=== PATIENT | male | born 1955 | race Caucasian/White ===

== ENCOUNTER 2017-07-18 22:10 | Inpatient (IN) | payer MEDICAID ==
[~2017-07-18] VITALS: Ht 175.3 cm; Wt 95.8 kg
[~2017-07-18 22:10] MED LIST: ASPI325T4 PO; ATOR20TA17 PO; CARV3.1260 PO; CLOP75TA19 PO; METF500T4 PO; NITR0.4T32 SL; PANT40TA3 PO; VALS320T11 PO; [UNRECOGNIZED DRUG - CODE] TD
[2017-07-18 22:13] VITALS: Ht 175.3 cm; Wt 95.8 kg
[2017-07-18] MEDS ORDERED: ASPIRIN 81 MG TAB PO STA (22:17)
[2017-07-18] MEDS ORDERED: NITROGLYCERIN 2% 1 GM OINT PKT TD ONE (23:00)
[2017-07-18 23:32] LABS: BASOPHIL # 0.1 10^3/ul (0.0-0.1); BASOPHILS % 0.4 % (0.0-2.0); EOSINOPHILS # 0.1 10^3/ul (0.0-0.5); EOSINOPHILS % 0.8 % (0.0-7.0); HEMOGLOBIN 14.9 g/dl (14.0-18.0); LYMPHOCYTES # 2.7 10^3/ul (0.8-2.9); LYMPHOCYTES % 17.8 % (15.0-51.0); MEAN CORPUSCULAR HEMOGLOBIN 30.5 pg (29.0-33.0); MEAN CORPUSCULAR HGB CONC 33.1 g/dl (32.0-37.0); MEAN PLATELET VOLUME 12.6 fl (7.4-10.4); MONOCYTES % 6.4 % (0.0-11.0); NEUTROPHIL # 11.3 10^3/ul (1.6-7.5); NEUTROPHILS % 74.1 % (39.0-77.0); PLATELET COUNT 205 10^3/UL (140-415); RED BLOOD COUNT 4.89 10^6/ul (4.70-6.10); WHITE BLOOD COUNT 15.2 10^3/ul (4.8-10.8)
[2017-07-18 23:48] LABS: INR 1.01; PROTIME 13.3 Sec (12.2-14.2)
[2017-07-18 23:49] LABS: PARTIAL THROMBOPLASTIN TIME 28.4 Sec (25.0-35.0)
[2017-07-18 23:51] LABS: ANION GAP 13 (8-16); BLOOD UREA NITROGEN 13 mg/dl (7-20); CARBON DIOXIDE 25 mmol/L (21-31); CHLORIDE 104 mmol/L (97-110); CREATININE 0.78 mg/dl (0.61-1.24); GLUCOSE 270 mg/dl (70-220); POTASSIUM 4.2 mmol/L (3.5-5.1); SODIUM 138 mmol/L (135-144)
--- NOTE | 2017-07-18 23:51 | ERA ---
ER Documentation Chief Complaint Date/Time DATE: 07/18/17 TIME: 23:43 Chief Complaint CP AND SOB HPI This 62-year-old male comes emergency room for acute onset of chest pain and shortness of breath proximately 1 hour prior to arrival. The pain is left- sided and substernal described as a pressure-like squeezing sensation. He has no nausea. In the ambulance he received 3 sprays of nitroglycerin as well as 162 mg of aspirin. He was saturating 82% when the paramedics arrived at his home on room air. This decreases chest pain substantially and it is almost completely subsided currently. He still feels very short of breath . ROS All systems reviewed and are negative except as per history of present illness. Medications Home Meds Reported Medications Valsartan* (Diovan*) 320 Mg Tablet, 320 MG PO BID 04/27/13 Nitroglycerin* (Nitroglycerin* SL) 0.4 Mg Tab.subl, 0.4 MG SL [id number] 08/18/12 Nitroglycerin* (Nitro-Dur* Patch) 1 Patch Patch, 1 PATCH TD q24h 08/18/12 Metformin* (Glucophage*) 500 Mg Tab, 500 MG PO BID 08/18/12 Clopidogrel Bisulfate (Plavix) 75 Mg Tablet, 75 MG PO DAILY 08/18/12 Atorvastatin (Lipitor) 20 Mg Tablet, 20 MG PO DAILY 08/18/12 Pantoprazole* (Protonix*) 40 Mg Tablet.dr, 40 MG PO DAILY 08/18/12 Aspirin* (Aspirin*) 325 Mg Tablet, 325 MG PO DAILY 08/18/12 Carvedilol* (Carvedilol*) 3.125 Mg Tablet, 3.125 MG PO BID 08/18/12 Allergies Allergies: Coded Allergies: No Known Allergy (Verified , 04/27/13) PMhx/Soc History of Surgery: No Anesthesia Reaction: No Hx Neurological Disorder: No Hx Respiratory Disorders: No Hx Cardiac Disorders: Yes ([place] 2008 w/PTCA/Stent RCA VPH) Hx Psychiatric Problems: No Hx Alcohol Use: No (social) Hx Substance Use: No Hx Tobacco Use: Yes (1 pk/day) Smoking Status: Former smoker Physical Exam Vitals Vital Signs Date Time Temp Pulse Resp B/P Pulse Ox O2 Delivery O2 Flow Rate FiO2 07/19/17 00:20 102 20 94 100 07/19/17 00:10 80 100 07/18/17 23:16 96 15.0 100 07/18/17 22:35 Rebreather 10.0 07/18/17 22:30 Rebreather 15 07/18/17 22:13 98.7 97 33 161/90 97 Physical Exam Const: [] Moderate to severe respiratory distress, appears extremely uncomfortable. Eyes: Normal Conjunctiva ENT: Normal External Ears, Nose and Mouth. Neck: Full range of motion..Moderate JVD. Resp: Bilateral bibasilar rales with decreased bibasilar breath sounds, accessory muscle use of the abdominal muscles as well as tachypnea with respiratory rate approximately 36-40.. Cardio: Regular rate and rhythm, no murmurs Abd: Soft, non tender, non distended. Normal bowel sounds Skin: No petechiae or rashes Back: No midline or flank tenderness Ext: No cyanosis, or edema Neur: Awake and alertAnd oriented 3, no focal deficits. Psych: Anxiety Result Diagram: 07/18/17223107/18/172231 Results 24 hrs Laboratory Tests Test 07/18/17 22:32 White Blood Count 15.210^3/ul Red Blood Count 4.8910^6/ul Hemoglobin 14.9g/dl Hematocrit 45.0% Mean Corpuscular Volume 92.0fl Mean Corpuscular Hemoglobin 30.5pg Mean Corpuscular Hemoglobin Concent 33.1g/dl Red Cell Distribution Width 13.0% Platelet Count 02151^3/UL Mean Platelet Volume 12.6fl Neutrophils % 74.1% Lymphocytes % 17.8% Monocytes % 6.4% Eosinophils % 0.8% Basophils % 0.4% Nucleated Red Blood Cells % 0.0/100WBC Neutrophils # 11.310^3/ul Lymphocytes # 2.710^3/ul Monocytes # 1.010^3/ul Eosinophils # 0.110^3/ul Basophils # 0.110^3/ul Nucleated Red Blood Cells # 0.010^3/ul Prothrombin Time 13.3Sec Prothrombin Time Ratio 1.0 INR International Normalized Ratio 1.01 Activated Partial Thromboplast Time 28.4Sec Sodium Level 138mmol/L Potassium Level 4.2mmol/L Chloride Level 104mmol/L Carbon Dioxide Level 25mmol/L Anion Gap 13 Blood Urea Nitrogen 13mg/dl Creatinine 0.78mg/dl Glucose Level 270mg/dl Calcium Level 9.0mg/dl Troponin I < 0.012ng/ml B-Type Natriuretic Peptide 2290PG/ML Current Medications Medications (Trade) Dose Ordered Sig/Masha Route PRN Reason Start Time Stop Time Status Last Admin Dose Admin Aspirin (Aspirin) 162 mg ONCE STAT PO 07/18/17 22:17 07/18/17 22:19 DC 07/18/17 22:30 Nitroglycerin (Nitroglycerin 2% Oint) 1 inch ONCE ONCE TD 07/18/17 23:00 07/18/17 23:01 DC 07/18/17 22:50 Lorazepam (Ativan) 1 mg ONCE ONCE IV 07/19/17 00:00 07/19/17 00:01 DC 07/19/17 00:29 Lorazepam (Ativan) 1 mg ONCE ONCE IV 07/19/17 00:00 07/19/17 00:01 DC 07/19/17 00:29 Furosemide 40 mg 40 mg ONCE ONCE IV 07/19/17 00:30 07/19/17 00:31 DC 07/19/17 00:25 Nitroglycerin/ Dextrose (Nitroglycerin 50 Mg/D5W (Pmx)) 250 ml @ 0 mls/hr TITRATE IV 07/19/17 00:30 07/19/17 00:20 Ondansetron HCl 4 mg 4 mg ONCE STAT IV 07/19/17 00:10 07/19/17 00:15 DC 07/19/17 00:25 Propofol 100 ml @ 0 mls/hr TITRATE ONCE IV 07/19/17 00:30 07/19/17 00:31 DC 07/19/17 00:26 Nitroglycerin/ Dextrose (Nitroglycerin 50 Mg/D5W (Pmx)) 250 ml @ ud STK-MED ONCE .ROUTE 07/19/17 00:18 07/19/17 00:19 DC Procedures/MDM Acute decompensated congestive heart failure with chest pain. Patient is in significant respiratory distress on arrival. He adamantly refuses BiPAP multiple attempts by myself and the charge nurse to tell him that he would likely end up intubated if he does not allow it. Was started on a nitro drip as his heart rate went up after the nitro spray and pasted worn off. Decompensation continued and the patient began to desat he finally allowed for BiPAP after he was given 2 mg of Ativan began to lose mental status with desaturation on BiPAP. He was intubated with return of a large amount of frothy pimk sputum. Was a delay in his chest x-ray which did reveal diffuse pulmonary edema. Was placed on propofol drip.Was also given Lasix 40 mg and 162 mg of aspirin and nitro placed had been applied. Is going to be admitted to ICU under Dr. Foster EKG interpretation: Normal sinus rhythm rate of 98, T-wave inversions in the inferior leads concerning for ischemia, possible hyperacute T waves, no ST elevations or depressions concerning for acute ischemia, normal intervals. vehicle monitor technician interpretation: Alternated high normal sinus rhythm and sinus tachycardia without other arrhythmia Chest x-ray interpretation: Diffuse pulmonary edema without pneumothorax, no fractures, no widened mediastinum. Critical care time 46 minutes: This includes management of acute decompensated congestive heart failure with unstable blood pressure, respiratory rate and hypoxia, ventilator management, use of nitro drip, chart review, discussion with patient's family, patient and admitting doctor, multiple visits patient's bedside to reassess status. This does not include any billable procedures ET intubation note: Patient was preoxygenated with bag mask ventilation and oxygen saturation maximum of 96 able to obtain, RSI was used with 20 mg of etomidate and 100 mg of rocuronium, size 7.5 ET tube was easily introduced through visualized vocal cords using a MAC 4 blade. Patient taught the procedure with no complications. Oxygen saturation is 100% after the procedure. Departure Diagnosis: Primary Impression: Acute CHF Additional Impressions: Acute respiratory failure with hypoxia Chest pain Hyperglycemia due to type 2 diabetes mellitus Condition: Critical BOB WHITING DO Jul 18, 2017 23:51
[2017-07-19] VITALS (52 sets, daily range): BP systolic 89–135; BP diastolic 47–75; PULSE 71–82; RESP 18–28; TEMP 98.6
[2017-07-19] MEDS ORDERED: LORAZEPAM 2 MG INJ IV ONE ×2
[2017-07-19 00:07] LABS: B-TYPE NATRIURETIC PEPTIDE 2290 PG/ML (0-125)
[2017-07-19] MEDS ORDERED: ONDANSETRON 4 MG INJ IV STA (00:10)
[2017-07-19 00:11] LABS: TROPONIN-I < 0.012 ng/ml (0.00-0.12)
[2017-07-19] MEDS ORDERED: NITROGLYCERIN 50 MG/D5W (PMX) 250 ML ONE (00:18)
[2017-07-19] MEDS ORDERED: PROPOFOL 100 ML IV ONE (00:30)
[2017-07-19] MEDS ORDERED: NITROGLYCERIN 50 MG/D5W (PMX) 250 ML IV SCH (00:30)
[2017-07-19] MEDS ORDERED: FUROSEMIDE 40 MG INJ IV ONE (00:30)
--- NOTE | 2017-07-19 00:35 | RADRPT ---
PROCEDURE: XR Chest. CLINICAL INDICATION: Chest pain TECHNIQUE: Single frontal view of the chest was obtained COMPARISON: 04/27/2013 FINDINGS: There is appearance of minimal enlargement of the cardiac silhouette, pulmonary vascular congestion and bilateral lung densities consistent with interstitial and alveolar pulmonary edema and very smal l pleural effusions appearing since the previous study. ECG lead projected over the chest. IMPRESSION: Consistent with congestive heart failure and pulmonary edema and very small pleural effusions appear ing since previous study. Please see above. RPTAT: HJES .Darius Briones MD, MD Date Time Electronically viewed and signed by .Darius Briones MD, MD on 07/19/2017 00:34 .S/
[2017-07-19] MEDS ORDERED: ONDANSETRON 4 MG INJ IV PRN (01:30)
[2017-07-19] MEDS ORDERED: ALBUTEROL/IPRATROPIUM (NEB) 3 ML AMP NEB PRN (01:30)
[2017-07-19 01:38] LABS: AADO2 Arterial 586.3 mmHg (7.0-24.0); Allen Test ACCEPTAB; Arterial Base Excess -3.9 mmol/L (-3.0-3); Arterial COHb 0.4 % (0.0-3.0); Arterial Fraction of Oxyhgb 90.3 % (93.0-99.0); Arterial MetHb 0.3 % (0.0-1.5); Arterial Total Hemglobin 19.2 g/dl (12.0-18.0); MODE VENT - AC
[2017-07-19] MEDS ORDERED: DEXTROSE 50% 50 ML SYRINGE IV PRN ×2 (02:00)
[2017-07-19] MEDS ORDERED: GLUCOSE GEL 15 GRAM TUBE BUCCAL PRN (02:00)
[2017-07-19] MEDS ORDERED: GLUCOSE GEL 15 GRAM TUBE PO PRN ×2 (02:00)
[2017-07-19] MEDS ORDERED: GLUCAGON 1 MG INJ IM PRN (02:00)
[2017-07-19] MEDS: ACCU-CHEK XX SCH (02:36)
--- NOTE | 2017-07-19 02:41 | RADRPT ---
PROCEDURE: XR Chest. CLINICAL INDICATION: The patient is status post intubation. TECHNIQUE: Single frontal view of the chest. COMPARISON: 04/27/2013. FINDINGS: Endotracheal intubation is seen, with tip about 4 cm above the lefty. Cardiomegaly with atheroscler otic calcifications in the thoracic aorta. Dense bilateral air space disease is new over interval, with air bronchograms. There is a mild left pleural effusion. The right costophrenic angle is not included on the film, and cannot be evaluated. No signs of pneumothorax are seen. The osseous structures and soft tissues are unremarkable. IMPRESSION: 1. New dense bilateral air space disease, with air bronchograms. 2. Differential considerations include severe failure versus bilateral pneumonias. 3. New endotracheal intubation is seen, with tip about 4 cm above the lefty. RPTAT: [facility] Physician Vincent Date Time Electronically viewed and signed by Physician Vincent on 07/19/2017 02:40 RS/
[2017-07-19] MEDS ORDERED: INSULIN LISPRO 100 UNIT/ML VIAL SC STA ×2 (03:05→05:42)
[2017-07-19] MEDS: PROPOFOL 100 ML IV SCH ×5 (04:14→23:33)
[2017-07-19] MEDS ORDERED: DEXTROSE 5%-0.45% NACL 1,000 ML IV SCH (04:30)
[2017-07-19] MEDS ORDERED: INSULIN ASPART [NOVOLOG] 3 ML PEN SC SCH ×2 (05:00→07:35)
[2017-07-19] MEDS ORDERED: INSULIN ASPART [NOVOLOG] 3 ML PEN SC ONE ×2 (05:30→06:00)
[2017-07-19 05:35] LABS: AADO2 Arterial 585.1 mmHg (7.0-24.0); Allen Test ACCEPTAB; Arterial Base Excess -1.1 mmol/L (-3.0-3); Arterial COHb 1.4 % (0.0-3.0); Arterial Fraction of Oxyhgb 95.5 % (93.0-99.0); Arterial HCO3 23.5 mmol/L (22.0-26.0); Arterial MetHb 0.2 % (0.0-1.5); Arterial Total Hemglobin 16.6 g/dl (12.0-18.0); MODE VENT - AC
[2017-07-19 05:37] LABS: BASOPHIL # 0.1 10^3/ul (0.0-0.1); BASOPHILS % 0.3 % (0.0-2.0); EOSINOPHILS % 0.1 % (0.0-7.0); HEMATOCRIT 47.9 % (42.0-52.0); HEMOGLOBIN 15.9 g/dl (14.0-18.0); LYMPHOCYTES # 1.9 10^3/ul (0.8-2.9); LYMPHOCYTES % 11.9 % (15.0-51.0); MEAN CORPUSCULAR HEMOGLOBIN 30.8 pg (29.0-33.0); MEAN CORPUSCULAR HGB CONC 33.2 g/dl (32.0-37.0); MEAN CORPUSCULAR VOLUME 92.8 fl (82.0-101.0); MEAN PLATELET VOLUME 12.3 fl (7.4-10.4); MONOCYTE # 1.4 10^3/ul (0.3-0.9); MONOCYTES % 8.8 % (0.0-11.0); NEUTROPHIL # 12.8 10^3/ul (1.6-7.5); NEUTROPHILS % 78.5 % (39.0-77.0); PLATELET COUNT 184 10^3/UL (140-415); RED BLOOD COUNT 5.16 10^6/ul (4.70-6.10); RED CELL DISTRIBUTION WIDTH 12.7 % (11.5-14.5); WHITE BLOOD COUNT 16.3 10^3/ul (4.8-10.8)
--- NOTE | 2017-07-19 05:51 | HP ---
Date/Time of Note Date/Time of Note DATE: 07/19/17 TIME: 05:36 Assessment/Plan VTE Prophylaxis VTE Prophylaxis Intervention: heparin Lines/Catheters IV Catheter Type (from Nrsg): Saline Lock Urinary Cath still in place: Yes Reason Cath still needed: terminal illness/intractable pain Assessment/Plan Assessment/Plan 1. Hypoxic and hypercarbic respiratory failure, s/p intubation. This is most likely from CHF exacerbation -Continue vent support -Breathing treatments -IV Lasix -Monitor urine output -2D echo -Pulmonary consult -will send additional troponin, initially given history of CAD -Repeat ABG in am. 2. Acute on chronic CHF, systolic -See #1 -Cardiology consult 3. Diabetes with hyperglycemia -Adjust insulin as needed for better glycemic control -Check A1c in a.m. 4. SIRS, no obvious source of infection -Chest x-ray without infiltrate. Will obtain UA, urine culture and blood culture 5. History of CAD, s/p PCI with stent in 2012 -Continue cardiac meds -Trend troponin -2D echo and cardiology consult HPI/ROS Admit Date/Time Admit Date/Time Jul 19, 2017 at 00:28 Hx of Present Illness This is a 62-year-old male with a history of diabetes hypertension CAD status post PCI with stent in 2012 and a CHF with systolic dysfunction with EF of 30% in 2012, noncompliance who presented to the emergency department complaining of shortness of breath. Patient was hypoxic with O2 sat of 82% and was using his accessory muscles when he presented to ER. He was initially placed on BiPAP and now he is intubated and admitted to ICU. ABG on FiO2 of 100% shows pH 7.24 , PCO2 59, PO2 67 and a bicarb 25. Labs shows a WBC of 15,000, glucose 300 and a BNP 2300. Chest x-ray consistent with congestive heart failure and pulmonary edema and very small pleural effusions appearing since previous study from 2012. . PMH/Family/Social Social History Smoking Status: Former smoker Exam/Review of Systems Vital Signs Vitals Vital Signs Date Time Temp Pulse Resp B/P Pulse Ox O2 Delivery O2 Flow Rate FiO2 07/19/17 05:02 100 07/19/17 04:48 78 25 99 07/19/17 04:45 101/68 07/19/17 04:30 Mechanical Ventilator 07/19/17 04:00 100.0 07/19/17 02:30 15.0 Intake and Output 07/18/17 07/18/17 07/19/17 15:00 23:00 07:00 Intake Total 15 ml Output Total 850 ml Balance -835 ml Exam Constitutional: other (Intubated, looks comfortable on a vent) Head: atraumatic, normocephalic Eyes: PERRL Respiratory: diminished breath sounds Cardiovascular: regular rate and rhythm Gastrointestinal: non-tender, soft Extremities: normal pulses Labs Result Diagram: 07/18/17223107/18/172231 Medications Medications Current Medications Nitroglycerin/ Dextrose (Nitroglycerin 50 Mg/D5W (Pmx)) 250 ml @ 0 mls/hr TITRATE IV Last administered on 07/19/17 00:20; Admin Dose 5 MLS/HR; Start at 00:30 Ondansetron HCl (Zofran Inj) 4 mg Q6H PRN IV NAUSEA AND/OR VOMITING; Start at 01:30 Acetaminophen (Tylenol Liquid) 650 mg Q6H PRN PO PAIN LEVEL 1-3 OR FEVER; Start 07/19/17 at 01:30 Morphine Sulfate (morphine) 2 mg Q4H PRN IV PAIN LEVEL 7-10; Start 07/19/17 at 01:30 Lorazepam (Ativan) 1 mg Q2H PRN IV ANXIETY; Start 07/19/17 at 01:30 Famotidine (Pepcid Iv) 20 mg Q12 IV ; Start 07/19/17 at 09:00 Heparin Sodium (Porcine) (Heparin (5000 Units/0.5 ml)) 5,000 unit Q12 SC ; Start 07/19/17 at 09:00 Diagnostic Test (Pha) (Accu-Chek) 1 ea 02 XX Last administered on 07/19/17 02: 36; Admin Dose 1 EA; Start 07/19/17 at 02:00 Insulin Glargine (Lantus) 15 unit DAILY@08 SC ; Start 07/19/17 at 08:00 Furosemide (Lasix) 40 mg DAILY IV ; Start 07/19/17 at 09:00 Aspirin (Aspirin) 325 mg DAILY PO ; Start 07/19/17 at 09:00 Atorvastatin Calcium (Lipitor) 20 mg DAILY PO ; Start 07/19/17 at 09:00 Carvedilol (Coreg) 3.125 mg BID PO ; Start 07/19/17 at 09:00 Clopidogrel Bisulfate (plaVIX) 75 mg DAILY PO ; Start 07/19/17 at 09:00 Valsartan (Diovan) 320 mg DAILY PO ; Start 07/19/17 at 09:00; Status Future Hold Miscellaneous Information 1 ea NOTE XX ; Start 07/19/17 at 02:00 Glucose (Glutose) 15 gm Q15M PRN PO DECREASED GLUCOSE; Start 07/19/17 at 02:00 Glucose (Glutose) 22.5 gm Q15M PRN PO DECREASED GLUCOSE; Start 07/19/17 at 02: 00 Dextrose (D50w Syringe) 25 ml Q15M PRN IV DECREASED GLUCOSE; Start 07/19/17 at 02:00 Dextrose (D50w Syringe) 50 ml Q15M PRN IV DECREASED GLUCOSE; Start 07/19/17 at 02:00 Glucagon (Glucagen) 1 mg Q15M PRN IM DECREASED GLUCOSE; Start 07/19/17 at 02:00 Glucose (Glutose) 15 gm Q15M PRN BUCCAL DECREASED GLUCOSE; Start 07/19/17 at 02 :00 Insulin Aspart (Adult SC Insulin - Mild Algorithm)... Q4 SC ; Start 07/19/17 at 05:00 Dextrose/Sodium Chloride (D5-1/2ns) 1,000 ml @ 50 mls/hr Q20H IV Last administered on 07/19/17t 05:29; Admin Dose 50 MLS/HR; Start 07/19/17 at 04:30 SHIRLEY JEAN MD Jul 19, 2017 05:46
[2017-07-19] MEDS ORDERED: LEVOFLOXACIN 500MG/D5W (PMX) 100 ML IVPB SCH (06:00)
[2017-07-19 06:17] LABS: CK-MB 6.16 ng/ml (0.0-2.4); TROPONIN-I 0.22 ng/ml (0.00-0.12)
[2017-07-19] MEDS: Insulin NOVOLOG SS MILD Algorithm (NPO/TPN/ENTERAL FEEDS) SC SCH ×5 (06:20→20:32)
[2017-07-19 06:46] LABS: ALBUMIN 3.4 g/dl (3.3-4.9); ALBUMIN/GLOBULIN RATIO 1.21; BILIRUBIN,INDIRECT 0.7 mg/dl (0-1.1); BILIRUBIN,TOTAL 0.7 mg/dl (0.2-1.3); CREATININE 1.09 mg/dl (0.61-1.24); POTASSIUM 5.4 mmol/L (3.5-5.1); TOTAL PROTEIN 6.2 g/dl (6.1-8.1)
[2017-07-19] MEDS ORDERED: ROCURONIUM 50 MG INJ ONE (07:00)
[2017-07-19] MEDS ORDERED: ETOMIDATE 20 MG INJ ONE (07:00)
[2017-07-19] MEDS ORDERED: HEPARIN 5,000 UNIT/0.5 ML VIAL ONE (07:53)
[2017-07-19] MEDS ORDERED: ASPIRIN 325 MG TAB ONE (07:55)
[2017-07-19] MEDS ORDERED: ATORVASTATIN 20 MG TAB ONE (07:55)
[2017-07-19] MEDS ORDERED: CLOPIDOGREL 75 MG TAB ONE (07:55)
[2017-07-19] MEDS ORDERED: FAMOTIDINE 20 MG INJ ONE (07:56)
[2017-07-19] MEDS: FAMOTIDINE 20 MG INJ IV SCH ×2 (08:04→20:21)
[2017-07-19] MEDS: ATORVASTATIN 20 MG TAB PO SCH (08:04)
[2017-07-19] MEDS: CLOPIDOGREL 75 MG TAB PO SCH (08:04)
[2017-07-19] MEDS: HEPARIN 5,000 UNIT/0.5 ML VIAL SC SCH ×2 (08:09→20:26)
[2017-07-19 08:54] LABS: ADD UMIC YES; UR ASCORBIC ACID NEGATIVE (NEGATIVE); UR BACTERIA FEW /HPF (NONE SEEN); UR BILIRUBIN (Dip) NEGATIVE (NEGATIVE); UR BLOOD (Dip) 2+ mg/dL (NEGATIVE); UR CLARITY SLIGHTLY CLOUDY (CLEAR); UR COLOR YELLOW (YELLOW); UR GLUCOSE (Dip) 3+ mg/dL (NEGATIVE); UR KETONES (Dip) NEGATIVE (NEGATIVE); UR LEUKOCYTE ESTERASE (Dip) NEGATIVE Leu/ul (NEGATIVE); UR MUCUS FEW /HPF (NONE SEEN); UR NITRITE (Dip) NEGATIVE (NEGATIVE); UR RBC 12 /HPF (0-5); UR SPECIFIC GRAVITY (Dip) 1.013 (1.003-1.030); UR TOTAL PROTEIN (Dip) 2+ mg/dl (NEGATIVE); UR UROBILINOGEN (Dip) NEGATIVE (NEGATIVE)
[2017-07-19] MEDS ORDERED: ASPIRIN 325 MG TAB PO SCH (09:00)
[2017-07-19] MEDS ORDERED: FUROSEMIDE 40 MG INJ IV SCH (09:00)
[2017-07-19] MEDS ORDERED: VALSARTAN 160 MG TAB PO SCH (09:00)
[2017-07-19] MEDS: INSULIN GLARGINE [LANtus] 3 ML PEN SC SCH (09:01)
--- NOTE | 2017-07-19 09:26 | PN ---
Date/Time of Note Date/Time of Note DATE: 07/19/17 TIME: 09:21 Assessment/Plan VTE Prophylaxis VTE Prophylaxis Intervention: LMWH Lines/Catheters IV [facility] Type (from [facility] Peripheral IV Urinary Cath still in place: Yes Reason Cath still needed: urinary retention Assessment/Plan Chief Complaint/Hosp Course Assessment/Plan: 62-year-old male with a history of diabetes hypertension CAD status post PCI with stent in 2012 and a CHF with systolic dysfunction with EF of 30% in 2013, noncompliance who presented to the emergency department complaining of shortness of breath, now intubated 1. Hypoxic and hypercarbic respiratory failure- s/p intubation. This is most likely from CHF exacerbation, as well as possible pneumonia given elevated white blood cell count and fevers. -Continue vent support, follow-up pulmonary consult recommendations -Breathing treatments, broad-spectrum antibiotics -IV Lasix -Monitor urine output -Follow-up 2D echo -will send additional troponin, initially given history of CAD 2. Acute on chronic CHF, systolic. BNP on admission was 2300 -See #1, Lasix and low-dose beta-jerardo -Cardiology consult 3. Diabetes with hyperglycemia -Adjust insulin as needed for better glycemic control -Follow-up A1c in a.m. 4. SIRS-likely secondary to upper respiratory infection -Continue broad-spectrum antibiotics, follow final culture results, consider ID consult 5. History of CAD, s/p PCI with stent in 2012. Again, second troponin is elevated as well, possible sign of non-ST elevation [place]. -Continue cardiac meds, will add Lovenox 1 mg/kg twice daily -Trend troponin, obtain cardiology consult, follow-up echocardiogram results Critical care time spent on patient care today equals 45 minutes. Problems: Exam/Review of Systems Vital Signs Vitals Vital Signs Date Time Temp Pulse Resp B/P Pulse Ox O2 Delivery O2 Flow Rate FiO2 07/19/17 09:00 75 20 108/67 99 Mechanical Ventilator 07/19/17 08:30 100.3 07/19/17 08:00 100 07/19/17 02:30 15.0 Intake and Output 07/18/17 07/18/17 07/19/17 14:59 22:59 06:59 Intake Total 81.8 ml Output Total 1100 ml Balance -1018.2 ml Exam Constitutional: Lying in bed, intubated Head: atraumatic, normocephalic Eyes: PERRL Respiratory: diminished breath sounds Cardiovascular: regular rate and rhythm Gastrointestinal: non-tender, soft Extremities: normal pulses Results Result Diagram: 07/19/17 0451 07/19/17 0451 Results 24 hrs Laboratory Tests Test 07/18/17 22:32 07/19/17 00:37 07/19/17 02:17 07/19/17 04:10 White Blood Count 15.2 H Red Blood Count 4.89 Hemoglobin 14.9 Hematocrit 45.0 Mean Corpuscular Volume 92.0 Mean Corpuscular Hemoglobin 30.5 Mean Corpuscular Hemoglobin Concent 33.1 Red Cell Distribution Width 13.0 Platelet Count 205 Mean Platelet Volume 12.6 H Neutrophils % 74.1 Lymphocytes % 17.8 Monocytes % 6.4 Eosinophils % 0.8 Basophils % 0.4 Nucleated Red Blood Cells % 0.0 Neutrophils # 11.3 H Lymphocytes # 2.7 Monocytes # 1.0 H Eosinophils # 0.1 Basophils # 0.1 Nucleated Red Blood Cells # 0.0 Prothrombin Time 13.3 Prothrombin Time Ratio 1.0 INR International Normalized Ratio 1.01 Activated Partial Thromboplast Time 28.4 Sodium Level 138 Potassium Level 4.2 Chloride Level 104 Carbon Dioxide Level 25 Anion Gap 13 Blood Urea Nitrogen 13 Creatinine 0.78 Glucose Level 270 H Calcium Level 9.0 Troponin I < 0.012 B-Type Natriuretic Peptide 2290 H Blood Gas Specimen Source Blood arterial Arterial Blood Date Drawn 07/19/2017 1:28:11 AM Arterial Blood pH (Temp corrected) 7.243 *L Arterial Blood pCO2 (Temp correct) 59.3 H Arterial Blood pO2 (Temp corrected) 67.4 L Arterial Blood HCO3 25.0 Arterial Blood Base Excess -3.9 L Arterial Blood Oxygen Saturation 90.9 L Jean Test ACCEPTAB Arterial Blood Gas Puncture Site Right Radial Arterial Blood Carboxyhemoglobin 0.4 Arterial Blood Methemoglobin 0.3 Blood Gas A-a O2 Differential 586.3 H Oxyhemoglobin Percent 90.3 L Total Hemoglobin 19.2 H Blood Gas Temperature 37.0 Blood Gas Respiration Rate 20.0 Blood Gas Actual Respiration Rate 20 Blood Gas Modality VENT - AC FiO2 100.0 Blood Gas Tidal Volume 550.0 Blood Gas Low PEEP Setting 5.0 Blood Gas Inspiratory Pressure 38.0 Blood Gas Critical Value Read Back Chong WHITING DO Blood Gas Notified Whom KM Blood Gas Notified Time 07/19/2017 1:38:16 AM Bedside Glucose 320 H 293 H Test 07/19/17 04:51 07/19/17 05:00 07/19/17 06:16 07/19/17 06:30 White Blood Count 16.3 H Red Blood Count 5.16 Hemoglobin 15.9 Hematocrit 47.9 Mean Corpuscular Volume 92.8 Mean Corpuscular Hemoglobin 30.8 Mean Corpuscular Hemoglobin Concent 33.2 Red Cell Distribution Width 12.7 Platelet Count 184 Mean Platelet Volume 12.3 H Neutrophils % 78.5 H Lymphocytes % 11.9 L Monocytes % 8.8 Eosinophils % 0.1 Basophils % 0.3 Nucleated Red Blood Cells % 0.0 Neutrophils # 12.8 H Lymphocytes # 1.9 Monocytes # 1.4 H Eosinophils # 0.0 Basophils # 0.1 Nucleated Red Blood Cells # 0.0 Sodium Level 137 Potassium Level 5.4 H Chloride Level 103 Carbon Dioxide Level 27 Anion Gap 12 Blood Urea Nitrogen 18 Creatinine 1.09 Glucose Level 290 H Calcium Level 9.0 Total Bilirubin 0.7 Direct Bilirubin 0.00 Indirect Bilirubin 0.7 Aspartate Amino Transf (AST/SGOT) 25 Alanine Aminotransferase (ALT/SGPT) 26 Alkaline Phosphatase 68 Creatine Kinase 305 H Creatine Kinase Index 2.0 Creatinine Kinase MB (Mass) 6.16 H Troponin I 0.220 *H Total Protein 6.2 Albumin 3.4 Globulin 2.80 Albumin/Globulin Ratio 1.21 Blood Gas Specimen Source Blood arterial Arterial Blood Date Drawn 07/19/2017 5:11:50 AM Arterial Blood pH (Temp corrected) 7.395 Arterial Blood pCO2 (Temp correct) 39.2 Arterial Blood pO2 (Temp corrected) 88.7 Arterial Blood HCO3 23.5 Arterial Blood Base Excess -1.1 Arterial Blood Oxygen Saturation 97.1 Jean Test ACCEPTAB Arterial Blood Gas Puncture Site Right Radial Arterial Blood Carboxyhemoglobin 1.4 Arterial Blood Methemoglobin 0.2 Blood Gas A-a O2 Differential 585.1 H Oxyhemoglobin Percent 95.5 Total Hemoglobin 16.6 Blood Gas Temperature 37.0 Blood Gas Respiration Rate 20.0 Blood Gas Actual Respiration Rate 24 Blood Gas Modality VENT - AC FiO2 100.0 Blood Gas Tidal Volume 550.0 Blood Gas Low PEEP Setting 5.0 Blood Gas Inspiratory Pressure 25.0 Blood Gas Notified Whom RTR Blood Gas Notified Time 07/19/2017 5:34:58 AM Bedside Glucose 273 H Urine Color YELLOW Urine Clarity SLIGHTLY CLOUDY A Urine pH 5.0 Urine Specific Zephyr 1.013 Urine Ketones NEGATIVE Urine Nitrite NEGATIVE Urine Bilirubin NEGATIVE Urine Urobilinogen NEGATIVE Urine Leukocyte Esterase NEGATIVE Urine Microscopic RBC 12 H Urine Microscopic WBC 13 H Urine Bacteria FEW A Urine Hyaline Casts FEW A Urine Mucus FEW A Urine Hemoglobin 2+ H Urine Glucose 3+ H Urine Total Protein 2+ H Test 07/19/17 08:03 07/19/17 08:50 Bedside Glucose 228 H 213 Medications Medications Current Medications Nitroglycerin/ Dextrose (Nitroglycerin 50 Mg/D5W (Pmx)) 250 ml @ 0 mls/hr TITRATE IV Last administered on 07/19/17 00:20; Admin Dose 5 MLS/HR; Start at 00:30 Ondansetron HCl (Zofran Inj) 4 mg Q6H PRN IV NAUSEA AND/OR VOMITING; Start at 01:30 Acetaminophen (Tylenol Liquid) 650 mg Q6H PRN PO PAIN LEVEL 1-3 OR FEVER; Start 07/19/17 at 01:30 Morphine Sulfate (morphine) 2 mg Q4H PRN IV PAIN LEVEL 7-10; Start 07/19/17 at 01:30 Lorazepam (Ativan) 1 mg Q2H PRN IV ANXIETY; Start 07/19/17 at 01:30 Famotidine (Pepcid Iv) 20 mg Q12 IV Last administered on 07/19/17 08:04; Admin Dose 20 MG; Start 07/19/17 at 09:00 Heparin Sodium (Porcine) (Heparin (5000 Units/0.5 ml)) 5,000 unit Q12 SC Last administered on 07/19/17 08:09; Admin Dose 5,000 UNIT; Start 07/19/17 at 09:00 Diagnostic Test (Pha) (Accu-Chek) 1 ea 02 XX Last administered on 07/19/17 02: 36; Admin Dose 1 EA; Start 07/19/17 at 02:00 Insulin Glargine (Lantus) 15 unit DAILY@08 SC Last administered on 07/19/17 09 :01; Admin Dose 15 UNIT; Start 07/19/17 at 08:00 Furosemide (Lasix) 40 mg DAILY IV Last administered on 07/19/17 08:04; Admin Dose 40 MG; Start 07/19/17 at 09:00 Aspirin (Aspirin) 325 mg DAILY PO Last administered on 07/19/17 08:04; Admin Dose 325 MG; Start 07/19/17 at 09:00 Atorvastatin Calcium (Lipitor) 20 mg DAILY PO Last administered on 07/19/17 08 :04; Admin Dose 20 MG; Start 07/19/17 at 09:00 Carvedilol (Coreg) 3.125 mg BID PO Last administered on 07/19/17 08:05; Admin Dose 3.125 MG; Start 07/19/17 at 09:00 Clopidogrel Bisulfate (plaVIX) 75 mg DAILY PO Last administered on 07/19/17 08 :04; Admin Dose 75 MG; Start 07/19/17 at 09:00 Valsartan (Diovan) 320 mg DAILY PO ; Start 07/19/17 at 09:00; Status Future Hold Miscellaneous Information 1 ea NOTE XX ; Start 07/19/17 at 02:00 Glucose (Glutose) 15 gm Q15M PRN PO DECREASED GLUCOSE; Start 07/19/17 at 02:00 Glucose (Glutose) 22.5 gm Q15M PRN PO DECREASED GLUCOSE; Start 07/19/17 at 02: 00 Dextrose (D50w Syringe) 25 ml Q15M PRN IV DECREASED GLUCOSE; Start 07/19/17 at 02:00 Dextrose (D50w Syringe) 50 ml Q15M PRN IV DECREASED GLUCOSE; Start 07/19/17 at 02:00 Glucagon (Glucagen) 1 mg Q15M PRN IM DECREASED GLUCOSE; Start 07/19/17 at 02:00 Glucose (Glutose) 15 gm Q15M PRN BUCCAL DECREASED GLUCOSE; Start 07/19/17 at 02 :00 Insulin Aspart (Adult SC Insulin - Mild Algorithm)... Q4 SC Last administered on 07/19/17 08:11; Admin Dose 4 UNIT; Start 07/19/17 at 05:00 Cefepime HCl (Maxipime 2gm/50 ml (Pmx)) 50 ml @ 100 mls/hr Q12 IVPB ; Start at 10:00 Enoxaparin Sodium (Lovenox) 95 mg Q12 SC ; Start 07/19/17 at 09:30; Status UNV RARENATO,RAFFAELE S. Jul 19, 2017 09:26
[2017-07-19] MEDS ORDERED: VANCOMYCIN IV PER PHARMACY XX SCH (09:30)
[2017-07-19] MEDS: ENOXAPARIN 100 MG/ML SYG SC SCH ×2 (10:07→20:27)
[2017-07-19] MEDS: VANCOMYCIN 1 GM in NS 250 ML IVPB SCH ×2 (11:06→13:11)
[2017-07-19] MEDS: CEFEPIME 2GM/50 ML (PMX) 50 ML IVPB SCH ×2 (12:04→20:22)
[2017-07-19] MEDS: LORAZEPAM 2 MG INJ IV PRN ×2 (12:17→18:42)
[2017-07-19 12:24] LABS: CK-MB 3.84 ng/ml (0.0-2.4); TROPONIN-I 0.406 ng/ml (0.00-0.12)
[2017-07-19] MEDS: ACETAMINOPHEN 650MG/20.3ML CUP PO PRN ×2 (12:47→18:53)
--- NOTE | 2017-07-19 14:40 | CONS ---
Date/Time of Note Date/Time of Note DATE: 07/19/17 TIME: 14:35 Assessment/Plan Assessment/Plan Additional Assessment/Plan IMP: 1. Acute Decompensated HF in a patient with ischemic CMY. 2. Demand Ischemia--due to #1 3. Hypercapnic/Hypoxemic Resp Failure--2/2 #1 4. CAD--s/p PCI 5. HTN RECS: 1. Continue diuresis 2. Follow UO and Renal Fxn 3. Obtain ECHO; consider afterload reduction 4. Vent--reduced FiO2 to 60% 5. DVT/GI prophylaxis Consultation Date/Type/Reason Admit Date/Time Jul 19, 2017 at 00:28 Type of Consultation: Pulm Hx of Present Illness This is a 62-year-old male with a history of diabetes, hypertensio,n CAD status post PCI with stent in 2012, and HFrEF of 30% in 2012, noncompliance who presented to the emergency department complaining of shortness of breath. Patient was hypoxemic with O2 sat of 82% and was using his accessory muscles when he presented to ER. He was initially placed on BiPAP and now he is intubated and admitted to ICU. ABG on FiO2 of 100% shows pH 7.24, PCO2 59, PO2 67 and a bicarb 25. Labs shows a WBC of 15,000, glucose 300 and a BNP 2300. Chest x-ray consistent with congestive heart failure and pulmonary edema and very small pleural effusions appearing since previous study from 2012. Subjective hx not possible: pt non-verbal Past Medical History Medical History: angina, congestive heart failure, coronary artery disease Past Surgical History Past Surgical Hx: no surgical history, angioplasty Family History Significant Family History: no pertinent family hx Social History Alcohol Use: none Smoking Status: Former smoker Drug Use: none Exam/Review of Systems Vital Signs Vitals Vital Signs Date Time Temp Pulse Resp B/P Pulse Ox O2 Delivery O2 Flow Rate FiO2 07/19/17 14:00 72 20 89/47 100 Mechanical Ventilator 07/19/17 12:00 101.6 07/19/17 08:00 100 07/19/17 02:30 15.0 Intake and Output 07/18/17 07/18/17 07/19/17 15:00 23:00 07:00 Intake Total 149.8 ml Output Total 1200 ml Balance -1050.2 ml Exam Constitutional: non-verbal Head: atraumatic, normocephalic Eyes: EOMI, nl conjunctiva, nl sclera ENMT: intubated, nl external ears & nose, nl lips & teeth Neck: jvd, non-tender, supple Respiratory: crackles/rales, diminished breath sounds Cardiovascular: irregular rhythm, regular rate and rhythm, systolic murmur Gastrointestinal: nl liver, spleen, soft Extremities: normal pulses Results Result Diagram: 07/19/17 0451 07/19/17 0451 Results 24 hrs Laboratory Tests Test 07/18/17 22:32 07/19/17 00:37 07/19/17 02:17 07/19/17 04:10 White Blood Count 15.2 H Red Blood Count 4.89 Hemoglobin 14.9 Hematocrit 45.0 Mean Corpuscular Volume 92.0 Mean Corpuscular Hemoglobin 30.5 Mean Corpuscular Hemoglobin Concent 33.1 Red Cell Distribution Width 13.0 Platelet Count 205 Mean Platelet Volume 12.6 H Neutrophils % 74.1 Lymphocytes % 17.8 Monocytes % 6.4 Eosinophils % 0.8 Basophils % 0.4 Nucleated Red Blood Cells % 0.0 Neutrophils # 11.3 H Lymphocytes # 2.7 Monocytes # 1.0 H Eosinophils # 0.1 Basophils # 0.1 Nucleated Red Blood Cells # 0.0 Prothrombin Time 13.3 Prothrombin Time Ratio 1.0 INR International Normalized Ratio 1.01 Activated Partial Thromboplast Time 28.4 Sodium Level 138 Potassium Level 4.2 Chloride Level 104 Carbon Dioxide Level 25 Anion Gap 13 Blood Urea Nitrogen 13 Creatinine 0.78 Glucose Level 270 H Calcium Level 9.0 Troponin I < 0.012 B-Type Natriuretic Peptide 2290 H Blood Gas Specimen Source Blood arterial Arterial Blood Date Drawn 07/19/2017 1:28:11 AM Arterial Blood pH (Temp corrected) 7.243 *L Arterial Blood pCO2 (Temp correct) 59.3 H Arterial Blood pO2 (Temp corrected) 67.4 L Arterial Blood HCO3 25.0 Arterial Blood Base Excess -3.9 L Arterial Blood Oxygen Saturation 90.9 L Jean Test ACCEPTAB Arterial Blood Gas Puncture Site Right Radial Arterial Blood Carboxyhemoglobin 0.4 Arterial Blood Methemoglobin 0.3 Blood Gas A-a O2 Differential 586.3 H Oxyhemoglobin Percent 90.3 L Total Hemoglobin 19.2 H Blood Gas Temperature 37.0 Blood Gas Respiration Rate 20.0 Blood Gas Actual Respiration Rate 20 Blood Gas Modality VENT - AC FiO2 100.0 Blood Gas Tidal Volume 550.0 Blood Gas Low PEEP Setting 5.0 Blood Gas Inspiratory Pressure 38.0 Blood Gas Critical Value Read Back Chong WHITING DO Blood Gas Notified Whom KM Blood Gas Notified Time 07/19/2017 1:38:16 AM Bedside Glucose 320 H 293 H Test 07/19/17 04:51 07/19/17 05:00 07/19/17 06:16 07/19/17 06:30 White Blood Count 16.3 H Red Blood Count 5.16 Hemoglobin 15.9 Hematocrit 47.9 Mean Corpuscular Volume 92.8 Mean Corpuscular Hemoglobin 30.8 Mean Corpuscular Hemoglobin Concent 33.2 Red Cell Distribution Width 12.7 Platelet Count 184 Mean Platelet Volume 12.3 H Neutrophils % 78.5 H Lymphocytes % 11.9 L Monocytes % 8.8 Eosinophils % 0.1 Basophils % 0.3 Nucleated Red Blood Cells % 0.0 Neutrophils # 12.8 H Lymphocytes # 1.9 Monocytes # 1.4 H Eosinophils # 0.0 Basophils # 0.1 Nucleated Red Blood Cells # 0.0 Sodium Level 137 Potassium Level 5.4 H Chloride Level 103 Carbon Dioxide Level 27 Anion Gap 12 Blood Urea Nitrogen 18 Creatinine 1.09 Glucose Level 290 H Hemoglobin A1c 10.9 H Calcium Level 9.0 Total Bilirubin 0.7 Direct Bilirubin 0.00 Indirect Bilirubin 0.7 Aspartate Amino Transf (AST/SGOT) 25 Alanine Aminotransferase (ALT/SGPT) 26 Alkaline Phosphatase 68 Creatine Kinase 305 H Creatine Kinase Index 2.0 Creatinine Kinase MB (Mass) 6.16 H Troponin I 0.220 *H Total Protein 6.2 Albumin 3.4 Globulin 2.80 Albumin/Globulin Ratio 1.21 Blood Gas Specimen Source Blood arterial Arterial Blood Date Drawn 07/19/2017 5:11:50 AM Arterial Blood pH (Temp corrected) 7.395 Arterial Blood pCO2 (Temp correct) 39.2 Arterial Blood pO2 (Temp corrected) 88.7 Arterial Blood HCO3 23.5 Arterial Blood Base Excess -1.1 Arterial Blood Oxygen Saturation 97.1 Jean Test ACCEPTAB Arterial Blood Gas Puncture Site Right Radial Arterial Blood Carboxyhemoglobin 1.4 Arterial Blood Methemoglobin 0.2 Blood Gas A-a O2 Differential 585.1 H Oxyhemoglobin Percent 95.5 Total Hemoglobin 16.6 Blood Gas Temperature 37.0 Blood Gas Respiration Rate 20.0 Blood Gas Actual Respiration Rate 24 Blood Gas Modality VENT - AC FiO2 100.0 Blood Gas Tidal Volume 550.0 Blood Gas Low PEEP Setting 5.0 Blood Gas Inspiratory Pressure 25.0 Blood Gas Notified Whom RTR Blood Gas Notified Time 07/19/2017 5:34:58 AM Bedside Glucose 273 H Urine Color YELLOW Urine Clarity SLIGHTLY CLOUDY A Urine pH 5.0 Urine Specific [place] 1.013 Urine Ketones NEGATIVE Urine Nitrite NEGATIVE Urine Bilirubin NEGATIVE Urine Urobilinogen NEGATIVE Urine Leukocyte Esterase NEGATIVE Urine Microscopic RBC 12 H Urine Microscopic WBC 13 H Urine Bacteria FEW A Urine Hyaline Casts FEW A Urine Mucus FEW A Urine Hemoglobin 2+ H Urine Glucose 3+ H Urine Total Protein 2+ H Test 07/19/17 08:03 07/19/17 08:50 07/19/17 11:36 07/19/17 12:05 Bedside Glucose 228 H 213 168 Creatine Kinase 239 H Creatine Kinase Index 1.6 Creatinine Kinase MB (Mass) 3.84 H Troponin I 0.406 *H Medications Medications Current Medications Nitroglycerin/ Dextrose (Nitroglycerin 50 Mg/D5W (Pmx)) 250 ml @ 0 mls/hr TITRATE IV Last administered on 07/19/17 00:20; Admin Dose 5 MLS/HR; Start at 00:30 Ondansetron HCl (Zofran Inj) 4 mg Q6H PRN IV NAUSEA AND/OR VOMITING; Start at 01:30 Acetaminophen (Tylenol Liquid) 650 mg Q6H PRN PO PAIN LEVEL 1-3 OR FEVER Last administered on 07/19/17 12:47; Admin Dose 650 MG; Start 07/19/17 at 01:30 Morphine Sulfate (morphine) 2 mg Q4H PRN IV PAIN LEVEL 7-10; Start 07/19/17 at 01:30 Lorazepam (Ativan) 1 mg Q2H PRN IV ANXIETY Last administered on 07/19/17 12:17 ; Admin Dose 1 MG; Start 07/19/17 at 01:30 Famotidine (Pepcid Iv) 20 mg Q12 IV Last administered on 07/19/17 08:04; Admin Dose 20 MG; Start 07/19/17 at 09:00 Heparin Sodium (Porcine) (Heparin (5000 Units/0.5 ml)) 5,000 unit Q12 SC Last administered on 07/19/17 08:09; Admin Dose 5,000 UNIT; Start 07/19/17 at 09:00 Diagnostic Test (Pha) (Accu-Chek) 1 ea 02 XX Last administered on 07/19/17 02: 36; Admin Dose 1 EA; Start 07/19/17 at 02:00 Insulin Glargine (Lantus) 15 unit DAILY@08 SC Last administered on 07/19/17 09 :01; Admin Dose 15 UNIT; Start 07/19/17 at 08:00 Furosemide (Lasix) 40 mg DAILY IV Last administered on 07/19/17 08:04; Admin Dose 40 MG; Start 07/19/17 at 09:00 Aspirin (Aspirin) 325 mg DAILY PO Last administered on 07/19/17 08:04; Admin Dose 325 MG; Start 07/19/17 at 09:00 Atorvastatin Calcium (Lipitor) 20 mg DAILY PO Last administered on 07/19/17 08 :04; Admin Dose 20 MG; Start 07/19/17 at 09:00 Carvedilol (Coreg) 3.125 mg BID PO Last administered on 07/19/17 08:05; Admin Dose 3.125 MG; Start 07/19/17 at 09:00 Clopidogrel Bisulfate (plaVIX) 75 mg DAILY PO Last administered on 07/19/17 08 :04; Admin Dose 75 MG; Start 07/19/17 at 09:00 Valsartan (Diovan) 320 mg DAILY PO ; Start 07/19/17 at 09:00; Status Future Hold Miscellaneous Information 1 ea NOTE XX ; Start 07/19/17 at 02:00 Glucose (Glutose) 15 gm Q15M PRN PO DECREASED GLUCOSE; Start 07/19/17 at 02:00 Glucose (Glutose) 22.5 gm Q15M PRN PO DECREASED GLUCOSE; Start 07/19/17 at 02: 00 Dextrose (D50w Syringe) 25 ml Q15M PRN IV DECREASED GLUCOSE; Start 07/19/17 at 02:00 Dextrose (D50w Syringe) 50 ml Q15M PRN IV DECREASED GLUCOSE; Start 07/19/17 at 02:00 Glucagon (Glucagen) 1 mg Q15M PRN IM DECREASED GLUCOSE; Start 07/19/17 at 02:00 Glucose (Glutose) 15 gm Q15M PRN BUCCAL DECREASED GLUCOSE; Start 07/19/17 at 02 :00 Insulin Aspart (Adult SC Insulin - Mild Algorithm)... Q4 SC Last administered on 07/19/17 12:08; Admin Dose 1 UNIT; Start 07/19/17 at 05:00 Cefepime HCl (Maxipime 2gm/50 ml (Pmx)) 50 ml @ 100 mls/hr Q12 IVPB Last administered on 07/19/17 12:04; Admin Dose 100 MLS/HR; Start 07/19/17 at 10:00 Enoxaparin Sodium 95 mg 95 mg Q12 SC Last administered on 07/19/17 10:07; Admin Dose 95 MG; Start 07/19/17 at 09:30 Vancomycin HCl 250 ml @ 125 mls/hr Q2H IVPB Last administered on 07/19/17 13: 11; Admin Dose 125 MLS/HR; Start 07/19/17 at 11:00; Stop 07/19/17 at 14:59 Vancomycin HCl (Vancocin) 250 ml @ 125 mls/hr Q12H IVPB ; Start 07/20/17 at 00: 00 DAVID LANIER MD Jul 19, 2017 14:40
--- NOTE | 2017-07-19 16:07 | RADRPT ---
PROCEDURE: XR Chest. CLINICAL INDICATION: Check line placement. TECHNIQUE: Single frontal view. COMPARISON: 07/19/2017. 1347 hours. FINDINGS: The endotracheal tube remains in satisfactory position. There is a new nasogastric tube with the tip in the stomach. There is extensive bilateral pulmonary air space disease, unchanged. The heart size is normal. There is no pleural effusion. There is no pneumothorax. IMPRESSION: 1. Nasogastric tube in satisfactory position. 2. No other change from the prior study done earlier the same day. RPTAT: QQ .Billy Maciel MD, MD Date Time Electronically viewed and signed by .Billy Maciel MD, MD on 07/19/2017 16:07 .R/
--- NOTE | 2017-07-19 17:05 | CONS ---
Date/Time of Note Date/Time of Note DATE: 07/19/17 TIME: 16:55 Assessment/Plan Assessment/Plan Chief Complaint/Hosp Course Assessment: Acute on chronic systolic heart failure Ischemic cardiomyopathy, previously reported LVEF 30% NSTEMI - likely type 2 Coronary artery disease - multiple coronary stents, most recently in 2012 Acute hypoxic and hypercarbic respiratory failure - intubated, per pulmonology Possible chronic obstructive pulmonary disease - former smoker Diabetes mellitus - per primary team Reported medication noncompliance Recommendations: -obtain transthoracic echocardiogram -Lasix 40mg IV BID -hold carvedilol and valsartan due to borderline blood pressures and to allow for diuresis, resume with closer to euvolemia -continue aspirin at 81mg daily and clopidogrel 75mg daily -continue atorvastatin 20mg daily Problems: Consultation Date/Type/Reason Admit Date/Time Jul 19, 2017 at 00:28 Type of Consultation: Cardiology Reason for Consultation congestive heart failure, elevated troponin Hx of Present Illness The patient is a 62 year-old male with ischemic cardiomyopathy and reported medication noncompliance who presented with shortness of breath. His chest x- ray showed pulmonary edema and BNP was elevated at 2290, consistent with decompensated heart failure. Troponin was mildly elevated up to 0.406. He was noted to be in hypoxic and hypercarbic respiratory failure, and has been intubated and placed on mechanical ventilation. Unable to obtain review of systems, patient is intubated. Past Medical History Chronic systolic heart failure Ischemic cardiomyopathy, previously reported LVEF 30% Coronary artery disease - multiple coronary stents, most recently in 2012 Diabetes mellitus Family History Significant Family History: no pertinent family hx Social History Smoking Status: Former smoker Exam/Review of Systems Vital Signs Vitals Vital Signs Date Time Temp Pulse Resp B/P Pulse Ox O2 Delivery O2 Flow Rate FiO2 07/19/17 16:30 72 20 101/53 97 Mechanical Ventilator 07/19/17 16:00 60 07/19/17 14:30 100.3 07/19/17 02:30 15.0 Intake and Output 07/18/17 07/18/17 07/19/17 15:00 23:00 07:00 Intake Total 149.8 ml Output Total 1200 ml Balance -1050.2 ml Exam Constitutional: other (intubated), No alert Psych: No nl mood/affect Head: atraumatic, normocephalic Eyes: nl conjunctiva, nl lids ENMT: intubated Respiratory: crackles/rales, diminished breath sounds Cardiovascular: regular rate and rhythm Gastrointestinal: non-tender, soft Musculoskeletal: nl extremities to inspection Extremities: No clubbing, No cyanosis, No edema Neurological: No nl mental status, No nl speech Results Result Diagram: 07/19/17 0451 07/19/17 0451 Results 24 hrs Laboratory Tests Test 07/18/17 22:32 07/19/17 00:37 07/19/17 02:17 07/19/17 04:10 White Blood Count 15.2 H Red Blood Count 4.89 Hemoglobin 14.9 Hematocrit 45.0 Mean Corpuscular Volume 92.0 Mean Corpuscular Hemoglobin 30.5 Mean Corpuscular Hemoglobin Concent 33.1 Red Cell Distribution Width 13.0 Platelet Count 205 Mean Platelet Volume 12.6 H Neutrophils % 74.1 Lymphocytes % 17.8 Monocytes % 6.4 Eosinophils % 0.8 Basophils % 0.4 Nucleated Red Blood Cells % 0.0 Neutrophils # 11.3 H Lymphocytes # 2.7 Monocytes # 1.0 H Eosinophils # 0.1 Basophils # 0.1 Nucleated Red Blood Cells # 0.0 Prothrombin Time 13.3 Prothrombin Time Ratio 1.0 INR International Normalized Ratio 1.01 Activated Partial Thromboplast Time 28.4 Sodium Level 138 Potassium Level 4.2 Chloride Level 104 Carbon Dioxide Level 25 Anion Gap 13 Blood Urea Nitrogen 13 Creatinine 0.78 Glucose Level 270 H Calcium Level 9.0 Troponin I < 0.012 B-Type Natriuretic Peptide 2290 H Blood Gas Specimen Source Blood arterial Arterial Blood Date Drawn 07/19/2017 1:28:11 AM Arterial Blood pH (Temp corrected) 7.243 *L Arterial Blood pCO2 (Temp correct) 59.3 H Arterial Blood pO2 (Temp corrected) 67.4 L Arterial Blood HCO3 25.0 Arterial Blood Base Excess -3.9 L Arterial Blood Oxygen Saturation 90.9 L Jean Test ACCEPTAB Arterial Blood Gas Puncture Site Right Radial Arterial Blood Carboxyhemoglobin 0.4 Arterial Blood Methemoglobin 0.3 Blood Gas A-a O2 Differential 586.3 H Oxyhemoglobin Percent 90.3 L Total Hemoglobin 19.2 H Blood Gas Temperature 37.0 Blood Gas Respiration Rate 20.0 Blood Gas Actual Respiration Rate 20 Blood Gas Modality VENT - AC FiO2 100.0 Blood Gas Tidal Volume 550.0 Blood Gas Low PEEP Setting 5.0 Blood Gas Inspiratory Pressure 38.0 Blood Gas Critical Value Read Back Chong WHITING DO Blood Gas Notified Whom KM Blood Gas Notified Time 07/19/2017 1:38:16 AM Bedside Glucose 320 H 293 H Test 07/19/17 04:51 07/19/17 05:00 07/19/17 06:16 07/19/17 06:30 White Blood Count 16.3 H Red Blood Count 5.16 Hemoglobin 15.9 Hematocrit 47.9 Mean Corpuscular Volume 92.8 Mean Corpuscular Hemoglobin 30.8 Mean Corpuscular Hemoglobin Concent 33.2 Red Cell Distribution Width 12.7 Platelet Count 184 Mean Platelet Volume 12.3 H Neutrophils % 78.5 H Lymphocytes % 11.9 L Monocytes % 8.8 Eosinophils % 0.1 Basophils % 0.3 Nucleated Red Blood Cells % 0.0 Neutrophils # 12.8 H Lymphocytes # 1.9 Monocytes # 1.4 H Eosinophils # 0.0 Basophils # 0.1 Nucleated Red Blood Cells # 0.0 Sodium Level 137 Potassium Level 5.4 H Chloride Level 103 Carbon Dioxide Level 27 Anion Gap 12 Blood Urea Nitrogen 18 Creatinine 1.09 Glucose Level 290 H Hemoglobin A1c 10.9 H Calcium Level 9.0 Total Bilirubin 0.7 Direct Bilirubin 0.00 Indirect Bilirubin 0.7 Aspartate Amino Transf (AST/SGOT) 25 Alanine Aminotransferase (ALT/SGPT) 26 Alkaline Phosphatase 68 Creatine Kinase 305 H Creatine Kinase Index 2.0 Creatinine Kinase MB (Mass) 6.16 H Troponin I 0.220 *H Total Protein 6.2 Albumin 3.4 Globulin 2.80 Albumin/Globulin Ratio 1.21 Blood Gas Specimen Source Blood arterial Arterial Blood Date Drawn 07/19/2017 5:11:50 AM Arterial Blood pH (Temp corrected) 7.395 Arterial Blood pCO2 (Temp correct) 39.2 Arterial Blood pO2 (Temp corrected) 88.7 Arterial Blood HCO3 23.5 Arterial Blood Base Excess -1.1 Arterial Blood Oxygen Saturation 97.1 Jean Test ACCEPTAB Arterial Blood Gas Puncture Site Right Radial Arterial Blood Carboxyhemoglobin 1.4 Arterial Blood Methemoglobin 0.2 Blood Gas A-a O2 Differential 585.1 H Oxyhemoglobin Percent 95.5 Total Hemoglobin 16.6 Blood Gas Temperature 37.0 Blood Gas Respiration Rate 20.0 Blood Gas Actual Respiration Rate 24 Blood Gas Modality VENT - AC FiO2 100.0 Blood Gas Tidal Volume 550.0 Blood Gas Low PEEP Setting 5.0 Blood Gas Inspiratory Pressure 25.0 Blood Gas Notified Whom RTR Blood Gas Notified Time 07/19/2017 5:34:58 AM Bedside Glucose 273 H Urine Color YELLOW Urine Clarity SLIGHTLY CLOUDY A Urine pH 5.0 Urine Specific [place] 1.013 Urine Ketones NEGATIVE Urine Nitrite NEGATIVE Urine Bilirubin NEGATIVE Urine Urobilinogen NEGATIVE Urine Leukocyte Esterase NEGATIVE Urine Microscopic RBC 12 H Urine Microscopic WBC 13 H Urine Bacteria FEW A Urine Hyaline Casts FEW A Urine Mucus FEW A Urine Hemoglobin 2+ H Urine Glucose 3+ H Urine Total Protein 2+ H Test 07/19/17 08:03 07/19/17 08:50 07/19/17 11:36 07/19/17 12:05 Bedside Glucose 228 H 213 168 Creatine Kinase 239 H Creatine Kinase Index 1.6 Creatinine Kinase MB (Mass) 3.84 H Troponin I 0.406 *H Test 07/19/17 16:20 Bedside Glucose 151 Medications Medications Current Medications Nitroglycerin/ Dextrose (Nitroglycerin 50 Mg/D5W (Pmx)) 250 ml @ 0 mls/hr TITRATE IV Last administered on 07/19/17 00:20; Admin Dose 5 MLS/HR; Start at 00:30 Ondansetron HCl (Zofran Inj) 4 mg Q6H PRN IV NAUSEA AND/OR VOMITING; Start at 01:30 Acetaminophen (Tylenol Liquid) 650 mg Q6H PRN PO PAIN LEVEL 1-3 OR FEVER Last administered on 07/19/17 12:47; Admin Dose 650 MG; Start 07/19/17 at 01:30 Morphine Sulfate (morphine) 2 mg Q4H PRN IV PAIN LEVEL 7-10; Start 07/19/17 at 01:30 Lorazepam (Ativan) 1 mg Q2H PRN IV ANXIETY Last administered on 07/19/17 12:17 ; Admin Dose 1 MG; Start 07/19/17 at 01:30 Famotidine (Pepcid Iv) 20 mg Q12 IV Last administered on 07/19/17 08:04; Admin Dose 20 MG; Start 07/19/17 at 09:00 Heparin Sodium (Porcine) (Heparin (5000 Units/0.5 ml)) 5,000 unit Q12 SC Last administered on 07/19/17 08:09; Admin Dose 5,000 UNIT; Start 07/19/17 at 09:00 Diagnostic Test (Pha) (Accu-Chek) 1 ea 02 XX Last administered on 07/19/17 02: 36; Admin Dose 1 EA; Start 07/19/17 at 02:00 Insulin Glargine (Lantus) 15 unit DAILY@08 SC Last administered on 07/19/17 09 :01; Admin Dose 15 UNIT; Start 07/19/17 at 08:00 Furosemide (Lasix) 40 mg DAILY IV Last administered on 07/19/17 08:04; Admin Dose 40 MG; Start 07/19/17 at 09:00 Aspirin (Aspirin) 325 mg DAILY PO Last administered on 07/19/17 08:04; Admin Dose 325 MG; Start 07/19/17 at 09:00 Atorvastatin Calcium (Lipitor) 20 mg DAILY PO Last administered on 07/19/17 08 :04; Admin Dose 20 MG; Start 07/19/17 at 09:00 Carvedilol (Coreg) 3.125 mg BID PO Last administered on 07/19/17 08:05; Admin Dose 3.125 MG; Start 07/19/17 at 09:00 Clopidogrel Bisulfate (plaVIX) 75 mg DAILY PO Last administered on 07/19/17 08 :04; Admin Dose 75 MG; Start 07/19/17 at 09:00 Valsartan (Diovan) 320 mg DAILY PO ; Start 07/19/17 at 09:00; Status Future Hold Miscellaneous Information 1 ea NOTE XX ; Start 07/19/17 at 02:00 Glucose (Glutose) 15 gm Q15M PRN PO DECREASED GLUCOSE; Start 07/19/17 at 02:00 Glucose (Glutose) 22.5 gm Q15M PRN PO DECREASED GLUCOSE; Start 07/19/17 at 02: 00 Dextrose (D50w Syringe) 25 ml Q15M PRN IV DECREASED GLUCOSE; Start 07/19/17 at 02:00 Dextrose (D50w Syringe) 50 ml Q15M PRN IV DECREASED GLUCOSE; Start 07/19/17 at 02:00 Glucagon (Glucagen) 1 mg Q15M PRN IM DECREASED GLUCOSE; Start 07/19/17 at 02:00 Glucose (Glutose) 15 gm Q15M PRN BUCCAL DECREASED GLUCOSE; Start 07/19/17 at 02 :00 Insulin Aspart (Adult SC Insulin - Mild Algorithm)... Q4 SC Last administered on 07/19/17 16:21; Admin Dose 1 UNIT; Start 07/19/17 at 05:00 Cefepime HCl (Maxipime 2gm/50 ml (Pmx)) 50 ml @ 100 mls/hr Q12 IVPB Last administered on 07/19/17 12:04; Admin Dose 100 MLS/HR; Start 07/19/17 at 10:00 Enoxaparin Sodium 95 mg 95 mg Q12 SC Last administered on 07/19/17 10:07; Admin Dose 95 MG; Start 07/19/17 at 09:30 Vancomycin HCl (Vancocin) 250 ml @ 125 mls/hr Q12H IVPB ; Start 07/20/17 at 00: 00 LEONOR VELASQUEZ MD Jul 19, 2017 17:05
[2017-07-19] MEDS: FUROSEMIDE 40 MG INJ IV SCH (17:57)
[2017-07-20] VITALS (33 sets, daily range): BP systolic 103–151; BP diastolic 58–106; PULSE 76–85; RESP 14–25
[2017-07-20] MEDS ORDERED: VANCOMYCIN 1 GM in NS 250 ML IVPB SCH
[2017-07-20] MEDS: LORAZEPAM 2 MG INJ IV PRN ×4 (00:48→21:24)
[2017-07-20] MEDS: Insulin NOVOLOG SS MILD Algorithm (NPO/TPN/ENTERAL FEEDS) SC SCH ×6 (01:02→20:37)
[2017-07-20] MEDS: ACCU-CHEK XX SCH (02:00)
[2017-07-20] MEDS: PROPOFOL 100 ML IV SCH ×4 (04:52→21:58)
[2017-07-20 05:09] LABS: BASOPHILS % 0.4 % (0.0-2.0); EOSINOPHILS # 0.1 10^3/ul (0.0-0.5); EOSINOPHILS % 0.4 % (0.0-7.0); HEMATOCRIT 42.4 % (42.0-52.0); HEMOGLOBIN 14.2 g/dl (14.0-18.0); LYMPHOCYTES # 2.5 10^3/ul (0.8-2.9); LYMPHOCYTES % 21.7 % (15.0-51.0); MEAN CORPUSCULAR HEMOGLOBIN 31.1 pg (29.0-33.0); MEAN CORPUSCULAR HGB CONC 33.5 g/dl (32.0-37.0); MEAN CORPUSCULAR VOLUME 92.8 fl (82.0-101.0); MEAN PLATELET VOLUME 12.4 fl (7.4-10.4); MONOCYTE # 1.1 10^3/ul (0.3-0.9); MONOCYTES % 9.3 % (0.0-11.0); NEUTROPHIL # 7.7 10^3/ul (1.6-7.5); NEUTROPHILS % 67.8 % (39.0-77.0); PLATELET COUNT 158 10^3/UL (140-415); RED BLOOD COUNT 4.57 10^6/ul (4.70-6.10); RED CELL DISTRIBUTION WIDTH 13.1 % (11.5-14.5); WHITE BLOOD COUNT 11.4 10^3/ul (4.8-10.8)
[2017-07-20] MEDS: FUROSEMIDE 40 MG INJ IV SCH ×2 (05:16→17:34)
[2017-07-20 05:18] LABS: AADO2 Arterial 251.1 mmHg (7.0-24.0); Allen Test ACCEPTAB; Arterial Base Excess 3.3 mmol/L (-3.0-3); Arterial COHb 0.5 % (0.0-3.0); Arterial HCO3 26.7 mmol/L (22.0-26.0); Arterial MetHb 0.2 % (0.0-1.5); Arterial Total Hemglobin 15.2 g/dl (12.0-18.0); MODE VENT - AC
[2017-07-20 05:33] LABS: MAGNESIUM 1.9 mg/dl (1.7-2.5); PHOSPHORUS 3.2 mg/dl (2.5-4.9)
[2017-07-20 05:35] LABS: CALCIUM 8.4 mg/dl (8.4-10.2); CREATININE 0.86 mg/dl (0.61-1.24); POTASSIUM 3.3 mmol/L (3.5-5.1)
--- NOTE | 2017-07-20 07:33 | RADRPT ---
PROCEDURE: XR Chest. CLINICAL INDICATION: Shortness of breath. TECHNIQUE: Single frontal view. COMPARISON: 07/19/2017. FINDINGS: The endotracheal tube and nasogastric tube remain in satisfactory position. Consent bilateral pulmon [place] air space disease is slightly improved. The heart size is normal. There is no pleural effusion. There is no pneumothorax. IMPRESSION: 1. Slightly improved appearance of the lungs. RPTAT: QQ .Billy Maciel MD, MD Date Time Electronically viewed and signed by .Billy Maciel MD, MD on 07/20/2017 07:32 .R/
[2017-07-20] MEDS: HEPARIN 5,000 UNIT/0.5 ML VIAL SC SCH (09:00)
--- NOTE | 2017-07-20 09:17 | CONS ---
Date/Time of Note Date/Time of Note DATE: 07/20/17 TIME: 09:14 Assessment/Plan Assessment/Plan Additional Assessment/Plan Chest x-ray was reviewed from today which is showing significant improvement in bilateral pulmonary edema. Endotracheal tube is at an adequate level. Patient currently on propofol drip at 30 mics per kilogram per minute. Patient is off nitroglycerin drip. Ventilator setting; AC of 20, tidal volume 550, PEEP of 5, 60% FiO2. Assessment and recommendations; 1. Patient admitted with decompensated CHF with significant radiological improvement. 2. Prior history of CAD. 3. History of diabetes and hypertension. 4. Possibly superimposed pneumonia. 5. Mild thrombocytopenia. Continue current supportive care. Continue invasive mechanical ventilation for another 24 hours. Decrease FiO2 to keep O2 saturation around 94%. Follow-up chest x-ray in 24 hours. 35 minutes of critical care time was spent evaluating the patient. Consultation Date/Type/Reason Admit Date/Time Jul 19, 2017 at 00:28 Initial Consult Date Type of Consultation: Pulmonary/critical care 24 HR Interval Summary Free Text/Dictation Patient's condition remains critical. Still requiring full ventilator support. Patient however has remained hemodynamically stable. General exam; elderly male, orally intubated, sedated, currently in no distress. Exam/Review of Systems Vital Signs Vitals Vital Signs Date Time Temp Pulse Resp B/P Pulse Ox O2 Delivery O2 Flow Rate FiO2 07/20/17 08:00 78 07/20/17 07:29 20 100 60 07/19/17 23:30 117/64 Mechanical Ventilator 07/19/17 20:00 100.5 07/19/17 02:30 15.0 Intake and Output 07/19/17 07/19/17 07/20/17 15:00 23:00 07:00 Intake Total 932 ml 194 ml 394 ml Output Total 1105 ml 1515 ml 295 ml Balance -173 ml -1321 ml 99 ml Exam HEENT exam; supple neck, positive JVD. No lymphadenopathy. Midline trachea. No thyromegaly. Pupils are midsize and reactive to light. Patient is edentulous. Chest exam; diminished breath sounds bilaterally. No added sound. S1-S2 audible, no murmurs. Regular rhythm. Abdomen exam; soft, nondistended. No organomegaly. Bowel sounds audible. Extremity exam; no peripheral edema. Pulses 1+ bilaterally. 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 Results Result Diagram: 07/20/17 0400 07/20/17 0400 Results 24 hrs Laboratory Tests Test 07/19/17 11:36 07/19/17 12:05 07/19/17 16:20 07/19/17 20:30 Creatine Kinase 239 H Creatine Kinase Index 1.6 Creatinine Kinase MB (Mass) 3.84 H Troponin I 0.406 *H Bedside Glucose 168 151 184 Test 07/20/17 00:58 07/20/17 04:00 07/20/17 04:54 07/20/17 05:00 Bedside Glucose 173 196 White Blood Count 11.4 #H Red Blood Count 4.57 L Hemoglobin 14.2 Hematocrit 42.4 Mean Corpuscular Volume 92.8 Mean Corpuscular Hemoglobin 31.1 Mean Corpuscular Hemoglobin Concent 33.5 Red Cell Distribution Width 13.1 Platelet Count 158 Mean Platelet Volume 12.4 H Neutrophils % 67.8 Lymphocytes % 21.7 Monocytes % 9.3 Eosinophils % 0.4 Basophils % 0.4 Nucleated Red Blood Cells % 0.0 Neutrophils # 7.7 H Lymphocytes # 2.5 Monocytes # 1.1 H Eosinophils # 0.1 Basophils # 0.0 Nucleated Red Blood Cells # 0.0 Sodium Level 138 Potassium Level 3.3 #L Chloride Level 105 Carbon Dioxide Level 29 Anion Gap 7 L Blood Urea Nitrogen 23 H Creatinine 0.86 Glucose Level 193 Calcium Level 8.4 Phosphorus Level 3.2 Magnesium Level 1.9 Blood Gas Specimen Source Blood arterial Arterial Blood Date Drawn 07/20/2017 4:54:05 AM Arterial Blood pH (Temp corrected) 7.479 H Arterial Blood pCO2 (Temp correct) 36.8 Arterial Blood pO2 (Temp corrected) 64.0 L Arterial Blood HCO3 26.7 H Arterial Blood Base Excess 3.3 H Arterial Blood Oxygen Saturation 93.7 L Jean Test ACCEPTAB Arterial Blood Gas Puncture Site Right Radial Arterial Blood Carboxyhemoglobin 0.5 Arterial Blood Methemoglobin 0.2 Blood Gas A-a O2 Differential 251.1 H Oxyhemoglobin Percent 93.0 Total Hemoglobin 15.2 Blood Gas Temperature 37.0 Blood Gas Respiration Rate 20.0 Blood Gas Actual Respiration Rate 24 Blood Gas Modality VENT - AC FiO2 50.0 Blood Gas Tidal Volume 550.0 Blood Gas Low PEEP Setting 5.0 Blood Gas Inspiratory Pressure 24.0 Blood Gas Notified Whom RTR Blood Gas Notified Time 07/20/2017 5:18:15 AM Medications Medications Current Medications Nitroglycerin/ Dextrose (Nitroglycerin 50 Mg/D5W (Pmx)) 250 ml @ 0 mls/hr TITRATE IV Last administered on 07/19/17 00:20; Admin Dose 5 MLS/HR; Start at 00:30 Ondansetron HCl (Zofran Inj) 4 mg Q6H PRN IV NAUSEA AND/OR VOMITING; Start at 01:30 Acetaminophen (Tylenol Liquid) 650 mg Q6H PRN PO PAIN LEVEL 1-3 OR FEVER Last administered on 07/19/17 18:53; Admin Dose 650 MG; Start 07/19/17 at 01:30 Morphine Sulfate (morphine) 2 mg Q4H PRN IV PAIN LEVEL 7-10; Start 07/19/17 at 01:30 Lorazepam (Ativan) 1 mg Q2H PRN IV ANXIETY Last administered on 07/20/17 05:15 ; Admin Dose 1 MG; Start 07/19/17 at 01:30 Famotidine (Pepcid Iv) 20 mg Q12 IV Last administered on 07/19/17 20:21; Admin Dose 20 MG; Start 07/19/17 at 09:00 Heparin Sodium (Porcine) (Heparin (5000 Units/0.5 ml)) 5,000 unit Q12 SC Last administered on 07/19/17 20:26; Admin Dose 5,000 UNIT; Start 07/19/17 at 09:00 Diagnostic Test (Pha) (Accu-Chek) 1 ea 02 XX Last administered on 07/19/17 02: 36; Admin Dose 1 EA; Start 07/19/17 at 02:00 Insulin Glargine (Lantus) 15 unit DAILY@08 SC Last administered on 07/19/17 09 :01; Admin Dose 15 UNIT; Start 07/19/17 at 08:00 Atorvastatin Calcium (Lipitor) 20 mg DAILY PO Last administered on 07/19/17 08 :04; Admin Dose 20 MG; Start 07/19/17 at 09:00 Clopidogrel Bisulfate (plaVIX) 75 mg DAILY PO Last administered on 07/19/17 08 :04; Admin Dose 75 MG; Start 07/19/17 at 09:00 Valsartan (Diovan) 320 mg DAILY PO ; Start 07/19/17 at 09:00; Status Future Hold Miscellaneous Information 1 ea NOTE XX ; Start 07/19/17 at 02:00 Glucose (Glutose) 15 gm Q15M PRN PO DECREASED GLUCOSE; Start 07/19/17 at 02:00 Glucose (Glutose) 22.5 gm Q15M PRN PO DECREASED GLUCOSE; Start 07/19/17 at 02: 00 Dextrose (D50w Syringe) 25 ml Q15M PRN IV DECREASED GLUCOSE; Start 07/19/17 at 02:00 Dextrose (D50w Syringe) 50 ml Q15M PRN IV DECREASED GLUCOSE; Start 07/19/17 at 02:00 Glucagon (Glucagen) 1 mg Q15M PRN IM DECREASED GLUCOSE; Start 07/19/17 at 02:00 Glucose (Glutose) 15 gm Q15M PRN BUCCAL DECREASED GLUCOSE; Start 07/19/17 at 02 :00 Insulin Aspart (Adult SC Insulin - Mild Algorithm)... Q4 SC Last administered on 07/20/17 04:56; Admin Dose 2 UNIT; Start 07/19/17 at 05:00 Cefepime HCl (Maxipime 2gm/50 ml (Pmx)) 50 ml @ 100 mls/hr Q12 IVPB Last administered on 07/19/17 20:22; Admin Dose 100 MLS/HR; Start 07/19/17 at 10:00 Enoxaparin Sodium (Lovenox) 95 mg Q12 SC Last administered on 07/19/17 20:27; Admin Dose 95 MG; Start 07/19/17 at 09:30 Aspirin (Aspirin) 81 mg DAILY PO ; Start 07/20/17 at 09:00 EDE DODD Jul 20, 2017 09:17
[2017-07-20] MEDS: CEFEPIME 2GM/50 ML (PMX) 50 ML IVPB SCH ×2 (09:35→20:23)
[2017-07-20] MEDS: FAMOTIDINE 20 MG INJ IV SCH ×2 (09:36→20:23)
[2017-07-20] MEDS: ASPIRIN 81 MG TAB PO SCH (09:36)
[2017-07-20] MEDS: ATORVASTATIN 20 MG TAB PO SCH (09:36)
[2017-07-20] MEDS: INSULIN GLARGINE [LANtus] 3 ML PEN SC SCH (09:50)
[2017-07-20] MEDS: ENOXAPARIN 100 MG/ML SYG SC SCH ×2 (11:54→20:28)
[2017-07-20] MEDS: CLOPIDOGREL 75 MG TAB PO SCH (11:55)
[2017-07-20] MEDS ORDERED: POTASSIUM CHLORIDE (SR) 20 MEQ TAB PO STA (15:17)
--- NOTE | 2017-07-20 15:40 | PN ---
Date/Time of Note Date/Time of Note DATE: 07/20/17 TIME: 15:33 Assessment/Plan VTE Prophylaxis VTE Prophylaxis Intervention: SCD's Lines/Catheters IV Catheter Type (from Nrsg): Peripheral IV Urinary Cath still in place: Yes Reason Cath still needed: other (indicate) (critically ill) Assessment/Plan Assessment/Plan 62-year-old male with chronic systolic HF (EF 30%), CAD sp PCI, HTN, DM presented with SOB most likely acute on chronic systolic HF with concern for possible underlying respiratory infection with resultant NSTEMI 2/2 demand. #acute on chronic CHF -TTE done yesterday, results pending -cont diuresis -extubation for volume overload as per pulm -bb/arb on hold given low BPs and need for diuresis #possible underlying pna -de escalate abx once pt is extubated -procalcitonin ordered though suspect this is a send out lab #NSTEMI likely 2/2 demand -cardiology on consult #DM2: insulin + SSI GI prophx while intubated Pt remains in the ICU as per pulm not yet ready to be extubated critical care time: 30 minutes Subjective 24 Hr Interval Summary Free Text/Dictation not yet ready for extubation per pulm Exam/Review of Systems Vital Signs Vitals Vital Signs Date Time Temp Pulse Resp B/P Pulse Ox O2 Delivery O2 Flow Rate FiO2 07/20/17 13:16 79 20 100 55 07/20/17 12:00 98.5 150/76 Mechanical Ventilator 07/19/17 02:30 15.0 Intake and Output 07/19/17 07/19/17 07/20/17 15:00 23:00 07:00 Intake Total 932 ml 194 ml 394 ml Output Total 1105 ml 1515 ml 295 ml Balance -173 ml -1321 ml 99 ml Exam nad, moving arms decreased breath sounds in dependent cheek no mrg abd soft no rashes Results Result Diagram: 07/20/17 0400 07/20/17 0400 Results 24 hrs Laboratory Tests Test 07/19/17 16:20 07/19/17 20:30 07/20/17 00:58 07/20/17 04:00 Bedside Glucose 151 184 173 White Blood Count 11.4 #H Red Blood Count 4.57 L Hemoglobin 14.2 Hematocrit 42.4 Mean Corpuscular Volume 92.8 Mean Corpuscular Hemoglobin 31.1 Mean Corpuscular Hemoglobin Concent 33.5 Red Cell Distribution Width 13.1 Platelet Count 158 Mean Platelet Volume 12.4 H Neutrophils % 67.8 Lymphocytes % 21.7 Monocytes % 9.3 Eosinophils % 0.4 Basophils % 0.4 Nucleated Red Blood Cells % 0.0 Neutrophils # 7.7 H Lymphocytes # 2.5 Monocytes # 1.1 H Eosinophils # 0.1 Basophils # 0.0 Nucleated Red Blood Cells # 0.0 Sodium Level 138 Potassium Level 3.3 #L Chloride Level 105 Carbon Dioxide Level 29 Anion Gap 7 L Blood Urea Nitrogen 23 H Creatinine 0.86 Glucose Level 193 Calcium Level 8.4 Phosphorus Level 3.2 Magnesium Level 1.9 Test 07/20/17 04:54 07/20/17 05:00 07/20/17 09:48 07/20/17 12:53 Bedside Glucose 196 179 190 Blood Gas Specimen Source Blood arterial Arterial Blood Date Drawn 07/20/2017 4:54:05 AM Arterial Blood pH (Temp corrected) 7.479 H Arterial Blood pCO2 (Temp correct) 36.8 Arterial Blood pO2 (Temp corrected) 64.0 L Arterial Blood HCO3 26.7 H Arterial Blood Base Excess 3.3 H Arterial Blood Oxygen Saturation 93.7 L Jean Test ACCEPTAB Arterial Blood Gas Puncture Site Right Radial Arterial Blood Carboxyhemoglobin 0.5 Arterial Blood Methemoglobin 0.2 Blood Gas A-a O2 Differential 251.1 H Oxyhemoglobin Percent 93.0 Total Hemoglobin 15.2 Blood Gas Temperature 37.0 Blood Gas Respiration Rate 20.0 Blood Gas Actual Respiration Rate 24 Blood Gas Modality VENT - AC FiO2 50.0 Blood Gas Tidal Volume 550.0 Blood Gas Low PEEP Setting 5.0 Blood Gas Inspiratory Pressure 24.0 Blood Gas Notified Whom RTR Blood Gas Notified Time 07/20/2017 5:18:15 AM Medications Medications Current Medications Ondansetron HCl (Zofran Inj) 4 mg Q6H PRN IV NAUSEA AND/OR VOMITING; Start at 01:30 Acetaminophen (Tylenol Liquid) 650 mg Q6H PRN PO PAIN LEVEL 1-3 OR FEVER Last administered on 07/19/17t 18:53; Admin Dose 650 MG; Start 07/19/17 at 01:30 Morphine Sulfate (morphine) 2 mg Q4H PRN IV PAIN LEVEL 7-10; Start 07/19/17 at 01:30 Lorazepam (Ativan) 1 mg Q2H PRN IV ANXIETY Last administered on 07/20/17 11:50 ; Admin Dose 1 MG; Start 07/19/17 at 01:30 Famotidine (Pepcid Iv) 20 mg Q12 IV Last administered on 07/20/17 09:36; Admin Dose 20 MG; Start 07/19/17 at 09:00 Heparin Sodium (Porcine) (Heparin (5000 Units/0.5 ml)) 5,000 unit Q12 SC Last administered on 07/19/17 20:26; Admin Dose 5,000 UNIT; Start 07/19/17 at 09:00 ; Status Future Hold Diagnostic Test (Pha) (Accu-Chek) 1 ea 02 XX Last administered on 07/19/17 02: 36; Admin Dose 1 EA; Start 07/19/17 at 02:00 Insulin Glargine (Lantus) 15 unit DAILY@08 SC Last administered on 07/20/17 09 :50; Admin Dose 15 UNIT; Start 07/19/17 at 08:00 Atorvastatin Calcium (Lipitor) 20 mg DAILY PO Last administered on 07/20/17 09 :36; Admin Dose 20 MG; Start 07/19/17 at 09:00 Clopidogrel Bisulfate (plaVIX) 75 mg DAILY PO Last administered on 07/20/17 11 :55; Admin Dose 75 MG; Start 07/19/17 at 09:00 Valsartan (Diovan) 320 mg DAILY PO ; Start 07/19/17 at 09:00; Status Future Hold Miscellaneous Information 1 ea NOTE XX ; Start 07/19/17 at 02:00 Glucose (Glutose) 15 gm Q15M PRN PO DECREASED GLUCOSE; Start 07/19/17 at 02:00 Glucose (Glutose) 22.5 gm Q15M PRN PO DECREASED GLUCOSE; Start 07/19/17 at 02: 00 Dextrose (D50w Syringe) 25 ml Q15M PRN IV DECREASED GLUCOSE; Start 07/19/17 at 02:00 Dextrose (D50w Syringe) 50 ml Q15M PRN IV DECREASED GLUCOSE; Start 07/19/17 at 02:00 Glucagon (Glucagen) 1 mg Q15M PRN IM DECREASED GLUCOSE; Start 07/19/17 at 02:00 Glucose (Glutose) 15 gm Q15M PRN BUCCAL DECREASED GLUCOSE; Start 07/19/17 at 02 :00 Insulin Aspart (Adult SC Insulin - Mild Algorithm)... Q4 SC Last administered on 07/20/17 12:59; Admin Dose 2 UNIT; Start 07/19/17 at 05:00 Cefepime HCl (Maxipime 2gm/50 ml (Pmx)) 50 ml @ 100 mls/hr Q12 IVPB Last administered on 07/20/17 09:35; Admin Dose 100 MLS/HR; Start 07/19/17 at 10:00 Enoxaparin Sodium (Lovenox) 95 mg Q12 SC Last administered on 07/20/17 11:54; Admin Dose 95 MG; Start 07/19/17 at 09:30 Aspirin (Aspirin) 81 mg DAILY PO Last administered on 07/20/17 09:36; Admin Dose 81 MG; Start 07/20/17 at 09:00 KAYCEE SWARTZ MD Jul 20, 2017 15:40 KAYCEE SWARTZ MD Jul 20, 2017 15:40
[2017-07-20] MEDS ORDERED: POTASSIUM CHLORIDE 20 MEQ POWDER FOR ORAL SOLN GTB ONE (16:30)
[2017-07-21] VITALS (54 sets, daily range): BP systolic 92–212; BP diastolic 40–116; PULSE 72–103; RESP 5–29
[2017-07-21] MEDS: Insulin NOVOLOG SS MILD Algorithm (NPO/TPN/ENTERAL FEEDS) SC SCH ×6 (01:19→21:43)
[2017-07-21] MEDS: ACCU-CHEK XX SCH (01:20)
[2017-07-21] MEDS: PROPOFOL 100 ML IV SCH ×6 (01:25→20:16)
[2017-07-21] MEDS: LORAZEPAM 2 MG INJ IV PRN ×3 (04:32→13:47)
[2017-07-21] MEDS: FUROSEMIDE 40 MG INJ IV SCH ×2 (05:22→18:18)
[2017-07-21 05:29] LABS: BASOPHILS % 0.4 % (0.0-2.0); EOSINOPHILS % 0.4 % (0.0-7.0); HEMATOCRIT 44.2 % (42.0-52.0); HEMOGLOBIN 14.6 g/dl (14.0-18.0); LYMPHOCYTES # 2.4 10^3/ul (0.8-2.9); LYMPHOCYTES % 23.8 % (15.0-51.0); MEAN CORPUSCULAR HEMOGLOBIN 31.6 pg (29.0-33.0); MEAN CORPUSCULAR VOLUME 95.7 fl (82.0-101.0); MEAN PLATELET VOLUME 12.1 fl (7.4-10.4); MONOCYTE # 0.9 10^3/ul (0.3-0.9); MONOCYTES % 9.2 % (0.0-11.0); NEUTROPHIL # 6.5 10^3/ul (1.6-7.5); PLATELET COUNT 155 10^3/UL (140-415); RED BLOOD COUNT 4.62 10^6/ul (4.70-6.10); WHITE BLOOD COUNT 9.9 10^3/ul (4.8-10.8)
[2017-07-21 06:24] LABS: CALCIUM 8.9 mg/dl (8.4-10.2); CREATININE 0.82 mg/dl (0.61-1.24); POTASSIUM 3.3 mmol/L (3.5-5.1)
[2017-07-21] MEDS ORDERED: POTASSIUM CHLORIDE 250 ML ONE (07:48)
[2017-07-21] MEDS: POTASSIUM CHLORIDE 250 ML IVPB SCH ×2 (08:09→12:24)
[2017-07-21] MEDS: CEFEPIME 2GM/50 ML (PMX) 50 ML IVPB SCH (08:14)
[2017-07-21] MEDS: ATORVASTATIN 20 MG TAB PO SCH (08:15)
[2017-07-21] MEDS: CLOPIDOGREL 75 MG TAB PO SCH (08:15)
[2017-07-21] MEDS: ASPIRIN 81 MG TAB PO SCH (08:15)
[2017-07-21] MEDS: ENOXAPARIN 100 MG/ML SYG SC SCH ×2 (08:27→21:35)
[2017-07-21] MEDS: INSULIN GLARGINE [LANtus] 3 ML PEN SC SCH (08:30)
[2017-07-21] MEDS ORDERED: POTASSIUM CHLORIDE (SR) 20 MEQ TAB PO STA (08:30)
--- NOTE | 2017-07-21 09:09 | RADRPT ---
PROCEDURE: XR Chest 1 View. CLINICAL INDICATION: Shortness of breath TECHNIQUE: AP view of the chest was obtained. COMPARISON: Yesterday FINDINGS: The cardiomediastinal silhouette is within normal limits. Endotracheal and nasogastric tubes are sta ble and appear in grossly appropriate location. Mild central pulmonary vascular congestion and inter stitial prominence is seen in both lungs. Bilateral lower lobe infiltrates have decreased. Mild resi dual and potential small left pleural effusion remain. The osseous structures are unchanged. IMPRESSION: Stable central pulmonary vascular congestion and mild interstitial prominence in both lungs. Interval decrease in bilateral lower lobe infiltrates. Mild residual and potential small left pleura l effusion remain. RPTAT: AA .Joe Cruz MD, Date Time Electronically viewed and signed by .Joe Cruz MD, on 07/21/2017 08:51 .P/
[2017-07-21] MEDS: FAMOTIDINE 20 MG INJ IV SCH ×2 (09:23→21:32)
--- NOTE | 2017-07-21 10:30 | CONS ---
Date/Time of Note Date/Time of Note DATE: 07/21/17 TIME: 10:27 Assessment/Plan Assessment/Plan Additional Assessment/Plan Chest x-ray was reviewed from today which is now essentially clear with marked interval resolution of pulmonary edema. Endotracheal tube is at an adequate level. Ventilator setting; AC of 20, tidal volume 550, PEEP of 5, 40% FiO2. Patient is currently on propofol drip at 30 mics per kilogram per minute. Assessment and recommendations: 1. Patient admitted with respiratory failure due to CHF exacerbation with marked radiological improvement. 2. History of diabetes and hypertension. 3. Improving leukocytosis with possibility of superimposed pneumonia. 4. Mild thrombocytopenia. Stop sedation. Once the patient is off sedation he will be evaluated for possible extubation. I had a detailed discussion patient's brother at bedside and answered all his questions. 35 minutes of critical care time was spent evaluating the patient. Consultation Date/Type/Reason Admit Date/Time Jul 19, 2017 at 00:28 Type of Consultation: Pulmonary/critical care 24 HR Interval Summary Free Text/Dictation Patient's condition remains critical but has remained hemodynamically stable. No untoward events reported. Despite being on sedation patient is arousable. General exam; elderly male, orally intubated, currently no distress. Arousable . Exam/Review of Systems Vital Signs Vitals Vital Signs Date Time Temp Pulse Resp B/P Pulse Ox O2 Delivery O2 Flow Rate FiO2 07/21/17 08:00 75 07/21/17 06:00 16 140/81 99 Mechanical Ventilator 07/21/17 05:25 40 07/21/17 04:00 99.8 07/19/17 02:30 15.0 Intake and Output 07/20/17 07/20/17 07/21/17 15:00 23:00 07:00 Intake Total 212 ml 245 ml 240 ml Output Total 1485 ml 1245 ml 355 ml Balance -1273 ml -1000 ml -115 ml Exam HEENT exam; supple neck, positive JVD. No lymphadenopathy. Midline trachea. No thyromegaly. Orally intubated. Patient is edentulous. Chest exam; diminished but clear breath sounds. S1-S2 audible, no murmurs. Regular rhythm. Abdomen exam; soft, no organomegaly. Nontender. Bowel sounds audible. Extremity exam; no peripheral edema. Pulses diminished in lower extremities. 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 Results Result Diagram: 07/21/17 0400 07/21/17 0400 Results 24 hrs Laboratory Tests Test 07/20/17 12:53 07/20/17 16:46 07/20/17 20:35 07/21/17 01:16 Bedside Glucose 190 155 158 183 Test 07/21/17 04:00 07/21/17 05:21 07/21/17 08:28 White Blood Count 9.9 Red Blood Count 4.62 L Hemoglobin 14.6 Hematocrit 44.2 Mean Corpuscular Volume 95.7 Mean Corpuscular Hemoglobin 31.6 Mean Corpuscular Hemoglobin Concent 33.0 Red Cell Distribution Width 13.0 Platelet Count 155 Mean Platelet Volume 12.1 H Neutrophils % 66.0 Lymphocytes % 23.8 Monocytes % 9.2 Eosinophils % 0.4 Basophils % 0.4 Nucleated Red Blood Cells % 0.0 Neutrophils # 6.5 Lymphocytes # 2.4 Monocytes # 0.9 Eosinophils # 0.0 Basophils # 0.0 Nucleated Red Blood Cells # 0.0 Sodium Level 139 Potassium Level 3.3 L Chloride Level 105 Carbon Dioxide Level 28 Anion Gap 9 Blood Urea Nitrogen 26 H Creatinine 0.82 Glucose Level 183 Calcium Level 8.9 Bedside Glucose 183 179 Medications Medications Current Medications Ondansetron HCl (Zofran Inj) 4 mg Q6H PRN IV NAUSEA AND/OR VOMITING; Start at 01:30 Acetaminophen (Tylenol Liquid) 650 mg Q6H PRN PO PAIN LEVEL 1-3 OR FEVER Last administered on 07/19/17 18:53; Admin Dose 650 MG; Start 07/19/17 at 01:30 Morphine Sulfate (morphine) 2 mg Q4H PRN IV PAIN LEVEL 7-10; Start 07/19/17 at 01:30 Lorazepam (Ativan) 1 mg Q2H PRN IV ANXIETY Last administered on 07/21/17 04:32 ; Admin Dose 1 MG; Start 07/19/17 at 01:30 Famotidine (Pepcid Iv) 20 mg Q12 IV Last administered on 07/21/17 09:23; Admin Dose 20 MG; Start 07/19/17 at 09:00 Heparin Sodium (Porcine) (Heparin (5000 Units/0.5 ml)) 5,000 unit Q12 SC Last administered on 07/19/17 20:26; Admin Dose 5,000 UNIT; Start 07/19/17 at 09:00 ; Status Future Hold Diagnostic Test (Pha) (Accu-Chek) 1 ea 02 XX Last administered on 07/21/17 01: 20; Admin Dose 1 EA; Start 07/19/17 at 02:00 Insulin Glargine (Lantus) 15 unit DAILY@08 SC Last administered on 07/21/17 08 :30; Admin Dose 15 UNIT; Start 07/19/17 at 08:00 Atorvastatin Calcium (Lipitor) 20 mg DAILY PO Last administered on 07/21/17 08 :15; Admin Dose 20 MG; Start 07/19/17 at 09:00 Clopidogrel Bisulfate (plaVIX) 75 mg DAILY PO Last administered on 07/21/17 08 :15; Admin Dose 75 MG; Start 07/19/17 at 09:00 Valsartan (Diovan) 320 mg DAILY PO ; Start 07/19/17 at 09:00; Status Future Hold Miscellaneous Information 1 ea NOTE XX ; Start 07/19/17 at 02:00 Glucose (Glutose) 15 gm Q15M PRN PO DECREASED GLUCOSE; Start 07/19/17 at 02:00 Glucose (Glutose) 22.5 gm Q15M PRN PO DECREASED GLUCOSE; Start 07/19/17 at 02: 00 Dextrose (D50w Syringe) 25 ml Q15M PRN IV DECREASED GLUCOSE; Start 07/19/17 at 02:00 Dextrose (D50w Syringe) 50 ml Q15M PRN IV DECREASED GLUCOSE; Start 07/19/17 at 02:00 Glucagon (Glucagen) 1 mg Q15M PRN IM DECREASED GLUCOSE; Start 07/19/17 at 02:00 Glucose (Glutose) 15 gm Q15M PRN BUCCAL DECREASED GLUCOSE; Start 07/19/17 at 02 :00 Insulin Aspart (Adult SC Insulin - Mild Algorithm)... Q4 SC Last administered on 07/21/17 08:32; Admin Dose 1 UNIT; Start 07/19/17 at 05:00 Cefepime HCl (Maxipime 2gm/50 ml (Pmx)) 50 ml @ 100 mls/hr Q12 IVPB Last administered on 07/21/17 08:14; Admin Dose 100 MLS/HR; Start 9/17/17 at 10:00 Enoxaparin Sodium (Lovenox) 95 mg Q12 SC Last administered on 07/21/17 08:27; Admin Dose 95 MG; Start 07/19/17 at 09:30 Aspirin 81 mg 81 mg DAILY PO Last administered on 07/21/17 08:15; Admin Dose 81 MG; Start 07/20/17 at 09:00 Potassium Chloride (KCl 40 MEQ/250 ML NS) 250 ml @ 62.5 mls/hr Q4H IVPB Last administered on 07/21/17 08:09; Admin Dose 62.5 MLS/HR; Start 07/21/17 at 08:00 ; Stop 07/21/17 at 15:59 EED DODD Jul 21, 2017 10:30
--- NOTE | 2017-07-21 12:44 | RADRPT ---
Echocardiogram Report Patient Name: MICHELLE LAW Gender: Male Date: 1955 Study Date: 20-Jul-2017 Tip Banding Machine Operator: Bradley [facility] Location: 103 Ref. Physician: LEONOR VELASQUEZ Quality: Adequate Procedures: Transthoracic echocardiogram with complete 2D, M-Mode, and doppler examination. Indications: CHF, elevated troponin. 2D/M Mode Doppler Measurement Value Normal Ranges Measurement Value Normal Ranges LVIDd 2D 5.8 3.5 - 5.6 cm AV Peak Evan 1.4 m/sec LVIDs 2D 4.4 2.1 - 4.1 cm AV Peak PG 7.8 mmHg LVPWd 2D 1.4 0.6 - 1.1 cm LVOT Peak Evan 0.9 m/sec IVSd 2D 1.3 0.6 - 1.1 cm LVOT Peak PG 3.3 mmHg AoR Diam 2D 3.0 2.0 - 3.7 cm MV E Peak Evan 0.7 m/sec EDV 2D 165.1 cm3 MV A Peak Evan 0.6 m/sec ESV 2D 82.9 cm3 MV E/A 1.1 LA Dimen 2D 3.3 2.3 - 4.0 cm MV Decel Time 183 msec MV Decel Moca 4 MV E/A 1.1 TR Peak Evan 2.3 m/sec TR Peak PG 21.4 mmHg RVSP 29.0 mmHg Findings Left Ventricle: Normal left ventricular cavity size. Mild concentric left ventricular hypertrophy. Mild global left ventricular systolic dysfunction. Ejection fraction is visually estimated at 40 %. Abnormal Diastolic Function. Right Ventricle: Normal right ventricular size. Normal right ventricular systolic function. Left Atrium: The left atrium is normal in size. Right Atrium: The right atrium is normal in size. Mitral Valve: Mild mitral annular calcification. Trace mitral regurgitation. Aortic Valve: Aortic sclerosis without stenosis. Trace aortic valve regurgitation. Tricuspid Valve: Normal appearance of the tricuspid valve. Estimated peak PA systolic pressure 29 mmHg. There is mild tricuspid regurgitation. Pulmonic Valve: Pulmonic valve not well visualized. There is trace pulmonic regurgitation. Pericardium: Normal pericardium with no significant pericardial effusion. Aorta: Normal aortic root. IVC: Inferior vena cava without respiratory collapse, however, patient on ventilator. Conclusions 1.The left ventricle is normal in size with moderately reduced systolic function. There is global hypokinesis. 2.Estimated left ventricular ejection fraction or 40%. Electronically Signed By: Leonor Velasquez 21-Jul-2017 12:43:53 -0700 Patient Name: MICHELLE LAW Study Date: 20-Jul-2017 [id number]
--- NOTE | 2017-07-21 13:07 | CONS ---
Date/Time of Note Date/Time of Note DATE: 07/21/17 TIME: 13:02 Assessment/Plan Assessment/Plan Chief Complaint/Hosp Course Assessment: Acute on chronic systolic heart failure - improving with diuresis Ischemic cardiomyopathy - LVEF 40% on current echocardiogram NSTEMI - likely type 2, conservative management Coronary artery disease - multiple coronary stents, most recently in 2012 Hypertension - blood pressure elevated Acute hypoxic and hypercarbic respiratory failure - intubated, per pulmonology Possible pneumonia - on antibiotics Possible chronic obstructive pulmonary disease - former smoker Diabetes mellitus - per primary team Reported medication noncompliance Recommendations: -echocardiogram showed LVEF 40% with global hypokinesis -continue Lasix 40mg IV BID -resume on carvedilol 6.25mg BID and valsartan 80mg BID, up titrate as needed/ tolerated -continue aspirin at 81mg daily and clopidogrel 75mg daily -continue atorvastatin 20mg daily Problems: Consultation Date/Type/Reason Admit Date/Time Jul 19, 2017 at 00:28 Initial Consult Date Type of Consultation: Cardiology 24 HR Interval Summary Free Text/Dictation Diuresing well. Congestive heart failure improved on chest x-ray. Blood pressures elevated. Remains intubated. Detailed Summary Additional Comments Unable to obtain review of systems, patient is intubated. Exam/Review of Systems Vital Signs Vitals Vital Signs Date Time Temp Pulse Resp B/P Pulse Ox O2 Delivery O2 Flow Rate FiO2 07/21/17 12:00 97 07/21/17 12:00 24 200/99 100 Mechanical Ventilator 07/21/17 11:10 40 07/21/17 08:00 99.5 07/19/17 02:30 15.0 Intake and Output 07/20/17 07/20/17 07/21/17 15:00 23:00 07:00 Intake Total 212 ml 245 ml 264 ml Output Total 1485 ml 1245 ml 355 ml Balance -1273 ml -1000 ml -91 ml Exam Constitutional: other (intubated), No alert Psych: No nl mood/affect Head: atraumatic, normocephalic Eyes: nl conjunctiva, nl lids ENMT: intubated Respiratory: crackles/rales, diminished breath sounds Cardiovascular: regular rate and rhythm Gastrointestinal: non-tender, soft Musculoskeletal: nl extremities to inspection Extremities: No clubbing, No cyanosis, No edema Neurological: No nl mental status, No nl speech Results Result Diagram: 07/21/17 0400 07/21/17 0400 Results 24 hrs Laboratory Tests Test 07/20/17 16:46 07/20/17 20:35 07/21/17 01:16 07/21/17 04:00 Bedside Glucose 155 158 183 White Blood Count 9.9 Red Blood Count 4.62 L Hemoglobin 14.6 Hematocrit 44.2 Mean Corpuscular Volume 95.7 Mean Corpuscular Hemoglobin 31.6 Mean Corpuscular Hemoglobin Concent 33.0 Red Cell Distribution Width 13.0 Platelet Count 155 Mean Platelet Volume 12.1 H Neutrophils % 66.0 Lymphocytes % 23.8 Monocytes % 9.2 Eosinophils % 0.4 Basophils % 0.4 Nucleated Red Blood Cells % 0.0 Neutrophils # 6.5 Lymphocytes # 2.4 Monocytes # 0.9 Eosinophils # 0.0 Basophils # 0.0 Nucleated Red Blood Cells # 0.0 Sodium Level 139 Potassium Level 3.3 L Chloride Level 105 Carbon Dioxide Level 28 Anion Gap 9 Blood Urea Nitrogen 26 H Creatinine 0.82 Glucose Level 183 Calcium Level 8.9 Test 07/21/17 05:21 07/21/17 08:28 07/21/17 12:17 Bedside Glucose 183 179 213 Medications Medications Current Medications Ondansetron HCl (Zofran Inj) 4 mg Q6H PRN IV NAUSEA AND/OR VOMITING; Start at 01:30 Acetaminophen (Tylenol Liquid) 650 mg Q6H PRN PO PAIN LEVEL 1-3 OR FEVER Last administered on 07/19/17 18:53; Admin Dose 650 MG; Start 07/19/17 at 01:30 Morphine Sulfate (morphine) 2 mg Q4H PRN IV PAIN LEVEL 7-10; Start 07/19/17 at 01:30 Lorazepam (Ativan) 1 mg Q2H PRN IV ANXIETY Last administered on 07/21/17 11:15 ; Admin Dose 1 MG; Start 07/19/17 at 01:30 Famotidine (Pepcid Iv) 20 mg Q12 IV Last administered on 07/21/17 09:23; Admin Dose 20 MG; Start 07/19/17 at 09:00 Diagnostic Test (Pha) (Accu-Chek) 1 ea 02 XX Last administered on 07/21/17 01: 20; Admin Dose 1 EA; Start 07/19/17 at 02:00 Insulin Glargine (Lantus) 15 unit DAILY@08 SC Last administered on 07/21/17 08 :30; Admin Dose 15 UNIT; Start 07/19/17 at 08:00 Atorvastatin Calcium (Lipitor) 20 mg DAILY PO Last administered on 07/21/17 08 :15; Admin Dose 20 MG; Start 07/19/17 at 09:00 Clopidogrel Bisulfate (plaVIX) 75 mg DAILY PO Last administered on 07/21/17 08 :15; Admin Dose 75 MG; Start 07/19/17 at 09:00 Valsartan (Diovan) 320 mg DAILY PO ; Start 07/19/17 at 09:00; Status Future Hold Miscellaneous Information 1 ea NOTE XX ; Start 07/19/17 at 02:00 Glucose (Glutose) 15 gm Q15M PRN PO DECREASED GLUCOSE; Start 07/19/17 at 02:00 Glucose (Glutose) 22.5 gm Q15M PRN PO DECREASED GLUCOSE; Start 07/19/17 at 02: 00 Dextrose (D50w Syringe) 25 ml Q15M PRN IV DECREASED GLUCOSE; Start 07/19/17 at 02:00 Dextrose (D50w Syringe) 50 ml Q15M PRN IV DECREASED GLUCOSE; Start 07/19/17 at 02:00 Glucagon (Glucagen) 1 mg Q15M PRN IM DECREASED GLUCOSE; Start 07/19/17 at 02:00 Glucose (Glutose) 15 gm Q15M PRN BUCCAL DECREASED GLUCOSE; Start 07/19/17 at 02 :00 Insulin Aspart (Adult SC Insulin - Mild Algorithm)... Q4 SC Last administered on 07/21/17 12:22; Admin Dose 2 UNIT; Start 07/19/17 at 05:00 Cefepime HCl (Maxipime 2gm/50 ml (Pmx)) 50 ml @ 100 mls/hr Q12 IVPB Last administered on 07/21/17 08:14; Admin Dose 100 MLS/HR; Start 07/19/17 at 10:00 Enoxaparin Sodium (Lovenox) 95 mg Q12 SC Last administered on 07/21/17 08:27; Admin Dose 95 MG; Start 07/19/17 at 09:30 Aspirin 81 mg 81 mg DAILY PO Last administered on 07/21/17 08:15; Admin Dose 81 MG; Start 07/20/17 at 09:00 Potassium Chloride (KCl 40 MEQ/250 ML NS) 250 ml @ 62.5 mls/hr Q4H IVPB Last administered on 07/21/17 12:24; Admin Dose 62.5 MLS/HR; Start 07/21/17 at 08:00 ; Stop 07/21/17 at 15:59 LEONOR VELASQUEZ MD Jul 21, 2017 13:07
[2017-07-21] MEDS ORDERED: hydrALAzine 20 MG INJ IV PRN (13:30)
[2017-07-21] MEDS: VALSARTAN 80 MG TAB PO SCH ×2 (13:46→21:39)
--- NOTE | 2017-07-21 14:49 | PN ---
Date/Time of Note Date/Time of Note DATE: 07/21/17 TIME: 14:48 Assessment/Plan VTE Prophylaxis VTE Prophylaxis Intervention: SCD's Lines/Catheters IV Catheter Type (from Nrsg): Peripheral IV Urinary Cath still in place: Yes Reason Cath still needed: other (indicate) (critically ill) Assessment/Plan Assessment/Plan 62-year-old male with chronic systolic HF (EF 30%), CAD sp PCI, HTN, DM presented with SOB most likely acute on chronic systolic HF with concern for possible underlying respiratory infection with resultant NSTEMI 2/2 demand. #acute on chronic CHF -TTE with EF 40% -cont diuresis -extubation for volume overload as per pulm -ARB restarted at lower dose by cards; bb also resumed #possible underlying pna -procalcitonin ordered though suspect this is a send out lab -sputum culture with NRF-->narrow Abx to CAP treatment with levoflox. 7 days total antimicrobials #NSTEMI likely 2/2 demand -cardiology on consult #DM2: insulin + SSI a1c 10s, CDE consult GI prophx while intubated Pt remains in the ICU as per pulm not yet ready to be extubated critical care time: 30 minutes Subjective 24 Hr Interval Summary Free Text/Dictation Still intubated Exam/Review of Systems Vital Signs Vitals Vital Signs Date Time Temp Pulse Resp B/P Pulse Ox O2 Delivery O2 Flow Rate FiO2 07/21/17 14:15 85 20 98 07/21/17 14:00 156/73 Mechanical Ventilator 07/21/17 12:15 99.3 07/21/17 11:10 40 07/19/17 02:30 15.0 Intake and Output 07/20/17 07/20/17 07/21/17 15:00 23:00 07:00 Intake Total 212 ml 245 ml 264 ml Output Total 1485 ml 1245 ml 355 ml Balance -1273 ml -1000 ml -91 ml Exam intubated coarse breath sounds no mrg abd soft no rashes Results Result Diagram: 07/21/17 0400 07/21/17 0400 Results 24 hrs Laboratory Tests Test 07/20/17 16:46 07/20/17 20:35 07/21/17 01:16 07/21/17 04:00 Bedside Glucose 155 158 183 White Blood Count 9.9 Red Blood Count 4.62 L Hemoglobin 14.6 Hematocrit 44.2 Mean Corpuscular Volume 95.7 Mean Corpuscular Hemoglobin 31.6 Mean Corpuscular Hemoglobin Concent 33.0 Red Cell Distribution Width 13.0 Platelet Count 155 Mean Platelet Volume 12.1 H Neutrophils % 66.0 Lymphocytes % 23.8 Monocytes % 9.2 Eosinophils % 0.4 Basophils % 0.4 Nucleated Red Blood Cells % 0.0 Neutrophils # 6.5 Lymphocytes # 2.4 Monocytes # 0.9 Eosinophils # 0.0 Basophils # 0.0 Nucleated Red Blood Cells # 0.0 Sodium Level 139 Potassium Level 3.3 L Chloride Level 105 Carbon Dioxide Level 28 Anion Gap 9 Blood Urea Nitrogen 26 H Creatinine 0.82 Glucose Level 183 Calcium Level 8.9 Test 07/21/17 05:21 07/21/17 08:28 07/21/17 12:17 Bedside Glucose 183 179 213 Medications Medications Current Medications Ondansetron HCl (Zofran Inj) 4 mg Q6H PRN IV NAUSEA AND/OR VOMITING; Start at 01:30 Acetaminophen (Tylenol Liquid) 650 mg Q6H PRN PO PAIN LEVEL 1-3 OR FEVER Last administered on 07/19/17 18:53; Admin Dose 650 MG; Start 07/19/17 at 01:30 Morphine Sulfate (morphine) 2 mg Q4H PRN IV PAIN LEVEL 7-10; Start 07/19/17 at 01:30 Lorazepam (Ativan) 1 mg Q2H PRN IV ANXIETY Last administered on 07/21/17 13:47 ; Admin Dose 1 MG; Start 07/19/17 at 01:30 Famotidine (Pepcid Iv) 20 mg Q12 IV Last administered on 07/21/17 09:23; Admin Dose 20 MG; Start 07/19/17 at 09:00 Diagnostic Test (Pha) (Accu-Chek) 1 ea 02 XX Last administered on 07/21/17 01: 20; Admin Dose 1 EA; Start 07/19/17 at 02:00 Insulin Glargine (Lantus) 15 unit DAILY@08 SC Last administered on 07/21/17 08 :30; Admin Dose 15 UNIT; Start 07/19/17 at 08:00 Atorvastatin Calcium (Lipitor) 20 mg DAILY PO Last administered on 07/21/17 08 :15; Admin Dose 20 MG; Start 07/19/17 at 09:00 Clopidogrel Bisulfate (plaVIX) 75 mg DAILY PO Last administered on 07/21/17 08 :15; Admin Dose 75 MG; Start 07/19/17 at 09:00 Miscellaneous Information 1 ea NOTE XX ; Start 07/19/17 at 02:00 Glucose (Glutose) 15 gm Q15M PRN PO DECREASED GLUCOSE; Start 07/19/17 at 02:00 Glucose (Glutose) 22.5 gm Q15M PRN PO DECREASED GLUCOSE; Start 07/19/17 at 02: 00 Dextrose (D50w Syringe) 25 ml Q15M PRN IV DECREASED GLUCOSE; Start 07/19/17 at 02:00 Dextrose (D50w Syringe) 50 ml Q15M PRN IV DECREASED GLUCOSE; Start 07/19/17 at 02:00 Glucagon (Glucagen) 1 mg Q15M PRN IM DECREASED GLUCOSE; Start 07/19/17 at 02:00 Glucose (Glutose) 15 gm Q15M PRN BUCCAL DECREASED GLUCOSE; Start 07/19/17 at 02 :00 Insulin Aspart (Adult SC Insulin - Mild Algorithm)... Q4 SC Last administered on 07/21/17 12:22; Admin Dose 2 UNIT; Start 07/19/17 at 05:00 Cefepime HCl (Maxipime 2gm/50 ml (Pmx)) 50 ml @ 100 mls/hr Q12 IVPB Last administered on 07/21/17 08:14; Admin Dose 100 MLS/HR; Start 07/19/17 at 10:00 Enoxaparin Sodium (Lovenox) 95 mg Q12 SC Last administered on 07/21/17 08:27; Admin Dose 95 MG; Start 07/19/17 at 09:30 Aspirin 81 mg 81 mg DAILY PO Last administered on 07/21/17 08:15; Admin Dose 81 MG; Start 07/20/17 at 09:00 Potassium Chloride (KCl 40 MEQ/250 ML NS) 250 ml @ 62.5 mls/hr Q4H IVPB Last administered on 07/21/17 12:24; Admin Dose 62.5 MLS/HR; Start 07/21/17 at 08:00 ; Stop 07/21/17 at 15:59 Carvedilol (Coreg) 6.25 mg BID PO Last administered on 07/21/17 13:47; Admin Dose 6.25 MG; Start 07/21/17 at 13:30 Valsartan (Diovan) 80 mg BID PO Last administered on 07/21/17 13:46; Admin Dose 80 MG; Start 07/21/17 at 13:30 KAYCEE SWARTZ MD Jul 21, 2017 14:49
[2017-07-21 18:06] LABS: CALCIUM 8.9 mg/dl (8.4-10.2); CREATININE 0.84 mg/dl (0.61-1.24); POTASSIUM 3.9 mmol/L (3.5-5.1)
[2017-07-21] MEDS: LEVOFLOXACIN 750 MG TABLET PO SCH (18:08)
[2017-07-22] VITALS (52 sets, daily range): BP systolic 98–202; BP diastolic 55–128; PULSE 68–98; RESP 8–30
[2017-07-22] MEDS: PROPOFOL 100 ML IV SCH ×6 (00:28→22:45)
[2017-07-22] MEDS: LORAZEPAM 2 MG INJ IV PRN ×4 (00:47→22:15)
[2017-07-22] MEDS: Insulin NOVOLOG SS MILD Algorithm (NPO/TPN/ENTERAL FEEDS) SC SCH ×6 (01:06→22:44)
[2017-07-22] MEDS: ACCU-CHEK XX SCH (01:09)
[2017-07-22] MEDS: LEVOFLOXACIN 750 MG TABLET PO SCH (05:07)
[2017-07-22] MEDS: FUROSEMIDE 40 MG INJ IV SCH ×2 (05:10→18:05)
[2017-07-22 05:42] LABS: BASOPHIL # 0.1 10^3/ul (0.0-0.1); BASOPHILS % 0.6 % (0.0-2.0); EOSINOPHILS # 0.2 10^3/ul (0.0-0.5); EOSINOPHILS % 1.7 % (0.0-7.0); HEMATOCRIT 42.3 % (42.0-52.0); HEMOGLOBIN 14.1 g/dl (14.0-18.0); LYMPHOCYTES # 2.3 10^3/ul (0.8-2.9); LYMPHOCYTES % 26.5 % (15.0-51.0); MEAN CORPUSCULAR HEMOGLOBIN 30.9 pg (29.0-33.0); MEAN CORPUSCULAR HGB CONC 33.3 g/dl (32.0-37.0); MEAN CORPUSCULAR VOLUME 92.8 fl (82.0-101.0); MONOCYTE # 0.8 10^3/ul (0.3-0.9); MONOCYTES % 8.8 % (0.0-11.0); NEUTROPHIL # 5.4 10^3/ul (1.6-7.5); NEUTROPHILS % 62.1 % (39.0-77.0); PLATELET COUNT 164 10^3/UL (140-415); RED BLOOD COUNT 4.56 10^6/ul (4.70-6.10); WHITE BLOOD COUNT 8.7 10^3/ul (4.8-10.8)
[2017-07-22 06:26] LABS: CALCIUM 8.7 mg/dl (8.4-10.2); CREATININE 0.78 mg/dl (0.61-1.24); POTASSIUM 3.7 mmol/L (3.5-5.1)
[2017-07-22] MEDS: FAMOTIDINE 20 MG INJ IV SCH ×2 (09:06→22:00)
[2017-07-22] MEDS: ASPIRIN 81 MG TAB PO SCH (09:07)
[2017-07-22] MEDS: VALSARTAN 80 MG TAB PO SCH ×2 (09:07→22:00)
[2017-07-22] MEDS: CLOPIDOGREL 75 MG TAB PO SCH (09:07)
[2017-07-22] MEDS: ATORVASTATIN 20 MG TAB PO SCH (09:07)
[2017-07-22] MEDS: INSULIN GLARGINE [LANtus] 3 ML PEN SC SCH (09:09)
[2017-07-22] MEDS: ENOXAPARIN 100 MG/ML SYG SC SCH ×2 (09:10→22:02)
[2017-07-22] MEDS: morphine 2 MG INJ IV PRN (09:28)
[2017-07-22 10:30] LABS: AADO2 Arterial 78.7 mmHg (7.0-24.0); Allen Test ACCEPTAB; Arterial Base Excess 2.7 mmol/L (-3.0-3); Arterial COHb 0.4 % (0.0-3.0); Arterial Fraction of Oxyhgb 96.1 % (93.0-99.0); Arterial MetHb 0.2 % (0.0-1.5); Arterial Total Hemglobin 15.8 g/dl (12.0-18.0); Blood Gas PS 10; MODE VENT - CPAP
--- NOTE | 2017-07-22 11:24 | CONS ---
Date/Time of Note Date/Time of Note DATE: 07/22/17 TIME: 11:21 Assessment/Plan Assessment/Plan Additional Assessment/Plan Ventilator setting; has been switched over to SIMV with a rate of 14, tidal volume 500, pressure support 12, PEEP of 5, 30% FiO2. Assessment and recommendations; 1. Patient admitted with decompensated congestive heart failure leading to respiratory failure. 2. There has been significant radiological improvement however patient unable to handle CPAP mode with tachypnea. 3. History of hypertension or diabetes. 4. Difficult to rule out superimposed pneumonia. Patient did have leukocytosis on admission. 5. Mild thrombocytopenia. Continue current supportive care. Patient is currently not in a position to be weaned off from mechanical ventilation. Will obtain follow-up chest x-ray. Continue diuresis and current Lasix dosing. I did have a detailed discussion patient's at bedside and answered all her questions. Consultation Date/Type/Reason Admit Date/Time Jul 19, 2017 at 00:28 Type of Consultation: Pulmonary/critical care 24 HR Interval Summary Free Text/Dictation Patient condition remains critical. Has been taken off sedation about an hour ago and the patient appearing quite tachypneic and restless. Patient also was switched over to CPAP mode and does not have good weaning parameters as of yet. General exam; elderly male, orally intubated, awake in mild distress. Exam/Review of Systems Vital Signs Vitals Vital Signs Date Time Temp Pulse Resp B/P Pulse Ox O2 Delivery O2 Flow Rate FiO2 07/22/17 08:00 73 07/22/17 06:30 20 108/68 98 Mechanical Ventilator 07/22/17 05:00 30 07/22/17 04:00 98.8 07/19/17 02:30 15.0 Intake and Output 07/21/17 07/21/17 07/22/17 15:00 23:00 07:00 Intake Total 441.0 ml 222 ml 264 ml Output Total 1475 ml 500 ml 260 ml Balance -1034.0 ml -278 ml 4 ml Exam HEENT exam; supple neck, positive JVD. No lymphadenopathy. Midline trachea. No thyromegaly. Patient is edentulous. Pupils are equal and reactive to light. No thyromegaly. Chest exam; diminished but clear breath sounds. S1-S2 audible, no murmurs. Regular rhythm. Abdomen exam; soft, protuberant. Nontender. Bowel sounds audible. No organomegaly. Extremity exam; no peripheral edema. Pulses 1+ bilaterally. 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 Results Result Diagram: 07/22/17 0515 07/22/17 0515 Results 24 hrs Laboratory Tests Test 07/21/17 12:17 07/21/17 17:36 07/21/17 18:10 07/21/17 21:38 Bedside Glucose 213 211 198 Sodium Level 140 Potassium Level 3.9 Chloride Level 108 Carbon Dioxide Level 27 Anion Gap 9 Blood Urea Nitrogen 25 H Creatinine 0.84 Glucose Level 193 Calcium Level 8.9 Magnesium Level 2.0 Test 07/22/17 01:01 07/22/17 04:51 07/22/17 05:15 07/22/17 09:05 Bedside Glucose 198 178 183 White Blood Count 8.7 Red Blood Count 4.56 L Hemoglobin 14.1 Hematocrit 42.3 Mean Corpuscular Volume 92.8 Mean Corpuscular Hemoglobin 30.9 Mean Corpuscular Hemoglobin Concent 33.3 Red Cell Distribution Width 13.0 Platelet Count 164 Mean Platelet Volume 12.0 H Neutrophils % 62.1 Lymphocytes % 26.5 Monocytes % 8.8 Eosinophils % 1.7 Basophils % 0.6 Nucleated Red Blood Cells % 0.0 Neutrophils # 5.4 Lymphocytes # 2.3 Monocytes # 0.8 Eosinophils # 0.2 Basophils # 0.1 Nucleated Red Blood Cells # 0.0 Sodium Level 142 Potassium Level 3.7 Chloride Level 109 Carbon Dioxide Level 26 Anion Gap 11 Blood Urea Nitrogen 28 H Creatinine 0.78 Glucose Level 194 Calcium Level 8.7 Test 07/22/17 09:57 Blood Gas Specimen Source Blood arterial Arterial Blood Date Drawn 07/22/2017 10:16:49 AM Arterial Blood pH (Temp corrected) 7.440 Arterial Blood pCO2 (Temp correct) 40.7 Arterial Blood pO2 (Temp corrected) 87.4 Arterial Blood HCO3 27.0 H Arterial Blood Base Excess 2.7 Arterial Blood Oxygen Saturation 96.7 Jean Test ACCEPTAB Arterial Blood Gas Puncture Site Right Radial Arterial Blood Carboxyhemoglobin 0.4 Arterial Blood Methemoglobin 0.2 Blood Gas A-a O2 Differential 78.7 H Oxyhemoglobin Percent 96.1 Total Hemoglobin 15.8 Blood Gas Temperature 37.0 Blood Gas Actual Respiration Rate 35 Blood Gas Modality VENT - CPAP FiO2 30.0 Blood Gas Low PEEP Setting 5.0 Blood Gas Pressure Support 10 Blood Gas Notified Whom TM Blood Gas Notified Time 07/22/2017 10:30:39 AM Medications Medications Current Medications Ondansetron HCl (Zofran Inj) 4 mg Q6H PRN IV NAUSEA AND/OR VOMITING; Start at 01:30 Acetaminophen (Tylenol Liquid) 650 mg Q6H PRN PO PAIN LEVEL 1-3 OR FEVER Last administered on 07/19/17 18:53; Admin Dose 650 MG; Start 07/19/17 at 01:30 Morphine Sulfate (morphine) 2 mg Q4H PRN IV PAIN LEVEL 7-10 Last administered on 07/22/17 09:28; Admin Dose 2 MG; Start 07/19/17 at 01:30 Lorazepam (Ativan) 1 mg Q2H PRN IV ANXIETY Last administered on 07/22/17 10:26 ; Admin Dose 1 MG; Start 07/19/17 at 01:30 Famotidine (Pepcid Iv) 20 mg Q12 IV Last administered on 07/22/17 09:06; Admin Dose 20 MG; Start 07/19/17 at 09:00 Diagnostic Test (Pha) (Accu-Chek) 1 ea 02 XX Last administered on 07/22/17 01: 09; Admin Dose 1 EA; Start 07/19/17 at 02:00 Insulin Glargine (Lantus) 15 unit DAILY@08 SC Last administered on 07/22/17 09 :09; Admin Dose 15 UNIT; Start 07/19/17 at 08:00 Atorvastatin Calcium (Lipitor) 20 mg DAILY PO Last administered on 07/22/17 09 :07; Admin Dose 20 MG; Start 07/19/17 at 09:00 Clopidogrel Bisulfate (plaVIX) 75 mg DAILY PO Last administered on 07/22/17 09 :07; Admin Dose 75 MG; Start 07/19/17 at 09:00 Miscellaneous Information 1 ea NOTE XX ; Start 07/19/17 at 02:00 Glucose (Glutose) 15 gm Q15M PRN PO DECREASED GLUCOSE; Start 07/19/17 at 02:00 Glucose (Glutose) 22.5 gm Q15M PRN PO DECREASED GLUCOSE; Start 07/19/17 at 02: 00 Dextrose (D50w Syringe) 25 ml Q15M PRN IV DECREASED GLUCOSE; Start 07/19/17 at 02:00 Dextrose (D50w Syringe) 50 ml Q15M PRN IV DECREASED GLUCOSE; Start 07/19/17 at 02:00 Glucagon (Glucagen) 1 mg Q15M PRN IM DECREASED GLUCOSE; Start 07/19/17 at 02:00 Glucose (Glutose) 15 gm Q15M PRN BUCCAL DECREASED GLUCOSE; Start 07/19/17 at 02 :00 Insulin Aspart (Novolog Insulin Pen) (Adult SC Insulin - Mild Algorithm)... Q4 SC Last administered on 07/22/17 09:11; Admin Dose 2 UNIT; Start 07/19/17 at 05:00 Enoxaparin Sodium (Lovenox) 95 mg Q12 SC Last administered on 07/22/17 09:10; Admin Dose 95 MG; Start 07/19/17 at 09:30 Aspirin (Aspirin) 81 mg DAILY PO Last administered on 07/22/17 09:07; Admin Dose 81 MG; Start 07/20/17 at 09:00 Carvedilol (Coreg) 6.25 mg BID PO Last administered on 07/22/17 09:07; Admin Dose 6.25 MG; Start 07/21/17 at 13:30 Valsartan (Diovan) 80 mg BID PO Last administered on 07/22/17 09:07; Admin Dose 80 MG; Start 07/21/17 at 13:30 Levofloxacin (Levaquin) 750 mg DAILY@06 PO Last administered on 07/22/17 05:07 ; Admin Dose 750 MG; Start 07/21/17 at 16:00; Stop 07/24/17 at 06:01 EDE DODD Jul 22, 2017 11:24
--- NOTE | 2017-07-22 13:20 | PN ---
Date/Time of Note Date/Time of Note DATE: 07/22/17 TIME: 13:17 Assessment/Plan VTE Prophylaxis VTE Prophylaxis Intervention: SCD's Lines/Catheters IV Catheter Type (from Nrs): Peripheral IV Urinary Cath still in place: Yes Reason Cath still needed: other (indicate) (critically ill) Assessment/Plan Assessment/Plan 62-year-old male with chronic systolic HF (EF 30%), CAD sp PCI, HTN, DM presented with SOB most likely acute on chronic systolic HF with concern for possible underlying respiratory infection with resultant NSTEMI 2/2 demand. #acute on chronic CHF -TTE with EF 40% -cont diuresis (Pt currently net -6.7L) -extubation for volume overload as per pulm -ARB restarted at lower dose by cards; bb also resumed #possible underlying pna -procalcitonin ordered though suspect this is a send out lab -sputum culture with NRF-->narrow Abx to CAP treatment with levoflox. 7 days total antimicrobials #NSTEMI likely 2/2 demand -cardiology on consult #DM2: insulin + SSI a1c 10s, CDE consult GI prophx while intubated Pt remains in the ICU as per pulm not yet ready to be extubated critical care time: 30 minutes Subjective 24 Hr Interval Summary Free Text/Dictation too agitated during PST to be extubated Exam/Review of Systems Vital Signs Vitals Vital Signs Date Time Temp Pulse Resp B/P Pulse Ox O2 Delivery O2 Flow Rate FiO2 07/22/17 12:30 71 8 103/67 99 07/22/17 12:00 99.2 Mechanical Ventilator 07/22/17 11:10 30 07/19/17 02:30 15.0 Intake and Output 07/21/17 07/21/17 07/22/17 15:00 23:00 07:00 Intake Total 441.0 ml 222 ml 264 ml Output Total 1475 ml 500 ml 260 ml Balance -1034.0 ml -278 ml 4 ml Exam nad, intubated no mrg breath sounds improving no rashes abd soft Results Result Diagram: 07/22/17 0515 07/22/17 0515 Results 24 hrs Laboratory Tests Test 07/21/17 17:36 07/21/17 18:10 07/21/17 21:38 07/22/17 01:01 Sodium Level 140 Potassium Level 3.9 Chloride Level 108 Carbon Dioxide Level 27 Anion Gap 9 Blood Urea Nitrogen 25 H Creatinine 0.84 Glucose Level 193 Calcium Level 8.9 Magnesium Level 2.0 Bedside Glucose 211 198 198 Test 07/22/17 04:51 07/22/17 05:15 07/22/17 09:05 07/22/17 09:57 Bedside Glucose 178 183 White Blood Count 8.7 Red Blood Count 4.56 L Hemoglobin 14.1 Hematocrit 42.3 Mean Corpuscular Volume 92.8 Mean Corpuscular Hemoglobin 30.9 Mean Corpuscular Hemoglobin Concent 33.3 Red Cell Distribution Width 13.0 Platelet Count 164 Mean Platelet Volume 12.0 H Neutrophils % 62.1 Lymphocytes % 26.5 Monocytes % 8.8 Eosinophils % 1.7 Basophils % 0.6 Nucleated Red Blood Cells % 0.0 Neutrophils # 5.4 Lymphocytes # 2.3 Monocytes # 0.8 Eosinophils # 0.2 Basophils # 0.1 Nucleated Red Blood Cells # 0.0 Sodium Level 142 Potassium Level 3.7 Chloride Level 109 Carbon Dioxide Level 26 Anion Gap 11 Blood Urea Nitrogen 28 H Creatinine 0.78 Glucose Level 194 Calcium Level 8.7 Blood Gas Specimen Source Blood arterial Arterial Blood Date Drawn 07/22/2017 10:16:49 AM Arterial Blood pH (Temp corrected) 7.440 Arterial Blood pCO2 (Temp correct) 40.7 Arterial Blood pO2 (Temp corrected) 87.4 Arterial Blood HCO3 27.0 H Arterial Blood Base Excess 2.7 Arterial Blood Oxygen Saturation 96.7 Jean Test ACCEPTAB Arterial Blood Gas Puncture Site Right Radial Arterial Blood Carboxyhemoglobin 0.4 Arterial Blood Methemoglobin 0.2 Blood Gas A-a O2 Differential 78.7 H Oxyhemoglobin Percent 96.1 Total Hemoglobin 15.8 Blood Gas Temperature 37.0 Blood Gas Actual Respiration Rate 35 Blood Gas Modality VENT - CPAP FiO2 30.0 Blood Gas Low PEEP Setting 5.0 Blood Gas Pressure Support 10 Blood Gas Notified Whom TM Blood Gas Notified Time 07/22/2017 10:30:39 AM Test 07/22/17 12:41 Bedside Glucose 183 Medications Medications Current Medications Ondansetron HCl (Zofran Inj) 4 mg Q6H PRN IV NAUSEA AND/OR VOMITING; Start at 01:30 Acetaminophen (Tylenol Liquid) 650 mg Q6H PRN PO PAIN LEVEL 1-3 OR FEVER Last administered on 07/19/17 18:53; Admin Dose 650 MG; Start 07/19/17 at 01:30 Morphine Sulfate (morphine) 2 mg Q4H PRN IV PAIN LEVEL 7-10 Last administered on 07/22/17 09:28; Admin Dose 2 MG; Start 07/19/17 at 01:30 Lorazepam (Ativan) 1 mg Q2H PRN IV ANXIETY Last administered on 07/22/17 10:26 ; Admin Dose 1 MG; Start 07/19/17 at 01:30 Famotidine (Pepcid Iv) 20 mg Q12 IV Last administered on 07/22/17 09:06; Admin Dose 20 MG; Start 07/19/17 at 09:00 Diagnostic Test (Pha) (Accu-Chek) 1 ea 02 XX Last administered on 07/22/17 01: 09; Admin Dose 1 EA; Start 07/19/17 at 02:00 Insulin Glargine (Lantus) 15 unit DAILY@08 SC Last administered on 07/22/17 09 :09; Admin Dose 15 UNIT; Start 07/19/17 at 08:00 Atorvastatin Calcium (Lipitor) 20 mg DAILY PO Last administered on 07/22/17 09 :07; Admin Dose 20 MG; Start 07/19/17 at 09:00 Clopidogrel Bisulfate (plaVIX) 75 mg DAILY PO Last administered on 07/22/17 09 :07; Admin Dose 75 MG; Start 07/19/17 at 09:00 Miscellaneous Information 1 ea NOTE XX ; Start 07/19/17 at 02:00 Glucose (Glutose) 15 gm Q15M PRN PO DECREASED GLUCOSE; Start 07/19/17 at 02:00 Glucose (Glutose) 22.5 gm Q15M PRN PO DECREASED GLUCOSE; Start 07/19/17 at 02: 00 Dextrose (D50w Syringe) 25 ml Q15M PRN IV DECREASED GLUCOSE; Start 07/19/17 at 02:00 Dextrose (D50w Syringe) 50 ml Q15M PRN IV DECREASED GLUCOSE; Start 07/19/17 at 02:00 Glucagon (Glucagen) 1 mg Q15M PRN IM DECREASED GLUCOSE; Start 07/19/17 at 02:00 Glucose (Glutose) 15 gm Q15M PRN BUCCAL DECREASED GLUCOSE; Start 07/19/17 at 02 :00 Insulin Aspart (Novolog Insulin Pen) (Adult SC Insulin - Mild Algorithm)... Q4 SC Last administered on 07/22/17 13:06; Admin Dose 2 UNIT; Start 07/19/17 at 05:00 Enoxaparin Sodium (Lovenox) 95 mg Q12 SC Last administered on 07/22/17 09:10; Admin Dose 95 MG; Start 07/19/17 at 09:30 Aspirin (Aspirin) 81 mg DAILY PO Last administered on 07/22/17 09:07; Admin Dose 81 MG; Start 07/20/17 at 09:00 Carvedilol (Coreg) 6.25 mg BID PO Last administered on 07/22/17 09:07; Admin Dose 6.25 MG; Start 07/21/17 at 13:30 Valsartan (Diovan) 80 mg BID PO Last administered on 07/22/17 09:07; Admin Dose 80 MG; Start 07/21/17 at 13:30 Levofloxacin (Levaquin) 750 mg DAILY@06 PO Last administered on 07/22/17 05:07 ; Admin Dose 750 MG; Start 07/21/17 at 16:00; Stop 07/24/17 at 06:01 KAYCEE SWARTZ MD Jul 22, 2017 13:20
--- NOTE | 2017-07-22 13:50 | CONS ---
Date/Time of Note Date/Time of Note DATE: 07/22/17 TIME: 13:49 Assessment/Plan Assessment/Plan Chief Complaint/Hosp Course Assessment: Acute on chronic systolic heart failure - improving with diuresis Ischemic cardiomyopathy - LVEF 40% on current echocardiogram NSTEMI - likely type 2, conservative management Coronary artery disease - multiple coronary stents, most recently in 2012 Hypertension - blood pressure elevated Acute hypoxic and hypercarbic respiratory failure - intubated, per pulmonology Possible pneumonia - on antibiotics Possible chronic obstructive pulmonary disease - former smoker Diabetes mellitus - per primary team Reported medication noncompliance Recommendations: -echocardiogram showed LVEF 40% with global hypokinesis -continue Lasix 40mg IV BID -continue carvedilol 6.25mg BID and valsartan 80mg BID, up titrate as needed/ tolerated -continue aspirin at 81mg daily and clopidogrel 75mg daily -continue atorvastatin 20mg daily Problems: Consultation Date/Type/Reason Admit Date/Time Jul 19, 2017 at 00:28 Type of Consultation: Cardiology 24 HR Interval Summary Free Text/Dictation Blood pressures better controlled. Diuresing well. Remains intubated, now on SIMV. Did not tolerate CPAP. Detailed Summary Additional Comments Unable to obtain review of systems, patient intubated. Exam/Review of Systems Vital Signs Vitals Vital Signs Date Time Temp Pulse Resp B/P Pulse Ox O2 Delivery O2 Flow Rate FiO2 07/22/17 12:30 71 8 103/67 99 07/22/17 12:00 99.2 Mechanical Ventilator 07/22/17 11:10 30 07/19/17 02:30 15.0 Intake and Output 07/21/17 07/21/17 07/22/17 15:00 23:00 07:00 Intake Total 441.0 ml 222 ml 264 ml Output Total 1475 ml 500 ml 260 ml Balance -1034.0 ml -278 ml 4 ml Exam Constitutional: other (intubated), No alert Psych: No nl mood/affect Head: atraumatic, normocephalic Eyes: nl conjunctiva, nl lids ENMT: intubated Respiratory: crackles/rales, diminished breath sounds Cardiovascular: regular rate and rhythm Gastrointestinal: non-tender, soft Musculoskeletal: nl extremities to inspection Extremities: No clubbing, No cyanosis, No edema Neurological: No nl mental status, No nl speech Results Result Diagram: 07/22/17 0515 07/22/17 0515 Results 24 hrs Laboratory Tests Test 07/21/17 17:36 07/21/17 18:10 07/21/17 21:38 07/22/17 01:01 Sodium Level 140 Potassium Level 3.9 Chloride Level 108 Carbon Dioxide Level 27 Anion Gap 9 Blood Urea Nitrogen 25 H Creatinine 0.84 Glucose Level 193 Calcium Level 8.9 Magnesium Level 2.0 Bedside Glucose 211 198 198 Test 07/22/17 04:51 07/22/17 05:15 07/22/17 09:05 07/22/17 09:57 Bedside Glucose 178 183 White Blood Count 8.7 Red Blood Count 4.56 L Hemoglobin 14.1 Hematocrit 42.3 Mean Corpuscular Volume 92.8 Mean Corpuscular Hemoglobin 30.9 Mean Corpuscular Hemoglobin Concent 33.3 Red Cell Distribution Width 13.0 Platelet Count 164 Mean Platelet Volume 12.0 H Neutrophils % 62.1 Lymphocytes % 26.5 Monocytes % 8.8 Eosinophils % 1.7 Basophils % 0.6 Nucleated Red Blood Cells % 0.0 Neutrophils # 5.4 Lymphocytes # 2.3 Monocytes # 0.8 Eosinophils # 0.2 Basophils # 0.1 Nucleated Red Blood Cells # 0.0 Sodium Level 142 Potassium Level 3.7 Chloride Level 109 Carbon Dioxide Level 26 Anion Gap 11 Blood Urea Nitrogen 28 H Creatinine 0.78 Glucose Level 194 Calcium Level 8.7 Blood Gas Specimen Source Blood arterial Arterial Blood Date Drawn 07/22/2017 10:16:49 AM Arterial Blood pH (Temp corrected) 7.440 Arterial Blood pCO2 (Temp correct) 40.7 Arterial Blood pO2 (Temp corrected) 87.4 Arterial Blood HCO3 27.0 H Arterial Blood Base Excess 2.7 Arterial Blood Oxygen Saturation 96.7 Jean Test ACCEPTAB Arterial Blood Gas Puncture Site Right Radial Arterial Blood Carboxyhemoglobin 0.4 Arterial Blood Methemoglobin 0.2 Blood Gas A-a O2 Differential 78.7 H Oxyhemoglobin Percent 96.1 Total Hemoglobin 15.8 Blood Gas Temperature 37.0 Blood Gas Actual Respiration Rate 35 Blood Gas Modality VENT - CPAP FiO2 30.0 Blood Gas Low PEEP Setting 5.0 Blood Gas Pressure Support 10 Blood Gas Notified Whom TM Blood Gas Notified Time 07/22/2017 10:30:39 AM Test 07/22/17 12:41 Bedside Glucose 183 Medications Medications Current Medications Ondansetron HCl (Zofran Inj) 4 mg Q6H PRN IV NAUSEA AND/OR VOMITING; Start at 01:30 Acetaminophen (Tylenol Liquid) 650 mg Q6H PRN PO PAIN LEVEL 1-3 OR FEVER Last administered on 07/19/17 18:53; Admin Dose 650 MG; Start 07/19/17 at 01:30 Morphine Sulfate (morphine) 2 mg Q4H PRN IV PAIN LEVEL 7-10 Last administered on 07/22/17 09:28; Admin Dose 2 MG; Start 07/19/17 at 01:30 Lorazepam (Ativan) 1 mg Q2H PRN IV ANXIETY Last administered on 07/22/17 10:26 ; Admin Dose 1 MG; Start 07/19/17 at 01:30 Famotidine (Pepcid Iv) 20 mg Q12 IV Last administered on 07/22/17 09:06; Admin Dose 20 MG; Start 07/19/17 at 09:00 Diagnostic Test (Pha) (Accu-Chek) 1 ea 02 XX Last administered on 07/22/17 01: 09; Admin Dose 1 EA; Start 07/19/17 at 02:00 Insulin Glargine (Lantus) 15 unit DAILY@08 SC Last administered on 07/22/17 09 :09; Admin Dose 15 UNIT; Start 07/19/17 at 08:00 Atorvastatin Calcium (Lipitor) 20 mg DAILY PO Last administered on 07/22/17 09 :07; Admin Dose 20 MG; Start 07/19/17 at 09:00 Clopidogrel Bisulfate (plaVIX) 75 mg DAILY PO Last administered on 07/22/17 09 :07; Admin Dose 75 MG; Start 07/19/17 at 09:00 Miscellaneous Information 1 ea NOTE XX ; Start 07/19/17 at 02:00 Glucose (Glutose) 15 gm Q15M PRN PO DECREASED GLUCOSE; Start 07/19/17 at 02:00 Glucose (Glutose) 22.5 gm Q15M PRN PO DECREASED GLUCOSE; Start 07/19/17 at 02: 00 Dextrose (D50w Syringe) 25 ml Q15M PRN IV DECREASED GLUCOSE; Start 07/19/17 at 02:00 Dextrose (D50w Syringe) 50 ml Q15M PRN IV DECREASED GLUCOSE; Start 07/19/17 at 02:00 Glucagon (Glucagen) 1 mg Q15M PRN IM DECREASED GLUCOSE; Start 07/19/17 at 02:00 Glucose (Glutose) 15 gm Q15M PRN BUCCAL DECREASED GLUCOSE; Start 07/19/17 at 02 :00 Insulin Aspart (Novolog Insulin Pen) (Adult SC Insulin - Mild Algorithm)... Q4 SC Last administered on 07/22/17 13:06; Admin Dose 2 UNIT; Start 07/19/17 at 05:00 Enoxaparin Sodium (Lovenox) 95 mg Q12 SC Last administered on 07/22/17 09:10; Admin Dose 95 MG; Start 07/19/17 at 09:30 Aspirin (Aspirin) 81 mg DAILY PO Last administered on 07/22/17 09:07; Admin Dose 81 MG; Start 07/20/17 at 09:00 Carvedilol (Coreg) 6.25 mg BID PO Last administered on 07/22/17 09:07; Admin Dose 6.25 MG; Start 07/21/17 at 13:30 Valsartan (Diovan) 80 mg BID PO Last administered on 07/22/17 09:07; Admin Dose 80 MG; Start 07/21/17 at 13:30 Levofloxacin (Levaquin) 750 mg DAILY@06 PO Last administered on 07/22/17 05:07 ; Admin Dose 750 MG; Start 07/21/17 at 16:00; Stop 07/24/17 at 06:01 LEONOR VELASQUEZ MD Jul 22, 2017 13:50
[2017-07-22] MEDS: DOCUSATE SODIUM 10 MG/ML (10ML CUP) NGT SCH (22:00)
[2017-07-23] VITALS (36 sets, daily range): BP systolic 86–175; BP diastolic 58–122; PULSE 68–133; RESP 6–37
[2017-07-23] MEDS: LORAZEPAM 2 MG INJ IV PRN ×2 (00:20→13:27)
[2017-07-23] MEDS: PROPOFOL 100 ML IV SCH ×2 (01:33→05:00)
[2017-07-23] MEDS: Insulin NOVOLOG SS MILD Algorithm (NPO/TPN/ENTERAL FEEDS) SC SCH ×6 (01:37→21:31)
[2017-07-23] MEDS: ACCU-CHEK XX SCH (02:00)
[2017-07-23] MEDS ORDERED: hydrALAzine 20 MG INJ IV PRN (04:30)
[2017-07-23] MEDS: LEVOFLOXACIN 750 MG TABLET PO SCH (05:23)
[2017-07-23 05:32] LABS: BASOPHILS % 0.5 % (0.0-2.0); EOSINOPHILS # 0.2 10^3/ul (0.0-0.5); EOSINOPHILS % 1.9 % (0.0-7.0); HEMATOCRIT 41.9 % (42.0-52.0); HEMOGLOBIN 14.2 g/dl (14.0-18.0); LYMPHOCYTES # 2.3 10^3/ul (0.8-2.9); LYMPHOCYTES % 28.9 % (15.0-51.0); MEAN CORPUSCULAR HEMOGLOBIN 31.6 pg (29.0-33.0); MEAN CORPUSCULAR HGB CONC 33.9 g/dl (32.0-37.0); MEAN CORPUSCULAR VOLUME 93.1 fl (82.0-101.0); MEAN PLATELET VOLUME 11.8 fl (7.4-10.4); MONOCYTE # 0.7 10^3/ul (0.3-0.9); MONOCYTES % 8.8 % (0.0-11.0); NEUTROPHIL # 4.7 10^3/ul (1.6-7.5); NEUTROPHILS % 59.6 % (39.0-77.0); PLATELET COUNT 177 10^3/UL (140-415); RED CELL DISTRIBUTION WIDTH 12.7 % (11.5-14.5); WHITE BLOOD COUNT 7.9 10^3/ul (4.8-10.8)
[2017-07-23 05:56] LABS: CALCIUM 9.1 mg/dl (8.4-10.2); CREATININE 0.9 mg/dl (0.61-1.24); POTASSIUM 3.4 mmol/L (3.5-5.1)
[2017-07-23] MEDS: FUROSEMIDE 40 MG INJ IV SCH (06:34)
--- NOTE | 2017-07-23 07:36 | RADRPT ---
PROCEDURE: Chest 1 views. CLINICAL INDICATION: Shortness of breath. TECHNIQUE: AP views of the chest was obtained. COMPARISON: DR WONG 07/21/2017 FINDINGS: The heart is large. Endotracheal and nasogastric tubes are stable and appear in grossly appropriate location. Central pulmonary vascular congestion appears to have decreased. Scattered atelectasis is identified in the bilateral lower lobes and lingula. No consolidations are identified. No pneumotho rax is seen. Osseous structures are intact. IMPRESSION: Cardiomegaly . Interval decrease in central pulmonary vascular congestion. Scattered atelectasis in the bilateral lower lobes and lingula. RPTAT: AA .Joe Cruz MD, MD Date Time Electronically viewed and signed by .Joe Cruz MD, on 07/23/2017 07:36 .P/
[2017-07-23] MEDS: CLOPIDOGREL 75 MG TAB PO SCH (08:27)
[2017-07-23] MEDS: DOCUSATE SODIUM 10 MG/ML (10ML CUP) NGT SCH ×2 (08:27→21:00)
[2017-07-23] MEDS: ASPIRIN 81 MG TAB PO SCH (08:27)
[2017-07-23] MEDS: ATORVASTATIN 20 MG TAB PO SCH (08:27)
[2017-07-23] MEDS: VALSARTAN 80 MG TAB PO SCH ×2 (08:28→21:00)
[2017-07-23] MEDS: INSULIN GLARGINE [LANtus] 3 ML PEN SC SCH (08:31)
[2017-07-23] MEDS: ENOXAPARIN 100 MG/ML SYG SC SCH ×2 (08:32→21:31)
[2017-07-23] MEDS: FAMOTIDINE 20 MG INJ IV SCH (08:42)
[2017-07-23 10:23] LABS: Allen Test ACCEPTAB; Arterial Base Excess 3.1 mmol/L (-3.0-3); Arterial COHb 0.3 % (0.0-3.0); Arterial Fraction of Oxyhgb 95.6 % (93.0-99.0); Arterial HCO3 27.5 mmol/L (22.0-26.0); Arterial MetHb 0.2 % (0.0-1.5); Arterial Total Hemglobin 15.5 g/dl (12.0-18.0); Blood Gas PS 10; MODE VENT - CPAP
--- NOTE | 2017-07-23 10:55 | CONS ---
Date/Time of Note Date/Time of Note DATE: 07/23/17 TIME: 10:50 Consult Date/Type/Reason Admit Date/Time Jul 19, 2017 at 00:28 Initial Consult Date Type of Consultation: Pulmonary Subjective Patient awake alert this morning follows simple commands. Placed on CPAP. Tolerating CPAP trial will likely be extubated. Objective Vital Signs Date Time Temp Pulse Resp B/P Pulse Ox O2 Delivery O2 Flow Rate FiO2 07/23/17 08:30 68 15 111/58 100 Mechanical Ventilator 07/23/17 07:30 98.3 07/23/17 06:08 30 Intake and Output 07/22/17 07/22/17 07/23/17 15:00 23:00 07:00 Intake Total 162 ml 366 ml 587 ml Output Total 700 ml 725 ml 600 ml Balance -538 ml -359 ml -13 ml Exam HEENT: Dry mucous membrane is pupils equal reactive to light orally intubated Cardiac exam S1-S2 1/6 ejection systolic murmur Respiratory diminished air entry both lung bases but no rales. Abdomen obese soft nontender no guarding rebound Extremities no cyanosis clubbing or edema Neurology generalized weakness but no focal deficits Results/Medications Result Diagram: 07/23/17 0515 07/23/17 0515 Results 24 hrs Laboratory Tests Test 07/22/17 12:41 07/22/17 18:17 07/22/17 22:42 07/23/17 01:34 Bedside Glucose 183 129 198 199 Test 07/23/17 05:15 07/23/17 05:28 07/23/17 08:29 07/23/17 10:13 White Blood Count 7.9 Red Blood Count 4.50 L Hemoglobin 14.2 Hematocrit 41.9 L Mean Corpuscular Volume 93.1 Mean Corpuscular Hemoglobin 31.6 Mean Corpuscular Hemoglobin Concent 33.9 Red Cell Distribution Width 12.7 Platelet Count 177 Mean Platelet Volume 11.8 H Neutrophils % 59.6 Lymphocytes % 28.9 Monocytes % 8.8 Eosinophils % 1.9 Basophils % 0.5 Nucleated Red Blood Cells % 0.0 Neutrophils # 4.7 Lymphocytes # 2.3 Monocytes # 0.7 Eosinophils # 0.2 Basophils # 0.0 Nucleated Red Blood Cells # 0.0 Sodium Level 143 Potassium Level 3.4 L Chloride Level 106 Carbon Dioxide Level 27 Anion Gap 13 Blood Urea Nitrogen 30 H Creatinine 0.90 Glucose Level 255 H Calcium Level 9.1 Bedside Glucose 220 200 Blood Gas Specimen Source Blood arterial Arterial Blood Date Drawn 07/23/2017 10:15:15 AM Arterial Blood pH (Temp corrected) 7.442 Arterial Blood pCO2 (Temp correct) 41.2 Arterial Blood pO2 (Temp corrected) 80.5 Arterial Blood HCO3 27.5 H Arterial Blood Base Excess 3.1 H Arterial Blood Oxygen Saturation 96.1 Jean Test ACCEPTAB Arterial Blood Gas Puncture Site Right Radial Arterial Blood Carboxyhemoglobin 0.3 Arterial Blood Methemoglobin 0.2 Blood Gas A-a O2 Differential 85.0 H Oxyhemoglobin Percent 95.6 Total Hemoglobin 15.5 Blood Gas Temperature 37.0 Blood Gas Actual Respiration Rate 34 Blood Gas Modality VENT - CPAP FiO2 30.0 Blood Gas Low PEEP Setting 5.0 Blood Gas Pressure Support 10 Blood Gas Notified Whom TM Blood Gas Notified Time 07/23/2017 10:22:59 AM Medications Current Medications Ondansetron HCl (Zofran Inj) 4 mg Q6H PRN IV NAUSEA AND/OR VOMITING; Start at 01:30 Acetaminophen (Tylenol Liquid) 650 mg Q6H PRN PO PAIN LEVEL 1-3 OR FEVER Last administered on 07/19/17 18:53; Admin Dose 650 MG; Start 07/19/17 at 01:30 Morphine Sulfate (morphine) 2 mg Q4H PRN IV PAIN LEVEL 7-10 Last administered on 07/22/17 09:28; Admin Dose 2 MG; Start 07/19/17 at 01:30 Lorazepam (Ativan) 1 mg Q2H PRN IV ANXIETY Last administered on 07/23/17 00:20 ; Admin Dose 1 MG; Start 07/19/17 at 01:30 Famotidine (Pepcid Iv) 20 mg Q12 IV Last administered on 07/23/17 08:42; Admin Dose 20 MG; Start 07/19/17 at 09:00 Diagnostic Test (Pha) (Accu-Chek) 1 ea 02 XX Last administered on 07/22/17 01: 09; Admin Dose 1 EA; Start 07/19/17 at 02:00 Insulin Glargine (Lantus) 15 unit DAILY@08 SC Last administered on 07/23/17 08 :31; Admin Dose 15 UNIT; Start 07/19/17 at 08:00 Atorvastatin Calcium (Lipitor) 20 mg DAILY PO Last administered on 07/23/17 08 :27; Admin Dose 20 MG; Start 07/19/17 at 09:00 Clopidogrel Bisulfate (plaVIX) 75 mg DAILY PO Last administered on 07/23/17 08 :27; Admin Dose 75 MG; Start 07/19/17 at 09:00 Miscellaneous Information 1 ea NOTE XX ; Start 07/19/17 at 02:00 Glucose (Glutose) 15 gm Q15M PRN PO DECREASED GLUCOSE; Start 07/19/17 at 02:00 Glucose (Glutose) 22.5 gm Q15M PRN PO DECREASED GLUCOSE; Start 07/19/17 at 02: 00 Dextrose (D50w Syringe) 25 ml Q15M PRN IV DECREASED GLUCOSE; Start 07/19/17 at 02:00 Dextrose (D50w Syringe) 50 ml Q15M PRN IV DECREASED GLUCOSE; Start 07/19/17 at 02:00 Glucagon (Glucagen) 1 mg Q15M PRN IM DECREASED GLUCOSE; Start 07/19/17 at 02:00 Glucose (Glutose) 15 gm Q15M PRN BUCCAL DECREASED GLUCOSE; Start 07/19/17 at 02 :00 Insulin Aspart (Novolog Insulin Pen) (Adult SC Insulin - Mild Algorithm)... Q4 SC Last administered on 07/23/17 08:32; Admin Dose 2 UNIT; Start 07/19/17 at 05:00 Enoxaparin Sodium (Lovenox) 95 mg Q12 SC Last administered on 07/23/17 08:32; Admin Dose 95 MG; Start 07/19/17 at 09:30 Aspirin (Aspirin) 81 mg DAILY PO Last administered on 07/23/17 08:27; Admin Dose 81 MG; Start 07/20/17 at 09:00 Carvedilol (Coreg) 6.25 mg BID PO Last administered on 07/22/17 22:00; Admin Dose 6.25 MG; Start 07/21/17 at 13:30 Valsartan (Diovan) 80 mg BID PO Last administered on 07/22/17 22:00; Admin Dose 80 MG; Start 07/21/17 at 13:30 Levofloxacin (Levaquin) 750 mg DAILY@06 PO Last administered on 07/23/17 05:23 ; Admin Dose 750 MG; Start 07/21/17 at 16:00; Stop 07/24/17 at 06:01 Docusate Sodium (Colace Liquid Cup) 100 mg BID NGT Last administered on 08:27; Admin Dose 100 MG; Start 07/22/17 at 21:00 Hydralazine HCl (Apresoline) 10 mg Q6H PRN IV For SBP > 160; Start 07/23/17 at 04:30 Assessment/Plan Chief Complaint/Hosp Course Assessment 1. Hypoxemic respiratory failure 2. Resolving encephalopathy 3. Acute on chronic systolic heart failure Plan 1. CPAP trial with extubation 2. Aspiration precautions and speech therapy eval in a.m. 3. Continue cardiac recommendations gentle diuresis if tolerated 4. PT eval and encourage out of bed once extubated Case discussed with family at bedside. Problems: LIANA RUBIO MD, [facility] Jul 23, 2017 10:55
[2017-07-23] MEDS: morphine 2 MG INJ IV PRN (11:55)
[2017-07-23] MEDS ORDERED: ALPRAZOLAM 0.25 MG TAB PO PRN (12:00)
--- NOTE | 2017-07-23 13:50 | CONS ---
Date/Time of Note Date/Time of Note DATE: 07/23/17 TIME: 13:47 Assessment/Plan Assessment/Plan Chief Complaint/Hosp Course Assessment: Acute on chronic systolic heart failure - improving with diuresis Ischemic cardiomyopathy - LVEF 40% on current echocardiogram NSTEMI - likely type 2, conservative management Coronary artery disease - multiple coronary stents, most recently in 2012 Hypertension - blood pressure elevated Acute hypoxic and hypercarbic respiratory failure - improved and extubated 2016 Possible pneumonia - on antibiotics Possible chronic obstructive pulmonary disease - former smoker Diabetes mellitus - per primary team Reported medication noncompliance Recommendations: -decrease Lasix 40mg IV daily -continue carvedilol 6.25mg BID and valsartan 80mg BID, up titrate as needed/ tolerated -continue aspirin at 81mg daily and clopidogrel 75mg daily -continue atorvastatin 20mg daily -echocardiogram showed LVEF 40% with global hypokinesis Problems: Consultation Date/Type/Reason Admit Date/Time Jul 19, 2017 at 00:28 Type of Consultation: Cardiology 24 HR Interval Summary Free Text/Dictation Extubated today. Tolerating respiratory chacon, but agitated and confused. Detailed Summary Additional Comments Unable to obtain review of systems, patient with altered mental status. Exam/Review of Systems Vital Signs Vitals Vital Signs Date Time Temp Pulse Resp B/P Pulse Ox O2 Delivery O2 Flow Rate FiO2 07/23/17 12:11 Nasal Cannula 3.0 07/23/17 12:00 89 07/23/17 11:00 15 174/82 98 07/23/17 09:20 30 07/23/17 07:30 98.3 Intake and Output 07/22/17 07/22/17 07/23/17 15:00 23:00 07:00 Intake Total 162 ml 366 ml 607 ml Output Total 700 ml 725 ml 600 ml Balance -538 ml -359 ml 7 ml Exam Constitutional: alert, confused Psych: No nl mood/affect Head: atraumatic, normocephalic Eyes: nl conjunctiva, nl lids ENMT: intubated Respiratory: diminished breath sounds Cardiovascular: regular rate and rhythm Gastrointestinal: non-tender, soft Musculoskeletal: nl extremities to inspection Extremities: No clubbing, No cyanosis, No edema Neurological: No nl mental status, No nl speech Results Result Diagram: 07/23/17 0515 07/23/17 0515 Results 24 hrs Laboratory Tests Test 07/22/17 18:17 07/22/17 22:42 07/23/17 01:34 07/23/17 05:15 Bedside Glucose 129 198 199 White Blood Count 7.9 Red Blood Count 4.50 L Hemoglobin 14.2 Hematocrit 41.9 L Mean Corpuscular Volume 93.1 Mean Corpuscular Hemoglobin 31.6 Mean Corpuscular Hemoglobin Concent 33.9 Red Cell Distribution Width 12.7 Platelet Count 177 Mean Platelet Volume 11.8 H Neutrophils % 59.6 Lymphocytes % 28.9 Monocytes % 8.8 Eosinophils % 1.9 Basophils % 0.5 Nucleated Red Blood Cells % 0.0 Neutrophils # 4.7 Lymphocytes # 2.3 Monocytes # 0.7 Eosinophils # 0.2 Basophils # 0.0 Nucleated Red Blood Cells # 0.0 Sodium Level 143 Potassium Level 3.4 L Chloride Level 106 Carbon Dioxide Level 27 Anion Gap 13 Blood Urea Nitrogen 30 H Creatinine 0.90 Glucose Level 255 H Calcium Level 9.1 Test 07/23/17 05:28 07/23/17 08:29 07/23/17 10:13 07/23/17 13:38 Bedside Glucose 220 200 179 Blood Gas Specimen Source Blood arterial Arterial Blood Date Drawn 07/23/2017 10:15:15 AM Arterial Blood pH (Temp corrected) 7.442 Arterial Blood pCO2 (Temp correct) 41.2 Arterial Blood pO2 (Temp corrected) 80.5 Arterial Blood HCO3 27.5 H Arterial Blood Base Excess 3.1 H Arterial Blood Oxygen Saturation 96.1 Jean Test ACCEPTAB Arterial Blood Gas Puncture Site Right Radial Arterial Blood Carboxyhemoglobin 0.3 Arterial Blood Methemoglobin 0.2 Blood Gas A-a O2 Differential 85.0 H Oxyhemoglobin Percent 95.6 Total Hemoglobin 15.5 Blood Gas Temperature 37.0 Blood Gas Actual Respiration Rate 34 Blood Gas Modality VENT - CPAP FiO2 30.0 Blood Gas Low PEEP Setting 5.0 Blood Gas Pressure Support 10 Blood Gas Notified Whom TM Blood Gas Notified Time 07/23/2017 10:22:59 AM Medications Medications Current Medications Ondansetron HCl (Zofran Inj) 4 mg Q6H PRN IV NAUSEA AND/OR VOMITING; Start at 01:30 Acetaminophen (Tylenol Liquid) 650 mg Q6H PRN PO PAIN LEVEL 1-3 OR FEVER Last administered on 07/19/17t 18:53; Admin Dose 650 MG; Start 07/19/17 at 01:30 Morphine Sulfate (morphine) 2 mg Q4H PRN IV PAIN LEVEL 7-10 Last administered on 07/23/17 11:55; Admin Dose 2 MG; Start 07/19/17 at 01:30 Lorazepam (Ativan) 1 mg Q2H PRN IV ANXIETY Last administered on 07/23/17 13:27 ; Admin Dose 1 MG; Start 07/19/17 at 01:30 Famotidine (Pepcid Iv) 20 mg Q12 IV Last administered on 07/23/17 08:42; Admin Dose 20 MG; Start 07/19/17 at 09:00 Diagnostic Test (Pha) (Accu-Chek) 1 ea 02 XX Last administered on 07/22/17 01: 09; Admin Dose 1 EA; Start 07/19/17 at 02:00 Insulin Glargine (Lantus) 15 unit DAILY@08 SC Last administered on 07/23/17 08 :31; Admin Dose 15 UNIT; Start 07/19/17 at 08:00 Atorvastatin Calcium (Lipitor) 20 mg DAILY PO Last administered on 07/23/17 08 :27; Admin Dose 20 MG; Start 07/19/17 at 09:00 Clopidogrel Bisulfate (plaVIX) 75 mg DAILY PO Last administered on 07/23/17 08 :27; Admin Dose 75 MG; Start 07/19/17 at 09:00 Miscellaneous Information 1 ea NOTE XX ; Start 07/19/17 at 02:00 Glucose (Glutose) 15 gm Q15M PRN PO DECREASED GLUCOSE; Start 07/19/17 at 02:00 Glucose (Glutose) 22.5 gm Q15M PRN PO DECREASED GLUCOSE; Start 07/19/17 at 02: 00 Dextrose (D50w Syringe) 25 ml Q15M PRN IV DECREASED GLUCOSE; Start 07/19/17 at 02:00 Dextrose (D50w Syringe) 50 ml Q15M PRN IV DECREASED GLUCOSE; Start 07/19/17 at 02:00 Glucagon (Glucagen) 1 mg Q15M PRN IM DECREASED GLUCOSE; Start 07/19/17 at 02:00 Glucose (Glutose) 15 gm Q15M PRN BUCCAL DECREASED GLUCOSE; Start 07/19/17 at 02 :00 Insulin Aspart (Novolog Insulin Pen) (Adult SC Insulin - Mild Algorithm)... Q4 SC Last administered on 07/23/17 13:40; Admin Dose 1 UNIT; Start 07/19/17 at 05:00 Enoxaparin Sodium (Lovenox) 95 mg Q12 SC Last administered on 07/23/17 08:32; Admin Dose 95 MG; Start 07/19/17 at 09:30 Aspirin (Aspirin) 81 mg DAILY PO Last administered on 07/23/17 08:27; Admin Dose 81 MG; Start 07/20/17 at 09:00 Carvedilol (Coreg) 6.25 mg BID PO Last administered on 07/22/17 22:00; Admin Dose 6.25 MG; Start 07/21/17 at 13:30 Valsartan (Diovan) 80 mg BID PO Last administered on 07/22/17 22:00; Admin Dose 80 MG; Start 07/21/17 at 13:30 Levofloxacin (Levaquin) 750 mg DAILY@06 PO Last administered on 07/23/17 05:23 ; Admin Dose 750 MG; Start 07/21/17 at 16:00; Stop 07/24/17 at 06:01 Docusate Sodium (Colace Liquid Cup) 100 mg BID NGT Last administered on 08:27; Admin Dose 100 MG; Start 07/22/17 at 21:00 Hydralazine HCl (Apresoline) 10 mg Q6H PRN IV For SBP > 160 Last administered on 07/23/17 10:59; Admin Dose 10 MG; Start 07/23/17 at 04:30 Alprazolam (Xanax) 0.5 mg Q6H PRN PO ANXIETY Last administered on 07/23/17 12: 55; Admin Dose 0.5 MG; Start 07/23/17 at 12:00 LEONOR VELASQUEZ MD Jul 23, 2017 13:50
[2017-07-23] MEDS ORDERED: POTASSIUM CHLORIDE (SR) 20 MEQ TAB PO STA (14:04)
[2017-07-23] MEDS ORDERED: HALOPERIDOL 5 MG INJ ONE (14:12)
[2017-07-23] MEDS ORDERED: HALOPERIDOL 5 MG INJ IV ONE (14:30)
--- NOTE | 2017-07-23 16:43 | PN ---
Date/Time of Note Date/Time of Note DATE: 07/23/17 TIME: 16:42 Assessment/Plan VTE Prophylaxis VTE Prophylaxis Intervention: SCD's Lines/Catheters IV Catheter Type (from Nrsg): Peripheral IV Urinary Cath still in place: Yes Reason Cath still needed: other (indicate) (dc requested) Assessment/Plan Assessment/Plan Assessment/Plan 62-year-old male with chronic systolic HF (EF 30%), CAD sp PCI, HTN, DM presented with SOB most likely acute on chronic systolic HF with concern for possible underlying respiratory infection with resultant NSTEMI 2/2 demand. #acute on chronic CHF -TTE with EF 40% -cont diuresis (Pt currently net -7.6L) -extubated today -ARB restarted at lower dose by cards; bb also resumed #possible underlying pna -procalcitonin ordered though suspect this is a send out lab -sputum culture with NRF-->narrow Abx to CAP treatment with levoflox. 7 days total antimicrobials (07.19-->) #NSTEMI likely 2/2 demand -cardiology on consult #DM2: insulin + SSI a1c 10s, CDE consult transfer to tele in AM if does ok overnight critical care time: 30 minutes Subjective 24 Hr Interval Summary Free Text/Dictation Pt seen this AM while on PST Exam/Review of Systems Vital Signs Vitals Vital Signs Date Time Temp Pulse Resp B/P Pulse Ox O2 Delivery O2 Flow Rate FiO2 07/23/17 16:10 Nasal Cannula 3.0 07/23/17 16:00 105 07/23/17 15:30 16 161/96 98 07/23/17 12:00 98.8 07/23/17 09:20 30 Intake and Output 07/22/17 07/22/17 07/23/17 15:00 23:00 07:00 Intake Total 162 ml 366 ml 607 ml Output Total 700 ml 725 ml 600 ml Balance -538 ml -359 ml 7 ml Exam nad coarse breath sounds no mrg abd soft no rashes Results Result Diagram: 07/23/17 0515 07/23/17 0515 Results 24 hrs Laboratory Tests Test 07/22/17 18:17 07/22/17 22:42 07/23/17 01:34 07/23/17 05:15 Bedside Glucose 129 198 199 White Blood Count 7.9 Red Blood Count 4.50 L Hemoglobin 14.2 Hematocrit 41.9 L Mean Corpuscular Volume 93.1 Mean Corpuscular Hemoglobin 31.6 Mean Corpuscular Hemoglobin Concent 33.9 Red Cell Distribution Width 12.7 Platelet Count 177 Mean Platelet Volume 11.8 H Neutrophils % 59.6 Lymphocytes % 28.9 Monocytes % 8.8 Eosinophils % 1.9 Basophils % 0.5 Nucleated Red Blood Cells % 0.0 Neutrophils # 4.7 Lymphocytes # 2.3 Monocytes # 0.7 Eosinophils # 0.2 Basophils # 0.0 Nucleated Red Blood Cells # 0.0 Sodium Level 143 Potassium Level 3.4 L Chloride Level 106 Carbon Dioxide Level 27 Anion Gap 13 Blood Urea Nitrogen 30 H Creatinine 0.90 Glucose Level 255 H Calcium Level 9.1 Test 07/23/17 05:28 07/23/17 08:29 07/23/17 10:13 07/23/17 13:38 Bedside Glucose 220 200 179 Blood Gas Specimen Source Blood arterial Arterial Blood Date Drawn 07/23/2017 10:15:15 AM Arterial Blood pH (Temp corrected) 7.442 Arterial Blood pCO2 (Temp correct) 41.2 Arterial Blood pO2 (Temp corrected) 80.5 Arterial Blood HCO3 27.5 H Arterial Blood Base Excess 3.1 H Arterial Blood Oxygen Saturation 96.1 Jean Test ACCEPTAB Arterial Blood Gas Puncture Site Right Radial Arterial Blood Carboxyhemoglobin 0.3 Arterial Blood Methemoglobin 0.2 Blood Gas A-a O2 Differential 85.0 H Oxyhemoglobin Percent 95.6 Total Hemoglobin 15.5 Blood Gas Temperature 37.0 Blood Gas Actual Respiration Rate 34 Blood Gas Modality VENT - CPAP FiO2 30.0 Blood Gas Low PEEP Setting 5.0 Blood Gas Pressure Support 10 Blood Gas Notified Whom TM Blood Gas Notified Time 07/23/2017 10:22:59 AM Medications Medications Current Medications Ondansetron HCl (Zofran Inj) 4 mg Q6H PRN IV NAUSEA AND/OR VOMITING; Start at 01:30 Acetaminophen (Tylenol Liquid) 650 mg Q6H PRN PO PAIN LEVEL 1-3 OR FEVER Last administered on 07/19/17 18:53; Admin Dose 650 MG; Start 07/19/17 at 01:30 Diagnostic Test (Pha) (Accu-Chek) 1 ea 02 XX Last administered on 07/22/17 01: 09; Admin Dose 1 EA; Start 07/19/17 at 02:00 Insulin Glargine (Lantus) 15 unit DAILY@08 SC Last administered on 07/23/17 08 :31; Admin Dose 15 UNIT; Start 07/19/17 at 08:00 Atorvastatin Calcium (Lipitor) 20 mg DAILY PO Last administered on 07/23/17 08 :27; Admin Dose 20 MG; Start 07/19/17 at 09:00 Clopidogrel Bisulfate (plaVIX) 75 mg DAILY PO Last administered on 07/23/17 08 :27; Admin Dose 75 MG; Start 07/19/17 at 09:00 Miscellaneous Information 1 ea NOTE XX ; Start 07/19/17 at 02:00 Glucose (Glutose) 15 gm Q15M PRN PO DECREASED GLUCOSE; Start 07/19/17 at 02:00 Glucose (Glutose) 22.5 gm Q15M PRN PO DECREASED GLUCOSE; Start 07/19/17 at 02: 00 Dextrose (D50w Syringe) 25 ml Q15M PRN IV DECREASED GLUCOSE; Start 07/19/17 at 02:00 Dextrose (D50w Syringe) 50 ml Q15M PRN IV DECREASED GLUCOSE; Start 07/19/17 at 02:00 Glucagon (Glucagen) 1 mg Q15M PRN IM DECREASED GLUCOSE; Start 07/19/17 at 02:00 Glucose (Glutose) 15 gm Q15M PRN BUCCAL DECREASED GLUCOSE; Start 07/19/17 at 02 :00 Insulin Aspart (Novolog Insulin Pen) (Adult SC Insulin - Mild Algorithm)... Q4 SC Last administered on 07/23/17 13:40; Admin Dose 1 UNIT; Start 07/19/17 at 05:00 Enoxaparin Sodium (Lovenox) 95 mg Q12 SC Last administered on 07/23/17 08:32; Admin Dose 95 MG; Start 07/19/17 at 09:30 Aspirin (Aspirin) 81 mg DAILY PO Last administered on 07/23/17 08:27; Admin Dose 81 MG; Start 07/20/17 at 09:00 Carvedilol (Coreg) 6.25 mg BID PO Last administered on 07/22/17 22:00; Admin Dose 6.25 MG; Start 07/21/17 at 13:30 Valsartan (Diovan) 80 mg BID PO Last administered on 07/22/17 22:00; Admin Dose 80 MG; Start 07/21/17 at 13:30 Levofloxacin (Levaquin) 750 mg DAILY@06 PO Last administered on 07/23/17 05:23 ; Admin Dose 750 MG; Start 07/21/17 at 16:00; Stop 07/24/17 at 06:01 Docusate Sodium (Colace Liquid Cup) 100 mg BID NGT Last administered on 08:27; Admin Dose 100 MG; Start 07/22/17 at 21:00 Furosemide (Lasix) 40 mg DAILY IV ; Start 07/24/17 at 09:00 KAYCEE SWARTZ MD Jul 23, 2017 16:43 KAYCEE SWARTZ MD Jul 23, 2017 16:43
[2017-07-23] MEDS ORDERED: LORAZEPAM 2 MG INJ ONE (20:20)
[2017-07-23] MEDS ORDERED: HALOPERIDOL 5 MG INJ IM ONE ×2 (20:30→21:32)
[2017-07-23] MEDS ORDERED: DIPHENHYDRAMINE 50 MG INJ ONE (20:44)
[2017-07-23] MEDS ORDERED: DIPHENHYDRAMINE 50 MG INJ IV ONE (21:33)
[2017-07-23] MEDS ORDERED: LORAZEPAM 2 MG INJ IV ONE ×2 (21:33→22:00)
[2017-07-23] MEDS ORDERED: DIPHENHYDRAMINE 50 MG INJ IV PRN (22:00)
[2017-07-23] MEDS ORDERED: LABETALOL HCL 20MG INJ IV ONE (22:00)
[2017-07-23] MEDS ORDERED: LABETALOL HCL 20MG INJ ONE (22:01)
[2017-07-24] VITALS (24 sets, daily range): BP systolic 92–190; BP diastolic 52–130; PULSE 84–119; RESP 0–39
[2017-07-24 00:32] LABS: AADO2 Arterial 331.1 mmHg (7.0-24.0); Arterial Base Excess -1.6 mmol/L (-3.0-3); Arterial COHb 0.1 % (0.0-3.0); Arterial Fraction of Oxyhgb 93.2 % (93.0-99.0); Arterial HCO3 21.6 mmol/L (22.0-26.0); Arterial MetHb 0.1 % (0.0-1.5); Arterial Total Hemglobin 16.9 g/dl (12.0-18.0); MODE MASK - SIMPLE
[2017-07-24] MEDS: Insulin NOVOLOG SS MILD Algorithm (NPO/TPN/ENTERAL FEEDS) SC SCH ×5 (01:36→17:30)
[2017-07-24] MEDS ORDERED: morphine 4 MG/ML VIAL IV ONE (01:58)
[2017-07-24] MEDS ORDERED: LORAZEPAM 2 MG INJ IV ONE (02:00)
[2017-07-24] MEDS ORDERED: HALOPERIDOL 5 MG INJ IM ONE (02:00)
[2017-07-24] MEDS: ACCU-CHEK XX SCH (02:56)
[2017-07-24] MEDS: LEVOFLOXACIN 750 MG TABLET PO SCH (06:00)
[2017-07-24 06:37] LABS: BASOPHIL # 0.1 10^3/ul (0.0-0.1); BASOPHILS % 0.5 % (0.0-2.0); EOSINOPHILS % 0.2 % (0.0-7.0); HEMOGLOBIN 16.2 g/dl (14.0-18.0); LYMPHOCYTES # 2.2 10^3/ul (0.8-2.9); MEAN CORPUSCULAR HEMOGLOBIN 31.2 pg (29.0-33.0); MEAN CORPUSCULAR HGB CONC 33.8 g/dl (32.0-37.0); MEAN CORPUSCULAR VOLUME 92.3 fl (82.0-101.0); MEAN PLATELET VOLUME 12.2 fl (7.4-10.4); MONOCYTE # 1.1 10^3/ul (0.3-0.9); MONOCYTES % 11.1 % (0.0-11.0); NEUTROPHIL # 6.7 10^3/ul (1.6-7.5); NEUTROPHILS % 65.9 % (39.0-77.0); PLATELET COUNT 186 10^3/UL (140-415); RED CELL DISTRIBUTION WIDTH 12.4 % (11.5-14.5); WHITE BLOOD COUNT 10.2 10^3/ul (4.8-10.8)
[2017-07-24 07:16] LABS: CALCIUM 9.8 mg/dl (8.4-10.2); CREATININE 0.83 mg/dl (0.61-1.24); POTASSIUM 3.6 mmol/L (3.5-5.1)
[2017-07-24] MEDS: CLOPIDOGREL 75 MG TAB PO SCH (07:41)
[2017-07-24] MEDS: VALSARTAN 80 MG TAB PO SCH ×2 (07:41→23:00)
[2017-07-24] MEDS: ENOXAPARIN 100 MG/ML SYG SC SCH ×2 (07:58→21:51)
[2017-07-24] MEDS: FUROSEMIDE 40 MG INJ IV SCH (08:13)
[2017-07-24 08:14] LABS: AADO2 Arterial 579.1 mmHg (7.0-24.0); Allen Test ACCEPTAB; Arterial Base Excess -0.9 mmol/L (-3.0-3); Arterial COHb 0.2 % (0.0-3.0); Arterial Fraction of Oxyhgb 96.9 % (93.0-99.0); Arterial HCO3 23.1 mmol/L (22.0-26.0); Arterial MetHb 0.1 % (0.0-1.5); Arterial Total Hemglobin 16.8 g/dl (12.0-18.0); MODE MASK - NRB
--- NOTE | 2017-07-24 09:06 | RADRPT ---
PROCEDURE: XR Chest. CLINICAL INDICATION: Shortness of breath. TECHNIQUE: Single frontal view. COMPARISON: 07/23/2017. FINDINGS: The endotracheal tube and nasogastric tube have been removed. There is mild atelectasis at the lung bases. The lungs are otherwise clear. The heart is enlarged. There is no pleural effusion. There is no pneumothorax. IMPRESSION: 1. Endotracheal tube and nasogastric tube removed. 2. Mild atelectasis at the lung bases. 3. Cardiomegaly. RPTAT: QQ .Billy Maciel MD, MD Date Time Electronically viewed and signed by .Billy Maciel MD, MD on 07/24/2017 09:06 .R/
[2017-07-24] MEDS: INSULIN GLARGINE [LANtus] 3 ML PEN SC SCH (11:03)
[2017-07-24] MEDS: ATORVASTATIN 20 MG TAB PO SCH (11:13)
[2017-07-24] MEDS: DOCUSATE SODIUM 10 MG/ML (10ML CUP) NGT SCH ×2 (11:13→21:49)
[2017-07-24] MEDS: ASPIRIN 81 MG TAB PO SCH (11:13)
--- NOTE | 2017-07-24 14:47 | PN ---
Date/Time of Note Date/Time of Note DATE: 07/24/17 TIME: 14:36 Assessment/Plan VTE Prophylaxis VTE Prophylaxis Intervention: LMWH Lines/Catheters IV Catheter Type (from Nrs): Peripheral IV Urinary Cath still in place: No Assessment/Plan Assessment/Plan 1. Acute respiratory failure, due to pulmonary edema, improving, extubated on 2. Congestive heart failure, acute on chronic, systolic, on coreg, diovan, and iv lasix 3. Ischemic cardiomyopathy 4. NSTEMI likely 2/2 demand, follow up with cardiology 5. DM2: insulin + ISS 6. Hypertension, controlled 7. Metabolic encephalopathy, acute, needs a sitter 8. DVT prophylaxis: lovenox 9. Chart reviewed, discussed with staff and sitter, ok to transfer to [facility] with a sitter 10. Critical care time: 40 minutes Exam/Review of Systems Vital Signs Vitals Vital Signs Date Time Temp Pulse Resp B/P Pulse Ox O2 Delivery O2 Flow Rate FiO2 07/24/17 12:00 94 32 128/74 95 07/24/17 11:00 Nasal Cannula 07/24/17 09:48 5.0 07/24/17 08:00 98.4 07/24/17 03:33 100 Intake and Output 07/23/17 07/23/17 07/24/17 15:00 23:00 07:00 Intake Total 20 ml 0 ml Output Total 650 ml 160 ml 350 ml Balance -630 ml -160 ml -350 ml Exam Constitutional: alert, obese, well developed Head: atraumatic, normocephalic Eyes: EOMI, PERRL, nl conjunctiva ENMT: mucosa pink and moist, nl external ears & nose, nl lips & teeth, nl nasal mucosa & septum Neck: non-tender, supple Respiratory: clear to auscultation, diminished breath sounds Cardiovascular: nl pulses, regular rate and rhythm, No S3, No S4, No bruits, No diastolic murmur, No edema, No gallop, No irregular rhythm, No jugular venous distention (JVD), No murmurs/extra sounds, No other, No rub, No systolic murmur Gastrointestinal: nl liver, spleen, non-tender, soft, No ascites, No bowel sounds, No distended, No firm, No hepatomegaly, No mass , No other, No rebound or guarding, No splenomegaly, No surgical scars, No tender Musculoskeletal: nl extremities to inspection Extremities: normal pulses, No calf tenderness, No clubbing, No cyanosis, No edema, No other, No palpable cord, No pitting pedal edema, No tenderness Neurological: ELECTRIC SWITCH TESTER II-XII intact, confused, nl strength Skin: nl turgor Lymph: nl lymph nodes Results Result Diagram: 07/24/17 0604 07/24/17 0604 Results 24 hrs Laboratory Tests Test 07/23/17 17:15 07/23/17 21:24 07/24/17 01:32 07/24/17 06:04 Bedside Glucose 178 179 188 White Blood Count 10.2 # Red Blood Count 5.20 Hemoglobin 16.2 Hematocrit 48.0 Mean Corpuscular Volume 92.3 Mean Corpuscular Hemoglobin 31.2 Mean Corpuscular Hemoglobin Concent 33.8 Red Cell Distribution Width 12.4 Platelet Count 186 Mean Platelet Volume 12.2 H Neutrophils % 65.9 Lymphocytes % 22.0 Monocytes % 11.1 H Eosinophils % 0.2 Basophils % 0.5 Nucleated Red Blood Cells % 0.0 Neutrophils # 6.7 Lymphocytes # 2.2 Monocytes # 1.1 H Eosinophils # 0.0 Basophils # 0.1 Nucleated Red Blood Cells # 0.0 Sodium Level 148 H Potassium Level 3.6 Chloride Level 112 H Carbon Dioxide Level 25 Anion Gap 15 Blood Urea Nitrogen 30 H Creatinine 0.83 Glucose Level 201 Calcium Level 9.8 Test 07/24/17 07:00 07/24/17 10:58 07/24/17 12:30 07/24/17 12:35 Blood Gas Specimen Source Blood arterial Blood arterial Arterial Blood Date Drawn 07/24/2017 7:15:33 AM 07/24/2017 12:25:00 AM Arterial Blood pH (Temp corrected) 7.415 7.436 Arterial Blood pCO2 (Temp correct) 36.9 32.8 L Arterial Blood pO2 (Temp corrected) 97.0 67.8 L Arterial Blood HCO3 23.1 21.6 L Arterial Blood Base Excess -0.9 -1.6 Arterial Blood Oxygen Saturation 97.2 93.4 L Jean Test ACCEPTAB N/A Arterial Blood Gas Puncture Site Left Radial Right Brachial Arterial Blood Carboxyhemoglobin 0.2 0.1 Arterial Blood Methemoglobin 0.1 0.1 Blood Gas A-a O2 Differential 579.1 H 331.1 H Oxyhemoglobin Percent 96.9 93.2 Total Hemoglobin 16.8 16.9 Blood Gas Temperature 37.0 37.0 Blood Gas Modality MASK - NRB MASK - SIMPLE FiO2 100.0 61.0 Blood Gas Notified Whom CW WF Blood Gas Notified Time 07/24/2017 8:14:25 AM 07/24/2017 12:32:00 AM Bedside Glucose 314 H 266 H Medications Medications Current Medications Ondansetron HCl (Zofran Inj) 4 mg Q6H PRN IV NAUSEA AND/OR VOMITING; Start at 01:30 Acetaminophen (Tylenol Liquid) 650 mg Q6H PRN PO PAIN LEVEL 1-3 OR FEVER Last administered on 07/19/17 18:53; Admin Dose 650 MG; Start 07/19/17 at 01:30 Diagnostic Test (Pha) (Accu-Chek) 1 ea 02 XX Last administered on 07/24/17 02: 56; Admin Dose 1 EA; Start 07/19/17 at 02:00 Insulin Glargine (Lantus) 15 unit DAILY@08 SC Last administered on 07/24/17 11 :03; Admin Dose 15 UNIT; Start 07/19/17 at 08:00 Atorvastatin Calcium (Lipitor) 20 mg DAILY PO Last administered on 07/24/17 11 :13; Admin Dose 20 MG; Start 07/19/17 at 09:00 Clopidogrel Bisulfate (plaVIX) 75 mg DAILY PO Last administered on 07/24/17 07 :41; Admin Dose 75 MG; Start 07/19/17 at 09:00 Miscellaneous Information 1 ea NOTE XX ; Start 07/19/17 at 02:00 Glucose (Glutose) 15 gm Q15M PRN PO DECREASED GLUCOSE; Start 07/19/17 at 02:00 Glucose (Glutose) 22.5 gm Q15M PRN PO DECREASED GLUCOSE; Start 07/19/17 at 02: 00 Dextrose (D50w Syringe) 25 ml Q15M PRN IV DECREASED GLUCOSE; Start 07/19/17 at 02:00 Dextrose (D50w Syringe) 50 ml Q15M PRN IV DECREASED GLUCOSE; Start 07/19/17 at 02:00 Glucagon (Glucagen) 1 mg Q15M PRN IM DECREASED GLUCOSE; Start 07/19/17 at 02:00 Glucose (Glutose) 15 gm Q15M PRN BUCCAL DECREASED GLUCOSE; Start 07/19/17 at 02 :00 Insulin Aspart (Novolog Insulin Pen) (Adult SC Insulin - Mild Algorithm)... Q4 SC Last administered on 07/24/17 12:38; Admin Dose 4 UNIT; Start 07/19/17 at 05:00 Enoxaparin Sodium (Lovenox) 95 mg Q12 SC Last administered on 07/24/17 07:58; Admin Dose 95 MG; Start 07/19/17 at 09:30 Aspirin (Aspirin) 81 mg DAILY PO Last administered on 07/24/17 11:13; Admin Dose 81 MG; Start 07/20/17 at 09:00 Carvedilol (Coreg) 6.25 mg BID PO Last administered on 07/24/17 07:42; Admin Dose 6.25 MG; Start 07/21/17 at 13:30 Valsartan (Diovan) 80 mg BID PO Last administered on 07/24/17 07:41; Admin Dose 80 MG; Start 07/21/17 at 13:30 Docusate Sodium (Colace Liquid Cup) 100 mg BID NGT Last administered on 11:13; Admin Dose 100 MG; Start 07/22/17 at 21:00 Furosemide (Lasix) 40 mg DAILY IV Last administered on 07/24/17 08:13; Admin Dose 40 MG; Start 07/24/17 at 09:00 Diphenhydramine HCl (Benadryl) 25 mg Q6H PRN IV AGITATION Last administered on 07/23/17 23:57; Admin Dose 25 MG; Start 07/23/17 at 22:00 SPEEDY BASS MD Jul 24, 2017 14:46
--- NOTE | 2017-07-24 15:32 | CONS ---
Date/Time of Note Date/Time of Note DATE: 07/24/17 TIME: 15:30 Consult Date/Type/Reason Admit Date/Time Jul 19, 2017 at 00:28 Type of Consultation: Pulm ICU Subjective Comfortable postextubation. Remains confused. Currently hemodynamically stable. Objective Vital Signs Date Time Temp Pulse Resp B/P Pulse Ox O2 Delivery O2 Flow Rate FiO2 07/24/17 12:00 94 32 128/74 95 07/24/17 11:00 Nasal Cannula 07/24/17 09:48 5.0 07/24/17 08:00 98.4 07/24/17 03:33 100 Intake and Output 07/23/17 07/23/17 07/24/17 15:00 23:00 07:00 Intake Total 20 ml 0 ml Output Total 650 ml 160 ml 350 ml Balance -630 ml -160 ml -350 ml Exam HEENT: Dry mucous membrane is pupils equal reactive to light nc o2 Cardiac exam S1-S2 1/6 ejection systolic murmur Respiratory diminished air entry both lung bases but no rales. Abdomen obese soft nontender no guarding rebound Extremities no cyanosis clubbing or edema Neurology generalized weakness but no focal deficits Results/Medications Result Diagram: 07/24/17 0604 07/24/17 0604 Results 24 hrs Laboratory Tests Test 07/23/17 17:15 07/23/17 21:24 07/24/17 01:32 07/24/17 06:04 Bedside Glucose 178 179 188 White Blood Count 10.2 # Red Blood Count 5.20 Hemoglobin 16.2 Hematocrit 48.0 Mean Corpuscular Volume 92.3 Mean Corpuscular Hemoglobin 31.2 Mean Corpuscular Hemoglobin Concent 33.8 Red Cell Distribution Width 12.4 Platelet Count 186 Mean Platelet Volume 12.2 H Neutrophils % 65.9 Lymphocytes % 22.0 Monocytes % 11.1 H Eosinophils % 0.2 Basophils % 0.5 Nucleated Red Blood Cells % 0.0 Neutrophils # 6.7 Lymphocytes # 2.2 Monocytes # 1.1 H Eosinophils # 0.0 Basophils # 0.1 Nucleated Red Blood Cells # 0.0 Sodium Level 148 H Potassium Level 3.6 Chloride Level 112 H Carbon Dioxide Level 25 Anion Gap 15 Blood Urea Nitrogen 30 H Creatinine 0.83 Glucose Level 201 Calcium Level 9.8 Test 07/24/17 07:00 07/24/17 10:58 07/24/17 12:30 07/24/17 12:35 Blood Gas Specimen Source Blood arterial Blood arterial Arterial Blood Date Drawn 07/24/2017 7:15:33 AM 07/24/2017 12:25:00 AM Arterial Blood pH (Temp corrected) 7.415 7.436 Arterial Blood pCO2 (Temp correct) 36.9 32.8 L Arterial Blood pO2 (Temp corrected) 97.0 67.8 L Arterial Blood HCO3 23.1 21.6 L Arterial Blood Base Excess -0.9 -1.6 Arterial Blood Oxygen Saturation 97.2 93.4 L Jean Test ACCEPTAB N/A Arterial Blood Gas Puncture Site Left Radial Right Brachial Arterial Blood Carboxyhemoglobin 0.2 0.1 Arterial Blood Methemoglobin 0.1 0.1 Blood Gas A-a O2 Differential 579.1 H 331.1 H Oxyhemoglobin Percent 96.9 93.2 Total Hemoglobin 16.8 16.9 Blood Gas Temperature 37.0 37.0 Blood Gas Modality MASK - NRB MASK - SIMPLE FiO2 100.0 61.0 Blood Gas Notified Whom CW WF Blood Gas Notified Time 07/24/2017 8:14:25 AM 07/24/2017 12:32:00 AM Bedside Glucose 314 H 266 H Medications Current Medications Ondansetron HCl (Zofran Inj) 4 mg Q6H PRN IV NAUSEA AND/OR VOMITING; Start at 01:30 Acetaminophen (Tylenol Liquid) 650 mg Q6H PRN PO PAIN LEVEL 1-3 OR FEVER Last administered on 07/19/17 18:53; Admin Dose 650 MG; Start 07/19/17 at 01:30 Diagnostic Test (Pha) (Accu-Chek) 1 ea 02 XX Last administered on 07/24/17 02: 56; Admin Dose 1 EA; Start 07/19/17 at 02:00 Insulin Glargine (Lantus) 15 unit DAILY@08 SC Last administered on 07/24/17 11 :03; Admin Dose 15 UNIT; Start 07/19/17 at 08:00 Atorvastatin Calcium (Lipitor) 20 mg DAILY PO Last administered on 07/24/17 11 :13; Admin Dose 20 MG; Start 07/19/17 at 09:00 Clopidogrel Bisulfate (plaVIX) 75 mg DAILY PO Last administered on 07/24/17 07 :41; Admin Dose 75 MG; Start 07/19/17 at 09:00 Miscellaneous Information 1 ea NOTE XX ; Start 07/19/17 at 02:00 Glucose (Glutose) 15 gm Q15M PRN PO DECREASED GLUCOSE; Start 07/19/17 at 02:00 Glucose (Glutose) 22.5 gm Q15M PRN PO DECREASED GLUCOSE; Start 07/19/17 at 02: 00 Dextrose (D50w Syringe) 25 ml Q15M PRN IV DECREASED GLUCOSE; Start 07/19/17 at 02:00 Dextrose (D50w Syringe) 50 ml Q15M PRN IV DECREASED GLUCOSE; Start 07/19/17 at 02:00 Glucagon (Glucagen) 1 mg Q15M PRN IM DECREASED GLUCOSE; Start 07/19/17 at 02:00 Glucose (Glutose) 15 gm Q15M PRN BUCCAL DECREASED GLUCOSE; Start 07/19/17 at 02 :00 Insulin Aspart (Novolog Insulin Pen) (Adult SC Insulin - Mild Algorithm)... Q4 SC Last administered on 07/24/17 12:38; Admin Dose 4 UNIT; Start 07/19/17 at 05:00 Enoxaparin Sodium (Lovenox) 95 mg Q12 SC Last administered on 07/24/17 07:58; Admin Dose 95 MG; Start 07/19/17 at 09:30 Aspirin (Aspirin) 81 mg DAILY PO Last administered on 07/24/17 11:13; Admin Dose 81 MG; Start 07/20/17 at 09:00 Carvedilol (Coreg) 6.25 mg BID PO Last administered on 07/24/17 07:42; Admin Dose 6.25 MG; Start 07/21/17 at 13:30 Valsartan (Diovan) 80 mg BID PO Last administered on 07/24/17 07:41; Admin Dose 80 MG; Start 07/21/17 at 13:30 Docusate Sodium (Colace Liquid Cup) 100 mg BID NGT Last administered on 11:13; Admin Dose 100 MG; Start 07/22/17 at 21:00 Furosemide (Lasix) 40 mg DAILY IV Last administered on 07/24/17 08:13; Admin Dose 40 MG; Start 07/24/17 at 09:00 Diphenhydramine HCl (Benadryl) 25 mg Q6H PRN IV AGITATION Last administered on 07/23/17t 23:57; Admin Dose 25 MG; Start 07/23/17 at 22:00 Assessment/Plan Chief Complaint/Hosp Course Assessment 1. Hypoxemic respiratory failure, Now extubated remains stable post extubation from pulmonary standpoint 2. Persistent delirium. 3. Acute on chronic systolic heart failure Plan 1. Continue nasal cannula oxygen 2. Aspiration precautions and speech therapy recommendations. 3. Continue cardiac recommendations gentle diuresis if tolerated 4. PT eval and encourage out of bed once extubated Case discussed with family at bedside. Transfer to telemetry. Problems: LIANA RUBIO MD, [facility] Jul 24, 2017 15:32
[2017-07-24] MEDS: INSULIN ASPART [NOVOLOG] 3 ML PEN SC SCH ×2 (18:05→22:11)
[2017-07-24] MEDS ORDERED: INSULIN ASPART [NOVOLOG] 3 ML PEN SC SCH (18:05)
[2017-07-25] VITALS (11 sets, daily range): BP systolic 101–130; BP diastolic 55–78; PULSE 76–85; RESP 18–19
[2017-07-25] MEDS ORDERED: ACCU-CHEK XX SCH ×3 (02:00)
[2017-07-25] MEDS: ACCU-CHEK XX SCH (02:03)
[2017-07-25] MEDS: FUROSEMIDE 40 MG INJ IV SCH (08:06)
[2017-07-25] MEDS: ATORVASTATIN 20 MG TAB PO SCH (08:06)
[2017-07-25] MEDS: DOCUSATE SODIUM 10 MG/ML (10ML CUP) NGT SCH ×2 (08:06→21:08)
[2017-07-25] MEDS: CLOPIDOGREL 75 MG TAB PO SCH (08:06)
[2017-07-25] MEDS: VALSARTAN 80 MG TAB PO SCH ×2 (08:07→21:09)
[2017-07-25] MEDS: ASPIRIN 81 MG TAB PO SCH (08:07)
[2017-07-25] MEDS: INSULIN GLARGINE [LANtus] 3 ML PEN SC SCH (08:10)
[2017-07-25] MEDS: INSULIN ASPART [NOVOLOG] 3 ML PEN SC SCH ×6 (08:10→21:08)
[2017-07-25] MEDS: ENOXAPARIN 100 MG/ML SYG SC SCH (08:11)
[2017-07-25 11:05] LABS: BASOPHIL # 0.1 10^3/ul (0.0-0.1); BASOPHILS % 0.6 % (0.0-2.0); EOSINOPHILS # 0.1 10^3/ul (0.0-0.5); EOSINOPHILS % 1.2 % (0.0-7.0); HEMATOCRIT 45.1 % (42.0-52.0); HEMOGLOBIN 14.7 g/dl (14.0-18.0); LYMPHOCYTES % 17.1 % (15.0-51.0); MEAN CORPUSCULAR HEMOGLOBIN 29.9 pg (29.0-33.0); MEAN CORPUSCULAR HGB CONC 32.6 g/dl (32.0-37.0); MEAN CORPUSCULAR VOLUME 91.7 fl (82.0-101.0); MEAN PLATELET VOLUME 12.6 fl (7.4-10.4); MONOCYTE # 0.9 10^3/ul (0.3-0.9); MONOCYTES % 7.4 % (0.0-11.0); NEUTROPHIL # 8.5 10^3/ul (1.6-7.5); NEUTROPHILS % 73.4 % (39.0-77.0); PLATELET COUNT 188 10^3/UL (140-415); RED BLOOD COUNT 4.92 10^6/ul (4.70-6.10); RED CELL DISTRIBUTION WIDTH 12.5 % (11.5-14.5); WHITE BLOOD COUNT 11.6 10^3/ul (4.8-10.8)
[2017-07-25 11:20] LABS: CALCIUM 8.8 mg/dl (8.4-10.2); CREATININE 0.87 mg/dl (0.61-1.24); POTASSIUM 3.4 mmol/L (3.5-5.1)
--- NOTE | 2017-07-25 12:33 | CONS ---
Date/Time of Note Date/Time of Note DATE: 07/25/17 TIME: 12:21 Assessment/Plan Assessment/Plan Additional Assessment/Plan Assessment and recommendations; 1. Patient admitted with congestive heart failure exacerbation required invasive mechanical ventilation now successfully extubated a few days ago with marked overall clinical improvement. 2. Mild hypoxemia. 3. Hypertension, diabetes and CHF Continue current treatment. Consider discharge. Consultation Date/Type/Reason Admit Date/Time Jul 19, 2017 at 00:28 Type of Consultation: Pulmonary 24 HR Interval Summary Free Text/Dictation Patient's condition is markedly improved. He wants to go home. Denies any chest pain, shortness of breath. General exam; elderly male, awake and alert. Currently in no distress. Exam/Review of Systems Vital Signs Vitals Vital Signs Date Time Temp Pulse Resp B/P Pulse Ox O2 Delivery O2 Flow Rate FiO2 07/25/17 12:02 98.2 76 19 113/78 96 07/25/17 08:00 Nasal Cannula 4.0 07/24/17 03:33 100 Intake and Output 07/24/17 07/24/17 07/25/17 15:00 23:00 07:00 Intake Total 300 ml 400 ml 440 ml Output Total 1000 ml 200 ml 300 ml Balance -700 ml 200 ml 140 ml Exam HEENT exam; supple neck, no JVD. No lymphadenopathy. Midline trachea. No thyromegaly. Pharynx is clear. Patient is edentulous. Pupils are equal and reactive to light bilaterally. Chest exam; clear to auscultation. S1-S2 audible, no murmurs. Regular rhythm. Abdomen exam; soft, no organomegaly. Bowel sounds audible. Nontender. Extremity exam; no peripheral edema. DELIVERY AIDE exam; no focal deficit. Results Result Diagram: 07/25/17 0955 07/25/17 0955 Results 24 hrs Laboratory Tests Test 07/24/17 12:30 07/24/17 12:35 07/24/17 17:28 07/24/17 22:06 Blood Gas Specimen Source Blood arterial Arterial Blood Date Drawn 07/24/2017 12:25:00 AM Arterial Blood pH (Temp corrected) 7.436 Arterial Blood pCO2 (Temp correct) 32.8 L Arterial Blood pO2 (Temp corrected) 67.8 L Arterial Blood HCO3 21.6 L Arterial Blood Base Excess -1.6 Arterial Blood Oxygen Saturation 93.4 L Jean Test N/A Arterial Blood Gas Puncture Site Right Brachial Arterial Blood Carboxyhemoglobin 0.1 Arterial Blood Methemoglobin 0.1 Blood Gas A-a O2 Differential 331.1 H Oxyhemoglobin Percent 93.2 Total Hemoglobin 16.9 Blood Gas Temperature 37.0 Blood Gas Modality MASK - SIMPLE FiO2 61.0 Blood Gas Notified Whom WF Blood Gas Notified Time 07/24/2017 12:32:00 AM Bedside Glucose 266 H 241 H 225 H Test 07/25/17 02:02 07/25/17 07:54 07/25/17 09:55 07/25/17 11:48 Bedside Glucose 227 H 280 H 345 H White Blood Count 11.6 H Red Blood Count 4.92 Hemoglobin 14.7 Hematocrit 45.1 Mean Corpuscular Volume 91.7 Mean Corpuscular Hemoglobin 29.9 Mean Corpuscular Hemoglobin Concent 32.6 Red Cell Distribution Width 12.5 Platelet Count 188 Mean Platelet Volume 12.6 H Neutrophils % 73.4 Lymphocytes % 17.1 Monocytes % 7.4 Eosinophils % 1.2 Basophils % 0.6 Nucleated Red Blood Cells % 0.0 Neutrophils # 8.5 H Lymphocytes # 2.0 Monocytes # 0.9 Eosinophils # 0.1 Basophils # 0.1 Nucleated Red Blood Cells # 0.0 Sodium Level 135 Potassium Level 3.4 L Chloride Level 98 # Carbon Dioxide Level 29 Anion Gap 11 Blood Urea Nitrogen 34 H Creatinine 0.87 Glucose Level 366 #H Calcium Level 8.8 Medications Medications Current Medications Ondansetron HCl (Zofran Inj) 4 mg Q6H PRN IV NAUSEA AND/OR VOMITING; Start at 01:30 Acetaminophen (Tylenol Liquid) 650 mg Q6H PRN PO PAIN LEVEL 1-3 OR FEVER Last administered on 07/19/17 18:53; Admin Dose 650 MG; Start 07/19/17 at 01:30 Diagnostic Test (Pha) (Accu-Chek) 1 ea 02 XX Last administered on 07/25/17 02: 03; Admin Dose 1 EA; Start 07/19/17 at 02:00 Insulin Glargine (Lantus) 15 unit DAILY@08 SC Last administered on 07/25/17 08 :10; Admin Dose 15 UNIT; Start 07/19/17 at 08:00 Atorvastatin Calcium (Lipitor) 20 mg DAILY PO Last administered on 07/25/17 08 :06; Admin Dose 20 MG; Start 07/19/17 at 09:00 Clopidogrel Bisulfate (plaVIX) 75 mg DAILY PO Last administered on 07/25/17 08 :06; Admin Dose 75 MG; Start 07/19/17 at 09:00 Miscellaneous Information 1 ea NOTE XX ; Start 07/19/17 at 02:00 Glucose (Glutose) 15 gm Q15M PRN PO DECREASED GLUCOSE; Start 07/19/17 at 02:00 Glucose (Glutose) 22.5 gm Q15M PRN PO DECREASED GLUCOSE; Start 07/19/17 at 02: 00 Dextrose (D50w Syringe) 25 ml Q15M PRN IV DECREASED GLUCOSE; Start 07/19/17 at 02:00 Dextrose (D50w Syringe) 50 ml Q15M PRN IV DECREASED GLUCOSE; Start 07/19/17 at 02:00 Glucagon (Glucagen) 1 mg Q15M PRN IM DECREASED GLUCOSE; Start 07/19/17 at 02:00 Glucose (Glutose) 15 gm Q15M PRN BUCCAL DECREASED GLUCOSE; Start 07/19/17 at 02 :00 Enoxaparin Sodium (Lovenox) 95 mg Q12 SC Last administered on 07/25/17 08:11; Admin Dose 95 MG; Start 07/19/17 at 09:30 Aspirin (Aspirin) 81 mg DAILY PO Last administered on 07/25/17 08:07; Admin Dose 81 MG; Start 07/20/17 at 09:00 Carvedilol (Coreg) 6.25 mg BID PO Last administered on 07/25/17 08:07; Admin Dose 6.25 MG; Start 07/21/17 at 13:30 Valsartan (Diovan) 80 mg BID PO Last administered on 07/25/17 08:07; Admin Dose 80 MG; Start 07/21/17 at 13:30 Docusate Sodium (Colace Liquid Cup) 100 mg BID NGT Last administered on 08:06; Admin Dose 100 MG; Start 07/22/17 at 21:00 Furosemide (Lasix) 40 mg DAILY IV Last administered on 07/25/17 08:06; Admin Dose 40 MG; Start 07/24/17 at 09:00 Diphenhydramine HCl (Benadryl) 25 mg Q6H PRN IV AGITATION Last administered on 07/23/17t 23:57; Admin Dose 25 MG; Start 07/23/17 at 22:00 EDE DODD Jul 25, 2017 12:33
--- NOTE | 2017-07-25 15:53 | PN ---
Date/Time of Note Date/Time of Note DATE: 07/25/17 TIME: 15:49 Assessment/Plan VTE Prophylaxis VTE Prophylaxis Intervention: SCD's Lines/Catheters IV Catheter Type (from Nrs): Saline Lock Urinary Cath still in place: No Assessment/Plan Assessment/Plan ssessment/Plan 62-year-old male with chronic systolic HF (EF 30%), CAD sp PCI, HTN, DM presented with SOB most likely acute on chronic systolic HF with concern for possible underlying respiratory infection with resultant NSTEMI 2/2 demand. #acute on chronic CHF -TTE with EF 40% -cont diuresis (Pt currently net -8.5L). change to PO -extubated 9.21 -ARB restarted at lower dose by cards; bb also resumed #possible underlying pna: sp 7 days abx #NSTEMI likely 2/2 demand: cont CV meds #DM2: insulin + SSI a1c 10s likely dc home in AM if tolerating PO meds Subjective 24 Hr Interval Summary Free Text/Dictation High BGs noted. Pt and family having pizza democrat this afternoon. Per daughter mentation has improved back to baseline. Pt ambulated in [place] with PT Exam/Review of Systems Vital Signs Vitals Vital Signs Date Time Temp Pulse Resp B/P Pulse Ox O2 Delivery O2 Flow Rate FiO2 07/25/17 12:03 76 07/25/17 12:02 98.2 19 113/78 96 07/25/17 08:00 Nasal Cannula 4.0 07/24/17 03:33 100 Intake and Output 07/24/17 07/24/17 07/25/17 15:00 23:00 07:00 Intake Total 300 ml 400 ml 440 ml Output Total 1000 ml 200 ml 300 ml Balance -700 ml 200 ml 140 ml Exam nad no mrg lungs clear abd soft no rashes fluid status -8.5L since admission Results Result Diagram: 07/25/17 0955 07/25/17 0955 Results 24 hrs Laboratory Tests Test 07/24/17 17:28 07/24/17 22:06 07/25/17 02:02 07/25/17 07:54 Bedside Glucose 241 H 225 H 227 H 280 H Test 07/25/17 09:55 07/25/17 11:48 White Blood Count 11.6 H Red Blood Count 4.92 Hemoglobin 14.7 Hematocrit 45.1 Mean Corpuscular Volume 91.7 Mean Corpuscular Hemoglobin 29.9 Mean Corpuscular Hemoglobin Concent 32.6 Red Cell Distribution Width 12.5 Platelet Count 188 Mean Platelet Volume 12.6 H Neutrophils % 73.4 Lymphocytes % 17.1 Monocytes % 7.4 Eosinophils % 1.2 Basophils % 0.6 Nucleated Red Blood Cells % 0.0 Neutrophils # 8.5 H Lymphocytes # 2.0 Monocytes # 0.9 Eosinophils # 0.1 Basophils # 0.1 Nucleated Red Blood Cells # 0.0 Sodium Level 135 Potassium Level 3.4 L Chloride Level 98 # Carbon Dioxide Level 29 Anion Gap 11 Blood Urea Nitrogen 34 H Creatinine 0.87 Glucose Level 366 #H Calcium Level 8.8 Bedside Glucose 345 H Medications Medications Current Medications Ondansetron HCl (Zofran Inj) 4 mg Q6H PRN IV NAUSEA AND/OR VOMITING; Start at 01:30 Acetaminophen (Tylenol Liquid) 650 mg Q6H PRN PO PAIN LEVEL 1-3 OR FEVER Last administered on 07/19/17 18:53; Admin Dose 650 MG; Start 07/19/17 at 01:30 Diagnostic Test (Pha) (Accu-Chek) 1 ea 02 XX Last administered on 07/25/17 02: 03; Admin Dose 1 EA; Start 07/19/17 at 02:00 Insulin Glargine (Lantus) 15 unit DAILY@08 SC Last administered on 07/25/17 08 :10; Admin Dose 15 UNIT; Start 07/19/17 at 08:00 Atorvastatin Calcium (Lipitor) 20 mg DAILY PO Last administered on 07/25/17 08 :06; Admin Dose 20 MG; Start 07/19/17 at 09:00 Clopidogrel Bisulfate (plaVIX) 75 mg DAILY PO Last administered on 07/25/17 08 :06; Admin Dose 75 MG; Start 07/19/17 at 09:00 Miscellaneous Information 1 ea NOTE XX ; Start 07/19/17 at 02:00 Glucose (Glutose) 15 gm Q15M PRN PO DECREASED GLUCOSE; Start 07/19/17 at 02:00 Glucose (Glutose) 22.5 gm Q15M PRN PO DECREASED GLUCOSE; Start 07/19/17 at 02: 00 Dextrose (D50w Syringe) 25 ml Q15M PRN IV DECREASED GLUCOSE; Start 07/19/17 at 02:00 Dextrose (D50w Syringe) 50 ml Q15M PRN IV DECREASED GLUCOSE; Start 07/19/17 at 02:00 Glucagon (Glucagen) 1 mg Q15M PRN IM DECREASED GLUCOSE; Start 07/19/17 at 02:00 Glucose (Glutose) 15 gm Q15M PRN BUCCAL DECREASED GLUCOSE; Start 07/19/17 at 02 :00 Enoxaparin Sodium (Lovenox) 95 mg Q12 SC Last administered on 07/25/17 08:11; Admin Dose 95 MG; Start 07/19/17 at 09:30 Aspirin (Aspirin) 81 mg DAILY PO Last administered on 07/25/17 08:07; Admin Dose 81 MG; Start 07/20/17 at 09:00 Carvedilol (Coreg) 6.25 mg BID PO Last administered on 07/25/17 08:07; Admin Dose 6.25 MG; Start 07/21/17 at 13:30 Valsartan (Diovan) 80 mg BID PO Last administered on 07/25/17 08:07; Admin Dose 80 MG; Start 07/21/17 at 13:30 Docusate Sodium (Colace Liquid Cup) 100 mg BID NGT Last administered on 08:06; Admin Dose 100 MG; Start 07/22/17 at 21:00 Furosemide (Lasix) 40 mg DAILY IV Last administered on 07/25/17 08:06; Admin Dose 40 MG; Start 07/24/17 at 09:00 Diphenhydramine HCl (Benadryl) 25 mg Q6H PRN IV AGITATION Last administered on 07/23/17 23:57; Admin Dose 25 MG; Start 07/23/17 at 22:00 KAYCEE SWARTZ MD Jul 25, 2017 15:53
[2017-07-25] MEDS: FUROSEMIDE 40 MG TAB PO SCH (17:45)
[2017-07-25] MEDS ORDERED: INSULIN ASPART [NOVOLOG] 3 ML PEN SC SCH (18:05)
[2017-07-25] MEDS: HEPARIN 5,000 UNIT/0.5 ML VIAL SC SCH (21:24)
[2017-07-26] VITALS (7 sets, daily range): BP systolic 122–144; BP diastolic 67–77; PULSE 66–85; RESP 16–20
[2017-07-26] MEDS: ACCU-CHEK XX SCH (04:10)
[2017-07-26] MEDS ORDERED: INSULIN ASPART [NOVOLOG] 3 ML PEN SC ONE (04:30)
[2017-07-26] MEDS: FUROSEMIDE 40 MG TAB PO SCH (05:24)
[2017-07-26] MEDS: HEPARIN 5,000 UNIT/0.5 ML VIAL SC SCH (05:27)
[2017-07-26] MEDS ORDERED: INSULIN GLARGINE [LANtus] 3 ML PEN SC SCH (08:00)
[2017-07-26] MEDS: ATORVASTATIN 20 MG TAB PO SCH (08:11)
[2017-07-26] MEDS: VALSARTAN 80 MG TAB PO SCH (08:11)
[2017-07-26] MEDS: ASPIRIN 81 MG TAB PO SCH (08:11)
[2017-07-26] MEDS: CLOPIDOGREL 75 MG TAB PO SCH (08:11)
[2017-07-26] MEDS: DOCUSATE SODIUM 10 MG/ML (10ML CUP) NGT SCH (08:13)
[2017-07-26] MEDS: INSULIN ASPART [NOVOLOG] 3 ML PEN SC SCH ×2 (08:14→08:15)
[2017-07-26] MEDS ORDERED: LANT3I SC (10:59)
[2017-07-26] MEDS ORDERED: CARV6.2579 PO (10:59)
[2017-07-26] MEDS ORDERED: FURO40TA4 PO (10:59)
[2017-07-26] MEDS ORDERED: VALS80TA2 PO (10:59)
[2017-07-26] MEDS ORDERED: ASPI81TA3 PO (10:59)
--- NOTE | 2017-07-26 11:36 | PDOCDIS ---
Discharge Instructions CONDITION Patient Condition: Stable HOME CARE INSTRUCTIONS: Special Diet: pureed nectar thick liquid FOLLOW UP/APPOINTMENTS Follow-up Plan CHANGES FROM ADMIT MEDS Pt started on basal insulin as a1c>10, pt started on BID PO lasix, home ARB was decreased, home bb was increased. Asa decreased form 325 to 81 PCP within 7 days KAYCEE SWARTZ MD Jul 26, 2017 11:36
--- NOTE | 2017-07-26 11:38 | DS ---
Date/Time of Note Date/Time of Note DATE: 07/26/17 TIME: 11:36 Discharge Summary Admission/Discharge Info Admit Date/Time Jul 19, 2017 at 00:28 Discharge Date/Time Discharge Diagnosis acute on chronic systolic heart failure, poorly controlled diabetes, hypertension Consults cardiology, pulmonology Procedures . TTE Conclusions 1. The left ventricle is normal in size with moderately reduced systolic function. There is global hypokinesis. 2. Estimated left ventricular ejection fraction or 40%. Pt intubated 9., extubated 9. HbA1c>10 Hx of Present Illness This is a 62-year-old male with a history of diabetes hypertension CAD status post PCI with stent in 2012 and a CHF with systolic dysfunction with EF of 30% in 2013, noncompliance who presented to the emergency department complaining of shortness of breath. Patient was hypoxic with O2 sat of 82% and was using his accessory muscles when he presented to ER. He was initially placed on BiPAP and now he is intubated and admitted to ICU. ABG on FiO2 of 100% shows pH 7.24 , PCO2 59, PO2 67 and a bicarb 25. Labs shows a WBC of 15,000, glucose 300 and a BNP 2300. Chest x-ray consistent with congestive heart failure and pulmonary edema and very small pleural effusions appearing since previous study from 2012. . Hospital Course 62-year-old male with chronic systolic HF (EF 30%), CAD sp PCI, HTN, DM presented with SOB from acute on chronic systolic HF with concern for possible underlying respiratory infection (for which he completed 7 days of abx) with resultant NSTEMI 2/2 demand. Pt with such bad respiratory failure on admission he was intubated, extubated 9. Pt aggressively diuresed. Net I/O >-8L during his stay. CHANGES FROM ADMIT MEDS Pt started on basal insulin as a1c>10, pt started on BID PO lasix, home ARB was decreased, home bb was increased. Asa decreased form 325 to 81 Home Meds Active Scripts Insulin Glargine* (Lantus*) 100 Unit/Ml Soln, 20 UNIT SC DAILY@08 for 30 Days, # 1 VIAL Prov:KAYCEE SWARTZ MD 07/26/17 Furosemide* (Furosemide*) 40 Mg Tablet, 40 MG PO BID DIURETICS for 30 Days, #60 TAB Prov:KAYCEE SWARTZ MD 07/26/17 Aspirin (Aspirin) 81 Mg Chew, 81 MG PO DAILY for 30 Days, #30 TAB Prov:KAYCEE SWARTZ MD 07/26/17 Valsartan* (Diovan*) 80 Mg Tablet, 80 MG PO BID for 30 Days, #60 TAB Prov:KAYCEE SWARTZ MD 07/26/17 Carvedilol* (Carvedilol*) 6.25 Mg Tablet, 6.25 MG PO BID for 30 Days, #60 TAB Prov:KAYCEE SWARTZ MD 07/26/17 Reported Medications Nitroglycerin* (Nitroglycerin* SL) 0.4 Mg Tab.subl, 0.4 MG SL Q2LQOVCT 08/18/12 Metformin* (Glucophage*) 500 Mg Tab, 500 MG PO BID 08/18/12 Clopidogrel Bisulfate (Plavix) 75 Mg Tablet, 75 MG PO DAILY 08/18/12 Atorvastatin (Lipitor) 20 Mg Tablet, 20 MG PO DAILY 08/18/12 Pantoprazole* (Protonix*) 40 Mg Tablet.dr, 40 MG PO DAILY 08/18/12 Discontinued Reported Medications Valsartan* (Diovan*) 320 Mg Tablet, 320 MG PO BID 04/27/13 Nitroglycerin* (Nitro-Dur* Patch) 1 Patch Patch, 1 PATCH TD q24h 08/18/12 Aspirin* (Aspirin*) 325 Mg Tablet, 325 MG PO DAILY 08/18/12 Carvedilol* (Carvedilol*) 3.125 Mg Tablet, 3.125 MG PO BID 08/18/12 Follow-up Plan PCP within 5 days for further med rec, BP check, BG low review Primary Care Provider Dr. Wenceslao Pelayo, [place] [address] p Time spent on discharge: > 30 minutes Pending Labs Laboratory Tests Test 07/25/17 11:48 07/25/17 17:30 07/25/17 17:46 07/25/17 21:07 Bedside Glucose 345mg/dL (70-220) 287mg/dL (70-220) 65mg/dL (70-220) 294mg/dL (70-220) Test 07/26/17 04:03 07/26/17 07:34 Bedside Glucose 225mg/dL (70-220) 258mg/dL (70-220) KAYCEE SWARTZ MD Jul 26, 2017 11:38
--- NOTE | 2017-07-26 12:04 | CONS ---
Date/Time of Note Date/Time of Note DATE: 07/26/17 TIME: 12:02 Assessment/Plan Assessment/Plan Additional Assessment/Plan Assessment and recommendations; 1. Patient admitted with CHF exacerbation with respiratory failure now successfully extubated 2 days ago with excellent overall clinical status. 2. History of hypertension or diabetes. No current treatment. Consider discharge. Consultation Date/Type/Reason Admit Date/Time Jul 19, 2017 at 00:28 Type of Consultation: Pulmonary 24 HR Interval Summary Free Text/Dictation Patient's condition is stable. Remains awake and alert. Denies any shortness of breath. General exam; elderly male, awake and alert. Currently in no distress. Exam/Review of Systems Vital Signs Vitals Vital Signs Date Time Temp Pulse Resp B/P Pulse Ox O2 Delivery O2 Flow Rate FiO2 07/26/17 11:42 98.2 78 16 144/70 96 07/26/17 04:06 Nasal Cannula 3.0 07/24/17 03:33 100 Intake and Output 07/25/17 07/25/17 07/26/17 15:00 23:00 07:00 Intake Total 950 ml 1600 ml Output Total 1150 ml 950 ml Balance -200 ml 650 ml Exam HEENT exam; supple neck, positive JVD. No lymphadenopathy. Midline trachea. No thyromegaly. Pharynx is clear. Patient is edentulous. Pupils are small bilaterally. Chest exam; diminished but clear breath sounds. S1-S2 audible, no murmurs. Regular rhythm. Abdomen exam; soft, nontender. No organomegaly. Bowel sounds audible. Extremity exam; no edema. MUTUEL CLERK exam; no focal deficit. Results Result Diagram: 07/25/17 0955 07/25/17 0955 Results 24 hrs Laboratory Tests Test 07/25/17 17:30 07/25/17 17:46 07/25/17 21:07 07/26/17 04:03 Bedside Glucose 287 H 65 L 294 H 225 H Test 07/26/17 07:34 Bedside Glucose 258 H Medications Medications Current Medications Ondansetron HCl (Zofran Inj) 4 mg Q6H PRN IV NAUSEA AND/OR VOMITING; Start at 01:30 Acetaminophen (Tylenol Liquid) 650 mg Q6H PRN PO PAIN LEVEL 1-3 OR FEVER Last administered on 07/19/17t 18:53; Admin Dose 650 MG; Start 07/19/17 at 01:30 Diagnostic Test (Pha) (Accu-Chek) 1 ea 02 XX Last administered on 07/26/17 04: 10; Admin Dose 1 EA; Start 07/19/17 at 02:00 Atorvastatin Calcium (Lipitor) 20 mg DAILY PO Last administered on 07/26/17 08 :11; Admin Dose 20 MG; Start 07/19/17 at 09:00 Clopidogrel Bisulfate (plaVIX) 75 mg DAILY PO Last administered on 07/26/17 08 :11; Admin Dose 75 MG; Start 07/19/17 at 09:00 Miscellaneous Information 1 ea NOTE XX ; Start 07/19/17 at 02:00 Glucose (Glutose) 15 gm Q15M PRN PO DECREASED GLUCOSE; Start 07/19/17 at 02:00 Glucose (Glutose) 22.5 gm Q15M PRN PO DECREASED GLUCOSE; Start 07/19/17 at 02: 00 Dextrose (D50w Syringe) 25 ml Q15M PRN IV DECREASED GLUCOSE; Start 07/19/17 at 02:00 Dextrose (D50w Syringe) 50 ml Q15M PRN IV DECREASED GLUCOSE; Start 07/19/17 at 02:00 Glucagon (Glucagen) 1 mg Q15M PRN IM DECREASED GLUCOSE; Start 07/19/17 at 02:00 Glucose (Glutose) 15 gm Q15M PRN BUCCAL DECREASED GLUCOSE; Start 07/19/17 at 02 :00 Aspirin (Aspirin) 81 mg DAILY PO Last administered on 07/26/17 08:11; Admin Dose 81 MG; Start 07/20/17 at 09:00 Carvedilol (Coreg) 6.25 mg BID PO Last administered on 07/26/17 08:12; Admin Dose 6.25 MG; Start 07/21/17 at 13:30 Valsartan (Diovan) 80 mg BID PO Last administered on 07/26/17 08:11; Admin Dose 80 MG; Start 07/21/17 at 13:30 Docusate Sodium (Colace Liquid Cup) 100 mg BID NGT Last administered on 08:13; Admin Dose 100 MG; Start 07/22/17 at 21:00 Heparin Sodium (Porcine) (Heparin (5000 Units/0.5 ml)) 5,000 unit Q8 SC Last administered on 07/26/17 05:27; Admin Dose 5,000 UNIT; Start 07/25/17 at 22:00 Insulin Glargine (Lantus) 20 unit DAILY@08 SC Last administered on 07/26/17 08 :16; Admin Dose 20 UNIT; Start 07/26/17 at 08:00 EDE DODD Jul 26, 2017 12:04
== END 2017-07-26 12:00 | disposition home or self-care (01) | DRG 207 ==
LOC: E/R 22:10 → ICU 07-19 00:28 → MS4 07-24 16:31
PROVIDERS: ADMIT Internal Medicine; ATTEND Internal Medicine
PROC: 5A1955Z Respiratory Ventilation, Greater than 96 Consecutive Hours (ICD-10-PCS; principal; 2017-07-19)
PROC: 0BH17EZ Insertion of Endotracheal Airway into Trachea, Via Natural or Artificial Opening (ICD-10-PCS; 2017-07-19)
DX: J96.01 Acute respiratory failure with hypoxia (principal); I21.4 Non-ST elevation (NSTEMI) myocardial infarction; I50.23 Acute on chronic systolic (congestive) heart failure; G93.41 Metabolic encephalopathy; J18.9 Pneumonia, unspecified organism; I11.0 Hypertensive heart disease with heart failure; J96.02 Acute respiratory failure with hypercapnia; I25.10 Atherosclerotic heart disease of native coronary artery without angina pectoris; Z95.5 Presence of coronary angioplasty implant and graft; Z91.19 Patient's noncompliance with other medical treatment and regimen; I25.5 Ischemic cardiomyopathy; Z79.4 Long term (current) use of insulin
CPT/HCPCS: 31500; 36415; 36600; 71010; 80048; 80053; 81001; 82550; 82553; 82803; 82962; 83036; 83735; 83880; 84100; 84145; 84484; 85025; 85610; 85730; 87040; 87070; 87081; 87086; 89220; 92610; 93005; 93306; 94002; 94003; 94664; 94770; 96374; 96375; 97161; J0360; J0692; J1200; J1630; J1644; J1650; J1815; J1940; J1956; J2060; J2270; J2405; J3370; J3480; J7042

== ENCOUNTER 2017-08-28 21:17 | Inpatient (IN) | payer MEDICAID ==
[~2017-08-28] VITALS: Ht 177.8 cm; Wt 94.2 kg
[~2017-08-28 21:17] MED LIST changes: -ASPI325T4 PO; +ASPI81TA3 PO; -CARV3.1260 PO; +CARV6.2579 PO; +FURO40TA4 PO; +LANT3I SC; -VALS320T11 PO; +VALS80TA2 PO; -[UNRECOGNIZED DRUG - CODE] TD
[2017-08-28] MEDS ORDERED: NITROGLYCERIN (SL) 0.4 MG TAB SL ONE (23:00)
[2017-08-28] MEDS ORDERED: ASPIRIN 81 MG TAB PO ONE (23:00)
[2017-08-28 23:08] LABS: BASOPHILS % 0.5 % (0.0-2.0); EOSINOPHILS # 0.1 10^3/ul (0.0-0.5); EOSINOPHILS % 1.6 % (0.0-7.0); LYMPHOCYTES # 3.6 10^3/ul (0.8-2.9); LYMPHOCYTES % 45.6 % (15.0-51.0); MEAN CORPUSCULAR HEMOGLOBIN 30.7 pg (29.0-33.0); MEAN CORPUSCULAR HGB CONC 33.3 g/dl (32.0-37.0); MEAN CORPUSCULAR VOLUME 92.2 fl (82.0-101.0); MEAN PLATELET VOLUME 11.5 fl (7.4-10.4); MONOCYTE # 0.6 10^3/ul (0.3-0.9); NEUTROPHIL # 3.6 10^3/ul (1.6-7.5); PLATELET COUNT 169 10^3/UL (140-415); RED BLOOD COUNT 4.23 10^6/ul (4.70-6.10); RED CELL DISTRIBUTION WIDTH 12.8 % (11.5-14.5)
[2017-08-28 23:16] LABS: ALANINE AMINOTRANSFERASE 33 IU/L (13-69); ALBUMIN 4.5 g/dl (3.3-4.9); ALBUMIN/GLOBULIN RATIO 1.73; ALKALINE PHOSPHATASE 77 IU/L (42-121); ANION GAP 14 (8-16); ASPARTATE AMINO TRANSFERASE 28 IU/L (15-46); BILIRUBIN,INDIRECT 0.3 mg/dl (0-1.1); BILIRUBIN,TOTAL 0.3 mg/dl (0.2-1.3); BLOOD UREA NITROGEN 20 mg/dl (7-20); CARBON DIOXIDE 26 mmol/L (21-31); CHLORIDE 105 mmol/L (97-110); CREATININE 0.74 mg/dl (0.61-1.24); GLUCOSE 287 mg/dl (70-220); POTASSIUM 4.1 mmol/L (3.5-5.1); SODIUM 141 mmol/L (135-144); TOTAL PROTEIN 7.1 g/dl (6.1-8.1)
--- NOTE | 2017-08-28 23:21 | RADRPT ---
PROCEDURE: XR Chest. CLINICAL INDICATION: Abdominal pain. TECHNIQUE: Single frontal view of the chest. COMPARISON: The 04/27/2013. FINDINGS: Mild cardiomegaly. Mild pulmonary vascular congestion. Mild atelectasis versus airspace disease at l [place]. The lungs are otherwise clear. No signs of pleural fluid or pneumothorax are seen. The os seous structures and soft tissues are unremarkable. IMPRESSION: Mild failure. RPTAT: [facility] Physician Vincent Date Time Electronically viewed and signed by Physician Vincent on 08/28/2017 23:20 RS/
[2017-08-28 23:28] LABS: B-TYPE NATRIURETIC PEPTIDE 884 PG/ML (0-125)
[2017-08-28 23:45] LABS: TROPONIN-I < 0.012 ng/ml (0.00-0.12)
--- NOTE | 2017-08-28 23:56 | ERD ---
ER Documentation Chief Complaint Chief Complaint chest pain today HPI 62-year-old man with a history of CAD, LA, PCI and stent placement presents with pressure-like substernal chest pain once this morning lasting for just over an hour and resolving after 2-3 nitroglycerin sublingual tablets and then another episode of substernal chest pain lasting for about 45 minutes this evening. He required another 2 sublingual nitroglycerin tablets to relieve the pain at that time as well. He states he has similar chest pain about 2-3 times per week which usually only requires one sublingual nitroglycerin. He states at this time is chest pain as 5/10. He denies cough, no fevers or chills, no vomiting or diarrhea. Patient denies blurry vision, no weakness in his arms or legs. ROS All systems reviewed and are negative except as per history of present illness. Medications Home Meds Active Scripts Insulin Glargine* (Lantus*) 100 Unit/Ml Soln, 20 UNIT SC DAILY@08 for 30 Days, # 1 VIAL Prov:KAYCEE SWARTZ MD 07/26/17 Furosemide* (Furosemide*) 40 Mg Tablet, 40 MG PO BID DIURETICS for 30 Days, #60 TAB Prov:KAYCEE SWARTZ MD 07/26/17 Aspirin (Aspirin) 81 Mg Chew, 81 MG PO DAILY for 30 Days, #30 TAB Prov:KAYCEE SWARTZ MD 07/26/17 Valsartan* (Diovan*) 80 Mg Tablet, 80 MG PO BID for 30 Days, #60 TAB Prov:KAYCEE SWARTZ MD 07/26/17 Carvedilol* (Carvedilol*) 6.25 Mg Tablet, 6.25 MG PO BID for 30 Days, #60 TAB Prov:KAYCEE SWARTZ MD 07/26/17 Reported Medications Nitroglycerin* (Nitroglycerin* SL) 0.4 Mg Tab.subl, 0.4 MG SL [id number] 08/18/12 Metformin* (Glucophage*) 500 Mg Tab, 500 MG PO BID 08/18/12 Clopidogrel Bisulfate (Plavix) 75 Mg Tablet, 75 MG PO DAILY 08/18/12 Atorvastatin (Lipitor) 20 Mg Tablet, 20 MG PO DAILY 08/18/12 Pantoprazole* (Protonix*) 40 Mg Tablet.dr, 40 MG PO DAILY 08/18/12 Allergies Allergies: Coded Allergies: No Known Allergy (Verified , 04/27/13) PMhx/Soc CHF, CAD status post multivessel coronary artery disease, PCI with stent placement, previous LA, hypertension, diabetes mellitus History of Surgery: Yes (ANGIOPLASTY) Anesthesia Reaction: Yes Hx Neurological Disorder: No Hx Respiratory Disorders: No Hx Cardiac Disorders: Yes (LA X1) Hx Psychiatric Problems: No Hx Miscellaneous Medical Probl: Yes (DM, HTN AND CHOLESTEROL) Hx Alcohol Use: Yes (SOCIALLY) Hx Substance Use: No Hx Tobacco Use: Yes (QUIT 4 YEARS AGO) Smoking Status: Former smoker FmHx Family History: No diabetes Physical Exam Vitals Vital Signs Date Time Temp Pulse Resp B/P Pulse Ox O2 Delivery O2 Flow Rate FiO2 08/28/17 23:07 77 20 150/76 99 Nasal Cannula 2.0 08/28/17 21:28 98.3 69 20 164/77 97 Physical Exam GENERAL: Well-developed, well-nourished, well-hydrated, in no apparent distress , looks nontoxic in appearance HEENT: Moist mucous membranes, pink conjunctiva, no cervical spine tenderness or step-off deformities, no goiter, no jaundice or icterus, extraocular movements intact without pain. No submandibular induration, and no pharyngeal erythema NEURO: Alert and oriented 3, cranial nerves II through XII intact bilaterally, pupils equal round reactive to light, no focal deficits or facial asymmetry, sensation intact distally Strength 5/5 in upper and lower extremities bilaterally CARDIAC: Regular rate and rhythm, no murmurs rubs or gallops LUNGS: Clear bilaterally no wheezing crackles or stridor ABDOMEN: Soft nontender, no guarding, no rigidity, no rebound, no psoas sign no obturator sign. Normoactive bowel sounds SKIN: Warm and dry to touch, no abrasions, contusions, or hematomas, no lacerations, no ecchymosis, no target lesions, and without ulcers EXTREMITIES: No clubbing cyanosis or edema, calves are bilaterally symmetrical, no Homans sign, no popliteal cord sign. Distal pulses equal and bilateral PSYCH: Normal affect without agitation or irritability Result Diagram: 08/28/17221908/28/172219 Results 24 hrs Laboratory Tests Test 08/28/17 22:20 White Blood Count 8.010^3/ul Red Blood Count 4.2310^6/ul Hemoglobin 13.0g/dl Hematocrit 39.0% Mean Corpuscular Volume 92.2fl Mean Corpuscular Hemoglobin 30.7pg Mean Corpuscular Hemoglobin Concent 33.3g/dl Red Cell Distribution Width 12.8% Platelet Count 54225^3/UL Mean Platelet Volume 11.5fl Neutrophils % 45.0% Lymphocytes % 45.6% Monocytes % 7.0% Eosinophils % 1.6% Basophils % 0.5% Nucleated Red Blood Cells % 0.0/100WBC Neutrophils # 3.610^3/ul Lymphocytes # 3.610^3/ul Monocytes # 0.610^3/ul Eosinophils # 0.110^3/ul Basophils # 0.010^3/ul Nucleated Red Blood Cells # 0.010^3/ul Sodium Level 141mmol/L Potassium Level 4.1mmol/L Chloride Level 105mmol/L Carbon Dioxide Level 26mmol/L Anion Gap 14 Blood Urea Nitrogen 20mg/dl Creatinine 0.74mg/dl Glucose Level 287mg/dl Calcium Level 9.0mg/dl Total Bilirubin 0.3mg/dl Direct Bilirubin 0.00mg/dl Indirect Bilirubin 0.3mg/dl Aspartate Amino Transf (AST/SGOT) 28IU/L Alanine Aminotransferase (ALT/SGPT) 33IU/L Alkaline Phosphatase 77IU/L Troponin I < 0.012ng/ml B-Type Natriuretic Peptide 884PG/ML Total Protein 7.1g/dl Albumin 4.5g/dl Globulin 2.60g/dl Albumin/Globulin Ratio 1.73 Lipase 75U/L Current Medications Medications (Trade) Dose Ordered Sig/Masha Route PRN Reason Start Time Stop Time Status Last Admin Dose Admin Nitroglycerin (Nitroglycerin (Sl Tab) 0.4 Mg) 1 tab ONCE ONCE SL 08/28/17 23:00 08/28/17 23:01 DC 08/28/17 22:55 Aspirin (Aspirin) 162 mg ONCE ONCE PO 08/28/17 23:00 08/28/17 23:01 DC 08/28/17 22:55 Procedures/[facility] IV line was established patient was placed on radiographer cardiac catheterization rhythm strip revealed a sinus rhythm at about 80 bpm with upright P and T waves. Patient was afebrile One view chest x-ray performed, read by me revealed cardiomegaly and bilateral pulmonary vascular congestion, no acute infiltrates, no pneumothorax. EKG performed, read by me revealed a normal sinus rhythm at 78 bpm, normal axis , right ventricular conduction delay with a QRS duration of 114 ms, LVH, no concerning ST elevations or depressions noted. I administered aspirin 162 mg p.o. for cardioprotective measures, nitroglycerin 0.4 mg sublingual, and furosemide 40 mg IV for CHF. CBC was unremarkable, electrolytes normal, liver function tests normal, troponin negative. Patient's chest pain resolved and appears comfortable at this time although given his past medical history and today's concerning symptoms he will be admitted to telemetry setting for continued medical management and cardiology consultation. Departure Diagnosis: Primary Impression: Chest pain Chest pain type: chest pain due to myocardial ischemia Ischemic chest pain type: unstable angina pectoris Qualified Code: I20.0 - Unstable angina pectoris Additional Impressions: CHF (congestive heart failure) Congestive heart failure type: systolic Congestive heart failure chronicity: acute Qualified Code: I50.21 - Acute systolic congestive heart failure Hypertension Hypertension type: essential hypertension Qualified Code: I10 - Essential hypertension Unstable angina Condition: KANCHAN Coppola MD Aug 28, 2017 23:56
[2017-08-29] VITALS (12 sets, daily range): BP systolic 131–160; BP diastolic 71–82; PULSE 52–71; RESP 17–20; Ht 177.8 cm; Wt 94.2 kg
[2017-08-29] MEDS ORDERED: FUROSEMIDE 40 MG INJ IV ONE
[2017-08-29] MEDS ORDERED: LORAZEPAM 0.5 MG TAB PO PRN (02:00)
[2017-08-29] MEDS ORDERED: ACETAMINOPHEN 325 MG TAB PO PRN (02:00)
[2017-08-29] MEDS ORDERED: NACL 0.9% 3 ML SYG IV SCH (02:00)
[2017-08-29] MEDS ORDERED: ONDANSETRON 4 MG INJ IV PRN (02:00)
[2017-08-29] MEDS ORDERED: ALBUTEROL/IPRATROPIUM (NEB) 3 ML AMP HHN PRN (02:00)
[2017-08-29] MEDS ORDERED: morphine 2 MG INJ IV PRN (02:00)
[2017-08-29] MEDS ORDERED: FUROSEMIDE 40 MG TAB PO SCH (06:00)
[2017-08-29] MEDS: PANTOPRAZOLE (EC) 40 MG TAB PO SCH (06:30)
[2017-08-29 07:02] LABS: BASOPHILS % 0.4 % (0.0-2.0); EOSINOPHILS # 0.1 10^3/ul (0.0-0.5); EOSINOPHILS % 1.6 % (0.0-7.0); HEMATOCRIT 39.4 % (42.0-52.0); HEMOGLOBIN 12.7 g/dl (14.0-18.0); LYMPHOCYTES # 3.2 10^3/ul (0.8-2.9); LYMPHOCYTES % 41.5 % (15.0-51.0); MEAN CORPUSCULAR HEMOGLOBIN 29.7 pg (29.0-33.0); MEAN CORPUSCULAR HGB CONC 32.2 g/dl (32.0-37.0); MEAN CORPUSCULAR VOLUME 92.3 fl (82.0-101.0); MEAN PLATELET VOLUME 11.8 fl (7.4-10.4); MONOCYTE # 0.6 10^3/ul (0.3-0.9); MONOCYTES % 8.1 % (0.0-11.0); NEUTROPHIL # 3.7 10^3/ul (1.6-7.5); NEUTROPHILS % 48.1 % (39.0-77.0); PLATELET COUNT 182 10^3/UL (140-415); RED BLOOD COUNT 4.27 10^6/ul (4.70-6.10); WHITE BLOOD COUNT 7.7 10^3/ul (4.8-10.8)
--- NOTE | 2017-08-29 07:05 | HP ---
Date/Time of Note Date/Time of Note DATE: 08/29/17 TIME: 06:58 Assessment/Plan VTE Prophylaxis VTE Prophylaxis Intervention: heparin Lines/Catheters IV Catheter Type (from Nrsg): Peripheral IV Assessment/Plan Assessment/Plan 1. Chest pain, rule out ACS -Continue telemetry monitoring -Supplemental oxygen -Continue home medication, which include Plavix, beta-jerardo, statin, ARB -Trend troponin -2D echo last months with EF of 40% -Cardiology consult 2. Acute on chronic CHF, systolic -Continue Lasix and his cardiac medications -Monitor urine output 3. History of CAD, s/p PCI with stent in 2012 -Continue cardiac meds -See #1 4. Insulin-dependent diabetes with hyperglycemia -Adjust insulin as needed for better glycemic control HPI/ROS Admit Date/Time Admit Date/Time Aug 28, 2017 at 23:44 Hx of Present Illness This is a 62-year-old male with a history of diabetes hypertension CAD status post PCI with stent in 2012 and a CHF with systolic dysfunction with EF of 40%, noncompliance who presented to the emergency department complaining of chest pain. Chest pain is substernal with no radiation was associated shortness of breath. He said he gets chest pain frequently for which he takes nitroglycerin with improvement in the relief of chest pain. He was last admitted here a month ago for CHF exacerbation. He was diuresed with removal of 8 L of fluid and was discharged home in stable condition. When he presented to the ER today, vitals were stable. Chest x-ray shows mild failure. Labs shows a glucose of almost 300 otherwise CBC and CMP are within acceptable range. First troponin is negative. EKG was no ST-T wave abnormalities. PMH/Family/Social Social History Smoking Status: Former smoker Exam/Review of Systems Vital Signs Vitals Vital Signs Date Time Temp Pulse Resp B/P Pulse Ox O2 Delivery O2 Flow Rate FiO2 08/29/17 04:00 97.7 58 20 141/75 100 08/29/17 01:15 Nasal Cannula 3.0 Intake and Output 08/28/17 08/28/17 08/29/17 15:00 23:00 07:00 Intake Total 150 ml Balance 150 ml Exam Constitutional: alert, oriented, well developed Head: atraumatic, normocephalic Eyes: EOMI, PERRL Respiratory: other (Mildly decreased breath sounds at the bases bilaterally) Cardiovascular: other (Bradycardic with regular rhythm) Gastrointestinal: non-tender, soft Extremities: normal pulses Labs Result Diagram: 08/28/17221908/28/172219 Medications Medications Current Medications Lorazepam (Ativan) 0.5 mg Q8H PRN PO ANXIETY; Start 08/29/17 at 02:00 Ondansetron HCl (Zofran Inj) 4 mg Q6H PRN IV NAUSEA AND/OR VOMITING; Start at 02:00 Furosemide (Lasix) 40 mg DAILY IV ; Start 08/29/17 at 09:00 Nitroglycerin (Nitroglycerin (Sl Tab) 0.4 Mg) 1 tab Q5M PRN SL CHEST PAIN; Start 08/29/17 at 02:00 Acetaminophen (Tylenol Tab) 650 mg Q6H PRN PO PAIN LEVEL 1-3 OR FEVER; Start 08/29/17 at 02:00 Morphine Sulfate (morphine) 2 mg Q4H PRN IV PAIN LEVEL 7-10; Start 08/29/17 at 02:00 Enoxaparin Sodium (Lovenox) 40 mg DAILY SC ; Start 08/29/17 at 09:00 Aspirin (Aspirin) 81 mg DAILY PO ; Start 08/29/17 at 09:00 Atorvastatin Calcium (Lipitor) 20 mg DAILY PO ; Start 08/29/17 at 09:00 Carvedilol (Coreg) 6.25 mg BID PO ; Start 08/29/17 at 09:00 Clopidogrel Bisulfate (plaVIX) 75 mg DAILY PO ; Start 08/29/17 at 09:00 Insulin Glargine (Lantus) 20 unit DAILY@08 SC ; Start 08/29/17 at 08:00 Pantoprazole (Protonix Tab) 40 mg DAILY@06 PO Last administered on 08/29/17t 06:30; Admin Dose 40 MG; Start 08/29/17 at 06:00 Valsartan (Diovan) 80 mg BID PO ; Start 08/29/17 at 09:00 SHIRLEY JEAN MD Aug 29, 2017 07:05
[2017-08-29 07:23] LABS: ALBUMIN 3.7 g/dl (3.3-4.9); ALBUMIN/GLOBULIN RATIO 1.12; BILIRUBIN,INDIRECT 0.5 mg/dl (0-1.1); BILIRUBIN,TOTAL 0.5 mg/dl (0.2-1.3); CREATININE 0.79 mg/dl (0.61-1.24); MAGNESIUM 1.9 mg/dl (1.7-2.5); POTASSIUM 3.6 mmol/L (3.5-5.1)
[2017-08-29] MEDS: INSULIN GLARGINE [LANtus] 3 ML PEN SC SCH (08:33)
[2017-08-29] MEDS: ENOXAPARIN 40 MG/0.4 ML SYG SC SCH (08:34)
[2017-08-29] MEDS: VALSARTAN 80 MG TAB PO SCH ×2 (08:37→21:00)
[2017-08-29] MEDS: FUROSEMIDE 40 MG INJ IV SCH (08:37)
[2017-08-29] MEDS: ATORVASTATIN 20 MG TAB PO SCH (08:37)
[2017-08-29] MEDS: CLOPIDOGREL 75 MG TAB PO SCH (08:38)
[2017-08-29] MEDS ORDERED: ASPIRIN 81 MG TAB PO SCH (09:00)
--- NOTE | 2017-08-29 10:20 | PN ---
Date/Time of Note Date/Time of Note DATE: 08/29/17 TIME: : Assessment/Plan VTE Prophylaxis VTE Prophylaxis Intervention: LMWH Lines/Catheters IV Catheter Type (from [facility]): Peripheral IV Assessment/Plan Chief Complaint/Hosp Course Assessment/Plan: 62-year-old male with a history of diabetes hypertension CAD status post PCI with stent in 2012 and a CHF with systolic dysfunction with EF of 40%, noncompliance who presented to the emergency department complaining of chest pain. 1. Chest pain, rule out ACS - 2D echo last month with EF of 40% -Continue telemetry monitoring -Supplemental oxygen -Continue home medication, which include Plavix, beta-jerardo (will lower this dose today given mild bradycardia), statin, ARB -Trend troponin -Cardiology consult pending 2. Acute on chronic CHF, systolic -BNP equals 880. -Continue Lasix and his cardiac medications -Monitor urine output 3. History of CAD, s/p PCI with stent in 2012 -Continue cardiac meds -See #1 4. Insulin-dependent diabetes with hyperglycemia -Adjust insulin as needed for better glycemic control -add ISS Problems: Subjective 24 Hr Interval Summary Free Text/Dictation Patient denies chest pain presently. Exam/Review of Systems Vital Signs Vitals Vital Signs Date Time Temp Pulse Resp B/P Pulse Ox O2 Delivery O2 Flow Rate FiO2 08/29/17 08:03 52 08/29/17 07:37 97.8 18 131/74 99 08/29/17 01:15 Nasal Cannula 3.0 Intake and Output 08/28/17 08/28/17 08/29/17 15:00 23:00 07:00 Intake Total 150 ml Balance 150 ml Exam Constitutional: alert, oriented, well developed Head: atraumatic, normocephalic Eyes: EOMI, PERRL Respiratory: other (Mildly decreased breath sounds at the bases bilaterally) Cardiovascular: other (Bradycardic with regular rhythm) Gastrointestinal: non-tender, soft Extremities: normal pulses Results Result Diagram: 08/29/17 0553 08/29/17 0553 Results 24 hrs Laboratory Tests Test 08/28/17 22:20 08/29/17 05:53 08/29/17 08:05 White Blood Count 8.0 # 7.7 Red Blood Count 4.23 L 4.27 L Hemoglobin 13.0 L 12.7 L Hematocrit 39.0 L 39.4 L Mean Corpuscular Volume 92.2 92.3 Mean Corpuscular Hemoglobin 30.7 29.7 Mean Corpuscular Hemoglobin Concent 33.3 32.2 Red Cell Distribution Width 12.8 13.0 Platelet Count 169 182 Mean Platelet Volume 11.5 H 11.8 H Neutrophils % 45.0 48.1 Lymphocytes % 45.6 41.5 Monocytes % 7.0 8.1 Eosinophils % 1.6 1.6 Basophils % 0.5 0.4 Nucleated Red Blood Cells % 0.0 0.0 Neutrophils # 3.6 3.7 Lymphocytes # 3.6 H 3.2 H Monocytes # 0.6 0.6 Eosinophils # 0.1 0.1 Basophils # 0.0 0.0 Nucleated Red Blood Cells # 0.0 0.0 Sodium Level 141 146 H Potassium Level 4.1 3.6 Chloride Level 105 106 Carbon Dioxide Level 26 32 H Anion Gap 14 12 Blood Urea Nitrogen 20 18 Creatinine 0.74 0.79 Glucose Level 287 H 109 # Calcium Level 9.0 9.0 Total Bilirubin 0.3 0.5 Direct Bilirubin 0.00 0.00 Indirect Bilirubin 0.3 0.5 Aspartate Amino Transf (AST/SGOT) 28 24 Alanine Aminotransferase (ALT/SGPT) 33 37 Alkaline Phosphatase 77 59 Troponin I < 0.012 B-Type Natriuretic Peptide 884 H Total Protein 7.1 7.0 Albumin 4.5 3.7 Globulin 2.60 3.30 H Albumin/Globulin Ratio 1.73 1.12 Lipase 75 Magnesium Level 1.9 Bedside Glucose 123 Medications Medications Current Medications Lorazepam (Ativan) 0.5 mg Q8H PRN PO ANXIETY; Start 08/29/17 at 02:00 Ondansetron HCl (Zofran Inj) 4 mg Q6H PRN IV NAUSEA AND/OR VOMITING; Start at 02:00 Furosemide (Lasix) 40 mg DAILY IV Last administered on 08/29/17t 08:37; Admin Dose 40 MG; Start 08/29/17 at 09:00 Nitroglycerin (Nitroglycerin (Sl Tab) 0.4 Mg) 1 tab Q5M PRN SL CHEST PAIN; Start 08/29/17 at 02:00 Acetaminophen (Tylenol Tab) 650 mg Q6H PRN PO PAIN LEVEL 1-3 OR FEVER; Start 08/29/17 at 02:00 Morphine Sulfate (morphine) 2 mg Q4H PRN IV PAIN LEVEL 7-10; Start 08/29/17 at 02:00 Enoxaparin Sodium (Lovenox) 40 mg DAILY SC Last administered on 08/29/17 08: 34; Admin Dose 40 MG; Start 08/29/17 at 09:00 Aspirin (Aspirin) 81 mg DAILY PO Last administered on 08/29/17 08:37; Admin Dose 81 MG; Start 08/29/17 at 09:00 Atorvastatin Calcium (Lipitor) 20 mg DAILY PO Last administered on 08/29/17 08:37; Admin Dose 20 MG; Start 08/29/17 at 09:00 Clopidogrel Bisulfate (plaVIX) 75 mg DAILY PO Last administered on 08/29/17 08:38; Admin Dose 75 MG; Start 08/29/17 at 09:00 Insulin Glargine (Lantus) 20 unit DAILY@08 SC Last administered on 08/29/17 08:33; Admin Dose 20 UNIT; Start 08/29/17 at 08:00 Pantoprazole (Protonix Tab) 40 mg DAILY@06 PO Last administered on 08/29/17 06:30; Admin Dose 40 MG; Start 08/29/17 at 06:00 Valsartan (Diovan) 80 mg BID PO Last administered on 08/29/17 08:37; Admin Dose 80 MG; Start 08/29/17 at 09:00 Miscellaneous Information (* Miscellaneous Pharmacy Order) Discontinue current oral sulfonylur... ONCE ONCE XX ; Start 08/29/17 at 10:30; Stop 08/29/17 at 10:31; Status UNV Diagnostic Test (Pha) (Accu-Chek) 1 XX ; Start 08/30/17 at 02:00; Status UNV Miscellaneous Information (* Miscellaneous Pharmacy Order) HYPOGLYCEMIA PROTOCOL w... ONCE ONCE XX ; Start 08/29/17 at 10:30; Stop 08/29/17 at 10:31 ; Status UNV Miscellaneous Information (* Miscellaneous Pharmacy Order) Discontinue all previ... ONCE ONCE XX ; Start 08/29/17 at 10:30; Stop 08/29/17 at 10:31; Status UNV Diagnostic Test (Pha) (Accu-Chek) 1 ea 02 XX ; Start 08/30/17 at 02:00; Status UNV Carvedilol (Coreg) 3.125 mg BID PO ; Start 08/29/17 at 21:00; Status UNV RAFFAELE TOLENTINO Aug 29, 2017 10:20
[2017-08-29] MEDS ORDERED: GLUCOSE GEL 15 GRAM TUBE PO PRN ×2 (10:30)
[2017-08-29] MEDS ORDERED: DEXTROSE 50% 50 ML SYRINGE IV PRN ×2 (10:30)
[2017-08-29] MEDS ORDERED: GLUCOSE GEL 15 GRAM TUBE BUCCAL PRN (10:30)
[2017-08-29] MEDS ORDERED: GLUCAGON 1 MG INJ IM PRN (10:30)
[2017-08-29] MEDS: INSULIN ASPART [NOVOLOG] 3 ML PEN SC SCH ×3 (11:56→21:03)
[2017-08-29] MEDS: NITROGLYCERIN (SL) 0.4 MG TAB SL PRN ×2 (18:43→18:49)
--- NOTE | 2017-08-29 18:46 | CONS ---
Date/Time of Note Date/Time of Note DATE: 08/29/17 TIME: 18:35 Assessment/Plan Assessment/Plan Chief Complaint/Hosp Course Assessment: Unstable angina Acute on chronic systolic heart failure Ischemic cardiomyopathy - LVEF 40% on echocardiogram 07/19/2017 Coronary artery disease - multiple coronary stents, most recently in 2012 Diabetes mellitus History of medication noncompliance - patient now reports compliance including with aspirin and clopidogrel Recommendations: -diuresis on Lasix 40mg IV daily -continue aspirin at 325mg daily and clopidogrel 75mg daily -continue carvedilol 3.125mg BID and valsartan 80mg BID -continue atorvastatin 20mg daily -will not repeat echocardiogram at this time -arrange for coronary angiography Problems: Consultation Date/Type/Reason Admit Date/Time Aug 28, 2017 at 23:44 Type of Consultation: Cardiology Reason for Consultation chest pain Hx of Present Illness The patient is a 62 year-old male with ischemic cardiomyopathy who presented with chest pain. He describes two to three days of recurrent chest pressure with increased frequency and that is no longer relieved by his usual nitroglycerin. EKG showed sinus rhythm, left ventricular hypertrophy with repolarization abnormalities, and inferior Q waves. Troponins have been negative x 2. He has coronary artery disease with last coronary stenting in 2012. He was recently hospitalized in July 2017 with decompensated heart failure and mild troponin elevation to 0.4. Coronary angiography was deferred at that time given likely type 2 NSTEMI and concern with reported history of medication noncompliance. The patient now states he has been compliant with all of his medications including aspirin and clopidogrel. 14 point review of systems negative other than per HPI. Past Medical History Chronic systolic heart failure Ischemic cardiomyopathy, LVEF 40% Coronary artery disease - multiple coronary stents, most recently in 2012 Diabetes mellitus Family History Significant Family History: no pertinent family hx Social History Smoking Status: Former smoker Exam/Review of Systems Vital Signs Vitals Vital Signs Date Time Temp Pulse Resp B/P Pulse Ox O2 Delivery O2 Flow Rate FiO2 08/29/17 16:12 Nasal Cannula 2.0 08/29/17 16:07 58 08/29/17 15:12 98.4 17 132/71 98 Intake and Output 08/28/17 08/28/17 08/29/17 15:00 23:00 07:00 Intake Total 150 ml Balance 150 ml Exam Constitutional: alert, well developed Psych: nl mood/affect, no complaints Head: atraumatic, normocephalic Eyes: nl conjunctiva, nl lids ENMT: nl external ears & nose, nl nasal mucosa & septum Neck: non-tender, supple Respiratory: diminished breath sounds, No wheezing Cardiovascular: regular rate and rhythm, No murmurs/extra sounds Gastrointestinal: non-tender, soft Musculoskeletal: nl extremities to inspection, No joint tenderness Extremities: No clubbing, No cyanosis, No edema Neurological: nl mental status, nl speech Skin: nl turgor Results Result Diagram: 08/29/17 0553 08/29/17 0553 Results 24 hrs Laboratory Tests Test 08/28/17 22:20 08/29/17 05:53 08/29/17 08:05 08/29/17 11:52 White Blood Count 8.0 # 7.7 Red Blood Count 4.23 L 4.27 L Hemoglobin 13.0 L 12.7 L Hematocrit 39.0 L 39.4 L Mean Corpuscular Volume 92.2 92.3 Mean Corpuscular Hemoglobin 30.7 29.7 Mean Corpuscular Hemoglobin Concent 33.3 32.2 Red Cell Distribution Width 12.8 13.0 Platelet Count 169 182 Mean Platelet Volume 11.5 H 11.8 H Neutrophils % 45.0 48.1 Lymphocytes % 45.6 41.5 Monocytes % 7.0 8.1 Eosinophils % 1.6 1.6 Basophils % 0.5 0.4 Nucleated Red Blood Cells % 0.0 0.0 Neutrophils # 3.6 3.7 Lymphocytes # 3.6 H 3.2 H Monocytes # 0.6 0.6 Eosinophils # 0.1 0.1 Basophils # 0.0 0.0 Nucleated Red Blood Cells # 0.0 0.0 Sodium Level 141 146 H Potassium Level 4.1 3.6 Chloride Level 105 106 Carbon Dioxide Level 26 32 H Anion Gap 14 12 Blood Urea Nitrogen 20 18 Creatinine 0.74 0.79 Glucose Level 287 H 109 # Calcium Level 9.0 9.0 Total Bilirubin 0.3 0.5 Direct Bilirubin 0.00 0.00 Indirect Bilirubin 0.3 0.5 Aspartate Amino Transf (AST/SGOT) 28 24 Alanine Aminotransferase (ALT/SGPT) 33 37 Alkaline Phosphatase 77 59 Troponin I < 0.012 B-Type Natriuretic Peptide 884 H Total Protein 7.1 7.0 Albumin 4.5 3.7 Globulin 2.60 3.30 H Albumin/Globulin Ratio 1.73 1.12 Lipase 75 Magnesium Level 1.9 Bedside Glucose 123 166 Test 08/29/17 15:52 08/29/17 18:22 Troponin I < 0.012 Bedside Glucose 211 Medications Medications Current Medications Lorazepam (Ativan) 0.5 mg Q8H PRN PO ANXIETY; Start 08/29/17 at 02:00 Ondansetron HCl (Zofran Inj) 4 mg Q6H PRN IV NAUSEA AND/OR VOMITING; Start at 02:00 Furosemide (Lasix) 40 mg DAILY IV Last administered on 08/29/17 08:37; Admin Dose 40 MG; Start 08/29/17 at 09:00 Nitroglycerin (Nitroglycerin (Sl Tab) 0.4 Mg) 1 tab Q5M PRN SL CHEST PAIN; Start 08/29/17 at 02:00 Acetaminophen (Tylenol Tab) 650 mg Q6H PRN PO PAIN LEVEL 1-3 OR FEVER; Start 08/29/17 at 02:00 Morphine Sulfate (morphine) 2 mg Q4H PRN IV PAIN LEVEL 7-10; Start 08/29/17 at 02:00 Enoxaparin Sodium (Lovenox) 40 mg DAILY SC Last administered on 08/29/17 08: 34; Admin Dose 40 MG; Start 08/29/17 at 09:00 Aspirin (Aspirin) 81 mg DAILY PO Last administered on 08/29/17 08:37; Admin Dose 81 MG; Start 08/29/17 at 09:00 Atorvastatin Calcium (Lipitor) 20 mg DAILY PO Last administered on 08/29/17 08:37; Admin Dose 20 MG; Start 08/29/17 at 09:00 Clopidogrel Bisulfate (plaVIX) 75 mg DAILY PO Last administered on 08/29/17 08:38; Admin Dose 75 MG; Start 08/29/17 at 09:00 Insulin Glargine (Lantus) 20 unit DAILY@08 SC Last administered on 08/29/17 08:33; Admin Dose 20 UNIT; Start 08/29/17 at 08:00 Pantoprazole (Protonix Tab) 40 mg DAILY@06 PO Last administered on 08/29/17 06:30; Admin Dose 40 MG; Start 08/29/17 at 06:00 Valsartan (Diovan) 80 mg BID PO Last administered on 08/29/17t 08:37; Admin Dose 80 MG; Start 08/29/17 at 09:00 Diagnostic Test (Pha) (Accu-Chek) 1 ea 02 XX ; Start 08/30/17 at 02:00 Diagnostic Test (Pha) (Accu-Chek) 1 ea 02 XX ; Start 08/30/17 at 02:00 Carvedilol (Coreg) 3.125 mg BID PO ; Start 08/29/17 at 21:00 Miscellaneous Information 1 ea NOTE XX ; Start 08/29/17 at 10:30 Glucose (Glutose) 15 gm Q15M PRN PO DECREASED GLUCOSE; Start 08/29/17 at 10:30 Glucose (Glutose) 22.5 gm Q15M PRN PO DECREASED GLUCOSE; Start 08/29/17 at 10: 30 Dextrose (D50w Syringe) 25 ml Q15M PRN IV DECREASED GLUCOSE; Start 08/29/17 at 10:30 Dextrose (D50w Syringe) 50 ml Q15M PRN IV DECREASED GLUCOSE; Start 08/29/17 at 10:30 Glucagon (Glucagen) 1 mg Q15M PRN IM DECREASED GLUCOSE; Start 08/29/17 at 10: 30 Glucose (Glutose) 15 gm Q15M PRN BUCCAL DECREASED GLUCOSE; Start 08/29/17 at 10:30 LEONOR VELASQUEZ MD Aug 29, 2017 18:45
[2017-08-30] VITALS (13 sets, daily range): BP systolic 140–170; BP diastolic 72–94; PULSE 57–76; RESP 17–18
[2017-08-30] MEDS: ACCU-CHEK XX SCH ×2 (02:00)
[2017-08-30 06:21] LABS: BASOPHILS % 0.4 % (0.0-2.0); EOSINOPHILS # 0.1 10^3/ul (0.0-0.5); EOSINOPHILS % 1.4 % (0.0-7.0); HEMATOCRIT 41.7 % (42.0-52.0); HEMOGLOBIN 13.8 g/dl (14.0-18.0); LYMPHOCYTES # 3.3 10^3/ul (0.8-2.9); LYMPHOCYTES % 38.7 % (15.0-51.0); MEAN CORPUSCULAR HEMOGLOBIN 30.2 pg (29.0-33.0); MEAN CORPUSCULAR HGB CONC 33.1 g/dl (32.0-37.0); MEAN CORPUSCULAR VOLUME 91.2 fl (82.0-101.0); MEAN PLATELET VOLUME 11.8 fl (7.4-10.4); MONOCYTE # 0.7 10^3/ul (0.3-0.9); MONOCYTES % 7.8 % (0.0-11.0); NEUTROPHIL # 4.3 10^3/ul (1.6-7.5); NEUTROPHILS % 51.3 % (39.0-77.0); PLATELET COUNT 186 10^3/UL (140-415); RED BLOOD COUNT 4.57 10^6/ul (4.70-6.10); RED CELL DISTRIBUTION WIDTH 12.9 % (11.5-14.5); WHITE BLOOD COUNT 8.5 10^3/ul (4.8-10.8)
[2017-08-30] MEDS: PANTOPRAZOLE (EC) 40 MG TAB PO SCH (06:43)
[2017-08-30 06:54] LABS: CALCIUM 9.5 mg/dl (8.4-10.2); CREATININE 0.83 mg/dl (0.61-1.24); MAGNESIUM 1.9 mg/dl (1.7-2.5); PHOSPHORUS 4.2 mg/dl (2.5-4.9); POTASSIUM 3.8 mmol/L (3.5-5.1)
[2017-08-30] MEDS: INSULIN ASPART [NOVOLOG] 3 ML PEN SC SCH ×4 (07:58→20:56)
[2017-08-30] MEDS: INSULIN GLARGINE [LANtus] 3 ML PEN SC SCH (08:00)
[2017-08-30] MEDS: ENOXAPARIN 40 MG/0.4 ML SYG SC SCH (08:27)
[2017-08-30] MEDS: ASPIRIN 325 MG TAB PO SCH (08:28)
[2017-08-30] MEDS: FUROSEMIDE 40 MG INJ IV SCH (08:28)
[2017-08-30] MEDS: ATORVASTATIN 20 MG TAB PO SCH (08:29)
[2017-08-30] MEDS: VALSARTAN 80 MG TAB PO SCH (08:29)
[2017-08-30] MEDS: CLOPIDOGREL 75 MG TAB PO SCH (08:29)
--- NOTE | 2017-08-30 11:12 | PN ---
Date/Time of Note Date/Time of Note DATE: 08/30/17 TIME: 11:05 Assessment/Plan VTE Prophylaxis VTE Prophylaxis Intervention: LMWH Lines/Catheters IV Catheter Type (from [facility]): [place] Assessment/Plan Chief Complaint/Hosp Course Assessment/Plan: 62-year-old male with a history of diabetes hypertension CAD status post PCI with stent in 2012 and a CHF with systolic dysfunction with EF of 40%, noncompliance who presented to the emergency department complaining of chest pain. 1. Chest pain -has ruled out for ACS - 2D echo last month with EF of 40% -Continue telemetry monitoring -Supplemental oxygen -Continue home medication, which include Plavix, beta-jerardo, statin, ARB -Cardiology consult -they are recommending possible angiogram for patient, follow-up 2. Acute on chronic CHF, systolic -BNP equals 880 on admission. -Continue Lasix and his cardiac medications -Monitor urine output 3. History of CAD, s/p PCI with stent in 2012 -Continue cardiac meds -See #1 4. Insulin-dependent diabetes with hyperglycemia -Adjust insulin as needed for better glycemic control -ISS Problems: Subjective 24 Hr Interval Summary Free Text/Dictation Patient seen by cardiology team yesterday, presently denies any chest pain. No acute events overnight. Exam/Review of Systems Vital Signs Vitals Vital Signs Date Time Temp Pulse Resp B/P Pulse Ox O2 Delivery O2 Flow Rate FiO2 08/30/17 08:02 73 08/30/17 07:24 97.8 18 166/82 96 08/30/17 00:46 2.0 08/29/17 21:00 Nasal Cannula Intake and Output 08/29/17 08/29/17 08/30/17 15:00 23:00 07:00 Intake Total 1000 ml 100 ml Balance 1000 ml 100 ml Exam Constitutional: alert, oriented, well developed Head: atraumatic, normocephalic Eyes: EOMI, PERRL Respiratory: other (Mildly decreased breath sounds at the bases bilaterally) Cardiovascular: other (Bradycardic with regular rhythm) Gastrointestinal: non-tender, soft Extremities: normal pulses Results Result Diagram: 08/30/1721 08/30/17520 Results 24 hrs Laboratory Tests Test 08/29/17 11:52 08/29/17 15:52 08/29/17 18:22 08/29/17 20:54 Bedside Glucose 166 211 156 Troponin I < 0.012 Test 08/29/17 22:10 08/30/17 02:03 08/30/17 05:21 08/30/17 07:51 Troponin I < 0.012 < 0.012 Bedside Glucose 107 159 White Blood Count 8.5 Red Blood Count 4.57 L Hemoglobin 13.8 L Hematocrit 41.7 L Mean Corpuscular Volume 91.2 Mean Corpuscular Hemoglobin 30.2 Mean Corpuscular Hemoglobin Concent 33.1 Red Cell Distribution Width 12.9 Platelet Count 186 Mean Platelet Volume 11.8 H Neutrophils % 51.3 Lymphocytes % 38.7 Monocytes % 7.8 Eosinophils % 1.4 Basophils % 0.4 Nucleated Red Blood Cells % 0.0 Neutrophils # 4.3 Lymphocytes # 3.3 H Monocytes # 0.7 Eosinophils # 0.1 Basophils # 0.0 Nucleated Red Blood Cells # 0.0 Sodium Level 143 Potassium Level 3.8 Chloride Level 104 Carbon Dioxide Level 33 H Anion Gap 10 Blood Urea Nitrogen 17 Creatinine 0.83 Glucose Level 115 Calcium Level 9.5 Phosphorus Level 4.2 Magnesium Level 1.9 Medications Medications Current Medications Lorazepam (Ativan) 0.5 mg Q8H PRN PO ANXIETY; Start 08/29/17 at 02:00 Ondansetron HCl (Zofran Inj) 4 mg Q6H PRN IV NAUSEA AND/OR VOMITING; Start at 02:00 Furosemide (Lasix) 40 mg DAILY IV Last administered on 08/30/17 08:28; Admin Dose 40 MG; Start 08/29/17 at 09:00 Nitroglycerin (Nitroglycerin (Sl Tab) 0.4 Mg) 1 tab Q5M PRN SL CHEST PAIN Last administered on 08/29/17 18:49; Admin Dose 1 TAB; Start 08/29/17 at 02:00 Acetaminophen (Tylenol Tab) 650 mg Q6H PRN PO PAIN LEVEL 1-3 OR FEVER; Start 08/29/17 at 02:00 Morphine Sulfate (morphine) 2 mg Q4H PRN IV PAIN LEVEL 7-10; Start 08/29/17 at 02:00 Enoxaparin Sodium (Lovenox) 40 mg DAILY SC Last administered on 08/30/17 08: 27; Admin Dose 40 MG; Start 08/29/17 at 09:00 Atorvastatin Calcium (Lipitor) 20 mg DAILY PO Last administered on 08/30/17 08:29; Admin Dose 20 MG; Start 08/29/17 at 09:00 Clopidogrel Bisulfate (plaVIX) 75 mg DAILY PO Last administered on 08/30/17 08:29; Admin Dose 75 MG; Start 08/29/17 at 09:00 Insulin Glargine (Lantus) 20 unit DAILY@08 SC Last administered on 08/30/17 08:00; Admin Dose 20 UNIT; Start 08/29/17 at 08:00 Pantoprazole (Protonix Tab) 40 mg DAILY@06 PO Last administered on 08/30/17 06:43; Admin Dose 40 MG; Start 08/29/17 at 06:00 Valsartan (Diovan) 80 mg BID PO Last administered on 08/30/17 08:29; Admin Dose 80 MG; Start 08/29/17 at 09:00 Diagnostic Test (Pha) (Accu-Chek) 1 ea 02 XX ; Start 08/30/17 at 02:00 Diagnostic Test (Pha) (Accu-Chek) 1 ea 02 XX ; Start 08/30/17 at 02:00 Carvedilol (Coreg) 3.125 mg BID PO Last administered on 08/30/17 08:29; Admin Dose 3.125 MG; Start 08/29/17 at 21:00 Miscellaneous Information 1 ea NOTE XX ; Start 08/29/17 at 10:30 Glucose (Glutose) 15 gm Q15M PRN PO DECREASED GLUCOSE; Start 08/29/17 at 10:30 Glucose (Glutose) 22.5 gm Q15M PRN PO DECREASED GLUCOSE; Start 08/29/17 at 10: 30 Dextrose (D50w Syringe) 25 ml Q15M PRN IV DECREASED GLUCOSE; Start 08/29/17 at 10:30 Dextrose (D50w Syringe) 50 ml Q15M PRN IV DECREASED GLUCOSE; Start 08/29/17 at 10:30 Glucagon (Glucagen) 1 mg Q15M PRN IM DECREASED GLUCOSE; Start 08/29/17 at 10: 30 Glucose (Glutose) 15 gm Q15M PRN BUCCAL DECREASED GLUCOSE; Start 08/29/17 at 10:30 Aspirin (Aspirin) 325 mg DAILY PO Last administered on 08/30/17 08:28; Admin Dose 325 MG; Start 08/30/17 at 09:00 RAFFAELE TOLENTINO Aug 30, 2017 11:12
--- NOTE | 2017-08-30 19:03 | CONS ---
Date/Time of Note Date/Time of Note DATE: 08/30/17 TIME: 18:59 Assessment/Plan Assessment/Plan Chief Complaint/Hosp Course Assessment: Unstable angina Acute on chronic systolic heart failure Ischemic cardiomyopathy - LVEF 40% on echocardiogram 07/19/2017 Coronary artery disease - multiple coronary stents, most recently in 2012 Diabetes mellitus History of medication noncompliance - patient now reports compliance including with aspirin and clopidogrel Recommendations: -change Lasix to 40mg PO daily -continue aspirin at 325mg daily and clopidogrel 75mg daily -increase valsartan to 160mg BID -continue carvedilol 3.125mg BID -continue atorvastatin 20mg daily -coronary angiography tomorrow Problems: Consultation Date/Type/Reason Admit Date/Time Aug 28, 2017 at 23:44 Initial Consult Date Type of Consultation: Cardiology 24 HR Interval Summary Free Text/Dictation Still some intermittent chest pain. Detailed Summary Additional Comments 14 point review of systems without changes. Exam/Review of Systems Vital Signs Vitals Vital Signs Date Time Temp Pulse Resp B/P Pulse Ox O2 Delivery O2 Flow Rate FiO2 08/30/17 16:08 66 08/30/17 15:26 98.3 18 149/76 95 08/30/17 00:46 2.0 08/29/17 21:00 Nasal Cannula Intake and Output 08/29/17 08/29/17 08/30/17 15:00 23:00 07:00 Intake Total 1000 ml 100 ml Balance 1000 ml 100 ml Exam Constitutional: alert, well developed Psych: nl mood/affect, no complaints Head: atraumatic, normocephalic Eyes: nl conjunctiva, nl lids ENMT: nl external ears & nose, nl nasal mucosa & septum Neck: non-tender, supple Respiratory: diminished breath sounds, No wheezing Cardiovascular: regular rate and rhythm, No murmurs/extra sounds Gastrointestinal: non-tender, soft Musculoskeletal: nl extremities to inspection, No joint tenderness Extremities: No clubbing, No cyanosis, No edema Neurological: nl mental status, nl speech Skin: nl turgor Results Result Diagram: 08/30/1752008/30/17 05 Results 24 hrs Laboratory Tests Test 08/29/17 20:54 08/29/17 22:10 08/30/17 02:03 08/30/17 05:21 Bedside Glucose 156 107 Troponin I < 0.012 < 0.012 White Blood Count 8.5 Red Blood Count 4.57 L Hemoglobin 13.8 L Hematocrit 41.7 L Mean Corpuscular Volume 91.2 Mean Corpuscular Hemoglobin 30.2 Mean Corpuscular Hemoglobin Concent 33.1 Red Cell Distribution Width 12.9 Platelet Count 186 Mean Platelet Volume 11.8 H Neutrophils % 51.3 Lymphocytes % 38.7 Monocytes % 7.8 Eosinophils % 1.4 Basophils % 0.4 Nucleated Red Blood Cells % 0.0 Neutrophils # 4.3 Lymphocytes # 3.3 H Monocytes # 0.7 Eosinophils # 0.1 Basophils # 0.0 Nucleated Red Blood Cells # 0.0 Sodium Level 143 Potassium Level 3.8 Chloride Level 104 Carbon Dioxide Level 33 H Anion Gap 10 Blood Urea Nitrogen 17 Creatinine 0.83 Glucose Level 115 Calcium Level 9.5 Phosphorus Level 4.2 Magnesium Level 1.9 Test 08/30/17 07:51 08/30/17 11:36 Bedside Glucose 159 208 Medications Medications Current Medications Lorazepam (Ativan) 0.5 mg Q8H PRN PO ANXIETY; Start 08/29/17 at 02:00 Ondansetron HCl (Zofran Inj) 4 mg Q6H PRN IV NAUSEA AND/OR VOMITING; Start at 02:00 Furosemide (Lasix) 40 mg DAILY IV Last administered on 08/30/17 08:28; Admin Dose 40 MG; Start 08/29/17 at 09:00 Nitroglycerin (Nitroglycerin (Sl Tab) 0.4 Mg) 1 tab Q5M PRN SL CHEST PAIN Last administered on 08/29/17 18:49; Admin Dose 1 TAB; Start 08/29/17 at 02:00 Acetaminophen (Tylenol Tab) 650 mg Q6H PRN PO PAIN LEVEL 1-3 OR FEVER; Start 08/29/17 at 02:00 Morphine Sulfate (morphine) 2 mg Q4H PRN IV PAIN LEVEL 7-10; Start 08/29/17 at 02:00 Enoxaparin Sodium (Lovenox) 40 mg DAILY SC Last administered on 08/30/17 08: 27; Admin Dose 40 MG; Start 08/29/17 at 09:00 Atorvastatin Calcium (Lipitor) 20 mg DAILY PO Last administered on 08/30/17 08:29; Admin Dose 20 MG; Start 08/29/17 at 09:00 Clopidogrel Bisulfate (plaVIX) 75 mg DAILY PO Last administered on 08/30/17 08:29; Admin Dose 75 MG; Start 08/29/17 at 09:00 Insulin Glargine (Lantus) 20 unit DAILY@08 SC Last administered on 08/30/17 08:00; Admin Dose 20 UNIT; Start 08/29/17 at 08:00 Pantoprazole (Protonix Tab) 40 mg DAILY@06 PO Last administered on 08/30/17 06:43; Admin Dose 40 MG; Start 08/29/17 at 06:00 Valsartan (Diovan) 80 mg BID PO Last administered on 08/30/17 08:29; Admin Dose 80 MG; Start 08/29/17 at 09:00 Diagnostic Test (Pha) (Accu-Chek) 1 ea 02 XX ; Start 08/30/17 at 02:00 Diagnostic Test (Pha) (Accu-Chek) 1 ea 02 XX ; Start 08/30/17 at 02:00 Carvedilol (Coreg) 3.125 mg BID PO Last administered on 08/30/17 08:29; Admin Dose 3.125 MG; Start 08/29/17 at 21:00 Miscellaneous Information 1 ea NOTE XX ; Start 08/29/17 at 10:30 Glucose (Glutose) 15 gm Q15M PRN PO DECREASED GLUCOSE; Start 08/29/17 at 10:30 Glucose (Glutose) 22.5 gm Q15M PRN PO DECREASED GLUCOSE; Start 08/29/17 at 10: 30 Dextrose (D50w Syringe) 25 ml Q15M PRN IV DECREASED GLUCOSE; Start 08/29/17 at 10:30 Dextrose (D50w Syringe) 50 ml Q15M PRN IV DECREASED GLUCOSE; Start 08/29/17 at 10:30 Glucagon (Glucagen) 1 mg Q15M PRN IM DECREASED GLUCOSE; Start 08/29/17 at 10: 30 Glucose (Glutose) 15 gm Q15M PRN BUCCAL DECREASED GLUCOSE; Start 08/29/17 at 10:30 Aspirin (Aspirin) 325 mg DAILY PO Last administered on 08/30/17 08:28; Admin Dose 325 MG; Start 08/30/17 at 09:00 LEONOR VELASQUEZ MD Aug 30, 2017 19:03
[2017-08-30] MEDS: VALSARTAN 160 MG TAB PO SCH (20:47)
[2017-08-31] VITALS (18 sets, daily range): BP systolic 131–182; BP diastolic 67–100; PULSE 62–83; RESP 14–19
[2017-08-31] MEDS: ACCU-CHEK XX SCH ×2 (02:00)
[2017-08-31] MEDS: PANTOPRAZOLE (EC) 40 MG TAB PO SCH (05:54)
[2017-08-31] MEDS: hydrALAzine 20 MG INJ IV PRN ×2 (07:28→12:44)
[2017-08-31] MEDS: ENOXAPARIN 40 MG/0.4 ML SYG SC SCH (07:28)
[2017-08-31] MEDS: INSULIN ASPART [NOVOLOG] 3 ML PEN SC SCH ×4 (07:49→21:06)
[2017-08-31] MEDS: INSULIN GLARGINE [LANtus] 3 ML PEN SC SCH (08:04)
[2017-08-31] MEDS: ASPIRIN 325 MG TAB PO SCH (08:04)
[2017-08-31] MEDS: ATORVASTATIN 20 MG TAB PO SCH (08:05)
[2017-08-31] MEDS: VALSARTAN 160 MG TAB PO SCH ×2 (08:05→20:52)
[2017-08-31] MEDS: CLOPIDOGREL 75 MG TAB PO SCH (08:05)
[2017-08-31] MEDS: FUROSEMIDE 40 MG TAB PO SCH (08:05)
[2017-08-31] MEDS ORDERED: MIDAZOLAM 1 MG/ML 2 ML INJ ONE (08:22)
[2017-08-31] MEDS ORDERED: LIDOCAINE 1% (MDV) 20 ML INJ ONE (08:22)
[2017-08-31] MEDS ORDERED: IODIXANOL LOCM 100 ML BTL ONE ×2 (08:22→09:11)
[2017-08-31] MEDS ORDERED: FENTAnyl 50 MCG/ML VIAL ONE (08:22)
[2017-08-31] MEDS ORDERED: VERAPAMIL 5 MG INJ ONE (08:22)
[2017-08-31] MEDS ORDERED: HEPARIN 1000 UNITS/ML 10 ML INJ ONE (08:22)
[2017-08-31] MEDS ORDERED: NITROGLYCERIN (IC) 100 MCG/ML INJ ONE (08:23)
[2017-08-31] MEDS ORDERED: BIVALIRUDIN 250MG /NS 50 ML 0 ML IVPB ONE (09:04)
--- NOTE | 2017-08-31 09:47 | OPR ---
Date/Time of Note Date/Time of Note DATE: 08/31/17 TIME: 09:37 Operative Report Preoperative Diagnosis unstable angina Postoperative Diagnosis same Surgeon see signature line Textile Finisher none Anesthesia Type: moderate sedation Estimated Blood Loss: minimal Transfusion none Specimen none Grafts/Implants none Complications none Procedure Description Procedure Date: 08/31/17 Fast Food Shift Lead/surgeon:Chin Vega MD. Procedures Performed: 1)Left heart catheterization with selective left and right coronary angiography. 2)Left ventricle angiography Pre-operative Diagnosis:unstable angina Post-operative Diagnosis:same Indications:62 yo M iwith a h/o CAD s/p MS 2007 with PCI to RCA, PCI to LAD and Ramus 2012, ICM (40%), DM, who presented with chest pain and was found to have unstable angina. Description of Procedure: After informed consent, the patient was brought to the cardiac catheterization lab. The procedure site was prepped and draped in usual manner. The patient was premedicated with versed 2 mg and fentanyl 25 mcg. 2 mL lidocaine was injected into the right wrist. Next using the posterior wall technique, the 6/ 5 korean sheath was inserted into the right radial artery. Next using the JL3.0 and JR4, selective angiography of the left and right coronary arteries were obtained. The pigtail was then advanced into the ventricle and hemodynamics obtained. Left ventricle angiography was obtained. Next all equipment was removed and hemostasis was obtained by TR band. Findings: Anatomy/Hemodynamics: Left main:normal LAD: long stent with prox 80% ISR Diagonal:luminal irregularities Circumflex: small vessel with 100% mid LOSS PREVENTION GUARD and left-left collaterals (new since 2012) Ramus: Large vessel with patent prox-mid stent RCA:mid 100% LOSS PREVENTION GUARD at prior stent, left-right collaterals (new since 2012) LV angiography:EF 40%, inferior severe hypokinesis LV-Ao:no gradient LVEDP: 9 mmHg Contrast used:110 mL Fluoroscopy time:6.5 min Estimated blood loss<10 mL. Specimen: none Grafts/implants: none Complications: none Assessment: Unstable angina CAD with prox LAD ISR and complex mid RCA LOSS PREVENTION GUARD within stent. Would recommend CABG for complete revascularization in this diabetic male with reduced EF (40%). ICM (EF 40%) DM CHF Plan: -CABG eval -family would like a second opinion and apparently Dr. Gregg is familiar with the pt so will obtain a second opinion -continue ASA -hold plavix for now until decision for surgery CHIN VEGA Aug 31, 2017 09:47
--- NOTE | 2017-08-31 14:40 | CONS ---
Date/Time of Note Date/Time of Note DATE: 08/31/17 TIME: 14:36 Assessment/Plan Assessment/Plan Chief Complaint/Hosp Course 1. ACS 2. Multivessel CAD 3. ISCHEMIC CARDIOMYOPATHY 4. DM 5. HTN 6. CHF Rec cont ASA ntg inc coreg as tolerated. statin DM CONTROL ARB/ MARTY given his multivessel disease and DM, and stent resternosis and cardiomyopathy, (although multivessel PCI can be done) , CABG is the treatment of choice. will contact CT surgery for evaluation. pt needs to be off of plavix for 5-7 days as long as remains stable it has been emphasized to pt and his sister that he would need to be followed up regularly. pt to decide if he wants to cont to follow up with me or follow up with dr Webb. THANK YOU. RACHEL CALLAHAN MD [facility] Problems: Consultation Date/Type/Reason Admit Date/Time Aug 28, 2017 at 23:44 Date of Consultation: Aug 31, 2017 Type of Consultation: 2nd opinion Card consult Reason for Consultation CAD Hx of Present Illness CC: Chest pain HPI: This is a pleasant 62 year old Hebrew man with history of CAD, who was admitted with ACS and underwent mayur angio by Dr Wynn today. he has been recommended to undergo CABG and since pt was previously treated by me he has asked for 2nd opinion. he has had increasing anterior chest pain lately. his BP has been elevated as well. dw/ daughter and Dr Jacobs. allergy NKDA PMH: CAD: inf STEMI S/P PCI RCA Taxus LINDSEY 10/09 PCI RI, LAD HTN DM Dyslipidemia ischemic cardiomyopathy CHF social history: quit smoking 2012 FAMILY HX: mother DM Father pancreatic ca PSH PCI RCA 10/29 after inferior STEMI 04/28/13: [facility] mayur PCI LAD 3X12 promus, PCI RI 2.5X24 promus: LM: normal LAD 95% , RI 95%. LCX small RCA 40-50% [place] 50-60% EF < 30%. ROS as above Psychological: nl mood/affect, no complaints Social History Smoking Status: Former smoker Exam/Review of Systems Vital Signs Vitals Vital Signs Date Time Temp Pulse Resp B/P Pulse Ox O2 Delivery O2 Flow Rate FiO2 08/31/17 12:28 70 08/31/17 12:00 98.4 15 160/84 98 Room Air 08/30/17 00:46 2.0 Intake and Output 08/30/17 08/30/17 08/31/17 15:00 23:00 07:00 Intake Total 1000 ml 250 ml Balance 1000 ml 250 ml Exam General: no acute distress HEENT: NC/AT. pupils are equal. round. NECK: NO JVD. no stridor. CV: RRR. systolic murmur; no gallop or rubs. PULM: no wheezing or rhonchi. GI: SOFT, NT, ND, no rebound or guarding Extremity: trace B/L LE edema. no clubbing. neuro: awake and alert, OX3. 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 prior stent, left-right collaterals (new since 2012) Results Result Diagram: 08/30/1752008/30/17520 Results 24 hrs Laboratory Tests Test 08/30/17 17:02 08/30/17 20:51 08/31/17 02:14 08/31/17 07:47 Bedside Glucose 293 H 314 H 156 237 H Test 08/31/17 12:08 08/31/17 13:12 Bedside Glucose 143 182 Medications Medications Current Medications Lorazepam (Ativan) 0.5 mg Q8H PRN PO ANXIETY; Start 08/29/17 at 02:00 Ondansetron HCl (Zofran Inj) 4 mg Q6H PRN IV NAUSEA AND/OR VOMITING; Start at 02:00 Nitroglycerin (Nitroglycerin (Sl Tab) 0.4 Mg) 1 tab Q5M PRN SL CHEST PAIN Last administered on 08/29/17 18:49; Admin Dose 1 TAB; Start 08/29/17 at 02:00 Acetaminophen (Tylenol Tab) 650 mg Q6H PRN PO PAIN LEVEL 1-3 OR FEVER; Start 08/29/17 at 02:00 Enoxaparin Sodium (Lovenox) 40 mg DAILY SC Last administered on 08/30/17 08: 27; Admin Dose 40 MG; Start 08/29/17 at 09:00 Atorvastatin Calcium (Lipitor) 20 mg DAILY PO Last administered on 08/30/17 08:29; Admin Dose 20 MG; Start 08/29/17 at 09:00 Insulin Glargine (Lantus) 20 unit DAILY@08 SC Last administered on 08/31/17 08:04; Admin Dose 20 UNIT; Start 08/29/17 at 08:00 Pantoprazole (Protonix Tab) 40 mg DAILY@06 PO Last administered on 08/30/17 06:43; Admin Dose 40 MG; Start 08/29/17 at 06:00 Diagnostic Test (Pha) (Accu-Chek) 1 ea 02 XX ; Start 08/30/17 at 02:00 Diagnostic Test (Pha) (Accu-Chek) 1 ea 02 XX ; Start 08/30/17 at 02:00 Carvedilol (Coreg) 3.125 mg BID PO Last administered on 08/31/17 08:04; Admin Dose 3.125 MG; Start 08/29/17 at 21:00 Miscellaneous Information 1 ea NOTE XX ; Start 08/29/17 at 10:30 Glucose (Glutose) 15 gm Q15M PRN PO DECREASED GLUCOSE; Start 08/29/17 at 10:30 Glucose (Glutose) 22.5 gm Q15M PRN PO DECREASED GLUCOSE; Start 08/29/17 at 10: 30 Dextrose (D50w Syringe) 25 ml Q15M PRN IV DECREASED GLUCOSE; Start 08/29/17 at 10:30 Dextrose (D50w Syringe) 50 ml Q15M PRN IV DECREASED GLUCOSE; Start 08/29/17 at 10:30 Glucagon (Glucagen) 1 mg Q15M PRN IM DECREASED GLUCOSE; Start 08/29/17 at 10: 30 Glucose (Glutose) 15 gm Q15M PRN BUCCAL DECREASED GLUCOSE; Start 08/29/17 at 10:30 Aspirin (Aspirin) 325 mg DAILY PO Last administered on 08/31/17 08:04; Admin Dose 325 MG; Start 08/30/17 at 09:00 Valsartan (Diovan) 160 mg BID PO Last administered on 08/31/17 08:05; Admin Dose 160 MG; Start 08/30/17 at 21:00 Furosemide (Lasix) 40 mg DAILY PO ; Start 08/31/17 at 09:00 Hydralazine HCl (Apresoline) 10 mg Q4H PRN IV For SBP >160 Last administered on 08/31/17t 12:44; Admin Dose 10 MG; Start 08/31/17 at 07:00 Morphine Sulfate (morphine) 2 mg Q2H PRN IV FOR NON CARDIAC PAIN (4-10); Start 08/31/17 at 10:00 RACHEL CALLAHAN MD Aug 31, 2017 14:40
[2017-08-31] MEDS: ISOSORBIDE MONONITRATE(SR)30 MG TAB PO SCH (15:42)
--- NOTE | 2017-08-31 16:00 | RADRPT ---
PROCEDURE: US carotid arteries. CLINICAL INDICATION: Preoperative for CABG. TECHNIQUE: Multiple sonographic images of the carotid arteries and vertebral arteries were obtaine d utilizing rowe scale, duplex, and color-flow imaging. The images were reviewed on a PACS workstati on. COMPARISON: No prior studies are available for comparison. FINDINGS: Evaluation of the right carotid bifurcation region reveals mild atherosclerotic disease. Evaluation of the left carotid bifurcation region reveals mild atherosclerotic disease. There is antegrade flow within the vertebral arteries bilaterally. RIGHT CAROTID MEASUREMENTS: Common Carotid Offxji09 (cm/sec) Internal Carotid Artery 63 (cm/sec) External Carotid Artery 128 (cm/sec) Vertebral Artery 45 (cm/sec) Internal Carotid/Common Carotid1.1 LEFT CAROTID MEASUREMENTS: Common Carotid Ltoonm39 (cm/sec) Internal Carotid Artery 58 (cm/sec) External Carotid Artery 123 (cm/sec) Vertebral Artery 38 (cm/sec) Internal Carotid/Common Carotid0.9 Validated velocity measurements with angiographic measurements. Velocity criteria are extrapolated f rom diameter data as defined by the Society of Radiologists in Ultrasound Consensus Conference. Radi ology 2003; 229;340-346. This study does indirectly reference the measurement of the distal ICA jamie meter as the denominator for stenosis measurement. IMPRESSION: 1. Less than 50% stenosis bilaterally in the internal carotid arteries. 2. Normal antegrade flow in the vertebral arteries bilaterally. RPTAT: QQ SRU Consensus Conference Criteria for the Diagnosis of Carotid Artery Stenosis* Degree of Stenosis, % ICA PSV, cm/sec Plaque Estimate, % ICA/CCA PSV Ratio Normal <125 None <2.0 <50 <125 <50 <2.0 50 69 125-230 >50 2.0-4.0 >70 but less than near occlusion >230 >50 <4.0 Near occlusion High, low, or undetectable Visible Variable Total occlusion Undetectable Visible, no detectable lumen Not applicable *Cartoid artery stenosis: rowe-scale and Doppler US diagnosis. Society of Radiologists in Ultrasound Consensus Conference. Radiology 2003; 229: 340-346 .Billy Maciel MD, Date Time Electronically viewed and signed by .Billy Maciel MD, on 08/31/2017 16:00 .R/
--- NOTE | 2017-08-31 16:19 | PN ---
Date/Time of Note Date/Time of Note DATE: 08/31/17 TIME: 16:17 Assessment/Plan VTE Prophylaxis VTE Prophylaxis Intervention: SCD's Lines/Catheters IV Catheter Type (from Nrsg): Peripheral IV Assessment/Plan Assessment/Plan 62 yo M with known CAD, chronic systolic HF admitted for chest pain. Cardiac cath done today notable for multivessel CAD for which cardiology service is advising CABG PLAN CT surgery eval cont asa, BP control, DM control, lipid control. plavix as per cards Subjective 24 Hr Interval Summary Free Text/Dictation pt at cardiac cath at time of my attempted eval Exam/Review of Systems Vital Signs Vitals Vital Signs Date Time Temp Pulse Resp B/P Pulse Ox O2 Delivery O2 Flow Rate FiO2 08/31/17 15:28 97.3 84 18 131/74 98 08/31/17 12:00 Room Air 08/30/17 00:46 2.0 Intake and Output 08/30/17 08/30/17 08/31/17 15:00 23:00 07:00 Intake Total 1000 ml 250 ml Balance 1000 ml 250 ml Exam pt at cardiac cath at time of my attempted eval Results Result Diagram: 08/30/17 0521 08/30/17 0521 Results 24 hrs Laboratory Tests Test 08/30/17 17:02 08/30/17 20:51 08/31/17 02:14 08/31/17 07:47 Bedside Glucose 293 H 314 H 156 237 H Test 08/31/17 12:08 08/31/17 13:12 Bedside Glucose 143 182 Medications Medications Current Medications Lorazepam (Ativan) 0.5 mg Q8H PRN PO ANXIETY; Start 08/29/17 at 02:00 Ondansetron HCl (Zofran Inj) 4 mg Q6H PRN IV NAUSEA AND/OR VOMITING; Start at 02:00 Nitroglycerin (Nitroglycerin (Sl Tab) 0.4 Mg) 1 tab Q5M PRN SL CHEST PAIN Last administered on 08/29/17 18:49; Admin Dose 1 TAB; Start 08/29/17 at 02:00 Acetaminophen (Tylenol Tab) 650 mg Q6H PRN PO PAIN LEVEL 1-3 OR FEVER; Start 08/29/17 at 02:00 Enoxaparin Sodium (Lovenox) 40 mg DAILY SC Last administered on 08/30/17 08: 27; Admin Dose 40 MG; Start 08/29/17 at 09:00 Atorvastatin Calcium (Lipitor) 20 mg DAILY PO Last administered on 08/30/17 08:29; Admin Dose 20 MG; Start 08/29/17 at 09:00 Insulin Glargine (Lantus) 20 unit DAILY@08 SC Last administered on 08/31/17 08:04; Admin Dose 20 UNIT; Start 08/29/17 at 08:00 Pantoprazole (Protonix Tab) 40 mg DAILY@06 PO Last administered on 08/30/17 06:43; Admin Dose 40 MG; Start 08/29/17 at 06:00 Diagnostic Test (Pha) (Accu-Chek) 1 ea 02 XX ; Start 08/30/17 at 02:00 Diagnostic Test (Pha) (Accu-Chek) 1 ea 02 XX ; Start 08/30/17 at 02:00 Miscellaneous Information 1 ea NOTE XX ; Start 08/29/17 at 10:30 Glucose (Glutose) 15 gm Q15M PRN PO DECREASED GLUCOSE; Start 08/29/17 at 10:30 Glucose (Glutose) 22.5 gm Q15M PRN PO DECREASED GLUCOSE; Start 08/29/17 at 10: 30 Dextrose (D50w Syringe) 25 ml Q15M PRN IV DECREASED GLUCOSE; Start 08/29/17 at 10:30 Dextrose (D50w Syringe) 50 ml Q15M PRN IV DECREASED GLUCOSE; Start 08/29/17 at 10:30 Glucagon (Glucagen) 1 mg Q15M PRN IM DECREASED GLUCOSE; Start 08/29/17 at 10: 30 Glucose (Glutose) 15 gm Q15M PRN BUCCAL DECREASED GLUCOSE; Start 08/29/17 at 10:30 Aspirin (Aspirin) 325 mg DAILY PO Last administered on 08/31/17 08:04; Admin Dose 325 MG; Start 08/30/17 at 09:00 Valsartan (Diovan) 160 mg BID PO Last administered on 08/31/17 08:05; Admin Dose 160 MG; Start 08/30/17 at 21:00 Furosemide (Lasix) 40 mg DAILY PO ; Start 08/31/17 at 09:00 Hydralazine HCl (Apresoline) 10 mg Q4H PRN IV For SBP >160 Last administered on 08/31/17 12:44; Admin Dose 10 MG; Start 08/31/17 at 07:00 Morphine Sulfate (morphine) 2 mg Q2H PRN IV FOR NON CARDIAC PAIN (4-10); Start 08/31/17 at 10:00 Carvedilol (Coreg) 6.25 mg BID PO ; Start 08/31/17 at 21:00 Isosorbide Mononitrate (Imdur) 30 mg DAILY PO Last administered on 08/31/17 15:42; Admin Dose 30 MG; Start 08/31/17 at 15:30 KAYCEE SWARTZ MD Aug 31, 2017 16:19
[2017-09-01] VITALS (12 sets, daily range): BP systolic 111–163; BP diastolic 58–83; PULSE 70–78; RESP 17–18
[2017-09-01] MEDS: ACCU-CHEK XX SCH ×2 (02:00)
[2017-09-01 07:33] LABS: BASOPHILS % 0.3 % (0.0-2.0); EOSINOPHILS # 0.1 10^3/ul (0.0-0.5); EOSINOPHILS % 0.9 % (0.0-7.0); HEMATOCRIT 41.4 % (42.0-52.0); HEMOGLOBIN 13.6 g/dl (14.0-18.0); LYMPHOCYTES # 2.4 10^3/ul (0.8-2.9); LYMPHOCYTES % 25.3 % (15.0-51.0); MEAN CORPUSCULAR HEMOGLOBIN 29.9 pg (29.0-33.0); MEAN CORPUSCULAR HGB CONC 32.9 g/dl (32.0-37.0); MEAN PLATELET VOLUME 11.7 fl (7.4-10.4); MONOCYTE # 0.8 10^3/ul (0.3-0.9); MONOCYTES % 8.3 % (0.0-11.0); NEUTROPHIL # 6.2 10^3/ul (1.6-7.5); NEUTROPHILS % 64.9 % (39.0-77.0); PLATELET COUNT 197 10^3/UL (140-415); RED BLOOD COUNT 4.55 10^6/ul (4.70-6.10); WHITE BLOOD COUNT 9.5 10^3/ul (4.8-10.8)
[2017-09-01 07:49] LABS: INR 0.99; PROTIME 13.1 Sec (12.2-14.2)
[2017-09-01] MEDS: ASPIRIN 325 MG TAB PO SCH (07:59)
[2017-09-01] MEDS: ISOSORBIDE MONONITRATE(SR)30 MG TAB PO SCH (08:00)
[2017-09-01] MEDS: ATORVASTATIN 20 MG TAB PO SCH (08:00)
[2017-09-01] MEDS: FUROSEMIDE 40 MG TAB PO SCH (08:00)
[2017-09-01] MEDS: VALSARTAN 160 MG TAB PO SCH ×2 (08:00→22:37)
[2017-09-01 08:03] LABS: ALBUMIN 4.4 g/dl (3.3-4.9); ALBUMIN/GLOBULIN RATIO 1.62; BILIRUBIN,INDIRECT 0.8 mg/dl (0-1.1); BILIRUBIN,TOTAL 0.8 mg/dl (0.2-1.3); CALCIUM 9.1 mg/dl (8.4-10.2); CHOL/HDL RATIO 5.5 RATIO; CREATININE 0.85 mg/dl (0.61-1.24); MAGNESIUM 2.1 mg/dl (1.7-2.5); POTASSIUM 4.4 mmol/L (3.5-5.1); TOTAL PROTEIN 7.1 g/dl (6.1-8.1)
[2017-09-01] MEDS: INSULIN ASPART [NOVOLOG] 3 ML PEN SC SCH ×4 (08:09→21:00)
[2017-09-01] MEDS: ENOXAPARIN 40 MG/0.4 ML SYG SC SCH (08:09)
[2017-09-01] MEDS: INSULIN GLARGINE [LANtus] 3 ML PEN SC SCH (08:10)
[2017-09-01 08:15] LABS: TROPONIN-I 0.019 ng/ml (0.00-0.12)
[2017-09-01 08:16] LABS: CK-MB 3.32 ng/ml (0.0-2.4)
--- NOTE | 2017-09-01 15:19 | PN ---
Date/Time of Note Date/Time of Note DATE: 09/01/17 TIME: 15:18 Assessment/Plan VTE Prophylaxis VTE Prophylaxis Intervention: SCD's Lines/Catheters IV Catheter Type (from Nrsg): Peripheral IV Urinary Cath still in place: No Assessment/Plan Assessment/Plan 62 yo M with known CAD, chronic systolic HF admitted for chest pain. Cardiac cath . notable for multivessel CAD for which cardiology service is advising CABG PLAN CT surgery eval cont asa, BP control, DM control, lipid control. plavix as per cards Subjective 24 Hr Interval Summary Free Text/Dictation Pt denies chest pain Exam/Review of Systems Vital Signs Vitals Vital Signs Date Time Temp Pulse Resp B/P Pulse Ox O2 Delivery O2 Flow Rate FiO2 09/01/17 12:00 77 09/01/17 11:04 97.7 18 141/78 98 08/31/17 12:00 Room Air 08/30/17 00:46 2.0 Intake and Output 08/31/17 08/31/17 09/01/17 15:00 23:00 07:00 Intake Total 720 ml 500 ml Balance 720 ml 500 ml Exam nad no mrg lungs clear abd soft no rashes Results Result Diagram: 09/01/17 0652 09/01/17 0652 Results 24 hrs Laboratory Tests Test 08/31/17 17:10 08/31/17 20:46 09/01/17 01:51 09/01/17 06:52 Bedside Glucose 188 243 H 225 H White Blood Count 9.5 Red Blood Count 4.55 L Hemoglobin 13.6 L Hematocrit 41.4 L Mean Corpuscular Volume 91.0 Mean Corpuscular Hemoglobin 29.9 Mean Corpuscular Hemoglobin Concent 32.9 Red Cell Distribution Width 13.0 Platelet Count 197 Mean Platelet Volume 11.7 H Neutrophils % 64.9 Lymphocytes % 25.3 Monocytes % 8.3 Eosinophils % 0.9 Basophils % 0.3 Nucleated Red Blood Cells % 0.0 Neutrophils # 6.2 Lymphocytes # 2.4 Monocytes # 0.8 Eosinophils # 0.1 Basophils # 0.0 Nucleated Red Blood Cells # 0.0 Prothrombin Time 13.1 Prothrombin Time Ratio 1.0 INR International Normalized Ratio 0.99 Sodium Level 141 Potassium Level 4.4 Chloride Level 104 Carbon Dioxide Level 26 Anion Gap 15 Blood Urea Nitrogen 18 Creatinine 0.85 Glucose Level 196 Calcium Level 9.1 Magnesium Level 2.1 Total Bilirubin 0.8 Direct Bilirubin 0.00 Indirect Bilirubin 0.8 Aspartate Amino Transf (AST/SGOT) 20 Alanine Aminotransferase (ALT/SGPT) 32 Alkaline Phosphatase 61 Creatine Kinase 118 Creatine Kinase Index 2.8 Creatinine Kinase MB (Mass) 3.32 H Troponin I 0.019 B-Type Natriuretic Peptide 801 H Total Protein 7.1 Albumin 4.4 Globulin 2.70 Albumin/Globulin Ratio 1.62 Triglycerides Level 186 H Cholesterol Level 198 LDL Cholesterol, Calculated 125 HDL Cholesterol 36 Cholesterol/HDL Ratio 5.5 Thyroid Stimulating Hormone (TSH) 3.340 Free Thyroxine 1.11 Digoxin Level < 0.4 L Test 09/01/17 07:37 09/01/17 11:31 Bedside Glucose 198 237 H Medications Medications Current Medications Lorazepam (Ativan) 0.5 mg Q8H PRN PO ANXIETY; Start 08/29/17 at 02:00 Ondansetron HCl (Zofran Inj) 4 mg Q6H PRN IV NAUSEA AND/OR VOMITING; Start at 02:00 Nitroglycerin (Nitroglycerin (Sl Tab) 0.4 Mg) 1 tab Q5M PRN SL CHEST PAIN Last administered on 08/29/17 18:49; Admin Dose 1 TAB; Start 08/29/17 at 02:00 Acetaminophen (Tylenol Tab) 650 mg Q6H PRN PO PAIN LEVEL 1-3 OR FEVER; Start 08/29/17 at 02:00 Enoxaparin Sodium (Lovenox) 40 mg DAILY SC Last administered on 09/01/17 08: 09; Admin Dose 40 MG; Start 08/29/17 at 09:00 Atorvastatin Calcium (Lipitor) 20 mg DAILY PO Last administered on 09/01/17 08:00; Admin Dose 20 MG; Start 08/29/17 at 09:00 Insulin Glargine (Lantus) 20 unit DAILY@08 SC Last administered on 09/01/17 08:10; Admin Dose 20 UNIT; Start 08/29/17 at 08:00 Diagnostic Test (Pha) (Accu-Chek) 1 ea 02 XX ; Start 08/30/17 at 02:00 Diagnostic Test (Pha) (Accu-Chek) 1 ea 02 XX ; Start 08/30/17 at 02:00 Miscellaneous Information 1 ea NOTE XX ; Start 08/29/17 at 10:30 Glucose (Glutose) 15 gm Q15M PRN PO DECREASED GLUCOSE; Start 08/29/17 at 10:30 Glucose (Glutose) 22.5 gm Q15M PRN PO DECREASED GLUCOSE; Start 08/29/17 at 10: 30 Dextrose (D50w Syringe) 25 ml Q15M PRN IV DECREASED GLUCOSE; Start 08/29/17 at 10:30 Dextrose (D50w Syringe) 50 ml Q15M PRN IV DECREASED GLUCOSE; Start 08/29/17 at 10:30 Glucagon (Glucagen) 1 mg Q15M PRN IM DECREASED GLUCOSE; Start 08/29/17 at 10: 30 Glucose (Glutose) 15 gm Q15M PRN BUCCAL DECREASED GLUCOSE; Start 08/29/17 at 10:30 Aspirin (Aspirin) 325 mg DAILY PO Last administered on 09/01/17 07:59; Admin Dose 325 MG; Start 08/30/17 at 09:00 Valsartan (Diovan) 160 mg BID PO Last administered on 09/01/17 08:00; Admin Dose 160 MG; Start 08/30/17 at 21:00 Furosemide (Lasix) 40 mg DAILY PO Last administered on 09/01/17 08:00; Admin Dose 40 MG; Start 08/31/17 at 09:00 Morphine Sulfate (morphine) 2 mg Q2H PRN IV FOR NON CARDIAC PAIN (4-10); Start 08/31/17 at 10:00 Carvedilol (Coreg) 6.25 mg BID PO Last administered on 09/01/17 07:59; Admin Dose 6.25 MG; Start 08/31/17 at 21:00 Isosorbide Mononitrate (Imdur) 30 mg DAILY PO Last administered on 09/01/17 08:00; Admin Dose 30 MG; Start 08/31/17 at 15:30 KAYCEE SWARTZ MD Sep 01, 2017 15:19
--- NOTE | 2017-09-01 17:50 | CONS ---
Date/Time of Note Date/Time of Note DATE: 09/01/17 TIME: 17:47 Consult Date/Type/Reason Admit Date/Time Aug 28, 2017 at 23:44 Initial Consult Date 08/31/17 Type of Consultation: Card consult Subjective cardiology follow up note: S: no chest pain or pressure or palpitations. he is awaiting surgery no bleeding O: General: no acute distress HEENT: NC/AT. pupils are equal. round. NECK: NO JVD. no stridor. CV: RRR. systolic murmur; no gallop or rubs. PULM: no wheezing or rhonchi. GI: SOFT, NT, ND, no rebound or guarding Extremity: trace B/L LE edema. no clubbing. neuro: awake and alert, OX3. Psych: calm and pleasant rectal: deferred ECHO EF 40% MARCOS ANGIO 08/31/17: Left main:normal LAD: long stent with prox 80% ISR Diagonal:luminal irregularities Circumflex: small vessel with 100% mid ASSEMBLER SEAT and left-left collaterals (new since 2012) Ramus: Large vessel with patent prox-mid stent RCA:mid 100% ASSEMBLER SEAT at prior stent, left-right collaterals (new since 2012) Objective Vital Signs Date Time Temp Pulse Resp B/P Pulse Ox O2 Delivery O2 Flow Rate FiO2 09/01/17 16:00 70 09/01/17 15:20 98.8 18 130/66 94 08/31/17 12:00 Room Air 08/30/17 00:46 2.0 Intake and Output 08/31/17 08/31/17 09/01/17 15:00 23:00 07:00 Intake Total 720 ml 500 ml Balance 720 ml 500 ml Results/Medications Result Diagram: 09/01/17 0652 09/01/17 0652 Results 24 hrs Laboratory Tests Test 08/31/17 20:46 09/01/17 01:51 09/01/17 06:52 09/01/17 07:37 Bedside Glucose 243 H 225 H 198 White Blood Count 9.5 Red Blood Count 4.55 L Hemoglobin 13.6 L Hematocrit 41.4 L Mean Corpuscular Volume 91.0 Mean Corpuscular Hemoglobin 29.9 Mean Corpuscular Hemoglobin Concent 32.9 Red Cell Distribution Width 13.0 Platelet Count 197 Mean Platelet Volume 11.7 H Neutrophils % 64.9 Lymphocytes % 25.3 Monocytes % 8.3 Eosinophils % 0.9 Basophils % 0.3 Nucleated Red Blood Cells % 0.0 Neutrophils # 6.2 Lymphocytes # 2.4 Monocytes # 0.8 Eosinophils # 0.1 Basophils # 0.0 Nucleated Red Blood Cells # 0.0 Prothrombin Time 13.1 Prothrombin Time Ratio 1.0 INR International Normalized Ratio 0.99 Sodium Level 141 Potassium Level 4.4 Chloride Level 104 Carbon Dioxide Level 26 Anion Gap 15 Blood Urea Nitrogen 18 Creatinine 0.85 Glucose Level 196 Calcium Level 9.1 Magnesium Level 2.1 Total Bilirubin 0.8 Direct Bilirubin 0.00 Indirect Bilirubin 0.8 Aspartate Amino Transf (AST/SGOT) 20 Alanine Aminotransferase (ALT/SGPT) 32 Alkaline Phosphatase 61 Creatine Kinase 118 Creatine Kinase Index 2.8 Creatinine Kinase MB (Mass) 3.32 H Troponin I 0.019 B-Type Natriuretic Peptide 801 H Total Protein 7.1 Albumin 4.4 Globulin 2.70 Albumin/Globulin Ratio 1.62 Triglycerides Level 186 H Cholesterol Level 198 LDL Cholesterol, Calculated 125 HDL Cholesterol 36 Cholesterol/HDL Ratio 5.5 Thyroid Stimulating Hormone (TSH) 3.340 Free Thyroxine 1.11 Digoxin Level < 0.4 L Test 09/01/17 11:31 09/01/17 17:19 Bedside Glucose 237 H 211 Medications Current Medications Lorazepam (Ativan) 0.5 mg Q8H PRN PO ANXIETY; Start 08/29/17 at 02:00 Ondansetron HCl (Zofran Inj) 4 mg Q6H PRN IV NAUSEA AND/OR VOMITING; Start at 02:00 Nitroglycerin (Nitroglycerin (Sl Tab) 0.4 Mg) 1 tab Q5M PRN SL CHEST PAIN Last administered on 08/29/17 18:49; Admin Dose 1 TAB; Start 08/29/17 at 02:00 Acetaminophen (Tylenol Tab) 650 mg Q6H PRN PO PAIN LEVEL 1-3 OR FEVER; Start 08/29/17 at 02:00 Insulin Glargine (Lantus) 20 unit DAILY@08 SC Last administered on 09/01/17 08:10; Admin Dose 20 UNIT; Start 08/29/17 at 08:00 Diagnostic Test (Pha) (Accu-Chek) 1 ea 02 XX ; Start 08/30/17 at 02:00 Diagnostic Test (Pha) (Accu-Chek) 1 ea 02 XX ; Start 08/30/17 at 02:00 Miscellaneous Information 1 ea NOTE XX ; Start 08/29/17 at 10:30 Glucose (Glutose) 15 gm Q15M PRN PO DECREASED GLUCOSE; Start 08/29/17 at 10:30 Glucose (Glutose) 22.5 gm Q15M PRN PO DECREASED GLUCOSE; Start 08/29/17 at 10: 30 Dextrose (D50w Syringe) 25 ml Q15M PRN IV DECREASED GLUCOSE; Start 08/29/17 at 10:30 Dextrose (D50w Syringe) 50 ml Q15M PRN IV DECREASED GLUCOSE; Start 08/29/17 at 10:30 Glucagon (Glucagen) 1 mg Q15M PRN IM DECREASED GLUCOSE; Start 08/29/17 at 10: 30 Glucose (Glutose) 15 gm Q15M PRN BUCCAL DECREASED GLUCOSE; Start 08/29/17 at 10:30 Valsartan (Diovan) 160 mg BID PO Last administered on 09/01/17 08:00; Admin Dose 160 MG; Start 08/30/17 at 21:00 Furosemide (Lasix) 40 mg DAILY PO Last administered on 09/01/17 08:00; Admin Dose 40 MG; Start 08/31/17 at 09:00 Morphine Sulfate (morphine) 2 mg Q2H PRN IV FOR NON CARDIAC PAIN (4-10); Start 08/31/17 at 10:00 Carvedilol (Coreg) 6.25 mg BID PO Last administered on 09/01/17 07:59; Admin Dose 6.25 MG; Start 08/31/17 at 21:00 Isosorbide Mononitrate (Imdur) 30 mg DAILY PO Last administered on 09/01/17 08:00; Admin Dose 30 MG; Start 08/31/17 at 15:30 Aspirin (Aspirin) 81 mg DAILY PO ; Start 09/02/17 at 09:00 Atorvastatin Calcium (Lipitor) 80 mg DAILY@21 PO ; Start 09/01/17 at 21:00 Enoxaparin Sodium (Lovenox) 60 mg BID SC ; Start 09/01/17 at 21:00 Assessment/Plan Chief Complaint/Hosp Course 1. ACS 2. Multivessel CAD 3. ISCHEMIC CARDIOMYOPATHY 4. DM 5. HTN 6. CHF Rec cont ASA ntg inc coreg as tolerated. statin DM CONTROL ARB/ MARTY given his multivessel disease and DM, and stent resternosis and cardiomyopathy, (although multivessel PCI can be done) , CABG is the treatment of choice. will contact CT surgery for evaluation. pt needs to be off of plavix for 5-7 days as long as remains stable WILL INC LOVENOX AND DEC ASA THANK YOU. RACHEL CALLAHAN MD [facility] Problems: RACHEL CALLAHAN MD Sep 01, 2017 17:50
[2017-09-01] MEDS: ENOXAPARIN 60 MG/0.6 ML SYG SC SCH (21:00)
[2017-09-01] MEDS: ATORVASTATIN 80 MG TAB PO SCH (22:37)
[2017-09-02] VITALS (12 sets, daily range): BP systolic 130–165; BP diastolic 62–86; PULSE 65–82; RESP 17–18
[2017-09-02] MEDS: ACCU-CHEK XX SCH ×2 (02:00)
--- NOTE | 2017-09-02 02:53 | CONS ---
DATE OF ADMISSION: 08/28/2017 DATE OF CONSULTATION: REASON FOR CONSULTATION: Evaluation for coronary artery bypass grafting. HISTORY OF PRESENT ILLNESS: A 62-year-old male with history of coronary artery disease, PCI in 2012 admitted because of CHF, systolic dysfunction, ejection fraction 40%, complaining of chest pa in, underwent a coronary angiogram which was positive for 3-vessel coronary artery disease involving LAD 80%, circumflex 100% and RCA 100%. The patient was on Plavix. Last dose of Plavix was 3 days ago. PAST MEDICAL HISTORY: Hypertension, hyperlipidemia, coronary artery disease. PAST SURGICAL HISTORY: As above. ALLERGIES: NONE. SOCIAL HISTORY: No smoking, drinking or drug use. MEDICATIONS: List reviewed. PHYSICAL EXAMINATION: VITAL SIGNS: Blood pressure is 110/60, pulse is 80, respirations 18. CARDIOVASCULAR: Normal S1, S2. No murmurs, gallops or rubs. LUNGS: Clear. ABDOMEN: Soft. EXTREMITIES: Warm. LABORATORY VALUES: White count 9.5, hemoglobin 11.6, platelet count 197. Normal coagulation factor s and a creatinine level of 0.85. IMPRESSION: 1. Three-vessel coronary artery disease. 2. Cardiomyopathy with ejection fraction of 40%. RECOMMENDATIONS: The patient is a candidate to undergo coronary artery bypass grafting. Last dose of Plavix was 3 days ago. We will proceed with coronary artery bypass grafting after the Plavix has been washed off and CHF has improved. We will discuss with Dr. Borges and . Dictated By: MARIE OQUENDO MD [facility] Conf#: [id number] DID#: [id number] CC: SHIRLEY JEAN MD;*End*
[2017-09-02] MEDS: INSULIN ASPART [NOVOLOG] 3 ML PEN SC SCH ×4 (08:31→21:32)
[2017-09-02] MEDS: INSULIN GLARGINE [LANtus] 3 ML PEN SC SCH (08:32)
[2017-09-02] MEDS: ENOXAPARIN 60 MG/0.6 ML SYG SC SCH ×2 (08:33→21:24)
[2017-09-02] MEDS: VALSARTAN 160 MG TAB PO SCH ×2 (08:39→21:19)
[2017-09-02] MEDS: FUROSEMIDE 40 MG TAB PO SCH (08:39)
[2017-09-02] MEDS: ASPIRIN 81 MG TAB PO SCH (08:39)
[2017-09-02] MEDS: ISOSORBIDE MONONITRATE(SR)30 MG TAB PO SCH (08:40)
[2017-09-02] MEDS ORDERED: ASPIRIN 325 MG TAB PO SCH (09:00)
--- NOTE | 2017-09-02 09:33 | CONS ---
Date/Time of Note Date/Time of Note DATE: 09/02/17 TIME: 09:32 Consult Date/Type/Reason Admit Date/Time Aug 28, 2017 at 23:44 Initial Consult Date 08/31/17 Type of Consultation: Card consult Subjective cardiology follow up note: S: no chest pain or pressure or palpitations. he is awaiting surgery no bleeding no PND orthopna. O: General: no acute distress HEENT: NC/AT. pupils are equal. round. NECK: NO JVD. no stridor. CV: RRR. systolic murmur; no gallop or rubs. PULM: no wheezing or rhonchi. GI: SOFT, NT, ND, no rebound or guarding Extremity: trace B/L LE edema. no clubbing. neuro: awake and alert, OX3. Psych: calm and pleasant rectal: deferred ECHO EF 40% MARCOS ANGIO 08/31/17: Left main:normal LAD: long stent with prox 80% ISR Diagonal:luminal irregularities Circumflex: small vessel with 100% mid ADMINISTRATIVE REPRESENTATIVE and left-left collaterals (new since 2012) Ramus: Large vessel with patent prox-mid stent RCA:mid 100% ADMINISTRATIVE REPRESENTATIVE at prior stent, left-right collaterals (new since 2012) Objective Vital Signs Date Time Temp Pulse Resp B/P Pulse Ox O2 Delivery O2 Flow Rate FiO2 09/02/17 08:00 65 09/02/17 07:51 98.6 18 165/79 97 08/31/17 12:00 Room Air 08/30/17 00:46 2.0 Intake and Output 09/01/17 09/01/17 09/02/17 15:00 23:00 07:00 Intake Total 800 ml 400 ml Balance 800 ml 400 ml Results/Medications Result Diagram: 09/01/17 0652 09/01/17 0652 Results 24 hrs Laboratory Tests Test 09/01/17 11:31 09/01/17 17:19 09/01/17 20:55 09/02/17 01:53 Bedside Glucose 237 H 211 285 H 199 Test 09/02/17 08:27 Bedside Glucose 260 H Medications Current Medications Lorazepam (Ativan) 0.5 mg Q8H PRN PO ANXIETY; Start 08/29/17 at 02:00 Ondansetron HCl (Zofran Inj) 4 mg Q6H PRN IV NAUSEA AND/OR VOMITING; Start at 02:00 Nitroglycerin (Nitroglycerin (Sl Tab) 0.4 Mg) 1 tab Q5M PRN SL CHEST PAIN Last administered on 08/29/17 18:49; Admin Dose 1 TAB; Start 08/29/17 at 02:00 Acetaminophen (Tylenol Tab) 650 mg Q6H PRN PO PAIN LEVEL 1-3 OR FEVER; Start 08/29/17 at 02:00 Insulin Glargine (Lantus) 20 unit DAILY@08 SC Last administered on 09/02/17 08 :32; Admin Dose 20 UNIT; Start 08/29/17 at 08:00 Diagnostic Test (Pha) (Accu-Chek) 1 ea 02 XX Last administered on 09/02/17 02: 00; Admin Dose 1 EA; Start 08/30/17 at 02:00 Diagnostic Test (Pha) (Accu-Chek) 1 ea 02 XX ; Start 08/30/17 at 02:00 Miscellaneous Information 1 ea NOTE XX ; Start 08/29/17 at 10:30 Glucose (Glutose) 15 gm Q15M PRN PO DECREASED GLUCOSE; Start 08/29/17 at 10:30 Glucose (Glutose) 22.5 gm Q15M PRN PO DECREASED GLUCOSE; Start 08/29/17 at 10: 30 Dextrose (D50w Syringe) 25 ml Q15M PRN IV DECREASED GLUCOSE; Start 08/29/17 at 10:30 Dextrose (D50w Syringe) 50 ml Q15M PRN IV DECREASED GLUCOSE; Start 08/29/17 at 10:30 Glucagon (Glucagen) 1 mg Q15M PRN IM DECREASED GLUCOSE; Start 08/29/17 at 10: 30 Glucose (Glutose) 15 gm Q15M PRN BUCCAL DECREASED GLUCOSE; Start 08/29/17 at 10:30 Valsartan (Diovan) 160 mg BID PO Last administered on 09/02/17 08:39; Admin Dose 160 MG; Start 08/30/17 at 21:00 Furosemide (Lasix) 40 mg DAILY PO Last administered on 09/02/17 08:39; Admin Dose 40 MG; Start 08/31/17 at 09:00 Morphine Sulfate (morphine) 2 mg Q2H PRN IV FOR NON CARDIAC PAIN (4-10); Start 08/31/17 at 10:00 Carvedilol (Coreg) 6.25 mg BID PO Last administered on 09/02/17 08:40; Admin Dose 6.25 MG; Start 08/31/17 at 21:00 Isosorbide Mononitrate (Imdur) 30 mg DAILY PO Last administered on 09/02/17 08 :40; Admin Dose 30 MG; Start 08/31/17 at 15:30 Atorvastatin Calcium (Lipitor) 80 mg DAILY@21 PO Last administered on 22:37; Admin Dose 80 MG; Start 09/01/17 at 21:00 Enoxaparin Sodium (Lovenox) 60 mg BID SC Last administered on 09/02/17 08:33; Admin Dose 60 MG; Start 09/01/17 at 21:00 Aspirin (Aspirin) 81 mg DAILY PO Last administered on 09/02/17 08:39; Admin Dose 81 MG; Start 09/02/17 at 09:00 Assessment/Plan Chief Complaint/Hosp Course 1. ACS 2. Multivessel CAD 3. ISCHEMIC CARDIOMYOPATHY 4. DM 5. HTN 6. CHF: due to systolic heart failure and chronic and stable now Rec cont ASA ntg inc coreg as tolerated. statin DM CONTROL ARB/ MARTY given his multivessel disease and DM, and stent resternosis and cardiomyopathy, (although multivessel PCI can be done) , CABG is the treatment of choice. awaiting CABG pt needs to be off of plavix for 5-7 days as long as remains stable WILL cont lovenox until CABG THANK YOU. RACHEL CALLAHAN MD [facility] Problems: RACHEL CALLAHAN MD Sep 02, 2017 09:33
--- NOTE | 2017-09-02 13:17 | PN ---
Date/Time of Note Date/Time of Note DATE: 09/02/17 TIME: 13:16 Assessment/Plan VTE Prophylaxis VTE Prophylaxis Intervention: SCD's Lines/Catheters IV Catheter Type (from Nrsg): Peripheral IV Urinary Cath still in place: No Assessment/Plan Assessment/Plan 62 yo M with known CAD, chronic systolic HF admitted for chest pain. Cardiac cath 10. notable for multivessel CAD for which cardiology service is advising CABG PLAN CT surgery eval-->CABG pending cont asa, BP control, DM control, lipid control. plavix as per cards Subjective 24 Hr Interval Summary Free Text/Dictation no complaints Exam/Review of Systems Vital Signs Vitals Vital Signs Date Time Temp Pulse Resp B/P Pulse Ox O2 Delivery O2 Flow Rate FiO2 09/02/17 12:00 77 09/02/17 11:43 98.2 18 165/80 95 08/31/17 12:00 Room Air 08/30/17 00:46 2.0 Intake and Output 09/01/17 09/01/17 09/02/17 15:00 23:00 07:00 Intake Total 800 ml 400 ml Balance 800 ml 400 ml Exam nad no mrg lungs clear abd soft no rashes Results Result Diagram: 09/01/17 0652 09/01/17 0652 Results 24 hrs Laboratory Tests Test 09/01/17 17:19 09/01/17 20:55 09/02/17 01:53 09/02/17 08:27 Bedside Glucose 211 285 H 199 260 H Test 09/02/17 12:40 Bedside Glucose 360 H Medications Medications Current Medications Lorazepam (Ativan) 0.5 mg Q8H PRN PO ANXIETY; Start 08/29/17 at 02:00 Ondansetron HCl (Zofran Inj) 4 mg Q6H PRN IV NAUSEA AND/OR VOMITING; Start at 02:00 Nitroglycerin (Nitroglycerin (Sl Tab) 0.4 Mg) 1 tab Q5M PRN SL CHEST PAIN Last administered on 08/29/17t 18:49; Admin Dose 1 TAB; Start 08/29/17 at 02:00 Acetaminophen (Tylenol Tab) 650 mg Q6H PRN PO PAIN LEVEL 1-3 OR FEVER; Start 08/29/17 at 02:00 Insulin Glargine (Lantus) 20 unit DAILY@08 SC Last administered on 09/02/17 08 :32; Admin Dose 20 UNIT; Start 08/29/17 at 08:00 Diagnostic Test (Pha) (Accu-Chek) 1 ea 02 XX Last administered on 09/02/17 02: 00; Admin Dose 1 EA; Start 08/30/17 at 02:00 Diagnostic Test (Pha) (Accu-Chek) 1 ea 02 XX ; Start 08/30/17 at 02:00 Miscellaneous Information 1 ea NOTE XX ; Start 08/29/17 at 10:30 Glucose (Glutose) 15 gm Q15M PRN PO DECREASED GLUCOSE; Start 08/29/17 at 10:30 Glucose (Glutose) 22.5 gm Q15M PRN PO DECREASED GLUCOSE; Start 08/29/17 at 10: 30 Dextrose (D50w Syringe) 25 ml Q15M PRN IV DECREASED GLUCOSE; Start 08/29/17 at 10:30 Dextrose (D50w Syringe) 50 ml Q15M PRN IV DECREASED GLUCOSE; Start 08/29/17 at 10:30 Glucagon (Glucagen) 1 mg Q15M PRN IM DECREASED GLUCOSE; Start 08/29/17 at 10: 30 Glucose (Glutose) 15 gm Q15M PRN BUCCAL DECREASED GLUCOSE; Start 08/29/17 at 10:30 Valsartan (Diovan) 160 mg BID PO Last administered on 09/02/17 08:39; Admin Dose 160 MG; Start 08/30/17 at 21:00 Furosemide (Lasix) 40 mg DAILY PO Last administered on 09/02/17 08:39; Admin Dose 40 MG; Start 08/31/17 at 09:00 Morphine Sulfate (morphine) 2 mg Q2H PRN IV FOR NON CARDIAC PAIN (4-10); Start 08/31/17 at 10:00 Isosorbide Mononitrate (Imdur) 30 mg DAILY PO Last administered on 09/02/17 08 :40; Admin Dose 30 MG; Start 08/31/17 at 15:30 Atorvastatin Calcium (Lipitor) 80 mg DAILY@21 PO Last administered on 22:37; Admin Dose 80 MG; Start 09/01/17 at 21:00 Enoxaparin Sodium (Lovenox) 60 mg BID SC Last administered on 09/02/17 08:33; Admin Dose 60 MG; Start 09/01/17 at 21:00 Aspirin (Aspirin) 81 mg DAILY PO Last administered on 09/02/17t 08:39; Admin Dose 81 MG; Start 09/02/17 at 09:00 Carvedilol (Coreg) 12.5 mg BID PO ; Start 09/02/17 at 21:00 KAYCEE SWARTZ MD Sep 02, 2017 13:17
--- NOTE | 2017-09-02 14:02 | RADRPT ---
PROCEDURE: XR Chest. CLINICAL INDICATION: CHF TECHNIQUE: PA and Lateral views of the chest were obtained. COMPARISON: Chest radiograph dated April 27, 2013. FINDINGS: The cardiomediastinal silhouette is within normal limits. The lungs are clear. No signs of pleural f luid or pneumothorax are seen. The osseous structures and soft tissues are unremarkable. IMPRESSION: No evidence for active cardiopulmonary disease. RPTAT:AAJJ Robert Burt Physician Date Time Electronically viewed and signed by Robert Burt Physician on 09/02/2017 14:01 QL/
--- NOTE | 2017-09-02 18:43 | PN ---
Date/Time of Note Date/Time of Note DATE: 09/02/17 TIME: 18:42 Assessment/Plan Lines/Catheters IV Catheter Type (from Nrsg): Peripheral IV Carbajal in Place (from Nrsg): No Assessment/Plan Chief Complaint/Hosp Course Coronary artery disease Cardiomyopathy with ejection fraction 40% Status post Plavix Cuspid the family Plan for coronary artery bypass grafting on Thursday Problems: Subjective 24 Hr Interval Summary Coronary artery disease Constitutional: improved Pain Control: mild Exam/Review of Systems Vital Signs Vitals Vital Signs Date Time Temp Pulse Resp B/P Pulse Ox O2 Delivery O2 Flow Rate FiO2 09/02/17 16:00 71 09/02/17 15:13 97.7 17 130/62 95 08/31/17 12:00 Room Air 08/30/17 00:46 2.0 Intake and Output 09/01/17 09/01/17 09/02/17 15:00 23:00 07:00 Intake Total 800 ml 400 ml Balance 800 ml 400 ml Exam ENMT: mucosa pink and moist, nl external ears & nose, nl lips & teeth, nl nasal mucosa & septum Neck: non-tender, supple Respiratory: clear to auscultation, normal air movement Cardiovascular: nl pulses, regular rate and rhythm Gastrointestinal: nl liver, spleen, non-tender, soft Results Result Diagram: 09/01/17 0652 09/01/17 0652 MARIE OQUENDO MD Sep 02, 2017 18:43
[2017-09-02] MEDS: ATORVASTATIN 80 MG TAB PO SCH (21:19)
[2017-09-03] VITALS (13 sets, daily range): BP systolic 108–175; BP diastolic 55–86; PULSE 61–136; RESP 18–20
[2017-09-03] MEDS: ACCU-CHEK XX SCH ×2 (02:44)
[2017-09-03 06:26] LABS: BASOPHILS % 0.5 % (0.0-2.0); EOSINOPHILS # 0.1 10^3/ul (0.0-0.5); EOSINOPHILS % 1.6 % (0.0-7.0); HEMOGLOBIN 14.2 g/dl (14.0-18.0); LYMPHOCYTES # 3.4 10^3/ul (0.8-2.9); LYMPHOCYTES % 39.2 % (15.0-51.0); MEAN CORPUSCULAR HEMOGLOBIN 30.5 pg (29.0-33.0); MEAN CORPUSCULAR HGB CONC 33.8 g/dl (32.0-37.0); MEAN CORPUSCULAR VOLUME 90.1 fl (82.0-101.0); MEAN PLATELET VOLUME 11.9 fl (7.4-10.4); MONOCYTE # 0.7 10^3/ul (0.3-0.9); MONOCYTES % 7.7 % (0.0-11.0); NEUTROPHIL # 4.4 10^3/ul (1.6-7.5); NEUTROPHILS % 50.8 % (39.0-77.0); PLATELET COUNT 202 10^3/UL (140-415); RED BLOOD COUNT 4.66 10^6/ul (4.70-6.10); RED CELL DISTRIBUTION WIDTH 12.8 % (11.5-14.5); WHITE BLOOD COUNT 8.7 10^3/ul (4.8-10.8)
[2017-09-03 07:09] LABS: ALBUMIN 4.3 g/dl (3.3-4.9); ALBUMIN/GLOBULIN RATIO 1.34; BILIRUBIN,INDIRECT 0.8 mg/dl (0-1.1); BILIRUBIN,TOTAL 0.8 mg/dl (0.2-1.3); CALCIUM 9.4 mg/dl (8.4-10.2); CREATININE 0.79 mg/dl (0.61-1.24); POTASSIUM 4.3 mmol/L (3.5-5.1); TOTAL PROTEIN 7.5 g/dl (6.1-8.1)
[2017-09-03] MEDS: INSULIN GLARGINE [LANtus] 3 ML PEN SC SCH (08:02)
[2017-09-03] MEDS: INSULIN ASPART [NOVOLOG] 3 ML PEN SC SCH ×5 (08:02→21:55)
--- NOTE | 2017-09-03 08:09 | CONS ---
Date/Time of Note Date/Time of Note DATE: 09/03/17 TIME: 08:08 Consult Date/Type/Reason Admit Date/Time Aug 28, 2017 at 23:44 Initial Consult Date 08/31/17 Type of Consultation: Card consult Subjective cardiology follow up note: S: d/w staff and Dr Fernandez no chest pain or pressure or palpitations. he is awaiting surgery no bleeding O: General: no acute distress HEENT: NC/AT. pupils are equal. round. NECK: NO JVD. no stridor. CV: RRR. systolic murmur; no gallop or rubs. PULM: no wheezing or rhonchi. GI: SOFT, NT, ND, no rebound or guarding Extremity: trace B/L LE edema. no clubbing. neuro: awake and alert, OX3. Psych: calm and pleasant rectal: deferred ECHO EF 40% MARCOS ANGIO 08/31/17: Left main:normal LAD: long stent with prox 80% ISR Diagonal:luminal irregularities Circumflex: small vessel with 100% mid PROSPECTING DRILLER and left-left collaterals (new since 2012) Ramus: Large vessel with patent prox-mid stent RCA:mid 100% PROSPECTING DRILLER at prior stent, left-right collaterals (new since 2012) Objective Vital Signs Date Time Temp Pulse Resp B/P Pulse Ox O2 Delivery O2 Flow Rate FiO2 09/03/17 07:14 98.3 75 18 168/79 98 08/31/17 12:00 Room Air Intake and Output 09/02/17 09/02/17 09/03/17 15:00 23:00 07:00 Intake Total 900 ml 360 ml Balance 900 ml 360 ml Results/Medications Result Diagram: 09/03/17 0547 09/03/17 0547 Results 24 hrs Laboratory Tests Test 09/02/17 08:27 09/02/17 12:40 09/02/17 17:26 09/02/17 21:26 Bedside Glucose 260 H 360 H 253 H 247 H Test 09/03/17 02:43 09/03/17 05:47 09/03/17 07:51 Bedside Glucose 169 224 H White Blood Count 8.7 Red Blood Count 4.66 L Hemoglobin 14.2 Hematocrit 42.0 Mean Corpuscular Volume 90.1 Mean Corpuscular Hemoglobin 30.5 Mean Corpuscular Hemoglobin Concent 33.8 Red Cell Distribution Width 12.8 Platelet Count 202 Mean Platelet Volume 11.9 H Neutrophils % 50.8 Lymphocytes % 39.2 Monocytes % 7.7 Eosinophils % 1.6 Basophils % 0.5 Nucleated Red Blood Cells % 0.0 Neutrophils # 4.4 Lymphocytes # 3.4 H Monocytes # 0.7 Eosinophils # 0.1 Basophils # 0.0 Nucleated Red Blood Cells # 0.0 Sodium Level 143 Potassium Level 4.3 Chloride Level 105 Carbon Dioxide Level 26 Anion Gap 16 Blood Urea Nitrogen 13 Creatinine 0.79 Glucose Level 193 Calcium Level 9.4 Total Bilirubin 0.8 Direct Bilirubin 0.00 Indirect Bilirubin 0.8 Aspartate Amino Transf (AST/SGOT) 24 Alanine Aminotransferase (ALT/SGPT) 32 Alkaline Phosphatase 73 B-Type Natriuretic Peptide 625 H Total Protein 7.5 Albumin 4.3 Globulin 3.20 Albumin/Globulin Ratio 1.34 Medications Current Medications Lorazepam (Ativan) 0.5 mg Q8H PRN PO ANXIETY; Start 08/29/17 at 02:00 Ondansetron HCl (Zofran Inj) 4 mg Q6H PRN IV NAUSEA AND/OR VOMITING; Start at 02:00 Nitroglycerin (Nitroglycerin (Sl Tab) 0.4 Mg) 1 tab Q5M PRN SL CHEST PAIN Last administered on 08/29/17 18:49; Admin Dose 1 TAB; Start 08/29/17 at 02:00 Acetaminophen (Tylenol Tab) 650 mg Q6H PRN PO PAIN LEVEL 1-3 OR FEVER; Start 08/29/17 at 02:00 Insulin Glargine (Lantus) 20 unit DAILY@08 SC Last administered on 09/03/17 08 :02; Admin Dose 20 UNIT; Start 08/29/17 at 08:00 Diagnostic Test (Pha) (Accu-Chek) 1 ea 02 XX Last administered on 09/03/17 02: 44; Admin Dose 1 EA; Start 08/30/17 at 02:00 Diagnostic Test (Pha) (Accu-Chek) 1 ea 02 XX Last administered on 09/03/17 02: 44; Admin Dose 1 EA; Start 08/30/17 at 02:00 Miscellaneous Information 1 ea NOTE XX ; Start 08/29/17 at 10:30 Glucose (Glutose) 15 gm Q15M PRN PO DECREASED GLUCOSE; Start 08/29/17 at 10:30 Glucose (Glutose) 22.5 gm Q15M PRN PO DECREASED GLUCOSE; Start 08/29/17 at 10: 30 Dextrose (D50w Syringe) 25 ml Q15M PRN IV DECREASED GLUCOSE; Start 08/29/17 at 10:30 Dextrose (D50w Syringe) 50 ml Q15M PRN IV DECREASED GLUCOSE; Start 08/29/17 at 10:30 Glucagon (Glucagen) 1 mg Q15M PRN IM DECREASED GLUCOSE; Start 08/29/17 at 10: 30 Glucose (Glutose) 15 gm Q15M PRN BUCCAL DECREASED GLUCOSE; Start 08/29/17 at 10:30 Valsartan (Diovan) 160 mg BID PO Last administered on 09/02/17 21:19; Admin Dose 160 MG; Start 08/30/17 at 21:00 Furosemide (Lasix) 40 mg DAILY PO Last administered on 09/02/17 08:39; Admin Dose 40 MG; Start 08/31/17 at 09:00 Morphine Sulfate (morphine) 2 mg Q2H PRN IV FOR NON CARDIAC PAIN (4-10); Start 08/31/17 at 10:00 Isosorbide Mononitrate (Imdur) 30 mg DAILY PO Last administered on 09/02/17 08 :40; Admin Dose 30 MG; Start 08/31/17 at 15:30 Atorvastatin Calcium (Lipitor) 80 mg DAILY@21 PO Last administered on 21:19; Admin Dose 80 MG; Start 09/01/17 at 21:00 Enoxaparin Sodium (Lovenox) 60 mg BID SC Last administered on 09/02/17 21:24; Admin Dose 60 MG; Start 09/01/17 at 21:00 Aspirin (Aspirin) 81 mg DAILY PO Last administered on 09/02/17 08:39; Admin Dose 81 MG; Start 09/02/17 at 09:00 Carvedilol (Coreg) 12.5 mg BID PO Last administered on 09/02/17 21:19; Admin Dose 12.5 MG; Start 09/02/17 at 21:00 Assessment/Plan Chief Complaint/Hosp Course 1. ACS 2. Multivessel CAD 3. ISCHEMIC CARDIOMYOPATHY 4. DM 5. HTN 6. CHF: due to systolic heart failure and chronic and stable now Rec cont ASA ntg inc coreg as tolerated. statin DM CONTROL cont ARB/ MARTY given his multivessel disease and DM, and stent resternosis and cardiomyopathy, (although multivessel PCI can be done) , CABG is the treatment of choice. CABG is scheduled for tomorrow pm by Dr Fernandez pt needs to be off of plavix for 5-7 days as long as remains stable WILL cont lovenox until tonight and stop after for CABG THANK YOU. RACHEL CALLAHAN MD [facility] Problems: RACHEL CALLAHAN MD Sep 03, 2017 08:09
[2017-09-03] MEDS: ASPIRIN 81 MG TAB PO SCH (08:44)
[2017-09-03] MEDS: VALSARTAN 160 MG TAB PO SCH ×2 (08:45→21:35)
[2017-09-03] MEDS: ISOSORBIDE MONONITRATE(SR)30 MG TAB PO SCH (08:45)
[2017-09-03] MEDS: FUROSEMIDE 40 MG TAB PO SCH (08:45)
[2017-09-03] MEDS: ENOXAPARIN 60 MG/0.6 ML SYG SC SCH ×2 (08:57→21:37)
[2017-09-03] MEDS: morphine 2 MG INJ IV PRN (11:41)
--- NOTE | 2017-09-03 11:50 | PN ---
Date/Time of Note Date/Time of Note DATE: 09/03/17 TIME: 11:49 Assessment/Plan VTE Prophylaxis VTE Prophylaxis Intervention: SCD's Lines/Catheters IV Catheter Type (from Nrs): Peripheral IV Urinary Cath still in place: No Assessment/Plan Assessment/Plan Assessment/Plan 62 yo M with known CAD, chronic systolic HF admitted for chest pain. Cardiac cath 10.30 notable for multivessel CAD for which cardiology service is advising CABG PLAN CT surgery eval-->CABG pending, tentatively tomorrow. NPO at NE order entered cont asa, BP control, DM control, lipid control. plavix as per cards Subjective 24 Hr Interval Summary Free Text/Dictation Pt sleeping this AM Exam/Review of Systems Vital Signs Vitals Vital Signs Date Time Temp Pulse Resp B/P Pulse Ox O2 Delivery O2 Flow Rate FiO2 09/03/17 11:13 98.4 80 18 108/55 97 08/31/17 12:00 Room Air Intake and Output 09/02/17 09/02/17 09/03/17 15:00 23:00 07:00 Intake Total 900 ml 360 ml Balance 900 ml 360 ml Exam nad resp nonlabored no abd distension no edema no rashes Results Result Diagram: 09/03/17 0547 09/03/17 0547 Results 24 hrs Laboratory Tests Test 09/02/17 12:40 09/02/17 17:26 09/02/17 21:26 09/03/17 02:43 Bedside Glucose 360 H 253 H 247 H 169 Test 09/03/17 05:47 09/03/17 07:51 White Blood Count 8.7 Red Blood Count 4.66 L Hemoglobin 14.2 Hematocrit 42.0 Mean Corpuscular Volume 90.1 Mean Corpuscular Hemoglobin 30.5 Mean Corpuscular Hemoglobin Concent 33.8 Red Cell Distribution Width 12.8 Platelet Count 202 Mean Platelet Volume 11.9 H Neutrophils % 50.8 Lymphocytes % 39.2 Monocytes % 7.7 Eosinophils % 1.6 Basophils % 0.5 Nucleated Red Blood Cells % 0.0 Neutrophils # 4.4 Lymphocytes # 3.4 H Monocytes # 0.7 Eosinophils # 0.1 Basophils # 0.0 Nucleated Red Blood Cells # 0.0 Sodium Level 143 Potassium Level 4.3 Chloride Level 105 Carbon Dioxide Level 26 Anion Gap 16 Blood Urea Nitrogen 13 Creatinine 0.79 Glucose Level 193 Calcium Level 9.4 Total Bilirubin 0.8 Direct Bilirubin 0.00 Indirect Bilirubin 0.8 Aspartate Amino Transf (AST/SGOT) 24 Alanine Aminotransferase (ALT/SGPT) 32 Alkaline Phosphatase 73 B-Type Natriuretic Peptide 625 H Total Protein 7.5 Albumin 4.3 Globulin 3.20 Albumin/Globulin Ratio 1.34 Bedside Glucose 224 H Medications Medications Current Medications Lorazepam (Ativan) 0.5 mg Q8H PRN PO ANXIETY; Start 08/29/17 at 02:00 Ondansetron HCl (Zofran Inj) 4 mg Q6H PRN IV NAUSEA AND/OR VOMITING; Start at 02:00 Nitroglycerin (Nitroglycerin (Sl Tab) 0.4 Mg) 1 tab Q5M PRN SL CHEST PAIN Last administered on 08/29/17 18:49; Admin Dose 1 TAB; Start 08/29/17 at 02:00 Acetaminophen (Tylenol Tab) 650 mg Q6H PRN PO PAIN LEVEL 1-3 OR FEVER; Start 08/29/17 at 02:00 Insulin Glargine (Lantus) 20 unit DAILY@08 SC Last administered on 09/03/17 08 :02; Admin Dose 20 UNIT; Start 08/29/17 at 08:00 Diagnostic Test (Pha) (Accu-Chek) 1 ea 02 XX Last administered on 09/03/17 02: 44; Admin Dose 1 EA; Start 08/30/17 at 02:00 Diagnostic Test (Pha) (Accu-Chek) 1 ea 02 XX Last administered on 09/03/17 02: 44; Admin Dose 1 EA; Start 08/30/17 at 02:00 Miscellaneous Information 1 ea NOTE XX ; Start 08/29/17 at 10:30 Glucose (Glutose) 15 gm Q15M PRN PO DECREASED GLUCOSE; Start 08/29/17 at 10:30 Glucose (Glutose) 22.5 gm Q15M PRN PO DECREASED GLUCOSE; Start 08/29/17 at 10: 30 Dextrose (D50w Syringe) 25 ml Q15M PRN IV DECREASED GLUCOSE; Start 08/29/17 at 10:30 Dextrose (D50w Syringe) 50 ml Q15M PRN IV DECREASED GLUCOSE; Start 08/29/17 at 10:30 Glucagon (Glucagen) 1 mg Q15M PRN IM DECREASED GLUCOSE; Start 08/29/17 at 10: 30 Glucose (Glutose) 15 gm Q15M PRN BUCCAL DECREASED GLUCOSE; Start 08/29/17 at 10:30 Valsartan (Diovan) 160 mg BID PO Last administered on 09/03/17 08:45; Admin Dose 160 MG; Start 08/30/17 at 21:00 Furosemide (Lasix) 40 mg DAILY PO Last administered on 09/03/17 08:45; Admin Dose 40 MG; Start 08/31/17 at 09:00 Morphine Sulfate (morphine) 2 mg Q2H PRN IV FOR NON CARDIAC PAIN (4-10) Last administered on 09/03/17 11:41; Admin Dose 2 MG; Start 08/31/17 at 10:00 Isosorbide Mononitrate (Imdur) 30 mg DAILY PO Last administered on 09/03/17 08 :45; Admin Dose 30 MG; Start 08/31/17 at 15:30 Atorvastatin Calcium (Lipitor) 80 mg DAILY@21 PO Last administered on 21:19; Admin Dose 80 MG; Start 09/01/17 at 21:00 Enoxaparin Sodium (Lovenox) 60 mg BID SC Last administered on 09/03/17 08:57; Admin Dose 60 MG; Start 09/01/17 at 21:00; Stop 09/03/17 at 23:00 Aspirin (Aspirin) 81 mg DAILY PO Last administered on 09/03/17 08:44; Admin Dose 81 MG; Start 09/02/17 at 09:00 Carvedilol (Coreg) 25 mg BID PO Last administered on 09/03/17 08:58; Admin Dose 25 MG; Start 09/03/17 at 09:00 KAYCEE SWARTZ MD Sep 03, 2017 11:50
--- NOTE | 2017-09-03 20:06 | PN ---
Date/Time of Note Date/Time of Note DATE: 09/03/17 TIME: 20:05 Assessment/Plan Lines/Catheters IV Catheter Type (from Nrsg): Peripheral IV Carbajal in Place (from Nrsg): No Assessment/Plan Chief Complaint/Hosp Course Coronary artery disease Cardiomyopathy with ejection fraction 40% Status post Plavix Cuspid the family Plan for coronary artery bypass grafting on tomorrow risk and benefits explained Problems: Subjective 24 Hr Interval Summary Constitutional: improved Pain Control: mild Exam/Review of Systems Vital Signs Vitals Vital Signs Date Time Temp Pulse Resp B/P Pulse Ox O2 Delivery O2 Flow Rate FiO2 09/03/17 16:19 78 09/03/17 16:10 98.3 18 131/60 97 08/31/17 12:00 Room Air Intake and Output 09/02/17 09/02/17 09/03/17 15:00 23:00 07:00 Intake Total 900 ml 360 ml Balance 900 ml 360 ml Exam ENMT: mucosa pink and moist, nl external ears & nose, nl lips & teeth, nl nasal mucosa & septum Neck: non-tender, supple Respiratory: clear to auscultation, normal air movement Cardiovascular: nl pulses, regular rate and rhythm Gastrointestinal: nl liver, spleen, non-tender, soft Results Result Diagram: 09/03/17 0547 09/03/17 0547 MARIE OQUENDO MD Sep 03, 2017 20:06
[2017-09-03] MEDS: ATORVASTATIN 80 MG TAB PO SCH (21:34)
[2017-09-04] VITALS (29 sets, daily range): BP systolic 97–171; BP diastolic 53–89; PULSE 64–112; RESP 12–28; TEMP 98.6–99.6
[2017-09-04] MEDS ORDERED: ACCU-CHEK XX SCH (02:00)
[2017-09-04] MEDS: ACCU-CHEK XX SCH ×6 (02:22→23:59)
[2017-09-04] MEDS ORDERED: NITROGLYCERIN 50 MG/D5W 250 ML BTL ONE (07:00)
[2017-09-04] MEDS ORDERED: MILRINONE LACTATE 20 MG/D5W 100 ML BAG ONE (07:00)
[2017-09-04] MEDS ORDERED: DOPamine-D5W 1.6 MG/ML 250 ML ONE (07:00)
[2017-09-04] MEDS ORDERED: INSULIN REGULAR, HUMAN 100 UNIT/1 ML 3ML VIAL ONE (07:00)
[2017-09-04] MEDS: INSULIN ASPART [NOVOLOG] 3 ML PEN SC SCH ×6 (07:55→17:35)
[2017-09-04] MEDS: ASPIRIN 81 MG TAB PO SCH (08:13)
[2017-09-04] MEDS: ISOSORBIDE MONONITRATE(SR)30 MG TAB PO SCH (08:13)
[2017-09-04] MEDS: VALSARTAN 160 MG TAB PO SCH ×2 (08:13→21:00)
[2017-09-04] MEDS: FUROSEMIDE 40 MG TAB PO SCH (08:13)
[2017-09-04] MEDS: INSULIN GLARGINE [LANtus] 3 ML PEN SC SCH (08:18)
--- NOTE | 2017-09-04 11:21 | PN ---
Date/Time of Note Date/Time of Note DATE: 09/04/17 TIME: 11:19 Assessment/Plan VTE Prophylaxis VTE Prophylaxis Intervention: SCD's Lines/Catheters IV Catheter Type (from Nrsg): Peripheral IV Urinary Cath still in place: No Assessment/Plan Assessment/Plan 62 yo M with known CAD, chronic systolic HF admitted for chest pain. Cardiac cath 10.30 notable for multivessel CAD for which cardiology service is advising CABG PLAN CABG today cont asa, BP control, DM control, lipid control. plavix as per cards Subjective 24 Hr Interval Summary Free Text/Dictation slated for CABG today Exam/Review of Systems Vital Signs Vitals Vital Signs Date Time Temp Pulse Resp B/P Pulse Ox O2 Delivery O2 Flow Rate FiO2 09/04/17 08:18 98.0 71 18 171/81 97 08/31/17 12:00 Room Air Intake and Output 09/03/17 09/03/17 09/04/17 15:00 23:00 07:00 Intake Total 550 ml 340 ml Balance 550 ml 340 ml Exam laying in bed, surrounded by family resp nonlabored no abd distension no rashes no edema Results Result Diagram: 09/03/17 0547 09/03/17 0547 Results 24 hrs Laboratory Tests Test 09/03/17 11:50 09/03/17 17:43 09/03/17 21:42 09/04/17 02:20 Bedside Glucose 353 H 315 H 279 H 201 Test 09/04/17 07:36 Bedside Glucose 220 Medications Medications Current Medications Lorazepam (Ativan) 0.5 mg Q8H PRN PO ANXIETY; Start 08/29/17 at 02:00 Ondansetron HCl (Zofran Inj) 4 mg Q6H PRN IV NAUSEA AND/OR VOMITING; Start at 02:00 Nitroglycerin (Nitroglycerin (Sl Tab) 0.4 Mg) 1 tab Q5M PRN SL CHEST PAIN Last administered on 08/29/17 18:49; Admin Dose 1 TAB; Start 08/29/17 at 02:00 Acetaminophen (Tylenol Tab) 650 mg Q6H PRN PO PAIN LEVEL 1-3 OR FEVER; Start 08/29/17 at 02:00 Insulin Glargine (Lantus) 20 unit DAILY@08 SC Last administered on 09/04/17 08 :18; Admin Dose 20 UNIT; Start 08/29/17 at 08:00 Diagnostic Test (Pha) (Accu-Chek) 1 ea 02 XX Last administered on 09/04/17 02: 22; Admin Dose 1 EA; Start 08/30/17 at 02:00 Miscellaneous Information 1 ea NOTE XX ; Start 08/29/17 at 10:30 Glucose (Glutose) 15 gm Q15M PRN PO DECREASED GLUCOSE; Start 08/29/17 at 10:30 Glucose (Glutose) 22.5 gm Q15M PRN PO DECREASED GLUCOSE; Start 08/29/17 at 10: 30 Dextrose (D50w Syringe) 25 ml Q15M PRN IV DECREASED GLUCOSE; Start 08/29/17 at 10:30 Dextrose (D50w Syringe) 50 ml Q15M PRN IV DECREASED GLUCOSE; Start 08/29/17 at 10:30 Glucagon (Glucagen) 1 mg Q15M PRN IM DECREASED GLUCOSE; Start 08/29/17 at 10: 30 Glucose (Glutose) 15 gm Q15M PRN BUCCAL DECREASED GLUCOSE; Start 08/29/17 at 10:30 Valsartan (Diovan) 160 mg BID PO Last administered on 09/04/17 08:13; Admin Dose 160 MG; Start 08/30/17 at 21:00 Furosemide (Lasix) 40 mg DAILY PO Last administered on 09/04/17 08:13; Admin Dose 40 MG; Start 08/31/17 at 09:00 Morphine Sulfate (morphine) 2 mg Q2H PRN IV FOR NON CARDIAC PAIN (4-10) Last administered on 09/03/17 11:41; Admin Dose 2 MG; Start 08/31/17 at 10:00 Isosorbide Mononitrate (Imdur) 30 mg DAILY PO Last administered on 09/04/17 08 :13; Admin Dose 30 MG; Start 08/31/17 at 15:30 Atorvastatin Calcium (Lipitor) 80 mg DAILY@21 PO Last administered on 21:34; Admin Dose 80 MG; Start 09/01/17 at 21:00 Aspirin (Aspirin) 81 mg DAILY PO Last administered on 09/04/17 08:13; Admin Dose 81 MG; Start 09/02/17 at 09:00 Carvedilol 25 mg 25 mg BID PO Last administered on 11/3/17at 08:14; Admin Dose 25 MG; Start 09/03/17 at 09:00 Epinephrine 4 mg/ Dextrose 250 ml @ 0 mls/hr INTRA-OP IV ; Start 09/04/17 at 13: 30; Stop 09/04/17 at 20:00 Phenylephrine HCl 250 ml @ 0 mls/hr INTRA-OP IV ; Start 09/04/17 at 13:30; Stop 09/04/17 at 20:00 Insulin Human Regular/Sodium Chloride (Novolin-R/NS) 100 ml @ 0 mls/hr INTRA-OP IV ; Start 09/04/17 at 13:30; Stop 09/04/17 at 20:00 KAYCEE SWARTZ MD Sep 04, 2017 11:21
[2017-09-04] MEDS ORDERED: GELATIN SIZE 100 SPONGE ONE (11:34)
[2017-09-04] MEDS ORDERED: VANCOMYCIN 1 GM INJ ONE ×2 (11:34→15:15)
[2017-09-04] MEDS ORDERED: PAPAVERINE 60 MG INJ ONE (11:34)
[2017-09-04] MEDS ORDERED: HEPARIN 1000 UNITS/ML 10 ML INJ ONE ×4 (11:34→17:23)
[2017-09-04] MEDS ORDERED: MIDAZOLAM 5 ML ONE ×2 (12:22→15:49)
[2017-09-04] MEDS ORDERED: PHENYLephrine (100 MCG/ML) 5ML SYG ONE ×4 (12:26→17:10)
[2017-09-04] MEDS ORDERED: ALBUMIN HUMAN 25% 300 ML ONE (12:49)
[2017-09-04] MEDS ORDERED: CA CHLORIDE 10% 10 ML SYRINGE ONE (12:50)
[2017-09-04] MEDS ORDERED: AMINOCAPROIC ACID 5 GM INJ ONE ×4 (12:50→17:12)
[2017-09-04] MEDS ORDERED: POTASSIUM CHLORIDE 40 MEQ INJ ONE (12:52)
[2017-09-04] MEDS ORDERED: LIDOCAINE 100 MG SYRINGE ONE (12:52)
[2017-09-04] MEDS ORDERED: PHENYLephrine 10 MG INJ ONE (12:53)
[2017-09-04] MEDS ORDERED: MAGNESIUM SULFATE (MG) 50% 10 ML INJ ONE (12:53)
[2017-09-04] MEDS ORDERED: NA BICARBONATE 8.4% 50 ML SYG ONE (12:54)
[2017-09-04] MEDS ORDERED: MANNITOL 20% 250 ML IV ONE (12:55)
[2017-09-04] MEDS ORDERED: PHENYLephrine 20MG IN 250 ML 250 ML IV SCH ×2 (13:30→19:30)
[2017-09-04] MEDS ORDERED: EPINEPHrine 4 MG in DEXTROSE 5% 246 ML IV SCH (13:30)
[2017-09-04] MEDS ORDERED: INSULIN HUMAN REGULAR 100 UNIT in SOD CHLORIDE 0.9% 99 ML IV SCH ×2 (13:30→20:00)
[2017-09-04] MEDS ORDERED: CEFAZOLIN 1 GM INJ ONE ×2 (14:46→17:12)
[2017-09-04] MEDS ORDERED: LIDOCAINE 2% (SDV) 5 ML INJ ONE (17:15)
[2017-09-04] MEDS ORDERED: ETOMIDATE 20 MG INJ ONE (17:15)
[2017-09-04] MEDS ORDERED: ROCURONIUM 50 MG INJ ONE ×3 (17:15→17:16)
[2017-09-04] MEDS ORDERED: PROTAMINE 250 MG INJ ONE (17:15)
[2017-09-04] MEDS ORDERED: FUROSEMIDE 20 MG INJ ONE (17:56)
[2017-09-04] MEDS ORDERED: hydrALAzine 20 MG INJ ONE (18:13)
--- NOTE | 2017-09-04 19:12 | OPR ---
Date/Time of Note Date/Time of Note DATE: 09/04/17 TIME: 19:10 Operative Report Procedure Date: Sep 04, 2017 Preoperative Diagnosis CAD Postoperative Diagnosis CAD Operation/Procedure Performed SHAW TO LAD SVG TO RI SVG TO PDA Endoscopic RLE Saph vein harvest Surgeon see signature line District Manager In Training Shakila Zafar Anesthesia Type: general Estimated Blood Loss: other Transfusion PLT Specimen none Grafts/Implants none Tubes/Drains CT Complications none Pt Condition Post Procedure: critical Procedure Description Dictated MARIE OQUENDO MD Sep 04, 2017 19:12
[2017-09-04] MEDS ORDERED: PROPOFOL 100 ML ONE (19:15)
[2017-09-04] MEDS ORDERED: NITROGLYCERIN 50 MG/D5W (PMX) 250 ML IV SCH (19:30)
[2017-09-04] MEDS ORDERED: MEPERIDINE 25 MG INJ IV PRN (19:30)
[2017-09-04] MEDS ORDERED: DOPamine-D5W 1.6 MG/ML 250 ML IV SCH (19:30)
[2017-09-04] MEDS ORDERED: ONDANSETRON 4 MG INJ IV PRN (19:30)
[2017-09-04] MEDS ORDERED: EPHEDrine SULFATE 50 MG/5 ML SYG IV PRN (19:30)
[2017-09-04] MEDS ORDERED: DIPHENHYDRAMINE 50 MG INJ IV PRN (19:30)
[2017-09-04] MEDS ORDERED: morphine (1 MG/ML) 10ML SYRINGE IV PRN ×3 (19:30)
[2017-09-04 19:36] LABS: HEMATOCRIT 31.3 % (42.0-52.0); HEMOGLOBIN 10.8 g/dl (14.0-18.0); MEAN CORPUSCULAR HEMOGLOBIN 31.2 pg (29.0-33.0); MEAN CORPUSCULAR HGB CONC 34.5 g/dl (32.0-37.0); MEAN CORPUSCULAR VOLUME 90.5 fl (82.0-101.0); MEAN PLATELET VOLUME 11.6 fl (7.4-10.4); POSITIVE DIFF @See below; RED BLOOD COUNT 3.46 10^6/ul (4.70-6.10); RED CELL DISTRIBUTION WIDTH 12.8 % (11.5-14.5); WHITE BLOOD COUNT 12.6 10^3/ul (4.8-10.8)
--- NOTE | 2017-09-04 19:48 | CONS ---
Date/Time of Note Date/Time of Note DATE: 09/04/17 TIME: 19:45 Consult Date/Type/Reason Admit Date/Time Aug 28, 2017 at 23:44 Initial Consult Date 08/31/17 Type of Consultation: Card consult Subjective cardiology follow up note: S: d/w staff and Dr Fernandez d/w multiple family members. pt s/p CABG intubated on multiple drips in ICU O: General: S/P intubation on vent HEENT: NC/AT. pupils are equal. round. NECK: s/p R IJ catheter. no stridor. CV: RRR. systolic murmur; no gallop or rubs. PULM: no wheezing or rhonchi. chest: s/p sternotomy. s/p chest tube. GI: SOFT, NT, ND, no rebound or guarding Extremity: trace B/L LE edema. no clubbing. neuro: drowsy but responds appropriately Psych: calm and pleasant rectal: deferred ECHO EF 40% Objective Vital Signs Date Time Temp Pulse Resp B/P Pulse Ox O2 Delivery O2 Flow Rate FiO2 09/04/17 19:19 98.9 09/04/17 19:15 95 16 100 100 09/04/17 12:18 131/63 08/31/17 12:00 Room Air Intake and Output 09/03/17 09/03/17 09/04/17 15:00 23:00 07:00 Intake Total 550 ml 340 ml Balance 550 ml 340 ml Results/Medications Result Diagram: 09/03/17 0547 09/03/17 0547 Results 24 hrs Laboratory Tests Test 09/03/17 21:42 09/04/17 02:20 09/04/17 07:36 09/04/17 11:48 Bedside Glucose 279 H 201 220 226 H Test 09/04/17 19:08 09/04/17 19:30 Bedside Glucose 110 White Blood Count Pending Red Blood Count Pending Hemoglobin Pending Hematocrit Pending Mean Corpuscular Volume Pending Mean Corpuscular Hemoglobin Pending Mean Corpuscular Hemoglobin Concent Pending Red Cell Distribution Width Pending Platelet Count Pending Mean Platelet Volume Pending Medications Current Medications Lorazepam (Ativan) 0.5 mg Q8H PRN PO ANXIETY; Start 08/29/17 at 02:00 Ondansetron HCl (Zofran Inj) 4 mg Q6H PRN IV NAUSEA AND/OR VOMITING; Start at 02:00 Nitroglycerin (Nitroglycerin (Sl Tab) 0.4 Mg) 1 tab Q5M PRN SL CHEST PAIN Last administered on 08/29/17 18:49; Admin Dose 1 TAB; Start 08/29/17 at 02:00 Acetaminophen (Tylenol Tab) 650 mg Q6H PRN PO PAIN LEVEL 1-3 OR FEVER; Start 08/29/17 at 02:00 Insulin Glargine (Lantus) 20 unit DAILY@08 SC Last administered on 09/04/17 08 :18; Admin Dose 20 UNIT; Start 08/29/17 at 08:00 Diagnostic Test (Pha) (Accu-Chek) 1 ea 02 XX Last administered on 09/04/17 02: 22; Admin Dose 1 EA; Start 08/30/17 at 02:00 Miscellaneous Information 1 ea NOTE XX ; Start 08/29/17 at 10:30 Glucose (Glutose) 15 gm Q15M PRN PO DECREASED GLUCOSE; Start 08/29/17 at 10:30 Glucose (Glutose) 22.5 gm Q15M PRN PO DECREASED GLUCOSE; Start 08/29/17 at 10: 30 Dextrose (D50w Syringe) 25 ml Q15M PRN IV DECREASED GLUCOSE; Start 08/29/17 at 10:30 Dextrose (D50w Syringe) 50 ml Q15M PRN IV DECREASED GLUCOSE; Start 08/29/17 at 10:30 Glucagon (Glucagen) 1 mg Q15M PRN IM DECREASED GLUCOSE; Start 08/29/17 at 10: 30 Glucose (Glutose) 15 gm Q15M PRN BUCCAL DECREASED GLUCOSE; Start 08/29/17 at 10:30 Valsartan (Diovan) 160 mg BID PO Last administered on 09/04/17 08:13; Admin Dose 160 MG; Start 08/30/17 at 21:00 Furosemide (Lasix) 40 mg DAILY PO Last administered on 09/04/17 08:13; Admin Dose 40 MG; Start 08/31/17 at 09:00 Morphine Sulfate (morphine) 2 mg Q2H PRN IV FOR NON CARDIAC PAIN (4-10) Last administered on 09/03/17 11:41; Admin Dose 2 MG; Start 08/31/17 at 10:00 Isosorbide Mononitrate (Imdur) 30 mg DAILY PO Last administered on 09/04/17 08 :13; Admin Dose 30 MG; Start 08/31/17 at 15:30 Atorvastatin Calcium (Lipitor) 80 mg DAILY@21 PO Last administered on 21:34; Admin Dose 80 MG; Start 09/01/17 at 21:00 Aspirin (Aspirin) 81 mg DAILY PO Last administered on 09/04/17 08:13; Admin Dose 81 MG; Start 09/02/17 at 09:00 Carvedilol 25 mg 25 mg BID PO Last administered on 09/04/17 08:14; Admin Dose 25 MG; Start 09/03/17 at 09:00 Epinephrine 4 mg/ Dextrose 250 ml @ 0 mls/hr INTRA-OP IV ; Start 09/04/17 at 13: 30; Stop 09/04/17 at 20:00 Phenylephrine HCl 250 ml @ 0 mls/hr INTRA-OP IV ; Start 09/04/17 at 13:30; Stop 09/04/17 at 20:00 Insulin Human Regular 100 unit/ Sodium Chloride 100 ml @ 0 mls/hr INTRA-OP IV ; Start 09/04/17 at 13:30; Stop 09/04/17 at 20:00 Propofol (Diprivan) 100 ml @ 2.826 mls/ hr Q12H IV ; Start 09/04/17 at 19:30; Status UNV Miscellaneous Information (* Miscellaneous Pharmacy Order) Discontinue all previ... PROTOCOL ONCE XX ; Start 09/04/17 at 20:00; Stop 09/04/17 at 20:01; Status UNV Diagnostic Test (Pha) (Accu-Chek) 1 ea Q1H XX ; Start 09/04/17 at 20:00; Status UNV Dextrose (D50w Syringe) 25 ml Q15M PRN IV Till BS 80 mg/dL or above x2; Start 09/04/17 at 20:00; Status UNV Dextrose (D50w Syringe) 50 ml Q15M PRN IV Till BS 80 mg/dL or above x2; Start 09/04/17 at 20:00; Status UNV Assessment/Plan Chief Complaint/Hosp Course 1. ACS: 2. Multivessel CAD: S/P CABG 3 vessel. 09/04/17 3. ISCHEMIC CARDIOMYOPATHY 4. DM 5. HTN 6. CHF: due to systolic heart failure and chronic and stable now 7. post op resp failure: intubated now Rec cont post op care weaning if tolerated tonight. cont multiple pressors as needed and wean off cont close hemodynamic monitoring and ICU care More than 38 minutes of critical care time was spent in management and treatment of this patient excluding any procedures. THANK YOU. RACHEL CALLAHAN MD [facility] Problems: RACHEL CALLAHAN MD Sep 04, 2017 19:48
[2017-09-04] MEDS: morphine 2 MG INJ IV PRN (19:49)
[2017-09-04] MEDS ORDERED: POTASSIUM CHLORIDE 50 ML IVPB PRN (20:00)
[2017-09-04] MEDS: POTASSIUM CHLORIDE 40 MEQ in DEXTROSE 5%-0.225% NACL 1,000 ML IV SCH (20:00)
[2017-09-04] MEDS ORDERED: DEXTROSE 50% 50 ML SYRINGE IV PRN ×2 (20:00)
[2017-09-04 20:01] LABS: CALCIUM 8.2 mg/dl (8.4-10.2); CREATININE 0.86 mg/dl (0.61-1.24); MAGNESIUM 2.3 mg/dl (1.7-2.5); PLATELET COUNT 133 10^3/UL (140-415); POTASSIUM 3.7 mmol/L (3.5-5.1)
[2017-09-04] MEDS: PROPOFOL 100 ML IV SCH (20:01)
[2017-09-04] MEDS ORDERED: MILRINONE LACTATE 100 ML IV SCH (20:30)
[2017-09-04] MEDS: ATORVASTATIN 80 MG TAB PO SCH (21:27)
[2017-09-04] MEDS: CEFAZOLIN 1 GM/50 ML (PMX) 50 ML IVPB SCH (21:49)
[2017-09-04 22:09] LABS: LYMPHOCYTES # 2.9 10^3/ul (0.8-2.9); MONOCYTE # 0.3 10^3/ul (0.3-0.9); MONOCYTES % (M) 2 % (0-11)
[2017-09-04 22:34] LABS: MODE VENT - AC; MetHgb Venous 0.2 %; Sample Type BLMV; Venous COHb 0.3 %; Venous Fraction OxyHgb 83.1 %; Venous Total Hemglobin 10.8 g/dl
[2017-09-04 23:11] LABS: AADO2 Arterial 170.9 mmHg (7.0-24.0); Arterial Base Excess 0.4 mmol/L (-3.0-3); Arterial COHb 0.3 % (0.0-3.0); Arterial Fraction of Oxyhgb 93.7 % (93.0-99.0); Arterial HCO3 24.3 mmol/L (22.0-26.0); Arterial MetHb 0.2 % (0.0-1.5); Arterial Total Hemglobin 12.2 g/dl (12.0-18.0); Blood Gas PS 10; MODE VENT - CPAP
[2017-09-05] VITALS (78 sets, daily range): BP systolic 65–165; BP diastolic 49–76; PULSE 84–99; RESP 19–36; TEMP 99.6–100.9
[2017-09-05] MEDS: ACCU-CHEK XX SCH ×19 (01:53→18:48)
[2017-09-05 02:41] LABS: BASOPHILS % 0.2 % (0.0-2.0); EOSINOPHILS % 0.3 % (0.0-7.0); HEMATOCRIT 32.6 % (42.0-52.0); HEMOGLOBIN 11.2 g/dl (14.0-18.0); LYMPHOCYTES # 1.2 10^3/ul (0.8-2.9); LYMPHOCYTES % 9.8 % (15.0-51.0); MEAN CORPUSCULAR HEMOGLOBIN 31.4 pg (29.0-33.0); MEAN CORPUSCULAR HGB CONC 34.4 g/dl (32.0-37.0); MEAN CORPUSCULAR VOLUME 91.3 fl (82.0-101.0); MEAN PLATELET VOLUME 12.7 fl (7.4-10.4); MONOCYTE # 1.2 10^3/ul (0.3-0.9); MONOCYTES % 10.1 % (0.0-11.0); NEUTROPHIL # 9.6 10^3/ul (1.6-7.5); NEUTROPHILS % 79.1 % (39.0-77.0); PLATELET COUNT 154 10^3/UL (140-415); RED BLOOD COUNT 3.57 10^6/ul (4.70-6.10); RED CELL DISTRIBUTION WIDTH 13.2 % (11.5-14.5); WHITE BLOOD COUNT 12.1 10^3/ul (4.8-10.8)
[2017-09-05 03:06] LABS: CALCIUM 8.8 mg/dl (8.4-10.2); CREATININE 0.82 mg/dl (0.61-1.24); POTASSIUM 3.9 mmol/L (3.5-5.1)
[2017-09-05] MEDS: morphine 2 MG INJ IV PRN ×8 (03:39→20:07)
--- NOTE | 2017-09-05 04:51 | RADRPT ---
PROCEDURE: XR Chest. CLINICAL INDICATION: CABG - POST OP TECHNIQUE: Single portable view of the chest was obtained COMPARISON: CR CHEST 04/27/2013; CR CHEST 10/16/2008 FINDINGS: An endotracheal tube terminates 3.6 cm above the lefty. Right internal jugular [place]-Sivan catheter t erminates in the main pulmonary artery, left chest tube and mediastinal drain are present. Stable configuration of the cardiomediastinal silhouette. Interval median sternotomy and post CABG c hanges. Mild bibasilar, left greater than right atelectasis. No evidence of a pneumothorax or conges tive heart failure. IMPRESSION: 1. Support lines and tubes in satisfactory position. 2. Interval median sternotomy and post CABG changes. 3. Bibasilar, left greater than right atelectasis. RPTAT: HRSR Physician Aniya Date Time Electronically viewed and signed by Physician Aniya on 09/05/2017 04:50 RR/
--- NOTE | 2017-09-05 05:30 | OPR ---
DATE OF OPERATION: PREOPERATIVE DIAGNOSIS: Coronary artery disease. POSTOPERATIVE DIAGNOSIS: Coronary artery disease. OPERATION PERFORMED: 1. Coronary artery bypass grafting, left internal mammary artery (SHAW) to left anterior descending (LAD), saphenous vein graft to posterior descending artery (PDA), saphenous vein graft to the ramus intermedius. 2. Endoscopic saphenous vein harvest from the left lower extremity. SURGEON: Marie Fernandez MD BARREL MAKER: Ely Morales MD SECOND TITLE AGENT: Dena CONSENT: Risks, benefits, complications, alternative therapies explained to the patient and the [facility] delbert, consent obtained. OPERATIVE TECHNIQUE: The patient was placed in supine position, prepped and draped in the usual cristel rile fashion. A timeout was called. A sternotomy incision was made from the sternum down to the xi phoid process. Simultaneously, saphenous vein was harvested from the left lower extremity from the left thigh using endoscopic technique. The sternum was opened in the mid aspect of the sternum. Le ft internal mammary artery was harvested using titanium clips and electrocautery. A chest retractor was placed, pericardium opened, cannulation sutures of 3-0 Prolene with pledgets were applied to th e distal ascending aorta, mid ascending aorta, body of the right atrium, and right atrial appendage. The patient was fully heparinized. After adequate documentation of ACT, aorta was cannulated, fol lowed by 2-stage venous cannula, antegrade and retrograde cardioplegia cannula. The heart was arres lisa after placing a crossclamp and giving the cardioplegia antegrade and retrograde, supplemented by topical slush to the surface of the heart. Myocardial protection in this fashion was continued brigitte ry 15 minutes. We proceeded with distal anastomosis as described above. Saphenous vein to the PDA, saphenous vein to the ramus intermedius, SHAW to LAD. I could not find any obtuse marginal branch and once then I opened the ramus intermedius was brought out proximally secondary to blo ckage. All distal anastomoses were done to 8 mm longitudinal arteriotomy, 7-0 Prolene in continuous suture technique, end-to-side fashion. The proximal 2 anastomoses were done. The same crossclamp, 4.5 mm punch, 6-0 Prolene continuous suture technique, end-to-side manner. Head was placed in stee p Trendelenburg position, crossclamp removed. The heart and the grafts were deaired. The patient c ana maria off cardiopulmonary bypass, protamine given, cannulas removed, sutures tied. Two mediastinal ch est tubes were placed, brought out through a lower stab wound, secured to the skin using 2-0 silk mcdonough tures. No evidence of any bleeding was noted. The sternum was closed using the cable system x4, a [id number]. The linea alba and the deep tissues were irrigated and closed in 2 layers of #1 Vi cryl suture for the deep, 2-0 Vicryl suture for the subcutaneous, 4-0 Monocryl suture for running mcdonough bcuticular skin closure. The leg was closed in a similar fashion. The patient tolerated the proced ure well. Dictated By: MARIE FERNANDEZ MD FM/DUSTY Conf#: [id number] DID#: [id number] CC: SHIRLEY JEAN MD; ELY MORALES MD;*EndCC*
[2017-09-05] MEDS: CEFAZOLIN 1 GM/50 ML (PMX) 50 ML IVPB SCH ×2 (05:31→14:09)
[2017-09-05 06:21] LABS: BASOPHILS % 0.2 % (0.0-2.0); EOSINOPHILS % 0.1 % (0.0-7.0); HEMATOCRIT 34.9 % (42.0-52.0); HEMOGLOBIN 11.6 g/dl (14.0-18.0); LYMPHOCYTES % 7.8 % (15.0-51.0); MEAN CORPUSCULAR HEMOGLOBIN 30.6 pg (29.0-33.0); MEAN CORPUSCULAR HGB CONC 33.2 g/dl (32.0-37.0); MEAN CORPUSCULAR VOLUME 92.1 fl (82.0-101.0); MEAN PLATELET VOLUME 12.5 fl (7.4-10.4); MONOCYTE # 1.2 10^3/ul (0.3-0.9); MONOCYTES % 9.1 % (0.0-11.0); NEUTROPHIL # 10.8 10^3/ul (1.6-7.5); NEUTROPHILS % 82.5 % (39.0-77.0); PLATELET COUNT 168 10^3/UL (140-415); RED BLOOD COUNT 3.79 10^6/ul (4.70-6.10); RED CELL DISTRIBUTION WIDTH 13.5 % (11.5-14.5); WHITE BLOOD COUNT 13.1 10^3/ul (4.8-10.8)
[2017-09-05] MEDS ORDERED: hydrALAzine 20 MG INJ IV PRN (06:30)
[2017-09-05] MEDS ORDERED: hydrALAzine 20 MG INJ ONE (06:33)
[2017-09-05 07:01] LABS: CALCIUM 8.6 mg/dl (8.4-10.2); CREATININE 0.8 mg/dl (0.61-1.24); POTASSIUM 4.1 mmol/L (3.5-5.1)
[2017-09-05] MEDS: PROPOFOL 100 ML IV SCH ×3 (07:06→19:37)
[2017-09-05] MEDS: ISOSORBIDE MONONITRATE(SR)30 MG TAB PO SCH (08:36)
[2017-09-05] MEDS: ASPIRIN 81 MG TAB PO SCH (08:37)
[2017-09-05] MEDS: FUROSEMIDE 40 MG TAB PO SCH (08:37)
[2017-09-05] MEDS: VALSARTAN 160 MG TAB PO SCH ×2 (08:37→20:06)
--- NOTE | 2017-09-05 08:37 | RADRPT ---
PROCEDURE: XR Chest. CLINICAL INDICATION: Post CABG TECHNIQUE: Single frontal view of the chest was obtained COMPARISON: 09/04/2017 FINDINGS: Interval extubation. Stable [place]-Sivan catheter, mediastinal drain and left chest tube. Decreased lung volumes and decreased aeration of the left lung base. Stable large cardiomediastinal silhouette. No acute osseous abnormality. Median sternotomy changes. IMPRESSION: Interval extubation. Decreased lung volumes and decreased aeration of the left lung base, which may be due to atelectasis and / or retained secretions. Superimposed infection to be determined clinical ly. Otherwise, no convincing interval change compared to chest radiograph from prior day. RPTAT: EE Physician Rhonda Date Time Electronically viewed and signed by Physician Rhonda on 09/05/2017 08:37 /
--- NOTE | 2017-09-05 11:23 | PN ---
Date/Time of Note Date/Time of Note DATE: 09/05/17 TIME: 11:14 Assessment/Plan VTE Prophylaxis VTE Prophylaxis Intervention: SCD's Lines/Catheters IV Catheter Type (from Nrsg): A Line Urinary Cath still in place: Yes Reason Cath still needed: other (indicate) (will dc ) Assessment/Plan Assessment/Plan 62 yo M with known CAD, chronic systolic HF admitted for chest pain. Cardiac cath 10.30 notable for multivessel CAD, sp CABG 11.3. PLAN cont periprocedural abx as per protocol. If temp >101.4, will expand antimicrobial coverage cont asa, BP control, DM control, lipid control. plavix as per cards transfer out of unit decision deferred to surgery cc time 30 minutes Subjective 24 Hr Interval Summary Free Text/Dictation extubated earlier this AM. eating some ice chips. low grade fevers noted Exam/Review of Systems Vital Signs Vitals Vital Signs Date Time Temp Pulse Resp B/P Pulse Ox O2 Delivery O2 Flow Rate FiO2 09/05/17 10:30 85 26 97/52 93 09/05/17 10:00 100.4 09/05/17 08:00 Nasal Cannula 4.0 09/04/17 22:23 40 Intake and Output 09/04/17 09/04/17 09/05/17 15:00 23:00 07:00 Intake Total 2261.108 ml 607.984 ml Output Total 2732 ml 882 ml Balance -470.892 ml -274.016 ml Results Result Diagram: 09/05/17 0600 09/05/17 0600 Results 24 hrs Laboratory Tests Test 09/04/17 11:48 09/04/17 19:08 09/04/17 19:30 09/04/17 19:45 Bedside Glucose 226 H 110 White Blood Count 12.6 #H Red Blood Count 3.46 #L Hemoglobin 10.8 #L Hematocrit 31.3 #L Mean Corpuscular Volume 90.5 Mean Corpuscular Hemoglobin 31.2 Mean Corpuscular Hemoglobin Concent 34.5 Red Cell Distribution Width 12.8 Platelet Count 133 #L Mean Platelet Volume 11.6 H Segmented Neutrophils % (Manual) 70 Band Neutrophils % (Manual) 5 H Lymphocytes % (Manual) 23 Monocytes % (Manual) 2 Nucleated Red Blood Cells % 0.0 Neutrophils # (Manual) 8.9 H Band Neutrophils # 0.6 Absolute Lymphocytes (Manual) 2.8 Lymphocytes # 2.9 Monocytes # 0.3 Absolute Monocytes (Manual) 0.2 L Activated Partial Thromboplast Time 32.0 Sodium Level 144 Potassium Level 3.7 Chloride Level 109 Carbon Dioxide Level 27 Anion Gap 12 Blood Urea Nitrogen 13 Creatinine 0.86 Glucose Level 107 # Calcium Level 8.2 L Magnesium Level 2.3 Blood Gas Specimen Source Blood arterial Arterial Blood Date Drawn 09/04/2017 7:45:39 PM Arterial Blood pH (Temp corrected) 7.394 Arterial Blood pCO2 (Temp correct) 40.5 Arterial Blood pO2 (Temp corrected) 145.0 H Arterial Blood HCO3 24.2 Arterial Blood Base Excess -0.6 Arterial Blood Oxygen Saturation 98.4 H Jean Test N/A Arterial Blood Gas Puncture Site A-Line Arterial Blood Carboxyhemoglobin 0.3 Arterial Blood Methemoglobin 0.3 Venous Blood pH 7.394 Venous Blood pCO2 (Temp Corrected) 40.5 Venous Blood pO2 (Temp Corrected) 145.0 H Venous Blood HCO3 24.2 Venous Blood Oxygen Saturation 98.4 H Venous Blood Base Excess -0.6 Venous Blood Total Hemoglobin 12.1 Venous Blood Oxyhemoglobin 97.8 Venous Blood Methemoglobin 0.3 Blood Gas A-a O2 Differential 527.5 Oxyhemoglobin Percent 97.8 Carboxyhemoglobin 0.3 Total Hemoglobin 12.1 Blood Gas Temperature 37.0 Blood Gas Respiration Rate 14.0 Blood Gas Actual Respiration Rate 16 Blood Gas Modality VENT - AC FiO2 100.0 Blood Gas Tidal Volume 550.0 Blood Gas Low PEEP Setting 5.0 Blood Gas Notified Whom [place] Blood Gas Notified Time 09/04/2017 8:00:50 PM Test 09/04/17 20:00 09/04/17 20:06 09/04/17 21:16 09/04/17 22:06 Blood Gas Specimen Source [facility] Arterial Blood Date Drawn 09/04/2017 8:00:50 PM Arterial Blood Gas Puncture Site VENOUS LINE Jean Test N/A Venous Blood pO2 (Temp Corrected) 49.6 H Venous Blood Oxygen Saturation 83.5 H Venous Blood Total Hemoglobin 10.8 Venous Blood Oxyhemoglobin 83.1 Venous Blood Methemoglobin 0.2 Carboxyhemoglobin 0.3 Blood Gas Temperature 37.0 Blood Gas Respiration Rate 14.0 Blood Gas Actual Respiration Rate 16 Blood Gas Modality VENT - AC FiO2 100.0 Blood Gas Tidal Volume 550.0 Blood Gas Low PEEP Setting 5.0 Blood Gas Notified Whom [facility]ICI Blood Gas Notified Time 09/04/2017 10:34:43 PM Bedside Glucose 122 169 178 Test 09/04/17 22:46 09/04/17 23:16 09/05/17 00:03 09/05/17 01:10 Blood Gas Specimen Source Blood arterial Arterial Blood Date Drawn 09/04/2017 11:00:18 PM Arterial Blood pH (Temp corrected) 7.440 Arterial Blood pCO2 (Temp correct) 36.6 Arterial Blood pO2 (Temp corrected) 72.2 L Arterial Blood HCO3 24.3 Arterial Blood Base Excess 0.4 Arterial Blood Oxygen Saturation 94.2 L Jean Test N/A Arterial Blood Gas Puncture Site A-Line Arterial Blood Carboxyhemoglobin 0.3 Arterial Blood Methemoglobin 0.2 Blood Gas A-a O2 Differential 170.9 H Oxyhemoglobin Percent 93.7 Total Hemoglobin 12.2 Blood Gas Temperature 37.0 Blood Gas Actual Respiration Rate 24 Blood Gas Modality VENT - CPAP FiO2 40.0 Blood Gas Low PEEP Setting 5.0 Blood Gas Pressure Support 10 Blood Gas Notified Whom [place] Blood Gas Notified Time 09/04/2017 11:11:41 PM Bedside Glucose 161 171 164 Test 09/05/17 01:48 09/05/17 01:50 09/05/17 03:03 09/05/17 04:03 Bedside Glucose 161 165 157 White Blood Count 12.1 H Red Blood Count 3.57 L Hemoglobin 11.2 L Hematocrit 32.6 L Mean Corpuscular Volume 91.3 Mean Corpuscular Hemoglobin 31.4 Mean Corpuscular Hemoglobin Concent 34.4 Red Cell Distribution Width 13.2 Platelet Count 154 Mean Platelet Volume 12.7 H Neutrophils % 79.1 H Lymphocytes % 9.8 L Monocytes % 10.1 Eosinophils % 0.3 Basophils % 0.2 Nucleated Red Blood Cells % 0.0 Neutrophils # 9.6 H Lymphocytes # 1.2 Monocytes # 1.2 H Eosinophils # 0.0 Basophils # 0.0 Nucleated Red Blood Cells # 0.0 Activated Partial Thromboplast Time 38.3 H Sodium Level 145 H Potassium Level 3.9 Chloride Level 111 H Carbon Dioxide Level 28 Anion Gap 10 Blood Urea Nitrogen 15 Creatinine 0.82 Glucose Level 155 Calcium Level 8.8 Magnesium Level 2.0 Test 09/05/17 04:54 09/05/17 05:42 09/05/17 06:00 09/05/17 06:59 Bedside Glucose 173 155 140 White Blood Count 13.1 H Red Blood Count 3.79 L Hemoglobin 11.6 L Hematocrit 34.9 L Mean Corpuscular Volume 92.1 Mean Corpuscular Hemoglobin 30.6 Mean Corpuscular Hemoglobin Concent 33.2 Red Cell Distribution Width 13.5 Platelet Count 168 Mean Platelet Volume 12.5 H Neutrophils % 82.5 H Lymphocytes % 7.8 L Monocytes % 9.1 Eosinophils % 0.1 Basophils % 0.2 Nucleated Red Blood Cells % 0.0 Neutrophils # 10.8 H Lymphocytes # 1.0 Monocytes # 1.2 H Eosinophils # 0.0 Basophils # 0.0 Nucleated Red Blood Cells # 0.0 Sodium Level 144 Potassium Level 4.1 Chloride Level 110 Carbon Dioxide Level 26 Anion Gap 12 Blood Urea Nitrogen 15 Creatinine 0.80 Glucose Level 150 Calcium Level 8.6 Magnesium Level 2.0 Test 09/05/17 07:54 09/05/17 09:10 09/05/17 10:13 Bedside Glucose 158 151 155 Medications Medications Current Medications Lorazepam (Ativan) 0.5 mg Q8H PRN PO ANXIETY; Start 08/29/17 at 02:00 Ondansetron HCl (Zofran Inj) 4 mg Q6H PRN IV NAUSEA AND/OR VOMITING; Start at 02:00 Nitroglycerin (Nitroglycerin (Sl Tab) 0.4 Mg) 1 tab Q5M PRN SL CHEST PAIN Last administered on 08/29/17 18:49; Admin Dose 1 TAB; Start 08/29/17 at 02:00 Acetaminophen (Tylenol Tab) 650 mg Q6H PRN PO PAIN LEVEL 1-3 OR FEVER Last administered on 09/05/17 05:29; Admin Dose 650 MG; Start 08/29/17 at 02:00 Diagnostic Test (Pha) (Accu-Chek) 1 ea 02 XX Last administered on 09/05/17 01: 53; Admin Dose 1 EA; Start 08/30/17 at 02:00 Miscellaneous Information 1 ea NOTE XX ; Start 08/29/17 at 10:30 Glucose (Glutose) 15 gm Q15M PRN PO DECREASED GLUCOSE; Start 08/29/17 at 10:30 Glucose (Glutose) 22.5 gm Q15M PRN PO DECREASED GLUCOSE; Start 08/29/17 at 10: 30 Dextrose (D50w Syringe) 25 ml Q15M PRN IV DECREASED GLUCOSE; Start 08/29/17 at 10:30 Dextrose (D50w Syringe) 50 ml Q15M PRN IV DECREASED GLUCOSE; Start 08/29/17 at 10:30 Glucagon (Glucagen) 1 mg Q15M PRN IM DECREASED GLUCOSE; Start 08/29/17 at 10: 30 Glucose (Glutose) 15 gm Q15M PRN BUCCAL DECREASED GLUCOSE; Start 08/29/17 at 10:30 Valsartan (Diovan) 160 mg BID PO Last administered on 09/05/17 08:37; Admin Dose 160 MG; Start 08/30/17 at 21:00 Furosemide (Lasix) 40 mg DAILY PO Last administered on 09/05/17 08:37; Admin Dose 40 MG; Start 08/31/17 at 09:00 Morphine Sulfate (morphine) 2 mg Q2H PRN IV FOR NON CARDIAC PAIN (4-10) Last administered on 09/05/17 11:04; Admin Dose 2 MG; Start 08/31/17 at 10:00 Isosorbide Mononitrate (Imdur) 30 mg DAILY PO Last administered on 09/05/17 08 :36; Admin Dose 30 MG; Start 08/31/17 at 15:30 Atorvastatin Calcium (Lipitor) 80 mg DAILY@21 PO Last administered on 21:27; Admin Dose 80 MG; Start 09/01/17 at 21:00 Aspirin (Aspirin) 81 mg DAILY PO Last administered on 09/05/17 08:37; Admin Dose 81 MG; Start 09/02/17 at 09:00 Carvedilol 25 mg 25 mg BID PO Last administered on 09/05/17 08:38; Admin Dose 25 MG; Start 09/03/17 at 09:00 Propofol (Diprivan) 100 ml @ 2.826 mls/ hr Q12H IV Last administered on 20:01; Admin Dose 2.826 MLS/HR; Start 09/04/17 at 19:30 Diagnostic Test (Pha) (Accu-Chek) 1 ea Q1H XX Last administered on 09/05/17 11 :10; Admin Dose 1 EA; Start 09/04/17 at 20:00 Dextrose (D50w Syringe) 25 ml Q15M PRN IV Till BS 80 mg/dL or above x2; Start 09/04/17 at 20:00 Dextrose 50 ml 50 ml Q15M PRN IV Till BS 80 mg/dL or above x2; Start 09/04/17 at 20:00 Potassium Chloride 40 meq/ Dextrose/Sodium Chloride 1,020 ml @ 60 mls/hr Q17H IV Last administered on 09/04/17 20:00; Admin Dose 60 MLS/HR; Start 09/04/17 at 20:00 Cefazolin Sodium 50 ml @ 100 mls/hr Q8 IVPB Last administered on 09/05/17 05: 31; Admin Dose 100 MLS/HR; Start 09/04/17 at 22:00; Stop 09/05/17 at 14:29 Milrinone Lactate (Primacor) 100 ml @ 10.598 mls/ hr TITRATE IV Last administered on 09/04/17 19:00; Admin Dose 10.598 MLS/HR; Start 09/04/17 at 20: 30 Hydralazine HCl (Apresoline) 10 mg Q4H PRN IV SBP MORE THEN 160; Start at 06:30 KAYCEE SWARTZ MD Sep 05, 2017 11:23
[2017-09-05] MEDS: POTASSIUM CHLORIDE 40 MEQ in DEXTROSE 5%-0.225% NACL 1,000 ML IV SCH (13:05)
--- NOTE | 2017-09-05 13:52 | PN ---
Date/Time of Note Date/Time of Note DATE: 09/05/17 TIME: 13:44 Assessment/Plan VTE Prophylaxis VTE Prophylaxis Intervention: SCD's Lines/Catheters IV Catheter Type (from Nrs): A Line Urinary Cath still in place: Yes Reason Cath still needed: urinary retention Assessment/Plan Assessment/Plan 1. ACS 2. Multivessel CAD 3. ISCHEMIC CARDIOMYOPATHY 4. DM 5. HTN 6. CHF: due to systolic heart failure and chronic and stable now Recs: continue cv meds chest tube to be dc/d once drainage decreasese surgical care sw family Subjective 24 Hr Interval Summary Free Text/Dictation The patient doing well post cabg Exam/Review of Systems Vital Signs Vitals Vital Signs Date Time Temp Pulse Resp B/P Pulse Ox O2 Delivery O2 Flow Rate FiO2 09/05/17 13:00 99.7 84 31 108/54 94 09/05/17 08:00 Nasal Cannula 4.0 09/04/17 22:23 40 Intake and Output 09/04/17 09/04/17 09/05/17 15:00 23:00 07:00 Intake Total 2261.108 ml 607.984 ml Output Total 2732 ml 882 ml Balance -470.892 ml -274.016 ml Results Result Diagram: 09/05/17 0600 09/05/17 0600 Results 24 hrs Laboratory Tests Test 09/04/17 19:08 09/04/17 19:30 09/04/17 19:45 09/04/17 20:00 Bedside Glucose 110 White Blood Count 12.6 #H Red Blood Count 3.46 #L Hemoglobin 10.8 #L Hematocrit 31.3 #L Mean Corpuscular Volume 90.5 Mean Corpuscular Hemoglobin 31.2 Mean Corpuscular Hemoglobin Concent 34.5 Red Cell Distribution Width 12.8 Platelet Count 133 #L Mean Platelet Volume 11.6 H Segmented Neutrophils % (Manual) 70 Band Neutrophils % (Manual) 5 H Lymphocytes % (Manual) 23 Monocytes % (Manual) 2 Nucleated Red Blood Cells % 0.0 Neutrophils # (Manual) 8.9 H Band Neutrophils # 0.6 Absolute Lymphocytes (Manual) 2.8 Lymphocytes # 2.9 Monocytes # 0.3 Absolute Monocytes (Manual) 0.2 L Activated Partial Thromboplast Time 32.0 Sodium Level 144 Potassium Level 3.7 Chloride Level 109 Carbon Dioxide Level 27 Anion Gap 12 Blood Urea Nitrogen 13 Creatinine 0.86 Glucose Level 107 # Calcium Level 8.2 L Magnesium Level 2.3 Blood Gas Specimen Source Blood arterial BLMV Arterial Blood Date Drawn 09/04/2017 7:45:39 PM 09/04/2017 8:00:50 PM Arterial Blood pH (Temp corrected) 7.394 Arterial Blood pCO2 (Temp correct) 40.5 Arterial Blood pO2 (Temp corrected) 145.0 H Arterial Blood HCO3 24.2 Arterial Blood Base Excess -0.6 Arterial Blood Oxygen Saturation 98.4 H Jean Test N/A N/A Arterial Blood Gas Puncture Site A-Line VENOUS LINE Arterial Blood Carboxyhemoglobin 0.3 Arterial Blood Methemoglobin 0.3 Venous Blood pH 7.394 Venous Blood pCO2 (Temp Corrected) 40.5 Venous Blood pO2 (Temp Corrected) 145.0 H 49.6 H Venous Blood HCO3 24.2 Venous Blood Oxygen Saturation 98.4 H 83.5 H Venous Blood Base Excess -0.6 Venous Blood Total Hemoglobin 12.1 10.8 Venous Blood Oxyhemoglobin 97.8 83.1 Venous Blood Methemoglobin 0.3 0.2 Blood Gas A-a O2 Differential 527.5 Oxyhemoglobin Percent 97.8 Carboxyhemoglobin 0.3 0.3 Total Hemoglobin 12.1 Blood Gas Temperature 37.0 37.0 Blood Gas Respiration Rate 14.0 14.0 Blood Gas Actual Respiration Rate 16 16 Blood Gas Modality VENT - AC VENT - AC FiO2 100.0 100.0 Blood Gas Tidal Volume 550.0 550.0 Blood Gas Low PEEP Setting 5.0 5.0 Blood Gas Notified Whom CICI BOLANOS Blood Gas Notified Time 09/04/2017 8:00:50 PM 09/04/2017 10:34:43 PM Test 09/04/17 20:06 09/04/17 21:16 09/04/17 22:06 09/04/17 22:46 Bedside Glucose 122 169 178 Blood Gas Specimen Source Blood arterial Arterial Blood Date Drawn 09/04/2017 11:00:18 PM Arterial Blood pH (Temp corrected) 7.440 Arterial Blood pCO2 (Temp correct) 36.6 Arterial Blood pO2 (Temp corrected) 72.2 L Arterial Blood HCO3 24.3 Arterial Blood Base Excess 0.4 Arterial Blood Oxygen Saturation 94.2 L Jean Test N/A Arterial Blood Gas Puncture Site A-Line Arterial Blood Carboxyhemoglobin 0.3 Arterial Blood Methemoglobin 0.2 Blood Gas A-a O2 Differential 170.9 H Oxyhemoglobin Percent 93.7 Total Hemoglobin 12.2 Blood Gas Temperature 37.0 Blood Gas Actual Respiration Rate 24 Blood Gas Modality VENT - CPAP FiO2 40.0 Blood Gas Low PEEP Setting 5.0 Blood Gas Pressure Support 10 Blood Gas Notified Whom CICI Blood Gas Notified Time 09/04/2017 11:11:41 PM Test 09/04/17 23:16 09/05/17 00:03 09/05/17 01:10 09/05/17 01:48 Bedside Glucose 161 171 164 161 Test 09/05/17 01:50 09/05/17 03:03 09/05/17 04:03 09/05/17 04:54 White Blood Count 12.1 H Red Blood Count 3.57 L Hemoglobin 11.2 L Hematocrit 32.6 L Mean Corpuscular Volume 91.3 Mean Corpuscular Hemoglobin 31.4 Mean Corpuscular Hemoglobin Concent 34.4 Red Cell Distribution Width 13.2 Platelet Count 154 Mean Platelet Volume 12.7 H Neutrophils % 79.1 H Lymphocytes % 9.8 L Monocytes % 10.1 Eosinophils % 0.3 Basophils % 0.2 Nucleated Red Blood Cells % 0.0 Neutrophils # 9.6 H Lymphocytes # 1.2 Monocytes # 1.2 H Eosinophils # 0.0 Basophils # 0.0 Nucleated Red Blood Cells # 0.0 Activated Partial Thromboplast Time 38.3 H Sodium Level 145 H Potassium Level 3.9 Chloride Level 111 H Carbon Dioxide Level 28 Anion Gap 10 Blood Urea Nitrogen 15 Creatinine 0.82 Glucose Level 155 Calcium Level 8.8 Magnesium Level 2.0 Bedside Glucose 165 157 173 Test 09/05/17 05:42 09/05/17 06:00 09/05/17 06:59 09/05/17 07:54 Bedside Glucose 155 140 158 White Blood Count 13.1 H Red Blood Count 3.79 L Hemoglobin 11.6 L Hematocrit 34.9 L Mean Corpuscular Volume 92.1 Mean Corpuscular Hemoglobin 30.6 Mean Corpuscular Hemoglobin Concent 33.2 Red Cell Distribution Width 13.5 Platelet Count 168 Mean Platelet Volume 12.5 H Neutrophils % 82.5 H Lymphocytes % 7.8 L Monocytes % 9.1 Eosinophils % 0.1 Basophils % 0.2 Nucleated Red Blood Cells % 0.0 Neutrophils # 10.8 H Lymphocytes # 1.0 Monocytes # 1.2 H Eosinophils # 0.0 Basophils # 0.0 Nucleated Red Blood Cells # 0.0 Sodium Level 144 Potassium Level 4.1 Chloride Level 110 Carbon Dioxide Level 26 Anion Gap 12 Blood Urea Nitrogen 15 Creatinine 0.80 Glucose Level 150 Calcium Level 8.6 Magnesium Level 2.0 Test 09/05/17 09:10 09/05/17 10:13 09/05/17 11:02 09/05/17 12:10 Bedside Glucose 151 155 140 161 Test 09/05/17 13:02 Bedside Glucose 163 Medications Medications Current Medications Lorazepam (Ativan) 0.5 mg Q8H PRN PO ANXIETY; Start 08/29/17 at 02:00 Ondansetron HCl (Zofran Inj) 4 mg Q6H PRN IV NAUSEA AND/OR VOMITING; Start at 02:00 Nitroglycerin (Nitroglycerin (Sl Tab) 0.4 Mg) 1 tab Q5M PRN SL CHEST PAIN Last administered on 08/29/17 18:49; Admin Dose 1 TAB; Start 08/29/17 at 02:00 Acetaminophen (Tylenol Tab) 650 mg Q6H PRN PO PAIN LEVEL 1-3 OR FEVER Last administered on 09/05/17 05:29; Admin Dose 650 MG; Start 08/29/17 at 02:00 Diagnostic Test (Pha) (Accu-Chek) 1 ea 02 XX Last administered on 09/05/17 01: 53; Admin Dose 1 EA; Start 08/30/17 at 02:00 Miscellaneous Information 1 ea NOTE XX ; Start 08/29/17 at 10:30 Glucose (Glutose) 15 gm Q15M PRN PO DECREASED GLUCOSE; Start 08/29/17 at 10:30 Glucose (Glutose) 22.5 gm Q15M PRN PO DECREASED GLUCOSE; Start 08/29/17 at 10: 30 Dextrose (D50w Syringe) 25 ml Q15M PRN IV DECREASED GLUCOSE; Start 08/29/17 at 10:30 Dextrose (D50w Syringe) 50 ml Q15M PRN IV DECREASED GLUCOSE; Start 08/29/17 at 10:30 Glucagon (Glucagen) 1 mg Q15M PRN IM DECREASED GLUCOSE; Start 08/29/17 at 10: 30 Glucose (Glutose) 15 gm Q15M PRN BUCCAL DECREASED GLUCOSE; Start 08/29/17 at 10:30 Valsartan (Diovan) 160 mg BID PO Last administered on 09/05/17 08:37; Admin Dose 160 MG; Start 08/30/17 at 21:00 Furosemide (Lasix) 40 mg DAILY PO Last administered on 09/05/17 08:37; Admin Dose 40 MG; Start 08/31/17 at 09:00 Morphine Sulfate (morphine) 2 mg Q2H PRN IV FOR NON CARDIAC PAIN (4-10) Last administered on 09/05/17 13:08; Admin Dose 2 MG; Start 08/31/17 at 10:00 Isosorbide Mononitrate (Imdur) 30 mg DAILY PO Last administered on 09/05/17 08 :36; Admin Dose 30 MG; Start 08/31/17 at 15:30 Atorvastatin Calcium (Lipitor) 80 mg DAILY@21 PO Last administered on 21:27; Admin Dose 80 MG; Start 09/01/17 at 21:00 Aspirin (Aspirin) 81 mg DAILY PO Last administered on 09/05/17 08:37; Admin Dose 81 MG; Start 09/02/17 at 09:00 Carvedilol 25 mg 25 mg BID PO Last administered on 09/05/17 08:38; Admin Dose 25 MG; Start 09/03/17 at 09:00 Propofol (Diprivan) 100 ml @ 2.826 mls/ hr Q12H IV Last administered on 20:01; Admin Dose 2.826 MLS/HR; Start 09/04/17 at 19:30 Diagnostic Test (Pha) (Accu-Chek) 1 ea Q1H XX Last administered on 09/05/17 12 :59; Admin Dose 1 EA; Start 09/04/17 at 20:00 Dextrose (D50w Syringe) 25 ml Q15M PRN IV Till BS 80 mg/dL or above x2; Start 09/04/17 at 20:00 Dextrose 50 ml 50 ml Q15M PRN IV Till BS 80 mg/dL or above x2; Start 09/04/17 at 20:00 Potassium Chloride 40 meq/ Dextrose/Sodium Chloride 1,020 ml @ 60 mls/hr Q17H IV Last administered on 09/05/17 13:05; Admin Dose 60 MLS/HR; Start 09/04/17 at 20:00 Cefazolin Sodium 50 ml @ 100 mls/hr Q8 IVPB Last administered on 09/05/17 05: 31; Admin Dose 100 MLS/HR; Start 09/04/17 at 22:00; Stop 09/05/17 at 14:29 Milrinone Lactate (Primacor) 100 ml @ 10.598 mls/ hr TITRATE IV Last administered on 09/04/17 19:00; Admin Dose 10.598 MLS/HR; Start 09/04/17 at 20: 30 Hydralazine HCl (Apresoline) 10 mg Q4H PRN IV SBP MORE THEN 160; Start at 06:30 MICHAEL SMALLS MD Sep 05, 2017 13:52
--- NOTE | 2017-09-05 14:55 | PN ---
Date/Time of Note Date/Time of Note DATE: 09/05/17 TIME: 14:54 Assessment/Plan Lines/Catheters IV Catheter Type (from Nrsg): A Line Carbajal in Place (from Nrsg): Yes Assessment/Plan Chief Complaint/Hosp Course Coronary artery disease Cardiomyopathy with ejection fraction 40% SP CABG will continue CT sxn ambulate pulm toilet Problems: Subjective 24 Hr Interval Summary Constitutional: improved Pain Control: mild Exam/Review of Systems Vital Signs Vitals Vital Signs Date Time Temp Pulse Resp B/P Pulse Ox O2 Delivery O2 Flow Rate FiO2 09/05/17 14:15 86 29 111/55 93 09/05/17 14:00 99.9 09/05/17 08:00 Nasal Cannula 4.0 09/04/17 22:23 40 Intake and Output 09/04/17 09/04/17 09/05/17 15:00 23:00 07:00 Intake Total 2261.108 ml 607.984 ml Output Total 2732 ml 882 ml Balance -470.892 ml -274.016 ml Exam Neck: non-tender, supple Respiratory: clear to auscultation, normal air movement Cardiovascular: nl pulses, regular rate and rhythm Gastrointestinal: nl liver, spleen, non-tender, soft Results Result Diagram: 09/05/17 0600 09/05/17 06 MARIE OQUENDO MD Sep 05, 2017 14:55
[2017-09-05] MEDS: INSULIN GLARGINE [LANtus] 3 ML PEN SC SCH (18:09)
[2017-09-05] MEDS: ATORVASTATIN 80 MG TAB PO SCH (20:06)
[2017-09-05] MEDS: INSULIN ASPART [NOVOLOG] 3 ML PEN SC SCH (20:07)
[2017-09-06] VITALS (35 sets, daily range): BP systolic 103–158; BP diastolic 61–82; PULSE 80–92; RESP 14–38
--- NOTE | 2017-09-06 00:50 | PN ---
Date/Time of Note Date/Time of Note DATE: 09/06/17 TIME: 00:50 Assessment/Plan Lines/Catheters IV Catheter Type (from Nrsg): Peripheral IV Carbajal in Place (from Nrsg): Yes Assessment/Plan Chief Complaint/Hosp Course Coronary artery disease Cardiomyopathy with ejection fraction 40% SP CABG will continue CT sxn one more day ambulate pulm toilet Problems: Subjective 24 Hr Interval Summary Constitutional: improved Pain Control: mild Exam/Review of Systems Vital Signs Vitals Vital Signs Date Time Temp Pulse Resp B/P Pulse Ox O2 Delivery O2 Flow Rate FiO2 09/05/17 23:30 89 32 115/62 89 Nasal Cannula 2.0 09/05/17 16:00 99.3 09/04/17 22:23 40 Intake and Output 09/05/17 09/05/17 09/06/17 15:00 23:00 07:00 Intake Total 910 ml 256 ml Output Total 455 ml 110 ml Balance 455 ml 146 ml Exam ENMT: mucosa pink and moist, nl external ears & nose, nl lips & teeth, nl nasal mucosa & septum Respiratory: clear to auscultation, normal air movement Gastrointestinal: nl liver, spleen, non-tender, soft Results Result Diagram: 09/05/17 0600 09/05/17 0600 MALEMARIE ROSE MD Sep 06, 2017 00:50
[2017-09-06] MEDS: morphine 2 MG INJ IV PRN ×3 (01:11→10:19)
[2017-09-06] MEDS ORDERED: ACCU-CHEK XX SCH ×2 (02:00)
[2017-09-06 05:11] LABS: BASOPHILS % 0.2 % (0.0-2.0); EOSINOPHILS % 0.1 % (0.0-7.0); HEMATOCRIT 29.8 % (42.0-52.0); HEMOGLOBIN 9.8 g/dl (14.0-18.0); LYMPHOCYTES # 1.7 10^3/ul (0.8-2.9); MEAN CORPUSCULAR HEMOGLOBIN 30.5 pg (29.0-33.0); MEAN CORPUSCULAR HGB CONC 32.9 g/dl (32.0-37.0); MEAN CORPUSCULAR VOLUME 92.8 fl (82.0-101.0); MEAN PLATELET VOLUME 12.6 fl (7.4-10.4); MONOCYTE # 1.5 10^3/ul (0.3-0.9); NEUTROPHIL # 8.9 10^3/ul (1.6-7.5); NEUTROPHILS % 73.1 % (39.0-77.0); PLATELET COUNT 128 10^3/UL (140-415); RED BLOOD COUNT 3.21 10^6/ul (4.70-6.10); RED CELL DISTRIBUTION WIDTH 13.5 % (11.5-14.5); WHITE BLOOD COUNT 12.2 10^3/ul (4.8-10.8)
[2017-09-06 05:38] LABS: CALCIUM 8.4 mg/dl (8.4-10.2); CREATININE 0.89 mg/dl (0.61-1.24); MAGNESIUM 1.8 mg/dl (1.7-2.5); POTASSIUM 4.1 mmol/L (3.5-5.1)
[2017-09-06] MEDS: POTASSIUM CHLORIDE 40 MEQ in DEXTROSE 5%-0.225% NACL 1,000 ML IV SCH (06:27)
[2017-09-06] MEDS: INSULIN GLARGINE [LANtus] 3 ML PEN SC SCH (08:03)
[2017-09-06] MEDS: INSULIN ASPART [NOVOLOG] 3 ML PEN SC SCH ×5 (08:04→20:10)
[2017-09-06] MEDS: ASPIRIN 81 MG TAB PO SCH (08:06)
[2017-09-06] MEDS: FUROSEMIDE 40 MG TAB PO SCH (08:06)
[2017-09-06] MEDS: VALSARTAN 160 MG TAB PO SCH ×2 (08:06→20:08)
[2017-09-06] MEDS: ISOSORBIDE MONONITRATE(SR)30 MG TAB PO SCH (08:06)
[2017-09-06] MEDS ORDERED: MAGNESIUM SULFATE 2 GM/50 ML 50 ML IVPB ONE (09:00)
--- NOTE | 2017-09-06 12:14 | PN ---
Date/Time of Note Date/Time of Note DATE: 09/06/17 TIME: 12:09 Assessment/Plan VTE Prophylaxis VTE Prophylaxis Intervention: SCD's Lines/Catheters IV Catheter Type (from Nrs): Peripheral IV Urinary Cath still in place: No Assessment/Plan Assessment/Plan 62 yo M with known CAD, chronic systolic HF admitted for chest pain. Cardiac cath 10.30 notable for multivessel CAD, sp CABG 11.3. PLAN cont asa, BP control, lipid control. plavix as per cards DM regimen changed back to SubQ insulin of note, pt on dextrose containing solution. defer dc'ing to CT surgery transfer out of unit decision deferred to surgery Chest tube as per CT surgery cc time 30 minutes Subjective 24 Hr Interval Summary Free Text/Dictation Temps improved. resting comfortably, no events Exam/Review of Systems Vital Signs Vitals Vital Signs Date Time Temp Pulse Resp B/P Pulse Ox O2 Delivery O2 Flow Rate FiO2 09/06/17 11:00 86 37 103/61 94 Nasal Cannula 2.0 09/06/17 08:00 98.6 09/04/17 22:23 40 Intake and Output 09/05/17 09/05/17 09/06/17 15:00 23:00 07:00 Intake Total 910 ml 646 ml 840 ml Output Total 455 ml 110 ml 1150 ml Balance 455 ml 536 ml -310 ml Exam nad chest tube in place no mrg lungs clear abd soft no rashes Results Result Diagram: 09/06/17 0429 09/06/17 0429 Results 24 hrs Laboratory Tests Test 09/05/17 12:10 09/05/17 13:02 09/05/17 14:08 09/05/17 15:12 Bedside Glucose 161 163 161 161 Test 09/05/17 16:08 09/05/17 17:10 09/05/17 18:03 09/05/17 18:47 Bedside Glucose 168 175 169 148 Test 09/05/17 19:56 09/06/17 04:29 09/06/17 07:50 09/06/17 11:36 Bedside Glucose 135 287 H 279 H White Blood Count 12.2 H Red Blood Count 3.21 L Hemoglobin 9.8 L Hematocrit 29.8 L Mean Corpuscular Volume 92.8 Mean Corpuscular Hemoglobin 30.5 Mean Corpuscular Hemoglobin Concent 32.9 Red Cell Distribution Width 13.5 Platelet Count 128 #L Mean Platelet Volume 12.6 H Neutrophils % 73.1 Lymphocytes % 14.0 L Monocytes % 12.0 H Eosinophils % 0.1 Basophils % 0.2 Nucleated Red Blood Cells % 0.0 Neutrophils # 8.9 H Lymphocytes # 1.7 Monocytes # 1.5 H Eosinophils # 0.0 Basophils # 0.0 Nucleated Red Blood Cells # 0.0 Sodium Level 136 Potassium Level 4.1 Chloride Level 103 Carbon Dioxide Level 26 Anion Gap 11 Blood Urea Nitrogen 19 Creatinine 0.89 Glucose Level 231 H Calcium Level 8.4 Magnesium Level 1.8 Medications Medications Current Medications Lorazepam (Ativan) 0.5 mg Q8H PRN PO ANXIETY; Start 08/29/17 at 02:00 Ondansetron HCl (Zofran Inj) 4 mg Q6H PRN IV NAUSEA AND/OR VOMITING; Start at 02:00 Nitroglycerin (Nitroglycerin (Sl Tab) 0.4 Mg) 1 tab Q5M PRN SL CHEST PAIN Last administered on 08/29/17 18:49; Admin Dose 1 TAB; Start 08/29/17 at 02:00 Acetaminophen (Tylenol Tab) 650 mg Q6H PRN PO PAIN LEVEL 1-3 OR FEVER Last administered on 09/05/17 05:29; Admin Dose 650 MG; Start 08/29/17 at 02:00 Miscellaneous Information 1 ea NOTE XX ; Start 08/29/17 at 10:30 Glucose (Glutose) 15 gm Q15M PRN PO DECREASED GLUCOSE; Start 08/29/17 at 10:30 Glucose (Glutose) 22.5 gm Q15M PRN PO DECREASED GLUCOSE; Start 08/29/17 at 10: 30 Dextrose (D50w Syringe) 25 ml Q15M PRN IV DECREASED GLUCOSE; Start 08/29/17 at 10:30 Dextrose (D50w Syringe) 50 ml Q15M PRN IV DECREASED GLUCOSE; Start 08/29/17 at 10:30 Glucagon (Glucagen) 1 mg Q15M PRN IM DECREASED GLUCOSE; Start 08/29/17 at 10: 30 Glucose (Glutose) 15 gm Q15M PRN BUCCAL DECREASED GLUCOSE; Start 08/29/17 at 10:30 Valsartan (Diovan) 160 mg BID PO Last administered on 09/06/17 08:06; Admin Dose 160 MG; Start 08/30/17 at 21:00 Furosemide (Lasix) 40 mg DAILY PO Last administered on 09/06/17 08:06; Admin Dose 40 MG; Start 08/31/17 at 09:00 Morphine Sulfate (morphine) 2 mg Q2H PRN IV FOR NON CARDIAC PAIN (4-10) Last administered on 09/06/17 10:19; Admin Dose 2 MG; Start 08/31/17 at 10:00 Isosorbide Mononitrate (Imdur) 30 mg DAILY PO Last administered on 09/06/17 08 :06; Admin Dose 30 MG; Start 08/31/17 at 15:30 Atorvastatin Calcium (Lipitor) 80 mg DAILY@21 PO Last administered on 20:06; Admin Dose 80 MG; Start 09/01/17 at 21:00 Aspirin (Aspirin) 81 mg DAILY PO Last administered on 09/06/17 08:06; Admin Dose 81 MG; Start 09/02/17 at 09:00 Carvedilol (Coreg) 25 mg BID PO Last administered on 09/06/17 08:06; Admin Dose 25 MG; Start 09/03/17 at 09:00 Dextrose (D50w Syringe) 25 ml Q15M PRN IV Till BS 80 mg/dL or above x2; Start 09/04/17 at 20:00 Dextrose 50 ml 50 ml Q15M PRN IV Till BS 80 mg/dL or above x2; Start 09/04/17 at 20:00 Potassium Chloride/Dextrose/ Sodium Chloride (KCl/D5-1/4ns) 1,020 ml @ 30 mls/ hr Q24H IV Last administered on 09/06/17 06:27; Admin Dose 60 MLS/HR; Start 09/04/17 at 20:00 Hydralazine HCl (Apresoline) 10 mg Q4H PRN IV SBP MORE THEN 160; Start at 06:30 Insulin Glargine (Lantus) 24 unit DAILY@08 SC Last administered on 09/06/17 08 :03; Admin Dose 24 UNIT; Start 09/05/17 at 17:30 Diagnostic Test (Pha) (Accu-Chek) 1 ea 02 XX ; Start 09/06/17 at 02:00 Oxycodone/ Acetaminophen (Endocet ()) 1 tab Q4H PRN PO PAIN; Start 09/06 at 09:00 KAYCEE SWARTZ MD Sep 06, 2017 12:14
--- NOTE | 2017-09-06 12:52 | CONS ---
Date/Time of Note Date/Time of Note DATE: 09/06/17 TIME: 12:51 Assessment/Plan Assessment/Plan Additional Assessment/Plan 1. ACS 2. Multivessel CAD 3. ISCHEMIC CARDIOMYOPATHY 4. DM 5. HTN 6. CHF: due to systolic heart failure and chronic and stable now Recs: continue cv meds chest tube to be dc/d per CT surgery instructions surgical care sw family Consultation Date/Type/Reason Admit Date/Time Aug 28, 2017 at 23:44 Initial Consult Date 08/31/17 Type of Consultation: Card consult 24 HR Interval Summary Free Text/Dictation in chair comfortable Exam/Review of Systems Vital Signs Vitals Vital Signs Date Time Temp Pulse Resp B/P Pulse Ox O2 Delivery O2 Flow Rate FiO2 09/06/17 11:00 86 37 103/61 94 Nasal Cannula 2.0 09/06/17 08:00 98.6 09/04/17 22:23 40 Intake and Output 09/05/17 09/05/17 09/06/17 15:00 23:00 07:00 Intake Total 910 ml 646 ml 840 ml Output Total 455 ml 110 ml 1150 ml Balance 455 ml 536 ml -310 ml Results Result Diagram: 09/06/17 0429 09/06/17 0429 Results 24 hrs Laboratory Tests Test 09/05/17 13:02 09/05/17 14:08 09/05/17 15:12 09/05/17 16:08 Bedside Glucose 163 161 161 168 Test 09/05/17 17:10 09/05/17 18:03 09/05/17 18:47 09/05/17 19:56 Bedside Glucose 175 169 148 135 Test 09/06/17 04:29 09/06/17 07:50 09/06/17 11:36 White Blood Count 12.2 H Red Blood Count 3.21 L Hemoglobin 9.8 L Hematocrit 29.8 L Mean Corpuscular Volume 92.8 Mean Corpuscular Hemoglobin 30.5 Mean Corpuscular Hemoglobin Concent 32.9 Red Cell Distribution Width 13.5 Platelet Count 128 #L Mean Platelet Volume 12.6 H Neutrophils % 73.1 Lymphocytes % 14.0 L Monocytes % 12.0 H Eosinophils % 0.1 Basophils % 0.2 Nucleated Red Blood Cells % 0.0 Neutrophils # 8.9 H Lymphocytes # 1.7 Monocytes # 1.5 H Eosinophils # 0.0 Basophils # 0.0 Nucleated Red Blood Cells # 0.0 Sodium Level 136 Potassium Level 4.1 Chloride Level 103 Carbon Dioxide Level 26 Anion Gap 11 Blood Urea Nitrogen 19 Creatinine 0.89 Glucose Level 231 H Calcium Level 8.4 Magnesium Level 1.8 Bedside Glucose 287 H 279 H Medications Medications Current Medications Lorazepam (Ativan) 0.5 mg Q8H PRN PO ANXIETY; Start 08/29/17 at 02:00 Ondansetron HCl (Zofran Inj) 4 mg Q6H PRN IV NAUSEA AND/OR VOMITING; Start at 02:00 Nitroglycerin (Nitroglycerin (Sl Tab) 0.4 Mg) 1 tab Q5M PRN SL CHEST PAIN Last administered on 08/29/17 18:49; Admin Dose 1 TAB; Start 08/29/17 at 02:00 Acetaminophen (Tylenol Tab) 650 mg Q6H PRN PO PAIN LEVEL 1-3 OR FEVER Last administered on 09/05/17 05:29; Admin Dose 650 MG; Start 08/29/17 at 02:00 Miscellaneous Information 1 ea NOTE XX ; Start 08/29/17 at 10:30 Glucose (Glutose) 15 gm Q15M PRN PO DECREASED GLUCOSE; Start 08/29/17 at 10:30 Glucose (Glutose) 22.5 gm Q15M PRN PO DECREASED GLUCOSE; Start 08/29/17 at 10: 30 Dextrose (D50w Syringe) 25 ml Q15M PRN IV DECREASED GLUCOSE; Start 08/29/17 at 10:30 Dextrose (D50w Syringe) 50 ml Q15M PRN IV DECREASED GLUCOSE; Start 08/29/17 at 10:30 Glucagon (Glucagen) 1 mg Q15M PRN IM DECREASED GLUCOSE; Start 08/29/17 at 10: 30 Glucose (Glutose) 15 gm Q15M PRN BUCCAL DECREASED GLUCOSE; Start 08/29/17 at 10:30 Valsartan (Diovan) 160 mg BID PO Last administered on 09/06/17 08:06; Admin Dose 160 MG; Start 08/30/17 at 21:00 Furosemide (Lasix) 40 mg DAILY PO Last administered on 09/06/17 08:06; Admin Dose 40 MG; Start 08/31/17 at 09:00 Morphine Sulfate (morphine) 2 mg Q2H PRN IV FOR NON CARDIAC PAIN (4-10) Last administered on 09/06/17 10:19; Admin Dose 2 MG; Start 08/31/17 at 10:00 Isosorbide Mononitrate (Imdur) 30 mg DAILY PO Last administered on 09/06/17 08 :06; Admin Dose 30 MG; Start 08/31/17 at 15:30 Atorvastatin Calcium (Lipitor) 80 mg DAILY@21 PO Last administered on 20:06; Admin Dose 80 MG; Start 09/01/17 at 21:00 Aspirin (Aspirin) 81 mg DAILY PO Last administered on 09/06/17 08:06; Admin Dose 81 MG; Start 09/02/17 at 09:00 Carvedilol (Coreg) 25 mg BID PO Last administered on 09/06/17 08:06; Admin Dose 25 MG; Start 09/03/17 at 09:00 Dextrose (D50w Syringe) 25 ml Q15M PRN IV Till BS 80 mg/dL or above x2; Start 09/04/17 at 20:00 Dextrose 50 ml 50 ml Q15M PRN IV Till BS 80 mg/dL or above x2; Start 09/04/17 at 20:00 Potassium Chloride/Dextrose/ Sodium Chloride (KCl/D5-1/4ns) 1,020 ml @ 30 mls/ hr Q24H IV Last administered on 09/06/17 06:27; Admin Dose 60 MLS/HR; Start 09/04/17 at 20:00 Hydralazine HCl (Apresoline) 10 mg Q4H PRN IV SBP MORE THEN 160; Start at 06:30 Insulin Glargine (Lantus) 24 unit DAILY@08 SC Last administered on 09/06/17 08 :03; Admin Dose 24 UNIT; Start 09/05/17 at 17:30 Diagnostic Test (Pha) (Accu-Chek) 1 ea 02 XX ; Start 09/06/17 at 02:00 Oxycodone/ Acetaminophen (Endocet (10/ 325)) 1 tab Q4H PRN PO PAIN; Start 09/06 at 09:00 SHIELA HYDE MD Sep 06, 2017 12:52
[2017-09-06] MEDS ORDERED: INSULIN ASPART [NOVOLOG] 3 ML PEN SC SCH (17:35)
[2017-09-06] MEDS: OXYCODONE/ACETAMINOPHEN (10/325) TAB PO PRN (18:53)
[2017-09-06] MEDS: ATORVASTATIN 80 MG TAB PO SCH (20:08)
[2017-09-07] VITALS (29 sets, daily range): BP systolic 99–146; BP diastolic 51–82; PULSE 75–88; RESP 20–37
[2017-09-07] MEDS: ACCU-CHEK XX SCH ×2 (02:00)
[2017-09-07 06:29] LABS: BASOPHILS % 0.2 % (0.0-2.0); EOSINOPHILS % 0.3 % (0.0-7.0); HEMATOCRIT 27.9 % (42.0-52.0); HEMOGLOBIN 9.5 g/dl (14.0-18.0); LYMPHOCYTES # 1.8 10^3/ul (0.8-2.9); LYMPHOCYTES % 15.2 % (15.0-51.0); MEAN CORPUSCULAR HEMOGLOBIN 31.7 pg (29.0-33.0); MEAN CORPUSCULAR HGB CONC 34.1 g/dl (32.0-37.0); MEAN PLATELET VOLUME 12.5 fl (7.4-10.4); MONOCYTE # 1.3 10^3/ul (0.3-0.9); MONOCYTES % 11.2 % (0.0-11.0); NEUTROPHIL # 8.4 10^3/ul (1.6-7.5); NEUTROPHILS % 72.5 % (39.0-77.0); PLATELET COUNT 131 10^3/UL (140-415); RED CELL DISTRIBUTION WIDTH 13.2 % (11.5-14.5); WHITE BLOOD COUNT 11.6 10^3/ul (4.8-10.8)
[2017-09-07 06:54] LABS: CALCIUM 8.3 mg/dl (8.4-10.2); CREATININE 0.85 mg/dl (0.61-1.24); MAGNESIUM 1.9 mg/dl (1.7-2.5); POTASSIUM 4.5 mmol/L (3.5-5.1)
[2017-09-07] MEDS ORDERED: INSULIN ASPART [NOVOLOG] 3 ML PEN SC SCH ×2 (07:35→11:30)
--- NOTE | 2017-09-07 07:36 | RADRPT ---
PROCEDURE: XR Chest. CLINICAL INDICATION: Shortness of breath. TECHNIQUE: Single frontal view. COMPARISON: 09/05/2017. FINDINGS: The [place]-Sivan catheter and right internal jugular vein sheath catheter have been removed. The medias tinal drain and left chest tube remain in satisfactory position. There are sternal wires and mediast inal clips. The right lung is clear. There is left basilar atelectasis, slightly worse than seen pre viously. The heart is enlarged. There is no pleural effusion. There is no pneumothorax. IMPRESSION: 1. [place]-Sivan catheter and right IJ catheter removed. 2. Slightly worse appearance of the left lung. 3. No other change from the 09/05/2017 chest radiograph. RPTAT: QQ .Billy Maciel MD, Date Time Electronically viewed and signed by .Billy Maciel MD, on 09/07/2017 07:36 .R/
[2017-09-07] MEDS: OXYCODONE/ACETAMINOPHEN (10/325) TAB PO PRN (08:29)
[2017-09-07] MEDS: INSULIN ASPART [NOVOLOG] 3 ML PEN SC SCH ×7 (08:42→22:00)
[2017-09-07] MEDS: INSULIN GLARGINE [LANtus] 3 ML PEN SC SCH (08:44)
[2017-09-07] MEDS: FUROSEMIDE 40 MG TAB PO SCH (08:48)
[2017-09-07] MEDS: ASPIRIN 81 MG TAB PO SCH (08:48)
[2017-09-07] MEDS: VALSARTAN 160 MG TAB PO SCH ×2 (08:48→21:00)
[2017-09-07] MEDS: ISOSORBIDE MONONITRATE(SR)30 MG TAB PO SCH (08:48)
--- NOTE | 2017-09-07 10:27 | PN ---
Date/Time of Note Date/Time of Note DATE: 09/07/17 TIME: 10:20 Assessment/Plan VTE Prophylaxis VTE Prophylaxis Intervention: SCD's Lines/Catheters IV C[facility]ter Type (from [facility]): Peripheral IV Urinary Cath still in place: No Assessment/Plan Chief Complaint/Hosp Course Assessment/Plan: 62-year-old male with a history of diabetes hypertension CAD status post PCI with stent in 2012 and a CHF with systolic dysfunction with EF of 40%, noncompliance who presented to the emergency department complaining of chest pain, s/p cardiac cath 10.30 notable for multivessel CAD, and sp CABG 11.3. 1. Chest pain/CABG -has ruled out for ACS - 2D echo last month with EF of 40%, again status post bypass surgery postop day #3 -Continue telemetry monitoring, cont asa, BP control, lipid control. plavix as per cards -Chest tube as per CT surgery, likely to be discontinued today 2. Acute on chronic CHF, systolic - BNP equals 880 on admission. -Continue Lasix and current cardiac medications -Monitor urine output 3. History of CAD, s/p PCI with stent in 2012 -Continue cardiac meds -See #1 4. Insulin-dependent diabetes with hyperglycemia -sugars improved since admission, still in the high normal range Continue aspart with meals, will increase dose today, EFREN Rabago Critical care time spent on patient care today equals 50 minutes. Problems: Subjective 24 Hr Interval Summary Free Text/Dictation No acute events overnight, tolerating diet. Chest tube still in place. Exam/Review of Systems Vital Signs Vitals Vital Signs Date Time Temp Pulse Resp B/P Pulse Ox O2 Delivery O2 Flow Rate FiO2 09/07/17 09:00 82 25 128/62 98 Nasal Cannula 4.0 09/07/17 08:00 99.3 09/04/17 22:23 40 Intake and Output 09/06/17 09/06/17 09/07/17 15:00 23:00 07:00 Intake Total 600 ml 500 ml 600 ml Output Total 830 ml 50 ml 560 ml Balance -230 ml 450 ml 40 ml Exam General: Lying in bed, alert, no acute distress HEENT: NC/AT. pupils are equal. round. NECK: s/p R IJ catheter. no stridor. CV: RRR systolic murmur; no gallop or rubs. PULM: no wheezing or rhonchi. chest: s/p sternotomy. s/p chest tube in place GI: SOFT, NT, ND, no rebound or guarding Extremity: trace B/L LE edema. no clubbing. neuro: No focal deficits Psych: calm and pleasant Results Result Diagram: 09/07/17 0550 09/07/17 0550 Results 24 hrs Laboratory Tests Test 09/06/17 11:36 09/06/17 17:34 09/06/17 20:05 09/07/17 05:50 Bedside Glucose 279 H 232 H 176 White Blood Count 11.6 H Red Blood Count 3.00 L Hemoglobin 9.5 L Hematocrit 27.9 L Mean Corpuscular Volume 93.0 Mean Corpuscular Hemoglobin 31.7 Mean Corpuscular Hemoglobin Concent 34.1 Red Cell Distribution Width 13.2 Platelet Count 131 L Mean Platelet Volume 12.5 H Neutrophils % 72.5 Lymphocytes % 15.2 Monocytes % 11.2 H Eosinophils % 0.3 Basophils % 0.2 Nucleated Red Blood Cells % 0.0 Neutrophils # 8.4 H Lymphocytes # 1.8 Monocytes # 1.3 H Eosinophils # 0.0 Basophils # 0.0 Nucleated Red Blood Cells # 0.0 Sodium Level 131 L Potassium Level 4.5 Chloride Level 99 Carbon Dioxide Level 27 Anion Gap 10 Blood Urea Nitrogen 21 H Creatinine 0.85 Glucose Level 193 Calcium Level 8.3 L Magnesium Level 1.9 Test 09/07/17 08:40 Bedside Glucose 207 Medications Medications Current Medications Lorazepam (Ativan) 0.5 mg Q8H PRN PO ANXIETY; Start 08/29/17 at 02:00 Ondansetron HCl (Zofran Inj) 4 mg Q6H PRN IV NAUSEA AND/OR VOMITING; Start at 02:00 Nitroglycerin (Nitroglycerin (Sl Tab) 0.4 Mg) 1 tab Q5M PRN SL CHEST PAIN Last administered on 08/29/17 18:49; Admin Dose 1 TAB; Start 08/29/17 at 02:00 Acetaminophen (Tylenol Tab) 650 mg Q6H PRN PO PAIN LEVEL 1-3 OR FEVER Last administered on 09/05/17 05:29; Admin Dose 650 MG; Start 08/29/17 at 02:00 Miscellaneous Information 1 ea NOTE XX ; Start 08/29/17 at 10:30 Glucose (Glutose) 15 gm Q15M PRN PO DECREASED GLUCOSE; Start 08/29/17 at 10:30 Glucose (Glutose) 22.5 gm Q15M PRN PO DECREASED GLUCOSE; Start 08/29/17 at 10: 30 Dextrose (D50w Syringe) 25 ml Q15M PRN IV DECREASED GLUCOSE; Start 08/29/17 at 10:30 Dextrose (D50w Syringe) 50 ml Q15M PRN IV DECREASED GLUCOSE; Start 08/29/17 at 10:30 Glucagon (Glucagen) 1 mg Q15M PRN IM DECREASED GLUCOSE; Start 08/29/17 at 10: 30 Glucose (Glutose) 15 gm Q15M PRN BUCCAL DECREASED GLUCOSE; Start 08/29/17 at 10:30 Valsartan (Diovan) 160 mg BID PO Last administered on 09/07/17 08:48; Admin Dose 160 MG; Start 08/30/17 at 21:00 Furosemide (Lasix) 40 mg DAILY PO Last administered on 09/07/17 08:48; Admin Dose 40 MG; Start 08/31/17 at 09:00 Morphine Sulfate (morphine) 2 mg Q2H PRN IV FOR NON CARDIAC PAIN (4-10) Last administered on 09/06/17 10:19; Admin Dose 2 MG; Start 08/31/17 at 10:00 Isosorbide Mononitrate (Imdur) 30 mg DAILY PO Last administered on 09/07/17 08 :48; Admin Dose 30 MG; Start 08/31/17 at 15:30 Atorvastatin Calcium (Lipitor) 80 mg DAILY@21 PO Last administered on 20:08; Admin Dose 80 MG; Start 09/01/17 at 21:00 Aspirin (Aspirin) 81 mg DAILY PO Last administered on 09/07/17 08:48; Admin Dose 81 MG; Start 09/02/17 at 09:00 Carvedilol (Coreg) 25 mg BID PO Last administered on 09/07/17 08:48; Admin Dose 25 MG; Start 09/03/17 at 09:00 Hydralazine HCl (Apresoline) 10 mg Q4H PRN IV SBP MORE THEN 160; Start at 06:30 Oxycodone/ Acetaminophen (Endocet (10/ 325)) 1 tab Q4H PRN PO PAIN Last administered on 09/07/17 08:29; Admin Dose 1 TAB; Start 09/06/17 at 09:00 Insulin Glargine (Lantus) 30 unit DAILY@08 SC Last administered on 09/07/17 08 :44; Admin Dose 30 UNIT; Start 09/07/17 at 08:00 Diagnostic Test (Pha) (Accu-Chek) 1 ea 02 XX ; Start 09/07/17 at 02:00 Diagnostic Test (Pha) (Accu-Chek) 1 ea 02 XX ; Start 09/07/17 at 02:00 RAFFAELE TOLENTINO Sep 07, 2017 10:27
[2017-09-07] MEDS ORDERED: MAGNESIUM SULFATE 1 GM/D5W 100 ML IVPB ONE (12:00)
--- NOTE | 2017-09-07 13:51 | CONS ---
Date/Time of Note Date/Time of Note DATE: 09/07/17 TIME: 13:49 Consult Date/Type/Reason Admit Date/Time Aug 28, 2017 at 23:44 Initial Consult Date 08/31/17 Type of Consultation: Card consult Subjective cardiology follow up note: S: d/w staff and Dr Fernandez pt still has 5/10 anterior chest wall pain and tenderness. no PND orthopnea O: General: no acute distress HEENT: NC/AT. pupils are equal. round. NECK: s/p R IJ catheter. no stridor. CV: RRR. systolic murmur; no gallop or rubs. PULM: no wheezing or rhonchi. chest: s/p sternotomy. s/p chest tube. GI: SOFT, NT, ND, no rebound or guarding Extremity: trace B/L LE edema. no clubbing. neuro: awake and alert Ox 3 Psych: calm and pleasant rectal: deferred ECHO EF 40% Cxr REVIEWED. Objective Vital Signs Date Time Temp Pulse Resp B/P Pulse Ox O2 Delivery O2 Flow Rate FiO2 09/07/17 12:00 77 09/07/17 12:00 99.0 24 112/58 96 Nasal Cannula 4.0 09/04/17 22:23 40 Intake and Output 09/06/17 09/06/17 09/07/17 15:00 23:00 07:00 Intake Total 600 ml 500 ml 600 ml Output Total 830 ml 50 ml 560 ml Balance -230 ml 450 ml 40 ml Results/Medications Result Diagram: 09/07/17 0550 09/07/17 0550 Results 24 hrs Laboratory Tests Test 09/06/17 17:34 09/06/17 20:05 09/07/17 05:50 09/07/17 08:40 Bedside Glucose 232 H 176 207 White Blood Count 11.6 H Red Blood Count 3.00 L Hemoglobin 9.5 L Hematocrit 27.9 L Mean Corpuscular Volume 93.0 Mean Corpuscular Hemoglobin 31.7 Mean Corpuscular Hemoglobin Concent 34.1 Red Cell Distribution Width 13.2 Platelet Count 131 L Mean Platelet Volume 12.5 H Neutrophils % 72.5 Lymphocytes % 15.2 Monocytes % 11.2 H Eosinophils % 0.3 Basophils % 0.2 Nucleated Red Blood Cells % 0.0 Neutrophils # 8.4 H Lymphocytes # 1.8 Monocytes # 1.3 H Eosinophils # 0.0 Basophils # 0.0 Nucleated Red Blood Cells # 0.0 Sodium Level 131 L Potassium Level 4.5 Chloride Level 99 Carbon Dioxide Level 27 Anion Gap 10 Blood Urea Nitrogen 21 H Creatinine 0.85 Glucose Level 193 Calcium Level 8.3 L Magnesium Level 1.9 Test 09/07/17 11:56 Bedside Glucose 247 H Medications Current Medications Lorazepam (Ativan) 0.5 mg Q8H PRN PO ANXIETY; Start 08/29/17 at 02:00 Ondansetron HCl (Zofran Inj) 4 mg Q6H PRN IV NAUSEA AND/OR VOMITING; Start at 02:00 Nitroglycerin (Nitroglycerin (Sl Tab) 0.4 Mg) 1 tab Q5M PRN SL CHEST PAIN Last administered on 08/29/17 18:49; Admin Dose 1 TAB; Start 08/29/17 at 02:00 Acetaminophen (Tylenol Tab) 650 mg Q6H PRN PO PAIN LEVEL 1-3 OR FEVER Last administered on 09/05/17 05:29; Admin Dose 650 MG; Start 08/29/17 at 02:00 Miscellaneous Information 1 ea NOTE XX ; Start 08/29/17 at 10:30 Glucose (Glutose) 15 gm Q15M PRN PO DECREASED GLUCOSE; Start 08/29/17 at 10:30 Glucose (Glutose) 22.5 gm Q15M PRN PO DECREASED GLUCOSE; Start 08/29/17 at 10: 30 Dextrose (D50w Syringe) 25 ml Q15M PRN IV DECREASED GLUCOSE; Start 08/29/17 at 10:30 Dextrose (D50w Syringe) 50 ml Q15M PRN IV DECREASED GLUCOSE; Start 08/29/17 at 10:30 Glucagon (Glucagen) 1 mg Q15M PRN IM DECREASED GLUCOSE; Start 08/29/17 at 10: 30 Glucose (Glutose) 15 gm Q15M PRN BUCCAL DECREASED GLUCOSE; Start 08/29/17 at 10:30 Valsartan (Diovan) 160 mg BID PO Last administered on 09/07/17 08:48; Admin Dose 160 MG; Start 08/30/17 at 21:00 Furosemide (Lasix) 40 mg DAILY PO Last administered on 09/07/17 08:48; Admin Dose 40 MG; Start 08/31/17 at 09:00 Morphine Sulfate (morphine) 2 mg Q2H PRN IV FOR NON CARDIAC PAIN (4-10) Last administered on 09/06/17 10:19; Admin Dose 2 MG; Start 08/31/17 at 10:00 Isosorbide Mononitrate (Imdur) 30 mg DAILY PO Last administered on 09/07/17 08 :48; Admin Dose 30 MG; Start 08/31/17 at 15:30 Atorvastatin Calcium (Lipitor) 80 mg DAILY@21 PO Last administered on 20:08; Admin Dose 80 MG; Start 09/01/17 at 21:00 Aspirin (Aspirin) 81 mg DAILY PO Last administered on 09/07/17 08:48; Admin Dose 81 MG; Start 09/02/17 at 09:00 Carvedilol (Coreg) 25 mg BID PO Last administered on 09/07/17 08:48; Admin Dose 25 MG; Start 09/03/17 at 09:00 Hydralazine HCl (Apresoline) 10 mg Q4H PRN IV SBP MORE THEN 160; Start at 06:30 Oxycodone/ Acetaminophen (Endocet (10/ 325)) 1 tab Q4H PRN PO PAIN Last administered on 09/07/17 08:29; Admin Dose 1 TAB; Start 09/06/17 at 09:00 Insulin Glargine (Lantus) 30 unit DAILY@08 SC Last administered on 09/07/17 08 :44; Admin Dose 30 UNIT; Start 09/07/17 at 08:00 Diagnostic Test (Pha) (Accu-Chek) 1 ea 02 XX ; Start 09/07/17 at 02:00 Diagnostic Test (Pha) (Accu-Chek) 1 ea 02 XX ; Start 09/07/17 at 02:00 Assessment/Plan Chief Complaint/Hosp Course 1. ACS: 2. Multivessel CAD: S/P CABG 3 vessel. 09/04/17 3. ISCHEMIC CARDIOMYOPATHY 4. DM 5. HTN 6. CHF: due to systolic heart failure and chronic and stable now 7. post op resp failure:extubated now Rec cont post op care chest tube management as per CT SURGERY Cont ASA COREG ARB STATIN More than 35 minutes of critical care time was spent in management and treatment of this patient excluding any procedures. THANK YOU. RACHEL CALLAHAN MD [facility] Problems: RACHEL CALLAHAN MD Sep 07, 2017 13:51
[2017-09-07 14:26] LABS: AADO2 Arterial 527.5 mmHg (7.0-24.0); Arterial Base Excess -0.6 mmol/L (-3.0-3); Arterial COHb 0.3 % (0.0-3.0); Arterial Fraction of Oxyhgb 97.8 % (93.0-99.0); Arterial HCO3 24.2 mmol/L (22.0-26.0); Arterial MetHb 0.3 % (0.0-1.5); Arterial Total Hemglobin 12.1 g/dl (12.0-18.0); MODE VENT - AC
[2017-09-07] MEDS: morphine 2 MG INJ IV PRN (15:06)
--- NOTE | 2017-09-07 15:13 | PN ---
Date/Time of Note Date/Time of Note DATE: 09/07/17 TIME: 15:12 Assessment/Plan Lines/Catheters IV Catheter Type (from Nrsg): Peripheral IV Carbajal in Place (from Nrsg): No Assessment/Plan Chief Complaint/Hosp Course Coronary artery disease Cardiomyopathy with ejection fraction 40% SP CABG will DC CT ambulate pulm toilet to Tele Problems: Subjective 24 Hr Interval Summary Constitutional: improved Pain Control: mild Exam/Review of Systems Vital Signs Vitals Vital Signs Date Time Temp Pulse Resp B/P Pulse Ox O2 Delivery O2 Flow Rate FiO2 09/07/17 14:00 79 27 107/59 95 Nasal Cannula 4.0 09/07/17 12:00 99.0 09/04/17 22:23 40 Intake and Output 09/06/17 09/06/17 09/07/17 15:00 23:00 07:00 Intake Total 600 ml 500 ml 600 ml Output Total 830 ml 50 ml 560 ml Balance -230 ml 450 ml 40 ml Exam Neck: non-tender, supple Respiratory: clear to auscultation, normal air movement Cardiovascular: nl pulses, regular rate and rhythm Gastrointestinal: nl liver, spleen, non-tender, soft Results Result Diagram: 09/07/17 0550 09/07/17 0550 MARIE OQUENDO MD Sep 07, 2017 15:13
[2017-09-07] MEDS: ATORVASTATIN 80 MG TAB PO SCH (21:00)
[2017-09-08] VITALS (21 sets, daily range): BP systolic 100–155; BP diastolic 55–82; PULSE 71–79; RESP 19–34
[2017-09-08] MEDS: ACCU-CHEK XX SCH ×2 (02:00)
[2017-09-08] MEDS: INSULIN ASPART [NOVOLOG] 3 ML PEN SC SCH ×7 (08:28→21:00)
[2017-09-08] MEDS: INSULIN GLARGINE [LANtus] 3 ML PEN SC SCH (08:30)
[2017-09-08] MEDS: ISOSORBIDE MONONITRATE(SR)30 MG TAB PO SCH (09:00)
[2017-09-08] MEDS: VALSARTAN 160 MG TAB PO SCH ×2 (09:01→20:32)
[2017-09-08] MEDS: FUROSEMIDE 40 MG TAB PO SCH (09:01)
[2017-09-08] MEDS: ASPIRIN 81 MG TAB PO SCH (09:01)
--- NOTE | 2017-09-08 09:40 | PN ---
Date/Time of Note Date/Time of Note DATE: 09/08/17 TIME: 09:35 Assessment/Plan VTE Prophylaxis VTE Prophylaxis Intervention: SCD's Lines/Catheters IV [facility]ter Type (from [facility]): Peripheral IV Urinary Cath still in place: No Assessment/Plan Chief Complaint/Hosp Course Assessment/Plan: 62-year-old male with a history of diabetes hypertension CAD status post PCI with stent in 2012 and CHF with systolic dysfunction with EF of 40%, noncompliance who presented to the emergency department complaining of chest pain, s/p cardiac cath 10.30 notable for multivessel CAD, and sp CABG 11.3. 1. Chest pain/CABG -has ruled out for ACS - 2D echo last month with EF of 40%, again status post bypass surgery postop day # 4. -Continue telemetry monitoring, cont asa, BP control, lipid control. plavix as per cards -Follow-up cardiology and CTS recommendations 2. Acute on chronic CHF, systolic - BNP equals 880 on admission. Slowly improving -Continue Lasix PO and current cardiac medications -Monitor urine output 3. History of CAD, s/p PCI with stent in 2012 -Continue cardiac meds -See #1 4. Insulin-dependent diabetes with hyperglycemia -sugars improved since admission, still in the high normal range. A1c equals 9.3 Continue aspart with meals, Hima, EFREN, consider personal development educator consult Critical care time spent on patient care today equals 40 minutes. Problems: Subjective 24 Hr Interval Summary Free Text/Dictation Chest tube taken out yesterday. Tolerating diet. Denies chest pain. Worked with physical therapy yesterday. Exam/Review of Systems Vital Signs Vitals Vital Signs Date Time Temp Pulse Resp B/P Pulse Ox O2 Delivery O2 Flow Rate FiO2 09/08/17 08:00 73 09/08/17 05:50 3.0 09/08/17 05:00 27 133/71 91 Nasal Cannula 09/08/17 04:00 99.2 09/04/17 22:23 40 Intake and Output 09/07/17 09/07/17 09/08/17 15:00 23:00 07:00 Intake Total 340 ml 520 ml 480 ml Output Total 200 ml 0 ml 650 ml Balance 140 ml 520 ml -170 ml Exam General: Lying in bed, alert, no acute distress HEENT: NC/AT. pupils are equal. round NECK: s/p R IJ catheter. no stridor CV: RRR systolic murmur; no gallop or rubs. PULM: no wheezing or rhonchi. chest: s/p sternotomy GI: SOFT, NT, ND, no rebound or guarding Extremity: trace B/L LE edema. no clubbing. neuro: No focal deficits Psych: calm and pleasant Results Result Diagram: 09/07/17 0550 09/07/17 0550 Results 24 hrs Laboratory Tests Test 09/07/17 11:56 09/07/17 14:22 09/07/17 17:54 09/07/17 20:47 Bedside Glucose 247 H 158 101 Blood Gas Specimen Source Blood arterial Arterial Blood Date Drawn 09/04/2017 7:45:00 PM Arterial Blood pH (Temp corrected) 7.394 Arterial Blood pCO2 (Temp correct) 40.5 Arterial Blood pO2 (Temp corrected) 145.0 H Arterial Blood HCO3 24.2 Arterial Blood Base Excess -0.6 Arterial Blood Oxygen Saturation 98.4 H Jean Test N/A Arterial Blood Gas Puncture Site A-Line Arterial Blood Carboxyhemoglobin 0.3 Arterial Blood Methemoglobin 0.3 Blood Gas A-a O2 Differential 527.5 H Oxyhemoglobin Percent 97.8 Total Hemoglobin 12.1 Blood Gas Temperature 37.0 Blood Gas Respiration Rate 14.0 Blood Gas Actual Respiration Rate 16 Blood Gas Modality VENT - AC FiO2 100.0 Blood Gas Tidal Volume 550.0 Blood Gas Low PEEP Setting 5.0 Blood Gas Notified Whom MA Blood Gas Notified Time 09/04/2017 8:00:00 PM Test 09/08/17 08:14 Bedside Glucose 198 Medications Medications Current Medications Lorazepam (Ativan) 0.5 mg Q8H PRN PO ANXIETY; Start 08/29/17 at 02:00 Ondansetron HCl (Zofran Inj) 4 mg Q6H PRN IV NAUSEA AND/OR VOMITING; Start at 02:00 Nitroglycerin (Nitroglycerin (Sl Tab) 0.4 Mg) 1 tab Q5M PRN SL CHEST PAIN Last administered on 08/29/17 18:49; Admin Dose 1 TAB; Start 08/29/17 at 02:00 Acetaminophen (Tylenol Tab) 650 mg Q6H PRN PO PAIN LEVEL 1-3 OR FEVER Last administered on 09/05/17 05:29; Admin Dose 650 MG; Start 08/29/17 at 02:00 Miscellaneous Information 1 ea NOTE XX ; Start 08/29/17 at 10:30 Glucose (Glutose) 15 gm Q15M PRN PO DECREASED GLUCOSE; Start 08/29/17 at 10:30 Glucose (Glutose) 22.5 gm Q15M PRN PO DECREASED GLUCOSE; Start 08/29/17 at 10: 30 Dextrose (D50w Syringe) 25 ml Q15M PRN IV DECREASED GLUCOSE; Start 08/29/17 at 10:30 Dextrose (D50w Syringe) 50 ml Q15M PRN IV DECREASED GLUCOSE; Start 08/29/17 at 10:30 Glucagon (Glucagen) 1 mg Q15M PRN IM DECREASED GLUCOSE; Start 08/29/17 at 10: 30 Glucose (Glutose) 15 gm Q15M PRN BUCCAL DECREASED GLUCOSE; Start 08/29/17 at 10:30 Valsartan (Diovan) 160 mg BID PO Last administered on 09/08/17 09:01; Admin Dose 160 MG; Start 08/30/17 at 21:00 Furosemide (Lasix) 40 mg DAILY PO Last administered on 09/08/17 09:01; Admin Dose 40 MG; Start 08/31/17 at 09:00 Morphine Sulfate (morphine) 2 mg Q2H PRN IV FOR NON CARDIAC PAIN (4-10) Last administered on 09/07/17 15:06; Admin Dose 2 MG; Start 08/31/17 at 10:00 Isosorbide Mononitrate (Imdur) 30 mg DAILY PO Last administered on 09/08/17 09 :00; Admin Dose 30 MG; Start 08/31/17 at 15:30 Atorvastatin Calcium (Lipitor) 80 mg DAILY@21 PO Last administered on 20:08; Admin Dose 80 MG; Start 09/01/17 at 21:00 Aspirin (Aspirin) 81 mg DAILY PO Last administered on 09/08/17 09:01; Admin Dose 81 MG; Start 09/02/17 at 09:00 Carvedilol (Coreg) 25 mg BID PO Last administered on 09/08/17 09:00; Admin Dose 25 MG; Start 09/03/17 at 09:00 Hydralazine HCl (Apresoline) 10 mg Q4H PRN IV SBP MORE THEN 160; Start at 06:30 Oxycodone/ Acetaminophen (Endocet (10/ 325)) 1 tab Q4H PRN PO PAIN Last administered on 09/07/17 08:29; Admin Dose 1 TAB; Start 09/06/17 at 09:00 Insulin Glargine (Lantus) 30 unit DAILY@08 SC Last administered on 09/08/17 08 :30; Admin Dose 30 UNIT; Start 09/07/17 at 08:00 Diagnostic Test (Pha) (Accu-Chek) 1 ea 02 XX ; Start 09/07/17 at 02:00 Diagnostic Test (Pha) (Accu-Chek) 1 ea 02 XX ; Start 09/07/17 at 02:00 RAFFAELE TOLENTINO 7, 2017 09:39
[2017-09-08 10:37] LABS: BASOPHILS % 0.1 % (0.0-2.0); EOSINOPHILS # 0.1 10^3/ul (0.0-0.5); HEMATOCRIT 27.1 % (42.0-52.0); HEMOGLOBIN 9.3 g/dl (14.0-18.0); LYMPHOCYTES # 1.6 10^3/ul (0.8-2.9); LYMPHOCYTES % 17.7 % (15.0-51.0); MEAN CORPUSCULAR HEMOGLOBIN 31.2 pg (29.0-33.0); MEAN CORPUSCULAR HGB CONC 34.3 g/dl (32.0-37.0); MEAN CORPUSCULAR VOLUME 90.9 fl (82.0-101.0); MEAN PLATELET VOLUME 11.8 fl (7.4-10.4); MONOCYTE # 1.1 10^3/ul (0.3-0.9); MONOCYTES % 12.4 % (0.0-11.0); NEUTROPHIL # 6.1 10^3/ul (1.6-7.5); NEUTROPHILS % 68.5 % (39.0-77.0); PLATELET COUNT 163 10^3/UL (140-415); RED BLOOD COUNT 2.98 10^6/ul (4.70-6.10); RED CELL DISTRIBUTION WIDTH 12.9 % (11.5-14.5)
[2017-09-08 10:55] LABS: CALCIUM 7.7 mg/dl (8.4-10.2); CREATININE 0.76 mg/dl (0.61-1.24); POTASSIUM 3.8 mmol/L (3.5-5.1)
--- NOTE | 2017-09-08 14:50 | RADRPT ---
Vent Rate: 97 bpm RR Interval: 0 msec MD Interval: 188 msec QRS Duration: 114 msec QT Interval: 398 msec QTC Interval: 505 msec P-R-T [place]: 52 - -26 - -32 degrees Normal sinus rhythm Moderate voltage criteria for LVH, may be normal variant Inferior infarct , age undetermined T wave abnormality, consider lateral ischemia Prolonged QT Abnormal ECG Electronically Signed By: Modesto Arnold [id number]
--- NOTE | 2017-09-08 14:51 | RADRPT ---
Vent Rate: 97 bpm RR Interval: 0 msec MT Interval: 170 msec QRS Duration: 100 msec QT Interval: 376 msec QTC Interval: 477 msec P-R-T [place]: 39 - -21 - 109 degrees Normal sinus rhythm Voltage criteria for left ventricular hypertrophy Inferior infarct , age undetermined T wave abnormality, consider lateral ischemia Abnormal ECG Electronically Signed By: Modesto Arnold [id number]
--- NOTE | 2017-09-08 15:35 | CONS ---
Date/Time of Note Date/Time of Note DATE: 09/08/17 TIME: 15:34 Consult Date/Type/Reason Admit Date/Time Aug 28, 2017 at 23:44 Initial Consult Date 08/31/17 Type of Consultation: Card consult Subjective cardiology follow up note: S: d/w staff and Dr Fernandez pt still has mild anterior chest wall pain and tenderness. no PND orthopnea he was able to walk but started to desaturate with walking O: General: no acute distress HEENT: NC/AT. pupils are equal. round. NECK: s/p R IJ catheter. no stridor. CV: RRR. systolic murmur; no gallop or rubs. PULM: no wheezing or rhonchi. chest: s/p sternotomy. s/p chest tube. GI: SOFT, NT, ND, no rebound or guarding Extremity: trace B/L LE edema. no clubbing. neuro: awake and alert Ox 3 Psych: calm and pleasant rectal: deferred ECHO EF 40% Cxr REVIEWED. Objective Vital Signs Date Time Temp Pulse Resp B/P Pulse Ox O2 Delivery O2 Flow Rate FiO2 09/08/17 14:00 75 30 119/67 92 Nasal Cannula 4.0 09/08/17 12:00 98.0 09/04/17 22:23 40 Intake and Output 09/07/17 09/07/17 09/08/17 15:00 23:00 07:00 Intake Total 340 ml 520 ml 480 ml Output Total 200 ml 0 ml 650 ml Balance 140 ml 520 ml -170 ml Results/Medications Result Diagram: 09/08/17 1018 09/08/17 1018 Results 24 hrs Laboratory Tests Test 09/07/17 17:54 09/07/17 20:47 09/08/17 08:14 09/08/17 10:18 Bedside Glucose 158 101 198 White Blood Count 9.0 # Red Blood Count 2.98 L Hemoglobin 9.3 L Hematocrit 27.1 L Mean Corpuscular Volume 90.9 Mean Corpuscular Hemoglobin 31.2 Mean Corpuscular Hemoglobin Concent 34.3 Red Cell Distribution Width 12.9 Platelet Count 163 # Mean Platelet Volume 11.8 H Neutrophils % 68.5 Lymphocytes % 17.7 Monocytes % 12.4 H Eosinophils % 1.0 Basophils % 0.1 Nucleated Red Blood Cells % 0.0 Neutrophils # 6.1 Lymphocytes # 1.6 Monocytes # 1.1 H Eosinophils # 0.1 Basophils # 0.0 Nucleated Red Blood Cells # 0.0 Sodium Level 129 L Potassium Level 3.8 Chloride Level 96 L Carbon Dioxide Level 25 Anion Gap 12 Blood Urea Nitrogen 19 Creatinine 0.76 Glucose Level 176 Calcium Level 7.7 L Test 09/08/17 11:54 Bedside Glucose 171 Medications Current Medications Lorazepam (Ativan) 0.5 mg Q8H PRN PO ANXIETY; Start 08/29/17 at 02:00 Ondansetron HCl (Zofran Inj) 4 mg Q6H PRN IV NAUSEA AND/OR VOMITING; Start at 02:00 Nitroglycerin (Nitroglycerin (Sl Tab) 0.4 Mg) 1 tab Q5M PRN SL CHEST PAIN Last administered on 08/29/17 18:49; Admin Dose 1 TAB; Start 08/29/17 at 02:00 Acetaminophen (Tylenol Tab) 650 mg Q6H PRN PO PAIN LEVEL 1-3 OR FEVER Last administered on 09/05/17 05:29; Admin Dose 650 MG; Start 08/29/17 at 02:00 Miscellaneous Information 1 ea NOTE XX ; Start 08/29/17 at 10:30 Glucose (Glutose) 15 gm Q15M PRN PO DECREASED GLUCOSE; Start 08/29/17 at 10:30 Glucose (Glutose) 22.5 gm Q15M PRN PO DECREASED GLUCOSE; Start 08/29/17 at 10: 30 Dextrose (D50w Syringe) 25 ml Q15M PRN IV DECREASED GLUCOSE; Start 08/29/17 at 10:30 Dextrose (D50w Syringe) 50 ml Q15M PRN IV DECREASED GLUCOSE; Start 08/29/17 at 10:30 Glucagon (Glucagen) 1 mg Q15M PRN IM DECREASED GLUCOSE; Start 08/29/17 at 10: 30 Glucose (Glutose) 15 gm Q15M PRN BUCCAL DECREASED GLUCOSE; Start 08/29/17 at 10:30 Valsartan (Diovan) 160 mg BID PO Last administered on 09/08/17 09:01; Admin Dose 160 MG; Start 08/30/17 at 21:00 Furosemide (Lasix) 40 mg DAILY PO Last administered on 09/08/17 09:01; Admin Dose 40 MG; Start 08/31/17 at 09:00 Morphine Sulfate (morphine) 2 mg Q2H PRN IV FOR NON CARDIAC PAIN (4-10) Last administered on 09/07/17 15:06; Admin Dose 2 MG; Start 08/31/17 at 10:00 Isosorbide Mononitrate (Imdur) 30 mg DAILY PO Last administered on 09/08/17 09 :00; Admin Dose 30 MG; Start 08/31/17 at 15:30 Atorvastatin Calcium (Lipitor) 80 mg DAILY@21 PO Last administered on 20:08; Admin Dose 80 MG; Start 09/01/17 at 21:00 Aspirin (Aspirin) 81 mg DAILY PO Last administered on 09/08/17 09:01; Admin Dose 81 MG; Start 09/02/17 at 09:00 Carvedilol (Coreg) 25 mg BID PO Last administered on 09/08/17 09:00; Admin Dose 25 MG; Start 09/03/17 at 09:00 Hydralazine HCl (Apresoline) 10 mg Q4H PRN IV SBP MORE THEN 160; Start at 06:30 Oxycodone/ Acetaminophen (Endocet (10/ 325)) 1 tab Q4H PRN PO PAIN Last administered on 09/07/17 08:29; Admin Dose 1 TAB; Start 09/06/17 at 09:00 Insulin Glargine (Lantus) 30 unit DAILY@08 SC Last administered on 09/08/17 08 :30; Admin Dose 30 UNIT; Start 09/07/17 at 08:00 Diagnostic Test (Pha) (Accu-Chek) 1 ea 02 XX ; Start 09/07/17 at 02:00 Diagnostic Test (Pha) (Accu-Chek) 1 ea 02 XX ; Start 09/07/17 at 02:00 Assessment/Plan Chief Complaint/Hosp Course 1. ACS: 2. Multivessel CAD: S/P CABG 3 vessel. 09/04/17 3. ISCHEMIC CARDIOMYOPATHY 4. DM 5. HTN 6. CHF: due to systolic heart failure and chronic and stable now 7. post op resp failure:extubated now Rec cont post op care chest tube management as per CT SURGERY Cont ASA COREG ARB STATIN diuresis prn transfer out of ICU to tele THANK YOU. RACHEL CALLAHAN MD [facility] Problems: RACHEL CALLAHAN MD Sep 08, 2017 15:35
[2017-09-08] MEDS: OXYCODONE/ACETAMINOPHEN (10/325) TAB PO PRN (19:40)
[2017-09-08] MEDS: ATORVASTATIN 80 MG TAB PO SCH (20:31)
--- NOTE | 2017-09-08 21:03 | PN ---
Date/Time of Note Date/Time of Note DATE: 09/08/17 TIME: 21:03 Assessment/Plan Lines/Catheters IV Catheter Type (from Nrsg): Saline Lock Carbajal in Place (from Nrsg): No Assessment/Plan Chief Complaint/Hosp Course Coronary artery disease Cardiomyopathy with ejection fraction 40% SP CABG CT DCed ambulate pulm toilet DC Planning Problems: Subjective 24 Hr Interval Summary Constitutional: improved Pain Control: mild Exam/Review of Systems Vital Signs Vitals Vital Signs Date Time Temp Pulse Resp B/P Pulse Ox O2 Delivery O2 Flow Rate FiO2 09/08/17 19:49 98.4 76 20 130/65 91 09/08/17 17:00 Nasal Cannula 3.0 09/04/17 22:23 40 Intake and Output 09/07/17 09/07/17 09/08/17 15:00 23:00 07:00 Intake Total 340 ml 520 ml 480 ml Output Total 200 ml 0 ml 650 ml Balance 140 ml 520 ml -170 ml Exam ENMT: mucosa pink and moist, nl external ears & nose, nl lips & teeth, nl nasal mucosa & septum Neck: non-tender, supple Respiratory: clear to auscultation, normal air movement Cardiovascular: nl pulses, regular rate and rhythm Results Result Diagram: 09/08/17 1018 09/08/17 1018 MARIE OQUENDO MD Sep 08, 2017 21:03
[2017-09-08] MEDS ORDERED: SOD CHLORIDE 0.9% 1,000 ML IV SCH (23:41)
[2017-09-09] VITALS (11 sets, daily range): BP systolic 100–139; BP diastolic 55–69; PULSE 63–74; RESP 19–21
[2017-09-09] MEDS ORDERED: CALCIUM GLUCONATE 10% 1 GM in SOD CHLORIDE 0.9% 100 ML IVPB ONE ×2
[2017-09-09] MEDS: ACCU-CHEK XX SCH ×2 (01:06→02:00)
[2017-09-09] MEDS: OXYCODONE/ACETAMINOPHEN (10/325) TAB PO PRN ×3 (02:25→21:00)
[2017-09-09 07:59] LABS: HEMOGLOBIN 9.1 g/dl (14.0-18.0); RED BLOOD COUNT 3.02 10^6/ul (4.70-6.10); WHITE BLOOD COUNT 8.7 10^3/ul (4.8-10.8)
[2017-09-09 08:00] LABS: BASOPHILS % 0.2 % (0.0-2.0); EOSINOPHILS # 0.1 10^3/ul (0.0-0.5); EOSINOPHILS % 1.6 % (0.0-7.0); HEMATOCRIT 27.5 % (42.0-52.0); LYMPHOCYTES # 2.3 10^3/ul (0.8-2.9); LYMPHOCYTES % 26.1 % (15.0-51.0); MEAN CORPUSCULAR HEMOGLOBIN 30.1 pg (29.0-33.0); MEAN CORPUSCULAR HGB CONC 33.1 g/dl (32.0-37.0); MEAN CORPUSCULAR VOLUME 91.1 fl (82.0-101.0); MEAN PLATELET VOLUME 11.8 fl (7.4-10.4); MONOCYTE # 1.1 10^3/ul (0.3-0.9); MONOCYTES % 12.6 % (0.0-11.0); NEUTROPHIL # 5.1 10^3/ul (1.6-7.5); NEUTROPHILS % 58.9 % (39.0-77.0); PLATELET COUNT 212 10^3/UL (140-415); RED CELL DISTRIBUTION WIDTH 13.2 % (11.5-14.5)
[2017-09-09 08:23] LABS: ALBUMIN 3.1 g/dl (3.3-4.9); BILIRUBIN,INDIRECT 0.6 mg/dl (0-1.1); BILIRUBIN,TOTAL 0.6 mg/dl (0.2-1.3); CREATININE 0.76 mg/dl (0.61-1.24); POTASSIUM 3.6 mmol/L (3.5-5.1); TOTAL PROTEIN 6.2 g/dl (6.1-8.1)
[2017-09-09] MEDS: INSULIN ASPART [NOVOLOG] 3 ML PEN SC SCH ×7 (08:36→21:19)
[2017-09-09] MEDS: INSULIN GLARGINE [LANtus] 3 ML PEN SC SCH (08:38)
--- NOTE | 2017-09-09 09:01 | CONS ---
Date/Time of Note Date/Time of Note DATE: 09/09/17 TIME: 08:57 Consult Date/Type/Reason Admit Date/Time Aug 28, 2017 at 23:44 Initial Consult Date 08/31/17 Type of Consultation: Card consult Subjective cardiology follow up note: S: d/w staff and rhythm was reviewed. pt still has mild anterior chest wall pain and tenderness. no PND orthopnea he was able to walk pt is out of ICU O: General: no acute distress HEENT: NC/AT. pupils are equal. round. NECK: s/p R IJ catheter. no stridor. CV: RRR. systolic murmur; no gallop or rubs. PULM: no wheezing . ,MILD left sided rhonchi. chest: s/p sternotomy. s/p chest tube. GI: SOFT, NT, ND, no rebound or guarding Extremity: trace B/L LE edema. no clubbing. neuro: awake and alert Ox 3 Psych: calm and pleasant rectal: deferred Objective Vital Signs Date Time Temp Pulse Resp B/P Pulse Ox O2 Delivery O2 Flow Rate FiO2 09/09/17 08:08 67 09/09/17 07:16 98.7 19 114/69 96 09/09/17 05:37 3.0 09/08/17 20:00 Nasal Cannula Intake and Output 09/08/17 09/08/17 09/09/17 15:00 23:00 07:00 Intake Total 390 ml 375 ml Output Total 600 ml Balance -210 ml 375 ml Results/Medications Result Diagram: 09/09/17 0649 09/09/17 0649 Results 24 hrs Laboratory Tests Test 09/08/17 10:18 09/08/17 11:54 09/08/17 17:29 09/08/17 20:35 White Blood Count 9.0 # Red Blood Count 2.98 L Hemoglobin 9.3 L Hematocrit 27.1 L Mean Corpuscular Volume 90.9 Mean Corpuscular Hemoglobin 31.2 Mean Corpuscular Hemoglobin Concent 34.3 Red Cell Distribution Width 12.9 Platelet Count 163 # Mean Platelet Volume 11.8 H Neutrophils % 68.5 Lymphocytes % 17.7 Monocytes % 12.4 H Eosinophils % 1.0 Basophils % 0.1 Nucleated Red Blood Cells % 0.0 Neutrophils # 6.1 Lymphocytes # 1.6 Monocytes # 1.1 H Eosinophils # 0.1 Basophils # 0.0 Nucleated Red Blood Cells # 0.0 Sodium Level 129 L Potassium Level 3.8 Chloride Level 96 L Carbon Dioxide Level 25 Anion Gap 12 Blood Urea Nitrogen 19 Creatinine 0.76 Glucose Level 176 Calcium Level 7.7 L Bedside Glucose 171 98 86 Test 09/09/17 06:49 09/09/17 07:44 White Blood Count 8.7 Red Blood Count 3.02 L Hemoglobin 9.1 L Hematocrit 27.5 L Mean Corpuscular Volume 91.1 Mean Corpuscular Hemoglobin 30.1 Mean Corpuscular Hemoglobin Concent 33.1 Red Cell Distribution Width 13.2 Platelet Count 212 # Mean Platelet Volume 11.8 H Neutrophils % 58.9 Lymphocytes % 26.1 Monocytes % 12.6 H Eosinophils % 1.6 Basophils % 0.2 Nucleated Red Blood Cells % 0.0 Neutrophils # 5.1 Lymphocytes # 2.3 Monocytes # 1.1 H Eosinophils # 0.1 Basophils # 0.0 Nucleated Red Blood Cells # 0.0 Sodium Level 132 L Potassium Level 3.6 Chloride Level 98 Carbon Dioxide Level 26 Anion Gap 12 Blood Urea Nitrogen 16 Creatinine 0.76 Glucose Level 137 Calcium Level 8.0 L Magnesium Level 2.0 Total Bilirubin 0.6 Direct Bilirubin 0.00 Indirect Bilirubin 0.6 Aspartate Amino Transf (AST/SGOT) 36 Alanine Aminotransferase (ALT/SGPT) 40 Alkaline Phosphatase 68 B-Type Natriuretic Peptide 2390 H Total Protein 6.2 Albumin 3.1 L Globulin 3.10 Albumin/Globulin Ratio 1.00 Bedside Glucose 153 Medications Current Medications Lorazepam (Ativan) 0.5 mg Q8H PRN PO ANXIETY; Start 08/29/17 at 02:00 Ondansetron HCl (Zofran Inj) 4 mg Q6H PRN IV NAUSEA AND/OR VOMITING; Start at 02:00 Nitroglycerin (Nitroglycerin (Sl Tab) 0.4 Mg) 1 tab Q5M PRN SL CHEST PAIN Last administered on 08/29/17 18:49; Admin Dose 1 TAB; Start 08/29/17 at 02:00 Acetaminophen (Tylenol Tab) 650 mg Q6H PRN PO PAIN LEVEL 1-3 OR FEVER Last administered on 09/05/17 05:29; Admin Dose 650 MG; Start 08/29/17 at 02:00 Miscellaneous Information 1 ea NOTE XX ; Start 08/29/17 at 10:30 Glucose (Glutose) 15 gm Q15M PRN PO DECREASED GLUCOSE; Start 08/29/17 at 10:30 Glucose (Glutose) 22.5 gm Q15M PRN PO DECREASED GLUCOSE; Start 08/29/17 at 10: 30 Dextrose (D50w Syringe) 25 ml Q15M PRN IV DECREASED GLUCOSE; Start 08/29/17 at 10:30 Dextrose (D50w Syringe) 50 ml Q15M PRN IV DECREASED GLUCOSE; Start 08/29/17 at 10:30 Glucagon (Glucagen) 1 mg Q15M PRN IM DECREASED GLUCOSE; Start 08/29/17 at 10: 30 Glucose (Glutose) 15 gm Q15M PRN BUCCAL DECREASED GLUCOSE; Start 08/29/17 at 10:30 Valsartan (Diovan) 160 mg BID PO Last administered on 09/08/17 20:32; Admin Dose 160 MG; Start 08/30/17 at 21:00 Furosemide (Lasix) 40 mg DAILY PO Last administered on 09/08/17 09:01; Admin Dose 40 MG; Start 08/31/17 at 09:00 Morphine Sulfate (morphine) 2 mg Q2H PRN IV FOR NON CARDIAC PAIN (4-10) Last administered on 09/07/17 15:06; Admin Dose 2 MG; Start 08/31/17 at 10:00 Isosorbide Mononitrate (Imdur) 30 mg DAILY PO Last administered on 09/08/17 09 :00; Admin Dose 30 MG; Start 08/31/17 at 15:30 Atorvastatin Calcium (Lipitor) 80 mg DAILY@21 PO Last administered on 20:31; Admin Dose 80 MG; Start 09/01/17 at 21:00 Aspirin (Aspirin) 81 mg DAILY PO Last administered on 09/08/17 09:01; Admin Dose 81 MG; Start 09/02/17 at 09:00 Carvedilol (Coreg) 25 mg BID PO Last administered on 09/08/17 20:32; Admin Dose 25 MG; Start 09/03/17 at 09:00 Hydralazine HCl (Apresoline) 10 mg Q4H PRN IV SBP MORE THEN 160; Start at 06:30 Oxycodone/ Acetaminophen (Endocet (10/ 325)) 1 tab Q4H PRN PO PAIN Last administered on 09/09/17 02:25; Admin Dose 1 TAB; Start 09/06/17 at 09:00 Insulin Glargine (Lantus) 30 unit DAILY@08 SC Last administered on 09/09/17 08 :38; Admin Dose 30 UNIT; Start 09/07/17 at 08:00 Diagnostic Test (Pha) (Accu-Chek) 1 ea 02 XX ; Start 09/07/17 at 02:00 Diagnostic Test (Pha) 1 ea 1 ea 02 XX ; Start 09/07/17 at 02:00 Sodium Chloride (NS) 1,000 ml @ 75 mls/hr [id number] IV Last administered on 09/08 23:53; Admin Dose 75 MLS/HR; Start 09/08/17 at 23:41 Assessment/Plan Chief Complaint/Hosp Course 1. ACS: 2. Multivessel CAD: S/P CABG 3 vessel. 09/04/17 3. ISCHEMIC CARDIOMYOPATHY 4. DM 5. HTN 6. CHF: due to systolic heart failure and chronic and stable now 7. post op resp failure:extubated now 8. post op pleural effusion Rec cont post op care Cont ASA COREG ARB STATIN cont lasix for now. will dc isordil now that pt already had CABG and no angina chest u.s today and consider thoracentesis if + significant pleural effusion dc planning for thursday?. THANK YOU. RACHEL CALLAHAN MD [facility] Problems: RACHEL CALLAHAN MD Sep 09, 2017 09:00
[2017-09-09] MEDS: FUROSEMIDE 40 MG TAB PO SCH (09:48)
[2017-09-09] MEDS: VALSARTAN 160 MG TAB PO SCH ×2 (09:49→20:59)
[2017-09-09] MEDS: ASPIRIN 81 MG TAB PO SCH (09:49)
--- NOTE | 2017-09-09 11:46 | RADRPT ---
PROCEDURE: US Chest. CLINICAL INDICATION: Shortness of breath. TECHNIQUE: Ultrasound of both sides of the chest was performed in the axial and sagittal planes. COMPARISON: No prior study is available for comparison. FINDINGS: There are small bilateral pleural effusions with left larger than right. IMPRESSION: 1. Small bilateral pleural effusions with left larger than right. RPTAT: QQ .Billy Maciel MD, MD Date Time Electronically viewed and signed by .Billy Maciel MD, MD on 09/09/2017 11:46 .R/
--- NOTE | 2017-09-09 12:23 | PN ---
Date/Time of Note Date/Time of Note DATE: 09/09/17 TIME: 12:21 Assessment/Plan VTE Prophylaxis VTE Prophylaxis Intervention: SCD's Lines/Catheters [facility] Sal[facility] Urinary Cath still in place: No Assessment/Plan Chief Complaint/Hosp Course Assessment/Plan: 62-year-old male with a history of diabetes hypertension CAD status post PCI with stent in 2012 and CHF with systolic dysfunction with EF of 40%, noncompliance who presented to the emergency department complaining of chest pain, s/p cardiac cath 10.30 notable for multivessel CAD, and sp CABG 11.3. 1. Chest pain/CABG -has ruled out for ACS - 2D echo last month with EF of 40%, again status post bypass surgery postop day # 5. -Continue telemetry monitoring, cont asa, BP control, lipid control. plavix as per cards -Follow-up cardiology and CTS recommendations 2. Acute on chronic CHF, systolic - BNP equals 880 on admission. Slowly improving. Chest ultrasound does show some pleural effusion however. -Continue Lasix PO and current cardiac medications -Monitor urine output, discuss with cardiology team about possible thoracentesis or continuing to monitor 3. History of CAD, s/p PCI with stent in 2012 -Continue cardiac meds -See #1 4. Insulin-dependent diabetes with hyperglycemia -sugars improved since admission, still in the high normal range. A1c equals 9.3 Continue aspart with meals, Levemir, ISS, consider perinatal educator consult es. Problems: Subjective 24 Hr Interval Summary Free Text/Dictation Out of ICU now, had ultrasound of chest performed, seen by cardiology team, denies any chest pain or shortness of breath presently. Exam/Review of Systems Vital Signs Vitals Vital Signs Date Time Temp Pulse Resp B/P Pulse Ox O2 Delivery O2 Flow Rate FiO2 09/09/17 12:04 71 09/09/17 11:12 98.1 19 124/60 93 09/09/17 05:37 3.0 09/08/17 20:00 Nasal Cannula Intake and Output 09/08/17 09/08/17 09/09/17 14:59 22:59 06:59 Intake Total 390 ml 375 ml Output Total 600 ml Balance -210 ml 375 ml Exam General: Lying in bed, alert, no acute distress HEENT: NC/AT. pupils are equal. round NECK: s/p R IJ catheter. no stridor CV: RRR systolic murmur; no gallop or rubs. PULM: no wheezing or rhonchi. Chest: s/p sternotomy GI: SOFT, NT, ND, no rebound or guarding Extremity: trace B/L LE edema. no clubbing. Neuro: No focal deficits Psych: calm and pleasant Results Result Diagram: 09/09/17 0649 09/09/17 0649 Results 24 hrs Laboratory Tests Test 09/08/17 17:29 09/08/17 20:35 09/09/17 06:49 09/09/17 07:44 Bedside Glucose 98 86 153 White Blood Count 8.7 Red Blood Count 3.02 L Hemoglobin 9.1 L Hematocrit 27.5 L Mean Corpuscular Volume 91.1 Mean Corpuscular Hemoglobin 30.1 Mean Corpuscular Hemoglobin Concent 33.1 Red Cell Distribution Width 13.2 Platelet Count 212 # Mean Platelet Volume 11.8 H Neutrophils % 58.9 Lymphocytes % 26.1 Monocytes % 12.6 H Eosinophils % 1.6 Basophils % 0.2 Nucleated Red Blood Cells % 0.0 Neutrophils # 5.1 Lymphocytes # 2.3 Monocytes # 1.1 H Eosinophils # 0.1 Basophils # 0.0 Nucleated Red Blood Cells # 0.0 Sodium Level 132 L Potassium Level 3.6 Chloride Level 98 Carbon Dioxide Level 26 Anion Gap 12 Blood Urea Nitrogen 16 Creatinine 0.76 Glucose Level 137 Calcium Level 8.0 L Magnesium Level 2.0 Total Bilirubin 0.6 Direct Bilirubin 0.00 Indirect Bilirubin 0.6 Aspartate Amino Transf (AST/SGOT) 36 Alanine Aminotransferase (ALT/SGPT) 40 Alkaline Phosphatase 68 B-Type Natriuretic Peptide 2390 H Total Protein 6.2 Albumin 3.1 L Globulin 3.10 Albumin/Globulin Ratio 1.00 Test 09/09/17 11:46 Bedside Glucose 254 H Medications Medications Current Medications Lorazepam (Ativan) 0.5 mg Q8H PRN PO ANXIETY; Start 08/29/17 at 02:00 Ondansetron HCl (Zofran Inj) 4 mg Q6H PRN IV NAUSEA AND/OR VOMITING; Start at 02:00 Nitroglycerin (Nitroglycerin (Sl Tab) 0.4 Mg) 1 tab Q5M PRN SL CHEST PAIN Last administered on 08/29/17t 18:49; Admin Dose 1 TAB; Start 08/29/17 at 02:00 Acetaminophen (Tylenol Tab) 650 mg Q6H PRN PO PAIN LEVEL 1-3 OR FEVER Last administered on 09/05/17 05:29; Admin Dose 650 MG; Start 08/29/17 at 02:00 Miscellaneous Information 1 ea NOTE XX ; Start 08/29/17 at 10:30 Glucose (Glutose) 15 gm Q15M PRN PO DECREASED GLUCOSE; Start 08/29/17 at 10:30 Glucose (Glutose) 22.5 gm Q15M PRN PO DECREASED GLUCOSE; Start 08/29/17 at 10: 30 Dextrose (D50w Syringe) 25 ml Q15M PRN IV DECREASED GLUCOSE; Start 08/29/17 at 10:30 Dextrose (D50w Syringe) 50 ml Q15M PRN IV DECREASED GLUCOSE; Start 08/29/17 at 10:30 Glucagon (Glucagen) 1 mg Q15M PRN IM DECREASED GLUCOSE; Start 08/29/17 at 10: 30 Glucose (Glutose) 15 gm Q15M PRN BUCCAL DECREASED GLUCOSE; Start 08/29/17 at 10:30 Valsartan (Diovan) 160 mg BID PO Last administered on 09/09/17 09:49; Admin Dose 160 MG; Start 08/30/17 at 21:00 Furosemide (Lasix) 40 mg DAILY PO Last administered on 09/09/17 09:48; Admin Dose 40 MG; Start 08/31/17 at 09:00 Morphine Sulfate (morphine) 2 mg Q2H PRN IV FOR NON CARDIAC PAIN (4-10) Last administered on 09/07/17 15:06; Admin Dose 2 MG; Start 08/31/17 at 10:00 Atorvastatin Calcium (Lipitor) 80 mg DAILY@21 PO Last administered on 20:31; Admin Dose 80 MG; Start 09/01/17 at 21:00 Aspirin (Aspirin) 81 mg DAILY PO Last administered on 09/09/17 09:49; Admin Dose 81 MG; Start 09/02/17 at 09:00 Carvedilol (Coreg) 25 mg BID PO Last administered on 09/09/17 09:49; Admin Dose 25 MG; Start 09/03/17 at 09:00 Hydralazine HCl (Apresoline) 10 mg Q4H PRN IV SBP MORE THEN 160; Start at 06:30 Oxycodone/ Acetaminophen (Endocet (10/ 325)) 1 tab Q4H PRN PO PAIN Last administered on 09/09/17 02:25; Admin Dose 1 TAB; Start 09/06/17 at 09:00 Insulin Glargine (Lantus) 30 unit DAILY@08 SC Last administered on 09/09/17 08 :38; Admin Dose 30 UNIT; Start 09/07/17 at 08:00 Diagnostic Test (Pha) (Accu-Chek) 1 ea 02 XX ; Start 09/07/17 at 02:00 Diagnostic Test (Pha) 1 ea 1 ea 02 XX ; Start 09/07/17 at 02:00 Sodium Chloride (NS) 1,000 ml @ 75 mls/hr [id number] IV Last administered on 09/08 23:53; Admin Dose 75 MLS/HR; Start 09/08/17 at 23:41; Status Future Hold RAFFAELE TOLENTINO Sep 09, 2017 12:23
[2017-09-09] MEDS: ATORVASTATIN 80 MG TAB PO SCH (20:59)
[2017-09-10] VITALS (13 sets, daily range): BP systolic 124–150; BP diastolic 64–78; PULSE 71–80; RESP 17–20
[2017-09-10] MEDS: ACCU-CHEK XX SCH ×2 (02:00)
[2017-09-10 08:00] LABS: ALBUMIN/GLOBULIN RATIO 0.9; BILIRUBIN,INDIRECT 0.5 mg/dl (0-1.1); BILIRUBIN,TOTAL 0.5 mg/dl (0.2-1.3); CALCIUM 8.3 mg/dl (8.4-10.2); CREATININE 0.73 mg/dl (0.61-1.24); MAGNESIUM 1.9 mg/dl (1.7-2.5); POTASSIUM 4.2 mmol/L (3.5-5.1); TOTAL PROTEIN 6.3 g/dl (6.1-8.1)
--- NOTE | 2017-09-10 08:05 | CONS ---
Date/Time of Note Date/Time of Note DATE: 09/10/17 TIME: 08:04 Consult Date/Type/Reason Admit Date/Time Aug 28, 2017 at 23:44 Initial Consult Date 08/31/17 Type of Consultation: Card consult Subjective cardiology follow up note: S: d/w staff and rhythm was reviewed. pt still has mild anterior chest wall pain and tenderness. no PND but c/o sob. he was able to walk O: General: no acute distress HEENT: NC/AT. pupils are equal. round. NECK: s/p R IJ catheter. no stridor. CV: RRR. systolic murmur; no gallop or rubs. PULM: no wheezing . ,MILD left sided rhonchi. chest: s/p sternotomy. s/p chest tube. GI: SOFT, NT, ND, no rebound or guarding Extremity: trace B/L LE edema. no clubbing. neuro: awake and alert Ox 3 Psych: calm and pleasant rectal: deferred chest u./s small pleural effusion Objective Vital Signs Date Time Temp Pulse Resp B/P Pulse Ox O2 Delivery O2 Flow Rate FiO2 09/10/17 08:03 72 09/10/17 07:35 Nasal Cannula 09/10/17 07:16 99.2 19 149/71 97 09/09/17 20:01 4.0 Intake and Output 09/09/17 09/09/17 09/10/17 15:00 23:00 07:00 Intake Total 800 ml 420 ml Balance 800 ml 420 ml Results/Medications Result Diagram: 09/09/17 0649 09/10/17 0641 Results 24 hrs Laboratory Tests Test 09/09/17 11:46 09/09/17 17:27 09/09/17 21:08 09/10/17 01:34 Bedside Glucose 254 H 126 241 H 162 Test 09/10/17 06:41 Sodium Level 133 L Potassium Level 4.2 Chloride Level 99 Carbon Dioxide Level 27 Anion Gap 11 Blood Urea Nitrogen 13 Creatinine 0.73 Glucose Level 178 Calcium Level 8.3 L Magnesium Level 1.9 Total Bilirubin 0.5 Direct Bilirubin 0.00 Indirect Bilirubin 0.5 Aspartate Amino Transf (AST/SGOT) 34 Alanine Aminotransferase (ALT/SGPT) 50 Alkaline Phosphatase 81 B-Type Natriuretic Peptide 2740 H Total Protein 6.3 Albumin 3.0 L Globulin 3.30 H Albumin/Globulin Ratio 0.90 Medications Current Medications Lorazepam (Ativan) 0.5 mg Q8H PRN PO ANXIETY; Start 08/29/17 at 02:00 Ondansetron HCl (Zofran Inj) 4 mg Q6H PRN IV NAUSEA AND/OR VOMITING; Start at 02:00 Nitroglycerin (Nitroglycerin (Sl Tab) 0.4 Mg) 1 tab Q5M PRN SL CHEST PAIN Last administered on 08/29/17 18:49; Admin Dose 1 TAB; Start 08/29/17 at 02:00 Acetaminophen (Tylenol Tab) 650 mg Q6H PRN PO PAIN LEVEL 1-3 OR FEVER Last administered on 09/05/17 05:29; Admin Dose 650 MG; Start 08/29/17 at 02:00 Miscellaneous Information 1 ea NOTE XX ; Start 08/29/17 at 10:30 Glucose (Glutose) 15 gm Q15M PRN PO DECREASED GLUCOSE; Start 08/29/17 at 10:30 Glucose (Glutose) 22.5 gm Q15M PRN PO DECREASED GLUCOSE; Start 08/29/17 at 10: 30 Dextrose (D50w Syringe) 25 ml Q15M PRN IV DECREASED GLUCOSE; Start 08/29/17 at 10:30 Dextrose (D50w Syringe) 50 ml Q15M PRN IV DECREASED GLUCOSE; Start 08/29/17 at 10:30 Glucagon (Glucagen) 1 mg Q15M PRN IM DECREASED GLUCOSE; Start 08/29/17 at 10: 30 Glucose (Glutose) 15 gm Q15M PRN BUCCAL DECREASED GLUCOSE; Start 08/29/17 at 10:30 Valsartan (Diovan) 160 mg BID PO Last administered on 09/09/17 20:59; Admin Dose 160 MG; Start 08/30/17 at 21:00 Furosemide (Lasix) 40 mg DAILY PO Last administered on 09/09/17 09:48; Admin Dose 40 MG; Start 08/31/17 at 09:00 Morphine Sulfate (morphine) 2 mg Q2H PRN IV FOR NON CARDIAC PAIN (4-10) Last administered on 09/07/17 15:06; Admin Dose 2 MG; Start 08/31/17 at 10:00 Atorvastatin Calcium (Lipitor) 80 mg DAILY@21 PO Last administered on 20:59; Admin Dose 80 MG; Start 09/01/17 at 21:00 Aspirin (Aspirin) 81 mg DAILY PO Last administered on 09/09/17 09:49; Admin Dose 81 MG; Start 09/02/17 at 09:00 Carvedilol (Coreg) 25 mg BID PO Last administered on 09/09/17 21:00; Admin Dose 25 MG; Start 09/03/17 at 09:00 Hydralazine HCl (Apresoline) 10 mg Q4H PRN IV SBP MORE THEN 160; Start at 06:30 Oxycodone/ Acetaminophen (Endocet (10 325)) 1 tab Q4H PRN PO PAIN Last administered on 09/09/17 21:00; Admin Dose 1 TAB; Start 09/06/17 at 09:00 Insulin Glargine (Lantus) 30 unit DAILY@08 SC Last administered on 09/09/17 08 :38; Admin Dose 30 UNIT; Start 09/07/17 at 08:00 Diagnostic Test (Pha) (Accu-Chek) 1 ea 02 XX ; Start 09/07/17 at 02:00 Diagnostic Test (Pha) 1 ea 1 ea 02 XX ; Start 09/07/17 at 02:00 Sodium Chloride (NS) 1,000 ml @ 75 mls/hr [id number] IV Last administered on 09/08 23:53; Admin Dose 75 MLS/HR; Start 09/08/17 at 23:41; Status Future Hold Furosemide (Lasix) 40 mg ONCE ONCE IV ; Start 09/10/17 at 15:00; Stop 09/10/17 at 15:01 Assessment/Plan Chief Complaint/Hosp Course 1. ACS: 2. Multivessel CAD: S/P CABG 3 vessel. 09/04/17 3. ISCHEMIC CARDIOMYOPATHY 4. DM 5. HTN 6. CHF: due to systolic heart failure and chronic and stable now 7. post op resp failure:extubated now 8. post op pleural effusion Rec cont post op care Cont ASA COREG ARB STATIN cont po lasix for now. will give extra dose this afternoon off of isordil now that pt already had CABG and no angina CXR today dc planning for thursday? IF OK with CT SURGERY F/U with me in 1-2 weeks after devonte james THANK YOU. RACHEL CALLAHAN MD [facility] Problems: RACHEL CALLAHAN MD Sep 10, 2017 08:05
[2017-09-10] MEDS: FUROSEMIDE 40 MG TAB PO SCH (08:21)
[2017-09-10] MEDS: ASPIRIN 81 MG TAB PO SCH (08:21)
[2017-09-10] MEDS: VALSARTAN 160 MG TAB PO SCH ×2 (08:21→20:56)
[2017-09-10] MEDS: INSULIN GLARGINE [LANtus] 3 ML PEN SC SCH (08:29)
[2017-09-10] MEDS: INSULIN ASPART [NOVOLOG] 3 ML PEN SC SCH ×6 (08:29→20:57)
[2017-09-10] MEDS ORDERED: MAGNESIUM SULFATE 2 GM/50 ML 50 ML IVPB ONE (08:30)
[2017-09-10 09:01] LABS: BASOPHILS % 0.4 % (0.0-2.0); EOSINOPHILS # 0.1 10^3/ul (0.0-0.5); HEMATOCRIT 28.1 % (42.0-52.0); HEMOGLOBIN 9.3 g/dl (14.0-18.0); LYMPHOCYTES # 1.8 10^3/ul (0.8-2.9); LYMPHOCYTES % 16.8 % (15.0-51.0); MEAN CORPUSCULAR HEMOGLOBIN 30.5 pg (29.0-33.0); MEAN CORPUSCULAR HGB CONC 33.1 g/dl (32.0-37.0); MEAN CORPUSCULAR VOLUME 92.1 fl (82.0-101.0); MEAN PLATELET VOLUME 11.6 fl (7.4-10.4); MONOCYTE # 1.3 10^3/ul (0.3-0.9); NEUTROPHIL # 7.3 10^3/ul (1.6-7.5); NEUTROPHILS % 69.1 % (39.0-77.0); PLATELET COUNT 232 10^3/UL (140-415); RED BLOOD COUNT 3.05 10^6/ul (4.70-6.10); RED CELL DISTRIBUTION WIDTH 13.3 % (11.5-14.5); WHITE BLOOD COUNT 10.5 10^3/ul (4.8-10.8)
--- NOTE | 2017-09-10 10:23 | RADRPT ---
PROCEDURE: XR Chest. CLINICAL INDICATION: Shortness of breath. TECHNIQUE: Single frontal view. COMPARISON: 09/07/2017. FINDINGS: The left chest tube and mediastinal drain have been removed. Sternal wires and mediastinal clips are once again noted. The right lung is clear. There is left basilar atelectasis, slightly worse than s een previously. The heart is enlarged. There is a small right pleural effusion and a moderate left pleural effusion. There is no pneumothorax. IMPRESSION: 1. Left chest tube and mediastinal drain removed. 2. Previous median sternotomy. 3. Left basilar atelectasis, slightly worse than seen previously. 4. Cardiomegaly. 5. Small right pleural effusion and moderate left pleural effusion. RPTAT: QQ .Billy Maciel MD, MD Date Time Electronically viewed and signed by .Billy Maciel MD, MD on 09/10/2017 10:23 .R/
--- NOTE | 2017-09-10 12:00 | PN ---
Date/Time of Note Date/Time of Note DATE: 09/10/17 TIME: 11:58 Assessment/Plan VTE Prophylaxis VTE Prophylaxis Intervention: SCD's Lines/Catheters IV [facility] Saline Lock Urinary Cath still in place: No Assessment/Plan Chief Complaint/Hosp Course Assessment/Plan: 62-year-old male with a history of diabetes hypertension CAD status post PCI with stent in 2012 and CHF with systolic dysfunction with EF of 40%, noncompliance who presented to the emergency department complaining of chest pain, s/p cardiac cath 10.30 notable for multivessel CAD, and sp CABG 11.3. 1. Chest pain/CABG -has ruled out for ACS - 2D echo last month with EF of 40%, again status post bypass surgery postop day # 6. -Continue telemetry monitoring, cont asa, BP control, lipid control. plavix as per cards -Follow-up cardiology and CTS recommendations 2. Acute on chronic CHF, systolic - BNP equals 880 on admission. Slowly improving. Chest ultrasound does show some pleural effusion however. -Continue Lasix PO and current cardiac medications -Monitor urine output, discuss with cardiology team about possible thoracentesis or continuing to monitor 3. History of CAD, s/p PCI with stent in 2012 -Continue cardiac meds -See #1 4. Insulin-dependent diabetes with hyperglycemia -sugars improved since admission. A1c equals 9.3 Continue aspart with meals, Hima, EFREN, consider survey analyst consult Problems: Subjective 24 Hr Interval Summary Free Text/Dictation Patient seen by cardiology team, no acute events overnight. Also worked with physical therapy team. Exam/Review of Systems Vital Signs Vitals Vital Signs Date Time Temp Pulse Resp B/P Pulse Ox O2 Delivery O2 Flow Rate FiO2 09/10/17 11:21 98.4 89 19 129/64 95 09/10/17 07:35 Nasal Cannula 09/09/17 20:01 4.0 Intake and Output 09/09/17 09/09/17 09/10/17 15:00 23:00 07:00 Intake Total 800 ml 420 ml Balance 800 ml 420 ml Exam General: Lying in bed, alert, no acute distress HEENT: NC/AT. pupils are equal. round NECK: s/p R IJ catheter. no stridor CV: RRR systolic murmur; no gallop or rubs. PULM: no wheezing or rhonchi. Chest: s/p sternotomy GI: SOFT, NT, ND, no rebound or guarding Extremity: trace B/L LE edema. no clubbing. Neuro: No focal deficits Psych: calm and pleasant Results Result Diagram: 09/10/17 0641 09/10/17 0641 Results 24 hrs Laboratory Tests Test 09/09/17 17:27 09/09/17 21:08 09/10/17 01:34 09/10/17 06:41 Bedside Glucose 126 241 H 162 White Blood Count 10.5 # Red Blood Count 3.05 L Hemoglobin 9.3 L Hematocrit 28.1 L Mean Corpuscular Volume 92.1 Mean Corpuscular Hemoglobin 30.5 Mean Corpuscular Hemoglobin Concent 33.1 Red Cell Distribution Width 13.3 Platelet Count 232 Mean Platelet Volume 11.6 H Neutrophils % 69.1 Lymphocytes % 16.8 Monocytes % 12.0 H Eosinophils % 1.0 Basophils % 0.4 Nucleated Red Blood Cells % 0.0 Neutrophils # 7.3 Lymphocytes # 1.8 Monocytes # 1.3 H Eosinophils # 0.1 Basophils # 0.0 Nucleated Red Blood Cells # 0.0 Sodium Level 133 L Potassium Level 4.2 Chloride Level 99 Carbon Dioxide Level 27 Anion Gap 11 Blood Urea Nitrogen 13 Creatinine 0.73 Glucose Level 178 Calcium Level 8.3 L Magnesium Level 1.9 Total Bilirubin 0.5 Direct Bilirubin 0.00 Indirect Bilirubin 0.5 Aspartate Amino Transf (AST/SGOT) 34 Alanine Aminotransferase (ALT/SGPT) 50 Alkaline Phosphatase 81 B-Type Natriuretic Peptide 2740 H Total Protein 6.3 Albumin 3.0 L Globulin 3.30 H Albumin/Globulin Ratio 0.90 Test 09/10/17 08:23 Bedside Glucose 219 Medications Medications Current Medications Lorazepam (Ativan) 0.5 mg Q8H PRN PO ANXIETY; Start 08/29/17 at 02:00 Ondansetron HCl (Zofran Inj) 4 mg Q6H PRN IV NAUSEA AND/OR VOMITING; Start at 02:00 Nitroglycerin (Nitroglycerin (Sl Tab) 0.4 Mg) 1 tab Q5M PRN SL CHEST PAIN Last administered on 08/29/17t 18:49; Admin Dose 1 TAB; Start 08/29/17 at 02:00 Acetaminophen (Tylenol Tab) 650 mg Q6H PRN PO PAIN LEVEL 1-3 OR FEVER Last administered on 09/05/17 05:29; Admin Dose 650 MG; Start 08/29/17 at 02:00 Miscellaneous Information 1 ea NOTE XX ; Start 08/29/17 at 10:30 Glucose (Glutose) 15 gm Q15M PRN PO DECREASED GLUCOSE; Start 08/29/17 at 10:30 Glucose (Glutose) 22.5 gm Q15M PRN PO DECREASED GLUCOSE; Start 08/29/17 at 10: 30 Dextrose (D50w Syringe) 25 ml Q15M PRN IV DECREASED GLUCOSE; Start 08/29/17 at 10:30 Dextrose (D50w Syringe) 50 ml Q15M PRN IV DECREASED GLUCOSE; Start 08/29/17 at 10:30 Glucagon (Glucagen) 1 mg Q15M PRN IM DECREASED GLUCOSE; Start 08/29/17 at 10: 30 Glucose (Glutose) 15 gm Q15M PRN BUCCAL DECREASED GLUCOSE; Start 08/29/17 at 10:30 Valsartan (Diovan) 160 mg BID PO Last administered on 09/10/17 08:21; Admin Dose 160 MG; Start 08/30/17 at 21:00 Furosemide (Lasix) 40 mg DAILY PO Last administered on 09/10/17 08:21; Admin Dose 40 MG; Start 08/31/17 at 09:00 Morphine Sulfate (morphine) 2 mg Q2H PRN IV FOR NON CARDIAC PAIN (4-10) Last administered on 09/07/17 15:06; Admin Dose 2 MG; Start 08/31/17 at 10:00 Atorvastatin Calcium (Lipitor) 80 mg DAILY@21 PO Last administered on 20:59; Admin Dose 80 MG; Start 09/01/17 at 21:00 Aspirin (Aspirin) 81 mg DAILY PO Last administered on 09/10/17 08:21; Admin Dose 81 MG; Start 09/02/17 at 09:00 Carvedilol (Coreg) 25 mg BID PO Last administered on 09/10/17 08:21; Admin Dose 25 MG; Start 09/03/17 at 09:00 Hydralazine HCl (Apresoline) 10 mg Q4H PRN IV SBP MORE THEN 160; Start at 06:30 Oxycodone/ Acetaminophen (Endocet (10/ 325)) 1 tab Q4H PRN PO PAIN Last administered on 09/09/17 21:00; Admin Dose 1 TAB; Start 09/06/17 at 09:00 Insulin Glargine (Lantus) 30 unit DAILY@08 SC Last administered on 09/10/17 08 :29; Admin Dose 30 UNIT; Start 09/07/17 at 08:00 Diagnostic Test (Pha) (Accu-Chek) 1 ea 02 XX ; Start 09/07/17 at 02:00 Diagnostic Test (Pha) 1 ea 1 ea 02 XX ; Start 09/07/17 at 02:00 Sodium Chloride (NS) 1,000 ml @ 75 mls/hr [id number] IV Last administered on 09/08 23:53; Admin Dose 75 MLS/HR; Start 09/08/17 at 23:41; Status Future Hold Furosemide (Lasix) 40 mg ONCE ONCE IV ; Start 09/10/17 at 15:00; Stop 09/10/17 at 15:01 RAFFAELE TOLENTINO Sep 10, 2017 12:00
[2017-09-10] MEDS ORDERED: FUROSEMIDE 40 MG INJ IV ONE (15:00)
[2017-09-10] MEDS: OXYCODONE/ACETAMINOPHEN (10/325) TAB PO PRN (15:52)
[2017-09-10] MEDS ORDERED: INSULIN GLARGINE [LANtus] 3 ML PEN SC ONE (16:00)
[2017-09-10] MEDS: LORAZEPAM 0.5 MG TAB PO PRN (17:50)
[2017-09-10] MEDS: ATORVASTATIN 80 MG TAB PO SCH (20:55)
[2017-09-11] VITALS (11 sets, daily range): BP systolic 117–151; BP diastolic 62–74; PULSE 69–75; RESP 18–20
[2017-09-11] MEDS: ACCU-CHEK XX SCH (02:00)
[2017-09-11 07:27] LABS: BASOPHILS % 0.3 % (0.0-2.0); EOSINOPHILS # 0.1 10^3/ul (0.0-0.5); EOSINOPHILS % 0.6 % (0.0-7.0); HEMATOCRIT 28.8 % (42.0-52.0); HEMOGLOBIN 9.6 g/dl (14.0-18.0); LYMPHOCYTES # 2.2 10^3/ul (0.8-2.9); LYMPHOCYTES % 17.6 % (15.0-51.0); MEAN CORPUSCULAR HEMOGLOBIN 30.4 pg (29.0-33.0); MEAN CORPUSCULAR HGB CONC 33.3 g/dl (32.0-37.0); MEAN CORPUSCULAR VOLUME 91.1 fl (82.0-101.0); MEAN PLATELET VOLUME 10.6 fl (7.4-10.4); MONOCYTE # 1.3 10^3/ul (0.3-0.9); NEUTROPHIL # 8.9 10^3/ul (1.6-7.5); NEUTROPHILS % 70.8 % (39.0-77.0); PLATELET COUNT 289 10^3/UL (140-415); RED BLOOD COUNT 3.16 10^6/ul (4.70-6.10); RED CELL DISTRIBUTION WIDTH 13.4 % (11.5-14.5); WHITE BLOOD COUNT 12.7 10^3/ul (4.8-10.8)
[2017-09-11] MEDS: INSULIN ASPART [NOVOLOG] 3 ML PEN SC SCH ×3 (07:44→11:56)
[2017-09-11 07:56] LABS: ALBUMIN 3.2 g/dl (3.3-4.9); ALBUMIN/GLOBULIN RATIO 0.91; BILIRUBIN,INDIRECT 0.6 mg/dl (0-1.1); BILIRUBIN,TOTAL 0.6 mg/dl (0.2-1.3); CALCIUM 8.6 mg/dl (8.4-10.2); CREATININE 0.76 mg/dl (0.61-1.24); MAGNESIUM 1.9 mg/dl (1.7-2.5); POTASSIUM 4.1 mmol/L (3.5-5.1); TOTAL PROTEIN 6.7 g/dl (6.1-8.1)
[2017-09-11] MEDS ORDERED: INSULIN GLARGINE [LANtus] 3 ML PEN SC SCH (08:00)
[2017-09-11] MEDS: FUROSEMIDE 40 MG TAB PO SCH (08:22)
[2017-09-11] MEDS: ASPIRIN 81 MG TAB PO SCH (08:22)
[2017-09-11] MEDS: VALSARTAN 160 MG TAB PO SCH (08:22)
--- NOTE | 2017-09-11 11:05 | PN ---
Date/Time of Note Date/Time of Note DATE: 09/11/17 TIME: 11:03 Assessment/Plan VTE Prophylaxis VTE Prophylaxis Intervention: SCD's Lines/Catheters IV [facility] Saline Lock Urinary Cath still in place: No Assessment/Plan Chief Complaint/Hosp Course Assessment/Plan: 62-year-old male with a history of diabetes hypertension CAD status post PCI with stent in 2012 and CHF with systolic dysfunction with EF of 40%, noncompliance who presented to the emergency department complaining of chest pain, s/p cardiac cath 10.30 notable for multivessel CAD, and sp CABG 11.3. 1. Chest pain/CABG -has ruled out for ACS - 2D echo last month with EF of 40%, again status post bypass surgery postop day # 7. -Continue telemetry monitoring, cont asa, BP control, lipid control. plavix as per cards -Follow-up cardiology and CTS recommendations 2. Acute on chronic CHF, systolic - BNP equals 880 on admission. Slowly improving. Chest ultrasound does show some pleural effusion. Patient on room air. -Continue Lasix PO and current cardiac medications -Monitor urine output, discuss with cardiology team about possible thoracentesis or continuing to monitor 3. History of CAD, s/p PCI with stent in 2012 -Continue cardiac meds -See #1 4. Insulin-dependent diabetes with hyperglycemia -sugars still somewhat elevated since the last 2 days. A1c equals 9.3 Continue aspart with meals, Levemir, ISS, consider educator senior clinical consult Problems: Subjective 24 Hr Interval Summary Free Text/Dictation No acute events overnight. Asking when he can go home. Exam/Review of Systems Vital Signs Vitals Vital Signs Date Time Temp Pulse Resp B/P Pulse Ox O2 Delivery O2 Flow Rate FiO2 09/11/17 11:01 98.1 84 19 117/62 93 09/11/17 08:38 3.0 09/10/17 20:00 Bag Valve Mask Intake and Output 09/10/17 09/10/17 09/11/17 15:00 23:00 07:00 Intake Total 850 ml 500 ml Balance 850 ml 500 ml Exam General: Lying in bed, alert, no acute distress HEENT: NC/AT. pupils are equal. round NECK: s/p R IJ catheter. no stridor CV: RRR systolic murmur; no gallop or rubs. PULM: no wheezing or rhonchi. Chest: s/p sternotomy GI: SOFT, NT, ND, no rebound or guarding Extremity: trace B/L LE edema. no clubbing. Neuro: No focal deficits Psych: calm and pleasant Results Result Diagram: 09/11/17 0709 09/11/17 0709 Results 24 hrs Laboratory Tests Test 09/10/17 12:08 09/10/17 17:05 09/10/17 20:41 09/11/17 07:09 Bedside Glucose 260 H 105 168 White Blood Count 12.7 #H Red Blood Count 3.16 L Hemoglobin 9.6 L Hematocrit 28.8 L Mean Corpuscular Volume 91.1 Mean Corpuscular Hemoglobin 30.4 Mean Corpuscular Hemoglobin Concent 33.3 Red Cell Distribution Width 13.4 Platelet Count 289 # Mean Platelet Volume 10.6 H Neutrophils % 70.8 Lymphocytes % 17.6 Monocytes % 10.0 Eosinophils % 0.6 Basophils % 0.3 Nucleated Red Blood Cells % 0.0 Neutrophils # 8.9 H Lymphocytes # 2.2 Monocytes # 1.3 H Eosinophils # 0.1 Basophils # 0.0 Nucleated Red Blood Cells # 0.0 Sodium Level 132 L Potassium Level 4.1 Chloride Level 96 L Carbon Dioxide Level 30 Anion Gap 10 Blood Urea Nitrogen 10 Creatinine 0.76 Glucose Level 178 Calcium Level 8.6 Magnesium Level 1.9 Total Bilirubin 0.6 Direct Bilirubin 0.00 Indirect Bilirubin 0.6 Aspartate Amino Transf (AST/SGOT) 35 Alanine Aminotransferase (ALT/SGPT) 54 Alkaline Phosphatase 81 B-Type Natriuretic Peptide 2860 H Total Protein 6.7 Albumin 3.2 L Globulin 3.50 H Albumin/Globulin Ratio 0.91 Test 09/11/17 07:40 Bedside Glucose 234 H Medications Medications Current Medications Ondansetron HCl (Zofran Inj) 4 mg Q6H PRN IV NAUSEA AND/OR VOMITING; Start at 02:00 Nitroglycerin (Nitroglycerin (Sl Tab) 0.4 Mg) 1 tab Q5M PRN SL CHEST PAIN Last administered on 08/29/17 18:49; Admin Dose 1 TAB; Start 08/29/17 at 02:00 Acetaminophen (Tylenol Tab) 650 mg Q6H PRN PO PAIN LEVEL 1-3 OR FEVER Last administered on 09/05/17 05:29; Admin Dose 650 MG; Start 08/29/17 at 02:00 Miscellaneous Information 1 ea NOTE XX ; Start 08/29/17 at 10:30 Glucose (Glutose) 15 gm Q15M PRN PO DECREASED GLUCOSE; Start 08/29/17 at 10:30 Glucose (Glutose) 22.5 gm Q15M PRN PO DECREASED GLUCOSE; Start 08/29/17 at 10: 30 Dextrose (D50w Syringe) 25 ml Q15M PRN IV DECREASED GLUCOSE; Start 08/29/17 at 10:30 Dextrose (D50w Syringe) 50 ml Q15M PRN IV DECREASED GLUCOSE; Start 08/29/17 at 10:30 Glucagon (Glucagen) 1 mg Q15M PRN IM DECREASED GLUCOSE; Start 08/29/17 at 10: 30 Glucose (Glutose) 15 gm Q15M PRN BUCCAL DECREASED GLUCOSE; Start 08/29/17 at 10:30 Valsartan (Diovan) 160 mg BID PO Last administered on 09/11/17 08:22; Admin Dose 160 MG; Start 08/30/17 at 21:00 Furosemide (Lasix) 40 mg DAILY PO Last administered on 09/11/17 08:22; Admin Dose 40 MG; Start 08/31/17 at 09:00 Morphine Sulfate (morphine) 2 mg Q2H PRN IV FOR NON CARDIAC PAIN (4-10) Last administered on 09/07/17 15:06; Admin Dose 2 MG; Start 08/31/17 at 10:00 Atorvastatin Calcium (Lipitor) 80 mg DAILY@21 PO Last administered on 20:55; Admin Dose 80 MG; Start 09/01/17 at 21:00 Aspirin (Aspirin) 81 mg DAILY PO Last administered on 09/11/17 08:22; Admin Dose 81 MG; Start 09/02/17 at 09:00 Carvedilol (Coreg) 25 mg BID PO Last administered on 09/11/17 08:23; Admin Dose 25 MG; Start 09/03/17 at 09:00 Hydralazine HCl (Apresoline) 10 mg Q4H PRN IV SBP MORE THEN 160; Start at 06:30 Oxycodone/ Acetaminophen (Endocet (10/ 325)) 1 tab Q4H PRN PO PAIN Last administered on 09/10/17 15:52; Admin Dose 1 TAB; Start 09/06/17 at 09:00 Diagnostic Test (Pha) 1 ea 1 ea 02 XX ; Start 09/07/17 at 02:00 Sodium Chloride (NS) 1,000 ml @ 75 mls/hr [id number] IV Last administered on 09/08 23:53; Admin Dose 75 MLS/HR; Start 09/08/17 at 23:41; Status Future Hold Lorazepam (Ativan) 0.5 mg Q6H PRN PO ANXIETY Last administered on 09/10/17 17: 50; Admin Dose 0.5 MG; Start 09/10/17 at 16:00 Insulin Glargine (Lantus) 42 unit DAILY@08 SC ; Start 09/12/17 at 08:00 RAFFAELE TOLENTINO Sep 11, 2017 11:05
[2017-09-11] MEDS ORDERED: INSULIN ASPART [NOVOLOG] 3 ML PEN SC SCH (11:50)
[2017-09-11] MEDS: LORAZEPAM 0.5 MG TAB PO PRN (12:33)
--- NOTE | 2017-09-11 15:44 | PDOCDIS ---
Discharge Instructions CONDITION Patient Condition: Stable HOME CARE INSTRUCTIONS: Special Diet: 2gm na ACTIVITY: Activity Restrictions: Slowly Increase Activity FOLLOW UP/APPOINTMENTS Follow-up Plan Please take your medications as prescribed, and see your doctor in the clinic in 1 week. RAFFAELE TOLENTINO Sep 11, 2017 15:44
[2017-09-11] MEDS ORDERED: VALS160T26 PO (15:51)
[2017-09-11] MEDS ORDERED: CARV25TA79 PO (15:51)
[2017-09-11] MEDS ORDERED: LORA-441 PO (15:51)
[2017-09-11] MEDS ORDERED: FURO40TA4 PO (15:51)
[2017-09-11] MEDS ORDERED: ATOR80TA75 PO (15:51)
--- NOTE | 2017-09-11 16:25 | CONS ---
Date/Time of Note Date/Time of Note DATE: 09/11/17 TIME: 16:24 Consult Date/Type/Reason Admit Date/Time Aug 28, 2017 at 23:44 Initial Consult Date 08/31/17 Type of Consultation: Card consult Subjective cardiology follow up note: S: d/w staff and rhythm was reviewed. d.w/ sister. pt with minimal anterior chest wall pain and tenderness. no PND but c/o sob. he was able to walk and wants to go home O: General: no acute distress HEENT: NC/AT. pupils are equal. round. NECK: s/p R IJ catheter. no stridor. CV: RRR. systolic murmur; no gallop or rubs. PULM: no wheezing . ,MILD left sided rhonchi. chest: s/p sternotomy. s/p chest tube. GI: SOFT, NT, ND, no rebound or guarding Extremity: trace B/L LE edema. no clubbing. neuro: awake and alert Ox 3 Psych: calm and pleasant rectal: deferred chest u./s small pleural effusion Objective Vital Signs Date Time Temp Pulse Resp B/P Pulse Ox O2 Delivery O2 Flow Rate FiO2 09/11/17 16:00 75 09/11/17 15:19 98.6 19 124/74 96 09/11/17 12:35 Nasal Cannula 3.0 Intake and Output 09/10/17 09/10/17 09/11/17 15:00 23:00 07:00 Intake Total 850 ml 500 ml Balance 850 ml 500 ml Results/Medications Result Diagram: 09/11/17 0709 09/11/17 0709 Results 24 hrs Laboratory Tests Test 09/10/17 17:05 09/10/17 20:41 09/11/17 07:09 09/11/17 07:40 Bedside Glucose 105 168 234 H White Blood Count 12.7 #H Red Blood Count 3.16 L Hemoglobin 9.6 L Hematocrit 28.8 L Mean Corpuscular Volume 91.1 Mean Corpuscular Hemoglobin 30.4 Mean Corpuscular Hemoglobin Concent 33.3 Red Cell Distribution Width 13.4 Platelet Count 289 # Mean Platelet Volume 10.6 H Neutrophils % 70.8 Lymphocytes % 17.6 Monocytes % 10.0 Eosinophils % 0.6 Basophils % 0.3 Nucleated Red Blood Cells % 0.0 Neutrophils # 8.9 H Lymphocytes # 2.2 Monocytes # 1.3 H Eosinophils # 0.1 Basophils # 0.0 Nucleated Red Blood Cells # 0.0 Sodium Level 132 L Potassium Level 4.1 Chloride Level 96 L Carbon Dioxide Level 30 Anion Gap 10 Blood Urea Nitrogen 10 Creatinine 0.76 Glucose Level 178 Calcium Level 8.6 Magnesium Level 1.9 Total Bilirubin 0.6 Direct Bilirubin 0.00 Indirect Bilirubin 0.6 Aspartate Amino Transf (AST/SGOT) 35 Alanine Aminotransferase (ALT/SGPT) 54 Alkaline Phosphatase 81 B-Type Natriuretic Peptide 2860 H Total Protein 6.7 Albumin 3.2 L Globulin 3.50 H Albumin/Globulin Ratio 0.91 Test 09/11/17 11:48 Bedside Glucose 215 Medications Current Medications Ondansetron HCl (Zofran Inj) 4 mg Q6H PRN IV NAUSEA AND/OR VOMITING; Start at 02:00 Nitroglycerin (Nitroglycerin (Sl Tab) 0.4 Mg) 1 tab Q5M PRN SL CHEST PAIN Last administered on 08/29/17 18:49; Admin Dose 1 TAB; Start 08/29/17 at 02:00 Acetaminophen (Tylenol Tab) 650 mg Q6H PRN PO PAIN LEVEL 1-3 OR FEVER Last administered on 09/05/17 05:29; Admin Dose 650 MG; Start 08/29/17 at 02:00 Miscellaneous Information 1 ea NOTE XX ; Start 08/29/17 at 10:30 Glucose (Glutose) 15 gm Q15M PRN PO DECREASED GLUCOSE; Start 08/29/17 at 10:30 Glucose (Glutose) 22.5 gm Q15M PRN PO DECREASED GLUCOSE; Start 08/29/17 at 10: 30 Dextrose (D50w Syringe) 25 ml Q15M PRN IV DECREASED GLUCOSE; Start 08/29/17 at 10:30 Dextrose (D50w Syringe) 50 ml Q15M PRN IV DECREASED GLUCOSE; Start 08/29/17 at 10:30 Glucagon (Glucagen) 1 mg Q15M PRN IM DECREASED GLUCOSE; Start 08/29/17 at 10: 30 Glucose (Glutose) 15 gm Q15M PRN BUCCAL DECREASED GLUCOSE; Start 08/29/17 at 10:30 Valsartan (Diovan) 160 mg BID PO Last administered on 09/11/17 08:22; Admin Dose 160 MG; Start 08/30/17 at 21:00 Furosemide (Lasix) 40 mg DAILY PO Last administered on 09/11/17 08:22; Admin Dose 40 MG; Start 08/31/17 at 09:00 Morphine Sulfate (morphine) 2 mg Q2H PRN IV FOR NON CARDIAC PAIN (4-10) Last administered on 09/07/17 15:06; Admin Dose 2 MG; Start 08/31/17 at 10:00 Atorvastatin Calcium (Lipitor) 80 mg DAILY@21 PO Last administered on 20:55; Admin Dose 80 MG; Start 09/01/17 at 21:00 Aspirin (Aspirin) 81 mg DAILY PO Last administered on 09/11/17 08:22; Admin Dose 81 MG; Start 09/02/17 at 09:00 Carvedilol (Coreg) 25 mg BID PO Last administered on 09/11/17 08:23; Admin Dose 25 MG; Start 09/03/17 at 09:00 Hydralazine HCl (Apresoline) 10 mg Q4H PRN IV SBP MORE THEN 160; Start at 06:30 Oxycodone/ Acetaminophen (Endocet (10/ 325)) 1 tab Q4H PRN PO PAIN Last administered on 09/10/17 15:52; Admin Dose 1 TAB; Start 09/06/17 at 09:00 Diagnostic Test (Pha) 1 ea 1 ea 02 XX ; Start 09/07/17 at 02:00 Sodium Chloride (NS) 1,000 ml @ 75 mls/hr [id number] IV Last administered on 09/08 23:53; Admin Dose 75 MLS/HR; Start 09/08/17 at 23:41; Status Future Hold Lorazepam (Ativan) 0.5 mg Q6H PRN PO ANXIETY Last administered on 09/11/17 12 :33; Admin Dose 0.5 MG; Start 09/10/17 at 16:00 Insulin Glargine (Lantus) 42 unit DAILY@08 SC ; Start 09/12/17 at 08:00 Assessment/Plan Chief Complaint/Hosp Course 1. ACS: 2. Multivessel CAD: S/P CABG 3 vessel. 09/04/17 3. ISCHEMIC CARDIOMYOPATHY 4. DM 5. HTN 6. CHF: due to systolic heart failure and chronic and stable now 7. post op resp failure:extubated now 8. post op pleural effusion : small now Rec cont post op care Cont ASA COREG ARB STATIN cont po lasix for now. off of isordil now that pt already had CABG and no angina CXR reviewed. F/U with me in 1-2 weeks after replace lytes prn THANK YOU. RACHEL CALLAHAN MD [facility] Problems: RACHEL CALLAHAN MD Sep 11, 2017 16:25
--- NOTE | 2017-09-11 19:51 | DS ---
DATE OF ADMISSION: 08/28/2017 DATE OF DISCHARGE: 09/11/2017 HISTORY OF PRESENT ILLNESS: This is a 62-year-old male, originally admitted on August 29, 2017,and being discharged home on September 11, 2017. The patient came in with chest pain. He was seen by multiple specialists during this hospital stay, including cardiology team, cardiothoracic surgery team, physical therapy team. The patient was found to be ruled out for acute coronary syndrome; however, had 2D echocardiogram performed a month prior to admission that showed ejection fraction of 40 percent, but the patient underwent cardiac catheterization. The patient was found with multi-vessel coronary artery disease, and recommendations were made for coronary artery bypass grafting. This was performed on September 04, 2017. The patient had an operation, SHAW to the LAD, SVG to the RI, SVG to the PDA as well. The patient tolerated the procedure well. Afterwards, he continued on physical therapy and cardiac rehab. Vital signs were monitored very carefully. Eventually, the patient was transferred out of intensive care unit. The patient had some adjustments made to the insulin regimen as sugars were found to be slightly elevated. The patient was found with hemoglobin A1c of 9.3. HOSPITAL COURSE: Over the course of hospital stay, patient worked with physical therapy, was able to ambulate, did require the assistance of a front-wheeled walker. Vital signs remained stable. Sugars improved. Patient continued on cardiac medications as well, and after getting clearance from the consulting teams, the patient will be discharged home today in improved condition. DISCHARGE MEDICATIONS/INSTRUCTIONS: He will be sent with the following medications: 1. Atorvastatin 80 mg daily. 2. Coreg 25 mg b.i.d. 3. Lasix 40 mg daily. 4. Ativan 0.5 mg p.o. q.6h. p.r.n. 5. Valsartan 160 mg b.i.d. 6. Aspirin 81 mg daily. 7. Lantus 20 units subcutaneously daily. 8. Metformin 500 mg b.i.d. 9. Nitroglycerin 0.4 mg sublingual ever 5 minutes p.r.n. Patient to follow up with cardiology team and regular doctor in clinic in the next 1-2 weeks. FINAL DIAGNOSES: 1. Chest pain. Ruled out for acute coronary syndrome, but found multivessel coronary artery disease, status post coronary artery bypass grafting (CABG). 2. History of cardiomyopathy with ejection fraction of 40 percent with acute on chronic congestive heart failure, now improving. 3. History of prior coronary artery disease, status post PCI with stent placement 2012. 4. Insulin-dependent diabetes, hemoglobin A1c 9.3. Now sugars improved. TIME SPENT: Time spent discharging the patient, 50 minutes. Dictated By: Aramis Moody MD /nunu/radha /Document#: [id number]
[2017-09-12] MEDS ORDERED: INSULIN GLARGINE [LANtus] 3 ML PEN SC SCH (08:00)
== END 2017-09-11 16:15 | disposition home or self-care (01) | DRG 233 ==
LOC: E/R 21:17 → TEL 23:44 → ICU 08-31 09:40 → UNDODISIN 08-31 11:07 → TEL 08-31 11:54 → ICU 09-04 13:34 → TEL 09-08 16:06
PROVIDERS: ADMIT Internal Medicine; ATTEND Internal Medicine
PROC: B2011ZZ Plain Radiography of Multiple Coronary Arteries using Low Osmolar Contrast (ICD-10-PCS; 2017-08-31)
PROC: B2051ZZ Plain Radiography of Left Heart using Low Osmolar Contrast (ICD-10-PCS; 2017-08-31)
PROC: 4A023N7 Measurement of Cardiac Sampling and Pressure, Left Heart, Percutaneous Approach (ICD-10-PCS; principal; 2017-08-31 09:00)
PROC: 02100A9 Bypass Coronary Artery, One Artery from Left Internal Mammary with Autologous Arterial Tissue, Open Approach (ICD-10-PCS; 2017-09-04)
PROC: 021109W Bypass Coronary Artery, Two Arteries from Aorta with Autologous Venous Tissue, Open Approach (ICD-10-PCS; 2017-09-04)
PROC: 06BQ0ZZ Excision of Left Saphenous Vein, Open Approach (ICD-10-PCS; 2017-09-04)
PROC: 5A1221Z Performance of Cardiac Output, Continuous (ICD-10-PCS; 2017-09-04)
DX: I25.110 Atherosclerotic heart disease of native coronary artery with unstable angina pectoris (principal); I50.23 Acute on chronic systolic (congestive) heart failure; J95.821 Acute postprocedural respiratory failure; J90 Pleural effusion, not elsewhere classified; I11.0 Hypertensive heart disease with heart failure; Z79.02 Long term (current) use of antithrombotics/antiplatelets; Z95.5 Presence of coronary angioplasty implant and graft; E11.65 Type 2 diabetes mellitus with hyperglycemia; Z79.4 Long term (current) use of insulin; I25.5 Ischemic cardiomyopathy; Z91.14 Patient's other noncompliance with medication regimen
CPT/HCPCS: 36415; 36600; 71010; 76604; 80048; 80053; 80061; 80162; 82550; 82553; 82803; 82962; 83036; 83690; 83735; 83880; 84100; 84439; 84443; 84484; 85025; 85610; 85730; 86850; 86900; 86901; 86920; 87081; 93005; 93312; 93325; 93458; 93880; 94002; 94770; 96374; 97116; 97162; 97530; J1940; C1887; J0171; J0360; J0583; J0610; J0690; J1200; J1265; J1644; J1650; J1815; J2001; J2250; J2260; J2270; J2370; J2440; J2720; J3010; J3370; J3475; J3480; J7030; J7070; P9047; Q9967

== ENCOUNTER 2017-11-13 12:54 | Inpatient (IN) | END 2017-11-15 15:15 | disposition home or self-care (01) | DRG 293 ==

== ENCOUNTER 2018-01-19 20:25 | Emergency (ER) | END 2018-01-19 23:28 | disposition left against medical advice (07) ==

== ENCOUNTER 2018-01-21 12:20 | Inpatient (IN) | END 2018-02-01 16:40 | disposition home or self-care (01) | DRG 271 ==

== ENCOUNTER 2018-02-25 18:37 | Inpatient (IN) | END 2018-03-11 14:00 | disposition home health service (06) | DRG 253 ==

== ENCOUNTER 2018-04-12 14:09 | Inpatient (IN) | END 2018-04-18 14:28 | disposition home or self-care (01) | DRG 253 ==

== ENCOUNTER 2018-05-22 23:05 | Emergency (ER) | END 2018-05-23 02:34 | disposition home or self-care (01) ==

== ENCOUNTER 2018-06-03 18:50 | Inpatient (IN) | END 2018-06-05 16:46 | disposition home or self-care (01) | DRG 313 ==

== ENCOUNTER 2018-06-22 11:41 | Inpatient (IN) | END 2018-06-23 10:00 | disposition home or self-care (01) | DRG 287 ==

== ENCOUNTER 2018-09-23 13:05 | Inpatient (IN) | END 2018-09-25 11:30 | disposition home or self-care (01) | DRG 280 ==

== ENCOUNTER 2018-11-11 09:00 | Observation (INO) | payer MEDICAID ==
[~2018-11-11] VITALS: Ht 167.6 cm; Wt 100.9 kg
[2018-11-11 09:00] VITALS: Ht 167.6 cm; Wt 100.9 kg
[~2018-11-11 09:00] MED LIST changes: +ALBU2.5V3 NEB; +ALBU8.5H8 INH; +ASPI-535 PO; -ASPI81TA3 PO; +ATOR-2 PO; -ATOR20TA17 PO; -CLOP75TA19 PO; +CLOP75TA28 PO; +FAMO20TA18 PO; +FURO40SO PO; -FURO40TA4 PO; +INSU100I12 SQ; +LORA0.5T PO; +LOSA50TA14 PO; +METF100010 PO; -METF500T4 PO; -NITR0.4T32 SL; +NITR0.4T39 SL; -PANT40TA3 PO; +TRAM50TA PO; +UDMOM PO; -VALS80TA2 PO
[2018-11-11] MEDS ORDERED: NITROGLYCERIN 2% 1 GM OINT PKT TD STA (09:03)
[2018-11-11] MEDS ORDERED: ASPIRIN 81 MG TAB PO STA (09:03)
[2018-11-11] MEDS ORDERED: NITROGLYCERIN (SL) 0.4 MG TAB SL PRN ×2 (09:30→12:00)
[2018-11-11] MEDS ORDERED: ACETAMINOPHEN 325 MG TAB PO PRN ×2 (12:00→12:30)
[2018-11-11] MEDS ORDERED: ONDANSETRON 4 MG INJ IV PRN ×2 (12:00→12:30)
[2018-11-11] MEDS ORDERED: DOCUSATE SODIUM 100 MG CAP PO PRN (12:30)
[2018-11-11] MEDS ORDERED: NACL 0.9% 3 ML SYG IV SCH (12:30)
[2018-11-11] MEDS ORDERED: morphine 2 MG INJ IV PRN (12:30)
[2018-11-11] MEDS ORDERED: LABETALOL HCL 20MG INJ IV ONE (13:00)
--- NOTE | 2018-11-11 13:13 | ERD ---
ER Documentation Chief Complaint Chief Complaint Patient JOLENE with complaint of Chest pain since this am HPI Patient is a 63-year-old male with coronary disease, hypertension, and diabetes who presents with chest pain. He started at 5 AM with chest pain which is 4 out of 10. He was coughing up blood. He was given aspirin and nitroglycerin by paramedics. He was brought in by ambulance. This took away his pain. He said the pain is left-sided. Upon review of old medical records the patient has multiple visits to the ER with admissions. Dr. Borges is his sidehand. ROS All systems reviewed and are negative except as per history of present illness. Medications Home Meds Active Scripts Carvedilol* (Carvedilol*) 6.25 Mg Tablet, 6.25 MG PO BID for 30 Days, #60 TAB Prov:KAYCEE SWARTZ MD 06/22/18 Clopidogrel Bisulfate (Clopidogrel) 75 Mg Tablet, 75 MG PO DAILY for 30 Days, #30 TAB Prov:KAYCEE SWARTZ MD 06/22/18 Insulin Lispro (Humalog Kwikpen U-100) 100 Unit/1 Ml Insuln.pen, 9 UNITS SQ TIDAC for 30 Days, #1 EA Prov:KAYCEE SWARTZ MD 06/22/18 Losartan Potassium* (Losartan Potassium*) 50 Mg Tablet, 50 MG PO BID for 30 Days, #60 TAB Prov:KAYCEE SWARTZ MD 06/21/18 Albuterol Sulfate* (Proair HFA*) 8.5 Gm Hfa.aer.ad, 2 PUFF INH Q4 for SHORTNESS OF BREATH, #1 INHALER Prov:TASHA WATERS [employer] ESC[employer]IVER 11/15/17 Reported Medications Metformin Hcl* (Metformin Hcl*) 1,000 Mg Tablet, 1000 MG PO WITH LUNCH DINNER, #30 TAB 09/23/18 Tramadol Hcl* (Ultram*) 50 Mg Tablet, 50 MG PO Q6H PRN for PAIN, TAB 06/19/18 Nitroglycerin* (Nitrostat*) 0.4 Mg Tab.subl, 0.4 MG SL Q5MIN PRN for CHEST PAIN, BOTTLE 06/19/18 Magnesium Hydroxide* (Naylor' MOM*) 30 Ml Susp, 30 ML PO DAILY, ML 06/19/18 Lorazepam* (Lorazepam*) 0.5 Mg Tablet, 0.5 MG PO Q6 PRN for ANXIETY, TAB 06/19/18 Furosemide* (Furosemide*) 40 Mg/5 Ml Solution, 40 MG PO DAILY, #150 ML 06/19/18 Famotidine* (Famotidine*) 20 Mg Tablet, 20 MG PO DAILY, #30 TAB 06/19/18 Atorvastatin* (Atorvastatin*) 80 Mg Tablet, 80 MG PO QHS, #30 TAB 06/19/18 Aspirin Ec (Aspir 81) 81 Mg Tablet.dr, 81 MG PO DAILY, #30 TAB 06/19/18 Insulin Glargine* (Lantus*) 100 Unit/Ml Soln, 45 UNIT SC QHS, #1 VIAL 06/19/18 Albuterol Sulfate* (Albuterol Sulfate* Neb) 0.083%-3 Ml Neb, 2.5 MG NEB Q3H PRN for WHEEZING AND SOB, #30 VIAL 06/19/18 Allergies Allergies: Coded Allergies: No Known Allergy (Unverified , 11/11/18) PMhx/Soc History of Surgery: No Anesthesia Reaction: No Hx Neurological Disorder: No Hx Respiratory Disorders: No Hx Cardiac Disorders: Yes (Cabg, stents placed) Hx Psychiatric Problems: No Hx Miscellaneous Medical Probl: Yes (Cardiac) Hx Alcohol Use: Yes ([place] Cognac on occasion) Hx Substance Use: No Hx Tobacco Use: Yes Smoking Status: Former smoker FmHx Family History: diabetes Physical Exam Vitals Vital Signs Date Temp Pulse Resp B/P (MAP) Pulse Ox O2 O2 Flow FiO2 Time Delivery Rate 11/11/18 98.3 65 20 134/71 99 Nasal 10:00 (92) Cannula 11/11/18 98.3 72 20 128/70 95 09:00 (89) 11/11/18 Nasal 09:00 Cannula Physical Exam Const: No acute distress Head: Atraumatic Eyes: Normal Conjunctiva ENT: Normal External Ears, Nose and Mouth. Neck: Full range of motion. No meningismus. Resp: Clear to auscultation bilaterally Cardio: Regular rate and rhythm, no murmurs Abd: Soft, non tender, non distended. Normal bowel sounds Skin: No petechiae or rashes Back: No midline or flank tenderness Ext: No cyanosis, or edema Neur: Awake and alert Psych: Normal Mood and Affect Result Diagram: 11/11/1892411/11/1825 Results 24 hrs Laboratory Tests Test 11/11/18 09:25 White Blood Count 8.2 10^3/ul Red Blood Count 3.92 10^6/ul Hemoglobin 11.0 g/dl Hematocrit 35.0 % Mean Corpuscular Volume 89.3 fl Mean Corpuscular Hemoglobin 28.1 pg Mean Corpuscular Hemoglobin Concent 31.4 g/dl Red Cell Distribution Width 13.3 % Platelet Count 196 10^3/UL Mean Platelet Volume 11.9 fl Immature Granulocytes % 0.200 % Neutrophils % 67.3 % Lymphocytes % 24.4 % Monocytes % 7.0 % Eosinophils % 0.6 % Basophils % 0.5 % Nucleated Red Blood Cells % 0.0 /100WBC Immature Granulocytes # 0.020 10^3/ul Neutrophils # 5.5 10^3/ul Lymphocytes # 2.0 10^3/ul Monocytes # 0.6 10^3/ul Eosinophils # 0.1 10^3/ul Basophils # 0.0 10^3/ul Nucleated Red Blood Cells # 0.0 10^3/ul Sodium Level 141 mmol/L Potassium Level 4.1 mmol/L Chloride Level 107 mmol/L Carbon Dioxide Level 24 mmol/L Anion Gap 10 Blood Urea Nitrogen 13 mg/dl Creatinine 0.85 mg/dl Est Glomerular Filtrat Rate mL/min > 60 mL/min Glucose Level 199 mg/dl Calcium Level 8.9 mg/dl Troponin I < 0.012 ng/ml Current Medications Medications Dose Sig/Masha Start Time Status Last (Trade) Ordered Route PRN Stop Time Admin Dose Reason Admin Aspirin 162 mg ONCE STAT 11/11/18 DC 11/11/18 (Aspirin) PO 09:03 09:20 11/11/18 09:04 1 inch ONCE STAT 11/11/18 DC 11/11/18 Nitroglycerin TD 09:03 09:21 11/11/18 09:04 (Nitroglyceri n 2% Oint) 1 tab Q5M UP TO 3 11/11/18 11/11/18 Nitroglycerin DOSES PRN 09:30 09:20 SL CHEST (Nitroglyceri PAIN n (Sl Tab) 0.4 Mg) Ondansetron 4 mg ER BRIDGE 11/11/18 DC HCl (Zofran PRN IV 12:00 Inj) NAUSEA AND/OR 11/11/18 12:13 VOMITING 650 mg ER BRIDGE 11/11/18 DC Acetaminophen PRN PO MILD 12:00 (Tylenol PAIN(1-3)OR 11/11/18 12:13 Tab) ELEVATED TEMP Aspirin 81 mg DAILY PO 11/12/18 (Halfprin) 09:00 80 mg QHS PO 11/11/18 Atorvastatin 21:00 Calcium (Lipitor) Carvedilol 6.25 mg BID PO 11/11/18 (Coreg) 21:00 Clopidogrel 75 mg DAILY PO 11/12/18 Bisulfate 09:00 (plaVIX) Famotidine 20 mg DAILY PO 11/12/18 (Pepcid) 09:00 Insulin 45 units QHS SC 11/11/18 Glargine 21:00 (Lantus) Losartan 50 mg BID PO 11/11/18 Potassium 21:00 (Cozaar) Magnesium 30 ml DAILY PO 11/12/18 Hydroxide 09:00 (Milk Of Mag) 1 tab EVERY 5 MIN 11/11/18 Nitroglycerin PRN SL 12:00 CHEST PAIN (Nitroglyceri n (Sl Tab) 0.4 Mg) Insulin 9 unit AC MEALS 11/11/18 Aspart SC 12:30 (Novolog Insulin Pen) IV Flush 3 ml PER 11/11/18 (NS 3 ml) PROTOCOL IV 12:30 Ondansetron 4 mg Q6H PRN 11/11/18 HCl (Zofran IV NAUSEA 12:30 Inj) AND/OR VOMITING 650 mg Q6H PRN 11/11/18 Acetaminophen PO PAIN 12:30 (Tylenol LEVEL 1-3 OR Tab) FEVER Morphine 2 mg Q4H PRN 11/11/18 Sulfate IV SEVERE 12:30 (morphine) PAIN LEVEL 7-10 Docusate 100 mg Q12H PRN 11/11/18 Sodium PO 12:30 (Colace) CONSTIPATION Labetalol 20 mg ONCE ONCE 11/11/18 DC 11/11/18 HCl IV 13:00 13:02 (Labetalol) 11/11/18 13:01 Alprazolam 0.5 mg Q12H PRN 11/11/18 (Xanax) PO 13:30 AGITATION/ANX IETY Procedures/MDM EKG #1 read by me: Rate/Rhythm: Regular rate and rhythm at a normal rate Intervals: Normal Impression: Flipped T waves in the anterior and lateral leads EKG #2 read by me: Rate/Rhythm: Regular rate and rhythm at a normal rate Intervals: Normal Impression: Flipped T waves in the anterior and lateral leads Chest x-ray read by radiology. Patient is a 63-year-old male with multiple risk factors who presents with chest pain. I am concerned for possible acute coronary syndrome. 2 EKGs were abnormal but similar. Initial troponin is negative. The patient will be admitted to the care of the panel team to a telemetry observation bed. Departure Diagnosis: Primary Impression: Chest pain Chest pain type: unspecified Qualified Codes: R07.9 - Chest pain, unspecified Condition: KEVIN Lizama MD Nov 11, 2018 13:13
[2018-11-11] MEDS: ALPRAZOLAM 0.25 MG TAB PO PRN (13:23)
[2018-11-11] MEDS ORDERED: OXYC-279 PO (13:31)
[2018-11-11 13:44] VITALS: PULSE 59
[2018-11-11] MEDS: INSULIN ASPART [NOVOLOG] 3 ML PEN SC SCH ×4 (13:47→20:26)
[2018-11-11 14:18] VITALS: BP 136/67; PULSE 59; RESP 20
[2018-11-11] MEDS ORDERED: ENOXAPARIN 40 MG/0.4 ML SYG SC SCH (15:30)
--- NOTE | 2018-11-11 15:39 | HP ---
Date/Time of Note Date/Time of Note DATE: 11/11/18 TIME: 15:21 Assessment/Plan VTE Prophylaxis SCD applied (from Nsg): Yes Pharmacological prophylaxis: LMWH Lines/Catheters IV Catheter Type (from Nrsg): Saline Lock Urinary Cath still in place: No Assessment/Plan Hospital Course SUBJECTIVE: Lying in bed comfortably. Denies any chest pain, palpitation or other discomfort. OBJECTIVE: Vital signs-see below PHYSICAL EXAM: Constitutional: Well-developed, adequately built, lying in bed comfortably. Psych: nl mood/affect, no complaints Head: atraumatic, normocephalic Eyes: nl conjunctiva, nl sclera ENMT: mucosa pink and moist, nl external ears & nose Neck: non-tender, supple Respiratory: clear to auscultation, normal air movement Cardiovascular: nl pulses, regular rate and rhythm Gastrointestinal: non-tender, soft, bowel sounds active in all 4 quadrants. Musculoskeletal/extremities: nl extremities to inspection, motor strength equal bilaterally, no focal deficit. Normal pulses,no cyanosis, no edema. Neurological: Alert oriented 3,nl speech, nl strength Skin: nl turgor ASSESSMENT/PLAN: 63-year-old male with CHF, ischemic cardiomyopathy, CAD/CABG, multiple PCI's, diabetes, presented to emergency room with sudden onset of chest pain without radiation woke him up from bed at 5:00 this morning. 1. Chest pain, rule out acute coronary syndrome. -Serial troponin, EKG -Aspirin prophylaxis -PRN nitro, PRN morphine, O2 if indicated -Cardiology eval 2. Acute on chronic systolic and diastolic congestive heart failure. -Euvolemic and exam. Chest x-ray noted. Will give 20 mg IV Lasix twice daily -Resume beta-blockers 3. Ischemic cardiomyopathy -Continue outpatient medical management including beta-blockers/ARB 4. Coronary artery disease, status post CABG -Continue DAPT/statin 5. DMII -Resume home insulin regimen. Hold metformin. We will add Accu-Cheks/ISS -A1c 6. Hypercholesterolemia -Resume statin. Obtain lipid panel DVT prophylaxis: Subcu heparin PUD prophylaxis: Not indicated CODE STATUS: Full code Diet: Carbohydrate controlled/low-cholesterol diet. Rest of the management depend on hospital course and [place]'s recommendations. Approximately 60 m spent on this history and physical. Patient is an evaluation with Dr. Martel. Result Diagram: 11/11/1825 11/11/1825 Results 24hrs Laboratory Tests Test 11/11/18 09:25 11/11/18 13:25 White Blood Count 8.2 Red Blood Count 3.92 L Hemoglobin 11.0 L Hematocrit 35.0 L Mean Corpuscular Volume 89.3 Mean Corpuscular Hemoglobin 28.1 L Mean Corpuscular Hemoglobin Concent 31.4 L Red Cell Distribution Width 13.3 Platelet Count 196 Mean Platelet Volume 11.9 H Immature Granulocytes % 0.200 Neutrophils % 67.3 Lymphocytes % 24.4 Monocytes % 7.0 Eosinophils % 0.6 Basophils % 0.5 Nucleated Red Blood Cells % 0.0 Immature Granulocytes # 0.020 Neutrophils # 5.5 Lymphocytes # 2.0 Monocytes # 0.6 Eosinophils # 0.1 Basophils # 0.0 Nucleated Red Blood Cells # 0.0 Sodium Level 141 Potassium Level 4.1 Chloride Level 107 Carbon Dioxide Level 24 Anion Gap 10 Blood Urea Nitrogen 13 Creatinine 0.85 Est Glomerular Filtrat Rate mL/min > 60 Glucose Level 199 Calcium Level 8.9 Troponin I < 0.012 Bedside Glucose 125 HPI/ROS Admit Date/Time Admit Date/Time Nov 11, 2018 at 11:44 Hx of Present Illness This is a 63-year-old male with a history of hypertension, congestive heart failure, coronary artery disease, CABG, multiple PCI's, multiple PCI, CABG, cardiomyopathy, type 2 diabetes, hypercholesteremia, who was brought in for swapnil st pain which woke him up from bed at 5:00 this morning. Patient denied any radiation of pain. He denied palpitation, diaphoresis, nausea, vomiting, abdominal pain, loss of consciousness, dizziness, numbness, tingling, speech difficulties, vision changes or other constitutional symptoms. Apparently, patient had cardiac workup [facility] at [facility] in June 2018 when he presented with similar symptoms, found to have mild abnormal troponin for which thought to be demand ischemia secondary to CHF/hypertension/CAD. Patient had cardiology workup and had a stress test at that time which showed partially reversible defect inferior wall consistent with severe ischemia with small anteroseptal reversible defect. Patient was sent on maximal medical management at that time. In ER, initial labs showed unremarkable except for hemoglobin 11.0, hematocrit 35.0 and blood sugar 199. Initial troponin negative. Stable vital signs. Chest x-ray showed pulmonary vascular congestion with mild cardiomegaly. In ER, patient was given aspirin 162 mg and nitro patch. Patient was then admitted for further evaluation. ROS A 12 point review of system was assessed and is negative other than what is mentioned in HPI. PMH/Family/Social Past Medical History See HPI Medications Current Medications Nitroglycerin (Nitroglycerin (Sl Tab) 0.4 Mg) 1 tab Q5M UP TO 3 DOSES PRN SL CHEST PAIN Last administered on 11/11/18at 09:20; Admin Dose 1 TAB; Start 11/11/18 at 09:30 Aspirin (Halfprin) 81 mg DAILY PO ; Start 11/12/18 at 09:00 Atorvastatin Calcium (Lipitor) 80 mg QHS PO ; Start 11/11/18 at 21:00 Carvedilol (Coreg) 6.25 mg BID PO ; Start 11/11/18 at 21:00 Clopidogrel Bisulfate (plaVIX) 75 mg DAILY PO ; Start 11/12/18 at 09:00 Famotidine (Pepcid) 20 mg DAILY PO ; Start 11/12/18 at 09:00 Insulin Glargine (Lantus) 45 units QHS SC ; Start 11/11/18 at 21:00 Losartan Potassium (Cozaar) 50 mg BID PO ; Start 11/11/18 at 21:00 Magnesium Hydroxide (Milk Of Mag) 30 ml DAILY PO ; Start 11/12/18 at 09:00 Nitroglycerin (Nitroglycerin (Sl Tab) 0.4 Mg) 1 tab EVERY 5 MIN PRN SL CHEST PAIN; Start 11/11/18 at 12:00 Insulin Aspart (Novolog Insulin Pen) 9 unit AC MEALS SC ; Start 11/11/18 at 12:30 IV Flush (NS 3 ml) 3 ml PER PROTOCOL IV ; Start 11/11/18 at 12:30 Ondansetron HCl (Zofran Inj) 4 mg Q6H PRN IV NAUSEA AND/OR VOMITING; Start 11/11/18 at 12:30 Acetaminophen (Tylenol Tab) 650 mg Q6H PRN PO PAIN LEVEL 1-3 OR FEVER; Start 11/11/18 at 12:30 Morphine Sulfate (morphine) 2 mg Q4H PRN IV SEVERE PAIN LEVEL 7-10; Start 11/11/18 at 12:30 Docusate Sodium (Colace) 100 mg Q12H PRN PO CONSTIPATION; Start 11/11/18 at 12:30 Alprazolam (Xanax) 0.5 mg Q12H PRN PO AGITATION/ANXIETY Last administered on 11/11/18at 13:23; Admin Dose 0.5 MG; Start 11/11/18 at 13:30 Furosemide (Lasix) 20 mg BID DIURETICS PO ; Start 11/11/18 at 18:00 Coded Allergies: No Known Allergy (Unverified , 11/11/18) Past Surgical History See HPI Past Surgical Hx: angioplasty, other Family History Significant Family History: no pertinent family hx Social History Former smoker. No history of alcohol or substance abuse history. Smoking Status: Former smoker Exam/Review of Systems Vital Signs Vitals Vital Signs Date Temp Pulse Resp B/P (MAP) Pulse Ox O2 O2 Flow FiO2 Time Delivery Rate 11/11/18 98.4 59 20 136/67 90 14:18 (90) 11/11/18 Nasal 13:32 Cannula RENATA JOHNSTON NP Nov 11, 2018 15:32
[2018-11-11 16:00] VITALS: PULSE 59
[2018-11-11] MEDS ORDERED: GLUCOSE GEL 15 GRAM TUBE BUCCAL PRN (16:00)
[2018-11-11] MEDS ORDERED: GLUCAGON 1 MG INJ IM PRN (16:00)
[2018-11-11] MEDS ORDERED: GLUCOSE GEL 15 GRAM TUBE PO PRN ×2 (16:00)
[2018-11-11] MEDS ORDERED: DEXTROSE 50% 50 ML SYRINGE IV PRN ×2 (16:00)
[2018-11-11] MEDS: FUROSEMIDE 20 MG TAB PO SCH (17:19)
[2018-11-11 20:00] VITALS: PULSE 69
[2018-11-11] MEDS: LOSARTAN 50 MG TAB PO SCH (20:15)
[2018-11-11 20:18] VITALS: BP 146/65; PULSE 67; RESP 19
[2018-11-11] MEDS: HEPARIN 5,000 UNIT/1 ML VIAL SC SCH (20:26)
[2018-11-11] MEDS ORDERED: INSULIN GLARGINE [LANTus] (100 UNITS/ML) SYG SC SCH (21:00)
[2018-11-11] MEDS ORDERED: LORAZEPAM 0.5 MG TAB PO ONE (21:00)
[2018-11-11] MEDS ORDERED: INSULIN ASPART [NOVOLOG] 3 ML PEN SC ONE (21:00)
[2018-11-11] MEDS ORDERED: ATORVASTATIN 80 MG TAB PO SCH (21:00)
[2018-11-11 23:56] VITALS: BP 180/86; PULSE 67; RESP 20
[2018-11-12] VITALS (9 sets, daily range): BP systolic 151–178; BP diastolic 69–91; PULSE 70–77; RESP 19–20
[2018-11-12] MEDS: hydrALAzine 20 MG INJ IV PRN ×2 (00:14→04:21)
[2018-11-12] MEDS: ALPRAZOLAM 0.25 MG TAB PO PRN (01:45)
[2018-11-12] MEDS ORDERED: ACCU-CHEK XX SCH (02:00)
[2018-11-12] MEDS: FUROSEMIDE 20 MG TAB PO SCH (06:06)
[2018-11-12] MEDS: INSULIN ASPART [NOVOLOG] 3 ML PEN SC SCH ×5 (07:25→12:05)
[2018-11-12] MEDS: ASPIRIN (EC) 81 MG TAB PO SCH ×2 (07:26→08:18)
[2018-11-12] MEDS: LOSARTAN 50 MG TAB PO SCH (08:08)
[2018-11-12] MEDS: HEPARIN 5,000 UNIT/1 ML VIAL SC SCH (08:17)
[2018-11-12] MEDS ORDERED: MAGNESIUM HYDROXIDE 30ML CUP PO SCH (09:00)
[2018-11-12] MEDS ORDERED: CLOPIDOGREL 75 MG TAB PO SCH (09:00)
[2018-11-12] MEDS ORDERED: FAMOTIDINE 20 MG TAB PO SCH (09:00)
--- NOTE | 2018-11-12 10:54 | PN ---
Date/Time of Note Date/Time of Note DATE: 11/12/18 TIME: 10:53 Assessment/Plan VTE Prophylaxis Risk score (from Nsg)>0 risk: 6 SCD applied (from Nsg): Yes Pharmacological prophylaxis: heparin Lines/Catheters IV Catheter Type (from Nrsg): Saline Lock Urinary Cath still in place: No Assessment/Plan Hospital Course SUBJECTIVE: No further chest pain or other discomfort. OBJECTIVE: Vital signs-see below PHYSICAL EXAM: Constitutional: Well-developed, adequately built, lying in bed comfortably. Psych: nl mood/affect, no complaints Head: atraumatic, normocephalic Eyes: nl conjunctiva, nl sclera ENMT: mucosa pink and moist, nl external ears & nose Neck: non-tender, supple Respiratory: clear to auscultation, normal air movement Cardiovascular: nl pulses, regular rate and rhythm Gastrointestinal: non-tender, soft, bowel sounds active in all 4 quadrants. Musculoskeletal/extremities: nl extremities to inspection, motor strength equal bilaterally, no focal deficit. Normal pulses,no cyanosis, no edema. Neurological: Alert oriented 3,nl speech, nl strength Skin: nl turgor ASSESSMENT/PLAN: 63-year-old male with CHF, ischemic cardiomyopathy, CAD/CABG, multiple PCI's, diabetes, presented to emergency room with sudden onset of chest pain without radiation woke him up from bed at 5:00 this morning. 1. Chest pain, rule out acute coronary syndrome. -Chest pain resolved -Troponin III sets negative, EKG with no acute ST or T wave changes. -Cardiology following and possible plan for cardiac intervention. -Continue aspirin prophylaxis -PRN nitro, PRN morphine, O2 if indicated 2. Acute on chronic systolic and diastolic congestive heart failure. -Euvolemic and exam. Chest x-ray noted. -Continue with Lasix and beta-blockers. 3. Ischemic cardiomyopathy -Continue outpatient medical management including beta-blockers/ARB 4. Coronary artery disease, status post CABG -Continue DAPT/statin 5. DMII -Stable glycemic trends. Continue ISS/Lantus/pre-meals. 6. Hypercholesterolemia -On statin DVT prophylaxis: Subcu heparin PUD prophylaxis: Not indicated CODE STATUS: Full code Diet: Carbohydrate controlled/low-cholesterol diet. Disposition: Patient has been n.p.o. after midnight, likely plan for cardiac intervention. Follow-up cardiology recommendations. Patient is an evaluation with Dr. Martel. Result Diagram: 11/12/18 0548 11/12/18 0543 Results 24hrs Laboratory Tests Test 11/11/18 13:25 11/11/18 15:12 11/11/18 17:17 11/11/18 20:17 Bedside Glucose 125 154 323 H Creatine Kinase 741 H Creatine Kinase 0.9 Index Creatinine Kinase MB 6.49 H (Mass) Troponin I < 0.012 Test 11/11/18 20:40 11/12/18 01:38 11/12/18 05:43 11/12/18 05:48 Creatine Kinase 824 H 737 H Creatine Kinase 0.8 0.8 Index Creatinine Kinase MB 6.48 H 6.04 H (Mass) Troponin I < 0.012 < 0.012 Bedside Glucose 127 Sodium Level 142 Potassium Level 3.8 Chloride Level 107 Carbon Dioxide Level 24 Anion Gap 11 Blood Urea Nitrogen 16 Creatinine 0.82 Est Glomerular > 60 Filtrat Rate mL/min Glucose Level 140 # Calcium Level 9.2 Phosphorus Level 3.4 Magnesium Level 2.0 Total Bilirubin 0.5 Direct Bilirubin 0.00 Indirect Bilirubin 0.5 Aspartate Amino 32 Transf (AST/SGOT) Alanine 26 Aminotransferase (AL T/SGPT) Alkaline Phosphatase 82 Total Protein 7.2 Albumin 4.0 Globulin 3.20 Albumin/Globulin 1.25 Ratio Triglycerides Level 146 Cholesterol Level 167 LDL Cholesterol, 106 Calculated HDL Cholesterol 32 Cholesterol/HDL 5.2 Ratio Thyroid Stimulating 1.460 Hormone (TSH) White Blood Count 9.1 Red Blood Count 4.38 L Hemoglobin 12.3 L Hematocrit 38.3 L Mean Corpuscular 87.4 Volume Mean Corpuscular 28.1 L Hemoglobin Mean Corpuscular 32.1 Hemoglobin Concent Red Cell 13.6 Distribution Width Platelet Count 232 Mean Platelet Volume 12.0 H Immature 0.200 Granulocytes % Neutrophils % 65.6 Lymphocytes % 24.6 Monocytes % 7.7 Eosinophils % 1.3 Basophils % 0.6 Nucleated Red Blood 0.0 Cells % Immature 0.020 Granulocytes # Neutrophils # 6.0 Lymphocytes # 2.2 Monocytes # 0.7 Eosinophils # 0.1 Basophils # 0.1 Nucleated Red Blood 0.0 Cells # Hemoglobin A1c 9.2 H Test 11/12/18 08:09 Bedside Glucose 157 Exam/Review of Systems Vital Signs Vitals Vital Signs Date Temp Pulse Resp B/P (MAP) Pulse Ox O2 O2 Flow FiO2 Time Delivery Rate 11/12/18 71 08:00 11/12/18 98.4 20 161/83 96 07:28 (109) 11/12/18 Room Air 04:07 Intake and Output 11/11/18 11/11/18 11/12/18 1515:00 23:00 07:00 IntakeIntake Total 450 ml OutputOutput Total 500 ml BalanceBalance -50 ml Medications Medications Current Medications Aspirin (Halfprin) 81 mg DAILY PO Last administered on 11/12/18 08:18; Admin Dose 81 MG; Start 11/12/18 at 09:00 Atorvastatin Calcium (Lipitor) 80 mg QHS PO Last administered on 11/11/18 20:13; Admin Dose 80 MG; Start 11/11/18 at 21:00 Carvedilol (Coreg) 6.25 mg BID PO Last administered on 11/12/18 08:08; Admin Dose 6.25 MG; Start 11/11/18 at 21:00 Clopidogrel Bisulfate (plaVIX) 75 mg DAILY PO Last administered on 11/12/18at 08:07; Admin Dose 75 MG; Start 11/12/18 at 09:00 Famotidine (Pepcid) 20 mg DAILY PO Last administered on 11/12/18at 08:07; Admin Dose 20 MG; Start 11/12/18 at 09:00 Insulin Glargine (Lantus) 45 units QHS SC Last administered on 11/11/18at 20:26; Admin Dose 45 UNITS; Start 11/11/18 at 21:00 Losartan Potassium (Cozaar) 50 mg BID PO Last administered on 11/12/18at 08:08; Admin Dose 50 MG; Start 11/11/18 at 21:00 Magnesium Hydroxide (Milk Of Mag) 30 ml DAILY PO Last administered on 11/12/18 08:06; Admin Dose 30 ML; Start 11/12/18 at 09:00 Nitroglycerin (Nitroglycerin (Sl Tab) 0.4 Mg) 1 tab EVERY 5 MIN PRN SL CHEST PAIN; Start 11/11/18 at 12:00 Insulin Aspart (Novolog Insulin Pen) 9 unit AC MEALS SC Last administered on 11/12/18at 09:04; Admin Dose 9 UNIT; Start 11/11/18 at 12:30 IV Flush (NS 3 ml) 3 ml PER PROTOCOL IV ; Start 11/11/18 at 12:30 Ondansetron HCl (Zofran Inj) 4 mg Q6H PRN IV NAUSEA AND/OR VOMITING; Start 11/11/18 at 12:30 Acetaminophen (Tylenol Tab) 650 mg Q6H PRN PO PAIN LEVEL 1-3 OR FEVER; Start 11/11/18 at 12:30 Morphine Sulfate (morphine) 2 mg Q4H PRN IV SEVERE PAIN LEVEL 7-10; Start 11/11/18 at 12:30 Docusate Sodium (Colace) 100 mg Q12H PRN PO CONSTIPATION; Start 11/11/18 at 12:30 Alprazolam (Xanax) 0.5 mg Q12H PRN PO AGITATION/ANXIETY Last administered on 11/12/18at 01:45; Admin Dose 0.5 MG; Start 11/11/18 at 13:30 Furosemide (Lasix) 20 mg BID DIURETICS PO Last administered on 11/12/18at 06:06; Admin Dose 20 MG; Start 11/11/18 at 18:00 Diagnostic Test (Pha) (Accu-Chek) 1 ea 02 XX Last administered on 11/12/18at 01:45; Admin Dose 1 EA; Start 11/12/18 at 02:00 Insulin Aspart (Novolog Insulin Pen) NOVOLOG *MILD* ALGORITHM WITH MEALS BEDTIME SC Last administered on 11/12/18at 08:16; Admin Dose 1 UNIT; Start 11/11/18 at 17:55 Miscellaneous Information 1 ea NOTE XX ; Start 11/11/18 at 16:00 Glucose (Glutose) 15 gm Q15M PRN PO DECREASED GLUCOSE; Start 11/11/18 at 16:00 Glucose (Glutose) 22.5 gm Q15M PRN PO DECREASED GLUCOSE; Start 11/11/18 at 16:00 Dextrose (D50w Syringe) 25 ml Q15M PRN IV DECREASED GLUCOSE; Start 11/11/18 at 16:00 Dextrose (D50w Syringe) 50 ml Q15M PRN IV DECREASED GLUCOSE; Start 11/11/18 at 16:00 Glucagon (Glucagen) 1 mg Q15M PRN IM DECREASED GLUCOSE; Start 11/11/18 at 16:00 Glucose (Glutose) 15 gm Q15M PRN BUCCAL DECREASED GLUCOSE; Start 11/11/18 at 16:00 Heparin Sodium (Porcine) (Heparin (5000 Units/1ml)) 5,000 unit BID SC Last administered on 11/11/18at 20:26; Admin Dose 5,000 UNIT; Start 11/11/18 at 21:00 Hydralazine HCl (Apresoline) 10 mg Q4H PRN IV ELEVATED BLOOD PRESSURE Last administered on 11/12/18at 04:21; Admin Dose 10 MG; Start 11/12/18 at 00:30 RENATA JOHNSTON V. BURLAP MAN Nov 12, 2018 10:54
[2018-11-12] MEDS ORDERED: SPIRONOLACTONE 25 MG TAB PO SCH (14:00)
[2018-11-12] MEDS ORDERED: FUROSEMIDE 20 MG INJ IV ONE (14:00)
--- NOTE | 2018-11-12 14:41 | CONS ---
Date/Time of Note Date/Time of Note DATE: 11/12/18 TIME: 14:31 Assessment/Plan Assessment/Plan Hospital Course 1. Possible chest pain currently has resolved with no recurrent chest pain and has been ruled out for myocardial infarction 2. Congestive heart failure acute on chronic secondary systolic heart failure probably diastolic heart failure 3. Ischemic cardiomyopathy 4. Severe coronary artery disease with bypass surgery [place] multiple PCI's 5. Diabetes poorly controlled 6. Hypertension 7. Dyslipidemia difficult to control despite Lipitor 80 8. Abnormal EKG due to above 9. Possible anxiety depression Recommendation: I will resume patient on aspirin Plavix Lipitor 80. Coreg will be increased to 25 mg p.o. twice daily. Lost losartan 50 twice daily will be continued. Lasix 40 mg daily will be continued plus Aldactone 25 daily and will add IV dose of Lasix x1 dose now. Echocardiogram will be checked. Cardiac echo have been negative. Diabetic management as per internal medicine Patient appears to be stable after above changes were discharged to follow with me next week. Patient has been scheduled to see me on November 19, 2018 at 10:15 AM for hospital follow-up. Patient was brought to be on his medication for review. Thank you for his referral. RACHEL CALLAHAN MD [facility] Result Diagram: 11/12/18 0548 11/12/18 0543 Results 24hrs Laboratory Tests Test 11/11/18 15:12 11/11/18 17:17 11/11/18 20:17 11/11/18 20:40 Creatine Kinase 741 H 824 H Creatine Kinase 0.9 0.8 Index Creatinine Kinase MB 6.49 H 6.48 H (Mass) Troponin I < 0.012 < 0.012 Bedside Glucose 154 323 H Test 11/12/18 01:38 11/12/18 05:43 11/12/18 05:48 11/12/18 08:09 Bedside Glucose 127 157 Sodium Level 142 Potassium Level 3.8 Chloride Level 107 Carbon Dioxide Level 24 Anion Gap 11 Blood Urea Nitrogen 16 Creatinine 0.82 Est Glomerular > 60 Filtrat Rate mL/min Glucose Level 140 # Calcium Level 9.2 Phosphorus Level 3.4 Magnesium Level 2.0 Total Bilirubin 0.5 Direct Bilirubin 0.00 Indirect Bilirubin 0.5 Aspartate Amino 32 Transf (AST/SGOT) Alanine 26 Aminotransferase (AL T/SGPT) Alkaline Phosphatase 82 Total Protein 7.2 Albumin 4.0 Globulin 3.20 Albumin/Globulin 1.25 Ratio Triglycerides Level 146 Cholesterol Level 167 LDL Cholesterol, 106 Calculated HDL Cholesterol 32 Cholesterol/HDL 5.2 Ratio Thyroid Stimulating 1.460 Hormone (TSH) White Blood Count 9.1 Red Blood Count 4.38 L Hemoglobin 12.3 L Hematocrit 38.3 L Mean Corpuscular 87.4 Volume Mean Corpuscular 28.1 L Hemoglobin Mean Corpuscular 32.1 Hemoglobin Concent Red Cell 13.6 Distribution Width Platelet Count 232 Mean Platelet Volume 12.0 H Immature 0.200 Granulocytes % Neutrophils % 65.6 Lymphocytes % 24.6 Monocytes % 7.7 Eosinophils % 1.3 Basophils % 0.6 Nucleated Red Blood 0.0 Cells % Immature 0.020 Granulocytes # Neutrophils # 6.0 Lymphocytes # 2.2 Monocytes # 0.7 Eosinophils # 0.1 Basophils # 0.1 Nucleated Red Blood 0.0 Cells # Hemoglobin A1c 9.2 H Creatine Kinase 737 H Creatine Kinase 0.8 Index Creatinine Kinase MB 6.04 H (Mass) Troponin I < 0.012 Test 11/12/18 12:01 Bedside Glucose 200 Consultation Date/Type/Reason Admit Date/Time Nov 11, 2018 at 11:44 Date of Consultation: Nov 12, 2018 Type of Consult CV Reason for Consultation CHEST PAIN/ CHF. CARDIOMYOPATHY Requesting Provider: RENATA JOHNSTON NP Hx of Present Illness Interventional cardiology consultation note Chief complaint: HTN, SOB. Reason for consult: ? CHESTPAIN. CAD. CHF. History of present illness: Thank you for this referral. History was obtained from the patient from discussion with his sister from extensive review of the old chart discussion with physicians and staff. Patient also very well-known to me from previous admissions to the hospital outpatient office follow-up This is a pleasant 63-year-old Taj[place] gentleman with history of ischemic cardiomyopathy coronary artery disease with multiple PCI and bypass surgery, severe peripheral vascular disease who presented with above chief complaints. Patient states that he has been having elevated blood pressure over 200. He was also short of breath. He was feeling some chest discomfort when his blood pressure was elevated. He came to emergency room and he has been ruled out for myocardial infarction feeling better and is wanting to go home. Patient leg pain has improved and is able to walk with no chest pain or pressure According to the patient's sister, patient has also been very nervous and anxious and started on benzodiazepine as needed but "is not working " Allergies: No known drug allergies Medications were reviewed as per medical reconciliation sheet Is supposed to be taking aspirin Lipitor 80 Coreg 25 twice daily although appears that he has been taking less of a dose of that, Plavix Lasix 40 daily insulin losartan metformin 1000 twice daily Family history: Mother has diabetes father has pancreatic cancer Social history: Quit smoking 2012 Past medical history: Coronary artery disease status post inferior STEMI 2007 had a PCI of his right coronary artery done using a Taxus drug-eluting stent patient with ACS/TX subsequent to that had PCI with LAD ramus intermediate done. Patient has had restenosis done and required to have multivessel bypass surgery in September 2017. His most recent coronary angiogram was done June 22, 2018 after he had a stress test that this was abnormal. Coronary angiogram at that time showed left main was normal LAD had 90% proximal lesion but a SHAW to LAD was patent. 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 Right coronary artery 100% occlusion of the saphenous vein graft to PDA was patent. PT With history of hypertension diabetes dyslipidemia ischemic cardiomyopathy Lexiscan in June 2018 showed ejection fraction of 24% Severe peripheral vascular disease with multiple to amputation and lower extremity revascularization Review of system: Patient denies all others except for above-mentioned Past Medical History Medications Current Medications Aspirin (Halfprin) 81 mg DAILY PO Last administered on 11/12/18at 08:18; Admin Dose 81 MG; Start 11/12/18 at 09:00 Atorvastatin Calcium (Lipitor) 80 mg QHS PO Last administered on 11/11/18at 20:13; Admin Dose 80 MG; Start 11/11/18 at 21:00 Clopidogrel Bisulfate (plaVIX) 75 mg DAILY PO Last administered on 11/12/18 08:07; Admin Dose 75 MG; Start 11/12/18 at 09:00 Famotidine (Pepcid) 20 mg DAILY PO Last administered on 11/12/18 08:07; Admin Dose 20 MG; Start 11/12/18 at 09:00 Insulin Glargine (Lantus) 45 units QHS SC Last administered on 11/11/18 20:26; Admin Dose 45 UNITS; Start 11/11/18 at 21:00 Losartan Potassium (Cozaar) 50 mg BID PO Last administered on 11/12/18 08:08; Admin Dose 50 MG; Start 11/11/18 at 21:00 Magnesium Hydroxide (Milk Of Mag) 30 ml DAILY PO Last administered on 11/12/18at 08:06; Admin Dose 30 ML; Start 11/12/18 at 09:00 Nitroglycerin (Nitroglycerin (Sl Tab) 0.4 Mg) 1 tab EVERY 5 MIN PRN SL CHEST PAIN; Start 11/11/18 at 12:00 Insulin Aspart (Novolog Insulin Pen) 9 unit AC MEALS SC Last administered on 11/12/18at 09:04; Admin Dose 9 UNIT; Start 11/11/18 at 12:30 IV Flush (NS 3 ml) 3 ml PER PROTOCOL IV ; Start 11/11/18 at 12:30 Ondansetron HCl (Zofran Inj) 4 mg Q6H PRN IV NAUSEA AND/OR VOMITING; Start 11/11/18 at 12:30 Acetaminophen (Tylenol Tab) 650 mg Q6H PRN PO PAIN LEVEL 1-3 OR FEVER; Start 11/11/18 at 12:30 Morphine Sulfate (morphine) 2 mg Q4H PRN IV SEVERE PAIN LEVEL 7-10; Start 11/11/18 at 12:30 Docusate Sodium (Colace) 100 mg Q12H PRN PO CONSTIPATION; Start 11/11/18 at 12:30 Alprazolam (Xanax) 0.5 mg Q12H PRN PO AGITATION/ANXIETY Last administered on at 01:45; Admin Dose 0.5 MG; Start 11/11/18 at 13:30 Diagnostic Test (Pha) (Accu-Chek) 1 ea 02 XX Last administered on 11/12/18at 01:45; Admin Dose 1 EA; Start 11/12/18 at 02:00 Insulin Aspart (Novolog Insulin Pen) NOVOLOG *MILD* ALGORITHM WITH MEALS BEDTIME SC Last administered on 11/12/18at 12:05; Admin Dose 2 UNIT; Start 11/11/18 at 17:55 Miscellaneous Information 1 ea NOTE XX ; Start 11/11/18 at 16:00 Glucose (Glutose) 15 gm Q15M PRN PO DECREASED GLUCOSE; Start 11/11/18 at 16:00 Glucose (Glutose) 22.5 gm Q15M PRN PO DECREASED GLUCOSE; Start 11/11/18 at 16:00 Dextrose (D50w Syringe) 25 ml Q15M PRN IV DECREASED GLUCOSE; Start 11/11/18 at 16:00 Dextrose (D50w Syringe) 50 ml Q15M PRN IV DECREASED GLUCOSE; Start 11/11/18 at 16:00 Glucagon (Glucagen) 1 mg Q15M PRN IM DECREASED GLUCOSE; Start 11/11/18 at 16:00 Glucose (Glutose) 15 gm Q15M PRN BUCCAL DECREASED GLUCOSE; Start 11/11/18 at 16:00 Heparin Sodium (Porcine) (Heparin (5000 Units/1ml)) 5,000 unit BID SC Last administered on 11/11/18at 20:26; Admin Dose 5,000 UNIT; Start 11/11/18 at 21:00 Hydralazine HCl (Apresoline) 10 mg Q4H PRN IV ELEVATED BLOOD PRESSURE Last administered on 11/12/18at 04:21; Admin Dose 10 MG; Start 11/12/18 at 00:30 Carvedilol (Coreg) 25 mg BID PO ; Start 11/12/18 at 21:00 Furosemide (Lasix) 40 mg DAILY@0600 PO ; Start 11/13/18 at 06:00 Spironolactone (Aldactone) 12.5 mg DAILY@0600 PO Last administered on 11/12/18at 14:08; Admin Dose 12.5 MG; Start 11/12/18 at 14:00 Allergies: Coded Allergies: No Known Allergy (Unverified , 11/11/18) Past Surgical History Past Surgical Hx: angioplasty, other Social History Smoking Status: Former smoker Exam/Review of Systems Vital Signs Vitals Vital Signs Date Temp Pulse Resp B/P (MAP) Pulse Ox O2 O2 Flow FiO2 Time Delivery Rate 11/12/18 77 12:00 11/12/18 98.1 20 158/77 94 11:15 (104) 11/12/18 Room Air 04:07 Intake and Output 11/11/18 11/11/18 11/12/18 1515:00 23:00 07:00 IntakeIntake Total 450 ml OutputOutput Total 500 ml BalanceBalance -50 ml Exam General: no acute distress HEENT: NC/AT. pupils are equal. round. NECK: NO JVD. no stridor. CV: RRR. systolic murmur; no gallop or rubs. PULM: no wheezing or rhonchi. GI: SOFT, NT, ND, no rebound or guarding Extremity: trace B/L LE edema. no clubbing. neuro: awake and alert, OX3. Psych: calm and pleasant rectal: deferred : normal EKG normal sinus rhythm. LVH and ST-T wave abnormalities. Chest x-ray shows CHF Medications Medications Current Medications Aspirin (Halfprin) 81 mg DAILY PO Last administered on 11/12/18 08:18; Admin Dose 81 MG; Start 11/12/18 at 09:00 Atorvastatin Calcium (Lipitor) 80 mg QHS PO Last administered on 11/11/18 20:13; Admin Dose 80 MG; Start 11/11/18 at 21:00 Clopidogrel Bisulfate (plaVIX) 75 mg DAILY PO Last administered on 11/12/18 08:07; Admin Dose 75 MG; Start 11/12/18 at 09:00 Famotidine (Pepcid) 20 mg DAILY PO Last administered on 11/12/18 08:07; Admin Dose 20 MG; Start 11/12/18 at 09:00 Insulin Glargine (Lantus) 45 units QHS SC Last administered on 11/11/18 20:26; Admin Dose 45 UNITS; Start 11/11/18 at 21:00 Losartan Potassium (Cozaar) 50 mg BID PO Last administered on 11/12/18 08:08; Admin Dose 50 MG; Start 11/11/18 at 21:00 Magnesium Hydroxide (Milk Of Mag) 30 ml DAILY PO Last administered on 11/12/18 08:06; Admin Dose 30 ML; Start 11/12/18 at 09:00 Nitroglycerin (Nitroglycerin (Sl Tab) 0.4 Mg) 1 tab EVERY 5 MIN PRN SL CHEST PAIN; Start 11/11/18 at 12:00 Insulin Aspart (Novolog Insulin Pen) 9 unit AC MEALS SC Last administered on 11/12/18 09:04; Admin Dose 9 UNIT; Start 11/11/18 at 12:30 IV Flush (NS 3 ml) 3 ml PER PROTOCOL IV ; Start 11/11/18 at 12:30 Ondansetron HCl (Zofran Inj) 4 mg Q6H PRN IV NAUSEA AND/OR VOMITING; Start 11/11/18 at 12:30 Acetaminophen (Tylenol Tab) 650 mg Q6H PRN PO PAIN LEVEL 1-3 OR FEVER; Start 11/11/18 at 12:30 Morphine Sulfate (morphine) 2 mg Q4H PRN IV SEVERE PAIN LEVEL 7-10; Start 11/11/18 at 12:30 Docusate Sodium (Colace) 100 mg Q12H PRN PO CONSTIPATION; Start 11/11/18 at 12:30 Alprazolam (Xanax) 0.5 mg Q12H PRN PO AGITATION/ANXIETY Last administered on 11/12/18at 01:45; Admin Dose 0.5 MG; Start 11/11/18 at 13:30 Diagnostic Test (Pha) (Accu-Chek) 1 ea 02 XX Last administered on 11/12/18at 01:45; Admin Dose 1 EA; Start 11/12/18 at 02:00 Insulin Aspart (Novolog Insulin Pen) NOVOLOG *MILD* ALGORITHM WITH MEALS BEDTIME SC Last administered on 11/12/18at 12:05; Admin Dose 2 UNIT; Start 11/11/18 at 17:55 Miscellaneous Information 1 ea NOTE XX ; Start 11/11/18 at 16:00 Glucose (Glutose) 15 gm Q15M PRN PO DECREASED GLUCOSE; Start 11/11/18 at 16:00 Glucose (Glutose) 22.5 gm Q15M PRN PO DECREASED GLUCOSE; Start 11/11/18 at 16:00 Dextrose (D50w Syringe) 25 ml Q15M PRN IV DECREASED GLUCOSE; Start 11/11/18 at 16:00 Dextrose (D50w Syringe) 50 ml Q15M PRN IV DECREASED GLUCOSE; Start 11/11/18 at 16:00 Glucagon (Glucagen) 1 mg Q15M PRN IM DECREASED GLUCOSE; Start 11/11/18 at 16:00 Glucose (Glutose) 15 gm Q15M PRN BUCCAL DECREASED GLUCOSE; Start 11/11/18 at 16:00 Heparin Sodium (Porcine) (Heparin (5000 Units/1ml)) 5,000 unit BID SC Last administered on 11/11/18at 20:26; Admin Dose 5,000 UNIT; Start 11/11/18 at 21:00 Hydralazine HCl (Apresoline) 10 mg Q4H PRN IV ELEVATED BLOOD PRESSURE Last administered on 11/12/18at 04:21; Admin Dose 10 MG; Start 11/12/18 at 00:30 Carvedilol (Coreg) 25 mg BID PO ; Start 11/12/18 at 21:00 Furosemide (Lasix) 40 mg DAILY@0600 PO ; Start 11/13/18 at 06:00 Spironolactone (Aldactone) 12.5 mg DAILY@0600 PO Last administered on 11/12/18at 14:08; Admin Dose 12.5 MG; Start 11/12/18 at 14:00 RACHEL CALLAHAN MD Nov 12, 2018 14:41
--- NOTE | 2018-11-12 14:52 | PDOCDIS ---
Discharge Instructions CONDITION [id number] Patient Condition: [id number] Stable HOME CARE INSTRUCTIONS: [id number] Your diet recommendation is: [id number] Carbohydrate controlled/low-cholesterol diet. FOLLOW UP/APPOINTMENTS Follow-up Plan Follow-up with primary care physician and senior front end engineer. Patient already has a window glass installer outpatient appointment scheduled on November 19 W/. RENATA JOHNSTON NP Nov 12, 2018 14:52
[2018-11-12] MEDS ORDERED: SPIR25TA PO (14:54)
[2018-11-12] MEDS ORDERED: CARV6.2579 PO (14:54)
[2018-11-12] MEDS ORDERED: INSU100I12 SQ (14:56)
--- NOTE | 2018-11-12 15:02 | DS ---
Date/Time of Note Date/Time of Note DATE: 11/12/18 TIME: 15:00 Discharge Summary Admission/Discharge Info Admit Date/Time Nov 11, 2018 at 11:44 Discharge Date/Time Discharge Diagnosis 1. Chest pain, likely muscular skeletal versus anxiety related. ACS ruled out. 2. Acute on chronic systolic and diastolic congestive heart failure. 3. Ischemic cardiomyopathy 4. Coronary artery disease, status post CABG 5. DMII 6. Hypercholesterolemia Patient Condition: Stable Consults , tube test technician Procedures 11/11/2018. Chest x-ray. IMPRESSION: Mild cardiomegaly with pulmonary vascular congestion. Hx of Present Illness This is a 63-year-old male with a history of hypertension, congestive heart failure, coronary artery disease, CABG, multiple PCI's, multiple PCI, CABG, cardiomyopathy, type 2 diabetes, hypercholesteremia, who was brought in for chest pain which woke him up from bed at 5:00 this morning. Patient denied any radiation of pain. He denied palpitation, diaphoresis, nausea, vomiting, abdominal pain, loss of consciousness, dizziness, numbness, tingling, speech difficulties, vision changes or other constitutional symptoms. Apparently, patient had cardiac workup here at [facility] in June 2018 when he presented with similar symptoms, found to have mild abnormal troponin for which thought to be demand ischemia secondary to CHF/hypertension/CAD. Patient had cardiology workup and had a stress test at that time which showed partially reversible defect inferior wall consistent with severe ischemia with small anteroseptal reversible defect. Patient was sent on maximal medical management at that time. In ER, initial labs showed unremarkable except for hemoglobin 11.0, hematocrit 35.0 and blood sugar 199. Initial troponin negative. Stable vital signs. Chest x-ray showed pulmonary vascular congestion with mild cardiomegaly. In ER, patient was given aspirin 162 mg and nitro patch. Patient was then admitted for further evaluation. Hospital Course 63-year-old male with CHF, ischemic cardiomyopathy, CAD/CABG, multiple PCI's, diabetes, presented to emergency room with sudden onset of chest pain without radiation woke him up from bed at 5:00 in the morning. Patient had cardiology evaluation. He was ruled out for acute coronary syndrome. Most likely causes his pain is muscular skeletal versus anxiety related which is resolved. For heart failure, he was given IV diuresis. Volume status and clinical exam remained stable. Cardiology recommended discharging patient on maximal medical management for heart failure and to have him follow- up with tube test technician office next week. Patient with no further chest pain. Vital signs and labs stable. He was noted with suboptimal glycemic control for which insulin was adjusted for the need. Patient is stable for discharge with outpatient follow-up. Approximately 60 m spent on coordinating the discharge on this patient. Patient was seen in collaboration with Dr. Martel. Home Meds Active Scripts Insulin Lispro (Humalog Kwikpen U-100) 100 Unit/1 Ml Insuln.pen, 15 UNIT SQ AC MEALS, #1 SYR #100 32 GAUGE INSULIN PEN NEEDLES Prov:RENATA JOHNSTON V. MARKETING AMBASSADOR 11/12/18 Spironolactone* (Aldactone*) 25 Mg Tablet, 25 MG PO DAILY@0600, #30 TAB Prov:RENATA JOHNSTON V. MARKETING AMBASSADOR 11/12/18 Carvedilol* (Carvedilol*) 6.25 Mg Tablet, 25 MG PO BID for 30 Days, #60 TAB Prov:RENATA JOHNSTON V. MARKETING AMBASSADOR 11/12/18 Clopidogrel Bisulfate (Clopidogrel) 75 Mg Tablet, 75 MG PO DAILY for 30 Days, #30 TAB Prov:KAYCEE SWARTZ MD 06/22/18 Losartan Potassium* (Losartan Potassium*) 50 Mg Tablet, 50 MG PO BID for 30 Days, #60 TAB Prov:KAYCEE SWARTZ MD 06/21/18 Albuterol Sulfate* (Proair HFA*) 8.5 Gm Hfa.aer.ad, 2 PUFF INH Q4 for SHORTNESS OF BREATH, #1 INHALER Prov:TASHA WATERS NP 11/15/17 Reported Medications Metformin Hcl* (Metformin Hcl*) 1,000 Mg Tablet, 1000 MG PO WITH LUNCH DINNER, #30 TAB 09/23/18 Nitroglycerin* (Nitrostat*) 0.4 Mg Tab.subl, 0.4 MG SL Q5MIN PRN for CHEST PAIN, BOTTLE 06/19/18 Magnesium Hydroxide* (Naylor' MOM*) 30 Ml Susp, 30 ML PO DAILY, ML 06/19/18 Lorazepam* (Lorazepam*) 0.5 Mg Tablet, 0.5 MG PO Q6 PRN for ANXIETY, TAB 06/19/18 Furosemide* (Furosemide*) 40 Mg/5 Ml Solution, 40 MG PO DAILY, #150 ML 06/19/18 Famotidine* (Famotidine*) 20 Mg Tablet, 20 MG PO DAILY, #30 TAB 06/19/18 Atorvastatin* (Atorvastatin*) 80 Mg Tablet, 80 MG PO QHS, #30 TAB 06/19/18 Aspirin Ec (Aspir 81) 81 Mg Tablet.dr, 81 MG PO DAILY, #30 TAB 06/19/18 Insulin Glargine* (Lantus*) 100 Unit/Ml Soln, 45 UNIT SC QHS, #1 VIAL 06/19/18 Albuterol Sulfate* (Albuterol Sulfate* Neb) 0.083%-3 Ml Neb, 2.5 MG NEB Q3H PRN for WHEEZING AND SOB, #30 VIAL 06/19/18 Discontinued Reported Medications Tramadol Hcl* (Ultram*) 50 Mg Tablet, 50 MG PO Q6H PRN for PAIN, TAB 06/19/18 Discontinued Scripts Oxycodone HCl/Acetaminophen (Percocet 5-325 mg Tablet) 1 Each Tablet, 1 EACH PO TID PRN for PAIN, #12 TAB Prov:KANCHAN KELLY MD 11/11/18 Follow-up Plan Follow-up with primary care physician and tube test technician. Patient already has a contract serviceman outpatient appointment scheduled on November 19 W/. Primary Care Provider Care Physician No Primary Pending Labs Laboratory Tests Test 11/11/18 15:12 11/11/18 17:17 11/11/18 20:17 11/11/18 20:40 Creatine 741 824 Kinase IU/L (23-200) IU/L (23-200) Creatine Kinase 0.9 0.8 Index Creatinine 6.49 6.48 Kinase MB ng/ml (0.0-2.4) ng/ml (0.0-2.4 (Mass) ) Troponin I < 0.012 < 0.012 ng/ml (0.000-0. ng/ml (0.000-0 120) .120) Bedside 154 323 Glucose mg/dL (70-220) mg/dL (70-220) Test 11/12/18 01:38 11/12/18 05:43 11/12/18 05:48 11/12/18 08:09 Bedside 127 157 Glucose mg/dL (70-220) mg/dL (70-220) Sodium Level 142 mmol/L (135-14 4) Potassium 3.8 Level mmol/L (3.5-5. 1) Chloride Level 107 mmol/L (97-110 ) Carbon Dioxide 24 Level mmol/L (21-31) Anion Gap 11 (5-13) Blood Urea 16 Nitrogen mg/dl (7-20) Creatinine 0.82 mg/dl (0.61-1. 24) Est Glomerular > 60 Filtrat mL/min (>60) Rate mL/min Glucose Level 140 mg/dl (70-220) Calcium Level 9.2 mg/dl (8.4-10. 2) Phosphorus 3.4 Level mg/dl (2.5-4.9 ) Magnesium 2.0 Level mg/dl (1.7-2.5 ) Total 0.5 Bilirubin mg/dl (0.2-1.3 ) Direct 0.00 Bilirubin mg/dl (0.00-0. 20) Indirect 0.5 Bilirubin mg/dl (0-1.1) Aspartate Amino 32 Transf (AST/SGO IU/L (15-46) T) Alanine 26 Aminotransferas IU/L (13-69) e (ALT/SGPT) Alkaline 82 Phosphatase IU/L (42-121) Total Protein 7.2 g/dl (6.1-8.1) Albumin 4.0 g/dl (3.3-4.9) Globulin 3.20 g/dl (1.3-3.2) Albumin/Globuli 1.25 n Ratio Triglycerides 146 Level mg/dl (0-149) Cholesterol 167 Level mg/dl (100-200 ) LDL 106 mg/dl Cholesterol, Calculated HDL 32 Cholesterol mg/dl (30-78) Cholesterol/HDL 5.2 RATIO Ratio Thyroid 1.460 Stimulating MIU/L (0.465-4 Hormone (TSH) .680) White Blood 9.1 Count 10^3/ul (4.8-1 0.8) Red Blood 4.38 Count 10^6/ul (4.70- 6.10) Hemoglobin 12.3 g/dl (14.0-18. 0) Hematocrit 38.3 % (42.0-52.0) Mean 87.4 Corpuscular fl (82.0-101.0 Volume ) Mean 28.1 Corpuscular pg (29.0-33.0) Hemoglobin Mean 32.1 Corpuscular g/dl (32.0-37. Hemoglobin Conc 0) ent Red Cell 13.6 Distribution % (11.5-14.5) Width Platelet Count 232 10^3/UL (140-4 15) Mean Platelet 12.0 Volume fl (7.4-10.4) Immature 0.200 Granulocytes % % (0.001-0.429 ) Neutrophils % 65.6 % (39.0-77.0) Lymphocytes % 24.6 % (15.0-51.0) Monocytes % 7.7 % (0.0-11.0) Eosinophils % 1.3 % (0.0-7.0) Basophils % 0.6 % (0.0-2.0) Nucleated Red 0.0 Blood Cells % /100WBC (0.0-0 .0) Immature 0.020 Granulocytes # 10^3/ul (0.0-0 .031) Neutrophils # 6.0 10^3/ul (1.6-7 .5) Lymphocytes # 2.2 10^3/ul (0.8-2 .9) Monocytes # 0.7 10^3/ul (0.3-0 .9) Eosinophils # 0.1 10^3/ul (0.0-0 .5) Basophils # 0.1 10^3/ul (0.0-0 .1) Nucleated Red 0.0 Blood Cells # 10^3/ul (0.0-0 .0) Hemoglobin A1c 9.2 % (0-5.9) Creatine 737 Kinase IU/L (23-200) Creatine Kinase 0.8 Index Creatinine 6.04 Kinase MB ng/ml (0.0-2.4 (Mass) ) Troponin I < 0.012 ng/ml (0.000-0 .120) Test 11/12/18 12:01 Bedside 200 Glucose mg/dL (70-220) RENATA JOHNSTON NP Nov 12, 2018 15:02
--- NOTE | 2018-11-12 16:59 | RADRPT ---
Echocardiogram Report Patient Name: MICHELLE LAW Gender: Male Date: 1955 Study Date: 12-Nov-2018 News Librarian: Michael Hercules [facility] Location: [id number] Ref. Physician: RACHEL BORGES Quality: Adequate Procedures: Transthoracic echocardiogram with complete 2D, M-Mode, and doppler examination. Indications: Congestive Heart Failure. 2D/M Mode Doppler Measurement Value Normal Ranges Measurement Value Normal Ranges LVIDd 2D 5.3 3.5 - 5.6 cm AV Peak Evan 1.3 m/sec LVIDs 2D 4.0 2.1 - 4.1 cm AV Peak PG 6.0 mmHg LVPWd 2D 1.2 0.6 - 1.1 cm LVOT Peak Evan 0.7 m/sec IVSd 2D 1.2 0.6 - 1.1 cm LVOT Peak PG 2.0 mmHg AoR Diam 2D 3.4 2.0 - 3.7 cm MV E Peak Evan 0.7 m/sec LA/Ao 2D 1 0 - 1 MV A Peak Evan 0.6 m/sec LA Dimen 2D 3.4 2.3 - 4.0 cm MV E/A 1.1 MV Decel Time 201 msec Lat E` Evan 0.1 m/sec Lateral E/E` 6.5 Med E` Evan 0.1 m/sec MV E/A 1.1 Findings Left Ventricle: Normal left ventricular cavity size. Normal left ventricular wall thickness. Severe left ventricular systolic dysfunction. Ejection fraction is visually estimated at 2530 %. Multiple segmental wall motion abnormalities. Right Ventricle: Normal right ventricular size. Normal right ventricular systolic function. Left Atrium: The left atrium is normal in size. Right Atrium: The right atrium is normal in size. Mitral Valve: Normal appearance of the mitral valve. Mild mitral annular calcification. Trace mitral regurgitation. Aortic Valve: Normal appearance of the aortic valve. No significant aortic stenosis or insufficiency. Tricuspid Valve: Normal appearance of the tricuspid valve. Unable to obtain RVSP due to minimal presence of tricuspid regurgitation. Pulmonic Valve: Normal pulmonic valve appearance. Pericardium: Normal pericardium with no significant pericardial effusion. Aorta: Normal aortic root. IVC: Normal size and normal respiratory collapse consistent with normal right atrial pressure. Conclusions Normal left ventricular cavity size. Normal left ventricular wall thickness. Severe left ventricular systolic dysfunction. Ejection fraction is visually estimated at 25-30 %. Multiple segmental wall motion abnormalities. Normal appearance of the mitral valve. Mild mitral annular calcification. Trace mitral regurgitation. Normal appearance of the aortic valve. No significant aortic stenosis or insufficiency. Normal appearance of the tricuspid valve. Unable to obtain RVSP due to minimal presence of tricuspid regurgitation. Normal size and normal respiratory collapse consistent with normal right atrial pressure. Electronically Signed By: Rachel Borges 12-Nov-2018 16:58:19 -0800 Patient Name: MICHELLE LAW Study Date: 12-Nov-2018 [id number]
[2018-11-13] MEDS ORDERED: FUROSEMIDE 40 MG TAB PO SCH (06:00)
== END 2018-11-12 16:00 | disposition home or self-care (01) ==
LOC: E/R 09:00 → TEL 11:44
PROVIDERS: ADMIT Family Medicine; ATTEND Family Medicine
DX: I11.0 Hypertensive heart disease with heart failure (principal); I50.43 Acute on chronic combined systolic (congestive) and diastolic (congestive) heart failure; I25.5 Ischemic cardiomyopathy; I25.10 Atherosclerotic heart disease of native coronary artery without angina pectoris; E78.00 Pure hypercholesterolemia, unspecified; E11.65 Type 2 diabetes mellitus with hyperglycemia; Z79.82 Long term (current) use of aspirin; Z79.84 Long term (current) use of oral hypoglycemic drugs; Z79.4 Long term (current) use of insulin; E78.5 Hyperlipidemia, unspecified; R94.31 Abnormal electrocardiogram [ECG] [EKG]
CPT/HCPCS: 36415; 71045; 80048; 80053; 80061; 82550; 82553; 82962; 83036; 83735; 84100; 84443; 84484; 85025; 93005; 93306; J0360; J1644; J1815; J1940; Z7500; Z7502; Z7610; G0378

== ENCOUNTER 2019-01-15 23:28 | Emergency (ER) | payer MEDICAID ==
[~2019-01-15] VITALS: Ht 177.8 cm; Wt 81.8 kg
[~2019-01-15 23:28] MED LIST changes: +SPIR25TA PO; -TRAM50TA PO
--- NOTE | 2019-01-15 23:46 | ERD ---
ER Documentation Chief Complaint Chief Complaint HPI 48-year-old man brought in by EMS from home for postop pain to the left lower ex tremity after below-knee amputation about 1 week ago, he is worried about having an infection at the stump. He denies chest pain or shortness of breath despite initial triage complaint. He denies redness or swelling, no purulent discharge, no recent trauma. He denies fevers or chills, no back pain, no dysuria, no headache or blurry vision. ROS All systems reviewed and are negative except as per history of present illness. Medications Home Meds Active Scripts Cephalexin* (Keflex*) 500 Mg Capsule, 500 MG PO TID for 7 Days, CAP Prov:KANCHAN KELLY MD 01/16/19 Insulin Lispro (Humalog Kwikpen U-100) 100 Unit/1 Ml Insuln.pen, 15 UNIT SQ AC MEALS, #1 SYR #100 32 GAUGE INSULIN PEN NEEDLES Prov:RENATA JOHNSTON V. LENS INSERTER 11/12/18 Spironolactone* (Aldactone*) 25 Mg Tablet, 25 MG PO DAILY@0600, #30 TAB Prov:RENATA JOHNSTON V. LENS INSERTER 11/12/18 Carvedilol* (Carvedilol*) 6.25 Mg Tablet, 25 MG PO BID for 30 Days, #60 TAB Prov:RENATA JOHNSTON V. LENS INSERTER 11/12/18 Clopidogrel Bisulfate (Clopidogrel) 75 Mg Tablet, 75 MG PO DAILY for 30 Days, #30 TAB Prov:KAYCEE SWARTZ MD 06/22/18 Losartan Potassium* (Losartan Potassium*) 50 Mg Tablet, 50 MG PO BID for 30 Da ys, #60 TAB Prov:KAYCEE SWARTZ MD 06/21/18 Albuterol Sulfate* (Proair HFA*) 8.5 Gm Hfa.aer.ad, 2 PUFF INH Q4 for SHORTNESS OF BREATH, #1 INHALER Prov:TASHA WATERS NP 11/15/17 Reported Medications Metformin Hcl* (Metformin Hcl*) 1,000 Mg Tablet, 1000 MG PO WITH LUNCH DINNER, #30 TAB 09/23/18 Nitroglycerin* (Nitrostat*) 0.4 Mg Tab.subl, 0.4 MG SL Q5MIN PRN for CHEST PAIN, BOTTLE 06/19/18 Magnesium Hydroxide* (Naylor' MOM*) 30 Ml Susp, 30 ML PO DAILY, ML 06/19/18 Lorazepam* (Lorazepam*) 0.5 Mg Tablet, 0.5 MG PO Q6 PRN for ANXIETY, TAB 06/19/18 Furosemide* (Furosemide*) 40 Mg/5 Ml Solution, 40 MG PO DAILY, #150 ML 06/19/18 Famotidine* (Famotidine*) 20 Mg Tablet, 20 MG PO DAILY, #30 TAB 06/19/18 Atorvastatin* (Atorvastatin*) 80 Mg Tablet, 80 MG PO QHS, #30 TAB 06/19/18 Aspirin Ec (Aspir 81) 81 Mg Tablet.dr, 81 MG PO DAILY, #30 TAB 06/19/18 Insulin Glargine* (Lantus*) 100 Unit/Ml Soln, 45 UNIT SC QHS, #1 VIAL 06/19/18 Albuterol Sulfate* (Albuterol Sulfate* Neb) 0.083%-3 Ml Neb, 2.5 MG NEB Q3H PRN for WHEEZING AND SOB, #30 VIAL 06/19/18 Allergies Allergies: Coded Allergies: No Known Allergy (Unverified , 11/11/18) PMhx/Soc CAD, status post CABG, CHF with EF of 25%, cardiomyopathy, diabetes mellitus, hypertension, dyslipidemia, anxiety and depression, angiogram in March 2018 revealing patent LAD, chronic 100% left circumflex artery occlusion with collaterals, 100% occlusion of the mid RCA History of Surgery: Yes (CABG, STENT PLACEMENT ) Anesthesia Reaction: No Hx Neurological Disorder: No Hx Respiratory Disorders: No Hx Cardiac Disorders: Yes (CORONARY DISEASE, HTN ) Hx Psychiatric Problems: No Hx Miscellaneous Medical Probl: No Hx Alcohol Use: Yes (occasionally , greek cognac) Hx Substance Use: No Hx Tobacco Use: No FmHx Family History: No diabetes Physical Exam Vitals Vital Signs Date Temp Pulse Resp B/P (MAP) Pulse Ox O2 O2 Flow FiO2 Time Delivery Rate 01/16/19 75 16 144/78 99 Room Air 01:50 (100) 01/16/19 99.9 93 16 160/82 98 00:00 (108) 01/16/19 99.9 93 16 160/82 98 Room Air 00:00 (108) Per nurse's records Physical Exam GENERAL: Well-developed, well-nourished, well-hydrated, in no apparent distress, looks nontoxic in appearance CARDIAC: Regular rate and rhythm, no murmurs rubs or gallops LUNGS: Clear bilaterally no wheezing crackles or stridor ABDOMEN: Soft nontender, no guarding, no rigidity, no rebound, no psoas sign no obturator sign. Normoactive bowel sounds SKIN: Warm and dry to touch, no abrasions, contusions, or hematomas, no lacerations, no ecchymosis, no target lesions, and without ulcers EXTREMITIES: Left lower extremity reveals below-knee amputation, stump is clean and dry sutures are intact there is no wound dehiscence, no purulent discharge, no skin induration or erythema PSYCH: Normal affect without agitation or irritability Result Diagram: 01/16/19 0044 01/16/19 0043 Results 24 hrs Laboratory Tests Test 01/16/19 00:43 01/16/19 00:44 Sodium Level 135 mmol/L Potassium Level 3.6 mmol/L Chloride Level 103 mmol/L Carbon Dioxide Level 23 mmol/L Anion Gap 9 Blood Urea Nitrogen 14 mg/dl Creatinine 0.65 mg/dl Est Glomerular Filtrat Rate mL/min > 60 mL/min Glucose Level 198 mg/dl Calcium Level 9.2 mg/dl White Blood Count 12.6 10^3/ul Red Blood Count 3.60 10^6/ul Hemoglobin 9.5 g/dl Hematocrit 30.7 % Mean Corpuscular Volume 85.3 fl Mean Corpuscular Hemoglobin 26.4 pg Mean Corpuscular Hemoglobin Concent 30.9 g/dl Red Cell Distribution Width 14.2 % Platelet Count 214 10^3/UL Mean Platelet Volume 11.3 fl Immature Granulocytes % 0.500 % Neutrophils % 79.5 % Lymphocytes % 12.3 % Monocytes % 6.8 % Eosinophils % 0.6 % Basophils % 0.3 % Nucleated Red Blood Cells % 0.0 /100WBC Immature Granulocytes # 0.060 10^3/ul Neutrophils # 10.0 10^3/ul Lymphocytes # 1.6 10^3/ul Monocytes # 0.9 10^3/ul Eosinophils # 0.1 10^3/ul Basophils # 0.0 10^3/ul Nucleated Red Blood Cells # 0.0 10^3/ul Current Medications Medications Dose Sig/Masha Start Time Status Last (Trade) Ordered Route PRN Stop Time Admin Dose Reason Admin Sodium 1,000 ml @ Q1H STAT 01/15/19 DC 01/16/19 Chloride 1,000 mls/hr IV 23:50 00:25 01/16/19 00:49 Ketorolac 15 mg ONCE STAT 01/15/19 DC 01/16/19 Tromethamine IV 23:50 00:25 (Toradol) 01/15/19 23:52 Ceftriaxone 50 ml @ ONCE ONCE 01/16/19 DC 01/16/19 Sodium 100 mls/hr IVPB 01:30 01:32 01/16/19 01:56 Procedures/MDM IV line was established patient was placed on site monitor rhythm strip revealed a sinus rhythm at about 90 bpm with upright P and T waves. Patient was afebrile EKG performed, read by me revealed a normal sinus rhythm at 91 bpm, normal axis, intraventricular conduction delay QRS duration 100 ms, inferior T wave inversions, no concerning ST elevation or depression noted I administered normal saline IV, Toradol 15 mg IV, and ceftriaxone 1 g IV. CBC reveals mild anemia, electrolytes unremarkable Patient's postop below-knee amputation appears clean and dry, no outward signs of cellulitis or infection although given his concern I did treat him here with antibiotics. There may be early infection and I will treat him as an outpatient with oral antibiotics, although I did tell him and his who is at the bedside to return if he develops redness or discharge from the surgical site or if he develops a fever. Patient feels much better at this time, and vital signs are normal, symptoms have improved. I did give strict instructions to return to the ED if symptoms continue or worsen, patient will otherwise follow-up with primary care physician. Patient understood instructions and agreed to plan. Disclaimer: Inadvertent spelling and grammatical errors are likely due to EHR/dictation software use and do not reflect on the overall quality of patient care. Also, please note that the electronic time recorded on this note does not necessarily reflect the actual time of the patient encounter. Departure Diagnosis: Primary Impression: Postoperative pain Condition: KANCHAN Miles MD Jan 15, 2019 23:46
[2019-01-15] MEDS ORDERED: SOD CHLORIDE 0.9% 1,000 ML IV STA (23:50)
[2019-01-15] MEDS ORDERED: KETOROLAC 15 MG INJ IV STA (23:50)
[2019-01-16] VITALS: Ht 177.8 cm; Wt 81.8 kg
[2019-01-16] MEDS ORDERED: CEPH-443 PO (01:22)
[2019-01-16] MEDS ORDERED: CEFTRIAXONE 1 GM/50 ML (PMX) 50 ML IVPB ONE (01:30)
[2019-01-16 01:50] VITALS: BP 144/78; PULSE 75; RESP 16
== END 2019-01-16 01:56 | disposition home or self-care (01) ==
LOC: E/R 23:28
DX: G89.18 Other acute postprocedural pain (principal); E11.9 Type 2 diabetes mellitus without complications; I10 Essential (primary) hypertension; I50.9 Heart failure, unspecified; I25.10 Atherosclerotic heart disease of native coronary artery without angina pectoris; Z79.4 Long term (current) use of insulin; Z79.82 Long term (current) use of aspirin; Z95.1 Presence of aortocoronary bypass graft; Z98.61 Coronary angioplasty status
CPT/HCPCS: 36415; 80048; 85025; 87040; 93005; 96365; 96375; J0696; J1885; J7030; Z7502

== ENCOUNTER 2019-02-20 04:12 | Observation (INO) | payer MEDICAID ==
[~2019-02-20] VITALS: Ht 177.8 cm; Wt 86.0 kg
[~2019-02-20 04:12] MED LIST changes: +CEPH-443 PO
--- NOTE | 2019-02-20 04:27 | ERD ---
ER Documentation Chief Complaint Chief Complaint bib self, cc: chest pain since 11 pm, given nitro, and asa 162 HPI 63-year-old male with a history of CAD, diabetes, and CABG 1 year ago presenting by ambulance with chest pain that started at 11:30 PM last night. He was taking nitroglycerin at home with only minimal relief. He complained of pressure-like chest pain in the left chest radiating to his arm with associated shortness of breath. he had diaphoresis as well. He was given aspirin and nitroglycerin prior to arrival in the ambulance with some improvement of his symptoms. His symptoms started while he was at rest. No exacerbating factors. ROS All systems reviewed and are negative except as per history of present illness. Medications Home Meds Active Scripts Cephalexin* (Keflex*) 500 Mg Capsule, 500 MG PO TID for 7 Days, CAP Prov:KANCHAN KELLY MD 01/16/19 Insulin Lispro (Humalog Kwikpen U-100) 100 Unit/1 Ml Insuln.pen, 15 UNIT SQ AC MEALS, #1 SYR #100 32 GAUGE INSULIN PEN NEEDLES Prov:RENATA JOHNSTON NP 11/12/18 Spironolactone* (Aldactone*) 25 Mg Tablet, 25 MG PO DAILY@0600, #30 TAB Prov:RENATA JOHNSTON V. CLINICAL MENTAL HEALTH COUNSELOR 11/12/18 Carvedilol* (Carvedilol*) 6.25 Mg Tablet, 25 MG PO BID for 30 Days, #60 TAB Prov:RENATA JOHNSTON V. CLINICAL MENTAL HEALTH COUNSELOR 11/12/18 Clopidogrel Bisulfate (Clopidogrel) 75 Mg Tablet, 75 MG PO DAILY for 30 Days, #30 TAB Prov:KAYCEE SWARTZ MD 06/22/18 Losartan Potassium* (Losartan Potassium*) 50 Mg Tablet, 50 MG PO BID for 30 Days, #60 TAB Prov:KAYCEE SWARTZ MD 06/21/18 Albuterol Sulfate* (Proair HFA*) 8.5 Gm Hfa.aer.ad, 2 PUFF INH Q4 for SHORTNESS OF BREATH, #1 INHALER Prov:TASHA WATERS NP 11/15/17 Reported Medications Metformin Hcl* (Metformin Hcl*) 1,000 Mg Tablet, 1000 MG PO WITH LUNCH DINNER, #30 TAB 09/23/18 Nitroglycerin* (Nitrostat*) 0.4 Mg Tab.subl, 0.4 MG SL Q5MIN PRN for CHEST PAIN, BOTTLE 06/19/18 Magnesium Hydroxide* (Naylor' MOM*) 30 Ml Susp, 30 ML PO DAILY, ML 06/19/18 Lorazepam* (Lorazepam*) 0.5 Mg Tablet, 0.5 MG PO Q6 PRN for ANXIETY, TAB 06/19/18 Furosemide* (Furosemide*) 40 Mg/5 Ml Solution, 40 MG PO DAILY, #150 ML 06/19/18 Famotidine* (Famotidine*) 20 Mg Tablet, 20 MG PO DAILY, #30 TAB 06/19/18 Atorvastatin* (Atorvastatin*) 80 Mg Tablet, 80 MG PO QHS, #30 TAB 06/19/18 Aspirin Ec (Aspir 81) 81 Mg Tablet.dr, 81 MG PO DAILY, #30 TAB 06/19/18 Insulin Glargine* (Lantus*) 100 Unit/Ml Soln, 45 UNIT SC QHS, #1 VIAL 06/19/18 Albuterol Sulfate* (Albuterol Sulfate* Neb) 0.083%-3 Ml Neb, 2.5 MG NEB Q3H PRN for WHEEZING AND SOB, #30 VIAL 06/19/18 Allergies Allergies: Coded Allergies: No Known Allergy (Unverified , 11/11/18) PMhx/Soc History of Surgery: Yes (CABG, STENT PLACEMENT, left BKA) Anesthesia Reaction: No Hx Neurological Disorder: No Hx Respiratory Disorders: No Hx Cardiac Disorders: Yes (CORONARY DISEASE, HTN ) Hx Psychiatric Problems: No Hx Miscellaneous Medical Probl: Yes (DM II) Hx Alcohol Use: Yes (occasionally , [place] cognac) Hx Substance Use: No Hx Tobacco Use: Yes FmHx Family History: No diabetes Physical Exam Vitals Vital Signs Date Temp Pulse Resp B/P (MAP) Pulse Ox O2 O2 Flow FiO2 Time Delivery Rate 02/20/19 98.4 82 14 155/85 97 Room Air 06:15 (108) 02/20/19 98.5 83 19 145/78 97 04:17 (100) Physical Exam Const: No acute distress Head: Atraumatic Eyes: Normal Conjunctiva ENT: Normal External Ears, Nose and Mouth. Neck: Full range of motion. No meningismus. Resp: Clear to auscultation bilaterally Cardio: Regular rate and rhythm, no murmurs Abd: Soft, non tender, non distended. Normal bowel sounds Skin: No petechiae or rashes Back: No midline or flank tenderness Ext: No cyanosis, or edema Neur: Awake and alert Psych: Normal Mood and Affect Result Diagram: 02/20/19 0500 02/20/19 0500 Results 24 hrs Laboratory Tests Test 02/20/19 05:00 02/20/19 06:40 White Blood Count 6.7 10^3/ul Red Blood Count 4.27 10^6/ul Hemoglobin 11.0 g/dl Hematocrit 35.7 % Mean Corpuscular Volume 83.6 fl Mean Corpuscular Hemoglobin 25.8 pg Mean Corpuscular Hemoglobin Concent 30.8 g/dl Red Cell Distribution Width 16.8 % Platelet Count 227 10^3/UL Mean Platelet Volume 11.2 fl Immature Granulocytes % 0.400 % Neutrophils % 56.3 % Lymphocytes % 33.8 % Monocytes % 7.6 % Eosinophils % 1.5 % Basophils % 0.4 % Nucleated Red Blood Cells % 0.0 /100WBC Immature Granulocytes # 0.030 10^3/ul Neutrophils # 3.8 10^3/ul Lymphocytes # 2.3 10^3/ul Monocytes # 0.5 10^3/ul Eosinophils # 0.1 10^3/ul Basophils # 0.0 10^3/ul Nucleated Red Blood Cells # 0.0 10^3/ul Sodium Level 140 mmol/L Potassium Level 4.0 mmol/L Chloride Level 108 mmol/L Carbon Dioxide Level 26 mmol/L Anion Gap 6 Blood Urea Nitrogen 15 mg/dl Creatinine 0.74 mg/dl Est Glomerular Filtrat Rate mL/min > 60 mL/min Glucose Level 225 mg/dl Calcium Level 9.5 mg/dl Troponin I < 0.012 ng/ml Bedside Glucose 193 mg/dL Current Medications Medications Dose Sig/Masha Start Time Status Last (Trade) Ordered Route PRN Stop Time Admin Dose Reason Admin Ondansetron 4 mg ER BRIDGE 02/20/19 HCl (Zofran PRN IV 06:00 Inj) NAUSEA/VOMITI 02/21/19 05:59 NG 650 mg ER BRIDGE 02/20/19 Acetaminophen PRN PO 06:00 (Tylenol .MILD PAIN 02/21/19 05:59 Tab) 1-3 OR TEMP Aspirin 81 mg DAILY PO 02/20/19 (Halfprin) 09:00 80 mg QHS PO 02/20/19 Atorvastatin 21:00 Calcium (Lipitor) Carvedilol 25 mg BID PO 02/20/19 (Coreg) 09:00 Clopidogrel 75 mg DAILY PO 02/20/19 Bisulfate 09:00 (plaVIX) Famotidine 20 mg DAILY PO 02/20/19 (Pepcid) 09:00 Furosemide 40 mg DAILY PO 02/20/19 (Lasix) 09:00 Insulin 45 units QHS SC 02/20/19 Glargine 21:00 (Lantus) Lorazepam 0.5 mg Q6H PRN 02/20/19 (Ativan) PO ANXIETY 06:30 Losartan 50 mg BID PO 02/20/19 Potassium 09:00 (Cozaar) Magnesium 30 ml DAILY PO 02/20/19 Hydroxide 09:00 (Milk Of Mag) 25 mg DAILY@0600 02/21/19 Spironolacton PO 06:00 e (Aldactone) Insulin 15 unit AC MEALS 02/20/19 Aspart SC 07:00 (Novolog Insulin Pen) IV Flush 3 ml PER 02/20/19 (NS 3 ml) PROTOCOL IV 06:30 Ondansetron 4 mg Q6H PRN 02/20/19 HCl (Zofran IV 06:30 Inj) NAUSEA/VOMITI NG 1 tab Q5M PRN 02/20/19 Nitroglycerin SL .CHEST 06:30 PAIN (Nitroglyceri n (Sl Tab) 0.4 Mg) 650 mg Q6H PRN 02/20/19 Acetaminophen PO .PAIN 1-3 06:30 (Tylenol OR TEMP Tab) Morphine 2 mg Q4H PRN 02/20/19 Sulfate IV .PAIN 06:30 (morphine) 7-10 Docusate 100 mg Q12H PRN 02/20/19 Sodium PO 06:30 (Colace) .CONSTIPATION Bisacodyl 5 mg DAILY PRN 02/20/19 (Dulcolax) PO 06:30 .CONSTIPATION 1 ea NOTE XX 02/20/19 Miscellaneous 06:00 Information Glucose 15 gm Q15M PRN 02/20/19 (Glutose) PO DECREASED 06:00 GLUCOSE Glucose 22.5 gm Q15M PRN 02/20/19 (Glutose) PO DECREASED 06:00 GLUCOSE Dextrose 25 ml Q15M PRN 02/20/19 (D50w IV DECREASED 06:00 Syringe) GLUCOSE Dextrose 50 ml Q15M PRN 02/20/19 (D50w IV DECREASED 06:00 Syringe) GLUCOSE Glucagon 1 mg Q15M PRN 02/20/19 (Glucagen) IM DECREASED 06:00 GLUCOSE Glucose 15 gm Q15M PRN 02/20/19 (Glutose) BUCCAL 06:00 DECREASED GLUCOSE Procedures/MDM EMERGENT LABS AND DIAGNOSTIC STUDIES: Lab Results above were reviewed and interpreted by me. CBC: no evidence of clinically significant anemia or evidence of infection BMP: Hyperglycemic. no e/o clinically significant electrolyte abnormality severe acidosis, alkalosis, renal failure, diabetic ketoacidosis Troponin within normal limits, not indicative of cardiac ischemia 12-lead EKG was interpreted by Zeny Oconnor MD: Normal Sinus Rhythm with sinus arrhythmia Normal axis Normal intervals LVH with repolarization abnormality Lateral T wave inversions, abnormal R wave progression No STEMI. Radiology Results as interpreted by Radiology below were reviewed by SSeth Oconnor MD: Chest x-ray: 1. Status post median sternotomy. 2. Cardiomegaly. 2. Mild pulmonary vascular congestion. Initial Nursing notes reviewed. Previous Medical Records requested via the Electronic Health Record. EMERGENCY DEPARTMENT COURSE / MEDICAL DECISION MAKING: Patients symptoms are concerning for a cardiac etiology. Other etiologies considered were PE, aortic dissection, pneumonia, pneumothorax, esophageal rupture. EKG showed possible ischemia. Initial troponin negative. CXR grossly unremarkable. However patient has an intermediate risk of adverse events. Plan to admit for further evaluation. Further workup will be deferred to the inpatient team. Accepting Care Team: Current data and ongoing care discussed. Time: Time of admission Primary Provider: Dr. Yohan Daigle Diagnosis: Primary Impression: Chest pain Chest pain type: unspecified Qualified Codes: R07.9 - Chest pain, u nspecified Condition: Fair JOSÉ MIGUEL OCONNOR MD Feb 20, 2019 04:27
[2019-02-20] MEDS ORDERED: DEXTROSE 50% 50 ML SYRINGE IV PRN ×2 (06:00)
[2019-02-20] MEDS ORDERED: GLUCAGON 1 MG INJ IM PRN (06:00)
[2019-02-20] MEDS ORDERED: GLUCOSE GEL 15 GRAM TUBE PO PRN ×2 (06:00)
[2019-02-20] MEDS ORDERED: GLUCOSE GEL 15 GRAM TUBE BUCCAL PRN (06:00)
[2019-02-20] MEDS ORDERED: ACETAMINOPHEN 325 MG TAB PO PRN ×2 (06:00→06:30)
[2019-02-20] MEDS ORDERED: ONDANSETRON 4 MG INJ IV PRN ×2 (06:00→06:30)
[2019-02-20] MEDS ORDERED: NACL 0.9% 3 ML SYG IV SCH (06:30)
[2019-02-20] MEDS ORDERED: DOCUSATE SODIUM 100 MG CAP PO PRN (06:30)
[2019-02-20] MEDS ORDERED: BISACODYL (EC) 5 MG TAB PO PRN (06:30)
[2019-02-20] MEDS: INSULIN ASPART [NOVOLOG] 3 ML PEN SC SCH ×3 (07:00→17:37)
[2019-02-20] MEDS: FUROSEMIDE 40 MG TAB PO SCH (09:16)
[2019-02-20] MEDS: CLOPIDOGREL 75 MG TAB PO SCH (09:16)
[2019-02-20] MEDS: ASPIRIN (EC) 81 MG TAB PO SCH (09:16)
[2019-02-20] MEDS: MAGNESIUM HYDROXIDE 30ML CUP PO SCH (09:16)
[2019-02-20] MEDS: LOSARTAN 50 MG TAB PO SCH ×2 (09:16→21:17)
[2019-02-20] MEDS: FAMOTIDINE 20 MG TAB PO SCH (09:16)
[2019-02-20] MEDS: LORAZEPAM 0.5 MG TAB PO PRN ×2 (09:59→18:26)
--- NOTE | 2019-02-20 10:03 | HP ---
Date/Time of Note Date/Time of Note DATE: 02/20/19 TIME: 10:00 Assessment/Plan VTE Prophylaxis Pharmacological prophylaxis: LMWH Lines/Catheters IV [facility] Saline Lock Assessment/Plan Hospital Course 63-year-old male with comorbidities including hypertension, diabetes mellitus type 2, congestive heart failure, ischemic cardiomyopathy, CAD status post multiple percutaneous coronary interventions and CABG, who came to the emergency room with chief complaint of chest pain, who will be admitted to inpatient setting for further treatment and evaluation. 1. Chest pain. -Etiology unclear. -Will rule out ACS provided the patient's extensive cardiac history. -Resume cardiac medications. -Obtain cardiology consult. 2. Hypertension. -Resume antihypertensives. 3. Diabetes mellitus type 2. -Start the patient on sliding scale insulin along with pre-meal insulin and basal insulin. -Evaluate hemoglobin A1c to review the blood glucose control over the past 3 months. 4. Ischemic cardiomyopathy. -Latest 2D echocardiogram from November 2018 showing ejection fraction of 25 to 30%. -Continue beta-blockers, angiotensin II receptor blockers, and aldosterone antagonists. 5. CAD, status post CABG. -Continue cardiac medications including dual antiplatelet therapy. 6. Dyslipidemia. -Continue statins. 7. Peripheral artery disease. -Status post left below-knee amputation. -Continue dual antiplatelet therapy. 8. Normocytic anemia. -Most probably anemia of chronic disease. -Monitor H&H closely. 9. Nicotine use. -Cessation advised. Plan: The patient will be admitted to inpatient telemetry floor. The patient will be started on a low-cholesterol, carbohydrate controlled diet. The patient will be started on DVT prophylaxis. The patient will remain a full code. Activities will be as tolerated. The rest of the patient's management will be based on the clinical course, inputs from consultants, and the results of diagnostic studies. Based on the patient's clinical presentation, he most probably requires at least 1 midnight's stay for further management and evaluation of his clinical presentation. The patient was seen in collaboration with Dr. Arvizu. Result Diagram: 02/20/19 0500 02/20/19 0500 Results 24hrs Laboratory Tests Test 02/20/19 05:00 02/20/19 06:40 02/20/19 09:04 White Blood Count 6.7 # Red Blood Count 4.27 L Hemoglobin 11.0 L Hematocrit 35.7 L Mean Corpuscular Volume 83.6 Mean Corpuscular Hemoglobin 25.8 L Mean Corpuscular Hemoglobin Concent 30.8 L Red Cell Distribution Width 16.8 H Platelet Count 227 Mean Platelet Volume 11.2 H Immature Granulocytes % 0.400 Neutrophils % 56.3 Lymphocytes % 33.8 Monocytes % 7.6 Eosinophils % 1.5 Basophils % 0.4 Nucleated Red Blood Cells % 0.0 Immature Granulocytes # 0.030 Neutrophils # 3.8 Lymphocytes # 2.3 Monocytes # 0.5 Eosinophils # 0.1 Basophils # 0.0 Nucleated Red Blood Cells # 0.0 Sodium Level 140 Potassium Level 4.0 Chloride Level 108 Carbon Dioxide Level 26 Anion Gap 6 Blood Urea Nitrogen 15 Creatinine 0.74 Est Glomerular Filtrat Rate mL/min > 60 Glucose Level 225 H Calcium Level 9.5 Troponin I < 0.012 Bedside Glucose 193 320 H HPI/ROS Admit Date/Time Admit Date/Time Hx of Present Illness This is a 63-year-old male with past medical history of hypertension, diabetes mellitus type 2, congestive heart failure, ischemic cardiomyopathy, CAD status post multiple percutaneous coronary interventions plus CABG, peripheral vascular disease, dyslipidemia, anxiety disorder, and nicotine use. The patient came to the emergency room with chief complaint of chest pain. The patient relates that he had an episode of chest pain on the night of 02/19/2019 around 1130 when he also had a elevated blood pressure. The patient went back to sleep and started having chest pain early in the morning at 3 AM on 02/20/2019 with associated elevation in blood pressure. Therefore, he called paramedics and he was brought to the emergency room. The patient described the chest pain as numbness.The patient denied any associated nausea, vomiting, or diaphoresis. The patient had denied any radiation of pain. The patient verbalized that he has been compliant with all his medications. However, he resumed smoking cigarettes although he has not been using any tobacco products for the past 6 years. The patient recently had a left lower extremity below-knee amputation because of an apparent gangrene in the left lower extremity. The patient follows up with Dr. Borges as outpatient and his last follow-up with Dr. Borges was approximately 3 months ago. The patient denied any fevers, chills, or cough. In the emergency room, the patient's troponins were negative. ROS Constitutional: no complaints Eyes: no complaints ENT: no complaints Respiratory: no complaints Cardiovascular: chest pain Gastrointestinal: no complaints Genitourinary: no complaints Musculoskeletal: no complaints Skin: no complaints Neurologic: no complaints Endocrine: no complaints Lymphatic: no complaints Psychological: anxiety Immunologic: no complaints PMH/Family/Social Past Medical History 1. Congestive heart failure. 2. Cardiomyopathy. 3. CAD status post multiple PCI's and CABG. 4. Diabetes mellitus type 2. 5. Dyslipidemia. 6. Hypertension. 7. Nicotine use. 8. Peripheral artery disease. 9. Anxiety disorder. Medications Current Medications Ondansetron HCl (Zofran Inj) 4 mg ER BRIDGE PRN IV NAUSEA/VOMITING; Start 02/20/19 at 06:00; Stop 02/21/19 at 05:59 Acetaminophen (Tylenol Tab) 650 mg ER BRIDGE PRN PO .MILD PAIN 1-3 OR TEMP; Start 02/20/19 at 06:00; Stop 02/21/19 at 05:59 Aspirin (Halfprin) 81 mg DAILY PO Last administered on 02/20/19at 09:16; Admin Dose 81 MG; Start 02/20/19 at 09:00 Atorvastatin Calcium (Lipitor) 80 mg QHS PO ; Start 02/20/19 at 21:00 Carvedilol (Coreg) 25 mg BID PO Last administered on 02/20/19at 09:15; Admin Dose 25 MG; Start 02/20/19 at 09:00 Clopidogrel Bisulfate (plaVIX) 75 mg DAILY PO Last administered on 02/20/19at 09:16; Admin Dose 75 MG; Start 02/20/19 at 09:00 Famotidine (Pepcid) 20 mg DAILY PO Last administered on 02/20/19at 09:16; Admin Dose 20 MG; Start 02/20/19 at 09:00 Furosemide (Lasix) 40 mg DAILY PO Last administered on 02/20/19at 09:16; Admin Dose 40 MG; Start 02/20/19 at 09:00 Insulin Glargine (Lantus) 45 units QHS SC ; Start 02/20/19 at 21:00 Lorazepam (Ativan) 0.5 mg Q6H PRN PO ANXIETY Last administered on 02/20/19at 09:59; Admin Dose 0.5 MG; Start 02/20/19 at 06:30 Losartan Potassium (Cozaar) 50 mg BID PO Last administered on 02/20/19at 09:16; Admin Dose 50 MG; Start 02/20/19 at 09:00 Magnesium Hydroxide (Milk Of Mag) 30 ml DAILY PO Last administered on 02/20/19at 09:16; Admin Dose 30 ML; Start 02/20/19 at 09:00 Spironolactone (Aldactone) 25 mg DAILY@0600 PO Last administered on 02/20/19at 09:00; Admin Dose 25 MG; Start 02/21/19 at 06:00 Insulin Aspart (Novolog Insulin Pen) 15 unit AC MEALS SC Last administered on 02/20/19at 07:00; Admin Dose 15 UNIT; Start 02/20/19 at 07:00 IV Flush (NS 3 ml) 3 ml PER PROTOCOL IV ; Start 02/20/19 at 06:30 Ondansetron HCl (Zofran Inj) 4 mg Q6H PRN IV NAUSEA/VOMITING; Start 02/20/19 at 06:30 Nitroglycerin (Nitroglycerin (Sl Tab) 0.4 Mg) 1 tab Q5M PRN SL .CHEST PAIN; Start 02/20/19 at 06:30 Acetaminophen (Tylenol Tab) 650 mg Q6H PRN PO .PAIN 1-3 OR TEMP; Start 02/20/19 at 06:30 Morphine Sulfate (morphine) 2 mg Q4H PRN IV .PAIN 7-10; Start 02/20/19 at 06:30 Docusate Sodium (Colace) 100 mg Q12H PRN PO .CONSTIPATION; Start 02/20/19 at 06:30 Bisacodyl (Dulcolax) 5 mg DAILY PRN PO .CONSTIPATION; Start 02/20/19 at 06:30 Miscellaneous Information 1 ea NOTE XX ; Start 02/20/19 at 06:00 Glucose (Glutose) 15 gm Q15M PRN PO DECREASED GLUCOSE; Start 02/20/19 at 06:00 Glucose (Glutose) 22.5 gm Q15M PRN PO DECREASED GLUCOSE; Start 02/20/19 at 06:00 Dextrose (D50w Syringe) 25 ml Q15M PRN IV DECREASED GLUCOSE; Start 02/20/19 at 06:00 Dextrose (D50w Syringe) 50 ml Q15M PRN IV DECREASED GLUCOSE; Start 02/20/19 at 06:00 Glucagon (Glucagen) 1 mg Q15M PRN IM DECREASED GLUCOSE; Start 02/20/19 at 06:00 Glucose (Glutose) 15 gm Q15M PRN BUCCAL DECREASED GLUCOSE; Start 02/20/19 at 06:00 Coded Allergies: No Known Allergy (Unverified , 11/11/18) Past Surgical History Past Surgical Hx: angioplasty, coronary bypass surgery, other ( Left femoral to posterior tibial bypass grafting using cadaveric vein with left femoral endarterectomy and left tibial endarterectomy on 04/15/2018. Left below-knee amputation in 2019.) Family History Significant Family History: no pertinent family hx Social History Alcohol Use: occasionally Smoking Status: Current some day smoker (Had quit smoking 6 years ago. However, restarted recently. 1 pack of cigarettes lasts for 3 days.) Drug Use: none Exam/Review of Systems Vital Signs Vitals Vital Signs Date Temp Pulse Resp B/P (MAP) Pulse Ox O2 O2 Flow FiO2 Time Delivery Rate 02/20/19 83 14 156/90 98 Room Air 07:53 (112) 02/20/19 98.4 06:15 Exam Exam General: Adequately build 63 year-old male lying in bed in no apparent distress. HEENT: Normocephalic, atraumatic. Eyes: Anicteric sclerae, conjunctivae clear. ENT: Nasal septum midline, oral mucosa moist. Neck supple. Respiratory: Bilaterally diminished breath sounds. No use of accessory muscles of respiration. No adventitious breath sounds. Cardiovascular: S1, S2 heard. Regular rate and rhythm. Abdomen: Soft, nontender, and nondistended. Bowel sounds positive in all 4 quadrants. Genitourinary: Deferred. Extremities: No cyanosis, no clubbing, no edema. Peripheral pulses palpable. Left below-knee amputation. Neurologic: Cranial nerves II through XII grossly intact. The patient is awake, alert, and oriented. Skin: Normal skin turgor. No skin rashes. Additional Comments CXR IMPRESSION: 1. Status post median sternotomy. 2. Cardiomegaly. 2. Mild pulmonary vascular congestion. TASHA WATERS NP Feb 20, 2019 10:03
[2019-02-20 15:26] VITALS: Ht 177.8 cm; Wt 86.0 kg
[2019-02-20 15:34] VITALS: BP 163/106; PULSE 77; RESP 18
[2019-02-20 16:01] VITALS: PULSE 76
[2019-02-20] MEDS: morphine 2 MG INJ IV PRN (16:22)
[2019-02-20 18:26] VITALS: BP 147/76; PULSE 67; RESP 20
[2019-02-20] MEDS ORDERED: HYDROCODONE/APAP (7.5/325) TAB PO PRN (19:00)
--- NOTE | 2019-02-20 19:06 | CONS ---
Assessment/Plan Cardiology Heart Failure Type: Chronic Heart Failure Type: Both Assessment/Plan Hospital Course (Demo Recall) 63 yo with known CAD, ischemic cardiomyopathy presents with elevated blood pressures and chest pain. He appears euvolemic on exam, troponins negative, and CXR shows only mild congestion at worst. One possible etiology is that he has been taking motrin at home for pain, which will raise blood pressure and can exacerbate heart failure. Impression: Chest pain, resolved Chronic systolic and diastolic heart failure, appears euvolemic at present. s/p BKA this year due to PVD, with uncontrolled pain, for which he's been taking motrin DM, uncontrolled CAD, s/p CABG 2017 Recommendations: Continue home heart failure meds Advised no NSAID's, I have prescribed [place] in the hospital for pain Consider changing losartan to Entresto, will defer to Dr. Borges No further cardiac workup needed at this point. Consultation Date/Type/Reason Admit Date/Time Date of Consultation: Feb 20, 2019 Type of Consult Cardiology Reason for Consultation chest pain Requesting Provider: TASHA WATERS NP Date/Time of Note DATE: 02/20/19 TIME: 18:57 Hx of Present Illness 63 yo with CAD, ischemic cardiomyopathy, pvd s/p bka amputation for gangrene at [facility] about 2 months ago, tobacco abuse, diabetes, presents with chest pain episodes associated with elevated blood pressure. At present patient has no dyspnea and no chest pain, his main complaint is pain in his right bka stump at about 4-5 out of ten. He has been taking Motrin at home for pain, in addition to another medication that he cannot name. Constitutional: no complaints Eyes: no complaints ENT: no complaints Respiratory: no complaints Cardiovascular: chest pain Gastrointestinal: no complaints Genitourinary: no complaints Musculoskeletal: bone/joint pain (stump) Skin: no complaints Neurologic: no complaints Endocrine: no complaints Lymphatic: no complaints Psychological: no complaints Immunologic: no complaints Past Medical History Medical History: congestive heart failure, coronary artery disease, diabetes, high cholesterol, hypertension Home Meds Active Scripts Cephalexin* (Keflex*) 500 Mg Capsule, 500 MG PO TID for 7 Days, CAP Prov:KANCHAN KELLY MD 01/16/19 Insulin Lispro (Humalog Kwikpen U-100) 100 Unit/1 Ml Insuln.pen, 15 UNIT SQ AC MEALS, #1 SYR #100 32 GAUGE INSULIN PEN NEEDLES Prov:JOHNSTONRENATA Pyle SOCIAL INSURANCE ADMINISTRATOR 11/12/18 Spironolactone* (Aldactone*) 25 Mg Tablet, 25 MG PO DAILY@0600, #30 TAB Prov:JOHNSTONANDREEARENATA V. SOCIAL INSURANCE ADMINISTRATOR 11/12/18 Carvedilol* (Carvedilol*) 6.25 Mg Tablet, 25 MG PO BID for 30 Days, #60 TAB Prov:JOHNSTONRENATA V. SOCIAL INSURANCE ADMINISTRATOR 11/12/18 Clopidogrel Bisulfate (Clopidogrel) 75 Mg Tablet, 75 MG PO DAILY for 30 Days, #30 TAB Prov:KAYCEE SWARTZ MD 06/22/18 Losartan Potassium* (Losartan Potassium*) 50 Mg Tablet, 50 MG PO BID for 30 Days, #60 TAB Prov:KAYCEE SWARTZ MD 06/21/18 Albuterol Sulfate* (Proair HFA*) 8.5 Gm Hfa.aer.ad, 2 PUFF INH Q4 for SHORTNESS OF BREATH, #1 INHALER Prov:TASHA WATERS SOCIAL INSURANCE ADMINISTRATOR 11/15/17 Reported Medications Metformin Hcl* (Metformin Hcl*) 1,000 Mg Tablet, 1000 MG PO WITH LUNCH DINNER, #30 TAB 09/23/18 Nitroglycerin* (Nitrostat*) 0.4 Mg Tab.subl, 0.4 MG SL Q5MIN PRN for CHEST PAIN, BOTTLE 06/19/18 Magnesium Hydroxide* (Naylor' MOM*) 30 Ml Susp, 30 ML PO DAILY, ML 06/19/18 Lorazepam* (Lorazepam*) 0.5 Mg Tablet, 0.5 MG PO Q6 PRN for ANXIETY, TAB 06/19/18 Furosemide* (Furosemide*) 40 Mg/5 Ml Solution, 40 MG PO DAILY, #150 ML 06/19/18 Famotidine* (Famotidine*) 20 Mg Tablet, 20 MG PO DAILY, #30 TAB 06/19/18 Atorvastatin* (Atorvastatin*) 80 Mg Tablet, 80 MG PO QHS, #30 TAB 06/19/18 Aspirin Ec (Aspir 81) 81 Mg Tablet.dr, 81 MG PO DAILY, #30 TAB 06/19/18 Insulin Glargine* (Lantus*) 100 Unit/Ml Soln, 45 UNIT SC QHS, #1 VIAL 06/19/18 Albuterol Sulfate* (Albuterol Sulfate* Neb) 0.083%-3 Ml Neb, 2.5 MG NEB Q3H PRN for WHEEZING AND SOB, #30 VIAL 06/19/18 Medications Current Medications Ondansetron HCl (Zofran Inj) 4 mg ER BRIDGE PRN IV NAUSEA/VOMITING; Start 02/20 at 06:00; Stop 02/21/19 at 05:59 Acetaminophen (Tylenol Tab) 650 mg ER BRIDGE PRN PO .MILD PAIN 1-3 OR TEMP; Start 02/20/19 at 06:00; Stop 02/21/19 at 05:59 Aspirin (Halfprin) 81 mg DAILY PO Last administered on 02/20/19 09:16; Admin Dose 81 MG; Start 02/20/19 at 09:00 Atorvastatin Calcium (Lipitor) 80 mg QHS PO ; Start 02/20/19 at 21:00 Carvedilol (Coreg) 25 mg BID PO Last administered on 02/20/19at 09:15; Admin Dose 25 MG; Start 02/20/19 at 09:00 Clopidogrel Bisulfate (plaVIX) 75 mg DAILY PO Last administered on 02/20/19 09:16; Admin Dose 75 MG; Start 02/20/19 at 09:00 Famotidine (Pepcid) 20 mg DAILY PO Last administered on 02/20/19 09:16; Admin Dose 20 MG; Start 02/20/19 at 09:00 Furosemide (Lasix) 40 mg DAILY PO Last administered on 02/20/19 09:16; Admin Dose 40 MG; Start 02/20/19 at 09:00 Insulin Glargine (Lantus) 45 units QHS SC ; Start 02/20/19 at 21:00 Lorazepam (Ativan) 0.5 mg Q6H PRN PO ANXIETY Last administered on 02/20/19 18:26; Admin Dose 0.5 MG; Start 02/20/19 at 06:30 Losartan Potassium (Cozaar) 50 mg BID PO Last administered on 02/20/19 09:16; Admin Dose 50 MG; Start 02/20/19 at 09:00 Magnesium Hydroxide (Milk Of Mag) 30 ml DAILY PO Last administered on 02/20/19 09:16; Admin Dose 30 ML; Start 02/20/19 at 09:00 Spironolactone (Aldactone) 25 mg DAILY@0600 PO Last administered on 02/20/19at 09:00; Admin Dose 25 MG; Start 02/21/19 at 06:00 Insulin Aspart (Novolog Insulin Pen) 15 unit AC MEALS SC Last administered on 02/20/19at 17:37; Admin Dose 15 UNIT; Start 02/20/19 at 07:00 IV Flush (NS 3 ml) 3 ml PER PROTOCOL IV ; Start 02/20/19 at 06:30 Ondansetron HCl (Zofran Inj) 4 mg Q6H PRN IV NAUSEA/VOMITING; Start 02/20/19 at 06:30 Nitroglycerin (Nitroglycerin (Sl Tab) 0.4 Mg) 1 tab Q5M PRN SL .CHEST PAIN; Start 02/20/19 at 06:30 Acetaminophen (Tylenol Tab) 650 mg Q6H PRN PO .PAIN 1-3 OR TEMP; Start 02/20/19 at 06:30 Morphine Sulfate (morphine) 2 mg Q4H PRN IV .PAIN 7-10 Last administered on 02/20/19at 16:22; Admin Dose 2 MG; Start 02/20/19 at 06:30 Docusate Sodium (Colace) 100 mg Q12H PRN PO .CONSTIPATION; Start 02/20/19 at 06:30 Bisacodyl (Dulcolax) 5 mg DAILY PRN PO .CONSTIPATION; Start 02/20/19 at 06:30 Miscellaneous Information 1 ea NOTE XX ; Start 02/20/19 at 06:00 Glucose (Glutose) 15 gm Q15M PRN PO DECREASED GLUCOSE; Start 02/20/19 at 06:00 Glucose (Glutose) 22.5 gm Q15M PRN PO DECREASED GLUCOSE; Start 02/20/19 at 06:0 0 Dextrose (D50w Syringe) 25 ml Q15M PRN IV DECREASED GLUCOSE; Start 02/20/19 at 06:00 Dextrose (D50w Syringe) 50 ml Q15M PRN IV DECREASED GLUCOSE; Start 02/20/19 at 06:00 Glucagon (Glucagen) 1 mg Q15M PRN IM DECREASED GLUCOSE; Start 02/20/19 at 06:00 Glucose (Glutose) 15 gm Q15M PRN BUCCAL DECREASED GLUCOSE; Start 02/20/19 at 06:00 Enoxaparin Sodium (Lovenox) 40 mg DAILY SC ; Start 02/21/19 at 09:00 Allergies: Coded Allergies: No Known Allergy (Unverified , 11/11/18) Past Surgical History Past Surgical Hx: angioplasty, coronary bypass surgery, other ( Left femoral to posterior tibial bypass grafting using cadaveric vein with left femoral endarterectomy and left tibial endarterectomy on 04/15/2018. Left below-knee amputation in 2019.) Family History Significant Family History: no pertinent family hx Social History Alcohol Use: occasionally Smoking Status: Current every day smoker Drug Use: none Exam/Review of Systems Vital Signs Vitals Vital Signs Date Temp Pulse Resp B/P (MAP) Pulse Ox O2 O2 Flow FiO2 Time Delivery Rate 02/20/19 67 20 147/76 Room Air 18:26 (99) 02/20/19 97.2 98 15:34 Exam Constitutional: alert, oriented, well developed Psych: nl mood/affect Head: normocephalic, atraumatic Eyes: EOMI, nl lids, nl sclera ENMT: nl external ears & nose, nl lips & teeth Neck: supple; No jvd, No bruits Respiratory: clear to auscultation, normal air movement Cardiovascular: regular rate and rhythm; No murmurs/extra sounds Gastrointestinal: soft, nl liver, spleen, non-tender Musculoskeletal: other (left BKA, stump ) Extremities: No edema Neurological: nl mental status, nl speech Skin: nl turgor; No rash or lesions Labs Result Diagram: 02/20/19 0500 02/20/19 0500 Results 24hrs Laboratory Tests Test 02/20/19 04:18 02/20/19 05:00 02/20/19 06:40 02/20/19 09:04 Hemoglobin A1c 8.1 H White Blood Count 6.7 # Red Blood Count 4.27 L Hemoglobin 11.0 L Hematocrit 35.7 L Mean Corpuscular 83.6 Volume Mean Corpuscular 25.8 L Hemoglobin Mean Corpuscular 30.8 L Hemoglobin Concent Red Cell 16.8 H Distribution Width Platelet Count 227 Mean Platelet Volume 11.2 H Immature 0.400 Granulocytes % Neutrophils % 56.3 Lymphocytes % 33.8 Monocytes % 7.6 Eosinophils % 1.5 Basophils % 0.4 Nucleated Red Blood 0.0 Cells % Immature 0.030 Granulocytes # Neutrophils # 3.8 Lymphocytes # 2.3 Monocytes # 0.5 Eosinophils # 0.1 Basophils # 0.0 Nucleated Red Blood 0.0 Cells # Sodium Level 140 Potassium Level 4.0 Chloride Level 108 Carbon Dioxide Level 26 Anion Gap 6 Blood Urea Nitrogen 15 Creatinine 0.74 Est Glomerular > 60 Filtrat Rate mL/min Glucose Level 225 H Calcium Level 9.5 Troponin I < 0.012 Free Thyroxine 1.34 Bedside Glucose 193 320 H Test 02/20/19 10:11 02/20/19 10:13 02/20/19 11:50 02/20/19 15:35 Creatine Kinase 103 106 Creatine Kinase 2.2 1.9 Index Creatinine Kinase MB 2.24 2.06 (Mass) Troponin I < 0.012 < 0.012 B-Type Natriuretic 2260 H Peptide Thyroid Stimulating 1.690 Hormone (TSH) Bedside Glucose 152 Test 02/20/19 17:34 Bedside Glucose 195 Imaging Imaging EKG shows NSR at 84 bpm, LVH with repolarization abnormality Medications Medications Current Medications Ondansetron HCl (Zofran Inj) 4 mg ER BRIDGE PRN IV NAUSEA/VOMITING; Start 02/20/19 at 06:00; Stop 02/21/19 at 05:59 Acetaminophen (Tylenol Tab) 650 mg ER BRIDGE PRN PO .MILD PAIN 1-3 OR TEMP; Start 02/20/19 at 06:00; Stop 02/21/19 at 05:59 Aspirin (Halfprin) 81 mg DAILY PO Last administered on 02/20/19at 09:16; Admin Dose 81 MG; Start 02/20/19 at 09:00 Atorvastatin Calcium (Lipitor) 80 mg QHS PO ; Start 02/20/19 at 21:00 Carvedilol (Coreg) 25 mg BID PO Last administered on 02/20/19at 09:15; Admin Dose 25 MG; Start 02/20/19 at 09:00 Clopidogrel Bisulfate (plaVIX) 75 mg DAILY PO Last administered on 02/20/19 09:16; Admin Dose 75 MG; Start 02/20/19 at 09:00 Famotidine (Pepcid) 20 mg DAILY PO Last administered on 02/20/19at 09:16; Admin Dose 20 MG; Start 02/20/19 at 09:00 Furosemide (Lasix) 40 mg DAILY PO Last administered on 02/20/19at 09:16; Admin Dose 40 MG; Start 02/20/19 at 09:00 Insulin Glargine (Lantus) 45 units QHS SC ; Start 02/20/19 at 21:00 Lorazepam (Ativan) 0.5 mg Q6H PRN PO ANXIETY Last administered on 02/20/19at 18:26; Admin Dose 0.5 MG; Start 02/20/19 at 06:30 Losartan Potassium (Cozaar) 50 mg BID PO Last administered on 02/20/19at 09:16; Admin Dose 50 MG; Start 02/20/19 at 09:00 Magnesium Hydroxide (Milk Of Mag) 30 ml DAILY PO Last administered on 02/20/19at 09:16; Admin Dose 30 ML; Start 02/20/19 at 09:00 Spironolactone (Aldactone) 25 mg DAILY@0600 PO Last administered on 02/20/19at 09:00; Admin Dose 25 MG; Start 02/21/19 at 06:00 Insulin Aspart (Novolog Insulin Pen) 15 unit AC MEALS SC Last administered on 02/20/19at 17:37; Admin Dose 15 UNIT; Start 02/20/19 at 07:00 IV Flush (NS 3 ml) 3 ml PER PROTOCOL IV ; Start 02/20/19 at 06:30 Ondansetron HCl (Zofran Inj) 4 mg Q6H PRN IV NAUSEA/VOMITING; Start 02/20/19 at 06:30 Nitroglycerin (Nitroglycerin (Sl Tab) 0.4 Mg) 1 tab Q5M PRN SL .CHEST PAIN; Start 02/20/19 at 06:30 Acetaminophen (Tylenol Tab) 650 mg Q6H PRN PO .PAIN 1-3 OR TEMP; Start 02/20/19 at 06:30 Morphine Sulfate (morphine) 2 mg Q4H PRN IV .PAIN 7-10 Last administered on 02/20/19at 16:22; Admin Dose 2 MG; Start 02/20/19 at 06:30 Docusate Sodium (Colace) 100 mg Q12H PRN PO .CONSTIPATION; Start 02/20/19 at 06:30 Bisacodyl (Dulcolax) 5 mg DAILY PRN PO .CONSTIPATION; Start 02/20/19 at 06:30 Miscellaneous Information 1 ea NOTE XX ; Start 02/20/19 at 06:00 Glucose (Glutose) 15 gm Q15M PRN PO DECREASED GLUCOSE; Start 02/20/19 at 06:00 Glucose (Glutose) 22.5 gm Q15M PRN PO DECREASED GLUCOSE; Start 02/20/19 at 06:00 Dextrose (D50w Syringe) 25 ml Q15M PRN IV DECREASED GLUCOSE; Start 02/20/19 at 06:00 Dextrose (D50w Syringe) 50 ml Q15M PRN IV DECREASED GLUCOSE; Start 02/20/19 at 06:00 Glucagon (Glucagen) 1 mg Q15M PRN IM DECREASED GLUCOSE; Start 02/20/19 at 06:00 Glucose (Glutose) 15 gm Q15M PRN BUCCAL DECREASED GLUCOSE; Start 02/20/19 at 06:00 Enoxaparin Sodium (Lovenox) 40 mg DAILY SC ; Start 02/21/19 at 09:00 COOPER DANIELLE Feb 20, 2019 19:06
[2019-02-20] MEDS: NITROGLYCERIN (SL) 0.4 MG TAB SL PRN (19:43)
[2019-02-20 20:00] VITALS: PULSE 72
[2019-02-20 20:03] VITALS: BP 145/74; PULSE 71; RESP 20
[2019-02-20] MEDS ORDERED: INSULIN GLARGINE [LANTus] (100 UNITS/ML) SYG SC SCH (21:00)
[2019-02-20] MEDS ORDERED: ATORVASTATIN 80 MG TAB PO SCH (21:00)
[2019-02-21] VITALS (9 sets, daily range): BP systolic 134–154; BP diastolic 68–83; PULSE 61–80; RESP 20
[2019-02-21] MEDS ORDERED: SPIRONOLACTONE 25 MG TAB PO SCH (06:00)
[2019-02-21] MEDS: NITROGLYCERIN (SL) 0.4 MG TAB SL PRN (07:51)
[2019-02-21] MEDS: INSULIN ASPART [NOVOLOG] 3 ML PEN SC SCH ×3 (08:03→17:29)
[2019-02-21] MEDS ORDERED: ENOXAPARIN 40 MG/0.4 ML SYG SC SCH (09:00)
[2019-02-21] MEDS: FAMOTIDINE 20 MG TAB PO SCH (09:00)
[2019-02-21] MEDS: ASPIRIN (EC) 81 MG TAB PO SCH (09:00)
[2019-02-21] MEDS: CLOPIDOGREL 75 MG TAB PO SCH (09:00)
[2019-02-21] MEDS: MAGNESIUM HYDROXIDE 30ML CUP PO SCH (09:00)
[2019-02-21] MEDS: FUROSEMIDE 40 MG TAB PO SCH (09:02)
[2019-02-21] MEDS: LOSARTAN 50 MG TAB PO SCH (09:03)
[2019-02-21] MEDS: morphine 2 MG INJ IV PRN (10:27)
[2019-02-21] MEDS ORDERED: AMLO2.5T78 PO (10:36)
--- NOTE | 2019-02-21 10:44 | DS ---
Date/Time of Note Date/Time of Note DATE: 02/21/19 TIME: 10:37 Discharge Summary Admission/Discharge Info Admit Date/Time Feb 20, 2019 at 05:56 Discharge Date/Time Discharge Diagnosis 1. Chest pressure, considered severe hypertension related, resolved 2. Hypertension, added norvasc, follow up with PCP 3. CAD, status post CABG, stable 4. CHF, systolic, acute on chronic, improved, follow up with cardiology 5. Ischemic cardiomyopathy 6. Diabetes mellitus type 2, on insulin and metformin 7. Dyslipidemia, on lipitor 8. Peripheral artery disease, s/p left below-knee amputation, follow up with PCP 9. Normocytic anemia, stable, follow up with PCP 10. Nicotine use, Cessation advised. Patient Condition: Stable Hospital Course 63-year-old male with comorbidities including hypertension, diabetes mellitus type 2, congestive heart failure, ischemic cardiomyopathy, CAD status post multiple percutaneous coronary interventions and CABG presented with severe high blood pressure over 200 and pulse 130s along with pressure like feeling on the chest. Blood pressure has been stable after admission and chest pressure feeling resolved. Troponin is negative, ECG with sinus tachycardia, CXR with mild vascular congestion. The chest pressure is considered severe hypertension related. Patient had an unremarkable stress test done about 1.5 months ago. I add norvasc 2.5 mg po daily for better blood pressure control, patient will follow up with PCP and cardiology for antihypertensive adjustment. Patient has intermittent left chest numbness after CABG in 2018, nonexertional. That is not considered cardiac. Home Meds Active Scripts Amlodipine Besylate* (Amlodipine Besylate*) 2.5 Mg Tablet, 2.5 MG PO DAILY for 30 Days, TAB Prov:SPEEDY BASS MD 02/21/19 Insulin Lispro (Humalog Kwikpen U-100) 100 Unit/1 Ml Insuln.pen, 15 UNIT SQ AC MEALS, #1 SYR #100 32 GAUGE INSULIN PEN NEEDLES Prov:JOHNSTON,RENATA V. CHERRY PITTER 11/12/18 Spironolactone* (Aldactone*) 25 Mg Tablet, 25 MG PO DAILY@0600, #30 TAB Prov:JOHNSTON,RENATA V. CHERRY PITTER 11/12/18 Carvedilol* (Carvedilol*) 6.25 Mg Tablet, 25 MG PO BID for 30 Days, #60 TAB Prov:JOHNSTON,RENATA V. CHERRY PITTER 11/12/18 Clopidogrel Bisulfate (Clopidogrel) 75 Mg Tablet, 75 MG PO DAILY for 30 Days, #30 TAB Prov:KAYCEE SWARTZ MD 06/22/18 Losartan Potassium* (Losartan Potassium*) 50 Mg Tablet, 50 MG PO BID for 30 Days, #60 TAB Prov:KAYCEE SWARTZ MD 06/21/18 Albuterol Sulfate* (Proair HFA*) 8.5 Gm Hfa.aer.ad, 2 PUFF INH Q4 for SHORTNESS OF BREATH, #1 INHALER Prov:TASHA WATERS CHERRY PITTER 11/15/17 Reported Medications Metformin Hcl* (Metformin Hcl*) 1,000 Mg Tablet, 1000 MG PO WITH LUNCH DINNER, #30 TAB 09/23/18 Nitroglycerin* (Nitrostat*) 0.4 Mg Tab.subl, 0.4 MG SL Q5MIN PRN for CHEST PAIN, BOTTLE 06/19/18 Magnesium Hydroxide* (Naylor' MOM*) 30 Ml Susp, 30 ML PO DAILY, ML 06/19/18 Lorazepam* (Lorazepam*) 0.5 Mg Tablet, 0.5 MG PO Q6 PRN for ANXIETY, TAB 06/19/18 Furosemide* (Furosemide*) 40 Mg/5 Ml Solution, 40 MG PO DAILY, #150 ML 06/19/18 Famotidine* (Famotidine*) 20 Mg Tablet, 20 MG PO DAILY, #30 TAB 06/19/18 Atorvastatin* (Atorvastatin*) 80 Mg Tablet, 80 MG PO QHS, #30 TAB 06/19/18 Aspirin Ec (Aspir 81) 81 Mg Tablet.dr, 81 MG PO DAILY, #30 TAB 06/19/18 Insulin Glargine* (Lantus*) 100 Unit/Ml Soln, 45 UNIT SC QHS, #1 VIAL 06/19/18 Discontinued Reported Medications Albuterol Sulfate* (Albuterol Sulfate* Neb) 0.083%-3 Ml Neb, 2.5 MG NEB Q3H PRN for WHEEZING AND SOB, #30 VIAL 06/19/18 Discontinued Scripts Cephalexin* (Keflex*) 500 Mg Capsule, 500 MG PO TID for 7 Days, CAP Prov:KANCHAN KELLY MD 01/16/19 Follow-up Plan PCP and cardiology in one week Primary Care Provider Zara Hill Pending Labs Laboratory Tests Test 02/20/19 11:50 02/20/19 15:35 02/20/19 17:34 02/20/19 21:24 Bedside 152 195 117 Glucose mg/dL (70-220) mg/dL (70-220) mg/dL (70-220) Creatine 106 Kinase IU/L (23-200) Creatine Kinase 1.9 Index Creatinine 2.06 Kinase MB ng/ml (0.0-2.4 (Mass) ) Troponin I < 0.012 ng/ml (0.000-0 .120) Test 02/21/19 03:43 02/21/19 06:08 02/21/19 06:09 02/21/19 07:49 Bedside 177 214 Glucose mg/dL (70-220) mg/dL (70-220) White Blood 7.4 Count 10^3/ul (4.8-1 0.8) Red Blood 4.50 Count 10^6/ul (4.70- 6.10) Hemoglobin 11.6 g/dl (14.0-18. 0) Hematocrit 38.0 % (42.0-52.0) Mean 84.4 Corpuscular fl (82.0-101.0 Volume ) Mean 25.8 Corpuscular pg (29.0-33.0) Hemoglobin Mean 30.5 Corpuscular g/dl (32.0-37. Hemoglobin Conc 0) ent Red Cell 16.7 Distribution % (11.5-14.5) Width Platelet Count 223 10^3/UL (140-4 15) Mean Platelet 11.5 Volume fl (7.4-10.4) Immature 0.300 Granulocytes % % (0.001-0.429 ) Neutrophils % 60.5 % (39.0-77.0) Lymphocytes % 30.8 % (15.0-51.0) Monocytes % 6.5 % (0.0-11.0) Eosinophils % 1.5 % (0.0-7.0) Basophils % 0.4 % (0.0-2.0) Nucleated Red 0.0 Blood Cells % /100WBC (0.0-0 .0) Immature 0.020 Granulocytes # 10^3/ul (0.0-0 .031) Neutrophils # 4.5 10^3/ul (1.6-7 .5) Lymphocytes # 2.3 10^3/ul (0.8-2 .9) Monocytes # 0.5 10^3/ul (0.3-0 .9) Eosinophils # 0.1 10^3/ul (0.0-0 .5) Basophils # 0.0 10^3/ul (0.0-0 .1) Nucleated Red 0.0 Blood Cells # 10^3/ul (0.0-0 .0) Phosphorus 4.2 Level mg/dl (2.5-4.9 ) Magnesium 1.9 Level mg/dl (1.7-2.5 ) Troponin I < 0.012 ng/ml (0.000-0 .120) Triglycerides 224 Level mg/dl (0-149) Cholesterol 203 Level mg/dl (100-200 ) LDL 121 mg/dl Cholesterol, Calculated HDL 37 Cholesterol mg/dl (30-78) Cholesterol/HDL 5.4 RATIO Ratio Sodium Level 138 mmol/L (135-14 4) Potassium 4.1 Level mmol/L (3.5-5. 1) Chloride Level 105 mmol/L (97-110 ) Carbon Dioxide 26 Level mmol/L (21-31) Anion Gap 7 (5-13) Blood Urea 15 Nitrogen mg/dl (7-20) Creatinine 0.79 mg/dl (0.61-1. 24) Est Glomerular > 60 Filtrat mL/min (>60) Rate mL/min Glucose Level 192 mg/dl (70-220) Calcium Level 9.5 mg/dl (8.4-10. 2) Total 0.5 Bilirubin mg/dl (0.2-1.3 ) Direct 0.00 Bilirubin mg/dl (0.00-0. 20) Indirect 0.5 Bilirubin mg/dl (0-1.1) Aspartate Amino 23 Transf (AST/SGO IU/L (15-46) T) Alanine 19 Aminotransferas IU/L (13-69) e (ALT/SGPT) Alkaline 69 Phosphatase IU/L (42-121) Total Protein 7.1 g/dl (6.1-8.1) Albumin 3.8 g/dl (3.3-4.9) Globulin 3.30 g/dl (1.3-3.2) Albumin/Globuli 1.15 n Ratio SPEEDY BASS MD Feb 21, 2019 10:44
[2019-02-21] MEDS ORDERED: AMLODIPINE 2.5 MG TAB PO SCH (11:00)
[2019-02-21] MEDS: LORAZEPAM 0.5 MG TAB PO PRN (13:28)
--- NOTE | 2019-02-21 14:10 | RADRPT ---
Echocardiogram Report Patient Name: MICHELLE LAWPatient ID: [id number] : 1955 ([id number] )Study Date: 02/20/2019 8:57:34 AM Gender: MAccession #: [id number] Tech: Daphne HassanAZULALEKSANDRA Location: E/R Ref.Physician: SUSHILA GOODMAN Height(Cm): BSA: Weight(Kg): Quality: AdequateAccount #: Procedures: Echocardiographic Report: Transthoracic echocardiogram with complete 2D, M-Mode, and doppler examination. Indications: Chest Pain. Measurements: 2D/M Mode Doppler Measurement Value Normal Range Measurement Value Normal Range LVIDd 2D 5.1 [ 4.2 - 5.8 ] cm AV Peak Evan 1.3 [ 100.0 - 170.0 ] cm/sec LVIDs 2D 3.8 [ 2.5 - 4.0 ] cm AV Peak PG 7.0 [ 2.0 - 9.0 ] mmHg LVPWd 2D 1.2 [ 0.6 - 1.0 ] cm LVOT Peak Evan 0.8 [ 70.0 - 110.0 ] cm/sec IVSd 2D 0.9 [ 0.6 - 1.0 ] cm LVOT Peak PG 3.0 [ 2.0 - 6.0 ] mmHg IVS/LVPW 2D 0.7 ratio MV E Peak Evan 1.1 [ 60.0 - 130.0 ] cm/sec AoR Diam 2D 2.9 [ 2.6 - 3.4 ] cm MV A Peak Evan 0.3 [ 100.0 - 120.0 ] cm/sec LA/Ao 2D 1 ratio MV E/A 4.4 [ 0.8 - 1.5 ] ratio LA Dimen 2D 4.0 [ 3.0 - 4.0 ] cm MV Decel Time 243 [ 104 - 258 ] msec Lat E` Evan 0.1 [ 10.0 - 15.0 ] cm/sec Med E` Evan 0.0 cm/sec MV E/A 4.4 [ 0.8 - 1.5 ] ratio Findings: Left Ventricle: Normal left ventricular systolic function. Normal left ventricular cavity size. Mild hypertrophy of the basal septum. Severe left ventricular systolic dysfunction. Ejection fraction is visually estimated at 25-30 %. Tissue Doppler/Mitral Doppler indices are within normal limits. Right Ventricle: Normal right ventricular size. Normal right ventricular systolic function. Left Atrium: The left atrium is normal in size. Right Atrium: The right atrium is normal in size. Atrial Septum: Normal atrial septum. Ventricular septum: Normal/intact ventricular septum. Mitral Valve: Normal appearance of the mitral valve. Trace mitral regurgitation. Aortic Valve: Normal appearance of the aortic valve. No aortic regurgitation. Tricuspid Valve: Normal appearance of the tricuspid valve. Unable to obtain RVSP due to minimal presence of tricuspid regurgitation. There is trace tricuspid regurgitation. Pulmonic Valve: Normal pulmonic valve appearance. No evidence of pulmonic regurgitation. Pericardium: Normal pericardium with no significant pericardial effusion. Trivial pericardial effusion. Aorta: Normal aortic root. IVC: Normal size and normal respiratory collapse consistent with normal right atrial pressure. The IVC is not well visualized. Conclusions: Normal left ventricular systolic function. Normal left ventricular cavity size. Mild hypertrophy of the basal septum. Severe left ventricular systolic dysfunction. Ejection fraction is visually estimated at 25-30 %. Tissue Doppler/Mitral Doppler indices are within normal limits. The left atrium is normal in size. Normal appearance of the mitral valve. Trace mitral regurgitation. Normal appearance of the aortic valve. No aortic regurgitation. Normal appearance of the tricuspid valve. Unable to obtain RVSP due to minimal presence of tricuspid regurgitation. There is trace tricuspid regurgitation. Normal size and normal respiratory collapse consistent with normal right atrial pressure. The IVC is not well visualized. Electronically Signed By: Justin Borges 2019-02-21 14:09:50 PDT
--- NOTE | 2019-02-21 15:02 | CONS ---
Consult Date/Type/Reason Admit Date/Time Feb 20, 2019 at 05:56 Initial Consult Date 02/20/19 Type of Consultation: cv Requesting Provider: TASHA WATERS NP Date/Time of Note DATE: 02/21/19 TIME: 14:59 Subjective Cardiology follow-up progress note Subjective: Discussed with the staff and telemetry was reviewed patient has remained in sinus rhythm. No chest pain or pressure no palpitation. He reports that his blood pressure has been elevated at home but currently is well controlled. Objective: General: no acute distress HEENT: NC/AT. pupils are equal. round. NECK: NO JVD. no stridor. CV: RRR. systolic murmur; no gallop or rubs. PULM: no wheezing or rhonchi. GI: SOFT, NT, ND, no rebound or guarding Extremity: Status post left BKA neuro: awake and alert, OX3. Psych: calm and pleasant rectal: deferred : normal . Echocardiogram was personally reviewed which shows: Normal left ventricular systolic function. Normal left ventricular cavity size. Mild hypertrophy of the basal septum. Severe left ventricular systolic dysfunction. Ejection fraction is visually estimated at 25-30 %. Tissue Doppler/Mitral Doppler indices are within normal limits. The left atrium is normal in size. Normal appearance of the mitral valve. Trace mitral regurgitation. Normal appearance of the aortic valve. No aortic regurgitation. Normal appearance of the tricuspid valve. Unable to obtain RVSP due to minimal presence of tricuspid regurgitation. There is trace tricuspid regurgitation. Normal size and normal respiratory collapse consistent with normal right atrial pressure. The IVC is not well visualized. Objective Vitals Vital Signs Date Temp Pulse Resp B/P (MAP) Pulse Ox O2 O2 Flow FiO2 Time Delivery Rate 02/21/19 69 12:01 02/21/19 98.4 20 134/68 96 Room Air 11:25 (90) 02/21/19 2.0 02:09 Intake and Output 02/20/19 02/20/19 02/21/19 1515:00 23:00 07:00 IntakeIntake Total 550 ml OutputOutput Total 700 ml 800 ml BalanceBalance -700 ml -250 ml Results/Medications Result Diagram: 02/21/19 0608 02/21/19 0609 Results 24 hrs Laboratory Tests Test 02/20/19 15:35 02/20/19 17:34 02/20/19 21:24 02/21/19 03:43 Creatine Kinase 106 Creatine Kinase 1.9 Index Creatinine Kinase MB 2.06 (Mass) Troponin I < 0.012 Bedside Glucose 195 117 177 Test 02/21/19 06:08 02/21/19 06:09 02/21/19 07:49 02/21/19 12:11 White Blood Count 7.4 Red Blood Count 4.50 L Hemoglobin 11.6 L Hematocrit 38.0 L Mean Corpuscular 84.4 Volume Mean Corpuscular 25.8 L Hemoglobin Mean Corpuscular 30.5 L Hemoglobin Concent Red Cell 16.7 H Distribution Width Platelet Count 223 Mean Platelet Volume 11.5 H Immature 0.300 Granulocytes % Neutrophils % 60.5 Lymphocytes % 30.8 Monocytes % 6.5 Eosinophils % 1.5 Basophils % 0.4 Nucleated Red Blood 0.0 Cells % Immature 0.020 Granulocytes # Neutrophils # 4.5 Lymphocytes # 2.3 Monocytes # 0.5 Eosinophils # 0.1 Basophils # 0.0 Nucleated Red Blood 0.0 Cells # Phosphorus Level 4.2 Magnesium Level 1.9 Troponin I < 0.012 Triglycerides Level 224 H Cholesterol Level 203 H LDL Cholesterol, 121 Calculated HDL Cholesterol 37 Cholesterol/HDL 5.4 Ratio Sodium Level 138 Potassium Level 4.1 Chloride Level 105 Carbon Dioxide Level 26 Anion Gap 7 Blood Urea Nitrogen 15 Creatinine 0.79 Est Glomerular > 60 Filtrat Rate mL/min Glucose Level 192 Calcium Level 9.5 Total Bilirubin 0.5 Direct Bilirubin 0.00 Indirect Bilirubin 0.5 Aspartate Amino 23 Transf (AST/SGOT) Alanine 19 Aminotransferase (AL T/SGPT) Alkaline Phosphatase 69 Total Protein 7.1 Albumin 3.8 Globulin 3.30 H Albumin/Globulin 1.15 Ratio Bedside Glucose 214 175 Home Meds Active Scripts Amlodipine Besylate* (Amlodipine Besylate*) 2.5 Mg Tablet, 2.5 MG PO DAILY for 30 Days, TAB Prov:SPEEDY BASS MD 02/21/19 Insulin Lispro (Humalog Kwikpen U-100) 100 Unit/1 Ml Insuln.pen, 15 UNIT SQ AC MEALS, #1 SYR #100 32 GAUGE INSULIN PEN NEEDLES Prov:JOHNSTON,RENATA V. SHAPER SETTER 11/12/18 Spironolactone* (Aldactone*) 25 Mg Tablet, 25 MG PO DAILY@0600, #30 TAB Prov:JOHNSTON,RENATA V. SHAPER SETTER 11/12/18 Carvedilol* (Carvedilol*) 6.25 Mg Tablet, 25 MG PO BID for 30 Days, #60 TAB Prov:RENATA JOHNSTON V. SHAPER SETTER 11/12/18 Clopidogrel Bisulfate (Clopidogrel) 75 Mg Tablet, 75 MG PO DAILY for 30 Days, #30 TAB Prov:KAYCEE SWARTZ MD 06/22/18 Losartan Potassium* (Losartan Potassium*) 50 Mg Tablet, 50 MG PO BID for 30 Days, #60 TAB Prov:KAYCEE SWARTZ MD 06/21/18 Albuterol Sulfate* (Proair HFA*) 8.5 Gm Hfa.aer.ad, 2 PUFF INH Q4 for SHORTNESS OF BREATH, #1 INHALER Prov:TASHA WATERS SHAPER SETTER 11/15/17 Reported Medications Metformin Hcl* (Metformin Hcl*) 1,000 Mg Tablet, 1000 MG PO WITH LUNCH DINNER, #30 TAB 09/23/18 Nitroglycerin* (Nitrostat*) 0.4 Mg Tab.subl, 0.4 MG SL Q5MIN PRN for CHEST PAIN, BOTTLE 06/19/18 Magnesium Hydroxide* (Naylor' MOM*) 30 Ml Susp, 30 ML PO DAILY, ML 06/19/18 Lorazepam* (Lorazepam*) 0.5 Mg Tablet, 0.5 MG PO Q6 PRN for ANXIETY, TAB 06/19/18 Furosemide* (Furosemide*) 40 Mg/5 Ml Solution, 40 MG PO DAILY, #150 ML 06/19/18 Famotidine* (Famotidine*) 20 Mg Tablet, 20 MG PO DAILY, #30 TAB 06/19/18 Atorvastatin* (Atorvastatin*) 80 Mg Tablet, 80 MG PO QHS, #30 TAB 06/19/18 Aspirin Ec (Aspir 81) 81 Mg Tablet.dr, 81 MG PO DAILY, #30 TAB 06/19/18 Insulin Glargine* (Lantus*) 100 Unit/Ml Soln, 45 UNIT SC QHS, #1 VIAL 06/19/18 Discontinued Reported Medications Albuterol Sulfate* (Albuterol Sulfate* Neb) 0.083%-3 Ml Neb, 2.5 MG NEB Q3H PRN for WHEEZING AND SOB, #30 VIAL 06/19/18 Discontinued Scripts Cephalexin* (Keflex*) 500 Mg Capsule, 500 MG PO TID for 7 Days, CAP Prov:KANCHAN KELLY MD 01/16/19 Medications Current Medications Aspirin (Halfprin) 81 mg DAILY PO Last administered on 02/21/19 09:00; Admin Dose 81 MG; Start 02/20/19 at 09:00 Atorvastatin Calcium (Lipitor) 80 mg QHS PO Last administered on 02/20/19 21:16; Admin Dose 80 MG; Start 02/20/19 at 21:00 Carvedilol (Coreg) 25 mg BID PO Last administered on 02/21/19 09:03; Admin Dose 25 MG; Start 02/20/19 at 09:00 Clopidogrel Bisulfate (plaVIX) 75 mg DAILY PO Last administered on 02/21/19 09:00; Admin Dose 75 MG; Start 02/20/19 at 09:00 Famotidine (Pepcid) 20 mg DAILY PO Last administered on 02/21/19 09:00; Admin Dose 20 MG; Start 02/20/19 at 09:00 Furosemide (Lasix) 40 mg DAILY PO Last administered on 02/21/19 09:02; Admin Dose 40 MG; Start 02/20/19 at 09:00 Insulin Glargine (Lantus) 45 units QHS SC Last administered on 02/20/19 21:30; Admin Dose 45 UNITS; Start 02/20/19 at 21:00 Lorazepam (Ativan) 0.5 mg Q6H PRN PO ANXIETY Last administered on 02/21/19 13:28; Admin Dose 0.5 MG; Start 02/20/19 at 06:30 Losartan Potassium (Cozaar) 50 mg BID PO Last administered on 02/21/19 09:03; Admin Dose 50 MG; Start 02/20/19 at 09:00 Magnesium Hydroxide (Milk Of Mag) 30 ml DAILY PO Last administered on 02/21/19 09:00; Admin Dose 30 ML; Start 02/20/19 at 09:00 Spironolactone (Aldactone) 25 mg DAILY@0600 PO Last administered on 02/20/19 09:00; Admin Dose 25 MG; Start 02/21/19 at 06:00 Insulin Aspart (Novolog Insulin Pen) 15 unit AC MEALS SC Last administered on 4/22/19at 12:15; Admin Dose 15 UNIT; Start 02/20/19 at 07:00 IV Flush (NS 3 ml) 3 ml PER PROTOCOL IV ; Start 02/20/19 at 06:30 Ondansetron HCl (Zofran Inj) 4 mg Q6H PRN IV NAUSEA/VOMITING; Start 02/20/19 at 06:30 Nitroglycerin (Nitroglycerin (Sl Tab) 0.4 Mg) 1 tab Q5M PRN SL .CHEST PAIN Last administered on 02/21/19at 07:51; Admin Dose 1 TAB; Start 02/20/19 at 06:30 Acetaminophen (Tylenol Tab) 650 mg Q6H PRN PO .PAIN 1-3 OR TEMP; Start 02/20/19 at 06:30 Morphine Sulfate (morphine) 2 mg Q4H PRN IV .PAIN 7-10 Last administered on 02/21/19at 10:27; Admin Dose 2 MG; Start 02/20/19 at 06:30 Docusate Sodium (Colace) 100 mg Q12H PRN PO .CONSTIPATION Last administered on 02/20/19at 21:21; Admin Dose 100 MG; Start 02/20/19 at 06:30 Bisacodyl (Dulcolax) 5 mg DAILY PRN PO .CONSTIPATION; Start 02/20/19 at 06:30 Miscellaneous Information 1 ea NOTE XX ; Start 02/20/19 at 06:00 Glucose (Glutose) 15 gm Q15M PRN PO DECREASED GLUCOSE; Start 02/20/19 at 06:00 Glucose (Glutose) 22.5 gm Q15M PRN PO DECREASED GLUCOSE; Start 02/20/19 at 06:00 Dextrose (D50w Syringe) 25 ml Q15M PRN IV DECREASED GLUCOSE; Start 02/20/19 at 06:00 Dextrose (D50w Syringe) 50 ml Q15M PRN IV DECREASED GLUCOSE; Start 02/20/19 at 06:00 Glucagon (Glucagen) 1 mg Q15M PRN IM DECREASED GLUCOSE; Start 02/20/19 at 06:00 Glucose (Glutose) 15 gm Q15M PRN BUCCAL DECREASED GLUCOSE; Start 02/20/19 at 06:00 Enoxaparin Sodium (Lovenox) 40 mg DAILY SC Last administered on 02/21/19at 09:10; Admin Dose 40 MG; Start 02/21/19 at 09:00 Acetaminophen/ Hydrocodone Bitart ([place] (7.5-325)) 1 tab Q4H PRN PO MODERATE PAIN LEVEL 4-6; Start 02/20/19 at 19:00 Amlodipine Besylate (Norvasc) 2.5 mg DAILY PO Last administered on 02/21/19at 12:10; Admin Dose 2.5 MG; Start 02/21/19 at 11:00 Assessment/Plan Hospital Course (Demo Recall) Chest pain has resolved now with negative troponins Coronary artery with history of multiple PCI and bypass surgery Ischemic cardiomyopathy Hypertension Severe peripheral vascular disease status post left BKA multiple rib auscultation lower extremities Diabetes Dyslipidemia Recommendations: Continue with the losartan and Coreg. Continue with high-dose statin. Zetia will be added as well Follow-up with vascular regarding follow-up on his wound care Diabetic management as per internal medicine Continue with Plavix RACHEL CALLAHAN MD [facility] RACHEL CALLAHAN MD Feb 21, 2019 15:02
[2019-02-21] MEDS ORDERED: EZETIMIBE 10 MG TAB PO SCH (21:00)
== END 2019-02-21 18:05 | disposition home or self-care (01) ==
LOC: E/R 04:12 → TEL 05:56
PROVIDERS: ADMIT Family Medicine; ATTEND Internal Medicine
DX: R07.89 Other chest pain (principal); I11.0 Hypertensive heart disease with heart failure; I50.23 Acute on chronic systolic (congestive) heart failure; I25.10 Atherosclerotic heart disease of native coronary artery without angina pectoris; I25.5 Ischemic cardiomyopathy; E11.51 Type 2 diabetes mellitus with diabetic peripheral angiopathy without gangrene; D64.9 Anemia, unspecified; Z72.0 Tobacco use; Z95.1 Presence of aortocoronary bypass graft; Z95.5 Presence of coronary angioplasty implant and graft; Z79.4 Long term (current) use of insulin; Z79.82 Long term (current) use of aspirin; E78.5 Hyperlipidemia, unspecified; Z89.512 Acquired absence of left leg below knee
CPT/HCPCS: 36415; 71045; 80048; 80053; 80061; 82550; 82553; 82962; 83036; 83735; 83880; 84100; 84439; 84443; 84484; 85025; 93005; 93306; J1650; J1815; J2270; Z7500; Z7502; Z7610; G0378

== ENCOUNTER 2019-03-23 12:20 | Inpatient (IN) | payer MEDICAID, OTHER ==
[~2019-03-23] VITALS: Ht 170.2 cm; Wt 80.0 kg
[~2019-03-23 12:20] MED LIST changes: -ALBU2.5V3 NEB; +AMLO2.5T78 PO; -CEPH-443 PO
[2019-03-23] MEDS ORDERED: NITROGLYCERIN 2% 1 GM OINT PKT TD STA (12:21)
[2019-03-23] MEDS ORDERED: FURO40TA4 PO (13:04)
[2019-03-23] MEDS ORDERED: INSU100I33 SC (13:04)
[2019-03-23] MEDS ORDERED: LORA0.5T PO (13:04)
[2019-03-23] MEDS ORDERED: LOSA100T15 PO (13:05)
[2019-03-23] MEDS ORDERED: CARV25TA79 PO (13:05)
[2019-03-23] MEDS ORDERED: ASPI-817 PO (13:05)
[2019-03-23] MEDS ORDERED: CLOP75TA19 PO (13:06)
[2019-03-23] MEDS ORDERED: METF100010 PO (13:06)
[2019-03-23] MEDS ORDERED: ATOR-2 PO (13:06)
[2019-03-23] MEDS ORDERED: INSU100C SQ (13:08)
[2019-03-23] MEDS ORDERED: SENN-120 PO (13:09)
[2019-03-23] MEDS ORDERED: ACETAMINOPHEN 325 MG TAB PO PRN ×2 (15:00→17:00)
[2019-03-23] MEDS ORDERED: ONDANSETRON 4 MG INJ IV PRN ×2 (15:00→17:00)
--- NOTE | 2019-03-23 16:54 | HP ---
Date/Time of Note Date/Time of Note DATE: 03/23/19 TIME: 16:49 Assessment/Plan VTE Prophylaxis Pharmacological prophylaxis: LMWH Lines/Catheters IV Catheter Type (from Nrsg): Saline Lock Assessment/Plan Hospital Course 1. Chest pain likely secondary to hypertension No evidence of ACS at this time, trend troponins Pain is now resolved Cardiology consultation with patient's ground wood supervisor Dr. Borges Continue cardiac meds 2. History of coronary disease status post CABG Continue cardiac meds 3. History of peripheral vascular disease status post left BKA over a year ago at outside hospital Patient is reporting pain at the stump of his left leg, patient has outpatient follow-up with his surgeon 4. CHF-compensated 5. Hypertension-now stable Continue meds 6. Diabetes Continue schedule insulin, sliding scale Prophylaxis: Lovenox Result Diagram: 03/23/19 1312 03/23/19 1312 Results 24hrs Laboratory Tests Test 03/23/19 13:12 White Blood Count 10.8 # Red Blood Count 4.00 L Hemoglobin 10.6 L Hematocrit 33.3 L Mean Corpuscular Volume 83.3 Mean Corpuscular Hemoglobin 26.5 L Mean Corpuscular Hemoglobin Concent 31.8 L Red Cell Distribution Width 15.4 H Platelet Count 244 Mean Platelet Volume 11.4 H Immature Granulocytes % 0.400 Neutrophils % 74.5 Lymphocytes % 16.7 Monocytes % 7.4 Eosinophils % 0.7 Basophils % 0.3 Nucleated Red Blood Cells % 0.0 Immature Granulocytes # 0.040 H Neutrophils # 8.0 H Lymphocytes # 1.8 Monocytes # 0.8 Eosinophils # 0.1 Basophils # 0.0 Nucleated Red Blood Cells # 0.0 Sodium Level 140 Potassium Level 3.5 Chloride Level 107 Carbon Dioxide Level 26 Anion Gap 7 Blood Urea Nitrogen 14 Creatinine 0.79 Est Glomerular Filtrat Rate mL/min > 60 Glucose Level 301 H Calcium Level 9.3 Troponin I < 0.012 HPI/ROS Admit Date/Time Admit Date/Time March 23, 2019 Hx of Present Illness Patient is a 64-year-old male with history of coronary disease status post CABG, hypertension, CHF, diabetes, peripheral artery disease status post left BKA, tobacco abuse. Patient was recently hospitalized for chest pain secondary to hypertension. Patient states that his chest pain began last night once again after his blood pressure became elevated. Patient currently denies chest pain in the ER patient has no evidence of ACS. Patient does report pain in the stump of his left leg. ROS Constitutional: no complaints, improved Eyes: no complaints ENT: no complaints Respiratory: no complaints Cardiovascular: no complaints Gastrointestinal: no complaints Genitourinary: no complaints Musculoskeletal: no complaints Skin: no complaints Neurologic: no complaints Endocrine: no complaints Lymphatic: no complaints Psychological: no complaints, nl mood/affect Immunologic: no complaints PMH/Family/Social Past Medical History As per HPI Medications Current Medications Nitroglycerin (Nitroglycerin (Sl Tab) 0.4 Mg) 1 tab Q5M UP TO 3 DOSES PRN SL .CHEST PAIN; Start 03/23/19 at 12:30 Ondansetron HCl (Zofran Inj) 4 mg ER BRIDGE PRN IV NAUSEA/VOMITING; Start 03/23/19 at 15:00; Stop 03/24/19 at 14:59 Acetaminophen (Tylenol Tab) 650 mg ER BRIDGE PRN PO .MILD PAIN 1-3 OR TEMP; Start 03/23/19 at 15:00; Stop 03/24/19 at 14:59 Coded Allergies: No Known Allergy (Unverified , 03/23/19) Past Surgical History Past Surgical Hx: angioplasty, coronary bypass surgery, other (Left BKA) Family History Significant Family History: no pertinent family hx Social History Alcohol Use: rarely Smoking Status: Former smoker Drug Use: none Exam/Review of Systems Vital Signs Vitals Vital Signs Date Temp Pulse Resp B/P (MAP) Pulse Ox O2 O2 Flow FiO2 Time Delivery Rate 03/23/19 70 18 131/74 100 Nasal 2.0 14:34 (93) Cannula 03/23/19 96.9 12:32 Exam Constitutional: alert, oriented Respiratory: clear to auscultation Cardiovascular: regular rate and rhythm Gastrointestinal: soft; No distended Musculoskeletal: No nl extremities to inspection [employer]ER [employer] March 23, 2019 16:54
[2019-03-23] MEDS ORDERED: NACL 0.9% 3 ML SYG IV SCH (17:00)
[2019-03-23] MEDS ORDERED: DOCUSATE SODIUM 100 MG CAP PO PRN (17:00)
[2019-03-23] MEDS ORDERED: GLUCOSE GEL 15 GRAM TUBE BUCCAL PRN ×2 (17:30→18:00)
[2019-03-23] MEDS ORDERED: DEXTROSE 50% 50 ML SYRINGE IV PRN ×4 (17:30→18:00)
[2019-03-23] MEDS ORDERED: GLUCOSE GEL 15 GRAM TUBE PO PRN ×4 (17:30→18:00)
[2019-03-23] MEDS ORDERED: GLUCAGON 1 MG INJ IM PRN ×2 (17:30→18:00)
[2019-03-23] MEDS: INSULIN ASPART [NOVOLOG] 3 ML PEN SC SCH ×3 (18:00→20:50)
[2019-03-23] MEDS: metFORMIN 500 MG TAB PO SCH (18:00)
--- NOTE | 2019-03-23 18:10 | ERD ---
ER Documentation Chief Complaint Chief Complaint BIB RA FOR EVAL OF CP. ASA 162MG GIVEN 2 NTG FISH PROCESSOR. HPI Patient is a 64-year-old male with coronary disease, hypertension, and diabetes who presents with chest pain. An [place] executive receptionist was used for the entire history and physical exam. The patient was brought in by ambulance. Patient was given aspirin and nitroglycerin. The patient describes a chest pain which is 2 out of 10 pressure-like. He has no shortness of breath. He has left-sided pain which comes and goes. Upon review of old medical records the patient has multiple visits to the ER with admissions for chest pain. ROS All systems reviewed and are negative except as per history of present illness. Medications Home Meds Active Scripts Amlodipine Besylate* (Amlodipine Besylate*) 2.5 Mg Tablet, 2.5 MG PO DAILY for 30 Days, TAB Prov:SPEEDY BASS MD 02/21/19 Reported Medications Sennosides* (Senna Lax*) 8.6 Mg Tablet, 1 TAB PO DAILY, TAB 03/23/19 Insulin Lispro (Humalog) 100 Unit/1 Ml Cartridge, 0 SQ BID, EA 5-10 UNITS-SLIDING SCALE 03/23/19 Clopidogrel Bisulfate* (Clopidogrel Bisulfate*) 75 Mg Tablet, 75 MG PO DAILY, #30 TAB 03/23/19 Atorvastatin* (Atorvastatin*) 80 Mg Tablet, 80 MG PO QHS, #30 TAB 03/23/19 Metformin Hcl* (Metformin Hcl*) 1,000 Mg Tablet, 1000 MG PO WITH BREAKFAST DINNE, #60 TAB 03/23/19 Losartan Potassium* (Losartan Potassium*) 100 Mg Tablet, 100 MG PO DAILY, TAB 03/23/19 Carvedilol* (Carvedilol*) 25 Mg Tablet, 25 MG PO BID, #60 TAB 03/23/19 Aspirin* (Aspirin* EC) 81 Mg Tablet.dr, 81 MG PO DAILY, TAB 03/23/19 Furosemide* (Furosemide*) 40 Mg Tablet, 40 MG PO DAILY, TAB 03/23/19 Lorazepam* (Lorazepam*) 0.5 Mg Tablet, 0.5 MG PO HS PRN for ANXIETY, TAB 03/23/19 Insulin Glargine,Hum.rec.anlog (Basaglar Kwikpen U-100) 100 Unit/1 Ml Insuln.pen, 45 UNIT SC BID, EA 03/23/19 Discontinued Reported Medications Metformin Hcl* (Metformin Hcl*) 1,000 Mg Tablet, 1000 MG PO WITH LUNCH DINNER, #30 TAB 09/23/18 Nitroglycerin* (Nitrostat*) 0.4 Mg Tab.subl, 0.4 MG SL Q5MIN PRN for CHEST PAIN, BOTTLE 06/19/18 Magnesium Hydroxide* (Naylor' MOM*) 30 Ml Susp, 30 ML PO DAILY, ML 06/19/18 Lorazepam* (Lorazepam*) 0.5 Mg Tablet, 0.5 MG PO Q6 PRN for ANXIETY, TAB 06/19/18 Furosemide* (Furosemide*) 40 Mg/5 Ml Solution, 40 MG PO DAILY, #150 ML 06/19/18 Famotidine* (Famotidine*) 20 Mg Tablet, 20 MG PO DAILY, #30 TAB 06/19/18 Atorvastatin* (Atorvastatin*) 80 Mg Tablet, 80 MG PO QHS, #30 TAB 06/19/18 Aspirin Ec (Aspir 81) 81 Mg Tablet.dr, 81 MG PO DAILY, #30 TAB 06/19/18 Insulin Glargine* (Lantus*) 100 Unit/Ml Soln, 45 UNIT SC QHS, #1 VIAL 06/19/18 Discontinued Scripts Insulin Lispro (Humalog Kwikpen U-100) 100 Unit/1 Ml Insuln.pen, 15 UNIT SQ AC MEALS, #1 SYR #100 32 GAUGE INSULIN PEN NEEDLES Prov:JOHNSTONMUNDOA V. MATERIALS DEVELOPMENT ENGINEER 11/12/18 Spironolactone* (Aldactone*) 25 Mg Tablet, 25 MG PO DAILY@0600, #30 TAB Prov:JOHNSTONMUNDOA V. MATERIALS DEVELOPMENT ENGINEER 11/12/18 Carvedilol* (Carvedilol*) 6.25 Mg Tablet, 25 MG PO BID for 30 Days, #60 TAB Prov:JOHNSTONRENATA V. MATERIALS DEVELOPMENT ENGINEER 11/12/18 Clopidogrel Bisulfate (Clopidogrel) 75 Mg Tablet, 75 MG PO DAILY for 30 Days, #30 TAB Prov:KAYCEE SWARTZ MD 06/22/18 Losartan Potassium* (Losartan Potassium*) 50 Mg Tablet, 50 MG PO BID for 30 Days, #60 TAB Prov:KAYCEE SWARTZ MD 06/21/18 Albuterol Sulfate* (Proair HFA*) 8.5 Gm Hfa.aer.ad, 2 PUFF INH Q4 for SHORTNESS OF BREATH, #1 INHALER Prov:TASHA WATERS MATERIALS DEVELOPMENT ENGINEER 11/15/17 Allergies Allergies: Coded Allergies: No Known Allergy (Unverified , 03/23/19) PMhx/Soc History of Surgery: Yes Anesthesia Reaction: No Hx Neurological Disorder: No Hx Respiratory Disorders: No Hx Cardiac Disorders: Yes (HTN, CHOLESTEROL, CABG, DM) Hx Psychiatric Problems: No Hx Miscellaneous Medical Probl: No Hx Alcohol Use: No Hx Substance Use: No Hx Tobacco Use: No Smoking Status: Former smoker FmHx Family History: No coronary disease Physical Exam Vitals Vital Signs Date Temp Pulse Resp B/P (MAP) Pulse Ox O2 O2 Flow FiO2 Time Delivery Rate 03/23/19 98.1 71 20 138/79 100 Nasal 2.0 17:21 (98) Cannula 03/23/19 70 18 131/74 100 Nasal 2.0 14:34 (93) Cannula 03/23/19 Nasal 2 12:54 Cannula 03/23/19 96.9 75 16 131/61 99 12:32 (84) Physical Exam Const: No acute distress Head: Atraumatic Eyes: Normal Conjunctiva ENT: Normal External Ears, Nose and Mouth. Neck: Full range of motion. No meningismus. Resp: Clear to auscultation bilaterally Cardio: Regular rate and rhythm, no murmurs Abd: Soft, non tender, non distended. Normal bowel sounds Skin: No petechiae or rashes Back: No midline or flank tenderness Ext: Previous left lower extremity amputation with fluid around the distal left leg Neur: Awake and alert Psych: Normal Mood and Affect Result Diagram: 03/23/19 1312 03/23/19 1312 Results 24 hrs Laboratory Tests Test 03/23/19 13:12 White Blood Count 10.8 10^3/ul Red Blood Count 4.00 10^6/ul Hemoglobin 10.6 g/dl Hematocrit 33.3 % Mean Corpuscular Volume 83.3 fl Mean Corpuscular Hemoglobin 26.5 pg Mean Corpuscular Hemoglobin Concent 31.8 g/dl Red Cell Distribution Width 15.4 % Platelet Count 244 10^3/UL Mean Platelet Volume 11.4 fl Immature Granulocytes % 0.400 % Neutrophils % 74.5 % Lymphocytes % 16.7 % Monocytes % 7.4 % Eosinophils % 0.7 % Basophils % 0.3 % Nucleated Red Blood Cells % 0.0 /100WBC Immature Granulocytes # 0.040 10^3/ul Neutrophils # 8.0 10^3/ul Lymphocytes # 1.8 10^3/ul Monocytes # 0.8 10^3/ul Eosinophils # 0.1 10^3/ul Basophils # 0.0 10^3/ul Nucleated Red Blood Cells # 0.0 10^3/ul Sodium Level 140 mmol/L Potassium Level 3.5 mmol/L Chloride Level 107 mmol/L Carbon Dioxide Level 26 mmol/L Anion Gap 7 Blood Urea Nitrogen 14 mg/dl Creatinine 0.79 mg/dl Est Glomerular Filtrat Rate mL/min > 60 mL/min Glucose Level 301 mg/dl Calcium Level 9.3 mg/dl Troponin I < 0.012 ng/ml Current Medications Medications Dose Sig/Masha Start Time Status Last (Trade) Ordered Route PRN Stop Time Admin Dose Reason Admin 1 inch ONCE STAT 03/23/19 DC 03/23/19 Nitroglycerin TD 12:21 13:04 03/23/19 12:22 (Nitroglyceri n 2% Oint) 1 tab Q5M UP TO 3 03/23/19 Nitroglycerin DOSES PRN 12:30 SL .CHEST (Nitroglyceri PAIN n (Sl Tab) 0.4 Mg) Ondansetron 4 mg ER BRIDGE 03/23/19 HCl (Zofran PRN IV 15:00 Inj) NAUSEA/VOMITI 03/24/19 14:59 NG 650 mg ER BRIDGE 03/23/19 Acetaminophen PRN PO 15:00 (Tylenol .MILD PAIN 03/24/19 14:59 Tab) 1-3 OR TEMP IV Flush 3 ml PER 03/23/19 (NS 3 ml) PROTOCOL IV 17:00 Ondansetron 4 mg Q6H PRN 03/23/19 HCl (Zofran IV 17:00 Inj) NAUSEA/VOMITI NG 650 mg Q6H PRN 03/23/19 Acetaminophen PO .PAIN 1-3 17:00 (Tylenol OR TEMP Tab) Morphine 2 mg Q4H PRN 03/23/19 Sulfate IV .SEVERE 17:00 (morphine) PAIN 7-10 Docusate 100 mg Q12H PRN 03/23/19 Sodium PO 17:00 (Colace) .CONSTIPATION Zolpidem 5 mg QHS PRN 03/23/19 Tartrate PO .INSOMNIA 17:00 (Ambien) Enoxaparin 40 mg DAILY SC 03/24/19 Sodium 09:00 (Lovenox) Amlodipine 2.5 mg DAILY PO 03/24/19 Besylate 09:00 (Norvasc) Aspirin 81 mg DAILY PO 03/24/19 (Halfprin) 09:00 80 mg QHS PO 03/23/19 Atorvastatin 21:00 Calcium (Lipitor) Carvedilol 25 mg BID PO 03/23/19 (Coreg) 21:00 Clopidogrel 75 mg DAILY PO 03/24/19 Bisulfate 09:00 (plaVIX) Furosemide 40 mg DAILY PO 03/24/19 (Lasix) 09:00 Insulin 45 unit BID SC 03/23/19 Glargine 21:00 (Lantus) Lorazepam 0.5 mg HS PRN PO 03/23/19 (Ativan) ANXIETY 17:00 Losartan 100 mg DAILY PO 03/24/19 Potassium 09:00 (Cozaar) Metformin 1,000 mg WITH 03/23/19 HCl BREAKFAST 18:00 (Glucophage) DINNE PO Senna 1 tab DAILY PO 03/24/19 (Senokot) 09:00 Discontinue ONCE ONCE 03/23/19 DC Miscellaneous current oral XX 17:00 sulfonylur... 03/23/19 17:22 Information (* Miscellaneous Pharmacy Order) Diagnostic 1 ea 02 XX 03/24/19 Test (Pha) 02:00 (Accu-Chek) Insulin 4 unit WITH MEALS 03/23/19 Aspart SC 18:00 (Novolog Insulin Pen) ONCE ONCE 03/23/19 DC Miscellaneous HYPOGLYCEMIA XX 17:00 PROTOCOL 03/23/19 17:22 Information w... (* Miscellaneous Pharmacy Order) Insulin NOVOLOG WITH MEALS 03/23/19 Aspart *MILD* BEDTIME SC 18:00 (Novolog ALGORITHM Insulin Pen) Discontinue ONCE ONCE 03/23/19 DC Miscellaneous all previ... XX 17:00 03/23/19 17:22 Information (* Miscellaneous Pharmacy Order) 1 ea NOTE XX 03/23/19 Miscellaneous 17:30 Information Glucose 15 gm Q15M PRN 03/23/19 (Glutose) PO DECREASED 17:30 GLUCOSE Glucose 22.5 gm Q15M PRN 03/23/19 (Glutose) PO DECREASED 17:30 GLUCOSE Dextrose 25 ml Q15M PRN 03/23/19 (D50w IV DECREASED 17:30 Syringe) GLUCOSE Dextrose 50 ml Q15M PRN 03/23/19 (D50w IV DECREASED 17:30 Syringe) GLUCOSE Glucagon 1 mg Q15M PRN 03/23/19 (Glucagen) IM DECREASED 17:30 GLUCOSE Glucose 15 gm Q15M PRN 03/23/19 (Glutose) BUCCAL 17:30 DECREASED GLUCOSE Procedures/MDM EKG read by me: Rate/Rhythm: Regular rate and rhythm at a normal rate Intervals: Normal Impression: No ST elevations Chest x-ray read by radiology. Patient is a 64-year-old male with multiple cardiac risk factors who presents with chest pain. He was given aspirin and nitroglycerin. The patient will be admitted to the care of the panel team to a telemetry observation bed. I doubt pneumonia, pneumothorax, pulmonary embolism, or aortic dissection. Departure Diagnosis: Primary Impression: Chest pain Chest pain type: unspecified Qualified Codes: R07.9 - Chest pain, unspecified Condition: KEVIN Lizama MD March 23, 2019 18:10
[2019-03-23] MEDS: LORAZEPAM 0.5 MG TAB PO PRN (19:14)
[2019-03-23] MEDS: morphine 2 MG INJ IV PRN (19:14)
[2019-03-23] MEDS: ATORVASTATIN 80 MG TAB PO SCH (20:32)
[2019-03-23] MEDS ORDERED: INSULIN GLARGINE [LANtus] 3 ML PEN SC SCH ×2 (21:00)
[2019-03-23] MEDS: INSULIN GLARGINE [LANTus] (100 UNITS/ML) SYG SC SCH (21:32)
[2019-03-23 23:53] VITALS: Ht 170.2 cm; Wt 80.0 kg
[2019-03-24] VITALS (11 sets, daily range): BP systolic 109–150; BP diastolic 58–78; PULSE 68–78; RESP 19–20
[2019-03-24] MEDS: morphine 2 MG INJ IV PRN ×3 (00:29→15:25)
[2019-03-24] MEDS: ACCU-CHEK XX SCH (01:55)
[2019-03-24] MEDS: INSULIN ASPART [NOVOLOG] 3 ML PEN SC SCH ×9 (07:55→21:00)
[2019-03-24] MEDS: metFORMIN 500 MG TAB PO SCH ×2 (07:55→17:01)
--- NOTE | 2019-03-24 07:57 | CONS ---
Assessment/Plan Assessment/Plan Hospital Course (Demo Recall) Chest pain ; probably due to his chronic angina secondary to chronic total occlusions. Has resolved now with negative troponins Coronary artery with history of multiple PCI and bypass surgery Ischemic cardiomyopathy Hypertension Severe peripheral vascular disease status post left BKA multiple revascularization of lower extremities Diabetes Dyslipidemia Recommendations: Continue with the losartan and Coreg. Continue with high-dose statin. Zetia will be added as well for better management of his lipids Stump management and wound care as per internal medicine and possibly podiatry and vascular surgery Diabetic management as per internal medicine Continue with Plavix Nitrates will be added. RACHEL CALLAHAN MD [facility] Consultation Date/Type/Reason Admit Date/Time March 23, 2019 Date of Consultation: March 24, 2019 Type of Consult Cardiology Reason for Consultation CHEST PAIN Requesting Provider: NADER PLAZA Date/Time of Note DATE: 03/24/19 TIME: 07:50 Hx of Present Illness Interventional cardiology consultation Chief complaint: Hypertension, bleeding and pain at the sign of his left foot stump, chest pain Reason for consult: Chest pain History of present illness: Thank you for his referral. History was from the patient and , discussion with the staff and physicians. From review of the old chart. This is a pleasant 64-year-old [place] gentleman with history of coronary artery disease status post multiple PCI, status post coronary artery bypass graft September 2017, severe peripheral vascular disease status post multiple recent percutaneous revascularization of his right lower extremity , status post left BKA amputation at [facility] who presented to emergency room with above complaints History that he had mild anterior chest pressure which she has had on and off. He lasted a short time and has resolved. He is more concerned about his left foot stump which has been bleeding and painful. He also said he had high blood pressure when his blood pressure goes too high sometimes he gets chest pain. Patient has been rule out for myocardial infarction and currently completely chest pain-free. Allergies no known allergies Medication was reviewed as per medical reconciliation which were personally reviewed. social History: patient has quit smoking. He is an ex-smoker Family history: + Family member with coronary artery disease. Past medical history: Coronary artery disease status post multiple PCI status post three-vessel bypass surgery in September 2017. Patient underwent coronary angiography by myself in June 2018 for chest pain and mildly abnormal stress test which shows: 1. Left main coronary artery: Is normal. 2. Left anterior descending artery: Its a moderate size vessel and goes around the apex. It has 90 % stenosis proximally, . There is competitive flow noted to the mid to distal LAD from the [place] to LAD is widely patent 3. Left circumflex artery: Is nondominant. It has 100 % stenosis at proximal left circumflex artery. There is left to left collaterals. Consistent with chronic total occlusion. OM appears to be very small. 4. Right coronary artery: Is a dominant vessel. It has 100 % stenosis at proximal to mid level SVG to PDA is widely patent with about 20% proximal stenosis. 5. Ramus intermediate is a large vessel. Appear to be 100% occluded mid level. Saphenous vein graft to the ramus could not be directly visualized by nonselective angiography appeared to be patent Diabetes Hypertension Dyslipidemia Peripheral vascular disease: Status post right femoral posterior tibial bypass grafting, right femoral endarterectomy (March 2018), LLE occlusive arterial disease s/p left femoral to posterior tibial bypass grafting and left femoral endarterectomy and left tibial endarterectomy on 04/15/18, status post left lower extremity BKA Congestive heart failure/ cardiomyopathy Review of system: As above only denies all others to me Past Medical History Home Meds Active Scripts Amlodipine Besylate* (Amlodipine Besylate*) 2.5 Mg Tablet, 2.5 MG PO DAILY for 30 Days, TAB Prov:SPEEDY BASS MD 02/21/19 Reported Medications Sennosides* (Senna Lax*) 8.6 Mg Tablet, 1 TAB PO DAILY, TAB 03/23/19 Insulin Lispro (Humalog) 100 Unit/1 Ml Cartridge, 0 SQ BID, EA 5-10 UNITS-SLIDING SCALE 03/23/19 Clopidogrel Bisulfate* (Clopidogrel Bisulfate*) 75 Mg Tablet, 75 MG PO DAILY, #30 TAB 03/23/19 Atorvastatin* (Atorvastatin*) 80 Mg Tablet, 80 MG PO QHS, #30 TAB 03/23/19 Metformin Hcl* (Metformin Hcl*) 1,000 Mg Tablet, 1000 MG PO WITH BREAKFAST DINNE, #60 TAB 03/23/19 Losartan Potassium* (Losartan Potassium*) 100 Mg Tablet, 100 MG PO DAILY, TAB 03/23/19 Carvedilol* (Carvedilol*) 25 Mg Tablet, 25 MG PO BID, #60 TAB 03/23/19 Aspirin* (Aspirin* EC) 81 Mg Tablet.dr, 81 MG PO DAILY, TAB 03/23/19 Furosemide* (Furosemide*) 40 Mg Tablet, 40 MG PO DAILY, TAB 03/23/19 Lorazepam* (Lorazepam*) 0.5 Mg Tablet, 0.5 MG PO HS PRN for ANXIETY, TAB 03/23/19 Insulin Glargine,Hum.rec.anlog (Basaglar Kwikpen U-100) 100 Unit/1 Ml Insuln.pen, 45 UNIT SC BID, EA 03/23/19 Discontinued Reported Medications Metformin Hcl* (Metformin Hcl*) 1,000 Mg Tablet, 1000 MG PO WITH LUNCH DINNER, #30 TAB 09/23/18 Nitroglycerin* (Nitrostat*) 0.4 Mg Tab.subl, 0.4 MG SL Q5MIN PRN for CHEST PAIN, BOTTLE 06/19/18 Magnesium Hydroxide* (Naylor' MOM*) 30 Ml Susp, 30 ML PO DAILY, ML 06/19/18 Lorazepam* (Lorazepam*) 0.5 Mg Tablet, 0.5 MG PO Q6 PRN for ANXIETY, TAB 06/19/18 Furosemide* (Furosemide*) 40 Mg/5 Ml Solution, 40 MG PO DAILY, #150 ML 06/19/18 Famotidine* (Famotidine*) 20 Mg Tablet, 20 MG PO DAILY, #30 TAB 06/19/18 Atorvastatin* (Atorvastatin*) 80 Mg Tablet, 80 MG PO QHS, #30 TAB 06/19/18 Aspirin Ec (Aspir 81) 81 Mg Tablet.dr, 81 MG PO DAILY, #30 TAB 06/19/18 Insulin Glargine* (Lantus*) 100 Unit/Ml Soln, 45 UNIT SC QHS, #1 VIAL 06/19/18 Discontinued Scripts Insulin Lispro (Humalog Kwikpen U-100) 100 Unit/1 Ml Insuln.pen, 15 UNIT SQ AC MEALS, #1 SYR #100 32 GAUGE INSULIN PEN NEEDLES Prov:JOHNSTON,RENATA V. COMPUTATIONAL MATHEMATICIAN 11/12/18 Spironolactone* (Aldactone*) 25 Mg Tablet, 25 MG PO DAILY@0600, #30 TAB Prov:JOHNSTON,RENATA V. COMPUTATIONAL MATHEMATICIAN 11/12/18 Carvedilol* (Carvedilol*) 6.25 Mg Tablet, 25 MG PO BID for 30 Days, #60 TAB Prov:RENATA JOHNSTON V. COMPUTATIONAL MATHEMATICIAN 11/12/18 Clopidogrel Bisulfate (Clopidogrel) 75 Mg Tablet, 75 MG PO DAILY for 30 Days, #30 TAB Prov:KAYCEE SWARTZ MD 06/22/18 Losartan Potassium* (Losartan Potassium*) 50 Mg Tablet, 50 MG PO BID for 30 Days, #60 TAB Prov:KAYCEE SWARTZ MD 06/21/18 Albuterol Sulfate* (Proair HFA*) 8.5 Gm Hfa.aer.ad, 2 PUFF INH Q4 for SHORTNESS OF BREATH, #1 INHALER Prov:TASHA WATERS COMPUTATIONAL MATHEMATICIAN 11/15/17 Medications Current Medications Nitroglycerin (Nitroglycerin (Sl Tab) 0.4 Mg) 1 tab Q5M UP TO 3 DOSES PRN SL .CHEST PAIN; Start 03/23/19 at 12:30 Ondansetron HCl (Zofran Inj) 4 mg ER BRIDGE PRN IV NAUSEA/VOMITING; Start 03/23/19 at 15:00; Stop 03/24/19 at 14:59 Acetaminophen (Tylenol Tab) 650 mg ER BRIDGE PRN PO .MILD PAIN 1-3 OR TEMP; Start 03/23/19 at 15:00; Stop 03/24/19 at 14:59 IV Flush (NS 3 ml) 3 ml PER PROTOCOL IV ; Start 03/23/19 at 17:00 Ondansetron HCl (Zofran Inj) 4 mg Q6H PRN IV NAUSEA/VOMITING; Start 03/23/19 at 17:00 Acetaminophen (Tylenol Tab) 650 mg Q6H PRN PO .PAIN 1-3 OR TEMP; Start 03/23/19 at 17:00 Morphine Sulfate (morphine) 2 mg Q4H PRN IV .SEVERE PAIN 7-10 Last administered on 03/24/19at 00:29; Admin Dose 2 MG; Start 03/23/19 at 17:00 Docusate Sodium (Colace) 100 mg Q12H PRN PO .CONSTIPATION; Start 03/23/19 at 17:00 Zolpidem Tartrate (Ambien) 5 mg QHS PRN PO .INSOMNIA; Start 03/23/19 at 17:00 Enoxaparin Sodium (Lovenox) 40 mg DAILY SC ; Start 03/24/19 at 09:00 Amlodipine Besylate (Norvasc) 2.5 mg DAILY PO ; Start 03/24/19 at 09:00 Aspirin (Halfprin) 81 mg DAILY PO ; Start 03/24/19 at 09:00 Atorvastatin Calcium (Lipitor) 80 mg QHS PO Last administered on 03/23/19at 20:32; Admin Dose 80 MG; Start 03/23/19 at 21:00 Carvedilol (Coreg) 25 mg BID PO Last administered on 03/23/19at 20:56; Admin Dose 25 MG; Start 03/23/19 at 21:00 Clopidogrel Bisulfate (plaVIX) 75 mg DAILY PO ; Start 03/24/19 at 09:00 Furosemide (Lasix) 40 mg DAILY PO ; Start 03/24/19 at 09:00 Lorazepam (Ativan) 0.5 mg HS PRN PO ANXIETY Last administered on 03/23/19at 19:14; Admin Dose 0.5 MG; Start 03/23/19 at 17:00 Losartan Potassium (Cozaar) 100 mg DAILY PO ; Start 03/24/19 at 09:00 Metformin HCl (Glucophage) 1,000 mg WITH BREAKFAST DINNE PO ; Start 03/23/19 at 18:00 Senna (Senokot) 1 tab DAILY PO ; Start 03/24/19 at 09:00 Diagnostic Test (Pha) (Accu-Chek) 1 ea 02 XX Last administered on 03/24/19at 01:55; Admin Dose 1 EA; Start 03/24/19 at 02:00 Insulin Aspart (Novolog Insulin Pen) 4 unit WITH MEALS SC ; Start 03/23/19 at 18:00 Insulin Aspart (Novolog Insulin Pen) NOVOLOG *MILD* ALGORITHM WITH MEALS BEDTIME SC Last administered on 03/23/19at 20:50; Admin Dose 3 UNIT; Start 03/23/19 at 18:00 Miscellaneous Information 1 ea NOTE XX ; Start 03/23/19 at 17:30 Glucose (Glutose) 15 gm Q15M PRN PO DECREASED GLUCOSE; Start 03/23/19 at 17:30 Glucose (Glutose) 22.5 gm Q15M PRN PO DECREASED GLUCOSE; Start 03/23/19 at 17:30 Dextrose (D50w Syringe) 25 ml Q15M PRN IV DECREASED GLUCOSE; Start 03/23/19 at 17:30 Dextrose (D50w Syringe) 50 ml Q15M PRN IV DECREASED GLUCOSE; Start 03/23/19 at 17:30 Glucagon (Glucagen) 1 mg Q15M PRN IM DECREASED GLUCOSE; Start 03/23/19 at 17:30 Glucose (Glutose) 15 gm Q15M PRN BUCCAL DECREASED GLUCOSE; Start 03/23/19 at 17:30 Miscellaneous Information 1 ea NOTE XX ; Start 03/23/19 at 18:00 Glucose (Glutose) 15 gm Q15M PRN PO DECREASED GLUCOSE; Start 03/23/19 at 18:00 Glucose (Glutose) 22.5 gm Q15M PRN PO DECREASED GLUCOSE; Start 03/23/19 at 18:00 Dextrose (D50w Syringe) 25 ml Q15M PRN IV DECREASED GLUCOSE; Start 03/23/19 at 18:00 Dextrose (D50w Syringe) 50 ml Q15M PRN IV DECREASED GLUCOSE; Start 03/23/19 at 18:00 Glucagon (Glucagen) 1 mg Q15M PRN IM DECREASED GLUCOSE; Start 03/23/19 at 18:00 Glucose (Glutose) 15 gm Q15M PRN BUCCAL DECREASED GLUCOSE; Start 03/23/19 at 18:00 Insulin Glargine (Lantus) 45 units BID SC Last administered on 03/23/19at 21:32; Admin Dose 45 UNITS; Start 03/23/19 at 21:00 Allergies: Coded Allergies: No Known Allergy (Unverified , 03/23/19) Past Surgical History Past Surgical Hx: angioplasty, coronary bypass surgery, other (Left BKA) Social History Alcohol Use: rarely Smoking Status: Former smoker Drug Use: none Exam/Review of Systems Vital Signs Vitals Vital Signs Date Temp Pulse Resp B/P (MAP) Pulse Ox O2 O2 Flow FiO2 Time Delivery Rate 03/24/19 98.9 76 19 150/70 95 07:30 (96) 03/23/19 Nasal 2.0 22:57 Cannula Intake and Output 03/23/19 03/23/19 03/24/19 1515:00 23:00 07:00 IntakeIntake Total 600 ml OutputOutput Total 520 ml BalanceBalance 80 ml Exam Exam General: no acute distress HEENT: NC/AT. pupils are equal. round. NECK: NO JVD. no stridor. CV: RRR. systolic murmur; no gallop or rubs. PULM: no wheezing or rhonchi. GI: SOFT, NT, ND, no rebound or guarding Extremity: Left lower extremity status post BKA with evidence of active bleeding from his stump site upon removal of dressing. neuro: awake and alert, OX3. Psych: calm and pleasant rectal: deferred : normal EKG was personally reviewed showed normal sinus rhythm. Inferior infarct age undetermined. Anterior infarct age undetermined. Nonspecific ST-T wave abnormalities Chest x-ray shows: No acute cardiopulmonary disease Labs Result Diagram: 03/24/19 0548 03/24/19 0548 Results 24hrs Laboratory Tests Test 03/23/19 13:12 03/23/19 18:06 03/23/19 19:05 03/23/19 20:41 White Blood Count 10.8 # Red Blood Count 4.00 L Hemoglobin 10.6 L Hematocrit 33.3 L Mean Corpuscular 83.3 Volume Mean Corpuscular 26.5 L Hemoglobin Mean Corpuscular 31.8 L Hemoglobin Concent Red Cell 15.4 H Distribution Width Platelet Count 244 Mean Platelet Volume 11.4 H Immature 0.400 Granulocytes % Neutrophils % 74.5 Lymphocytes % 16.7 Monocytes % 7.4 Eosinophils % 0.7 Basophils % 0.3 Nucleated Red Blood 0.0 Cells % Immature 0.040 H Granulocytes # Neutrophils # 8.0 H Lymphocytes # 1.8 Monocytes # 0.8 Eosinophils # 0.1 Basophils # 0.0 Nucleated Red Blood 0.0 Cells # Sodium Level 140 Potassium Level 3.5 Chloride Level 107 Carbon Dioxide Level 26 Anion Gap 7 Blood Urea Nitrogen 14 Creatinine 0.79 Est Glomerular > 60 Filtrat Rate mL/min Glucose Level 301 H Calcium Level 9.3 Troponin I < 0.012 < 0.012 Bedside Glucose 103 221 H Creatine Kinase 99 Creatine Kinase 1.8 Index Creatinine Kinase MB 1.80 (Mass) Test 03/23/19 21:19 03/23/19 21:49 03/24/19 00:35 03/24/19 01:49 Bedside Glucose 235 H 237 H 155 Creatine Kinase 91 Creatine Kinase 1.8 Index Creatinine Kinase MB 1.67 (Mass) Troponin I < 0.012 Test 03/24/19 05:01 03/24/19 05:48 Bedside Glucose 140 White Blood Count 11.5 H Red Blood Count 4.14 L Hemoglobin 10.7 L Hematocrit 34.4 L Mean Corpuscular 83.1 Volume Mean Corpuscular 25.8 L Hemoglobin Mean Corpuscular 31.1 L Hemoglobin Concent Red Cell 15.7 H Distribution Width Platelet Count 256 Mean Platelet Volume 11.6 H Immature 0.300 Granulocytes % Neutrophils % 72.0 Lymphocytes % 19.0 Monocytes % 7.6 Eosinophils % 0.9 Basophils % 0.2 Nucleated Red Blood 0.0 Cells % Immature 0.040 H Granulocytes # Neutrophils # 8.3 H Lymphocytes # 2.2 Monocytes # 0.9 Eosinophils # 0.1 Basophils # 0.0 Nucleated Red Blood 0.0 Cells # Sodium Level 140 Potassium Level 3.2 L Chloride Level 105 Carbon Dioxide Level 28 Anion Gap 7 Blood Urea Nitrogen 17 Creatinine 0.81 Est Glomerular > 60 Filtrat Rate mL/min Glucose Level 125 # Hemoglobin A1c 8.5 H Calcium Level 9.1 Phosphorus Level 3.9 Magnesium Level 1.8 Medications Medications Current Medications Nitroglycerin (Nitroglycerin (Sl Tab) 0.4 Mg) 1 tab Q5M UP TO 3 DOSES PRN SL .CHEST PAIN; Start 03/23/19 at 12:30 Ondansetron HCl (Zofran Inj) 4 mg ER BRIDGE PRN IV NAUSEA/VOMITING; Start 03/23/19 at 15:00; Stop 03/24/19 at 14:59 Acetaminophen (Tylenol Tab) 650 mg ER BRIDGE PRN PO .MILD PAIN 1-3 OR TEMP; Start 03/23/19 at 15:00; Stop 03/24/19 at 14:59 IV Flush (NS 3 ml) 3 ml PER PROTOCOL IV ; Start 03/23/19 at 17:00 Ondansetron HCl (Zofran Inj) 4 mg Q6H PRN IV NAUSEA/VOMITING; Start 03/23/19 at 17:00 Acetaminophen (Tylenol Tab) 650 mg Q6H PRN PO .PAIN 1-3 OR TEMP; Start 03/23/19 at 17:00 Morphine Sulfate (morphine) 2 mg Q4H PRN IV .SEVERE PAIN 7-10 Last administered on 03/24/19at 00:29; Admin Dose 2 MG; Start 03/23/19 at 17:00 Docusate Sodium (Colace) 100 mg Q12H PRN PO .CONSTIPATION; Start 03/23/19 at 17:00 Zolpidem Tartrate (Ambien) 5 mg QHS PRN PO .INSOMNIA; Start 03/23/19 at 17:00 Enoxaparin Sodium (Lovenox) 40 mg DAILY SC ; Start 03/24/19 at 09:00 Amlodipine Besylate (Norvasc) 2.5 mg DAILY PO ; Start 03/24/19 at 09:00 Aspirin (Halfprin) 81 mg DAILY PO ; Start 03/24/19 at 09:00 Atorvastatin Calcium (Lipitor) 80 mg QHS PO Last administered on 03/23/19at 20:32; Admin Dose 80 MG; Start 03/23/19 at 21:00 Carvedilol (Coreg) 25 mg BID PO Last administered on 03/23/19at 20:56; Admin Dose 25 MG; Start 03/23/19 at 21:00 Clopidogrel Bisulfate (plaVIX) 75 mg DAILY PO ; Start 03/24/19 at 09:00 Furosemide (Lasix) 40 mg DAILY PO ; Start 03/24/19 at 09:00 Lorazepam (Ativan) 0.5 mg HS PRN PO ANXIETY Last administered on 03/23/19at 19:14; Admin Dose 0.5 MG; Start 03/23/19 at 17:00 Losartan Potassium (Cozaar) 100 mg DAILY PO ; Start 03/24/19 at 09:00 Metformin HCl (Glucophage) 1,000 mg WITH BREAKFAST DINNE PO ; Start 03/23/19 at 18:00 Senna (Senokot) 1 tab DAILY PO ; Start 03/24/19 at 09:00 Diagnostic Test (Pha) (Accu-Chek) 1 ea 02 XX Last administered on 03/24/19at 01:55; Admin Dose 1 EA; Start 03/24/19 at 02:00 Insulin Aspart (Novolog Insulin Pen) 4 unit WITH MEALS SC ; Start 03/23/19 at 18:00 Insulin Aspart (Novolog Insulin Pen) NOVOLOG *MILD* ALGORITHM WITH MEALS BEDTIME SC Last administered on 03/23/19at 20:50; Admin Dose 3 UNIT; Start 03/23/19 at 18:00 Miscellaneous Information 1 ea NOTE XX ; Start 03/23/19 at 17:30 Glucose (Glutose) 15 gm Q15M PRN PO DECREASED GLUCOSE; Start 03/23/19 at 17:30 Glucose (Glutose) 22.5 gm Q15M PRN PO DECREASED GLUCOSE; Start 03/23/19 at 17:30 Dextrose (D50w Syringe) 25 ml Q15M PRN IV DECREASED GLUCOSE; Start 03/23/19 at 17:30 Dextrose (D50w Syringe) 50 ml Q15M PRN IV DECREASED GLUCOSE; Start 03/23/19 at 17:30 Glucagon (Glucagen) 1 mg Q15M PRN IM DECREASED GLUCOSE; Start 03/23/19 at 17:30 Glucose (Glutose) 15 gm Q15M PRN BUCCAL DECREASED GLUCOSE; Start 03/23/19 at 17:30 Miscellaneous Information 1 ea NOTE XX ; Start 03/23/19 at 18:00 Glucose (Glutose) 15 gm Q15M PRN PO DECREASED GLUCOSE; Start 03/23/19 at 18:00 Glucose (Glutose) 22.5 gm Q15M PRN PO DECREASED GLUCOSE; Start 03/23/19 at 18:00 Dextrose (D50w Syringe) 25 ml Q15M PRN IV DECREASED GLUCOSE; Start 03/23/19 at 18:00 Dextrose (D50w Syringe) 50 ml Q15M PRN IV DECREASED GLUCOSE; Start 03/23/19 at 18:00 Glucagon (Glucagen) 1 mg Q15M PRN IM DECREASED GLUCOSE; Start 03/23/19 at 18:00 Glucose (Glutose) 15 gm Q15M PRN BUCCAL DECREASED GLUCOSE; Start 03/23/19 at 18:00 Insulin Glargine (Lantus) 45 units BID SC Last administered on 03/23/19at 21:32; Admin Dose 45 UNITS; Start 03/23/19 at 21:00 RACHEL CALLAHAN MD March 24, 2019 07:57
[2019-03-24] MEDS: FUROSEMIDE 40 MG TAB PO SCH (08:09)
[2019-03-24] MEDS: SENNA TAB PO SCH (08:09)
[2019-03-24] MEDS: AMLODIPINE 2.5 MG TAB PO SCH (08:09)
[2019-03-24] MEDS: CLOPIDOGREL 75 MG TAB PO SCH (08:10)
[2019-03-24] MEDS: ASPIRIN (EC) 81 MG TAB PO SCH (08:10)
[2019-03-24] MEDS: LOSARTAN 50 MG TAB PO SCH (08:10)
[2019-03-24] MEDS: ISOSORBIDE MONONITRATE(SR)30 MG TAB PO SCH (08:11)
[2019-03-24] MEDS: ENOXAPARIN 40 MG/0.4 ML SYG SC SCH (08:31)
[2019-03-24] MEDS: INSULIN GLARGINE [LANTus] (100 UNITS/ML) SYG SC SCH ×3 (08:31→20:57)
[2019-03-24] MEDS ORDERED: POTASSIUM CHLORIDE (SR) 20 MEQ TAB PO STA (12:13)
[2019-03-24] MEDS ORDERED: VANCOMYCIN IV PER PHARMACY XX SCH (14:30)
[2019-03-24] MEDS ORDERED: VANCOMYCIN HCL 1.5 GM in SOD CHLORIDE 0.9% 250 ML IVPB SCH (16:30)
--- NOTE | 2019-03-24 19:07 | PN ---
Date/Time of Note Date/Time of Note DATE: 03/24/19 TIME: 19:04 Assessment/Plan VTE Prophylaxis Risk score (from Nsg)>0 risk: 4 Pharmacological prophylaxis: LMWH Lines/Catheters IV Catheter Type (from Nrsg): Peripheral IV Assessment/Plan Hospital Course 1. Chest pain likely secondary to hypertension No evidence of ACS at this time, clear for DC per cardiology Pain is now resolved Cardiology consultation with patient's correctional casework specialist Dr. Borges appreciated Continue cardiac meds 2. History of coronary disease status post CABG Continue cardiac meds 3. History of peripheral vascular disease status post left BKA over a year ago at outside hospital Patient is reporting pain at the left BKA stump site with ulceration, bleeding ulcer was noted Follow-up on wound care recommendations Continue IV antibiotics Follow-up on wound culture Podiatry and general surgery are not comfortable addressing this current issue, consider vascular surgery consultation Of note patient had left BKA over a year ago at [place] 4. CHF-compensated 5. Hypertension-now stable Continue meds 6. Diabetes Continue schedule insulin, sliding scale Prophylaxis: Lovenox Result Diagram: 03/24/19 0548 03/24/19 0548 Results 24hrs Laboratory Tests Test 03/23/19 19:05 03/23/19 20:41 03/23/19 21:19 03/23/19 21:49 Creatine Kinase 99 Creatine Kinase 1.8 Index Creatinine Kinase MB 1.80 (Mass) Troponin I < 0.012 Bedside Glucose 221 H 235 H 237 H Test 03/24/19 00:35 03/24/19 01:49 03/24/19 05:01 03/24/19 05:48 Creatine Kinase 91 Creatine Kinase 1.8 Index Creatinine Kinase MB 1.67 (Mass) Troponin I < 0.012 Bedside Glucose 155 140 White Blood Count 11.5 H Red Blood Count 4.14 L Hemoglobin 10.7 L Hematocrit 34.4 L Mean Corpuscular 83.1 Volume Mean Corpuscular 25.8 L Hemoglobin Mean Corpuscular 31.1 L Hemoglobin Concent Red Cell 15.7 H Distribution Width Platelet Count 256 Mean Platelet Volume 11.6 H Immature 0.300 Granulocytes % Neutrophils % 72.0 Lymphocytes % 19.0 Monocytes % 7.6 Eosinophils % 0.9 Basophils % 0.2 Nucleated Red Blood 0.0 Cells % Immature 0.040 H Granulocytes # Neutrophils # 8.3 H Lymphocytes # 2.2 Monocytes # 0.9 Eosinophils # 0.1 Basophils # 0.0 Nucleated Red Blood 0.0 Cells # Sodium Level 140 Potassium Level 3.2 L Chloride Level 105 Carbon Dioxide Level 28 Anion Gap 7 Blood Urea Nitrogen 17 Creatinine 0.81 Est Glomerular > 60 Filtrat Rate mL/min Glucose Level 125 # Hemoglobin A1c 8.5 H Calcium Level 9.1 Phosphorus Level 3.9 Magnesium Level 1.8 Test 03/24/19 08:07 03/24/19 12:03 03/24/19 12:42 03/24/19 13:38 Bedside Glucose 151 161 250 H 303 H Test 03/24/19 16:39 Bedside Glucose 221 H Subjective 24 Hr Interval Summary Skin: skin lesions Exam/Review of Systems Exam Vitals Vital Signs Date Temp Pulse Resp B/P (MAP) Pulse Ox O2 O2 Flow FiO2 Time Delivery Rate 03/24/19 68 16:05 03/24/19 98.7 19 119/58 98 14:13 (78) 03/24/19 Nasal 2.0 08:00 Cannula Intake and Output 03/23/19 03/23/19 03/24/19 1515:00 23:00 07:00 IntakeIntake Total 600 ml OutputOutput Total 520 ml BalanceBalance 80 ml Constitutional: alert, oriented Respiratory: clear to auscultation Cardiovascular: regular rate and rhythm Gastrointestinal: soft; No distended Musculoskeletal: No nl extremities to inspection Results Results 24hrs Laboratory Tests Test 03/23/19 19:05 03/23/19 20:41 03/23/19 21:19 03/23/19 21:49 Creatine Kinase 99 Creatine Kinase 1.8 Index Creatinine Kinase MB 1.80 (Mass) Troponin I < 0.012 Bedside Glucose 221 H 235 H 237 H Test 03/24/19 00:35 03/24/19 01:49 03/24/19 05:01 03/24/19 05:48 Creatine Kinase 91 Creatine Kinase 1.8 Index Creatinine Kinase MB 1.67 (Mass) Troponin I < 0.012 Bedside Glucose 155 140 White Blood Count 11.5 H Red Blood Count 4.14 L Hemoglobin 10.7 L Hematocrit 34.4 L Mean Corpuscular 83.1 Volume Mean Corpuscular 25.8 L Hemoglobin Mean Corpuscular 31.1 L Hemoglobin Concent Red Cell 15.7 H Distribution Width Platelet Count 256 Mean Platelet Volume 11.6 H Immature 0.300 Granulocytes % Neutrophils % 72.0 Lymphocytes % 19.0 Monocytes % 7.6 Eosinophils % 0.9 Basophils % 0.2 Nucleated Red Blood 0.0 Cells % Immature 0.040 H Granulocytes # Neutrophils # 8.3 H Lymphocytes # 2.2 Monocytes # 0.9 Eosinophils # 0.1 Basophils # 0.0 Nucleated Red Blood 0.0 Cells # Sodium Level 140 Potassium Level 3.2 L Chloride Level 105 Carbon Dioxide Level 28 Anion Gap 7 Blood Urea Nitrogen 17 Creatinine 0.81 Est Glomerular > 60 Filtrat Rate mL/min Glucose Level 125 # Hemoglobin A1c 8.5 H Calcium Level 9.1 Phosphorus Level 3.9 Magnesium Level 1.8 Test 03/24/19 08:07 03/24/19 12:03 03/24/19 12:42 03/24/19 13:38 Bedside Glucose 151 161 250 H 303 H Test 03/24/19 16:39 Bedside Glucose 221 H Medications Medication Current Medications Nitroglycerin (Nitroglycerin (Sl Tab) 0.4 Mg) 1 tab Q5M UP TO 3 DOSES PRN SL .CHEST PAIN; Start 03/23/19 at 12:30 IV Flush (NS 3 ml) 3 ml PER PROTOCOL IV ; Start 03/23/19 at 17:00 Ondansetron HCl (Zofran Inj) 4 mg Q6H PRN IV NAUSEA/VOMITING; Start 03/23/19 at 17:00 Acetaminophen (Tylenol Tab) 650 mg Q6H PRN PO .PAIN 1-3 OR TEMP; Start 03/23/19 at 17:00 Morphine Sulfate (morphine) 2 mg Q4H PRN IV .SEVERE PAIN 7-10 Last administered on 03/24/19at 15:25; Admin Dose 2 MG; Start 03/23/19 at 17:00 Docusate Sodium (Colace) 100 mg Q12H PRN PO .CONSTIPATION; Start 03/23/19 at 17:00 Zolpidem Tartrate (Ambien) 5 mg QHS PRN PO .INSOMNIA; Start 03/23/19 at 17:00 Enoxaparin Sodium (Lovenox) 40 mg DAILY SC Last administered on 03/24/19at 08:31; Admin Dose 40 MG; Start 03/24/19 at 09:00 Amlodipine Besylate (Norvasc) 2.5 mg DAILY PO Last administered on 03/24/19 08:09; Admin Dose 2.5 MG; Start 03/24/19 at 09:00 Aspirin (Halfprin) 81 mg DAILY PO Last administered on 03/24/19 08:10; Admin Dose 81 MG; Start 03/24/19 at 09:00 Atorvastatin Calcium (Lipitor) 80 mg QHS PO Last administered on 03/23/19 20:32; Admin Dose 80 MG; Start 03/23/19 at 21:00 Carvedilol (Coreg) 25 mg BID PO Last administered on 03/24/19 08:10; Admin Dose 25 MG; Start 03/23/19 at 21:00 Clopidogrel Bisulfate (plaVIX) 75 mg DAILY PO Last administered on 03/24/19 08:10; Admin Dose 75 MG; Start 03/24/19 at 09:00 Furosemide (Lasix) 40 mg DAILY PO Last administered on 03/24/19 08:09; Admin Dose 40 MG; Start 03/24/19 at 09:00 Lorazepam (Ativan) 0.5 mg HS PRN PO ANXIETY Last administered on 03/23/19 19:14; Admin Dose 0.5 MG; Start 03/23/19 at 17:00 Losartan Potassium (Cozaar) 100 mg DAILY PO Last administered on 03/24/19 08:10; Admin Dose 100 MG; Start 03/24/19 at 09:00 Metformin HCl (Glucophage) 1,000 mg WITH BREAKFAST DINNE PO Last administered on 03/24/19 17:01; Admin Dose 1,000 MG; Start 03/23/19 at 18:00 Senna (Senokot) 1 tab DAILY PO Last administered on 03/24/19 08:09; Admin Dose 1 TAB; Start 03/24/19 at 09:00 Diagnostic Test (Pha) (Accu-Chek) 1 ea 02 XX Last administered on 03/24/19 01:55; Admin Dose 1 EA; Start 03/24/19 at 02:00 Insulin Aspart (Novolog Insulin Pen) NOVOLOG *MILD* ALGORITHM WITH MEALS BEDTIME SC Last administered on 03/24/19 17:00; Admin Dose 3 UNIT; Start 03/23/19 at 18:00 Miscellaneous Information 1 ea NOTE XX ; Start 03/23/19 at 17:30 Glucose (Glutose) 15 gm Q15M PRN PO DECREASED GLUCOSE; Start 03/23/19 at 17:30 Glucose (Glutose) 22.5 gm Q15M PRN PO DECREASED GLUCOSE; Start 03/23/19 at 17:30 Dextrose (D50w Syringe) 25 ml Q15M PRN IV DECREASED GLUCOSE; Start 03/23/19 at 17:30 Dextrose (D50w Syringe) 50 ml Q15M PRN IV DECREASED GLUCOSE; Start 03/23/19 at 17:30 Glucagon (Glucagen) 1 mg Q15M PRN IM DECREASED GLUCOSE; Start 03/23/19 at 17:30 Glucose (Glutose) 15 gm Q15M PRN BUCCAL DECREASED GLUCOSE; Start 03/23/19 at 17:30 Miscellaneous Information 1 ea NOTE XX ; Start 03/23/19 at 18:00 Glucose (Glutose) 15 gm Q15M PRN PO DECREASED GLUCOSE; Start 03/23/19 at 18:00 Glucose (Glutose) 22.5 gm Q15M PRN PO DECREASED GLUCOSE; Start 03/23/19 at 18:00 Dextrose (D50w Syringe) 25 ml Q15M PRN IV DECREASED GLUCOSE; Start 03/23/19 at 18:00 Dextrose (D50w Syringe) 50 ml Q15M PRN IV DECREASED GLUCOSE; Start 03/23/19 at 18:00 Glucagon (Glucagen) 1 mg Q15M PRN IM DECREASED GLUCOSE; Start 03/23/19 at 18:00 Glucose (Glutose) 15 gm Q15M PRN BUCCAL DECREASED GLUCOSE; Start 03/23/19 at 18:00 Insulin Glargine (Lantus) 45 units BID SC Last administered on 03/24/19at 12:08; Admin Dose 45 UNITS; Start 03/23/19 at 21:00 Isosorbide Mononitrate (Imdur) 30 mg DAILY PO Last administered on 03/24/19at 08:11; Admin Dose 30 MG; Start 03/24/19 at 09:00 EZETIMIBE (Zetia) 10 mg QHS PO ; Start 03/24/19 at 21:00 Insulin Aspart (Novolog Insulin Pen) 10 unit WITH MEALS SC Last administered on 03/24/19at 17:00; Admin Dose 10 UNIT; Start 03/24/19 at 17:55 Vancomycin HCl (Vanco Iv Per Pharmacy) VANCOMYCIN PER PHARMACY PER PROTOCOL XX ; Start 03/24/19 at 14:30 Vancomycin HCl 1.5 gm/Sodium Chloride 250 ml @ 83.333 mls/ hr ONCE IVPB Last administered on 03/24/19at 16:41; Admin Dose 83.333 MLS/HR; Start 03/24/19 at 16:30; Stop 03/24/19 at 23:00 Vancomycin HCl 250 ml @ 125 mls/hr Q8H IVPB ; Start 03/25/19 at 01:00 Miscellaneous Information (*Rx Drug Level Order Reminder*) VANCO TR LEVEL PRIOR... 1600 ONCE XX ; Start 03/25/19 at 16:00; Stop 03/25/19 at 16:01 [facility] March 24, 2019 19:07
[2019-03-24] MEDS: EZETIMIBE 10 MG TAB PO SCH (20:07)
[2019-03-24] MEDS: ATORVASTATIN 80 MG TAB PO SCH (20:07)
[2019-03-24] MEDS: LORAZEPAM 0.5 MG TAB PO PRN (20:11)
[2019-03-24] MEDS: HYDROCODONE/APAP (5/325) TAB PO PRN (23:18)
[2019-03-25] VITALS (12 sets, daily range): BP systolic 113–138; BP diastolic 57–78; PULSE 65–88; RESP 16–20
[2019-03-25] MEDS: VANCOMYCIN 1 GM 250 ML IVPB SCH ×3 (00:34→16:48)
[2019-03-25] MEDS: ACCU-CHEK XX SCH (02:00)
[2019-03-25] MEDS: HYDROCODONE/APAP (5/325) TAB PO PRN ×3 (05:21→20:54)
[2019-03-25] MEDS ORDERED: LORAZEPAM 0.5 MG TAB PO ONE (06:00)
[2019-03-25] MEDS: INSULIN ASPART [NOVOLOG] 3 ML PEN SC SCH ×7 (07:50→22:00)
[2019-03-25] MEDS: metFORMIN 500 MG TAB PO SCH ×2 (07:57→17:57)
[2019-03-25] MEDS: INSULIN GLARGINE [LANTus] (100 UNITS/ML) SYG SC SCH ×2 (08:04→22:04)
[2019-03-25] MEDS: FUROSEMIDE 40 MG TAB PO SCH (08:42)
[2019-03-25] MEDS: ASPIRIN (EC) 81 MG TAB PO SCH (08:42)
[2019-03-25] MEDS: AMLODIPINE 2.5 MG TAB PO SCH (08:42)
[2019-03-25] MEDS: CLOPIDOGREL 75 MG TAB PO SCH (08:42)
[2019-03-25] MEDS: LOSARTAN 50 MG TAB PO SCH (08:42)
[2019-03-25] MEDS: SENNA TAB PO SCH (08:43)
[2019-03-25] MEDS: ISOSORBIDE MONONITRATE(SR)30 MG TAB PO SCH (08:43)
[2019-03-25] MEDS: ENOXAPARIN 40 MG/0.4 ML SYG SC SCH (08:50)
[2019-03-25] MEDS: LORAZEPAM 0.5 MG TAB PO PRN (16:46)
--- NOTE | 2019-03-25 16:54 | PN ---
Date/Time of Note Date/Time of Note DATE: 03/25/19 TIME: 16:50 Assessment/Plan VTE Prophylaxis Risk score (from Nsg)>0 risk: 4 Pharmacological prophylaxis: LMWH Lines/Catheters IV Catheter Type (from Nrsg): [place] Assessment/Plan Hospital Course 1. Chest pain likely secondary to hypertension No evidence of ACS at this time, clear for DC per cardiology Pain is now resolved Cardiology consultation with patient's senior art director Dr. Borges appreciated Continue cardiac meds 2. History of coronary disease status post CABG Continue cardiac meds 3. History of peripheral vascular disease status post left BKA over a year ago at outside hospital Patient is reporting pain at the left BKA stump site with ulceration, bleeding ulcer was noted Continue wound care Continue IV antibiotics with vancomycin Wound culture shows staph aureus ID consultation obtained Consultation with Dr. Fernandez obtained Of note patient had left BKA over a year ago at [place] 4. CHF-compensated 5. Hypertension-now stable Continue meds 6. Diabetes Continue schedule insulin, sliding scale Prophylaxis: Lovenox DC planning: Continue IV antibiotics, follow-up on ID and vascular recs Result Diagram: 03/25/19 0602 03/25/19 0602 Results 24hrs Laboratory Tests Test 03/24/19 20:05 03/24/19 21:53 03/25/19 06:02 03/25/19 07:50 Bedside Glucose 108 189 125 White Blood Count 7.8 # Red Blood Count 4.16 L Hemoglobin 10.9 L Hematocrit 34.9 L Mean Corpuscular 83.9 Volume Mean Corpuscular 26.2 L Hemoglobin Mean Corpuscular 31.2 L Hemoglobin Concent Red Cell 15.7 H Distribution Width Platelet Count 259 Mean Platelet Volume 11.0 H Immature 0.400 Granulocytes % Neutrophils % 64.0 Lymphocytes % 26.7 Monocytes % 7.2 Eosinophils % 1.2 Basophils % 0.5 Nucleated Red Blood 0.0 Cells % Immature 0.030 Granulocytes # Neutrophils # 5.0 Lymphocytes # 2.1 Monocytes # 0.6 Eosinophils # 0.1 Basophils # 0.0 Nucleated Red Blood 0.0 Cells # Sodium Level 142 Potassium Level 3.8 Chloride Level 107 Carbon Dioxide Level 29 Anion Gap 6 Blood Urea Nitrogen 13 Creatinine 0.77 Est Glomerular > 60 Filtrat Rate mL/min Glucose Level 106 Calcium Level 9.2 Magnesium Level 1.9 Total Bilirubin 0.4 Direct Bilirubin 0.00 Indirect Bilirubin 0.4 Aspartate Amino 24 Transf (AST/SGOT) Alanine 15 Aminotransferase (AL T/SGPT) Alkaline Phosphatase 73 B-Type Natriuretic 1060 H Peptide Total Protein 7.0 Albumin 3.8 Globulin 3.20 Albumin/Globulin 1.18 Ratio Triglycerides Level 104 Cholesterol Level 143 LDL Cholesterol, 94 Calculated HDL Cholesterol 28 L Cholesterol/HDL 5.1 Ratio Test 03/25/19 11:46 03/25/19 14:45 Bedside Glucose 101 160 Subjective 24 Hr Interval Summary Skin: bruising Exam/Review of Systems Exam Vitals Vital Signs Date Temp Pulse Resp B/P (MAP) Pulse Ox O2 O2 Flow FiO2 Time Delivery Rate 03/25/19 65 16:39 03/25/19 2.0 15:43 03/25/19 98.0 16 113/58 96 Nasal 15:11 (76) Cannula Intake and Output 03/24/19 03/24/19 03/25/19 1515:00 23:00 07:00 IntakeIntake Total 200 ml 650 ml OutputOutput Total 400 ml 1200 ml BalanceBalance -200 ml -550 ml Constitutional: alert, oriented Respiratory: clear to auscultation Cardiovascular: regular rate and rhythm Gastrointestinal: soft; No distended Musculoskeletal: No nl extremities to inspection Results Results 24hrs Laboratory Tests Test 03/24/19 20:05 03/24/19 21:53 03/25/19 06:02 03/25/19 07:50 Bedside Glucose 108 189 125 White Blood Count 7.8 # Red Blood Count 4.16 L Hemoglobin 10.9 L Hematocrit 34.9 L Mean Corpuscular 83.9 Volume Mean Corpuscular 26.2 L Hemoglobin Mean Corpuscular 31.2 L Hemoglobin Concent Red Cell 15.7 H Distribution Width Platelet Count 259 Mean Platelet Volume 11.0 H Immature 0.400 Granulocytes % Neutrophils % 64.0 Lymphocytes % 26.7 Monocytes % 7.2 Eosinophils % 1.2 Basophils % 0.5 Nucleated Red Blood 0.0 Cells % Immature 0.030 Granulocytes # Neutrophils # 5.0 Lymphocytes # 2.1 Monocytes # 0.6 Eosinophils # 0.1 Basophils # 0.0 Nucleated Red Blood 0.0 Cells # Sodium Level 142 Potassium Level 3.8 Chloride Level 107 Carbon Dioxide Level 29 Anion Gap 6 Blood Urea Nitrogen 13 Creatinine 0.77 Est Glomerular > 60 Filtrat Rate mL/min Glucose Level 106 Calcium Level 9.2 Magnesium Level 1.9 Total Bilirubin 0.4 Direct Bilirubin 0.00 Indirect Bilirubin 0.4 Aspartate Amino 24 Transf (AST/SGOT) Alanine 15 Aminotransferase (AL T/SGPT) Alkaline Phosphatase 73 B-Type Natriuretic 1060 H Peptide Total Protein 7.0 Albumin 3.8 Globulin 3.20 Albumin/Globulin 1.18 Ratio Triglycerides Level 104 Cholesterol Level 143 LDL Cholesterol, 94 Calculated HDL Cholesterol 28 L Cholesterol/HDL 5.1 Ratio Test 03/25/19 11:46 03/25/19 14:45 Bedside Glucose 101 160 Medications Medication Current Medications Nitroglycerin (Nitroglycerin (Sl Tab) 0.4 Mg) 1 tab Q5M UP TO 3 DOSES PRN SL .CHEST PAIN; Start 03/23/19 at 12:30 IV Flush (NS 3 ml) 3 ml PER PROTOCOL IV ; Start 03/23/19 at 17:00 Ondansetron HCl (Zofran Inj) 4 mg Q6H PRN IV NAUSEA/VOMITING; Start 03/23/19 at 17:00 Acetaminophen (Tylenol Tab) 650 mg Q6H PRN PO .PAIN 1-3 OR TEMP; Start 03/23/19 at 17:00 Docusate Sodium (Colace) 100 mg Q12H PRN PO .CONSTIPATION Last administered on 03/25/19at 05:28; Admin Dose 100 MG; Start 03/23/19 at 17:00 Zolpidem Tartrate (Ambien) 5 mg QHS PRN PO .INSOMNIA; Start 03/23/19 at 17:00 Enoxaparin Sodium (Lovenox) 40 mg DAILY SC Last administered on 03/25/19at 08:50; Admin Dose 40 MG; Start 03/24/19 at 09:00 Amlodipine Besylate (Norvasc) 2.5 mg DAILY PO Last administered on 03/25/19at 08:42; Admin Dose 2.5 MG; Start 03/24/19 at 09:00 Aspirin (Halfprin) 81 mg DAILY PO Last administered on 03/25/19at 08:42; Admin Dose 81 MG; Start 03/24/19 at 09:00 Atorvastatin Calcium (Lipitor) 80 mg QHS PO Last administered on 03/24/19at 20:07; Admin Dose 80 MG; Start 03/23/19 at 21:00 Carvedilol (Coreg) 25 mg BID PO Last administered on 03/25/19 08:43; Admin Dose 25 MG; Start 03/23/19 at 21:00 Clopidogrel Bisulfate (plaVIX) 75 mg DAILY PO Last administered on 03/25/19 08:42; Admin Dose 75 MG; Start 03/24/19 at 09:00 Furosemide (Lasix) 40 mg DAILY PO Last administered on 03/25/19 08:42; Admin Dose 40 MG; Start 03/24/19 at 09:00 Lorazepam (Ativan) 0.5 mg HS PRN PO ANXIETY Last administered on 03/24/19 20:11; Admin Dose 0.5 MG; Start 03/23/19 at 17:00 Losartan Potassium (Cozaar) 100 mg DAILY PO Last administered on 03/25/19 08:42; Admin Dose 100 MG; Start 03/24/19 at 09:00 Metformin HCl (Glucophage) 1,000 mg WITH BREAKFAST DINNE PO Last administered on 03/25/19 07:57; Admin Dose 1,000 MG; Start 03/23/19 at 18:00 Senna (Senokot) 1 tab DAILY PO Last administered on 03/25/19 08:43; Admin Dose 1 TAB; Start 03/24/19 at 09:00 Diagnostic Test (Pha) (Accu-Chek) 1 ea 02 XX Last administered on 03/24/19 01:55; Admin Dose 1 EA; Start 03/24/19 at 02:00 Insulin Aspart (Novolog Insulin Pen) NOVOLOG *MILD* ALGORITHM WITH MEALS BEDTIME SC Last administered on 03/24/19 17:00; Admin Dose 3 UNIT; Start 03/23/19 at 18:00 Miscellaneous Information 1 ea NOTE XX ; Start 03/23/19 at 17:30 Glucose (Glutose) 15 gm Q15M PRN PO DECREASED GLUCOSE; Start 03/23/19 at 17:30 Glucose (Glutose) 22.5 gm Q15M PRN PO DECREASED GLUCOSE; Start 03/23/19 at 17:30 Dextrose (D50w Syringe) 25 ml Q15M PRN IV DECREASED GLUCOSE; Start 03/23/19 at 17:30 Dextrose (D50w Syringe) 50 ml Q15M PRN IV DECREASED GLUCOSE; Start 03/23/19 at 17:30 Glucagon (Glucagen) 1 mg Q15M PRN IM DECREASED GLUCOSE; Start 03/23/19 at 17:30 Glucose (Glutose) 15 gm Q15M PRN BUCCAL DECREASED GLUCOSE; Start 03/23/19 at 17:30 Miscellaneous Information 1 ea NOTE XX ; Start 03/23/19 at 18:00 Glucose (Glutose) 15 gm Q15M PRN PO DECREASED GLUCOSE; Start 03/23/19 at 18:00 Glucose (Glutose) 22.5 gm Q15M PRN PO DECREASED GLUCOSE; Start 03/23/19 at 18:00 Dextrose (D50w Syringe) 25 ml Q15M PRN IV DECREASED GLUCOSE; Start 03/23/19 at 18:00 Dextrose (D50w Syringe) 50 ml Q15M PRN IV DECREASED GLUCOSE; Start 03/23/19 at 18:00 Glucagon (Glucagen) 1 mg Q15M PRN IM DECREASED GLUCOSE; Start 03/23/19 at 18:00 Glucose (Glutose) 15 gm Q15M PRN BUCCAL DECREASED GLUCOSE; Start 03/23/19 at 18:00 Insulin Glargine (Lantus) 45 units BID SC Last administered on 03/25/19at 08:04; Admin Dose 45 UNITS; Start 03/23/19 at 21:00 Isosorbide Mononitrate (Imdur) 30 mg DAILY PO Last administered on 03/25/19at 08:43; Admin Dose 30 MG; Start 03/24/19 at 09:00 EZETIMIBE (Zetia) 10 mg QHS PO Last administered on 03/24/19at 20:07; Admin Dose 10 MG; Start 03/24/19 at 21:00 Insulin Aspart (Novolog Insulin Pen) 10 unit WITH MEALS SC Last administered on 03/25/19at 11:49; Admin Dose 10 UNIT; Start 03/24/19 at 17:55 Vancomycin HCl (Vanco Iv Per Pharmacy) VANCOMYCIN PER PHARMACY PER PROTOCOL XX ; Start 03/24/19 at 14:30 Vancomycin HCl 250 ml @ 125 mls/hr Q8H IVPB Last administered on 03/25/19at 08:42; Admin Dose 125 MLS/HR; Start 03/25/19 at 01:00 Acetaminophen/ Hydrocodone Bitart ([place] (5/325)) 1 tab Q4H PRN PO MODERATE PAIN LEVEL 4-6 Last administered on 03/25/19at 12:25; Admin Dose 1 TAB; Start 03/24/19 at 21:30 [facility] March 25, 2019 16:54
--- NOTE | 2019-03-25 17:37 | CONS ---
Consult Date/Type/Reason Admit Date/Time March 25, 2019 at 10:17 Initial Consult Date 03/24/19 Requesting Provider: NADER PLAZA Date/Time of Note DATE: 03/25/19 TIME: 17:35 Subjective Cardiology follow-up progress note Subjective: Patient with no chest pain or pressure no palpitation. Her foot pain is better. Objective: General: no acute distress HEENT: NC/AT. pupils are equal. round. NECK: NO JVD. no stridor. CV: RRR. systolic murmur; no gallop or rubs. PULM: no wheezing or rhonchi. GI: SOFT, NT, ND, no rebound or guarding Extremity: Left lower extremity status post BKA in dressing. neuro: awake and alert, OX3. Psych: calm and pleasant rectal: deferred : normal EKG was personally reviewed showed normal sinus rhythm. Inferior infarct age undetermined. Anterior infarct age undetermined. Nonspecific ST-T wave abnormalities Chest x-ray shows: No acute cardiopulmonary disease Objective Vitals Vital Signs Date Temp Pulse Resp B/P (MAP) Pulse Ox O2 O2 Flow FiO2 Time Delivery Rate 03/25/19 65 16:39 03/25/19 2.0 15:43 03/25/19 98.0 16 113/58 96 Nasal 15:11 (76) Cannula Intake and Output 03/24/19 03/24/19 03/25/19 1515:00 23:00 07:00 IntakeIntake Total 200 ml 650 ml OutputOutput Total 400 ml 1200 ml BalanceBalance -200 ml -550 ml Results/Medications Result Diagram: 03/25/19 0602 03/25/19 0602 Results 24 hrs Laboratory Tests Test 03/24/19 20:05 03/24/19 21:53 03/25/19 06:02 03/25/19 07:50 Bedside Glucose 108 189 125 White Blood Count 7.8 # Red Blood Count 4.16 L Hemoglobin 10.9 L Hematocrit 34.9 L Mean Corpuscular 83.9 Volume Mean Corpuscular 26.2 L Hemoglobin Mean Corpuscular 31.2 L Hemoglobin Concent Red Cell 15.7 H Distribution Width Platelet Count 259 Mean Platelet Volume 11.0 H Immature 0.400 Granulocytes % Neutrophils % 64.0 Lymphocytes % 26.7 Monocytes % 7.2 Eosinophils % 1.2 Basophils % 0.5 Nucleated Red Blood 0.0 Cells % Immature 0.030 Granulocytes # Neutrophils # 5.0 Lymphocytes # 2.1 Monocytes # 0.6 Eosinophils # 0.1 Basophils # 0.0 Nucleated Red Blood 0.0 Cells # Sodium Level 142 Potassium Level 3.8 Chloride Level 107 Carbon Dioxide Level 29 Anion Gap 6 Blood Urea Nitrogen 13 Creatinine 0.77 Est Glomerular > 60 Filtrat Rate mL/min Glucose Level 106 Calcium Level 9.2 Magnesium Level 1.9 Total Bilirubin 0.4 Direct Bilirubin 0.00 Indirect Bilirubin 0.4 Aspartate Amino 24 Transf (AST/SGOT) Alanine 15 Aminotransferase (AL T/SGPT) Alkaline Phosphatase 73 B-Type Natriuretic 1060 H Peptide Total Protein 7.0 Albumin 3.8 Globulin 3.20 Albumin/Globulin 1.18 Ratio Triglycerides Level 104 Cholesterol Level 143 LDL Cholesterol, 94 Calculated HDL Cholesterol 28 L Cholesterol/HDL 5.1 Ratio Test 03/25/19 11:46 03/25/19 14:45 03/25/19 16:29 03/25/19 16:50 Bedside Glucose 101 160 121 Vancomycin Level 14.9 Trough Home Meds Active Scripts Amlodipine Besylate* (Amlodipine Besylate*) 2.5 Mg Tablet, 2.5 MG PO DAILY for 30 Days, TAB Prov:SPEEDY BASS MD 02/21/19 Reported Medications Sennosides* (Senna Lax*) 8.6 Mg Tablet, 1 TAB PO DAILY, TAB 03/23/19 Insulin Lispro (Humalog) 100 Unit/1 Ml Cartridge, 0 SQ BID, EA 5-10 UNITS-SLIDING SCALE 03/23/19 Clopidogrel Bisulfate* (Clopidogrel Bisulfate*) 75 Mg Tablet, 75 MG PO DAILY, #30 TAB 03/23/19 Atorvastatin* (Atorvastatin*) 80 Mg Tablet, 80 MG PO QHS, #30 TAB 03/23/19 Metformin Hcl* (Metformin Hcl*) 1,000 Mg Tablet, 1000 MG PO WITH BREAKFAST DINNE, #60 TAB 03/23/19 Losartan Potassium* (Losartan Potassium*) 100 Mg Tablet, 100 MG PO DAILY, TAB 03/23/19 Carvedilol* (Carvedilol*) 25 Mg Tablet, 25 MG PO BID, #60 TAB 03/23/19 Aspirin* (Aspirin* EC) 81 Mg Tablet.dr, 81 MG PO DAILY, TAB 03/23/19 Furosemide* (Furosemide*) 40 Mg Tablet, 40 MG PO DAILY, TAB 03/23/19 Lorazepam* (Lorazepam*) 0.5 Mg Tablet, 0.5 MG PO HS PRN for ANXIETY, TAB 03/23/19 Insulin Glargine,Hum.rec.anlog (Basaglar Kwikpen U-100) 100 Unit/1 Ml Insuln.pen, 45 UNIT SC BID, EA 03/23/19 Discontinued Reported Medications Metformin Hcl* (Metformin Hcl*) 1,000 Mg Tablet, 1000 MG PO WITH LUNCH DINNER, #30 TAB 09/23/18 Nitroglycerin* (Nitrostat*) 0.4 Mg Tab.subl, 0.4 MG SL Q5MIN PRN for CHEST PAIN, BOTTLE 06/19/18 Magnesium Hydroxide* (Naylor' MOM*) 30 Ml Susp, 30 ML PO DAILY, ML 06/19/18 Lorazepam* (Lorazepam*) 0.5 Mg Tablet, 0.5 MG PO Q6 PRN for ANXIETY, TAB 06/19/18 Furosemide* (Furosemide*) 40 Mg/5 Ml Solution, 40 MG PO DAILY, #150 ML 06/19/18 Famotidine* (Famotidine*) 20 Mg Tablet, 20 MG PO DAILY, #30 TAB 06/19/18 Atorvastatin* (Atorvastatin*) 80 Mg Tablet, 80 MG PO QHS, #30 TAB 06/19/18 Aspirin Ec (Aspir 81) 81 Mg Tablet.dr, 81 MG PO DAILY, #30 TAB 06/19/18 Insulin Glargine* (Lantus*) 100 Unit/Ml Soln, 45 UNIT SC QHS, #1 VIAL 06/19/18 Discontinued Scripts Insulin Lispro (Humalog Kwikpen U-100) 100 Unit/1 Ml Insuln.pen, 15 UNIT SQ AC MEALS, #1 SYR #100 32 GAUGE INSULIN PEN NEEDLES Prov:JOHNSTON,RENATA V. TIP FINISHER 11/12/18 Spironolactone* (Aldactone*) 25 Mg Tablet, 25 MG PO DAILY@0600, #30 TAB Prov:JOHNSTON,RENATA V. TIP FINISHER 11/12/18 Carvedilol* (Carvedilol*) 6.25 Mg Tablet, 25 MG PO BID for 30 Days, #60 TAB Prov:JOHNSTON,RENATA V. TIP FINISHER 11/12/18 Clopidogrel Bisulfate (Clopidogrel) 75 Mg Tablet, 75 MG PO DAILY for 30 Days, # 30 TAB Prov:KAYCEE SWARTZ MD 06/22/18 Losartan Potassium* (Losartan Potassium*) 50 Mg Tablet, 50 MG PO BID for 30 Days, #60 TAB Prov:KAYCEE SWARTZ MD 06/21/18 Albuterol Sulfate* (Proair HFA*) 8.5 Gm Hfa.aer.ad, 2 PUFF INH Q4 for SHORTNESS OF BREATH, #1 INHALER Prov:TASHA WATERS NP 11/15/17 Medications Current Medications Nitroglycerin (Nitroglycerin (Sl Tab) 0.4 Mg) 1 tab Q5M UP TO 3 DOSES PRN SL .CHEST PAIN; Start 03/23/19 at 12:30 IV Flush (NS 3 ml) 3 ml PER PROTOCOL IV ; Start 03/23/19 at 17:00 Ondansetron HCl (Zofran Inj) 4 mg Q6H PRN IV NAUSEA/VOMITING; Start 03/23/19 at 17:00 Acetaminophen (Tylenol Tab) 650 mg Q6H PRN PO .PAIN 1-3 OR TEMP; Start 03/23/19 at 17:00 Docusate Sodium (Colace) 100 mg Q12H PRN PO .CONSTIPATION Last administered on 03/25/19at 05:28; Admin Dose 100 MG; Start 03/23/19 at 17:00 Zolpidem Tartrate (Ambien) 5 mg QHS PRN PO .INSOMNIA; Start 03/23/19 at 17:00 Enoxaparin Sodium (Lovenox) 40 mg DAILY SC Last administered on 03/25/19at 08:50; Admin Dose 40 MG; Start 03/24/19 at 09:00 Amlodipine Besylate (Norvasc) 2.5 mg DAILY PO Last administered on 03/25/19at 08:42; Admin Dose 2.5 MG; Start 03/24/19 at 09:00 Aspirin (Halfprin) 81 mg DAILY PO Last administered on 03/25/19at 08:42; Admin Dose 81 MG; Start 03/24/19 at 09:00 Atorvastatin Calcium (Lipitor) 80 mg QHS PO Last administered on 03/24/19at 20:07; Admin Dose 80 MG; Start 03/23/19 at 21:00 Carvedilol (Coreg) 25 mg BID PO Last administered on 03/25/19 08:43; Admin Dose 25 MG; Start 03/23/19 at 21:00 Clopidogrel Bisulfate (plaVIX) 75 mg DAILY PO Last administered on 03/25/19 08:42; Admin Dose 75 MG; Start 03/24/19 at 09:00 Furosemide (Lasix) 40 mg DAILY PO Last administered on 03/25/19 08:42; Admin Dose 40 MG; Start 03/24/19 at 09:00 Lorazepam (Ativan) 0.5 mg HS PRN PO ANXIETY Last administered on 03/25/19 16:46; Admin Dose 0.5 MG; Start 03/23/19 at 17:00 Losartan Potassium (Cozaar) 100 mg DAILY PO Last administered on 03/25/19 08:42; Admin Dose 100 MG; Start 03/24/19 at 09:00 Metformin HCl (Glucophage) 1,000 mg WITH BREAKFAST DINNE PO Last administered on 03/25/19 07:57; Admin Dose 1,000 MG; Start 03/23/19 at 18:00 Senna (Senokot) 1 tab DAILY PO Last administered on 03/25/19 08:43; Admin Dose 1 TAB; Start 03/24/19 at 09:00 Diagnostic Test (Pha) (Accu-Chek) 1 ea 02 XX Last administered on 03/24/19 01:55; Admin Dose 1 EA; Start 03/24/19 at 02:00 Insulin Aspart (Novolog Insulin Pen) NOVOLOG *MILD* ALGORITHM WITH MEALS BEDTIME SC Last administered on 03/24/19 17:00; Admin Dose 3 UNIT; Start 03/23/19 at 18:00 Miscellaneous Information 1 ea NOTE XX ; Start 03/23/19 at 17:30 Glucose (Glutose) 15 gm Q15M PRN PO DECREASED GLUCOSE; Start 03/23/19 at 17:30 Glucose (Glutose) 22.5 gm Q15M PRN PO DECREASED GLUCOSE; Start 03/23/19 at 17:30 Dextrose (D50w Syringe) 25 ml Q15M PRN IV DECREASED GLUCOSE; Start 03/23/19 at 17:30 Dextrose (D50w Syringe) 50 ml Q15M PRN IV DECREASED GLUCOSE; Start 03/23/19 at 17:30 Glucagon (Glucagen) 1 mg Q15M PRN IM DECREASED GLUCOSE; Start 03/23/19 at 17:30 Glucose (Glutose) 15 gm Q15M PRN BUCCAL DECREASED GLUCOSE; Start 03/23/19 at 17:30 Miscellaneous Information 1 ea NOTE XX ; Start 03/23/19 at 18:00 Glucose (Glutose) 15 gm Q15M PRN PO DECREASED GLUCOSE; Start 03/23/19 at 18:00 Glucose (Glutose) 22.5 gm Q15M PRN PO DECREASED GLUCOSE; Start 03/23/19 at 18:00 Dextrose (D50w Syringe) 25 ml Q15M PRN IV DECREASED GLUCOSE; Start 03/23/19 at 18:00 Dextrose (D50w Syringe) 50 ml Q15M PRN IV DECREASED GLUCOSE; Start 03/23/19 at 18:00 Glucagon (Glucagen) 1 mg Q15M PRN IM DECREASED GLUCOSE; Start 03/23/19 at 18:00 Glucose (Glutose) 15 gm Q15M PRN BUCCAL DECREASED GLUCOSE; Start 03/23/19 at 18:00 Insulin Glargine (Lantus) 45 units BID SC Last administered on 03/25/19at 08:04; Admin Dose 45 UNITS; Start 03/23/19 at 21:00 Isosorbide Mononitrate (Imdur) 30 mg DAILY PO Last administered on 03/25/19at 08:43; Admin Dose 30 MG; Start 03/24/19 at 09:00 EZETIMIBE (Zetia) 10 mg QHS PO Last administered on 03/24/19at 20:07; Admin Dose 10 MG; Start 03/24/19 at 21:00 Insulin Aspart (Novolog Insulin Pen) 10 unit WITH MEALS SC Last administered on 03/25/19at 11:49; Admin Dose 10 UNIT; Start 03/24/19 at 17:55 Vancomycin HCl (Vanco Iv Per Pharmacy) VANCOMYCIN PER PHARMACY PER PROTOCOL XX ; Start 03/24/19 at 14:30 Vancomycin HCl 250 ml @ 125 mls/hr Q8H IVPB Last administered on 03/25/19at 16:48; Admin Dose 125 MLS/HR; Start 03/25/19 at 01:00 Acetaminophen/ Hydrocodone Bitart ([place] (5/325)) 1 tab Q4H PRN PO MODERATE PAIN LEVEL 4-6 Last administered on 03/25/19at 12:25; Admin Dose 1 TAB; Start 03/24/19 at 21:30 Assessment/Plan Hospital Course (Demo Recall) Chest pain ; probably due to his chronic angina secondary to chronic total occlusions. Has resolved now with negative troponins Coronary artery with history of multiple PCI and bypass surgery Ischemic cardiomyopathy Hypertension Severe peripheral vascular disease status post left BKA multiple revascularization of lower extremities Diabetes Dyslipidemia Recommendations: Continue with the losartan and Coreg. Continue with high-dose statin. Zetia has been added as well for better management of his lipids Stump management and wound care as per internal medicine and consultants Diabetic management as per internal medicine Continue with Plavix Nitrates has been added No further cardiac recommendation at this point. I will follow-up as needed over the weekend. Placement do not hesitate to contact me with any further cardiac questions Patient has been advised to follow-up as an outpatient RACHEL CALLAHAN MD [facility] RACHEL CALLAHAN MD March 25, 2019 17:37
--- NOTE | 2019-03-25 19:36 | CONS ---
DATE OF ADMISSION: 03/25/2019 DATE OF CONSULTATION: 03/25/2019 TYPE OF CONSULTATION: Infectious disease REQUESTING PHYSICIAN: Emma Gupta MD Thank you Dr. Gupta for this consultation. HISTORY OF PRESENT ILLNESS: A well-developed, well-nourished 64-year-old [place] man with a histor y of diabetes, coronary artery disease status post CABG, hypertension, CHF, peripheral arterial disea se, status post left below knee amputation, history of chronic tobacco use, admitted with left stump cellulitis and chest pain. The patient came with a ____ of 10.8, H and H 10.6 and 33.3, platelets 24 4, no shift, no bands. Normal electrolytes. BUN 14, creatinine 0.79, glucose 301, negative troponin . Wound culture preliminary growing Staphylococcus aureus. The patient has a chest x-ray done on ad mission that revealed no acute pulmonary abnormality. CT of the brain revealed no evidence of acute intracranial hemorrhage or intracranial pathology. He was started on IV vancomycin. HE DOES NOT HAVE ANY ALLERGIES TO MEDICATIONS. ANTIMICROBIALS MEDICATIONS: He is also on: 1. Zetia 10 mg at bedtime. 2. 10 units of NovoLog subcutaneously with meals. 3. Lovenox 40 mg daily subq. 4. Norvasc 2.5 mg daily. 5. Aspirin 81 mg daily. 6. Plavix 75 mg daily. 7. Lasix 40 mg daily. 8. Cozaar 100 mg daily. 9. Senokot 1 tablet daily. 10. Imdur 30 mg daily. 11. Insulin sliding scale. 12. Lipitor 80 mg at bedtime. 13. Coreg 25 mg b.i.d. SOCIAL HISTORY: The patient lives at home with the family. REVIEW OF SYSTEMS: All negative except as per history of present illness. PHYSICAL EXAMINATION: VITAL SIGNS: Temperature 98, pulse 65, respirations 16, blood pressure 113/58, saturation 96% on james al cannula. GENERAL: This is a well-developed, well-nourished elderly [place] man who is alert, in no distress. HEENT: Head atraumatic, normocephalic. Sclerae anicteric. Buccal mucosa dry. NECK: Supple. CHEST: Rise symmetrical. Breath sounds clear. HEART: S1, S2. ABDOMEN: Soft, bowel sounds present. EXTREMITIES: Left stump erythema and small draining wound. DIAGNOSTIC IMPRESSION: A 64-year-old man with numerous medical problems admitted with left stump aguila lulitis with culture preliminary growing Staphylococcus aureus. The patient is on appropriate antibi otics. Pending vascular surgery evaluation. He is clinically and hemodynamically stable. He is anderson ng seen by cardiology as well. We will await for final cultures. Consider MRI of left stump. Discu ssed with Dr. Arana who is covering for Dr. Cade. Dictated By: ALEX GARCIA SOFT IRON INSPECTOR for HARRIS CADE MD NI/NTS Conf#: [id number] DID#: [id number]
[2019-03-25] MEDS: EZETIMIBE 10 MG TAB PO SCH (20:53)
[2019-03-25] MEDS: ATORVASTATIN 80 MG TAB PO SCH (20:54)
[2019-03-26] VITALS (9 sets, daily range): BP systolic 114–134; BP diastolic 57–67; PULSE 63–88; RESP 16–20
[2019-03-26] MEDS: VANCOMYCIN 1 GM 250 ML IVPB SCH ×3 (00:51→17:13)
[2019-03-26] MEDS: HYDROCODONE/APAP (5/325) TAB PO PRN ×5 (00:51→19:36)
[2019-03-26] MEDS: ZOLPIDEM 5 MG TAB PO PRN ×2 (00:51→21:07)
[2019-03-26] MEDS: ACCU-CHEK XX SCH (02:00)
[2019-03-26] MEDS: INSULIN ASPART [NOVOLOG] 3 ML PEN SC SCH ×7 (09:00→20:16)
[2019-03-26] MEDS: CLOPIDOGREL 75 MG TAB PO SCH (09:29)
[2019-03-26] MEDS: ASPIRIN (EC) 81 MG TAB PO SCH (09:29)
[2019-03-26] MEDS: ISOSORBIDE MONONITRATE(SR)30 MG TAB PO SCH (09:30)
[2019-03-26] MEDS: AMLODIPINE 2.5 MG TAB PO SCH (09:31)
[2019-03-26] MEDS: FUROSEMIDE 40 MG TAB PO SCH (09:31)
[2019-03-26] MEDS: LOSARTAN 50 MG TAB PO SCH (09:51)
[2019-03-26] MEDS: SENNA TAB PO SCH (09:51)
[2019-03-26] MEDS: ENOXAPARIN 40 MG/0.4 ML SYG SC SCH (09:55)
[2019-03-26] MEDS: metFORMIN 500 MG TAB PO SCH ×2 (10:10→17:13)
[2019-03-26] MEDS: NITROGLYCERIN (SL) 0.4 MG TAB SL PRN ×5 (10:11→20:13)
[2019-03-26] MEDS: LORAZEPAM 0.5 MG TAB PO PRN (10:11)
[2019-03-26] MEDS: INSULIN GLARGINE [LANTus] (100 UNITS/ML) SYG SC SCH ×2 (10:24→20:17)
--- NOTE | 2019-03-26 12:11 | PN ---
Date/Time of Note Date/Time of Note DATE: 03/26/19 TIME: 12:10 Assessment/Plan VTE Prophylaxis Risk score (from Nsg)>0 risk: 5 Pharmacological prophylaxis: LMWH Lines/Catheters IV Catheter Type (from Nrsg): Saline Lock Assessment/Plan Hospital Course 1. Chest pain likely secondary to hypertension No evidence of ACS at this time, clear for DC per cardiology Pain is now resolved Cardiology consultation with patient's web applications developer Dr. Borges appreciated Continue cardiac meds 2. History of coronary disease status post CABG Continue cardiac meds 3. History of peripheral vascular disease status post left BKA over a year ago at outside hospital Patient is reporting pain at the left BKA stump site with ulceration, bleeding ulcer was noted Continue wound care Continue IV antibiotics with vancomycin Wound culture shows staph aureus ID consultation appreciated Consultation with Dr. Fernandez obtained Of note patient had left BKA over a year ago at [facility] 4. CHF-compensated 5. Hypertension-now stable Continue meds 6. Diabetes Continue schedule insulin, sliding scale Prophylaxis: Lovenox DC planning: Continue IV antibiotics, follow-up on ID and vascular recs Result Diagram: 03/25/19 0602 03/25/19 0602 Results 24hrs Laboratory Tests Test 03/25/19 14:45 03/25/19 16:29 03/25/19 16:50 03/25/19 20:49 Bedside Glucose 160 121 188 Vancomycin Level 14.9 Trough Test 03/26/19 01:58 03/26/19 08:23 03/26/19 09:35 03/26/19 10:22 Bedside Glucose 108 115 164 177 Exam/Review of Systems Exam Vitals Vital Signs Date Temp Pulse Resp B/P (MAP) Pulse Ox O2 O2 Flow FiO2 Time Delivery Rate 03/26/19 98.2 88 18 114/65 97 Nasal 11:21 (81) Cannula 03/26/19 2.0 02:10 Intake and Output 03/25/19 03/25/19 03/26/19 1515:00 23:00 07:00 IntakeIntake Total 800 ml 750 ml OutputOutput Total 1000 ml 1000 ml BalanceBalance -200 ml -250 ml Constitutional: alert, oriented Respiratory: clear to auscultation Cardiovascular: regular rate and rhythm Gastrointestinal: soft; No distended Musculoskeletal: No nl extremities to inspection Results Results 24hrs Laboratory Tests Test 03/25/19 14:45 03/25/19 16:29 03/25/19 16:50 03/25/19 20:49 Bedside Glucose 160 121 188 Vancomycin Level 14.9 Trough Test 03/26/19 01:58 03/26/19 08:23 03/26/19 09:35 03/26/19 10:22 Bedside Glucose 108 115 164 177 Medications Medication Current Medications Nitroglycerin (Nitroglycerin (Sl Tab) 0.4 Mg) 1 tab Q5M UP TO 3 DOSES PRN SL .CHEST PAIN Last administered on 03/26/19 10:20; Admin Dose 1 TAB; Start 03/23/19 at 12:30 IV Flush (NS 3 ml) 3 ml PER PROTOCOL IV ; Start 03/23/19 at 17:00 Ondansetron HCl (Zofran Inj) 4 mg Q6H PRN IV NAUSEA/VOMITING; Start 03/23/19 at 17:00 Acetaminophen (Tylenol Tab) 650 mg Q6H PRN PO .PAIN 1-3 OR TEMP; Start 03/23/19 at 17:00 Docusate Sodium (Colace) 100 mg Q12H PRN PO .CONSTIPATION Last administered on 03/25/19 05:28; Admin Dose 100 MG; Start 03/23/19 at 17:00 Zolpidem Tartrate (Ambien) 5 mg QHS PRN PO .INSOMNIA Last administered on 03/26/19 00:51; Admin Dose 5 MG; Start 03/23/19 at 17:00 Enoxaparin Sodium (Lovenox) 40 mg DAILY SC Last administered on 03/26/19 09:55; Admin Dose 40 MG; Start 03/24/19 at 09:00 Amlodipine Besylate (Norvasc) 2.5 mg DAILY PO Last administered on 03/26/19 09:31; Admin Dose 2.5 MG; Start 03/24/19 at 09:00 Aspirin (Halfprin) 81 mg DAILY PO Last administered on 03/26/19 09:29; Admin Dose 81 MG; Start 03/24/19 at 09:00 Atorvastatin Calcium (Lipitor) 80 mg QHS PO Last administered on 03/25/19 20:54; Admin Dose 80 MG; Start 03/23/19 at 21:00 Carvedilol (Coreg) 25 mg BID PO Last administered on 03/26/19 09:30; Admin Dose 25 MG; Start 03/23/19 at 21:00 Clopidogrel Bisulfate (plaVIX) 75 mg DAILY PO Last administered on 03/26/19 09:29; Admin Dose 75 MG; Start 03/24/19 at 09:00 Furosemide (Lasix) 40 mg DAILY PO Last administered on 03/26/19 09:31; Admin Dose 40 MG; Start 03/24/19 at 09:00 Lorazepam (Ativan) 0.5 mg HS PRN PO ANXIETY Last administered on 03/26/19 10:11; Admin Dose 0.5 MG; Start 03/23/19 at 17:00 Losartan Potassium (Cozaar) 100 mg DAILY PO Last administered on 03/26/19 09:51; Admin Dose 100 MG; Start 03/24/19 at 09:00 Metformin HCl (Glucophage) 1,000 mg WITH BREAKFAST DINNE PO Last administered on 03/26/19 10:10; Admin Dose 1,000 MG; Start 03/23/19 at 18:00 Senna (Senokot) 1 tab DAILY PO Last administered on 03/26/19 09:51; Admin Dose 1 TAB; Start 03/24/19 at 09:00 Diagnostic Test (Pha) (Accu-Chek) 1 ea 02 XX Last administered on 03/24/19 01:55; Admin Dose 1 EA; Start 03/24/19 at 02:00 Insulin Aspart (Novolog Insulin Pen) NOVOLOG *MILD* ALGORITHM WITH MEALS BEDTIME SC Last administered on 03/24/19 17:00; Admin Dose 3 UNIT; Start 03/23/19 at 18:00 Miscellaneous Information 1 ea NOTE XX ; Start 03/23/19 at 17:30 Glucose (Glutose) 15 gm Q15M PRN PO DECREASED GLUCOSE; Start 03/23/19 at 17:30 Glucose (Glutose) 22.5 gm Q15M PRN PO DECREASED GLUCOSE; Start 03/23/19 at 17:30 Dextrose (D50w Syringe) 25 ml Q15M PRN IV DECREASED GLUCOSE; Start 03/23/19 at 17:30 Dextrose (D50w Syringe) 50 ml Q15M PRN IV DECREASED GLUCOSE; Start 03/23/19 at 17:30 Glucagon (Glucagen) 1 mg Q15M PRN IM DECREASED GLUCOSE; Start 03/23/19 at 17:30 Glucose (Glutose) 15 gm Q15M PRN BUCCAL DECREASED GLUCOSE; Start 03/23/19 at 17:30 Miscellaneous Information 1 ea NOTE XX ; Start 03/23/19 at 18:00 Glucose (Glutose) 15 gm Q15M PRN PO DECREASED GLUCOSE; Start 03/23/19 at 18:00 Glucose (Glutose) 22.5 gm Q15M PRN PO DECREASED GLUCOSE; Start 03/23/19 at 18:00 Dextrose (D50w Syringe) 25 ml Q15M PRN IV DECREASED GLUCOSE; Start 03/23/19 at 18:00 Dextrose (D50w Syringe) 50 ml Q15M PRN IV DECREASED GLUCOSE; Start 03/23/19 at 18:00 Glucagon (Glucagen) 1 mg Q15M PRN IM DECREASED GLUCOSE; Start 03/23/19 at 18:00 Glucose (Glutose) 15 gm Q15M PRN BUCCAL DECREASED GLUCOSE; Start 03/23/19 at 18:00 Insulin Glargine (Lantus) 45 units BID SC Last administered on 03/26/19at 10:24; Admin Dose 45 UNITS; Start 03/23/19 at 21:00 Isosorbide Mononitrate (Imdur) 30 mg DAILY PO Last administered on 03/26/19at 09:30; Admin Dose 30 MG; Start 03/24/19 at 09:00 EZETIMIBE (Zetia) 10 mg QHS PO Last administered on 03/25/19at 20:53; Admin Dose 10 MG; Start 03/24/19 at 21:00 Insulin Aspart (Novolog Insulin Pen) 10 unit WITH MEALS SC Last administered on 03/26/19at 09:39; Admin Dose 10 UNIT; Start 03/24/19 at 17:55 Vancomycin HCl (Vanco Iv Per Pharmacy) VANCOMYCIN PER PHARMACY PER PROTOCOL XX ; Start 03/24/19 at 14:30 Vancomycin HCl 250 ml @ 125 mls/hr Q8H IVPB Last administered on 03/26/19at 09:49; Admin Dose 125 MLS/HR; Start 03/25/19 at 01:00 Acetaminophen/ Hydrocodone Bitart ([place] (5/325)) 1 tab Q4H PRN PO MODERATE PAIN LEVEL 4-6 Last administered on 5/25/19at 09:26; Admin Dose 1 TAB; Start 03/24/19 at 21:30 NADER PLAZA March 26, 2019 12:11
--- NOTE | 2019-03-26 19:04 | CONS ---
Assessment/Plan Assessment/Plan Hospital Course (Demo Recall) ID PROGRESS NOTE CURRENT ABX: DAY #=> 24H INTERVAL SUMMARY * A/A/O -- no fevers, VSS, NAD, voiding well into urinal * C/O pruritic manohar-anal area -- suspect yeast he and spouse request anti-fungal cream IMAGING * 03/23/19 CXR: 1. No acute pulmonary abnormality. * 03/24/[address]: IMPRESSION: * 1. No evidence of acute intracranial hemorrhage, infarcts, or acute intra cranial pathology. * 2. Mild chronic microvascular ischemic disease and diffuse volume loss. * 3. Severe atherosclerotic vascular disease MICRO/OTHER * 03/24/19 STUMP WOUND: WOUND CULTURE Final Organism 1 STAPHYLOCOCCUS AUREUS QUANTITY 1+ S AUREUS M.I.C. RX --------- --- CEFAZOLIN S CIPROFLOXACIN <=0.5 S CLINDAMYCIN <=0.25 S DOXYCYCLINE S ERYTHROMYCIN <=0.25 S LEVOFLOXACIN 0.25 S OXACILLIN 0.5 S PENICILLIN-G >=0.5 R RIFAMPIN <=0.5 S VANCOMYCIN 1 S TRIMETHOPRIM/SULFAMETHOXAZOLE <=10 S PHYSICAL EXAMINATION: GENERAL: VSS, NAD, HEENT: AT, NC, NECK: WNL CHEST: Equal chest rise bilaterally without dyspnea on observation ABD: Soft, ND EXTREMITIES: Warm, dry, There is a 1 cm opening in the mid aspect of the stump minimal, drainage coming out. SKIN: No rash, no diaphoresis ID ASSESSMENT 64 yo M admit with: SIRS w/low grade temps and mild leukocytosis => Improved Acute left stump cellulitis with 1cm wound opening growing Staphylococcus aureus. 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 Check MRSA nares 2. Start Nystatin cream for pruritic perineum rash 3. Watch renal fx on Vanco IV . Consultation Date/Type/Reason Admit Date/Time March 25, 2019 at 10:17 Initial Consult Date 03/24/19 Requesting Provider: NADER PLAZA Date/Time of Note DATE: 03/26/19 TIME: 19:03 Exam/Review of Systems Exam Vitals Vital Signs Date Temp Pulse Resp B/P (MAP) Pulse Ox O2 O2 Flow FiO2 Time Delivery Rate 03/26/19 65 16:00 03/26/19 98.0 16 118/57 97 Nasal 15:17 (77) Cannula 03/26/19 2.0 02:10 Intake and Output 03/25/19 03/25/19 03/26/19 1515:00 23:00 07:00 IntakeIntake Total 800 ml 750 ml OutputOutput Total 1000 ml 1000 ml BalanceBalance -200 ml -250 ml Results Result Diagram: 03/25/19 0602 03/25/19 0602 Results 24hrs Laboratory Tests Test 03/25/19 20:49 03/26/19 01:58 03/26/19 08:23 03/26/19 09:35 Bedside Glucose 188 108 115 164 Test 03/26/19 10:22 03/26/19 13:02 03/26/19 13:33 03/26/19 16:16 Bedside Glucose 177 260 H 259 H 148 Test 03/26/19 17:06 03/26/19 18:02 03/26/19 18:07 03/26/19 18:13 Bedside Glucose 126 76 79 92 Test 03/26/19 18:48 Bedside Glucose 124 Medications Medication Current Medications Nitroglycerin (Nitroglycerin (Sl Tab) 0.4 Mg) 1 tab Q5M UP TO 3 DOSES PRN SL .CHEST PAIN Last administered on 03/26/19at 16:28; Admin Dose 1 TAB; Start 03/23/19 at 12:30 IV Flush (NS 3 ml) 3 ml PER PROTOCOL IV ; Start 03/23/19 at 17:00 Ondansetron HCl (Zofran Inj) 4 mg Q6H PRN IV NAUSEA/VOMITING; Start 03/23/19 at 17:00 Acetaminophen (Tylenol Tab) 650 mg Q6H PRN PO .PAIN 1-3 OR TEMP; Start 03/23/19 at 17:00 Docusate Sodium (Colace) 100 mg Q12H PRN PO .CONSTIPATION Last administered on 03/25/19 05:28; Admin Dose 100 MG; Start 03/23/19 at 17:00 Zolpidem Tartrate (Ambien) 5 mg QHS PRN PO .INSOMNIA Last administered on 03/26/19 00:51; Admin Dose 5 MG; Start 03/23/19 at 17:00 Enoxaparin Sodium (Lovenox) 40 mg DAILY SC Last administered on 03/26/19 09:55; Admin Dose 40 MG; Start 03/24/19 at 09:00 Amlodipine Besylate (Norvasc) 2.5 mg DAILY PO Last administered on 03/26/19 09:31; Admin Dose 2.5 MG; Start 03/24/19 at 09:00 Aspirin (Halfprin) 81 mg DAILY PO Last administered on 03/26/19 09:29; Admin Dose 81 MG; Start 03/24/19 at 09:00 Atorvastatin Calcium (Lipitor) 80 mg QHS PO Last administered on 03/25/19 20:54; Admin Dose 80 MG; Start 03/23/19 at 21:00 Carvedilol (Coreg) 25 mg BID PO Last administered on 03/26/19 09:30; Admin Dose 25 MG; Start 03/23/19 at 21:00 Clopidogrel Bisulfate (plaVIX) 75 mg DAILY PO Last administered on 03/26/19 09:29; Admin Dose 75 MG; Start 03/24/19 at 09:00 Furosemide (Lasix) 40 mg DAILY PO Last administered on 03/26/19 09:31; Admin Dose 40 MG; Start 03/24/19 at 09:00 Lorazepam (Ativan) 0.5 mg HS PRN PO ANXIETY Last administered on 03/26/19 10:11; Admin Dose 0.5 MG; Start 03/23/19 at 17:00 Losartan Potassium (Cozaar) 100 mg DAILY PO Last administered on 03/26/19 09:51; Admin Dose 100 MG; Start 03/24/19 at 09:00 Metformin HCl (Glucophage) 1,000 mg WITH BREAKFAST DINNE PO Last administered on 5/25/19at 17:13; Admin Dose 1,000 MG; Start 03/23/19 at 18:00 Senna (Senokot) 1 tab DAILY PO Last administered on 03/26/19at 09:51; Admin Dose 1 TAB; Start 03/24/19 at 09:00 Diagnostic Test (Pha) (Accu-Chek) 1 ea 02 XX Last administered on 03/24/19at 01:55; Admin Dose 1 EA; Start 03/24/19 at 02:00 Insulin Aspart (Novolog Insulin Pen) NOVOLOG *MILD* ALGORITHM WITH MEALS BE DTIME SC Last administered on 03/26/19at 13:35; Admin Dose 3 UNIT; Start 03/23/19 at 18:00 Miscellaneous Information 1 ea NOTE XX ; Start 03/23/19 at 17:30 Glucose (Glutose) 15 gm Q15M PRN PO DECREASED GLUCOSE; Start 03/23/19 at 17:30 Glucose (Glutose) 22.5 gm Q15M PRN PO DECREASED GLUCOSE; Start 03/23/19 at 17:30 Dextrose (D50w Syringe) 25 ml Q15M PRN IV DECREASED GLUCOSE; Start 03/23/19 at 17:30 Dextrose (D50w Syringe) 50 ml Q15M PRN IV DECREASED GLUCOSE; Start 03/23/19 at 17:30 Glucagon (Glucagen) 1 mg Q15M PRN IM DECREASED GLUCOSE; Start 03/23/19 at 17:30 Glucose (Glutose) 15 gm Q15M PRN BUCCAL DECREASED GLUCOSE; Start 03/23/19 at 17:30 Miscellaneous Information 1 ea NOTE XX ; Start 03/23/19 at 18:00 Glucose (Glutose) 15 gm Q15M PRN PO DECREASED GLUCOSE; Start 03/23/19 at 18:00 Glucose (Glutose) 22.5 gm Q15M PRN PO DECREASED GLUCOSE; Start 03/23/19 at 18:00 Dextrose (D50w Syringe) 25 ml Q15M PRN IV DECREASED GLUCOSE; Start 03/23/19 at 18:00 Dextrose (D50w Syringe) 50 ml Q15M PRN IV DECREASED GLUCOSE; Start 03/23/19 at 18:00 Glucagon (Glucagen) 1 mg Q15M PRN IM DECREASED GLUCOSE; Start 03/23/19 at 18:00 Glucose (Glutose) 15 gm Q15M PRN BUCCAL DECREASED GLUCOSE; Start 03/23/19 at 18:00 Insulin Glargine (Lantus) 45 units BID SC Last administered on 03/26/19at 10:24; Admin Dose 45 UNITS; Start 03/23/19 at 21:00 Isosorbide Mononitrate (Imdur) 30 mg DAILY PO Last administered on 03/26/19at 09:30; Admin Dose 30 MG; Start 03/24/19 at 09:00 EZETIMIBE (Zetia) 10 mg QHS PO Last administered on 03/25/19at 20:53; Admin Dose 10 MG; Start 03/24/19 at 21:00 Vancomycin HCl (Vanco Iv Per Pharmacy) VANCOMYCIN PER PHARMACY PER PROTOCOL XX ; Start 03/24/19 at 14:30 Vancomycin HCl 250 ml @ 125 mls/hr Q8H IVPB Last administered on 03/26/19at 17:13; Admin Dose 125 MLS/HR; Start 03/25/19 at 01:00 Acetaminophen/ Hydrocodone Bitart ([place] (5/325)) 1 tab Q4H PRN PO MODERATE ROB N LEVEL 4-6 Last administered on 03/26/19at 15:14; Admin Dose 1 TAB; Start 03/24/19 at 21:30 Insulin Aspart (Novolog Insulin Pen) 7 unit WITH MEALS SC ; Start 03/27/19 at 07:55 VALARIE DORAN NP March 26, 2019 19:03
--- NOTE | 2019-03-26 19:42 | CONS ---
DATE OF ADMISSION: 03/25/2019 DATE OF CONSULTATION: REASON FOR CONSULTATION: Evaluation of the left below knee amputation stump. HISTORY OF PRESENT ILLNESS: This is a patient known to me. A 64-year-old male with a history of per ipheral vascular disease status post left below knee amputation, admitted because of the stump infect ion, currently being treated with antibiotics. PAST MEDICAL HISTORY: Hypertension, hyperlipidemia, diabetes, peripheral vascular disease. PAST SURGICAL HISTORY: Left below knee amputation. ALLERGIES: NONE. SOCIAL HISTORY: No smoking, drinking or drug use. MEDICATIONS: List reviewed. PHYSICAL EXAMINATION: VITAL SIGNS: Blood pressure is 102/60, pulse is 80, respirations 18. CARDIOVASCULAR: Normal S1, S2. No murmurs, gallops or rubs. LUNGS: Clear. ABDOMEN: Soft. EXTREMITIES: Warm. Left below knee amputation stump examined. There is a 1 cm opening in the mid a spect of the stump minimal, drainage coming out. IMPRESSION: Left below knee amputation stump dehiscence. RECOMMENDATIONS: Will continue antibiotics. If the patient does not improve, may need revision of t he stump. Discussed with the patient. Dictated By: MARIE SALAZAR/DUSTY Conf#: [id number] DID#: [id number]
[2019-03-26] MEDS: EZETIMIBE 10 MG TAB PO SCH (20:09)
[2019-03-26] MEDS: ATORVASTATIN 80 MG TAB PO SCH (20:09)
[2019-03-26] MEDS: NYSTATIN 15 GM CR TOP SCH (21:00)
[2019-03-26] MEDS ORDERED: LORAZEPAM 1 MG TAB PO ONE (22:30)
[2019-03-27] VITALS (10 sets, daily range): BP systolic 116–145; BP diastolic 57–79; PULSE 64–86; RESP 19–20
[2019-03-27] MEDS: VANCOMYCIN 1 GM 250 ML IVPB SCH ×3 (01:00→16:59)
[2019-03-27] MEDS: ACCU-CHEK XX SCH (02:00)
[2019-03-27] MEDS: HYDROCODONE/APAP (5/325) TAB PO PRN ×3 (06:01→20:42)
[2019-03-27] MEDS: INSULIN ASPART [NOVOLOG] 3 ML PEN SC SCH ×7 (07:34→20:43)
[2019-03-27] MEDS: ISOSORBIDE MONONITRATE(SR)30 MG TAB PO SCH (08:08)
[2019-03-27] MEDS: FUROSEMIDE 40 MG TAB PO SCH (08:08)
[2019-03-27] MEDS: CLOPIDOGREL 75 MG TAB PO SCH (08:08)
[2019-03-27] MEDS: metFORMIN 500 MG TAB PO SCH ×2 (08:08→17:00)
[2019-03-27] MEDS: SENNA TAB PO SCH (08:09)
[2019-03-27] MEDS: ASPIRIN (EC) 81 MG TAB PO SCH (08:09)
[2019-03-27] MEDS: AMLODIPINE 2.5 MG TAB PO SCH (08:09)
[2019-03-27] MEDS: NYSTATIN 15 GM CR TOP SCH ×4 (08:10→20:50)
[2019-03-27] MEDS: ENOXAPARIN 40 MG/0.4 ML SYG SC SCH (08:30)
[2019-03-27] MEDS: INSULIN GLARGINE [LANTus] (100 UNITS/ML) SYG SC SCH ×2 (08:30→20:49)
[2019-03-27] MEDS: LOSARTAN 50 MG TAB PO SCH (11:55)
--- NOTE | 2019-03-27 12:15 | CONS ---
Assessment/Plan Assessment/Plan Hospital Course (Demo Recall) Impression: Chest pain with recurrence, due to his chronic angina secondary to chronic total occlusions. Coronary artery with history of multiple PCI and bypass surgery Ischemic cardiomyopathy Hypertension Severe peripheral vascular disease status post left BKA multiple revascularization of lower extremities, and left bka stump wound Diabetes Dyslipidemia Recommendations: Increase imdur to 60 mg daily Continue with the losartan and Coreg. Continue with high-dose statin and ezetimibe Continue with Plavix Consultation Date/Type/Reason Admit Date/Time March 25, 2019 at 10:17 Initial Consult Date 03/24/19 Type of Consult Cardiology Requesting Provider: NADER PLAZA Date/Time of Note DATE: 03/27/19 TIME: 12:12 24 HR Interval Summary Free Text/Dictation Yesterday had chest pain, none today. Complains of pain at stump. Exam/Review of Systems Vital Signs Vitals Vital Signs Date Temp Pulse Resp B/P (MAP) Pulse Ox O2 O2 Flow FiO2 Time Delivery Rate 03/27/19 98.3 68 20 116/60 96 Room Air 11:24 (78) 03/27/19 2.0 09:00 03/26/19 27 19:50 Intake and Output 03/26/19 03/26/19 03/27/19 1515:00 23:00 07:00 IntakeIntake Total 250 ml 1350 ml 950 ml OutputOutput Total 1280 ml 750 ml BalanceBalance 250 ml 70 ml 200 ml Exam Constitutional: alert, oriented, well developed Psych: no complaints, nl mood/affect Head: normocephalic, atraumatic Eyes: EOMI, nl lids ENMT: nl external ears & nose Neck: No jvd, No bruits Respiratory: clear to auscultation, normal air movement Cardiovascular: regular rate and rhythm; No murmurs/extra sounds Gastrointestinal: soft, non-tender Musculoskeletal: other (Left BKA) Extremities: No edema Neurological: nl mental status, nl speech Skin: nl turgor Labs Result Diagram: 03/25/19 0602 03/27/19 0540 Results 24hrs Laboratory Tests Test 03/26/19 13:02 03/26/19 13:33 03/26/19 16:16 03/26/19 17:06 Bedside Glucose 260 H 259 H 148 126 Test 03/26/19 18:02 03/26/19 18:07 03/26/19 18:13 03/26/19 18:48 Bedside Glucose 76 79 92 124 Test 03/26/19 19:34 03/26/19 20:16 03/27/19 05:40 03/27/19 07:32 Bedside Glucose 110 115 119 Blood Urea Nitrogen 16 Creatinine 0.86 Test 03/27/19 09:56 03/27/19 11:05 Bedside Glucose 275 H 202 Medications Medications Current Medications Nitroglycerin (Nitroglycerin (Sl Tab) 0.4 Mg) 1 tab Q5M UP TO 3 DOSES PRN SL .CHEST PAIN Last administered on 03/26/19 20:13; Admin Dose 1 TAB; Start 03/23/19 at 12:30 IV Flush (NS 3 ml) 3 ml PER PROTOCOL IV ; Start 03/23/19 at 17:00 Ondansetron HCl (Zofran Inj) 4 mg Q6H PRN IV NAUSEA/VOMITING; Start 03/23/19 at 17:00 Acetaminophen (Tylenol Tab) 650 mg Q6H PRN PO .PAIN 1-3 OR TEMP; Start 03/23/19 at 17:00 Docusate Sodium (Colace) 100 mg Q12H PRN PO .CONSTIPATION Last administered on 03/25/19 05:28; Admin Dose 100 MG; Start 03/23/19 at 17:00 Zolpidem Tartrate (Ambien) 5 mg QHS PRN PO .INSOMNIA Last administered on 03/26/19 21:07; Admin Dose 5 MG; Start 03/23/19 at 17:00 Enoxaparin Sodium (Lovenox) 40 mg DAILY SC Last administered on 03/27/19 08:30 ; Admin Dose 40 MG; Start 03/24/19 at 09:00 Amlodipine Besylate (Norvasc) 2.5 mg DAILY PO Last administered on 03/27/19 08:09; Admin Dose 2.5 MG; Start 03/24/19 at 09:00 Aspirin (Halfprin) 81 mg DAILY PO Last administered on 03/27/19 08:09; Admin Dose 81 MG; Start 03/24/19 at 09:00 Atorvastatin Calcium (Lipitor) 80 mg QHS PO Last administered on 03/26/19 20:09; Admin Dose 80 MG; Start 03/23/19 at 21:00 Carvedilol (Coreg) 25 mg BID PO Last administered on 03/27/19 08:09; Admin Dose 25 MG; Start 03/23/19 at 21:00 Clopidogrel Bisulfate (plaVIX) 75 mg DAILY PO Last administered on 03/27/19 08:08; Admin Dose 75 MG; Start 03/24/19 at 09:00 Furosemide (Lasix) 40 mg DAILY PO Last administered on 03/27/19 08:08; Admin Dose 40 MG; Start 03/24/19 at 09:00 Lorazepam (Ativan) 0.5 mg HS PRN PO ANXIETY Last administered on 03/26/19 10:11; Admin Dose 0.5 MG; Start 03/23/19 at 17:00 Losartan Potassium (Cozaar) 100 mg DAILY PO Last administered on 03/27/19 11:55; Admin Dose 100 MG; Start 03/24/19 at 09:00 Metformin HCl (Glucophage) 1,000 mg WITH BREAKFAST DINNE PO Last administered on 03/27/19 08:08; Admin Dose 1,000 MG; Start 03/23/19 at 18:00 Senna (Senokot) 1 tab DAILY PO Last administered on 03/27/19 08:09; Admin Dose 1 TAB; Start 03/24/19 at 09:00 Diagnostic Test (Pha) (Accu-Chek) 1 ea 02 XX Last administered on 03/24/19 01:55; Admin Dose 1 EA; Start 03/24/19 at 02:00 Insulin Aspart (Novolog Insulin Pen) NOVOLOG *MILD* ALGORITHM WITH MEALS BEDTIME SC Last administered on 03/27/19 11:10; Admin Dose 2 UNIT; Start 03/23/19 at 18:00 Miscellaneous Information 1 ea NOTE XX ; Start 03/23/19 at 17:30 Glucose (Glutose) 15 gm Q15M PRN PO DECREASED GLUCOSE; Start 03/23/19 at 17:30 Glucose (Glutose) 22.5 gm Q15M PRN PO DECREASED GLUCOSE; Start 03/23/19 at 17:30 Dextrose (D50w Syringe) 25 ml Q15M PRN IV DECREASED GLUCOSE; Start 03/23/19 at 17:30 Dextrose (D50w Syringe) 50 ml Q15M PRN IV DECREASED GLUCOSE; Start 03/23/19 at 17:30 Glucagon (Glucagen) 1 mg Q15M PRN IM DECREASED GLUCOSE; Start 03/23/19 at 17:30 Glucose (Glutose) 15 gm Q15M PRN BUCCAL DECREASED GLUCOSE; Start 03/23/19 at 17:30 Miscellaneous Information 1 ea NOTE XX ; Start 03/23/19 at 18:00 Glucose (Glutose) 15 gm Q15M PRN PO DECREASED GLUCOSE; Start 03/23/19 at 18:00 Glucose (Glutose) 22.5 gm Q15M PRN PO DECREASED GLUCOSE; Start 03/23/19 at 18:00 Dextrose (D50w Syringe) 25 ml Q15M PRN IV DECREASED GLUCOSE; Start 03/23/19 at 18:00 Dextrose (D50w Syringe) 50 ml Q15M PRN IV DECREASED GLUCOSE; Start 03/23/19 at 18:00 Glucagon (Glucagen) 1 mg Q15M PRN IM DECREASED GLUCOSE; Start 03/23/19 at 18:00 Glucose (Glutose) 15 gm Q15M PRN BUCCAL DECREASED GLUCOSE; Start 03/23/19 at 18:00 Insulin Glargine (Lantus) 45 units BID SC Last administered on 03/27/19at 08:30; Admin Dose 45 UNITS; Start 03/23/19 at 21:00 Isosorbide Mononitrate (Imdur) 30 mg DAILY PO Last administered on 03/27/19at 08:08; Admin Dose 30 MG; Start 03/24/19 at 09:00 EZETIMIBE (Zetia) 10 mg QHS PO Last administered on 03/26/19at 20:09; Admin Dose 10 MG; Start 03/24/19 at 21:00 Vancomycin HCl (Vanco Iv Per Pharmacy) VANCOMYCIN PER PHARMACY PER PROTOCOL XX ; Start 03/24/19 at 14:30 Vancomycin HCl 250 ml @ 125 mls/hr Q8H IVPB Last administered on 03/27/19at 08:38; Admin Dose 125 MLS/HR; Start 03/25/19 at 01:00 Acetaminophen/ Hydrocodone Bitart ([place] (5/325)) 1 tab Q4H PRN PO MODERATE PAIN LEVEL 4-6 Last administered on 03/27/19at 11:04; Admin Dose 1 TAB; Start 03/24/19 at 21:30 Insulin Aspart (Novolog Insulin Pen) 7 unit WITH MEALS SC Last administered on 03/27/19at 11:10; Admin Dose 7 UNIT; Start 03/27/19 at 07:55 Nystatin (Nystatin Cr) 1 applic TID TOP Last administered on 03/27/19at 08:10; Admin Dose 1 APPLIC; Start 03/26/19 at 21:00 COOPER DANIELLE March 27, 2019 12:15
--- NOTE | 2019-03-27 13:46 | CONS ---
Assessment/Plan Assessment/Plan Hospital Course (Demo Recall) ID PROGRESS NOTE CURRENT ABX: DAY #=> Vanco IV 03/25/19 0602 03/27/19 0540 24H INTERVAL SUMMARY * Doing well sitting up in bed watching TV w/daughter present to assit with care and Iranian interpretation * A/A/O -- no fevers, VSS, NAD, voiding well into urinal * Thanks me for Nystatin anti-fungal cream -- tells me he likes it -- Rx for C/O pruritic manohar-anal area -- suspect yeast IMAGING * 03/23/19 CXR: 1. No acute pulmonary abnormality. * 03/24/[address]: IMPRESSION: * 1. No evidence of acute intracranial hemorrhage, infarcts, or acute intracranial pathology. * 2. Mild chronic microvascular ischemic disease and diffuse volume loss. * 3. Severe atherosclerotic vascular disease MICRO/OTHER * 03/24/19 STUMP WOUND: WOUND CULTURE Final Organism 1 STAPHYLOCOCCUS AUREUS QUANTITY 1+ S AUREUS M.I.C. RX --------- --- CEFAZOLIN S CIPROFLOXACIN <=0.5 S CLINDAMYCIN <=0.25 S DOXYCYCLINE S ERYTHROMYCIN <=0.25 S LEVOFLOXACIN 0.25 S OXACILLIN 0.5 S PENICILLIN-G >=0.5 R RIFAMPIN <=0.5 S VANCOMYCIN 1 S TRIMETHOPRIM/SULFAMETHOXAZOLE <=10 S PHYSICAL EXAMINATION: GENERAL: VSS, NAD, HEENT: AT, NC, NECK: WNL CHEST: Equal chest rise bilaterally without dyspnea on observation ABD: Soft, ND EXTREMITIES: Warm, dry, There is a 1 cm opening in the mid aspect of the stump minimal, drainage coming out. SKIN: No rash, no diaphoresis ID ASSESSMENT 64 yo M admit with: SIRS w/low grade temps and mild leukocytosis => Improved Acute left stump cellulitis with 1cm wound opening growing Staphylococcus aureus. 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 Check MRSA nares -- may be able to de-escalate to Ancef if (-)MRSA 2. Started Nystatin cream for pruritic perineum rash 3. Watch renal fx on Vanco IV -- Stable today . Consultation Date/Type/Reason Admit Date/Time March 25, 2019 at 10:17 Initial Consult Date 03/24/19 Requesting Provider: NADER PLAZA Date/Time of Note DATE: 03/27/19 TIME: 13:43 Exam/Review of Systems Exam Vitals Vital Signs Date Temp Pulse Resp B/P (MAP) Pulse Ox O2 O2 Flow FiO2 Time Delivery Rate 03/27/19 73 12:21 03/27/19 98.3 20 116/60 96 Room Air 11:24 (78) 03/27/19 2.0 09:00 03/26/19 27 19:50 Intake and Output 03/26/19 03/26/19 03/27/19 1515:00 23:00 07:00 IntakeIntake Total 250 ml 1350 ml 950 ml OutputOutput Total 1280 ml 750 ml BalanceBalance 250 ml 70 ml 200 ml Results Result Diagram: 03/25/19 0602 03/27/19 0540 Results 24hrs Laboratory Tests Test 03/26/19 16:16 03/26/19 17:06 03/26/19 18:02 03/26/19 18:07 Bedside Glucose 148 126 76 79 Test 03/26/19 18:13 03/26/19 18:48 03/26/19 19:34 03/26/19 20:16 Bedside Glucose 92 124 110 115 Test 03/27/19 05:40 03/27/19 07:32 03/27/19 09:56 03/27/19 11:05 Blood Urea Nitrogen 16 Creatinine 0.86 Bedside Glucose 119 275 H 202 Test 03/27/19 13:29 Bedside Glucose 118 Medications Medication Current Medications Nitroglycerin (Nitroglycerin (Sl Tab) 0.4 Mg) 1 tab Q5M UP TO 3 DOSES PRN SL .CHEST PAIN Last administered on 5/25/19at 20:13; Admin Dose 1 TAB; Start 03/23/19 at 12:30 IV Flush (NS 3 ml) 3 ml PER PROTOCOL IV ; Start 03/23/19 at 17:00 Ondansetron HCl (Zofran Inj) 4 mg Q6H PRN IV NAUSEA/VOMITING; Start 03/23/19 at 17:00 Acetaminophen (Tylenol Tab) 650 mg Q6H PRN PO .PAIN 1-3 OR TEMP; Start 03/23/19 at 17:00 Docusate Sodium (Colace) 100 mg Q12H PRN PO .CONSTIPATION Last administered on 03/25/19 05:28; Admin Dose 100 MG; Start 03/23/19 at 17:00 Zolpidem Tartrate (Ambien) 5 mg QHS PRN PO .INSOMNIA Last administered on 03/26/19 21:07; Admin Dose 5 MG; Start 03/23/19 at 17:00 Enoxaparin Sodium (Lovenox) 40 mg DAILY SC Last administered on 03/27/19 08:30; Admin Dose 40 MG; Start 03/24/19 at 09:00 Amlodipine Besylate (Norvasc) 2.5 mg DAILY PO Last administered on 03/27/19 08:09; Admin Dose 2.5 MG; Start 03/24/19 at 09:00 Aspirin (Halfprin) 81 mg DAILY PO Last administered on 03/27/19 08:09; Admin Dose 81 MG; Start 03/24/19 at 09:00 Atorvastatin Calcium (Lipitor) 80 mg QHS PO Last administered on 03/26/19 20:09; Admin Dose 80 MG; Start 03/23/19 at 21:00 Carvedilol (Coreg) 25 mg BID PO Last administered on 03/27/19 08:09; Admin Dose 25 MG; Start 03/23/19 at 21:00 Clopidogrel Bisulfate (plaVIX) 75 mg DAILY PO Last administered on 03/27/19 08:08; Admin Dose 75 MG; Start 03/24/19 at 09:00 Furosemide (Lasix) 40 mg DAILY PO Last administered on 03/27/19 08:08; Admin Dose 40 MG; Start 03/24/19 at 09:00 Lorazepam (Ativan) 0.5 mg HS PRN PO ANXIETY Last administered on 03/26/19 10:11; Admin Dose 0.5 MG; Start 03/23/19 at 17:00 Losartan Potassium (Cozaar) 100 mg DAILY PO Last administered on 03/27/19 11:55; Admin Dose 100 MG; Start 03/24/19 at 09:00 Metformin HCl (Glucophage) 1,000 mg WITH BREAKFAST DINNE PO Last administered on 03/27/19 08:08; Admin Dose 1,000 MG; Start 03/23/19 at 18:00 Senna (Senokot) 1 tab DAILY PO Last administered on 03/27/19 08:09; Admin Dose 1 TAB; Start 03/24/19 at 09:00 Diagnostic Test (Pha) (Accu-Chek) 1 ea 02 XX Last administered on 03/24/19 01:55; Admin Dose 1 EA; Start 03/24/19 at 02:00 Insulin Aspart (Novolog Insulin Pen) NOVOLOG *MILD* ALGORITHM WITH MEALS BEDTIME SC Last administered on 03/27/19 11:10; Admin Dose 2 UNIT; Start 03/23/19 at 18:00 Miscellaneous Information 1 ea NOTE XX ; Start 03/23/19 at 17:30 Glucose (Glutose) 15 gm Q15M PRN PO DECREASED GLUCOSE; Start 03/23/19 at 17:30 Glucose (Glutose) 22.5 gm Q15M PRN PO DECREASED GLUCOSE; Start 03/23/19 at 17:30 Dextrose (D50w Syringe) 25 ml Q15M PRN IV DECREASED GLUCOSE; Start 03/23/19 at 17:30 Dextrose (D50w Syringe) 50 ml Q15M PRN IV DECREASED GLUCOSE; Start 03/23/19 at 17:30 Glucagon (Glucagen) 1 mg Q15M PRN IM DECREASED GLUCOSE; Start 03/23/19 at 17:30 Glucose (Glutose) 15 gm Q15M PRN BUCCAL DECREASED GLUCOSE; Start 03/23/19 at 17:30 Miscellaneous Information 1 ea NOTE XX ; Start 03/23/19 at 18:00 Glucose (Glutose) 15 gm Q15M PRN PO DECREASED GLUCOSE; Start 03/23/19 at 18:00 Glucose (Glutose) 22.5 gm Q15M PRN PO DECREASED GLUCOSE; Start 03/23/19 at 18:00 Dextrose (D50w Syringe) 25 ml Q15M PRN IV DECREASED GLUCOSE; Start 03/23/19 at 18:00 Dextrose (D50w Syringe) 50 ml Q15M PRN IV DECREASED GLUCOSE; Start 03/23/19 at 18:00 Glucagon (Glucagen) 1 mg Q15M PRN IM DECREASED GLUCOSE; Start 03/23/19 at 18:00 Glucose (Glutose) 15 gm Q15M PRN BUCCAL DECREASED GLUCOSE; Start 03/23/19 at 18:00 Insulin Glargine (Lantus) 45 units BID SC Last administered on 03/27/19at 08:30; Admin Dose 45 UNITS; Start 03/23/19 at 21:00 EZETIMIBE (Zetia) 10 mg QHS PO Last administered on 03/26/19at 20:09; Admin Dose 10 MG; Start 03/24/19 at 21:00 Vancomycin HCl (Vanco Iv Per Pharmacy) VANCOMYCIN PER PHARMACY PER PROTOCOL XX ; Start 03/24/19 at 14:30 Vancomycin HCl 250 ml @ 125 mls/hr Q8H IVPB Last administered on 03/27/19at 08:38; Admin Dose 125 MLS/HR; Start 03/25/19 at 01:00 Acetaminophen/ Hydrocodone Bitart ([place] (5/325)) 1 tab Q4H PRN PO MODERATE PAIN LEVEL 4-6 Last administered on 03/27/19at 11:04; Admin Dose 1 TAB; Start 03/24/19 at 21:30 Insulin Aspart (Novolog Insulin Pen) 7 unit WITH MEALS SC Last administered on 03/27/19at 11:10; Admin Dose 7 UNIT; Start 03/27/19 at 07:55 Nystatin (Nystatin Cr) 1 applic TID TOP Last administered on 03/27/19at 08:10; Admin Dose 1 APPLIC; Start 03/26/19 at 21:00 Isosorbide Mononitrate (Imdur) 60 mg DAILY PO ; Start 03/28/19 at 09:00 VALARIE DORAN NP March 27, 2019 13:46
[2019-03-27] MEDS ORDERED: LORAZEPAM 1 MG TAB PO ONE (15:00)
--- NOTE | 2019-03-27 18:35 | PN ---
Date/Time of Note Date/Time of Note DATE: 03/27/19 TIME: 18:34 Assessment/Plan VTE Prophylaxis Risk score (from Nsg)>0 risk: 5 Pharmacological prophylaxis: LMWH Lines/Catheters IV Catheter Type (from Nrsg): Saline Lock Assessment/Plan Hospital Course 1. 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 Borges appreciated Continue cardiac meds 2. History of coronary disease status post CABG Continue cardiac meds 3. History of peripheral vascular disease status post left BKA over a year ago at outside hospital Patient is reporting pain at the left BKA stump site with ulceration, bleeding ulcer was noted Continue wound care Continue IV antibiotics with vancomycin Wound culture shows staph aureus ID consultation appreciated Consultation with Dr. Fernandez appreciated, recommendation is to continue antibiotics and if the patient does not improve, may need revision of the stump Of note patient had left BKA over a year ago at [facility] 4. CHF-compensated 5. Hypertension-now stable Continue meds 6. Diabetes Continue schedule insulin, sliding scale 7. Anxiety Ativan as needed Prophylaxis: Lovenox DC planning: Continue IV antibiotics, follow-up on ID and vascular recs Result Diagram: 03/25/19 0602 03/27/19 0540 Results 24hrs Laboratory Tests Test 03/26/19 18:48 03/26/19 19:34 03/26/19 20:16 03/27/19 05:40 Bedside Glucose 124 110 115 Blood Urea Nitrogen 16 Creatinine 0.86 Test 03/27/19 07:32 03/27/19 09:56 03/27/19 11:05 03/27/19 13:29 Bedside Glucose 119 275 H 202 118 Test 03/27/19 16:58 Bedside Glucose 176 Subjective 24 Hr Interval Summary Psychological: anxiety Exam/Review of Systems Exam Vitals Vital Signs Date Temp Pulse Resp B/P (MAP) Pulse Ox O2 O2 Flow FiO2 Time Delivery Rate 03/27/19 64 16:51 03/27/19 98.2 20 121/59 96 Room Air 15:31 (79) 03/27/19 2.0 09:00 03/26/19 27 19:50 Intake and Output 03/26/19 03/26/19 03/27/19 1515:00 23:00 07:00 IntakeIntake Total 250 ml 1350 ml 950 ml OutputOutput Total 1280 ml 750 ml BalanceBalance 250 ml 70 ml 200 ml Constitutional: alert, oriented Respiratory: clear to auscultation Cardiovascular: regular rate and rhythm Gastrointestinal: soft; No distended Musculoskeletal: No nl extremities to inspection Results Results 24hrs Laboratory Tests Test 03/26/19 18:48 03/26/19 19:34 03/26/19 20:16 03/27/19 05:40 Bedside Glucose 124 110 115 Blood Urea Nitrogen 16 Creatinine 0.86 Test 03/27/19 07:32 03/27/19 09:56 03/27/19 11:05 03/27/19 13:29 Bedside Glucose 119 275 H 202 118 Test 03/27/19 16:58 Bedside Glucose 176 Medications Medication Current Medications Nitroglycerin (Nitroglycerin (Sl Tab) 0.4 Mg) 1 tab Q5M UP TO 3 DOSES PRN SL .CHEST PAIN Last administered on 03/26/19at 20:13; Admin Dose 1 TAB; Start 03/23/19 at 12:30 IV Flush (NS 3 ml) 3 ml PER PROTOCOL IV ; Start 03/23/19 at 17:00 Ondansetron HCl (Zofran Inj) 4 mg Q6H PRN IV NAUSEA/VOMITING; Start 03/23/19 at 17:00 Acetaminophen (Tylenol Tab) 650 mg Q6H PRN PO .PAIN 1-3 OR TEMP; Start 03/23/19 at 17:00 Docusate Sodium (Colace) 100 mg Q12H PRN PO .CONSTIPATION Last administered on 03/25/19at 05:28; Admin Dose 100 MG; Start 03/23/19 at 17:00 Zolpidem Tartrate (Ambien) 5 mg QHS PRN PO .INSOMNIA Last administered on at 21:07; Admin Dose 5 MG; Start 03/23/19 at 17:00 Enoxaparin Sodium (Lovenox) 40 mg DAILY SC Last administered on 03/27/19at 08:30; Admin Dose 40 MG; Start 03/24/19 at 09:00 Amlodipine Besylate (Norvasc) 2.5 mg DAILY PO Last administered on 03/27/19at 08:09; Admin Dose 2.5 MG; Start 03/24/19 at 09:00 Aspirin (Halfprin) 81 mg DAILY PO Last administered on 03/27/19 08:09; Admin Dose 81 MG; Start 03/24/19 at 09:00 Atorvastatin Calcium (Lipitor) 80 mg QHS PO Last administered on 03/26/19 20:09; Admin Dose 80 MG; Start 03/23/19 at 21:00 Carvedilol (Coreg) 25 mg BID PO Last administered on 03/27/19 08:09; Admin Dose 25 MG; Start 03/23/19 at 21:00 Clopidogrel Bisulfate (plaVIX) 75 mg DAILY PO Last administered on 03/27/19 08:08; Admin Dose 75 MG; Start 03/24/19 at 09:00 Furosemide (Lasix) 40 mg DAILY PO Last administered on 03/27/19 08:08; Admin Dose 40 MG; Start 03/24/19 at 09:00 Losartan Potassium (Cozaar) 100 mg DAILY PO Last administered on 03/27/19 11:55; Admin Dose 100 MG; Start 03/24/19 at 09:00 Metformin HCl (Glucophage) 1,000 mg WITH BREAKFAST DINNE PO Last administered on 03/27/19 17:00; Admin Dose 1,000 MG; Start 03/23/19 at 18:00 Senna (Senokot) 1 tab DAILY PO Last administered on 03/27/19 08:09; Admin Dose 1 TAB; Start 03/24/19 at 09:00 Diagnostic Test (Pha) (Accu-Chek) 1 ea 02 XX Last administered on 03/24/19 01:55; Admin Dose 1 EA; Start 03/24/19 at 02:00 Insulin Aspart (Novolog Insulin Pen) NOVOLOG *MILD* ALGORITHM WITH MEALS BEDTIME SC Last administered on 03/27/19 11:10; Admin Dose 2 UNIT; Start 03/23/19 at 18:00 Miscellaneous Information 1 ea NOTE XX ; Start 03/23/19 at 17:30 Glucose (Glutose) 15 gm Q15M PRN PO DECREASED GLUCOSE; Start 03/23/19 at 17:30 Glucose (Glutose) 22.5 gm Q15M PRN PO DECREASED GLUCOSE; Start 03/23/19 at 17:30 Dextrose (D50w Syringe) 25 ml Q15M PRN IV DECREASED GLUCOSE; Start 03/23/19 at 17:30 Dextrose (D50w Syringe) 50 ml Q15M PRN IV DECREASED GLUCOSE; Start 03/23/19 at 17:30 Glucagon (Glucagen) 1 mg Q15M PRN IM DECREASED GLUCOSE; Start 03/23/19 at 17:30 Glucose (Glutose) 15 gm Q15M PRN BUCCAL DECREASED GLUCOSE; Start 03/23/19 at 17:30 Miscellaneous Information 1 ea NOTE XX ; Start 03/23/19 at 18:00 Glucose (Glutose) 15 gm Q15M PRN PO DECREASED GLUCOSE; Start 03/23/19 at 18:00 Glucose (Glutose) 22.5 gm Q15M PRN PO DECREASED GLUCOSE; Start 03/23/19 at 18:00 Dextrose (D50w Syringe) 25 ml Q15M PRN IV DECREASED GLUCOSE; Start 03/23/19 at 18:00 Dextrose (D50w Syringe) 50 ml Q15M PRN IV DECREASED GLUCOSE; Start 03/23/19 at 18:00 Glucagon (Glucagen) 1 mg Q15M PRN IM DECREASED GLUCOSE; Start 03/23/19 at 18:00 Glucose (Glutose) 15 gm Q15M PRN BUCCAL DECREASED GLUCOSE; Start 03/23/19 at 18:00 Insulin Glargine (Lantus) 45 units BID SC Last administered on 03/27/19at 08:30; Admin Dose 45 UNITS; Start 03/23/19 at 21:00 EZETIMIBE (Zetia) 10 mg QHS PO Last administered on 03/26/19at 20:09; Admin Dose 10 MG; Start 03/24/19 at 21:00 Vancomycin HCl (Vanco Iv Per Pharmacy) VANCOMYCIN PER PHARMACY PER PROTOCOL XX ; Start 03/24/19 at 14:30 Vancomycin HCl 250 ml @ 125 mls/hr Q8H IVPB Last administered on 03/27/19at 16:59; Admin Dose 125 MLS/HR; Start 03/25/19 at 01:00 Acetaminophen/ Hydrocodone Bitart ([place] (5/325)) 1 tab Q4H PRN PO MODERATE PAIN LEVEL 4-6 Last administered on 03/27/19at 11:04; Admin Dose 1 TAB; Start 03/24/19 at 21:30 Insulin Aspart (Novolog Insulin Pen) 7 unit WITH MEALS SC Last administered on 03/27/19at 11:10; Admin Dose 7 UNIT; Start 03/27/19 at 07:55 Nystatin (Nystatin Cr) 1 applic TID TOP Last administered on 03/27/19at 16:00; Admin Dose 1 APPLIC; Start 03/26/19 at 21:00 Isosorbide Mononitrate (Imdur) 60 mg DAILY PO ; Start 03/28/19 at 09:00 Miscellaneous Information (*Rx Drug Level Order Reminder*) VANCO TR LEVEL PRIOR... 0800 ONCE XX ; Start 03/28/19 at 08:00; Stop 03/28/19 at 08:01 Lorazepam (Ativan) 1 mg Q8H PRN PO anxiety; Start 03/27/19 at 15:00 NADER PLAZA March 27, 2019 18:35
[2019-03-27] MEDS: ATORVASTATIN 80 MG TAB PO SCH (20:42)
[2019-03-27] MEDS: EZETIMIBE 10 MG TAB PO SCH (20:42)
[2019-03-27] MEDS: LORAZEPAM 1 MG TAB PO PRN (21:33)
[2019-03-28] VITALS (10 sets, daily range): BP systolic 114–154; BP diastolic 59–74; PULSE 65–85; RESP 18–20
[2019-03-28] MEDS: VANCOMYCIN 1 GM 250 ML IVPB SCH ×2 (00:52→09:00)
[2019-03-28] MEDS: ACCU-CHEK XX SCH (02:54)
[2019-03-28] MEDS: metFORMIN 500 MG TAB PO SCH ×2 (07:48→17:22)
[2019-03-28] MEDS: INSULIN GLARGINE [LANTus] (100 UNITS/ML) SYG SC SCH ×2 (07:49→21:04)
[2019-03-28] MEDS: INSULIN ASPART [NOVOLOG] 3 ML PEN SC SCH ×7 (07:49→20:59)
[2019-03-28] MEDS: LOSARTAN 50 MG TAB PO SCH (08:33)
[2019-03-28] MEDS: CLOPIDOGREL 75 MG TAB PO SCH (08:33)
[2019-03-28] MEDS: ASPIRIN (EC) 81 MG TAB PO SCH (08:33)
[2019-03-28] MEDS: SENNA TAB PO SCH (08:34)
[2019-03-28] MEDS: ISOSORBIDE MONONITRATE(SR)60 MG TAB PO SCH (08:34)
[2019-03-28] MEDS: FUROSEMIDE 40 MG TAB PO SCH (08:34)
[2019-03-28] MEDS: AMLODIPINE 2.5 MG TAB PO SCH (08:34)
[2019-03-28] MEDS: NYSTATIN 15 GM CR TOP SCH ×3 (08:39→21:04)
[2019-03-28] MEDS: ENOXAPARIN 40 MG/0.4 ML SYG SC SCH (08:41)
[2019-03-28] MEDS: HYDROCODONE/APAP (5/325) TAB PO PRN (11:10)
[2019-03-28] MEDS: NITROGLYCERIN (SL) 0.4 MG TAB SL PRN ×2 (11:14→11:19)
[2019-03-28] MEDS ORDERED: NITROGLYCERIN (SL) 0.4 MG TAB SL PRN (11:30)
--- NOTE | 2019-03-28 13:17 | CONS ---
Assessment/Plan Assessment/Plan Hospital Course (Demo Recall) ID PROGRESS NOTE CURRENT ABX: DAY #=> Vanco IV 24H INTERVAL SUMMARY * Clincally status quo -- feeling well, no complaints * A/A/O -- no fevers, VSS, NAD, voiding well into urinal * Thanks me for Nystatin anti-fungal cream -- tells me he likes it -- Rx for C/O pruritic manohar-anal area -- suspect yeast IMAGING * 03/23/19 CXR: 1. No acute pulmonary abnormality. * 03/24/[address]: IMPRESSION: * 1. No evidence of acute intracranial hemorrhage, infarcts, or acute intracranial pathology. * 2. Mild chronic microvascular ischemic disease and diffuse volume loss. * 3. Severe atherosclerotic vascular disease MICRO/OTHER * 03/24/19 STUMP WOUND: WOUND CULTURE Final Organism 1 STAPHYLOCOCCUS AUREUS QUANTITY 1+ S AUREUS M.I.C. RX --------- --- CEFAZOLIN S CIPROFLOXACIN <=0.5 S CLINDAMYCIN <=0.25 S DOXYCYCLINE S ERYTHROMYCIN <=0.25 S LEVOFLOXACIN 0.25 S OXACILLIN 0.5 S PENICILLIN-G >=0.5 R RIFAMPIN <=0.5 S VANCOMYCIN 1 S TRIMETHOPRIM/SULFAMETHOXAZOLE <=10 S PHYSICAL EXAMINATION: GENERAL: VSS, NAD, HEENT: AT, NC, NECK: WNL CHEST: Equal chest rise bilaterally without dyspnea on observation ABD: Soft, ND EXTREMITIES: Warm, dry, There is a 1 cm opening in the mid aspect of the stump minimal, drainage coming out. SKIN: No rash, no diaphoresis ID ASSESSMENT 64 yo M admit with: SIRS w/low grade temps and mild leukocytosis => Improved Acute left stump cellulitis with 1cm wound opening growing Staphylococcus au reus. 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 Check MRSA nares -- may be able to de-escalate to Ancef if (-)MRSA * Anticipate DC home on PO Switch to Quinolone vs Augmentin x 5-7 days when cleared by primary to OP f/u 2. Started Nystatin cream for pruritic perineum rash -- patient endorses improvement in pruritic groin rash 3. Watch renal fx on Vanco IV -- Stable today . Consultation Date/Type/Reason Admit Date/Time March 25, 2019 at 10:17 Initial Consult Date 03/24/19 Requesting Provider: NADER PLAZA Date/Time of Note DATE: 03/28/19 TIME: 13:14 Exam/Review of Systems Exam Vitals Vital Signs Date Temp Pulse Resp B/P (MAP) Pulse Ox O2 O2 Flow FiO2 Time Delivery Rate 03/28/19 71 12:00 03/28/19 98.6 18 130/63 98 Room Air 11:05 (85) 03/28/19 2.0 09:00 03/28/19 27 02:18 Intake and Output 03/27/19 03/27/19 03/28/19 1515:00 23:00 07:00 IntakeIntake Total 250 ml 1000 ml 850 ml OutputOutput Total 950 ml 850 ml BalanceBalance 250 ml 50 ml 0 ml Results Result Diagram: 03/25/19 0602 03/28/19 0808 Results 24hrs Laboratory Tests Test 03/27/19 13:29 03/27/19 16:58 03/27/19 20:40 03/28/19 02:49 Bedside Glucose 118 176 191 83 Test 03/28/19 06:05 03/28/19 07:47 03/28/19 08:08 03/28/19 08:31 Bedside Glucose 102 150 189 Blood Urea Nitrogen 17 Creatinine 0.82 Vancomycin Level 24.1 *H Trough Test 03/28/19 11:12 Bedside Glucose 175 Medications Medication Current Medications IV Flush (NS 3 ml) 3 ml PER PROTOCOL IV ; Start 03/23/19 at 17:00 Ondansetron HCl (Zofran Inj) 4 mg Q6H PRN IV NAUSEA/VOMITING; Start 03/23/19 at 17:00 Acetaminophen (Tylenol Tab) 650 mg Q6H PRN PO .PAIN 1-3 OR TEMP; Start 03/23/19 at 17:00 Docusate Sodium (Colace) 100 mg Q12H PRN PO .CONSTIPATION Last administered on 03/25/19 05:28; Admin Dose 100 MG; Start 03/23/19 at 17:00 Zolpidem Tartrate (Ambien) 5 mg QHS PRN PO .INSOMNIA Last administered on 03/26/19 21:07; Admin Dose 5 MG; Start 03/23/19 at 17:00 Enoxaparin Sodium (Lovenox) 40 mg DAILY SC Last administered on 03/28/19 08:41; Admin Dose 40 MG; Start 03/24/19 at 09:00 Amlodipine Besylate (Norvasc) 2.5 mg DAILY PO Last administered on 03/28/19 08:34; Admin Dose 2.5 MG; Start 03/24/19 at 09:00 Aspirin (Halfprin) 81 mg DAILY PO Last administered on 03/28/19 08:33; Admin Dose 81 MG; Start 03/24/19 at 09:00 Atorvastatin Calcium (Lipitor) 80 mg QHS PO Last administered on 03/27/19 20:42; Admin Dose 80 MG; Start 03/23/19 at 21:00 Carvedilol (Coreg) 25 mg BID PO Last administered on 03/28/19 08:33; Admin Dose 25 MG; Start 03/23/19 at 21:00 Clopidogrel Bisulfate (plaVIX) 75 mg DAILY PO Last administered on 03/28/19 08:33; Admin Dose 75 MG; Start 03/24/19 at 09:00 Furosemide (Lasix) 40 mg DAILY PO Last administered on 03/28/19 08:34; Admin Dose 40 MG; Start 03/24/19 at 09:00 Losartan Potassium (Cozaar) 100 mg DAILY PO Last administered on 03/28/19 08:33; Admin Dose 100 MG; Start 03/24/19 at 09:00 Metformin HCl (Glucophage) 1,000 mg WITH BREAKFAST DINNE PO Last administered on 03/28/19 07:48; Admin Dose 1,000 MG; Start 03/23/19 at 18:00 Senna (Senokot) 1 tab DAILY PO Last administered on 03/28/19at 08:34; Admin Dose 1 TAB; Start 03/24/19 at 09:00 Diagnostic Test (Pha) (Accu-Chek) 1 ea 02 XX Last administered on 03/28/19at 02:54; Admin Dose 1 EA; Start 03/24/19 at 02:00 Insulin Aspart (Novolog Insulin Pen) NOVOLOG *MILD* ALGORITHM WITH MEALS BEDTIME SC Last administered on 03/27/19at 11:10; Admin Dose 2 UNIT; Start 03/23/19 at 18:00 Miscellaneous Information 1 ea NOTE XX ; Start 03/23/19 at 17:30 Glucose (Glutose) 15 gm Q15M PRN PO DECREASED GLUCOSE; Start 03/23/19 at 17:30 Glucose (Glutose) 22.5 gm Q15M PRN PO DECREASED GLUCOSE; Start 03/23/19 at 17:30 Dextrose (D50w Syringe) 25 ml Q15M PRN IV DECREASED GLUCOSE; Start 03/23/19 at 17:30 Dextrose (D50w Syringe) 50 ml Q15M PRN IV DECREASED GLUCOSE; Start 03/23/19 at 17:30 Glucagon (Glucagen) 1 mg Q15M PRN IM DECREASED GLUCOSE; Start 03/23/19 at 17:30 Glucose (Glutose) 15 gm Q15M PRN BUCCAL DECREASED GLUCOSE; Start 03/23/19 at 17:30 Miscellaneous Information 1 ea NOTE XX ; Start 03/23/19 at 18:00 Glucose (Glutose) 15 gm Q15M PRN PO DECREASED GLUCOSE; Start 03/23/19 at 18:00 Glucose (Glutose) 22.5 gm Q15M PRN PO DECREASED GLUCOSE; Start 03/23/19 at 18:00 Dextrose (D50w Syringe) 25 ml Q15M PRN IV DECREASED GLUCOSE; Start 03/23/19 at 18:00 Dextrose (D50w Syringe) 50 ml Q15M PRN IV DECREASED GLUCOSE; Start 03/23/19 at 18:00 Glucagon (Glucagen) 1 mg Q15M PRN IM DECREASED GLUCOSE; Start 03/23/19 at 18:00 Glucose (Glutose) 15 gm Q15M PRN BUCCAL DECREASED GLUCOSE; Start 03/23/19 at 18:00 Insulin Glargine (Lantus) 45 units BID SC Last administered on 03/27/19 20:49; Admin Dose 45 UNITS; Start 03/23/19 at 21:00 EZETIMIBE (Zetia) 10 mg QHS PO Last administered on 03/27/19 20:42; Admin Dose 10 MG; Start 03/24/19 at 21:00 Vancomycin HCl (Vanco Iv Per Pharmacy) VANCOMYCIN PER PHARMACY PER PROTOCOL XX ; Start 03/24/19 at 14:30 Vancomycin HCl 250 ml @ 125 mls/hr Q8H IVPB Last administered on 03/28/19 00:52; Admin Dose 125 MLS/HR; Start 03/25/19 at 01:00; Status Hold Acetaminophen/ Hydrocodone Bitart ([place] (5/325)) 1 tab Q4H PRN PO MODERATE PAIN LEVEL 4-6 Last administered on 03/28/19 11:10; Admin Dose 1 TAB; Start 03/24/19 at 21:30 Insulin Aspart (Novolog Insulin Pen) 7 unit WITH MEALS SC Last administered on 03/27/19 11:10; Admin Dose 7 UNIT; Start 03/27/19 at 07:55 Nystatin (Nystatin Cr) 1 applic TID TOP Last administered on 03/28/19 08:39; Admin Dose 1 APPLIC; Start 03/26/19 at 21:00 Isosorbide Mononitrate (Imdur) 60 mg DAILY PO Last administered on 03/28/19 08:34; Admin Dose 60 MG; Start 03/28/19 at 09:00 Lorazepam (Ativan) 1 mg Q8H PRN PO anxiety Last administered on 03/27/19 21:33; Admin Dose 1 MG; Start 03/27/19 at 15:00 Nitroglycerin (Nitroglycerin (Sl Tab) 0.4 Mg) 1 tab Q5M PRN SL ANGINA; Start 03/28/19 at 11:30 VALARIE DORAN NP March 28, 2019 13:17
[2019-03-28] MEDS: LORAZEPAM 1 MG TAB PO PRN ×2 (14:25→23:17)
--- NOTE | 2019-03-28 17:33 | PN ---
Date/Time of Note Date/Time of Note DATE: 03/28/19 TIME: 17:32 Assessment/Plan VTE Prophylaxis Risk score (from Nsg)>0 risk: 5 SCD applied (from Nsg): Yes Pharmacological prophylaxis: heparin Lines/Catheters IV Catheter Type (from Nrsg): Saline Lock Assessment/Plan Hospital Course 1. 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 Borges appreciated Continue cardiac meds 2. History of coronary disease status post CABG Continue cardiac meds 3. History of peripheral vascular disease status post left BKA over a year ago at outside hospital Patient is reporting pain at the left BKA stump site with ulceration, bleeding ulcer was noted Continue wound care Continue abx per ID Wound culture shows staph aureus ID consultation appreciated Consultation with Dr. Fernandez appreciated, recommendation is to continue antibiotics and if the patient does not improve, may need revision of the stump Of note patient had left BKA over a year ago at [facility] 4. CHF-compensated 5. Hypertension-now stable Continue meds 6. Diabetes Continue schedule insulin, sliding scale 7. Anxiety Ativan as needed Prophylaxis: Lovenox Result Diagram: 03/25/19 0602 03/28/19 0808 Results 24hrs Laboratory Tests Test 03/27/19 20:40 03/28/19 02:49 03/28/19 06:05 03/28/19 07:47 Bedside Glucose 191 83 102 150 Test 03/28/19 08:08 03/28/19 08:31 03/28/19 11:12 Blood Urea Nitrogen 17 Creatinine 0.82 Vancomycin Level 24.1 *H Trough Bedside Glucose 189 175 Subjective 24 Hr Interval Summary Free Text/Dictation Comfortable, no chest symptoms Exam/Review of Systems Exam Vitals Vital Signs Date Temp Pulse Resp B/P (MAP) Pulse Ox O2 O2 Flow FiO2 Time Delivery Rate 03/28/19 69 16:00 03/28/19 98.2 20 114/65 95 Room Air 15:04 (81) 03/28/19 2.0 14:57 03/28/19 27 02:18 Intake and Output 03/27/19 03/27/19 03/28/19 1515:00 23:00 07:00 IntakeIntake Total 250 ml 1000 ml 850 ml OutputOutput Total 950 ml 850 ml BalanceBalance 250 ml 50 ml 0 ml Constitutional: alert, oriented, well developed Psych: no complaints, nl mood/affect Head: normocephalic, atraumatic Eyes: nl conjunctiva, EOMI, nl lids, nl sclera, PERRL ENMT: nl external ears & nose, nl lips & teeth, nl nasal mucosa & septum Neck: supple, non-tender Respiratory: clear to auscultation, normal air movement Cardiovascular: regular rate and rhythm, nl pulses Gastrointestinal: soft, nl liver, spleen, non-tender Musculoskeletal: nl extremities to inspection, nl gait and stance Extremities: normal pulses Neurological: INSTRUCTOR OF EDUCATION II-XII intact, nl mental status, nl speech, nl strength Skin: nl turgor; No rash or lesions Lymph: nl lymph nodes Results Results 24hrs Laboratory Tests Test 03/27/19 20:40 03/28/19 02:49 03/28/19 06:05 03/28/19 07:47 Bedside Glucose 191 83 102 150 Test 03/28/19 08:08 03/28/19 08:31 03/28/19 11:12 Blood Urea Nitrogen 17 Creatinine 0.82 Vancomycin Level 24.1 *H Trough Bedside Glucose 189 175 Medications Medication Current Medications IV Flush (NS 3 ml) 3 ml PER PROTOCOL IV ; Start 03/23/19 at 17:00 Ondansetron HCl (Zofran Inj) 4 mg Q6H PRN IV NAUSEA/VOMITING; Start 03/23/19 at 17:00 Acetaminophen (Tylenol Tab) 650 mg Q6H PRN PO .PAIN 1-3 OR TEMP; Start 03/23/19 at 17:00 Docusate Sodium (Colace) 100 mg Q12H PRN PO .CONSTIPATION Last administered on 03/25/19at 05:28; Admin Dose 100 MG; Start 03/23/19 at 17:00 Zolpidem Tartrate (Ambien) 5 mg QHS PRN PO .INSOMNIA Last administered on 03/26/19at 21:07; Admin Dose 5 MG; Start 03/23/19 at 17:00 Enoxaparin Sodium (Lovenox) 40 mg DAILY SC Last administered on 03/28/19at 08:41; Admin Dose 40 MG; Start 03/24/19 at 09:00 Amlodipine Besylate (Norvasc) 2.5 mg DAILY PO Last administered on 03/28/19 08:34; Admin Dose 2.5 MG; Start 03/24/19 at 09:00 Aspirin (Halfprin) 81 mg DAILY PO Last administered on 03/28/19 08:33; Admin Dose 81 MG; Start 03/24/19 at 09:00 Atorvastatin Calcium (Lipitor) 80 mg QHS PO Last administered on 03/27/19 20:42; Admin Dose 80 MG; Start 03/23/19 at 21:00 Carvedilol (Coreg) 25 mg BID PO Last administered on 03/28/19 08:33; Admin Dose 25 MG; Start 03/23/19 at 21:00 Clopidogrel Bisulfate (plaVIX) 75 mg DAILY PO Last administered on 03/28/19 08:33; Admin Dose 75 MG; Start 03/24/19 at 09:00 Furosemide (Lasix) 40 mg DAILY PO Last administered on 03/28/19 08:34; Admin Dose 40 MG; Start 03/24/19 at 09:00 Losartan Potassium (Cozaar) 100 mg DAILY PO Last administered on 03/28/19 08:33; Admin Dose 100 MG; Start 03/24/19 at 09:00 Metformin HCl (Glucophage) 1,000 mg WITH BREAKFAST DINNE PO Last administered on 03/28/19 17:22; Admin Dose 1,000 MG; Start 03/23/19 at 18:00 Senna (Senokot) 1 tab DAILY PO Last administered on 03/28/19 08:34; Admin Dose 1 TAB; Start 03/24/19 at 09:00 Diagnostic Test (Pha) (Accu-Chek) 1 ea 02 XX Last administered on 03/28/19 02:54; Admin Dose 1 EA; Start 03/24/19 at 02:00 Insulin Aspart (Novolog Insulin Pen) NOVOLOG *MILD* ALGORITHM WITH MEALS BEDTIME SC Last administered on 03/27/19 11:10; Admin Dose 2 UNIT; Start 03/23/19 at 18:00 Miscellaneous Information 1 ea NOTE XX ; Start 03/23/19 at 17:30 Glucose (Glutose) 15 gm Q15M PRN PO DECREASED GLUCOSE; Start 03/23/19 at 17:30 Glucose (Glutose) 22.5 gm Q15M PRN PO DECREASED GLUCOSE; Start 03/23/19 at 17:30 Dextrose (D50w Syringe) 25 ml Q15M PRN IV DECREASED GLUCOSE; Start 03/23/19 at 17:30 Dextrose (D50w Syringe) 50 ml Q15M PRN IV DECREASED GLUCOSE; Start 03/23/19 at 17:30 Glucagon (Glucagen) 1 mg Q15M PRN IM DECREASED GLUCOSE; Start 03/23/19 at 17:30 Glucose (Glutose) 15 gm Q15M PRN BUCCAL DECREASED GLUCOSE; Start 03/23/19 at 17:30 Miscellaneous Information 1 ea NOTE XX ; Start 03/23/19 at 18:00 Glucose (Glutose) 15 gm Q15M PRN PO DECREASED GLUCOSE; Start 03/23/19 at 18:00 Glucose (Glutose) 22.5 gm Q15M PRN PO DECREASED GLUCOSE; Start 03/23/19 at 18:00 Dextrose (D50w Syringe) 25 ml Q15M PRN IV DECREASED GLUCOSE; Start 03/23/19 at 18:00 Dextrose (D50w Syringe) 50 ml Q15M PRN IV DECREASED GLUCOSE; Start 03/23/19 at 18:00 Glucagon (Glucagen) 1 mg Q15M PRN IM DECREASED GLUCOSE; Start 03/23/19 at 18:00 Glucose (Glutose) 15 gm Q15M PRN BUCCAL DECREASED GLUCOSE; Start 03/23/19 at 18:00 Insulin Glargine (Lantus) 45 units BID SC Last administered on 03/27/19at 20:49; Admin Dose 45 UNITS; Start 03/23/19 at 21:00 EZETIMIBE (Zetia) 10 mg QHS PO Last administered on 03/27/19at 20:42; Admin Dose 10 MG; Start 03/24/19 at 21:00 Vancomycin HCl (Vanco Iv Per Pharmacy) VANCOMYCIN PER PHARMACY PER PROTOCOL XX ; Start 03/24/19 at 14:30 Acetaminophen/ Hydrocodone Bitart ([place] (5/325)) 1 tab Q4H PRN PO MODERATE PAIN LEVEL 4-6 Last administered on 03/28/19at 11:10; Admin Dose 1 TAB; Start 03/24/19 at 21:30 Insulin Aspart (Novolog Insulin Pen) 7 unit WITH MEALS SC Last administered on 03/27/19at 11:10; Admin Dose 7 UNIT; Start 03/27/19 at 07:55 Nystatin (Nystatin Cr) 1 applic TID TOP Last administered on 03/28/19at 13:50; Admin Dose 1 APPLIC; Start 03/26/19 at 21:00 Isosorbide Mononitrate (Imdur) 60 mg DAILY PO Last administered on 03/28/19at 08:34; Admin Dose 60 MG; Start 03/28/19 at 09:00 Lorazepam (Ativan) 1 mg Q8H PRN PO anxiety Last administered on 03/28/19at 14:25; Admin Dose 1 MG; Start 03/27/19 at 15:00 Nitroglycerin (Nitroglycerin (Sl Tab) 0.4 Mg) 1 tab Q5M PRN SL ANGINA; Start 03/28/19 at 11:30 Vancomycin/Sodium Chloride 250 ml @ 125 mls/hr Q12H IVPB ; Start 03/28/19 at 21:00 LEORA MARIA MD March 28, 2019 17:33
[2019-03-28] MEDS: EZETIMIBE 10 MG TAB PO SCH (20:49)
[2019-03-28] MEDS: VANCOMYCIN 750 MG (PMX) 250 ML IVPB SCH (20:49)
[2019-03-28] MEDS: ATORVASTATIN 80 MG TAB PO SCH (20:49)
[2019-03-28] MEDS ORDERED: VANCOMYCIN 1 GM 250 ML IVPB SCH (22:00)
[2019-03-29] VITALS: BP 110/53; PULSE 67; PULSE 73; RESP 20
[2019-03-29] MEDS: ACCU-CHEK XX SCH (02:11)
[2019-03-29 04:00] VITALS: BP 140/76; PULSE 73; PULSE 75; RESP 20
[2019-03-29] MEDS: INSULIN ASPART [NOVOLOG] 3 ML PEN SC SCH ×2 (07:27)
[2019-03-29 07:42] VITALS: BP 148/76; PULSE 77; RESP 20
[2019-03-29 08:01] VITALS: PULSE 75
[2019-03-29] MEDS: ISOSORBIDE MONONITRATE(SR)60 MG TAB PO SCH (08:07)
[2019-03-29] MEDS: LOSARTAN 50 MG TAB PO SCH (08:07)
[2019-03-29] MEDS: metFORMIN 500 MG TAB PO SCH (08:07)
[2019-03-29] MEDS: SENNA TAB PO SCH (08:08)
[2019-03-29] MEDS: FUROSEMIDE 40 MG TAB PO SCH (08:08)
[2019-03-29] MEDS: ASPIRIN (EC) 81 MG TAB PO SCH (08:08)
[2019-03-29] MEDS: AMLODIPINE 2.5 MG TAB PO SCH (08:08)
[2019-03-29] MEDS: CLOPIDOGREL 75 MG TAB PO SCH (08:08)
[2019-03-29] MEDS: ENOXAPARIN 40 MG/0.4 ML SYG SC SCH (08:11)
[2019-03-29] MEDS: VANCOMYCIN 750 MG (PMX) 250 ML IVPB SCH (08:14)
[2019-03-29] MEDS: NYSTATIN 15 GM CR TOP SCH (08:15)
[2019-03-29] MEDS: INSULIN GLARGINE [LANTus] (100 UNITS/ML) SYG SC SCH (08:17)
[2019-03-29] MEDS: LORAZEPAM 1 MG TAB PO PRN (09:19)
[2019-03-29] MEDS ORDERED: SULF1TAB31 PO (10:09)
--- NOTE | 2019-03-29 10:10 | PDOCDIS ---
Discharge Instructions DIAGNOSIS Discharge Diagnosis Stump infection CONDITION [id number] Patient Condition: [id number] Stable FOLLOW UP/APPOINTMENTS Follow-up Plan Make an appointment to see Dr Fernandez in clinic regarding your leg Take your antibiotics as prescribed. They are available to order picker at your pharmacy LEORA MARIA MD March 29, 2019 10:10
[2019-03-29 11:05] VITALS: BP 131/66; PULSE 74; RESP 20
--- NOTE | 2019-03-29 11:43 | CONS ---
Consult Date/Type/Reason Admit Date/Time March 25, 2019 at 10:17 Initial Consult Date 03/24/19 Requesting Provider: NADER PLAZA Date/Time of Note DATE: 03/29/19 TIME: 11:43 Subjective Cardiology follow-up progress note Subjective: Patient with no chest pain or pressure no palpitation. HIS foot pain is better. he wants to go home Objective: General: no acute distress HEENT: NC/AT. pupils are equal. round. NECK: NO JVD. no stridor. CV: RRR. systolic murmur; no gallop or rubs. PULM: no wheezing or rhonchi. GI: SOFT, NT, ND, no rebound or guarding Extremity: Left lower extremity status post BKA in dressing. neuro: awake and alert, OX3. Psych: calm and pleasant rectal: deferred : normal EKG was personally reviewed showed normal sinus rhythm. Inferior infarct age undetermined. Anterior infarct age undetermined. Nonspecific ST-T wave abnormalities Chest x-ray shows: No acute cardiopulmonary disease Objective Vitals Vital Signs Date Temp Pulse Resp B/P (MAP) Pulse Ox O2 O2 Flow FiO2 Time Delivery Rate 03/29/19 97.3 74 20 131/66 97 Room Air 11:05 (87) 03/29/19 2.0 06:30 03/28/19 02:18 Intake and Output 03/28/19 03/28/19 03/29/19 1515:00 23:00 07:00 IntakeIntake Total 1450 ml 1000 ml OutputOutput Total 1800 ml 1200 ml BalanceBalance -350 ml -200 ml Results/Medications Result Diagram: 03/25/19 0602 03/28/19 0808 Results 24 hrs Laboratory Tests Test 03/28/19 17:19 03/28/19 19:41 03/28/19 20:22 03/29/19 01:16 Bedside Glucose 218 270 H 261 H 145 Test 03/29/19 07:26 Bedside Glucose 161 Home Meds Active Scripts Sulfamethoxazole/Trimethoprim* (Bactrim Ds* Tablet) 1 Each Tablet, 1 TAB PO BID for 4 Days, #8 TAB Prov:LEORA MARIA MD 03/29/19 Amlodipine Besylate* (Amlodipine Besylate*) 2.5 Mg Tablet, 2.5 MG PO DAILY for 30 Days, TAB Prov:SPEEDY BASS MD 02/21/19 Reported Medications Sennosides* (Senna Lax*) 8.6 Mg Tablet, 1 TAB PO DAILY, TAB 03/23/19 Insulin Lispro (Humalog) 100 Unit/1 Ml Cartridge, 0 SQ BID, EA 5-10 UNITS-SLIDING SCALE 03/23/19 Clopidogrel Bisulfate* (Clopidogrel Bisulfate*) 75 Mg Tablet, 75 MG PO DAILY, #30 TAB 03/23/19 Atorvastatin* (Atorvastatin*) 80 Mg Tablet, 80 MG PO QHS, #30 TAB 03/23/19 Metformin Hcl* (Metformin Hcl*) 1,000 Mg Tablet, 1000 MG PO WITH BREAKFAST DINNE, #60 TAB 03/23/19 Losartan Potassium* (Losartan Potassium*) 100 Mg Tablet, 100 MG PO DAILY, TAB 03/23/19 Carvedilol* (Carvedilol*) 25 Mg Tablet, 25 MG PO BID, #60 TAB 03/23/19 Aspirin* (Aspirin* EC) 81 Mg Tablet.dr, 81 MG PO DAILY, TAB 03/23/19 Furosemide* (Furosemide*) 40 Mg Tablet, 40 MG PO DAILY, TAB 03/23/19 Lorazepam* (Lorazepam*) 0.5 Mg Tablet, 0.5 MG PO HS PRN for ANXIETY, TAB 03/23/19 Insulin Glargine,Hum.rec.anlog (Basaglar Kwikpen U-100) 100 Unit/1 Ml Insuln.pe n, 45 UNIT SC BID, EA 03/23/19 Discontinued Reported Medications Metformin Hcl* (Metformin Hcl*) 1,000 Mg Tablet, 1000 MG PO WITH LUNCH DINNER, #30 TAB 09/23/18 Nitroglycerin* (Nitrostat*) 0.4 Mg Tab.subl, 0.4 MG SL Q5MIN PRN for CHEST PAIN, BOTTLE 06/19/18 Magnesium Hydroxide* (Naylor' MOM*) 30 Ml Susp, 30 ML PO DAILY, ML 06/19/18 Lorazepam* (Lorazepam*) 0.5 Mg Tablet, 0.5 MG PO Q6 PRN for ANXIETY, TAB 06/19/18 Furosemide* (Furosemide*) 40 Mg/5 Ml Solution, 40 MG PO DAILY, #150 ML 06/19/18 Famotidine* (Famotidine*) 20 Mg Tablet, 20 MG PO DAILY, #30 TAB 06/19/18 Atorvastatin* (Atorvastatin*) 80 Mg Tablet, 80 MG PO QHS, #30 TAB 06/19/18 Aspirin Ec (Aspir 81) 81 Mg Tablet.dr, 81 MG PO DAILY, #30 TAB 06/19/18 Insulin Glargine* (Lantus*) 100 Unit/Ml Soln, 45 UNIT SC QHS, #1 VIAL 06/19/18 Discontinued Scripts Insulin Lispro (Humalog Kwikpen U-100) 100 Unit/1 Ml Insuln.pen, 15 UNIT SQ AC MEALS, #1 SYR #100 32 GAUGE INSULIN PEN NEEDLES Prov:RENATA JOHNSTON V. AFFILIATE MANAGER 11/12/18 Spironolactone* (Aldactone*) 25 Mg Tablet, 25 MG PO DAILY@0600, #30 TAB Prov:RENATA JOHNSTON V. AFFILIATE MANAGER 11/12/18 Carvedilol* (Carvedilol*) 6.25 Mg Tablet, 25 MG PO BID for 30 Days, #60 TAB Prov:RENATA JOHNSTON V. AFFILIATE MANAGER 11/12/18 Clopidogrel Bisulfate (Clopidogrel) 75 Mg Tablet, 75 MG PO DAILY for 30 Days, #30 TAB Prov:KAYCEE SWARTZ MD 06/22/18 Losartan Potassium* (Losartan Potassium*) 50 Mg Tablet, 50 MG PO BID for 30 Days, #60 TAB Prov:KAYCEE SWARTZ MD 06/21/18 Albuterol Sulfate* (Proair HFA*) 8.5 Gm Hfa.aer.ad, 2 PUFF INH Q4 for SHORTNESS OF BREATH, #1 INHALER Prov:TASHA WATERS NP 11/15/17 Medications Current Medications IV Flush (NS 3 ml) 3 ml PER PROTOCOL IV ; Start 03/23/19 at 17:00 Ondansetron HCl (Zofran Inj) 4 mg Q6H PRN IV NAUSEA/VOMITING; Start 03/23/19 at 17:00 Acetaminophen (Tylenol Tab) 650 mg Q6H PRN PO .PAIN 1-3 OR TEMP; Start 03/23/19 at 17:00 Docusate Sodium (Colace) 100 mg Q12H PRN PO .CONSTIPATION Last administered on 03/25/19at 05:28; Admin Dose 100 MG; Start 03/23/19 at 17:00 Zolpidem Tartrate (Ambien) 5 mg QHS PRN PO .INSOMNIA Last administered on 03/26/19 21:07; Admin Dose 5 MG; Start 03/23/19 at 17:00 Enoxaparin Sodium (Lovenox) 40 mg DAILY SC Last administered on 03/29/19 08:11; Admin Dose 40 MG; Start 03/24/19 at 09:00 Amlodipine Besylate (Norvasc) 2.5 mg DAILY PO Last administered on 03/29/19 08:08; Admin Dose 2.5 MG; Start 03/24/19 at 09:00 Aspirin (Halfprin) 81 mg DAILY PO Last administered on 03/29/19 08:08; Admin Dose 81 MG; Start 03/24/19 at 09:00 Atorvastatin Calcium (Lipitor) 80 mg QHS PO Last administered on 03/28/19 20:49; Admin Dose 80 MG; Start 03/23/19 at 21:00 Carvedilol (Coreg) 25 mg BID PO Last administered on 03/29/19 08:08; Admin Dose 25 MG; Start 03/23/19 at 21:00 Clopidogrel Bisulfate (plaVIX) 75 mg DAILY PO Last administered on 03/29/19 08:08; Admin Dose 75 MG; Start 03/24/19 at 09:00 Furosemide (Lasix) 40 mg DAILY PO Last administered on 03/29/19 08:08; Admin Dose 40 MG; Start 03/24/19 at 09:00 Losartan Potassium (Cozaar) 100 mg DAILY PO Last administered on 03/29/19 08 :07; Admin Dose 100 MG; Start 03/24/19 at 09:00 Metformin HCl (Glucophage) 1,000 mg WITH BREAKFAST DINNE PO Last administered on 03/29/19 08:07; Admin Dose 1,000 MG; Start 03/23/19 at 18:00 Senna (Senokot) 1 tab DAILY PO Last administered on 03/29/19 08:08; Admin Dose 1 TAB; Start 03/24/19 at 09:00 Diagnostic Test (Pha) (Accu-Chek) 1 ea 02 XX Last administered on 03/29/19 02:11; Admin Dose 1 EA; Start 03/24/19 at 02:00 Insulin Aspart (Novolog Insulin Pen) NOVOLOG *MILD* ALGORITHM WITH MEALS BEDTIME SC Last administered on 03/28/19at 20:59; Admin Dose 3 UNIT; Start 03/23/19 at 18:00 Miscellaneous Information 1 ea NOTE XX ; Start 03/23/19 at 17:30 Glucose (Glutose) 15 gm Q15M PRN PO DECREASED GLUCOSE; Start 03/23/19 at 17:30 Glucose (Glutose) 22.5 gm Q15M PRN PO DECREASED GLUCOSE; Start 03/23/19 at 17:30 Dextrose (D50w Syringe) 25 ml Q15M PRN IV DECREASED GLUCOSE; Start 03/23/19 at 17:30 Dextrose (D50w Syringe) 50 ml Q15M PRN IV DECREASED GLUCOSE; Start 03/23/19 at 17:30 Glucagon (Glucagen) 1 mg Q15M PRN IM DECREASED GLUCOSE; Start 03/23/19 at 17:30 Glucose (Glutose) 15 gm Q15M PRN BUCCAL DECREASED GLUCOSE; Start 03/23/19 at 17:30 Miscellaneous Information 1 ea NOTE XX ; Start 03/23/19 at 18:00 Glucose (Glutose) 15 gm Q15M PRN PO DECREASED GLUCOSE; Start 03/23/19 at 18:00 Glucose (Glutose) 22.5 gm Q15M PRN PO DECREASED GLUCOSE; Start 03/23/19 at 18:00 Dextrose (D50w Syringe) 25 ml Q15M PRN IV DECREASED GLUCOSE; Start 03/23/19 at 18:00 Dextrose (D50w Syringe) 50 ml Q15M PRN IV DECREASED GLUCOSE; Start 03/23/19 at 18:00 Glucagon (Glucagen) 1 mg Q15M PRN IM DECREASED GLUCOSE; Start 03/23/19 at 18:00 Glucose (Glutose) 15 gm Q15M PRN BUCCAL DECREASED GLUCOSE; Start 03/23/19 at 18:00 Insulin Glargine (Lantus) 45 units BID SC Last administered on 03/29/19at 08:17; Admin Dose 45 UNITS; Start 03/23/19 at 21:00 EZETIMIBE (Zetia) 10 mg QHS PO Last administered on 03/28/19at 20:49; Admin Dose 10 MG; Start 03/24/19 at 21:00 Vancomycin HCl (Vanco Iv Per Pharmacy) VANCOMYCIN PER PHARMACY PER PROTOCOL XX ; Start 03/24/19 at 14:30 Acetaminophen/ Hydrocodone Bitart ([place] (5/325)) 1 tab Q4H PRN PO MODERATE PAIN LEVEL 4-6 Last administered on 03/28/19 11:10; Admin Dose 1 TAB; Start 03/24/19 at 21:30 Insulin Aspart (Novolog Insulin Pen) 7 unit WITH MEALS SC Last administered on 03/27/19 11:10; Admin Dose 7 UNIT; Start 03/27/19 at 07:55 Nystatin (Nystatin Cr) 1 applic TID TOP Last administered on 03/29/19 08:15; Admin Dose 1 APPLIC; Start 03/26/19 at 21:00 Isosorbide Mononitrate (Imdur) 60 mg DAILY PO Last administered on 03/29/19 08:07; Admin Dose 60 MG; Start 03/28/19 at 09:00 Lorazepam (Ativan) 1 mg Q8H PRN PO anxiety Last administered on 03/29/19 09:19; Admin Dose 1 MG; Start 03/27/19 at 15:00 Nitroglycerin (Nitroglycerin (Sl Tab) 0.4 Mg) 1 tab Q5M PRN SL ANGINA; Start 03/28/19 at 11:30 Vancomycin/Sodium Chloride 250 ml @ 125 mls/hr Q12H IVPB Last administered on 03/29/19 08:14; Admin Dose 125 MLS/HR; Start 03/28/19 at 21:00 Assessment/Plan Hospital Course (Demo Recall) Chest pain ; probably due to his chronic angina secondary to chronic total occlusions. Has resolved now with negative troponins Coronary artery with history of multiple PCI and bypass surgery Ischemic cardiomyopathy Hypertension Severe peripheral vascular disease status post left BKA multiple revascularization of lower extremities Diabetes Dyslipidemia Recommendations: Continue with the losartan and Coreg. Continue with high-dose statin. Zetia has been added as well for better management of his lipids Stump management and wound care as per internal medicine and consultants Diabetic management as per internal medicine Continue with Plavix Nitrates has been added No further cardiac recommendation at this point. Patient has been advised to follow-up as an outpatient RACHEL CALLAHAN MD [facility] RACHEL CALLAHAN MD March 29, 2019 11:43
--- NOTE | 2019-03-29 15:50 | DS ---
Date/Time of Note Date/Time of Note DATE: 03/29/19 TIME: 15:49 Discharge Summary Admission/Discharge Info Admit Date/Time March 25, 2019 at 10:17 Discharge Date/Time March 29, 2019 at 11:45 Discharge Diagnosis Stump infection Patient Condition: Stable Hospital Course 1. Chest pain likely secondary to hypertension No evidence of ACS at this time, clear for DC per cardiology Pain is now resolved Cardiology consultation with patient's railroad cook Dr. Borges appreciated Continue cardiac meds 2. History of coronary disease status post CABG Continue cardiac meds 3. History of peripheral vascular disease status post left BKA over a year ago at outside hospital Patient is reporting pain at the left BKA stump site with ulceration, bleeding ulcer was noted. He was treated with IV antibiotics. Sympotms improved and he was discharged on PO antibiotics. He will follow up with Dr Fernandez Home Meds Active Scripts Sulfamethoxazole/Trimethoprim* (Bactrim Ds* Tablet) 1 Each Tablet, 1 TAB PO BID for 4 Days, #8 TAB Prov:LEORA MARIA MD 03/29/19 Amlodipine Besylate* (Amlodipine Besylate*) 2.5 Mg Tablet, 2.5 MG PO DAILY for 30 Days, TAB Prov:SPEEDY BASS MD 02/21/19 Reported Medications Sennosides* (Senna Lax*) 8.6 Mg Tablet, 1 TAB PO DAILY, TAB 03/23/19 Insulin Lispro (Humalog) 100 Unit/1 Ml Cartridge, 0 SQ BID, EA 5-10 UNITS-SLIDING SCALE 03/23/19 Clopidogrel Bisulfate* (Clopidogrel Bisulfate*) 75 Mg Tablet, 75 MG PO DAILY, #30 TAB 03/23/19 Atorvastatin* (Atorvastatin*) 80 Mg Tablet, 80 MG PO QHS, #30 TAB 03/23/19 Metformin Hcl* (Metformin Hcl*) 1,000 Mg Tablet, 1000 MG PO WITH BREAKFAST DINNE, #60 TAB 03/23/19 Losartan Potassium* (Losartan Potassium*) 100 Mg Tablet, 100 MG PO DAILY, TAB 03/23/19 Carvedilol* (Carvedilol*) 25 Mg Tablet, 25 MG PO BID, #60 TAB 03/23/19 Aspirin* (Aspirin* EC) 81 Mg Tablet., 81 MG PO DAILY, TAB 03/23/19 Furosemide* (Furosemide*) 40 Mg Tablet, 40 MG PO DAILY, TAB 03/23/19 Lorazepam* (Lorazepam*) 0.5 Mg Tablet, 0.5 MG PO HS PRN for ANXIETY, TAB 03/23/19 Insulin Glargine,Hum.rec.anlog (Basaglar Kwikpen U-100) 100 Unit/1 Ml Insuln.pen, 45 UNIT SC BID, EA 03/23/19 Discontinued Reported Medications Metformin Hcl* (Metformin Hcl*) 1,000 Mg Tablet, 1000 MG PO WITH LUNCH DINNER, #30 TAB 09/23/18 Nitroglycerin* (Nitrostat*) 0.4 Mg Tab.subl, 0.4 MG SL Q5MIN PRN for CHEST PAIN, BOTTLE 06/19/18 Magnesium Hydroxide* (Naylor' MOM*) 30 Ml Susp, 30 ML PO DAILY, ML 06/19/18 Lorazepam* (Lorazepam*) 0.5 Mg Tablet, 0.5 MG PO Q6 PRN for ANXIETY, TAB 06/19/18 Furosemide* (Furosemide*) 40 Mg/5 Ml Solution, 40 MG PO DAILY, #150 ML 06/19/18 Famotidine* (Famotidine*) 20 Mg Tablet, 20 MG PO DAILY, #30 TAB 06/19/18 Atorvastatin* (Atorvastatin*) 80 Mg Tablet, 80 MG PO QHS, #30 TAB 06/19/18 Aspirin Ec (Aspir 81) 81 Mg Tablet.dr, 81 MG PO DAILY, #30 TAB 06/19/18 Insulin Glargine* (Lantus*) 100 Unit/Ml Soln, 45 UNIT SC QHS, #1 VIAL 06/19/18 Discontinued Scripts Insulin Lispro (Humalog Kwikpen U-100) 100 Unit/1 Ml Insuln.pen, 15 UNIT SQ AC MEALS, #1 SYR #100 32 GAUGE INSULIN PEN NEEDLES Prov:JOHNSTON,RENATA V. PEDIATRIC CRITICAL CARE NURSE 11/12/18 Spironolactone* (Aldactone*) 25 Mg Tablet, 25 MG PO DAILY@0600, #30 TAB Prov:JOHNSTON,RENATA V. PEDIATRIC CRITICAL CARE NURSE 11/12/18 Carvedilol* (Carvedilol*) 6.25 Mg Tablet, 25 MG PO BID for 30 Days, #60 TAB Prov:JOHNSTON,RENATA V. PEDIATRIC CRITICAL CARE NURSE 11/12/18 Clopidogrel Bisulfate (Clopidogrel) 75 Mg Tablet, 75 MG PO DAILY for 30 Days, #30 TAB Prov:KAYCEE SWARTZ MD 06/22/18 Losartan Potassium* (Losartan Potassium*) 50 Mg Tablet, 50 MG PO BID for 30 Days, #60 TAB Prov:KAYCEE SWARTZ MD 06/21/18 Albuterol Sulfate* (Proair HFA*) 8.5 Gm Hfa.aer.ad, 2 PUFF INH Q4 for SHORTNESS OF BREATH, #1 INHALER Prov:TASHA WATERS NP 11/15/17 Follow-up Plan Make an appointment to see Dr Fernandez in clinic regarding your leg Take your antibiotics as prescribed. They are available to citrus picker at your pharmacy Primary Care Provider Zara Hill Pending Labs Laboratory Tests Test 03/28/19 17:19 03/28/19 19:41 03/28/19 20:22 03/29/19 01:16 Bedside 218 270 261 145 Glucose mg/dL (70-220) mg/dL (70-220) mg/dL (70-220) mg/dL (70-220) Test 03/29/19 07:26 Bedside 161 Glucose mg/dL (70-220) LEORA MARIA MD March 29, 2019 15:50
== END 2019-03-29 11:45 | disposition home or self-care (01) | DRG 565 ==
LOC: E/R 12:20 → TEL 14:53 → OBSVTOIN 03-25 10:17
PROVIDERS: ADMIT Internal Medicine; ATTEND Internal Medicine
DX: T87.44 Infection of amputation stump, left lower extremity (principal); R65.10 Systemic inflammatory response syndrome (SIRS) of non-infectious origin without acute organ dysfunction; L03.116 Cellulitis of left lower limb; I25.118 Atherosclerotic heart disease of native coronary artery with other forms of angina pectoris; I25.82 Chronic total occlusion of coronary artery; I11.0 Hypertensive heart disease with heart failure; E11.42 Type 2 diabetes mellitus with diabetic polyneuropathy; I25.5 Ischemic cardiomyopathy; E78.5 Hyperlipidemia, unspecified; F41.9 Anxiety disorder, unspecified; B95.61 Methicillin susceptible Staphylococcus aureus infection as the cause of diseases classified elsewhere; E11.51 Type 2 diabetes mellitus with diabetic peripheral angiopathy without gangrene; E11.628 Type 2 diabetes mellitus with other skin complications; B36.8 Other specified superficial mycoses; Z79.4 Long term (current) use of insulin; Z89.512 Acquired absence of left leg below knee; Z79.02 Long term (current) use of antithrombotics/antiplatelets; Z79.82 Long term (current) use of aspirin; Z95.1 Presence of aortocoronary bypass graft; Y83.5 Amputation of limb(s) as the cause of abnormal reaction of the patient, or of later complication, without mention of misadventure at the time of the procedure
CPT/HCPCS: 36415; 70460; 71045; 80048; 80053; 80061; 80202; 82550; 82553; 82565; 82962; 83036; 83735; 83880; 84100; 84484; 84520; 85025; 87070; 93005; G0378; J1650; J1815; J2270; J3370; J7050

== ENCOUNTER 2019-04-16 10:36 | Observation (INO) | payer OTHER ==
[~2019-04-16] VITALS: Ht 177.8 cm; Wt 88.0 kg
[~2019-04-16 10:36] MED LIST changes: -ALBU8.5H8 INH; -ASPI-535 PO; +ASPI-817 PO; +CARV25TA79 PO; -CARV6.2579 PO; +CLOP75TA19 PO; -CLOP75TA28 PO; -FAMO20TA18 PO; -FURO40SO PO; +FURO40TA4 PO; +INSU100C SQ; -INSU100I12 SQ; +INSU100I33 SC; -LANT3I SC; +LOSA100T15 PO; -LOSA50TA14 PO; -NITR0.4T39 SL; +SENN-120 PO; -SPIR25TA PO; +SULF1TAB31 PO; -UDMOM PO
[2019-04-16] MEDS ORDERED: ONDANSETRON 4 MG INJ IV STA (10:40)
[2019-04-16] MEDS ORDERED: morphine 4 MG/ML VIAL IV STA (10:40)
--- NOTE | 2019-04-16 10:49 | ERD ---
ER Documentation Chief Complaint Chief Complaint PT BIB RA 81 with c/o intermittent non-raditing CP since 6 pm yesterday HPI This is a 64-year-old male with a past medical history of insulin-dependent diabetes mellitus hypertension coronary artery disease status post CABG 16 months ago. The patient's vascular surgeon was Dr. Fernandez. His material man is Dr. buckley.. The patient indicates that roughly 14 hours prior to arrival he started to develop chest pain. He stated was a pressure-like sensation. It was 6 out of 10 in intensity. The patient takes aspirin and Plavix. Indicates that he was able to sleep throughout the evening but when he awoke this morning the chest pain was still present. He stated the pain began to radiate to the left arm. There is no radiation to the neck or back. EMS arrived and indicated that the patient received 325 mg of aspirin and 2 sprays of nitroglycerin that improved his chest pain to 2 out of 10 in intensity. No associated symptoms of nausea vomiting or diaphoresis. He denies any shortness of breath. He has been compliant with all his medications. ROS All systems reviewed and are negative except as per history of present illness. Medications Home Meds Active Scripts Sulfamethoxazole/Trimethoprim* (Bactrim Ds* Tablet) 1 Each Tablet, 1 TAB PO BID for 4 Days, #8 TAB Prov:LEORA MARIA MD 03/29/19 Amlodipine Besylate* (Amlodipine Besylate*) 2.5 Mg Tablet, 2.5 MG PO DAILY for 30 Days, TAB Prov:SPEEDY BASS MD 02/21/19 Reported Medications Sennosides* (Senna Lax*) 8.6 Mg Tablet, 1 TAB PO DAILY, TAB 03/23/19 Insulin Lispro (Humalog) 100 Unit/1 Ml Cartridge, 0 SQ BID, EA 5-10 UNITS-SLIDING SCALE 03/23/19 Clopidogrel Bisulfate* (Clopidogrel Bisulfate*) 75 Mg Tablet, 75 MG PO DAILY, #30 TAB 03/23/19 Atorvastatin* (Atorvastatin*) 80 Mg Tablet, 80 MG PO QHS, #30 TAB 03/23/19 Metformin Hcl* (Metformin Hcl*) 1,000 Mg Tablet, 1000 MG PO WITH BREAKFAST DINNE, #60 TAB 03/23/19 Losartan Potassium* (Losartan Potassium*) 100 Mg Tablet, 100 MG PO DAILY, TAB 03/23/19 Carvedilol* (Carvedilol*) 25 Mg Tablet, 25 MG PO BID, #60 TAB 03/23/19 Aspirin* (Aspirin* EC) 81 Mg Tablet.dr, 81 MG PO DAILY, TAB 03/23/19 Furosemide* (Furosemide*) 40 Mg Tablet, 40 MG PO DAILY, TAB 03/23/19 Lorazepam* (Lorazepam*) 0.5 Mg Tablet, 0.5 MG PO HS PRN for ANXIETY, TAB 03/23/19 Insulin Glargine,Hum.rec.anlog (Basaglar Kwikpen U-100) 100 Unit/1 Ml Insuln.pen, 45 UNIT SC BID, EA 03/23/19 Allergies Allergies: Coded Allergies: No Known Allergy (Unverified , 03/23/19) PMhx/Soc History of Surgery: Yes (2 months ago as per pt, Lt BKA) Anesthesia Reaction: No Hx Neurological Disorder: No Hx Respiratory Disorders: No Hx Cardiac Disorders: Yes (HTN, Hx CABG) Hx Psychiatric Problems: No Hx Miscellaneous Medical Probl: Yes (DM) Hx Alcohol Use: Yes (socially) Hx Substance Use: No Hx Tobacco Use: Yes (former smoker) Physical Exam Vitals Vital Signs Date Temp Pulse Resp B/P (MAP) Pulse Ox O2 O2 Flow FiO2 Time Delivery Rate 04/16/19 98.2 83 16 151/80 99 10:38 (103) Physical Exam Constitutional:Well-developed. Well-nourished. HEENT:Normocephalic. Atraumatic.Pupils were equal round reactive to light. Neck: No nuchal rigidity. No lymphadenopathy. No posterior cervical spine tenderness or step-offs. No JVD Respiratory: Not using accessory muscles of respiration.Lungs were clear to auscultation bilaterally. No rhonchi. No rales. No wheezing. Cardiovascular: Regular rate regular rhythm.No murmurs. No rubs were appreciated.S1, S2 normal. Distal pulses are palpable 2+ on the right lower extremity. GI: Abdomen was soft. Nontender. Non Distended. No pulsatile abdominal masses or bruits. No rebound. No guarding. Bowel sounds were present and normal. Muscle skeletal: Full range motion of the upper extremities. Patient has a left below the knee amputation and stump is clean dry and intact. Skin: No petechia, no purpura. No lesions on the palms or the soles of the feet. No maculopapular rash. NEURO: Patient was alert, awake, orientated x3.No facial droop.Speech had reg ular rate and rhythm. No focal neurological deficits. Results 24 hrs Current Medications Medications Dose Sig/Masha Start Time Status Last (Trade) Ordered Route PRN Stop Time Admin Dose Reason Admin Morphine 4 mg ONCE STAT 04/16/19 DC Sulfate IV 10:40 (morphine) 04/16/19 10:41 Ondansetron 4 mg ONCE STAT 04/16/19 DC HCl (Zofran IV 10:40 Inj) 04/16/19 10:41 Procedures/MDM The patient presented to the emergency department with chest pain. My clinical evaluation and workup was to distinguish minor causes of chest pain from acute life threatening conditions such as myocardial infarction, pulmonary embolism, aortic dissection, esophageal rupture, cardiac tamponade. The patient was placed on a sound system installer and continuous pulse oximetry. IV access established by nursing staff. The patient artery received aspirin and nitroglycerin. He was given intravenous morphine and Zofran for analgesia control. 12 Lead EKG tracing ordered and reviewed by myself showed: Normal sinus rhythm of 75 bpm and no arrhythmia. DC interval normal. QRS duration normal. Left ventricular hypertrophy with premature ventricular complexes No ST segment elevation No ST segment depression. No changes consistent with acute ischemia. Given the patient's multiple cardiac risk factors he will be admitted for serial twelve-lead EKG tracing and cardiac set of enzymes. Departure Diagnosis: Primary Impression: Chest pain Chest pain type: unspecified Qualified Codes: R07.9 - Chest pain, unspecified Condition: Serious FAIZAN EDWARDS MD Apr 16, 2019 10:49
[2019-04-16] MEDS ORDERED: ONDANSETRON 4 MG INJ IV PRN (12:00)
[2019-04-16] MEDS ORDERED: ACETAMINOPHEN 325 MG TAB PO PRN (12:00)
[2019-04-16] MEDS ORDERED: HYDROCODONE/APAP (5/325) TAB PO PRN (12:00)
[2019-04-16] MEDS ORDERED: NACL 0.9% 3 ML SYG IV SCH (12:00)
[2019-04-16] MEDS ORDERED: INSULIN ASPART [NOVOLOG] 3 ML PEN SC SCH ×2 (12:00)
[2019-04-16] MEDS ORDERED: GLUCAGON 1 MG INJ IM PRN (12:30)
[2019-04-16] MEDS ORDERED: DEXTROSE 50% 50 ML SYRINGE IV PRN ×2 (12:30)
[2019-04-16] MEDS ORDERED: GLUCOSE GEL 15 GRAM TUBE BUCCAL PRN (12:30)
[2019-04-16] MEDS ORDERED: GLUCOSE GEL 15 GRAM TUBE PO PRN ×2 (12:30)
[2019-04-16] MEDS ORDERED: LORAZEPAM 2 MG INJ IV ONE (14:30)
[2019-04-16 16:01] VITALS: PULSE 59
--- NOTE | 2019-04-16 17:09 | HP ---
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 estimator notifed to admission DMII: - Basal/bolus insulin Hypertension: - Conitnue home antihypertensives Result Diagram: 04/16/19 1052 04/16/19 1052 Results 24hrs Laboratory Tests Test 04/16/19 10:52 White Blood Count 9.1 Red Blood Count 4.21 L Hemoglobin 11.2 L Hematocrit 35.3 L Mean Corpuscular Volume 83.8 Mean Corpuscular Hemoglobin 26.6 L Mean Corpuscular Hemoglobin Concent 31.7 L Red Cell Distribution Width 15.5 H Platelet Count 206 # Mean Platelet Volume 11.8 H Immature Granulocytes % 0.300 Neutrophils % 68.9 Lymphocytes % 23.6 Monocytes % 6.1 Eosinophils % 0.8 Basophils % 0.3 Nucleated Red Blood Cells % 0.0 Immature Granulocytes # 0.030 Neutrophils # 6.2 Lymphocytes # 2.1 Monocytes # 0.6 Eosinophils # 0.1 Basophils # 0.0 Nucleated Red Blood Cells # 0.0 Prothrombin Time 13.2 Prothrombin Time Ratio 1.0 INR International Normalized Ratio 0.99 Activated Partial Thromboplast Time 31.0 Sodium Level 142 Potassium Level 4.0 Chloride Level 106 Carbon Dioxide Level 26 Anion Gap 10 Blood Urea Nitrogen 12 Creatinine 0.75 Est Glomerular Filtrat Rate mL/min > 60 Glucose Level 233 H Calcium Level 9.2 Total Bilirubin 0.6 Direct Bilirubin 0.00 Indirect Bilirubin 0.6 Aspartate Amino Transf (AST/SGOT) 23 Alanine Aminotransferase (ALT/SGPT) 26 Alkaline Phosphatase 66 Troponin I < 0.012 B-Type Natriuretic Peptide 1090 H Total Protein 7.0 Albumin 3.8 Globulin 3.20 Albumin/Globulin Ratio 1.18 HPI/ROS Admit Date/Time Admit Date/Time Apr 16, 2019 at 11:49 Hx of Present Illness 64 yo male with CAD s/p CABG, PAD s/p BKA, DMII presents with CP Adherent to DAPT and all meds he says. Today 5 am awoken from sleep wtih CP. Has persisted. A bit less. Located over left chest. No worsened by anything he can identify. No cough, no fevers or chills. No angina. Has felt well up until this morning. No SOB. No edema or orthopena ROS Constitutional: no complaints, improved Eyes: no complaints ENT: no complaints Respiratory: no complaints Cardiovascular: no complaints Gastrointestinal: no complaints Genitourinary: no complaints Musculoskeletal: no complaints Skin: no complaints Neurologic: no complaints Endocrine: no complaints Lymphatic: no complaints Psychological: no complaints, nl mood/affect Immunologic: no complaints PMH/Family/Social Past Medical History Medical History: coronary artery disease, diabetes Medications Current Medications Ondansetron HCl (Zofran Inj) 4 mg ER BRIDGE PRN IV NAUSEA/VOMITING; Start 04/16/19 at 12:00; Stop 04/17/19 at 11:59 Acetaminophen (Tylenol Tab) 650 mg ER BRIDGE PRN PO .MILD PAIN 1-3 OR TEMP; Start 04/16/19 at 12:00; Stop 04/17/19 at 11:59 IV Flush (NS 3 ml) 3 ml PER PROTOCOL IV ; Start 04/16/19 at 12:00 Acetaminophen/ Hydrocodone Bitart ([place] (5/325)) 2 tab Q6H PRN PO .SEVERE PAIN 7-10; Start 04/16/19 at 12:00 Miscellaneous Information 1 ea NOTE XX ; Start 04/16/19 at 12:30 Glucose (Glutose) 15 gm Q15M PRN PO DECREASED GLUCOSE; Start 04/16/19 at 12:30 Glucose (Glutose) 22.5 gm Q15M PRN PO DECREASED GLUCOSE; Start 04/16/19 at 12:30 Dextrose (D50w Syringe) 25 ml Q15M PRN IV DECREASED GLUCOSE; Start 04/16/19 at 12:30 Dextrose (D50w Syringe) 50 ml Q15M PRN IV DECREASED GLUCOSE; Start 04/16/19 at 12:30 Glucagon (Glucagen) 1 mg Q15M PRN IM DECREASED GLUCOSE; Start 04/16/19 at 12:30 Glucose (Glutose) 15 gm Q15M PRN BUCCAL DECREASED GLUCOSE; Start 04/16/19 at 12:30 Amlodipine Besylate (Norvasc) 2.5 mg DAILY PO ; Start 04/17/19 at 09:00 Aspirin (Halfprin) 81 mg DAILY PO ; Start 04/17/19 at 09:00 Atorvastatin Calcium (Lipitor) 80 mg QHS PO ; Start 04/16/19 at 21:00 Carvedilol (Coreg) 25 mg BID PO ; Start 04/16/19 at 21:00 Clopidogrel Bisulfate (plaVIX) 75 mg DAILY PO ; Start 04/17/19 at 09:00 Furosemide (Lasix) 40 mg DAILY PO ; Start 04/17/19 at 09:00 Losartan Potassium (Cozaar) 100 mg DAILY PO ; Start 04/17/19 at 09:00 Senna (Senokot) 1 tab DAILY PO ; Start 04/17/19 at 09:00 Insulin Glargine (Lantus) 13 units DAILY@2000 SC ; Start 04/16/19 at 20:00 Insulin Aspart (Novolog Insulin Pen) 6 unit WITH MEALS SC ; Start 04/16/19 at 18:00 Insulin Aspart (Novolog Insulin Pen) NOVOLOG *MODERATE* ALGORITHM WITH MEALS BEDTIME SC ; Start 04/16/19 at 18:00 Coded Allergies: No Known Allergy (Unverified , 04/16/19) Past Surgical History Past Surgical Hx: angioplasty, coronary bypass surgery, other Family History Significant Family History: no pertinent family hx Social History Alcohol Use: none Smoking Status: Current every day smoker Drug Use: none Exam/Review of Systems Vital Signs Vitals Vital Signs Date Temp Pulse Resp B/P (MAP) Pulse Ox O2 O2 Flow FiO2 Time Delivery Rate 04/16/19 58 20 138/71 100 Nasal 2.0 14:44 (93) Cannula 04/16/19 98.2 10:38 Exam Exam Well appearing no distress RRR Flat neck veins CTAB Soft nt nd s/p L BKA No edema A/P: 64 yo male with h/o CAD s/p CABG, PAD s/p BKA, DMII who presnets with chest pain syndrome - ACS is possible, will cycle troponins - 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
[2019-04-16] MEDS: INSULIN ASPART [NOVOLOG] 3 ML PEN SC SCH ×3 (17:24→20:42)
--- NOTE | 2019-04-16 17:25 | CONS ---
Assessment/Plan Assessment/Plan Assessment/Plan (Daily) Chest pain CABG S/P LLE BKA DM HTN 02/18 EF 25-30% - Ischemic CM --Normal trop, no recurrent pain and pain freee at this time -will check trops, ekg, monitor on tele -Cont cv meds -no active CHF Consultation Date/Type/Reason Admit Date/Time Apr 16, 2019 at 11:49 Type of Consult Cardiology Date/Time of Note DATE: 04/16/19 TIME: 17:21 Hx of Present Illness This is a 64-year-old male with a past medical history of insulin-dependent diabetes mellitus hypertension coronary artery disease status post CABG 16 months ago. The patient's vascular surgeon was Dr. Fernandez. The patient indicates that roughly 14 hours prior to arrival he started to develop chest pain. He stated was a pressure-like sensation. It was 6 out of 10 in intensity. The patient takes aspirin and Plavix. Indicates that he was able to sleep throughout the evening but when he awoke this morning the chest pain was still present. He stated the pain began to radiate to the left arm. There is no radiation to the neck or back. EMS arrived and indicated that the patient received 325 mg of aspirin and 2 sprays of nitroglycerin that improved his chest pain to 2 out of 10 in intensity. No associated symptoms of nausea vomiting or diaphoresis. He denies any shortness of breath. He has been compliant with all his medications. He is currently cehest pain free, no exertional symtpoms and stabld Past Medical History Home Meds Active Scripts Amlodipine Besylate* (Amlodipine Besylate*) 2.5 Mg Tablet, 2.5 MG PO DAILY for 30 Days, TAB Prov:SPEEDY BASS MD 02/21/19 Reported Medications Sennosides* (Senna Lax*) 8.6 Mg Tablet, 1 TAB PO DAILY, TAB 03/23/19 Insulin Lispro (Humalog) 100 Unit/1 Ml Cartridge, 0 SQ BID, EA 5-10 UNITS-SLIDING SCALE 03/23/19 Clopidogrel Bisulfate* (Clopidogrel Bisulfate*) 75 Mg Tablet, 75 MG PO DAILY, #30 TAB 03/23/19 Atorvastatin* (Atorvastatin*) 80 Mg Tablet, 80 MG PO QHS, #30 TAB 03/23/19 Metformin Hcl* (Metformin Hcl*) 1,000 Mg Tablet, 1000 MG PO WITH BREAKFAST DINNE, #60 TAB 03/23/19 Losartan Potassium* (Losartan Potassium*) 100 Mg Tablet, 100 MG PO DAILY, TAB 03/23/19 Carvedilol* (Carvedilol*) 25 Mg Tablet, 25 MG PO BID, #60 TAB 03/23/19 Aspirin* (Aspirin* EC) 81 Mg Tablet.dr, 81 MG PO DAILY, TAB 03/23/19 Furosemide* (Furosemide*) 40 Mg Tablet, 40 MG PO DAILY, TAB 03/23/19 Lorazepam* (Lorazepam*) 0.5 Mg Tablet, 0.5 MG PO HS PRN for ANXIETY, TAB 03/23/19 Insulin Glargine,Hum.rec.anlog (Basaglar Kwikpen U-100) 100 Unit/1 Ml Insuln.pen, 45 UNIT SC BID, EA 03/23/19 Discontinued Scripts Sulfamethoxazole/Trimethoprim* (Bactrim Ds* Tablet) 1 Each Tablet, 1 TAB PO BID for 4 Days, #8 TAB Prov:LEORA MARIA MD 03/29/19 Medications Current Medications Ondansetron HCl (Zofran Inj) 4 mg ER BRIDGE PRN IV NAUSEA/VOMITING; Start 04/16/19 at 12:00; Stop 04/17/19 at 11:59 Acetaminophen (Tylenol Tab) 650 mg ER BRIDGE PRN PO .MILD PAIN 1-3 OR TEMP; Start 04/16/19 at 12:00; Stop 04/17/19 at 11:59 IV Flush (NS 3 ml) 3 ml PER PROTOCOL IV ; Start 04/16/19 at 12:00 Acetaminophen/ Hydrocodone Bitart ([place] (5/325)) 2 tab Q6H PRN PO .SEVERE PAIN 7-10; Start 04/16/19 at 12:00 Miscellaneous Information 1 ea NOTE XX ; Start 04/16/19 at 12:30 Glucose (Glutose) 15 gm Q15M PRN PO DECREASED GLUCOSE; Start 04/16/19 at 12:30 Glucose (Glutose) 22.5 gm Q15M PRN PO DECREASED GLUCOSE; Start 04/16/19 at 12:30 Dextrose (D50w Syringe) 25 ml Q15M PRN IV DECREASED GLUCOSE; Start 04/16/19 at 12:30 Dextrose (D50w Syringe) 50 ml Q15M PRN IV DECREASED GLUCOSE; Start 04/16/19 at 12:30 Glucagon (Glucagen) 1 mg Q15M PRN IM DECREASED GLUCOSE; Start 04/16/19 at 12:30 Glucose (Glutose) 15 gm Q15M PRN BUCCAL DECREASED GLUCOSE; Start 04/16/19 at 12:30 Amlodipine Besylate (Norvasc) 2.5 mg DAILY PO ; Start 04/17/19 at 09:00 Aspirin (Halfprin) 81 mg DAILY PO ; Start 04/17/19 at 09:00 Atorvastatin Calcium (Lipitor) 80 mg QHS PO ; Start 04/16/19 at 21:00 Carvedilol (Coreg) 25 mg BID PO ; Start 04/16/19 at 21:00 Clopidogrel Bisulfate (plaVIX) 75 mg DAILY PO ; Start 04/17/19 at 09:00 Furosemide (Lasix) 40 mg DAILY PO ; Start 04/17/19 at 09:00 Losartan Potassium (Cozaar) 100 mg DAILY PO ; Start 04/17/19 at 09:00 Senna (Senokot) 1 tab DAILY PO ; Start 04/17/19 at 09:00 Insulin Glargine (Lantus) 13 units DAILY@2000 SC ; Start 04/16/19 at 20:00 Insulin Aspart (Novolog Insulin Pen) 6 unit WITH MEALS SC ; Start 04/16/19 at 18:00 Insulin Aspart (Novolog Insulin Pen) NOVOLOG *MODERATE* ALGORITHM WITH MEALS BEDTIME SC ; Start 04/16/19 at 18:00 Allergies: Coded Allergies: No Known Allergy (Unverified , 04/16/19) Past Surgical History Past Surgical Hx: angioplasty, coronary bypass surgery, other Social History Alcohol Use: none Smoking Status: Current every day smoker Drug Use: none Exam/Review of Systems Vital Signs Vitals Vital Signs Date Temp Pulse Resp B/P (MAP) Pulse Ox O2 O2 Flow FiO2 Time Delivery Rate 04/16/19 59 16:01 04/16/19 20 138/71 100 Nasal 2.0 14:44 (93) Cannula 04/16/19 98.2 10:38 Labs Result Diagram: 04/16/19 1052 04/16/19 1052 Results 24hrs Laboratory Tests Test 04/16/19 10:52 04/16/19 17:11 White Blood Count 9.1 Red Blood Count 4.21 L Hemoglobin 11.2 L Hematocrit 35.3 L Mean Corpuscular Volume 83.8 Mean Corpuscular Hemoglobin 26.6 L Mean Corpuscular Hemoglobin Concent 31.7 L Red Cell Distribution Width 15.5 H Platelet Count 206 # Mean Platelet Volume 11.8 H Immature Granulocytes % 0.300 Neutrophils % 68.9 Lymphocytes % 23.6 Monocytes % 6.1 Eosinophils % 0.8 Basophils % 0.3 Nucleated Red Blood Cells % 0.0 Immature Granulocytes # 0.030 Neutrophils # 6.2 Lymphocytes # 2.1 Monocytes # 0.6 Eosinophils # 0.1 Basophils # 0.0 Nucleated Red Blood Cells # 0.0 Prothrombin Time 13.2 Prothrombin Time Ratio 1.0 INR International Normalized Ratio 0.99 Activated Partial Thromboplast Time 31.0 Sodium Level 142 Potassium Level 4.0 Chloride Level 106 Carbon Dioxide Level 26 Anion Gap 10 Blood Urea Nitrogen 12 Creatinine 0.75 Est Glomerular Filtrat Rate mL/min > 60 Glucose Level 233 H Calcium Level 9.2 Total Bilirubin 0.6 Direct Bilirubin 0.00 Indirect Bilirubin 0.6 Aspartate Amino Transf (AST/SGOT) 23 Alanine Aminotransferase (ALT/SGPT) 26 Alkaline Phosphatase 66 Troponin I < 0.012 B-Type Natriuretic Peptide 1090 H Total Protein 7.0 Albumin 3.8 Globulin 3.20 Albumin/Globulin Ratio 1.18 Bedside Glucose 170 Medications Medications Current Medications Ondansetron HCl (Zofran Inj) 4 mg ER BRIDGE PRN IV NAUSEA/VOMITING; Start 04/16/19 at 12:00; Stop 04/17/19 at 11:59 Acetaminophen (Tylenol Tab) 650 mg ER BRIDGE PRN PO .MILD PAIN 1-3 OR TEMP; Start 04/16/19 at 12:00; Stop 04/17/19 at 11:59 IV Flush (NS 3 ml) 3 ml PER PROTOCOL IV ; Start 04/16/19 at 12:00 Acetaminophen/ Hydrocodone Bitart ([place] (5/325)) 2 tab Q6H PRN PO .SEVERE PAIN 7-10; Start 04/16/19 at 12:00 Miscellaneous Information 1 ea NOTE XX ; Start 04/16/19 at 12:30 Glucose (Glutose) 15 gm Q15M PRN PO DECREASED GLUCOSE; Start 04/16/19 at 12:30 Glucose (Glutose) 22.5 gm Q15M PRN PO DECREASED GLUCOSE; Start 04/16/19 at 12:30 Dextrose (D50w Syringe) 25 ml Q15M PRN IV DECREASED GLUCOSE; Start 04/16/19 at 12:30 Dextrose (D50w Syringe) 50 ml Q15M PRN IV DECREASED GLUCOSE; Start 04/16/19 at 12:30 Glucagon (Glucagen) 1 mg Q15M PRN IM DECREASED GLUCOSE; Start 04/16/19 at 12:30 Glucose (Glutose) 15 gm Q15M PRN BUCCAL DECREASED GLUCOSE; Start 04/16/19 at 12:30 Amlodipine Besylate (Norvasc) 2.5 mg DAILY PO ; Start 04/17/19 at 09:00 Aspirin (Halfprin) 81 mg DAILY PO ; Start 04/17/19 at 09:00 Atorvastatin Calcium (Lipitor) 80 mg QHS PO ; Start 04/16/19 at 21:00 Carvedilol (Coreg) 25 mg BID PO ; Start 04/16/19 at 21:00 Clopidogrel Bisulfate (plaVIX) 75 mg DAILY PO ; Start 04/17/19 at 09:00 Furosemide (Lasix) 40 mg DAILY PO ; Start 04/17/19 at 09:00 Losartan Potassium (Cozaar) 100 mg DAILY PO ; Start 04/17/19 at 09:00 Senna (Senokot) 1 tab DAILY PO ; Start 04/17/19 at 09:00 Insulin Glargine (Lantus) 13 units DAILY@2000 SC ; Start 04/16/19 at 20:00 Insulin Aspart (Novolog Insulin Pen) 6 unit WITH MEALS SC ; Start 04/16/19 at 18:00 Insulin Aspart (Novolog Insulin Pen) NOVOLOG *MODERATE* ALGORITHM WITH MEALS BEDTIME SC ; Start 04/16/19 at 18:00 MICHAEL SMALLS MD Apr 16, 2019 17:25
[2019-04-16 17:37] VITALS: Ht 177.8 cm; Wt 88.0 kg
[2019-04-16 20:00] VITALS: BP 137/74; PULSE 71; PULSE 90; RESP 18
[2019-04-16] MEDS ORDERED: INSULIN GLARGINE [LANTus] (100 UNITS/ML) SYG SC SCH ×3 (20:00)
[2019-04-16] MEDS: morphine 2 MG INJ IV PRN (20:44)
[2019-04-16] MEDS ORDERED: LORAZEPAM 1 MG TAB PO SCH (21:00)
[2019-04-16] MEDS ORDERED: ATORVASTATIN 80 MG TAB PO SCH (21:00)
[2019-04-17] VITALS: BP 126/62; PULSE 61; PULSE 69; RESP 18
[2019-04-17 04:00] VITALS: BP 147/72; PULSE 66; PULSE 68; RESP 18
[2019-04-17] MEDS: morphine 2 MG INJ IV PRN ×2 (04:00→08:40)
[2019-04-17 08:01] VITALS: PULSE 72
[2019-04-17] MEDS: INSULIN ASPART [NOVOLOG] 3 ML PEN SC SCH ×4 (08:01→11:58)
[2019-04-17 08:05] VITALS: BP 135/70; PULSE 65; RESP 20
[2019-04-17] MEDS ORDERED: ASPIRIN (EC) 81 MG TAB PO SCH (09:00)
[2019-04-17] MEDS ORDERED: FUROSEMIDE 40 MG TAB PO SCH (09:00)
[2019-04-17] MEDS ORDERED: LOSARTAN 50 MG TAB PO SCH (09:00)
[2019-04-17] MEDS ORDERED: SENNA TAB PO SCH (09:00)
[2019-04-17] MEDS ORDERED: AMLODIPINE 2.5 MG TAB PO SCH (09:00)
[2019-04-17] MEDS ORDERED: CLOPIDOGREL 75 MG TAB PO SCH (09:00)
--- NOTE | 2019-04-17 11:22 | CONS ---
Consultation Date/Type/Reason Admit Date/Time Apr 16, 2019 at 11:49 Initial Consult Date Type of Consult Cardiology Date/Time of Note DATE: 04/17/19 TIME: 11:21 24 HR Interval Summary Free Text/Dictation Chest pain CABG S/P LLE BKA DM HTN 02/18 EF 25-30% - Ischemic CM troponin negative xx 3 no further CP further work up if recurrent pain -Cont cv meds -no active CHF Exam/Review of Systems Vital Signs Vitals Vital Signs Date Temp Pulse Resp B/P (MAP) Pulse Ox O2 O2 Flow FiO2 Time Delivery Rate 04/17/19 98.4 65 20 135/70 97 Room Air 08:05 (91) 04/16/19 2.0 14:44 Exam Constitutional: alert, oriented Respiratory: clear to auscultation Cardiovascular: regular rate and rhythm Labs Result Diagram: 04/17/19 0502 04/17/19 0502 Results 24hrs Laboratory Tests Test 04/16/19 17:11 04/16/19 17:27 04/16/19 20:42 04/16/19 22:16 Bedside Glucose 170 179 Creatine Kinase 151 116 Creatine Kinase 1.7 1.7 Index Creatinine Kinase MB 2.56 H 1.97 (Mass) Troponin I < 0.012 < 0.012 Test 04/17/19 05:02 04/17/19 07:56 White Blood Count 8.6 Red Blood Count 4.24 L Hemoglobin 11.2 L Hematocrit 36.5 L Mean Corpuscular 86.1 Volume Mean Corpuscular 26.4 L Hemoglobin Mean Corpuscular 30.7 L Hemoglobin Concent Red Cell 15.5 H Distribution Width Platelet Count 166 Mean Platelet Volume 11.5 H Immature 0.500 H Granulocytes % Neutrophils % 62.9 Lymphocytes % 29.1 Monocytes % 6.5 Eosinophils % 0.8 Basophils % 0.2 Nucleated Red Blood 0.0 Cells % Immature 0.040 H Granulocytes # Neutrophils # 5.4 Lymphocytes # 2.5 Monocytes # 0.6 Eosinophils # 0.1 Basophils # 0.0 Nucleated Red Blood 0.0 Cells # Sodium Level 141 Potassium Level 4.6 Chloride Level 106 Carbon Dioxide Level 30 Anion Gap 5 Blood Urea Nitrogen 20 Creatinine 0.85 Est Glomerular > 60 Filtrat Rate mL/min Glucose Level 194 Hemoglobin A1c 8.6 H Calcium Level 8.9 Total Bilirubin 0.5 Direct Bilirubin 0.00 Indirect Bilirubin 0.5 Aspartate Amino 21 Transf (AST/SGOT) Alanine 21 Aminotransferase (AL T/SGPT) Alkaline Phosphatase 62 Total Protein 6.8 Albumin 3.7 Globulin 3.10 Albumin/Globulin 1.19 Ratio Bedside Glucose 187 Medications Medications Current Medications Ondansetron HCl (Zofran Inj) 4 mg ER BRIDGE PRN IV NAUSEA/VOMITING; Start 04/16/19 at 12:00; Stop 04/17/19 at 11:59 Acetaminophen (Tylenol Tab) 650 mg ER BRIDGE PRN PO .MILD PAIN 1-3 OR TEMP; Start 04/16/19 at 12:00; Stop 04/17/19 at 11:59 IV Flush (NS 3 ml) 3 ml PER PROTOCOL IV ; Start 04/16/19 at 12:00 Acetaminophen/ Hydrocodone Bitart ([place] (5/325)) 2 tab Q6H PRN PO .SEVERE PAIN 7-10; Start 04/16/19 at 12:00 Miscellaneous Information 1 ea NOTE XX ; Start 04/16/19 at 12:30 Glucose (Glutose) 15 gm Q15M PRN PO DECREASED GLUCOSE; Start 04/16/19 at 12:30 Glucose (Glutose) 22.5 gm Q15M PRN PO DECREASED GLUCOSE; Start 04/16/19 at 12:30 Dextrose (D50w Syringe) 25 ml Q15M PRN IV DECREASED GLUCOSE; Start 04/16/19 at 12:30 Dextrose (D50w Syringe) 50 ml Q15M PRN IV DECREASED GLUCOSE; Start 04/16/19 at 12:30 Glucagon (Glucagen) 1 mg Q15M PRN IM DECREASED GLUCOSE; Start 04/16/19 at 12:30 Glucose (Glutose) 15 gm Q15M PRN BUCCAL DECREASED GLUCOSE; Start 04/16/19 at 12:30 Amlodipine Besylate (Norvasc) 2.5 mg DAILY PO Last administered on 04/17/19at 08:36; Admin Dose 2.5 MG; Start 04/17/19 at 09:00 Aspirin (Halfprin) 81 mg DAILY PO Last administered on 04/17/19at 08:36; Admin Dose 81 MG; Start 04/17/19 at 09:00 Atorvastatin Calcium (Lipitor) 80 mg QHS PO Last administered on 04/16/19at 20:40; Admin Dose 80 MG; Start 04/16/19 at 21:00 Carvedilol (Coreg) 25 mg BID PO Last administered on 04/17/19 08:37; Admin Dose 25 MG; Start 04/16/19 at 21:00 Clopidogrel Bisulfate (plaVIX) 75 mg DAILY PO Last administered on 04/17/19 08:36; Admin Dose 75 MG; Start 04/17/19 at 09:00 Furosemide (Lasix) 40 mg DAILY PO Last administered on 04/17/19 08:36; Admin Dose 40 MG; Start 04/17/19 at 09:00 Losartan Potassium (Cozaar) 100 mg DAILY PO Last administered on 04/17/19 08:35; Admin Dose 100 MG; Start 04/17/19 at 09:00 Senna (Senokot) 1 tab DAILY PO Last administered on 04/17/19 08:35; Admin Dose 1 TAB; Start 04/17/19 at 09:00 Insulin Glargine (Lantus) 13 units DAILY@2000 SC Last administered on 04/16/19 21:23; Admin Dose 13 UNITS; Start 04/16/19 at 20:00 Insulin Aspart (Novolog Insulin Pen) 6 unit WITH MEALS SC Last administered on 04/17/19 08:01; Admin Dose 6 UNIT; Start 04/16/19 at 18:00 Insulin Aspart (Novolog Insulin Pen) NOVOLOG *MODERATE* ALGORITHM WITH MEALS BEDTIME SC Last administered on 04/17/19 08:01; Admin Dose 4 UNIT; Start 04/16/19 at 18:00 Lorazepam (Ativan) 1 mg HS PO Last administered on 04/17/19 03:24; Admin Dose 1 MG; Start 04/16/19 at 21:00 Morphine Sulfate (morphine) 2 mg Q4H PRN IV SEVERE PAIN LEVEL 7-10 Last administered on 04/17/19 08:40; Admin Dose 2 MG; Start 04/16/19 at 20:30 SHIELA HYDE MD Apr 17, 2019 11:22
[2019-04-17 11:56] VITALS: BP 157/70; PULSE 63; RESP 20
[2019-04-17 12:01] VITALS: PULSE 75
--- NOTE | 2019-04-17 12:38 | PDOCDIS ---
Discharge Instructions DIAGNOSIS Discharge Diagnosis Chest pain CONDITION [id number] Patient Condition: [id number] Stable FOLLOW UP/APPOINTMENTS Follow-up Plan Continue your medications as prescribed Make an appointment to see Dr Borges in clinic LEORA MARIA MD Apr 17, 2019 12:38
--- NOTE | 2019-04-17 13:27 | DS ---
Date/Time of Note Date/Time of Note DATE: 04/17/19 TIME: 13:26 Discharge Summary Admission/Discharge Info Admit Date/Time Apr 16, 2019 at 11:49 Discharge Date/Time Discharge Diagnosis Chest pain Patient Condition: Stable Hx of Present Illness 64 yo male with CAD s/p CABG, PAD s/p BKA, DMII presents with CP Adherent to DAPT and all meds he says. Today 5 am awoken from sleep wtih CP. Has persisted. A bit less. Located over left chest. No worsened by anything he can identify. No cough, no fevers or chills. No angina. Has felt well up until this morning. No SOB. No edema or orthopena Hospital Course Well appearing no distress RRR Flat neck veins CTAB Soft nt nd s/p L BKA No edema A/P: 64 yo male with h/o CAD s/p CABG, PAD s/p BKA, DMII who presnets with chest pain syndrome - ACS was ruled out with negative biomarkers and EKG - Primary sales host notifed to admission, cleared patient for discharge - [facility] Home Meds Active Scripts Amlodipine Besylate* (Amlodipine Besylate*) 2.5 Mg Tablet, 2.5 MG PO DAILY for 30 Days, TAB Prov:SPEEDY BASS MD 02/21/19 Reported Medications Sennosides* (Senna Lax*) 8.6 Mg Tablet, 1 TAB PO DAILY, TAB 03/23/19 Insulin Lispro (Humalog) 100 Unit/1 Ml Cartridge, 0 SQ BID, EA 5-10 UNITS-SLIDING SCALE 03/23/19 Clopidogrel Bisulfate* (Clopidogrel Bisulfate*) 75 Mg Tablet, 75 MG PO DAILY, #30 TAB 03/23/19 Atorvastatin* (Atorvastatin*) 80 Mg Tablet, 80 MG PO QHS, #30 TAB 03/23/19 Metformin Hcl* (Metformin Hcl*) 1,000 Mg Tablet, 1000 MG PO WITH BREAKFAST DINNE, #60 TAB 03/23/19 Losartan Potassium* (Losartan Potassium*) 100 Mg Tablet, 100 MG PO DAILY, TAB 03/23/19 Carvedilol* (Carvedilol*) 25 Mg Tablet, 25 MG PO BID, #60 TAB 03/23/19 Aspirin* (Aspirin* EC) 81 Mg Tablet.dr, 81 MG PO DAILY, TAB 03/23/19 Furosemide* (Furosemide*) 40 Mg Tablet, 40 MG PO DAILY, TAB 03/23/19 Lorazepam* (Lorazepam*) 0.5 Mg Tablet, 0.5 MG PO HS PRN for ANXIETY, TAB 03/23/19 Insulin Glargine,Hum.rec.anlog (Basaglar Kwikpen U-100) 100 Unit/1 Ml Insuln.pen, 45 UNIT SC BID, EA 03/23/19 Discontinued Scripts Sulfamethoxazole/Trimethoprim* (Bactrim Ds* Tablet) 1 Each Tablet, 1 TAB PO BID for 4 Days, #8 TAB Prov:LEORA MARIA MD 03/29/19 Follow-up Plan Continue your medications as prescribed Make an appointment to see Dr Borges in clinic Primary Care Provider [facility] Pending Labs Laboratory Tests Test 04/16/19 17:11 04/16/19 17:27 04/16/19 20:42 04/16/19 22:16 Bedside 170 179 Glucose mg/dL (70-220) mg/dL (70-220) Creatine 151 116 Kinase IU/L (23-200) IU/L (23-200) Creatine Kinase 1.7 1.7 Index Creatinine 2.56 1.97 Kinase MB ng/ml (0.0-2.4 ng/ml (0.0-2.4 (Mass) ) ) Troponin I < 0.012 < 0.012 ng/ml (0.000-0 ng/ml (0.000-0 .120) .120) Test 04/17/19 05:02 04/17/19 07:56 04/17/19 11:47 White Blood 8.6 Count 10^3/ul (4.8-10 .8) Red Blood 4.24 Count 10^6/ul (4.70-6 .10) Hemoglobin 11.2 g/dl (14.0-18.0 ) Hematocrit 36.5 % (42.0-52.0) Mean 86.1 Corpuscular fl (82.0-101.0) Volume Mean 26.4 Corpuscular pg (29.0-33.0) Hemoglobin Mean 30.7 Corpuscular g/dl (32.0-37.0 Hemoglobin Conc ) ent Red Cell 15.5 Distribution % (11.5-14.5) Width Platelet Count 166 10^3/UL (140-41 5) Mean Platelet 11.5 Volume fl (7.4-10.4) Immature 0.500 Granulocytes % % (0.001-0.429) Neutrophils % 62.9 % (39.0-77.0) Lymphocytes % 29.1 % (15.0-51.0) Monocytes % 6.5 % (0.0-11.0) Eosinophils % 0.8 % (0.0-7.0) Basophils % 0.2 % (0.0-2.0) Nucleated Red 0.0 Blood Cells % /100WBC (0.0-0. 0) Immature 0.040 Granulocytes # 10^3/ul (0.0-0. 031) Neutrophils # 5.4 10^3/ul (1.6-7. 5) Lymphocytes # 2.5 10^3/ul (0.8-2. 9) Monocytes # 0.6 10^3/ul (0.3-0. 9) Eosinophils # 0.1 10^3/ul (0.0-0. 5) Basophils # 0.0 10^3/ul (0.0-0. 1) Nucleated Red 0.0 Blood Cells # 10^3/ul (0.0-0. 0) Sodium Level 141 mmol/L (135-144 ) Potassium 4.6 Level mmol/L (3.5-5.1 ) Chloride Level 106 mmol/L (97-110) Carbon Dioxide 30 Level mmol/L (21-31) Anion Gap 5 (5-13) Blood Urea 20 mg/dl (7-20) Nitrogen Creatinine 0.85 mg/dl (0.61-1.2 4) Est Glomerular > 60 Filtrat mL/min (>60) Rate mL/min Glucose Level 194 mg/dl (70-220) Hemoglobin A1c 8.6 % (0-5.9) Calcium Level 8.9 mg/dl (8.4-10.2 ) Total 0.5 Bilirubin mg/dl (0.2-1.3) Direct 0.00 Bilirubin mg/dl (0.00-0.2 0) Indirect 0.5 Bilirubin mg/dl (0-1.1) Aspartate Amino 21 IU/L (15-46) Transf (AST/SGO T) Alanine 21 IU/L (13-69) Aminotransferas e (ALT/SGPT) Alkaline 62 Phosphatase IU/L (42-121) Total Protein 6.8 g/dl (6.1-8.1) Albumin 3.7 g/dl (3.3-4.9) Globulin 3.10 g/dl (1.3-3.2) Albumin/Globuli 1.19 n Ratio Bedside 187 208 Glucose mg/dL (70-220) mg/dL (70-220) LEORA MARIA MD Apr 17, 2019 13:27
== END 2019-04-17 13:30 | disposition home or self-care (01) ==
LOC: E/R 10:36 → 6WM 11:49 → SUATTDRO 11:57 → 6WM 16:10
PROVIDERS: ADMIT Internal Medicine; ATTEND Internal Medicine
DX: R07.9 Chest pain, unspecified (principal); E11.9 Type 2 diabetes mellitus without complications; Z79.4 Long term (current) use of insulin; I10 Essential (primary) hypertension; I25.10 Atherosclerotic heart disease of native coronary artery without angina pectoris; Z95.1 Presence of aortocoronary bypass graft; Z79.82 Long term (current) use of aspirin; Z89.512 Acquired absence of left leg below knee
CPT/HCPCS: 71045; 80053; 82550; 82553; 82962; 83036; 83880; 84484; 85025; 85610; 85730; 93005; 96374; 96375; J1815; J2060; J2270; J2405; Z7500; Z7502; Z7610; G0378

== ENCOUNTER 2019-04-24 06:47 | Inpatient (IN) | payer OTHER ==
[~2019-04-24] VITALS: Ht 170.2 cm; Wt 95.7 kg
[~2019-04-24 06:47] MED LIST changes: -SULF1TAB31 PO
[2019-04-24 06:53] VITALS: Ht 170.2 cm; Wt 95.7 kg
--- NOTE | 2019-04-24 07:07 | ERD ---
ER Documentation Chief Complaint Chief Complaint CHEST PAIN STARTING THIS MORNING AT 5AM HPI This is a 64-year-old male with a past medical history of hypertension, hyperlipidemia, diabetes, coronary artery disease, previous NH, CABG who is presenting with mid substernal nonradiating pressure-like moderate chest pain with shortness of breath and diaphoresis, beginning this morning at around 5 AM. The patient does not endorse any alleviating or exacerbating factors. It was not exertional in nature. He does not endorse lightheadedness or dizziness. He does not endorse nausea or vomiting. He does not report palpitations. The patient called an ambulance. He received aspirin and nitroglycerin prior to arrival. The patient does endorse improvement of his pain after being given the nitroglycerin. The patient's CABG was performed by Dr. Fernandez. The patient's probe operator is Dr. Warner. The patient denies feeling sick recently. The patient denies fever or chills. The patient has had no headache or vision changes. The patient does not endorse neck or back pain. The patient denies abdominal pain. The patient denies changes to bowel movements or urination. The patient has had no focal deficits. The patient has had no weakness or numbness or tingling to the face or extremities. ROS All systems reviewed and are negative except as per history of present illness. Medications Home Meds Active Scripts Amlodipine Besylate* (Amlodipine Besylate*) 2.5 Mg Tablet, 2.5 MG PO DAILY for 30 Days, TAB Prov:SPEEDY BASS MD 02/21/19 Reported Medications Sennosides* (Senna Lax*) 8.6 Mg Tablet, 1 TAB PO DAILY, TAB 03/23/19 Insulin Lispro (Humalog) 100 Unit/1 Ml Cartridge, 0 SQ BID, EA 5-10 UNITS-SLIDING SCALE 03/23/19 Clopidogrel Bisulfate* (Clopidogrel Bisulfate*) 75 Mg Tablet, 75 MG PO DAILY, #30 TAB 03/23/19 Atorvastatin* (Atorvastatin*) 80 Mg Tablet, 80 MG PO QHS, #30 TAB 03/23/19 Metformin Hcl* (Metformin Hcl*) 1,000 Mg Tablet, 1000 MG PO WITH BREAKFAST DINNE, #60 TAB 03/23/19 Losartan Potassium* (Losartan Potassium*) 100 Mg Tablet, 100 MG PO DAILY, TAB 03/23/19 Carvedilol* (Carvedilol*) 25 Mg Tablet, 25 MG PO BID, #60 TAB 03/23/19 Aspirin* (Aspirin* EC) 81 Mg Tablet.dr, 81 MG PO DAILY, TAB 03/23/19 Furosemide* (Furosemide*) 40 Mg Tablet, 40 MG PO DAILY, TAB 03/23/19 Lorazepam* (Lorazepam*) 0.5 Mg Tablet, 0.5 MG PO HS PRN for ANXIETY, TAB 03/23/19 Insulin Glargine,Hum.rec.anlog (Basaglar Kwikpen U-100) 100 Unit/1 Ml Insuln.pen, 45 UNIT SC BID, EA 03/23/19 Allergies Allergies: Coded Allergies: No Known Allergy (Unverified , 04/24/19) PMhx/Soc History of Surgery: Yes (L BKA, CABG) Anesthesia Reaction: No Hx Neurological Disorder: No Hx Respiratory Disorders: No Hx Cardiac Disorders: Yes (Hypertension, hyperlipidemia, diabetes, coronary art airam disease, heart failure) Hx Psychiatric Problems: No Hx Miscellaneous Medical Probl: No Hx Alcohol Use: No Hx Substance Use: No Hx Tobacco Use: Yes FmHx Family History: diabetes Physical Exam Vitals Vital Signs Date Temp Pulse Resp B/P (MAP) Pulse Ox O2 O2 Flow FiO2 Time Delivery Rate 04/24/19 61 16 139/73 100 Nasal 2.0 09:21 (95) Cannula 04/24/19 Nasal 2 07:08 Cannula 04/24/19 98.3 68 16 136/70 96 06:53 (92) Physical Exam Const: No apparent distress, well-developed, well-nourished Head: Normocephalic, Atraumatic Eyes: Normal Conjunctiva. Extraocular movements grossly intact ENT: Normal External Ears, Nose and Mouth. Neck: Full range of motion. No meningismus. Resp: Bibasilar rales. No wheezes or rhonchi Cardio: Regular rate and rhythm. No murmurs, rubs or gallops. Sternotomy scar present. Abd: Soft, non tender, non distended. Normal bowel sounds Skin: No petechiae or rashes Back: No midline tenderness. No CVA tenderness Ext: No cyanosis, or edema. Left BKA. Neur: Awake and alert, oriented 4. No facial droop. Normal strength, sensation and coordination. Psych: Anxious Result Diagram: 04/24/19 0650 04/24/19 0650 Results 24 hrs Laboratory Tests Test 04/24/19 06:50 White Blood Count 8.5 10^3/ul Red Blood Count 4.41 10^6/ul Hemoglobin 11.8 g/dl Hematocrit 37.3 % Mean Corpuscular Volume 84.6 fl Mean Corpuscular Hemoglobin 26.8 pg Mean Corpuscular Hemoglobin Concent 31.6 g/dl Red Cell Distribution Width 15.3 % Platelet Count 219 10^3/UL Mean Platelet Volume 11.2 fl Immature Granulocytes % 0.400 % Neutrophils % 59.6 % Lymphocytes % 31.6 % Monocytes % 6.5 % Eosinophils % 1.4 % Basophils % 0.5 % Nucleated Red Blood Cells % 0.0 /100WBC Immature Granulocytes # 0.030 10^3/ul Neutrophils # 5.1 10^3/ul Lymphocytes # 2.7 10^3/ul Monocytes # 0.6 10^3/ul Eosinophils # 0.1 10^3/ul Basophils # 0.0 10^3/ul Nucleated Red Blood Cells # 0.0 10^3/ul Prothrombin Time 12.5 Sec Prothrombin Time Ratio 1.0 INR International Normalized Ratio 0.92 Sodium Level 144 mmol/L Potassium Level 3.9 mmol/L Chloride Level 107 mmol/L Carbon Dioxide Level 25 mmol/L Anion Gap 12 Blood Urea Nitrogen 18 mg/dl Creatinine 0.82 mg/dl Est Glomerular Filtrat Rate mL/min > 60 mL/min Glucose Level 202 mg/dl Calcium Level 9.4 mg/dl Troponin I < 0.012 ng/ml B-Type Natriuretic Peptide 1020 PG/ML Current Medications Medications Dose Sig/Masha Start Time Status Last (Trade) Ordered Route PRN Stop Time Admin Dose Reason Admin Ondansetron 4 mg ER BRIDGE 04/24/19 HCl (Zofran PRN IV 09:30 Inj) NAUSEA/VOMITI 04/25/19 09:29 NG 650 mg ER BRIDGE 04/24/19 04/24/19 Acetaminophen PRN PO 09:30 09:25 (Tylenol .MILD PAIN 04/25/19 09:29 Tab) 1-3 OR TEMP Morphine 4 mg ONCE STAT 04/24/19 DC 04/24/19 Sulfate IV 10:05 10:37 (morphine) 04/24/19 10:06 Ondansetron 4 mg ONCE STAT 04/24/19 DC HCl (Zofran IV 10:05 Inj) 04/24/19 10:06 Procedures/[facility] MDM The patient's presentation warrants further investigation. Previous medical records, if available, were reviewed. LABS The patient's laboratory testing was obtained and reviewed. No emergent treatment was required unless described below. CBC: Normocytic anemia, not emergent. No E/o systemic infection or thrombocytopenia Chemistry: No E/o severe acidosis or alkalosis or renal failure or diabetic ketoacidosis PT/INR: No E/o significant coagulopathy Troponin: No E/o acute ischemia BNP: Likely chronic heart failure EKG EKG read by me: Rate/Rhythm: Regular rate and rhythm at a rate of 78 bpm Intervals: Normal [place]: Normal Impression: T wave inversions in the lateral leads concerning for age- indeterminate ischemia. No arrhythmia. No STEMI. IMAGING Imaging and Radiology interpretation reviewed. CXR 1V Interpreted by me Soft Tissue: No acute abnormalities Bones: No acute abnormalities Mediastinum/Cardiac Silhouette: Unremarkable. No widened mediastinum. Lungs: No acute abnormalities. Normal pulmonary vasculature. No pneumothorax. No pulmonary edema. Clear costal diaphragmatic angles. No pleural effusions. No opacity or consolidations concerning for pneumonia. TREATMENT/DISPOSITION The patient presents for chest pain. The patient has a severe cardiac history and does have EKG findings concerning for age-indeterminate lateral ischemia. T he patient's troponin is negative. That said, the patient's heart score is greater than 3. The patient was given aspirin and nitroglycerin prior to arrival to the emergency department. I do feel that the patient requires further evaluation and management in the hospital. The patient's chest xray does not reveal pneumonia or pneumothorax or pleural effusions or pulmonary edema. The patient does not have a widened mediastinum and does not have signs or symptoms concerning for thoracic aortic aneurysm or dissection. The patient does not have pneumomediastinum or signs concerning for esophageal tear or rupture. The patient has no clinical or radiographic signs of pericardial effusion or tamponade. The patient does not have pneumoperitoneum and I have decreased suspicion of viscus perforation as possible referred pain. The patient does not have a history of heart failure and I have low suspicion for this. The patient does not have a diagnosis of COPD and is not wheezing today. The patient is not tachypneic or hypoxic. The patient is breathing comfortably and without pleuritic pain. The patient is not on hormonal therapy. The patient has no history of clotting or bleeding disorders. The patient has no calf tenderness. The patient has had no hemoptysis. I have decreased suspicion for PE. ADMISSION At this time, I feel that the patient requires admission for further evaluation and management. The patient will be admitted to [Panel] in accordance with the patient's insurance. The patient was accepted to telemetry by Dr. Austin at 852AM. Disclaimer: Inadvertent spelling and grammatical errors are likely due to EHR/dictation software use and do not reflect on the overall quality of patient care. Note that the electronic time recorded on this note does not necessarily reflect the actual time of the patient encounter. Departure Diagnosis: Primary Impression: Chest pain Chest pain type: unspecified Qualified Codes: R07.9 - Chest pain, unspecified Additional Impressions: Normocytic anemia Elevated brain natriuretic peptide (BNP) level Condition: Serious CHOCO JOHNSON MD Apr 24, 2019 07:07
[2019-04-24] MEDS ORDERED: ONDANSETRON 4 MG INJ IV PRN ×2 (09:30→14:30)
[2019-04-24] MEDS ORDERED: ACETAMINOPHEN 325 MG TAB PO PRN ×2 (09:30→14:30)
[2019-04-24] MEDS ORDERED: ONDANSETRON 4 MG INJ IV STA (10:05)
[2019-04-24] MEDS ORDERED: morphine 4 MG/ML VIAL IV STA (10:05)
[2019-04-24] MEDS ORDERED: ALBUTEROL/IPRATROPIUM (NEB) 3 ML AMP HHN PRN (14:30)
[2019-04-24] MEDS ORDERED: NACL 0.9% 3 ML SYG IV SCH (14:30)
[2019-04-24] MEDS ORDERED: HYDROCODONE/APAP (5/325) TAB PO PRN (14:30)
[2019-04-24] MEDS ORDERED: DOCUSATE SODIUM 100 MG CAP PO PRN (14:30)
[2019-04-24] MEDS ORDERED: LORAZEPAM 0.5 MG TAB PO PRN (14:30)
[2019-04-24] MEDS ORDERED: MAGNESIUM HYDROXIDE 30ML CUP PO PRN (14:30)
[2019-04-24] MEDS ORDERED: LORAZEPAM 2 MG INJ IV PRN (14:30)
--- NOTE | 2019-04-24 14:45 | HP ---
Date/Time of Note Date/Time of Note DATE: 04/24/19 TIME: 14:37 Assessment/Plan VTE Prophylaxis Pharmacological prophylaxis: LMWH Lines/Catheters IV [facility]ter Type [facility]from [facility] [place] Assessment/Plan Hospital Course Assessment and plan 1. Chest pain. Suspect secondary to hypertension. French Binder consulted. Follow-up on serial troponins. We will optimize with his cardiovascular medications. 2. History of CAD status post CABG. Resume on DAPT and statin medication 3. History of PAD status post left BKA. Patient reports he is plan for diagnostic study on his right lower extremity. Will notify patient's vascular surgeon. 4. Hypertension. Improved. Resume antihypertensives. adjust prn 5. History of CHF. Continue on beta-jerrado. 6. Diabetes. Continue on insulin regimen. 7. Anxiety. Will provide with Ativan PRN. Discussed POC with Dr. Moody Result Diagram: 04/24/19 0650 04/24/19 0650 Results 24hrs Laboratory Tests Test 04/24/19 06:50 White Blood Count 8.5 Red Blood Count 4.41 L Hemoglobin 11.8 L Hematocrit 37.3 L Mean Corpuscular Volume 84.6 Mean Corpuscular Hemoglobin 26.8 L Mean Corpuscular Hemoglobin Concent 31.6 L Red Cell Distribution Width 15.3 H Platelet Count 219 # Mean Platelet Volume 11.2 H Immature Granulocytes % 0.400 Neutrophils % 59.6 Lymphocytes % 31.6 Monocytes % 6.5 Eosinophils % 1.4 Basophils % 0.5 Nucleated Red Blood Cells % 0.0 Immature Granulocytes # 0.030 Neutrophils # 5.1 Lymphocytes # 2.7 Monocytes # 0.6 Eosinophils # 0.1 Basophils # 0.0 Nucleated Red Blood Cells # 0.0 Prothrombin Time 12.5 Prothrombin Time Ratio 1.0 INR International Normalized Ratio 0.92 Sodium Level 144 Potassium Level 3.9 Chloride Level 107 Carbon Dioxide Level 25 Anion Gap 12 Blood Urea Nitrogen 18 Creatinine 0.82 Est Glomerular Filtrat Rate mL/min > 60 Glucose Level 202 Calcium Level 9.4 Troponin I < 0.012 B-Type Natriuretic Peptide 1020 H HPI/ROS Admit Date/Time Admit Date/Time Hx of Present Illness This is a 64-year-old male with extensive history of coronary artery disease disease status post CABG, hypertension, CHF, diabetes, PAD status post left BKA, came to the hospital due to reports of chest pain. Of note patient was recently admitted and discharged on April 17, 2019 for similar issues of chest pain. Patient does report that at 5 AM he started to have some chest discomfort and stated that his blood pressure was 220/108. He also reports having some numbness feeling on the chest. He also had some increased shortness of breath with diaphoresis. As such was brought to the hospital for further evaluation. Reportedly had nitro on the field with some alleviation. BNP was 1020. No STEMI noted on EKG. First troponin was negative. Currently the patient is seen in interview alert and oriented. Reports less chest pain at this time. Reports better breathing as well. Family remains at bedside. Chest imaging with no acute cardiopulmonary process. We will evaluate him for the aformentiond issues. ROS 12 point review of systems obtained and entirely negative except as mentioned in the history of present illness PMH/Family/Social Past Medical History Medical/surgical history 1. CAD status post CABG 2. Hypertension 3. CHF 4 prediabetes 5. PAD status post left BKA 6. History of cigarette smoking Medications Current Medications Ondansetron HCl (Zofran Inj) 4 mg ER BRIDGE PRN IV NAUSEA/VOMITING; Start 04/24/19 at 09:30; Stop 04/25/19 at 09:29 Acetaminophen (Tylenol Tab) 650 mg ER BRIDGE PRN PO .MILD PAIN 1-3 OR TEMP Last administered on 04/24/19at 09:25; Admin Dose 650 MG; Start 04/24/19 at 09:30; Stop 04/25/19 at 09:29 IV Flush (NS 3 ml) 3 ml PER PROTOCOL IV ; Start 04/24/19 at 14:30; Status UNV Ondansetron HCl (Zofran Inj) 4 mg Q6H PRN IV NAUSEA/VOMITING; Start 04/24/19 at 14:30; Status UNV Acetaminophen (Tylenol Tab) 650 mg Q6H PRN PO .PAIN 1-3 OR TEMP; Start 04/24/19 at 14:30; Status UNV Acetaminophen/ Hydrocodone Bitart ([place] (5/325)) 1 tab Q6H PRN PO .MOD PAIN 4- 6; Start 04/24/19 at 14:30; Status UNV Morphine Sulfate (morphine) 2 mg Q4H PRN IV .SEVERE PAIN 7-10; Start 04/24/19 at 14:30; Status UNV Docusate Sodium (Colace) 100 mg Q12H PRN PO .CONSTIPATION; Start 04/24/19 at 14:30; Status UNV Magnesium Hydroxide (Milk Of Mag) 30 ml DAILY PRN PO .CONSTIPATION; Start 04/24/19 at 14:30; Status UNV Famotidine (Pepcid) 20 mg Q12 PO ; Start 04/24/19 at 21:00; Status UNV Lorazepam (Ativan) 0.5 mg Q6H PRN IV ANXIETY; Start 04/24/19 at 14:30; Status UNV Albuterol/ Ipratropium (Duoneb) 3 ml Q4H RESP THERAPY PRN HHN SHORTNESS OF BREATH; Start 04/24/19 at 14:30; Status UNV Nitroglycerin (Nitroglycerin (Sl Tab) 0.4 Mg) 1 tab Q5M PRN SL ANGINA; Start 04/24/19 at 14:30; Status UNV Aspirin (Halfprin) 162 mg DAILY PO ; Start 04/25/19 at 09:00; Status UNV Atorvastatin Calcium (Lipitor) 80 mg QHS PO ; Start 04/24/19 at 21:00; Status UNV Carvedilol (Coreg) 25 mg BID PO ; Start 04/24/19 at 21:00; Status UNV Clopidogrel Bisulfate (plaVIX) 75 mg DAILY PO ; Start 04/25/19 at 09:00; Status UNV Insulin Glargine (Lantus) 45 unit BID SC ; Start 04/24/19 at 21:00; Status UNV Lorazepam (Ativan) 0.5 mg HS PRN PO ANXIETY; Start 04/24/19 at 14:30; Status UNV Senna (Senokot) 1 tab DAILY PO ; Start 04/25/19 at 09:00; Status UNV Coded Allergies: No Known Allergy (Unverified , 04/24/19) Past Surgical History Past Surgical Hx: angioplasty, coronary bypass surgery, other Family History Significant Family History: no pertinent family hx Social History Smoking Status: Current every day smoker Drug Use: none Exam/Review of Systems Vital Signs Vitals Vital Signs Date Temp Pulse Resp B/P (MAP) Pulse Ox O2 O2 Flow FiO2 Time Delivery Rate 6/23/19 56 21 133/67 100 Room Air 12:00 (89) 04/24/19 2.0 09:21 04/24/19 98.3 06:53 Exam Constitutional: alert, oriented Neck: supple, non-tender Respiratory: clear to auscultation Cardiovascular: regular rate and rhythm Gastrointestinal: soft, non-tender Musculoskeletal: other (left bka with compression dressing in place ) 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
[2019-04-24] MEDS: LORAZEPAM 1 MG TAB PO PRN ×2 (14:50→22:22)
[2019-04-24] MEDS ORDERED: GLUCOSE GEL 15 GRAM TUBE BUCCAL PRN (15:00)
[2019-04-24] MEDS ORDERED: DEXTROSE 50% 50 ML SYRINGE IV PRN ×2 (15:00)
[2019-04-24] MEDS ORDERED: GLUCOSE GEL 15 GRAM TUBE PO PRN ×2 (15:00)
[2019-04-24] MEDS ORDERED: GLUCAGON 1 MG INJ IM PRN (15:00)
[2019-04-24 15:11] VITALS: PULSE 61
[2019-04-24 15:39] VITALS: BP 167/70; PULSE 59; RESP 20
[2019-04-24 16:00] VITALS: PULSE 70
--- NOTE | 2019-04-24 16:20 | CONS ---
Consultation Date/Type/Reason Admit Date/Time Type of Consult Cardiology Date/Time of Note DATE: 04/24/19 TIME: 16:15 Hx of Present Illness Chest pain with recurrence, known CAD and angina multiple admissiobns Coronary artery with history of multiple PCI and bypass surgery Ischemic cardiomyopathy Hypertension Severe peripheral vascular disease status post left BKA multiple revascularization of lower extremities, and left bka stump wound Diabetes Dyslipidemia has recently started smoking again continue asa, plavix lipitor coreg check troponin Dr. Borges to follow Constitutional: no complaints Respiratory: shortness of breath Cardiovascular: chest pain Past Medical History Home Meds Active Scripts Amlodipine Besylate* (Amlodipine Besylate*) 2.5 Mg Tablet, 2.5 MG PO DAILY for 30 Days, TAB Prov:SPEEDY BASS MD 02/21/19 Reported Medications Sennosides* (Senna Lax*) 8.6 Mg Tablet, 1 TAB PO DAILY, TAB 03/23/19 Insulin Lispro (Humalog) 100 Unit/1 Ml Cartridge, 0 SQ BID, EA 5-10 UNITS-SLIDING SCALE 03/23/19 Clopidogrel Bisulfate* (Clopidogrel Bisulfate*) 75 Mg Tablet, 75 MG PO DAILY, #30 TAB 03/23/19 Atorvastatin* (Atorvastatin*) 80 Mg Tablet, 80 MG PO QHS, #30 TAB 03/23/19 Metformin Hcl* (Metformin Hcl*) 1,000 Mg Tablet, 1000 MG PO WITH BREAKFAST DINNE, #60 TAB 03/23/19 Losartan Potassium* (Losartan Potassium*) 100 Mg Tablet, 100 MG PO DAILY, TAB 03/23/19 Carvedilol* (Carvedilol*) 25 Mg Tablet, 25 MG PO BID, #60 TAB 03/23/19 Aspirin* (Aspirin* EC) 81 Mg Tablet.dr, 81 MG PO DAILY, TAB 03/23/19 Furosemide* (Furosemide*) 40 Mg Tablet, 40 MG PO DAILY, TAB 03/23/19 Lorazepam* (Lorazepam*) 0.5 Mg Tablet, 0.5 MG PO HS PRN for ANXIETY, TAB 03/23/19 Insulin Glargine,Hum.rec.anlog (Basaglar Kwikpen U-100) 100 Unit/1 Ml Insuln.pen, 45 UNIT SC BID, EA 03/23/19 Medications Current Medications Ondansetron HCl (Zofran Inj) 4 mg ER BRIDGE PRN IV NAUSEA/VOMITING; Start 04/24/19 at 09:30; Stop 04/25/19 at 09:29 Acetaminophen (Tylenol Tab) 650 mg ER BRIDGE PRN PO .MILD PAIN 1-3 OR TEMP Last administered on 04/24/19at 09:25; Admin Dose 650 MG; Start 04/24/19 at 09:30; Stop 04/25/19 at 09:29 IV Flush (NS 3 ml) 3 ml PER PROTOCOL IV ; Start 04/24/19 at 14:30 Ondansetron HCl (Zofran Inj) 4 mg Q6H PRN IV NAUSEA/VOMITING; Start 04/24/19 at 14:30 Acetaminophen (Tylenol Tab) 650 mg Q6H PRN PO .PAIN 1-3 OR TEMP; Start 04/24/19 at 14:30 Acetaminophen/ Hydrocodone Bitart ([place] (5/325)) 1 tab Q6H PRN PO .MOD PAIN 4- 6; Start 04/24/19 at 14:30 Morphine Sulfate (morphine) 2 mg Q4H PRN IV .SEVERE PAIN 7-10; Start 04/24/19 at 14:30 Docusate Sodium (Colace) 100 mg Q12H PRN PO .CONSTIPATION; Start 04/24/19 at 14:30 Magnesium Hydroxide (Milk Of Mag) 30 ml DAILY PRN PO .CONSTIPATION; Start 04/24/19 at 14:30 Famotidine (Pepcid) 20 mg Q12 PO ; Start 04/24/19 at 21:00 Lorazepam (Ativan) 0.5 mg Q6H PRN IV ANXIETY; Start 04/24/19 at 14:30 Albuterol/ Ipratropium (Duoneb) 3 ml Q4H RESP THERAPY PRN HHN SHORTNESS OF BR EATH; Start 04/24/19 at 14:30 Nitroglycerin (Nitroglycerin (Sl Tab) 0.4 Mg) 1 tab Q5M PRN SL ANGINA; Start 04/24/19 at 14:30 Aspirin (Halfprin) 162 mg DAILY PO ; Start 04/25/19 at 09:00 Atorvastatin Calcium (Lipitor) 80 mg QHS PO ; Start 04/24/19 at 21:00 Carvedilol (Coreg) 25 mg BID PO ; Start 04/24/19 at 21:00 Clopidogrel Bisulfate (plaVIX) 75 mg DAILY PO ; Start 04/25/19 at 09:00 Lorazepam (Ativan) 0.5 mg HS PRN PO ANXIETY; Start 04/24/19 at 14:30 Senna (Senokot) 1 tab DAILY PO ; Start 04/25/19 at 09:00 Lorazepam (Ativan) 1 mg Q6H PRN PO ANXIETY Last administered on 04/24/19at 14:50; Admin Dose 1 MG; Start 04/24/19 at 15:00 Insulin Glargine (Lantus) 45 units BID SC ; Start 04/24/19 at 21:00 Miscellaneous Information 1 ea NOTE XX ; Start 04/24/19 at 15:00 Glucose (Glutose) 15 gm Q15M PRN PO DECREASED GLUCOSE; Start 04/24/19 at 15:00 Glucose (Glutose) 22.5 gm Q15M PRN PO DECREASED GLUCOSE; Start 04/24/19 at 15:00 Dextrose (D50w Syringe) 25 ml Q15M PRN IV DECREASED GLUCOSE; Start 04/24/19 at 15:00 Dextrose (D50w Syringe) 50 ml Q15M PRN IV DECREASED GLUCOSE; Start 04/24/19 at 15:00 Glucagon (Glucagen) 1 mg Q15M PRN IM DECREASED GLUCOSE; Start 04/24/19 at 15:00 Glucose (Glutose) 15 gm Q15M PRN BUCCAL DECREASED GLUCOSE; Start 04/24/19 at 15:00 Insulin Aspart (Novolog Insulin Pen) NOVOLOG *MILD* ALGORI... Q4 SC ; Start 04/24/19 at 17:00 Allergies: Coded Allergies: No Known Allergy (Unverified , 04/24/19) Past Surgical History Past Surgical Hx: angioplasty, coronary bypass surgery, other Social History Smoking Status: Current every day smoker Drug Use: none Exam/Review of Systems Vital Signs Vitals Vital Signs Date Temp Pulse Resp B/P (MAP) Pulse Ox O2 O2 Flow FiO2 Time Delivery Rate 04/24/19 98.2 59 20 167/70 91 15:39 (102) 04/24/19 Nasal 2.0 14:43 Cannula Exam Exam Chest pain with recurrence, due to his chronic angina secondary to chronic total occlusions. Coronary artery with history of multiple PCI and bypass surgery Ischemic cardiomyopathy Hypertension Severe peripheral vascular disease status post left BKA multiple re vascularization of lower extremities, and left bka stump wound Diabetes Dyslipidemia Labs Result Diagram: 04/24/19 0650 04/24/19 0650 Results 24hrs Laboratory Tests Test 04/24/19 06:50 White Blood Count 8.5 Red Blood Count 4.41 L Hemoglobin 11.8 L Hematocrit 37.3 L Mean Corpuscular Volume 84.6 Mean Corpuscular Hemoglobin 26.8 L Mean Corpuscular Hemoglobin Concent 31.6 L Red Cell Distribution Width 15.3 H Platelet Count 219 # Mean Platelet Volume 11.2 H Immature Granulocytes % 0.400 Neutrophils % 59.6 Lymphocytes % 31.6 Monocytes % 6.5 Eosinophils % 1.4 Basophils % 0.5 Nucleated Red Blood Cells % 0.0 Immature Granulocytes # 0.030 Neutrophils # 5.1 Lymphocytes # 2.7 Monocytes # 0.6 Eosinophils # 0.1 Basophils # 0.0 Nucleated Red Blood Cells # 0.0 Prothrombin Time 12.5 Prothrombin Time Ratio 1.0 INR International Normalized Ratio 0.92 Sodium Level 144 Potassium Level 3.9 Chloride Level 107 Carbon Dioxide Level 25 Anion Gap 12 Blood Urea Nitrogen 18 Creatinine 0.82 Est Glomerular Filtrat Rate mL/min > 60 Glucose Level 202 Calcium Level 9.4 Troponin I < 0.012 B-Type Natriuretic Peptide 1020 H Free Thyroxine 1.11 Medications Medications Current Medications Ondansetron HCl (Zofran Inj) 4 mg ER BRIDGE PRN IV NAUSEA/VOMITING; Start 04/24/19 at 09:30; Stop 04/25/19 at 09:29 Acetaminophen (Tylenol Tab) 650 mg ER BRIDGE PRN PO .MILD PAIN 1-3 OR TEMP Last administered on 04/24/19at 09:25; Admin Dose 650 MG; Start 04/24/19 at 09:30; Stop 04/25/19 at 09:29 IV Flush (NS 3 ml) 3 ml PER PROTOCOL IV ; Start 04/24/19 at 14:30 Ondansetron HCl (Zofran Inj) 4 mg Q6H PRN IV NAUSEA/VOMITING; Start 04/24/19 at 14:30 Acetaminophen (Tylenol Tab) 650 mg Q6H PRN PO .PAIN 1-3 OR TEMP; Start 04/24/19 at 14:30 Acetaminophen/ Hydrocodone Bitart ([place] (5/325)) 1 tab Q6H PRN PO .MOD PAIN 4- 6; Start 04/24/19 at 14:30 Morphine Sulfate (morphine) 2 mg Q4H PRN IV .SEVERE PAIN 7-10; Start 04/24/19 at 14:30 Docusate Sodium (Colace) 100 mg Q12H PRN PO .CONSTIPATION; Start 04/24/19 at 14:30 Magnesium Hydroxide (Milk Of Mag) 30 ml DAILY PRN PO .CONSTIPATION; Start 04/24/19 at 14:30 Famotidine (Pepcid) 20 mg Q12 PO ; Start 04/24/19 at 21:00 Lorazepam (Ativan) 0.5 mg Q6H PRN IV ANXIETY; Start 04/24/19 at 14:30 Albuterol/ Ipratropium (Duoneb) 3 ml Q4H RESP THERAPY PRN HHN SHORTNESS OF BREATH; Start 04/24/19 at 14:30 Nitroglycerin (Nitroglycerin (Sl Tab) 0.4 Mg) 1 tab Q5M PRN SL ANGINA; Start 04/24/19 at 14:30 Aspirin (Halfprin) 162 mg DAILY PO ; Start 04/25/19 at 09:00 Atorvastatin Calcium (Lipitor) 80 mg QHS PO ; Start 04/24/19 at 21:00 Carvedilol (Coreg) 25 mg BID PO ; Start 04/24/19 at 21:00 Clopidogrel Bisulfate (plaVIX) 75 mg DAILY PO ; Start 04/25/19 at 09:00 Lorazepam (Ativan) 0.5 mg HS PRN PO ANXIETY; Start 04/24/19 at 14:30 Senna (Senokot) 1 tab DAILY PO ; Start 04/25/19 at 09:00 Lorazepam (Ativan) 1 mg Q6H PRN PO ANXIETY Last administered on 04/24/19at 14:50; Admin Dose 1 MG; Start 04/24/19 at 15:00 Insulin Glargine (Lantus) 45 units BID SC ; Start 04/24/19 at 21:00 Miscellaneous Information 1 ea NOTE XX ; Start 04/24/19 at 15:00 Glucose (Glutose) 15 gm Q15M PRN PO DECREASED GLUCOSE; Start 04/24/19 at 15:00 Glucose (Glutose) 22.5 gm Q15M PRN PO DECREASED GLUCOSE; Start 04/24/19 at 15:00 Dextrose (D50w Syringe) 25 ml Q15M PRN IV DECREASED GLUCOSE; Start 04/24/19 at 15:00 Dextrose (D50w Syringe) 50 ml Q15M PRN IV DECREASED GLUCOSE; Start 04/24/19 at 15:00 Glucagon (Glucagen) 1 mg Q15M PRN IM DECREASED GLUCOSE; Start 04/24/19 at 15:00 Glucose (Glutose) 15 gm Q15M PRN BUCCAL DECREASED GLUCOSE; Start 04/24/19 at 15:00 Insulin Aspart (Novolog Insulin Pen) NOVOLOG *MILD* ALGORI... Q4 SC ; Start 04/24/19 at 17:00 SHIELA HYDE MD Apr 24, 2019 16:20
[2019-04-24] MEDS: morphine 2 MG INJ IV PRN ×2 (16:46→20:54)
[2019-04-24] MEDS: INSULIN ASPART [NOVOLOG] 3 ML PEN SC SCH ×2 (17:28→21:12)
[2019-04-24 19:48] VITALS: BP 144/73; PULSE 64; RESP 18
[2019-04-24 20:31] VITALS: PULSE 65
[2019-04-24] MEDS: FAMOTIDINE 20 MG TAB PO SCH (20:53)
[2019-04-24] MEDS: ATORVASTATIN 80 MG TAB PO SCH (20:53)
[2019-04-24] MEDS ORDERED: INSULIN GLARGINE [LANtus] 3 ML PEN SC SCH (21:00)
[2019-04-24] MEDS: INSULIN GLARGINE [LANTus] (100 UNITS/ML) SYG SC SCH (21:11)
[2019-04-24 23:22] VITALS: BP 136/70; PULSE 66; RESP 18
[2019-04-25] VITALS (12 sets, daily range): BP systolic 132–161; BP diastolic 65–78; PULSE 57–71; RESP 16–22
[2019-04-25] MEDS: INSULIN ASPART [NOVOLOG] 3 ML PEN SC SCH ×5 (01:14→16:43)
[2019-04-25] MEDS: morphine 2 MG INJ IV PRN ×4 (01:20→21:53)
[2019-04-25] MEDS ORDERED: ACCU-CHEK XX SCH (02:00)
[2019-04-25] MEDS: NITROGLYCERIN (SL) 0.4 MG TAB SL PRN ×3 (06:25→10:28)
[2019-04-25] MEDS: FAMOTIDINE 20 MG TAB PO SCH ×2 (08:26→20:20)
[2019-04-25] MEDS: SENNA TAB PO SCH (08:26)
[2019-04-25] MEDS: ASPIRIN (EC) 81 MG TAB PO SCH (08:27)
[2019-04-25] MEDS: CLOPIDOGREL 75 MG TAB PO SCH (08:27)
[2019-04-25] MEDS: LORAZEPAM 1 MG TAB PO PRN ×3 (09:47→23:30)
[2019-04-25] MEDS: INSULIN GLARGINE [LANTus] (100 UNITS/ML) SYG SC SCH ×2 (11:28→21:38)
--- NOTE | 2019-04-25 12:38 | PN ---
Date/Time of Note Date/Time of Note DATE: 04/25/19 TIME: 12:37 Assessment/Plan VTE Prophylaxis Risk score (from Nsg)>0 risk: 5 SCD applied (from Ns): No SCD contraindicated: other Pharmacological prophylaxis: LMWH, other Lines/Catheters IV Catheter Type (from Nrs): Saline Lock Urinary Cath still in place: No Assessment/Plan Hospital Course SUBJECTIVE: Denies any chest pain at this time. OBJECTIVE: Physical Exam general: Adequately build 64 year-old male lying in bed in no apparent distress. HEENT: Normocephalic, atraumatic. Eyes: Anicteric sclerae, conjunctivae clear. ENT: Nasal septum midline, oral mucosa moist. Neck supple, no JVD noticed. Respiratory: Bilaterally diminished with breath sounds. No use of accessory muscles of respiration. No adventitious breath sounds. Cardiovascular: S1, S2 heard. Regular rate and rhythm. Abdomen: Soft, nontender, and nondistended. Bowel sounds positive in all 4 quadrants. Genitourinary: Deferred. Extremities: No cyanosis, no clubbing, no edema. Left BKA. Neurologic: Cranial nerves II through XII grossly intact. The patient is awake, alert, and oriented. Skin: Normal skin turgor. No skin rashes. Labs & Vitals per chart ASSESSMENT & PLAN 63-year-old male with comorbidities including ischemic cardiomyopathy, CAD status post multiple PCIs and CABG, diabetes mellitus type 2, hypertension, and peripheral vascular disease status post left below-knee amputation, who came to the emergency room with a chief complaint of chest pain who was admitted to inpatient setting for further treatment and evaluation. 1. Chest pain. Being followed by cardiology. Troponins negative so far. Continue dual antiplatelet therapy. 2. CAD status post multiple PCI's and CABG. Continue dual antiplatelet therapy. Continue high-dose statins. 3. Diabetes mellitus type 2. Hemoglobin A1c 7.9. Continue sliding scale insulin along with basal insulin. 4. Ischemic cardiomyopathy. Latest ejection fraction as per 2D echocardiogram on 02/20/2019 25 to 30%. Continue beta-blockers and MARTY inhibitors. 5. Dyslipidemia. Continue statins. 6. Severe peripheral vascular disease, status post left BKA. Continue medical optimization. Has outpatient follow-up with the vascular surgeon in the near future. 7. Nicotine use. Cessation advised. 8. Normocytic anemia. Most probably anemia of chronic disease. Monitor H&H closely. 9. Hypertension. Continue antihypertensives. 10. Fluids, electrolytes, and nutrition. Carbohydrate controlled diet. 11. DVT prophylaxis. Subcutaneous Lovenox. 12. Plan. Continue medical optimization. Await further cardiology recommendations. The patient was seen in collaboration with Dr. Arvizu. Result Diagram: 04/25/19 0515 04/25/19 0515 Results 24hrs Laboratory Tests Test 04/24/19 15:44 04/24/19 17:24 04/24/19 21:03 04/25/19 00:30 Prothrombin Time 12.9 Prothrombin Time 1.0 Ratio INR International 0.96 Normalized Ratio Activated 30.7 Partial Thromboplast Time Creatine Kinase 108 99 Creatine Kinase 2.3 2.2 Index Creatinine Kinase MB 2.47 H 2.14 (Mass) Troponin I < 0.012 < 0.012 Bedside Glucose 299 H 335 H Test 04/25/19 01:08 04/25/19 05:15 04/25/19 05:37 04/25/19 08:24 Bedside Glucose 181 178 192 White Blood Count 8.0 Red Blood Count 4.13 L Hemoglobin 10.8 L Hematocrit 35.6 L Mean Corpuscular 86.2 Volume Mean Corpuscular 26.2 L Hemoglobin Mean Corpuscular 30.3 L Hemoglobin Concent Red Cell 15.6 H Distribution Width Platelet Count 191 Mean Platelet Volume 11.8 H Immature 0.400 Granulocytes % Neutrophils % 52.2 Lymphocytes % 38.3 Monocytes % 7.1 Eosinophils % 1.5 Basophils % 0.5 Nucleated Red Blood 0.0 Cells % Immature 0.030 Granulocytes # Neutrophils # 4.2 Lymphocytes # 3.1 H Monocytes # 0.6 Eosinophils # 0.1 Basophils # 0.0 Nucleated Red Blood 0.0 Cells # Sodium Level 144 Potassium Level 4.5 Chloride Level 106 Carbon Dioxide Level 29 Anion Gap 9 Blood Urea Nitrogen 17 Creatinine 0.98 Est Glomerular > 60 Filtrat Rate mL/min Glucose Level 149 # Hemoglobin A1c 7.9 H Calcium Level 9.0 Phosphorus Level 4.2 Magnesium Level 2.2 Triglycerides Level 85 Cholesterol Level 136 LDL Cholesterol, 85 Calculated HDL Cholesterol 34 Cholesterol/HDL 4.0 Ratio Thyroid Stimulating 1.680 Hormone (TSH) Test 04/25/19 11:13 04/25/19 12:31 Bedside Glucose 247 H 241 H Exam/Review of Systems Exam Vitals Vital Signs Date Temp Pulse Resp B/P (MAP) Pulse Ox O2 O2 Flow FiO2 Time Delivery Rate 04/25/19 97.5 62 18 139/65 98 Room Air 11:54 (89) 04/24/19 2.0 14:43 Intake and Output 04/24/19 04/24/19 04/25/19 1515:00 23:00 07:00 IntakeIntake Total 350 ml 1180 ml OutputOutput Total 800 ml BalanceBalance 350 ml 380 ml Results Results 24hrs Laboratory Tests Test 04/24/19 15:44 04/24/19 17:24 04/24/19 21:03 04/25/19 00:30 Prothrombin Time 12.9 Prothrombin Time 1.0 Ratio INR International 0.96 Normalized Ratio Activated 30.7 Partial Thromboplast Time Creatine Kinase 108 99 Creatine Kinase 2.3 2.2 Index Creatinine Kinase MB 2.47 H 2.14 (Mass) Troponin I < 0.012 < 0.012 Bedside Glucose 299 H 335 H Test 04/25/19 01:08 04/25/19 05:15 04/25/19 05:37 04/25/19 08:24 Bedside Glucose 181 178 192 White Blood Count 8.0 Red Blood Count 4.13 L Hemoglobin 10.8 L Hematocrit 35.6 L Mean Corpuscular 86.2 Volume Mean Corpuscular 26.2 L Hemoglobin Mean Corpuscular 30.3 L Hemoglobin Concent Red Cell 15.6 H Distribution Width Platelet Count 191 Mean Platelet Volume 11.8 H Immature 0.400 Granulocytes % Neutrophils % 52.2 Lymphocytes % 38.3 Monocytes % 7.1 Eosinophils % 1.5 Basophils % 0.5 Nucleated Red Blood 0.0 Cells % Immature 0.030 Granulocytes # Neutrophils # 4.2 Lymphocytes # 3.1 H Monocytes # 0.6 Eosinophils # 0.1 Basophils # 0.0 Nucleated Red Blood 0.0 Cells # Sodium Level 144 Potassium Level 4.5 Chloride Level 106 Carbon Dioxide Level 29 Anion Gap 9 Blood Urea Nitrogen 17 Creatinine 0.98 Est Glomerular > 60 Filtrat Rate mL/min Glucose Level 149 # Hemoglobin A1c 7.9 H Calcium Level 9.0 Phosphorus Level 4.2 Magnesium Level 2.2 Triglycerides Level 85 Cholesterol Level 136 LDL Cholesterol, 85 Calculated HDL Cholesterol 34 Cholesterol/HDL 4.0 Ratio Thyroid Stimulating 1.680 Hormone (TSH) Test 04/25/19 11:13 04/25/19 12:31 Bedside Glucose 247 H 241 H Medications Medication Current Medications IV Flush (NS 3 ml) 3 ml PER PROTOCOL IV ; Start 04/24/19 at 14:30 Ondansetron HCl (Zofran Inj) 4 mg Q6H PRN IV NAUSEA/VOMITING; Start 04/24/19 at 14:30 Acetaminophen (Tylenol Tab) 650 mg Q6H PRN PO .PAIN 1-3 OR TEMP; Start 04/24/19 at 14:30 Acetaminophen/ Hydrocodone Bitart ([place] (5/325)) 1 tab Q6H PRN PO .MOD PAIN 4- 6 Last administered on 04/25/19 12:30; Admin Dose 1 TAB; Start 04/24/19 at 14:30 Morphine Sulfate (morphine) 2 mg Q4H PRN IV .SEVERE PAIN 7-10 Last administered on 04/25/19 08:24; Admin Dose 2 MG; Start 04/24/19 at 14:30 Docusate Sodium (Colace) 100 mg Q12H PRN PO .CONSTIPATION Last administered on 04/24/19 20:53; Admin Dose 100 MG; Start 04/24/19 at 14:30 Magnesium Hydroxide (Milk Of Mag) 30 ml DAILY PRN PO .CONSTIPATION; Start 04/24/19 at 14:30 Famotidine (Pepcid) 20 mg Q12 PO Last administered on 04/25/19 08:26; Admin Dose 20 MG; Start 04/24/19 at 21:00 Lorazepam (Ativan) 0.5 mg Q6H PRN IV ANXIETY; Start 04/24/19 at 14:30 Albuterol/ Ipratropium (Duoneb) 3 ml Q4H RESP THERAPY PRN HHN SHORTNESS OF BREATH; Start 04/24/19 at 14:30 Nitroglycerin (Nitroglycerin (Sl Tab) 0.4 Mg) 1 tab Q5M PRN SL ANGINA Last administered on 04/25/19 10:28; Admin Dose 1 TAB; Start 04/24/19 at 14:30 Aspirin (Halfprin) 162 mg DAILY PO Last administered on 04/25/19 08:27; Admin Dose 162 MG; Start 04/25/19 at 09:00 Atorvastatin Calcium (Lipitor) 80 mg QHS PO Last administered on 04/24/19 20:53; Admin Dose 80 MG; Start 04/24/19 at 21:00 Carvedilol (Coreg) 25 mg BID PO Last administered on 04/25/19 08:27; Admin Dose 25 MG; Start 04/24/19 at 21:00 Clopidogrel Bisulfate (plaVIX) 75 mg DAILY PO Last administered on 04/25/19 08:27; Admin Dose 75 MG; Start 04/25/19 at 09:00 Lorazepam (Ativan) 0.5 mg HS PRN PO ANXIETY; Start 04/24/19 at 14:30 Senna (Senokot) 1 tab DAILY PO Last administered on 04/25/19 08:26; Admin Dose 1 TAB; Start 04/25/19 at 09:00 Lorazepam (Ativan) 1 mg Q6H PRN PO ANXIETY Last administered on 04/25/19 09:47; Admin Dose 1 MG; Start 04/24/19 at 15:00 Insulin Glargine (Lantus) 45 units BID SC Last administered on 04/25/19 11:28; Admin Dose 45 UNITS; Start 04/24/19 at 21:00 Miscellaneous Information 1 ea NOTE XX ; Start 04/24/19 at 15:00 Glucose (Glutose) 15 gm Q15M PRN PO DECREASED GLUCOSE; Start 04/24/19 at 15:00 Glucose (Glutose) 22.5 gm Q15M PRN PO DECREASED GLUCOSE; Start 04/24/19 at 15:00 Dextrose (D50w Syringe) 25 ml Q15M PRN IV DECREASED GLUCOSE; Start 04/24/19 at 15:00 Dextrose (D50w Syringe) 50 ml Q15M PRN IV DECREASED GLUCOSE; Start 04/24/19 at 15:00 Glucagon (Glucagen) 1 mg Q15M PRN IM DECREASED GLUCOSE; Start 04/24/19 at 15:00 Glucose (Glutose) 15 gm Q15M PRN BUCCAL DECREASED GLUCOSE; Start 04/24/19 at 15:00 Insulin Aspart (Novolog Insulin Pen) NOVOLOG *MILD* ALGORI... Q4 SC Last administered on 04/25/19 12:32; Admin Dose 3 UNIT; Start 04/24/19 at 17:00 TASHA WATERS NP Apr 25, 2019 12:38
--- NOTE | 2019-04-25 18:54 | CONS ---
Consult Date/Type/Reason Admit Date/Time Apr 24, 2019 at 09:15 Initial Consult Date Type of Consultation: cv Date/Time of Note DATE: 04/25/19 TIME: 18:50 Subjective Cardiology follow-up progress note Subjective: Patient with no chest pain or pressure no palpitation. no foot pain is better. pt states that he came into the hospital because he was having a very high blood pressure and high sugar. His chest pain was very minimal has completely resolved now. Discussed with his sister as well Objective: General: no acute distress HEENT: NC/AT. pupils are equal. round. NECK: NO JVD. no stridor. CV: RRR. systolic murmur; no gallop or rubs. PULM: no wheezing or rhonchi. GI: SOFT, NT, ND, no rebound or guarding Extremity: Left lower extremity status post BKA in dressing. neuro: awake and alert, OX3. Psych: calm and pleasant rectal: deferred : normal EKG was personally reviewed showed normal sinus rhythm. Inferior infarct age undetermined. Anterior infarct age undetermined. Nonspecific ST-T wave abnormalities Chest x-ray shows: No acute cardiopulmonary disease Objective Vitals Vital Signs Date Temp Pulse Resp B/P (MAP) Pulse Ox O2 O2 Flow FiO2 Time Delivery Rate 04/25/19 97.6 63 16 161/70 96 Room Air 15:16 (100) 04/24/19 2.0 14:43 Intake and Output 04/24/19 04/24/19 04/25/19 1515:00 23:00 07:00 IntakeIntake Total 350 ml 1180 ml OutputOutput Total 800 ml BalanceBalance 350 ml 380 ml Results/Medications Result Diagram: 04/25/19 0515 04/25/19 0515 Results 24 hrs Laboratory Tests Test 04/24/19 21:03 04/25/19 00:30 04/25/19 01:08 04/25/19 05:15 Bedside Glucose 335 H 181 Creatine Kinase 99 Creatine Kinase 2.2 Index Creatinine Kinase MB 2.14 (Mass) Troponin I < 0.012 White Blood Count 8.0 Red Blood Count 4.13 L Hemoglobin 10.8 L Hematocrit 35.6 L Mean Corpuscular 86.2 Volume Mean Corpuscular 26.2 L Hemoglobin Mean Corpuscular 30.3 L Hemoglobin Concent Red Cell 15.6 H Distribution Width Platelet Count 191 Mean Platelet Volume 11.8 H Immature 0.400 Granulocytes % Neutrophils % 52.2 Lymphocytes % 38.3 Monocytes % 7.1 Eosinophils % 1.5 Basophils % 0.5 Nucleated Red Blood 0.0 Cells % Immature 0.030 Granulocytes # Neutrophils # 4.2 Lymphocytes # 3.1 H Monocytes # 0.6 Eosinophils # 0.1 Basophils # 0.0 Nucleated Red Blood 0.0 Cells # Sodium Level 144 Potassium Level 4.5 Chloride Level 106 Carbon Dioxide Level 29 Anion Gap 9 Blood Urea Nitrogen 17 Creatinine 0.98 Est Glomerular > 60 Filtrat Rate mL/min Glucose Level 149 # Hemoglobin A1c 7.9 H Calcium Level 9.0 Phosphorus Level 4.2 Magnesium Level 2.2 Triglycerides Level 85 Cholesterol Level 136 LDL Cholesterol, 85 Calculated HDL Cholesterol 34 Cholesterol/HDL 4.0 Ratio Thyroid Stimulating 1.680 Hormone (TSH) Test 04/25/19 05:37 04/25/19 08:24 04/25/19 11:13 04/25/19 12:31 Bedside Glucose 178 192 247 H 241 H Test 04/25/19 16:41 04/25/19 17:57 Bedside Glucose 332 H 283 H Home Meds Active Scripts Amlodipine Besylate* (Amlodipine Besylate*) 2.5 Mg Tablet, 2.5 MG PO DAILY for 30 Days, TAB Prov:SPEEDY BASS MD 02/21/19 Reported Medications Sennosides* (Senna Lax*) 8.6 Mg Tablet, 1 TAB PO DAILY, TAB 03/23/19 Insulin Lispro (Humalog) 100 Unit/1 Ml Cartridge, 0 SQ BID, EA 5-10 UNITS-SLIDING SCALE 03/23/19 Clopidogrel Bisulfate* (Clopidogrel Bisulfate*) 75 Mg Tablet, 75 MG PO DAILY, #30 TAB 03/23/19 Atorvastatin* (Atorvastatin*) 80 Mg Tablet, 80 MG PO QHS, #30 TAB 03/23/19 Metformin Hcl* (Metformin Hcl*) 1,000 Mg Tablet, 1000 MG PO WITH BREAKFAST DINNE, #60 TAB 03/23/19 Losartan Potassium* (Losartan Potassium*) 100 Mg Tablet, 100 MG PO DAILY, TAB 03/23/19 Carvedilol* (Carvedilol*) 25 Mg Tablet, 25 MG PO BID, #60 TAB 03/23/19 Aspirin* (Aspirin* EC) 81 Mg Tablet.dr, 81 MG PO DAILY, TAB 03/23/19 Furosemide* (Furosemide*) 40 Mg Tablet, 40 MG PO DAILY, TAB 03/23/19 Lorazepam* (Lorazepam*) 0.5 Mg Tablet, 0.5 MG PO HS PRN for ANXIETY, TAB 03/23/19 Insulin Glargine,Hum.rec.anlog (Basaglar Kwikpen U-100) 100 Unit/1 Ml Insuln.pen, 45 UNIT SC BID, EA 03/23/19 Medications Current Medications IV Flush (NS 3 ml) 3 ml PER PROTOCOL IV ; Start 04/24/19 at 14:30 Ondansetron HCl (Zofran Inj) 4 mg Q6H PRN IV NAUSEA/VOMITING; Start 04/24/19 at 14:30 Acetaminophen (Tylenol Tab) 650 mg Q6H PRN PO .PAIN 1-3 OR TEMP; Start 04/24/19 at 14:30 Acetaminophen/ Hydrocodone Bitart ([place] (5/325)) 1 tab Q6H PRN PO .MOD PAIN 4- 6 Last administered on 04/25/19at 12:30; Admin Dose 1 TAB; Start 04/24/19 at 14:30 Morphine Sulfate (morphine) 2 mg Q4H PRN IV .SEVERE PAIN 7-10 Last administered on 04/25/19at 16:44; Admin Dose 2 MG; Start 04/24/19 at 14:30 Docusate Sodium (Colace) 100 mg Q12H PRN PO .CONSTIPATION Last administered on 04/24/19at 20:53; Admin Dose 100 MG; Start 04/24/19 at 14:30 Magnesium Hydroxide (Milk Of Mag) 30 ml DAILY PRN PO .CONSTIPATION; Start 04/24/19 at 14:30 Famotidine (Pepcid) 20 mg Q12 PO Last administered on 04/25/19at 08:26; Admin Dose 20 MG; Start 04/24/19 at 21:00 Lorazepam (Ativan) 0.5 mg Q6H PRN IV ANXIETY; Start 04/24/19 at 14:30 Albuterol/ Ipratropium (Duoneb) 3 ml Q4H RESP THERAPY PRN HHN SHORTNESS OF BREATH; Start 04/24/19 at 14:30 Nitroglycerin (Nitroglycerin (Sl Tab) 0.4 Mg) 1 tab Q5M PRN SL ANGINA Last administered on 04/25/19 10:28; Admin Dose 1 TAB; Start 04/24/19 at 14:30 Aspirin (Halfprin) 162 mg DAILY PO Last administered on 04/25/19 08:27; Admin Dose 162 MG; Start 04/25/19 at 09:00 Atorvastatin Calcium (Lipitor) 80 mg QHS PO Last administered on 04/24/19 20:53; Admin Dose 80 MG; Start 04/24/19 at 21:00 Carvedilol (Coreg) 25 mg BID PO Last administered on 04/25/19 08:27; Admin Dose 25 MG; Start 04/24/19 at 21:00 Clopidogrel Bisulfate (plaVIX) 75 mg DAILY PO Last administered on 04/25/19 08:27; Admin Dose 75 MG; Start 04/25/19 at 09:00 Lorazepam (Ativan) 0.5 mg HS PRN PO ANXIETY; Start 04/24/19 at 14:30 Senna (Senokot) 1 tab DAILY PO Last administered on 04/25/19 08:26; Admin Dose 1 TAB; Start 04/25/19 at 09:00 Lorazepam (Ativan) 1 mg Q6H PRN PO ANXIETY Last administered on 04/25/19 18:04; Admin Dose 1 MG; Start 04/24/19 at 15:00 Insulin Glargine (Lantus) 45 units BID SC Last administered on 04/25/19 11:28; Admin Dose 45 UNITS; Start 04/24/19 at 21:00 Miscellaneous Information 1 ea NOTE XX ; Start 04/24/19 at 15:00 Glucose (Glutose) 15 gm Q15M PRN PO DECREASED GLUCOSE; Start 04/24/19 at 15:00 Glucose (Glutose) 22.5 gm Q15M PRN PO DECREASED GLUCOSE; Start 04/24/19 at 15:00 Dextrose (D50w Syringe) 25 ml Q15M PRN IV DECREASED GLUCOSE; Start 04/24/19 at 15:00 Dextrose (D50w Syringe) 50 ml Q15M PRN IV DECREASED GLUCOSE; Start 04/24/19 at 15:00 Glucagon (Glucagen) 1 mg Q15M PRN IM DECREASED GLUCOSE; Start 04/24/19 at 15:00 Glucose (Glutose) 15 gm Q15M PRN BUCCAL DECREASED GLUCOSE; Start 04/24/19 at 15:00 Enoxaparin Sodium (Lovenox) 40 mg DAILY SC ; Start 04/26/19 at 09:00 Insulin Aspart (Novolog Insulin Pen) NOVOLOG *MILD* ALGORI... AC LUNCH DINNER SC ; Start 04/26/19 at 11:20 Insulin Aspart (Novolog Insulin Pen) 6 unit WITH MEALS SC ; Start 04/26/19 at 07:55 Assessment/Plan Hospital Course (Demo Recall) Chest pain ; probably due to his severe hypertension has resolved now with negative troponins Coronary artery with history of multiple PCI and bypass surgery Ischemic cardiomyopathy Hypertension Severe peripheral vascular disease status post left BKA multiple revascularization of lower extremities Diabetes Dyslipidemia Recommendations: Continue with the Coreg. Patient used to be on losartan at home which is not here anymore and will resume it. Aldactone was added as per the last admission however he is no longer taking it. We will resume that as well Continue with high-dose statin. Zetia has been added as well for better management of his lipids Stump management and wound care as per internal medicine and consultants Diabetic management as per internal medicine Continue with Plavix RACHEL CALLAHAN MD [facility] RACHEL CALLAHAN MD Apr 25, 2019 18:54
[2019-04-25] MEDS: LOSARTAN 50 MG TAB PO SCH (20:18)
[2019-04-25] MEDS: ATORVASTATIN 80 MG TAB PO SCH (20:19)
[2019-04-25] MEDS ORDERED: EZETIMIBE 10 MG TAB PO SCH (21:00)
[2019-04-26] VITALS (9 sets, daily range): BP systolic 133–165; BP diastolic 72–80; PULSE 57–68; RESP 18–20
[2019-04-26] MEDS: morphine 2 MG INJ IV PRN ×3 (05:02→16:33)
[2019-04-26] MEDS: INSULIN ASPART [NOVOLOG] 3 ML PEN SC SCH ×5 (07:51→17:06)
[2019-04-26] MEDS: CLOPIDOGREL 75 MG TAB PO SCH (08:14)
[2019-04-26] MEDS: LOSARTAN 50 MG TAB PO SCH (08:14)
[2019-04-26] MEDS: SENNA TAB PO SCH (08:14)
[2019-04-26] MEDS: FAMOTIDINE 20 MG TAB PO SCH (08:14)
[2019-04-26] MEDS: ASPIRIN (EC) 81 MG TAB PO SCH (08:14)
[2019-04-26] MEDS: INSULIN GLARGINE [LANTus] (100 UNITS/ML) SYG SC SCH (08:18)
[2019-04-26] MEDS ORDERED: ENOXAPARIN 40 MG/0.4 ML SYG SC SCH (09:00)
[2019-04-26] MEDS ORDERED: SPIRONOLACTONE 25 MG TAB PO SCH (09:00)
[2019-04-26] MEDS: LORAZEPAM 1 MG TAB PO PRN (09:45)
--- NOTE | 2019-04-26 13:13 | CONS ---
Consult Date/Type/Reason Admit Date/Time Apr 24, 2019 at 09:15 Initial Consult Date Type of Consultation: cv Date/Time of Note DATE: 04/26/19 TIME: 13:11 Subjective Cardiology follow-up progress note Subjective: Patient with no chest pain or pressure no palpitation. Discussed with his sister as well no cp or pressure no sob he wants to go home Objective: General: no acute distress HEENT: NC/AT. pupils are equal. round. NECK: NO JVD. no stridor. CV: RRR. systolic murmur; no gallop or rubs. PULM: no wheezing or rhonchi. GI: SOFT, NT, ND, no rebound or guarding Extremity: Left lower extremity status post BKA in dressing. neuro: awake and alert, OX3. Psych: calm and pleasant rectal: deferred : normal EKG was personally reviewed showed normal sinus rhythm. Inferior infarct age undetermined. Anterior infarct age undetermined. Nonspecific ST-T wave a bnormalities Chest x-ray shows: No acute cardiopulmonary disease Objective Vitals Vital Signs Date Temp Pulse Resp B/P (MAP) Pulse Ox O2 O2 Flow FiO2 Time Delivery Rate 04/26/19 98.2 59 20 154/74 96 Room Air 11:08 (100) 04/24/19 2.0 14:43 Intake and Output 04/25/19 04/25/19 04/26/19 1515:00 23:00 07:00 IntakeIntake Total 900 ml 350 ml BalanceBalance 900 ml 350 ml Results/Medications Result Diagram: 04/26/19 0553 04/26/19 0553 Results 24 hrs Laboratory Tests Test 04/25/19 16:41 04/25/19 17:57 04/26/19 02:39 04/26/19 05:53 Bedside Glucose 332 H 283 H 101 White Blood Count 7.9 Red Blood Count 4.20 L Hemoglobin 11.0 L Hematocrit 35.5 L Mean Corpuscular 84.5 Volume Mean Corpuscular 26.2 L Hemoglobin Mean Corpuscular 31.0 L Hemoglobin Concent Red Cell 15.3 H Distribution Width Platelet Count 194 Mean Platelet Volume 11.7 H Immature 0.300 Granulocytes % Neutrophils % 59.3 Lymphocytes % 30.8 Monocytes % 7.5 Eosinophils % 1.5 Basophils % 0.6 Nucleated Red Blood 0.0 Cells % Immature 0.020 Granulocytes # Neutrophils # 4.7 Lymphocytes # 2.4 Monocytes # 0.6 Eosinophils # 0.1 Basophils # 0.1 Nucleated Red Blood 0.0 Cells # Sodium Level 145 H Potassium Level 4.0 Chloride Level 109 Carbon Dioxide Level 27 Anion Gap 9 Blood Urea Nitrogen 15 Creatinine 0.88 Est Glomerular > 60 Filtrat Rate mL/min Glucose Level 100 # Calcium Level 9.1 Phosphorus Level 4.0 Magnesium Level 2.1 B-Type Natriuretic 1680 H Peptide Test 04/26/19 07:47 04/26/19 11:44 Bedside Glucose 110 153 Home Meds Active Scripts Amlodipine Besylate* (Amlodipine Besylate*) 2.5 Mg Tablet, 2.5 MG PO DAILY for 30 Days, TAB Prov:SPEEDY BASS MD 02/21/19 Reported Medications Sennosides* (Senna Lax*) 8.6 Mg Tablet, 1 TAB PO DAILY, TAB 03/23/19 Insulin Lispro (Humalog) 100 Unit/1 Ml Cartridge, 0 SQ BID, EA 5-10 UNITS-SLIDING SCALE 03/23/19 Clopidogrel Bisulfate* (Clopidogrel Bisulfate*) 75 Mg Tablet, 75 MG PO DAILY, #30 TAB 03/23/19 Atorvastatin* (Atorvastatin*) 80 Mg Tablet, 80 MG PO QHS, #30 TAB 03/23/19 Metformin Hcl* (Metformin Hcl*) 1,000 Mg Tablet, 1000 MG PO WITH BREAKFAST DINNE, #60 TAB 03/23/19 Losartan Potassium* (Losartan Potassium*) 100 Mg Tablet, 100 MG PO DAILY, TAB 03/23/19 Carvedilol* (Carvedilol*) 25 Mg Tablet, 25 MG PO BID, #60 TAB 03/23/19 Aspirin* (Aspirin* EC) 81 Mg Tablet.dr, 81 MG PO DAILY, TAB 03/23/19 Furosemide* (Furosemide*) 40 Mg Tablet, 40 MG PO DAILY, TAB 03/23/19 Lorazepam* (Lorazepam*) 0.5 Mg Tablet, 0.5 MG PO HS PRN for ANXIETY, TAB 03/23/19 Insulin Glargine,Hum.rec.anlog (Basaglar Kwikpen U-100) 100 Unit/1 Ml Insuln.pen, 45 UNIT SC BID, EA 03/23/19 Medications Current Medications IV Flush (NS 3 ml) 3 ml PER PROTOCOL IV ; Start 04/24/19 at 14:30 Ondansetron HCl (Zofran Inj) 4 mg Q6H PRN IV NAUSEA/VOMITING; Start 04/24/19 at 14:30 Acetaminophen (Tylenol Tab) 650 mg Q6H PRN PO .PAIN 1-3 OR TEMP; Start 04/24/19 at 14:30 Acetaminophen/ Hydrocodone Bitart ([place] (5/325)) 1 tab Q6H PRN PO .MOD PAIN 4- 6 Last administered on 04/25/19 12:30; Admin Dose 1 TAB; Start 04/24/19 at 14:30 Morphine Sulfate (morphine) 2 mg Q4H PRN IV .SEVERE PAIN 7-10 Last administered on 04/26/19 11:46; Admin Dose 2 MG; Start 04/24/19 at 14:30 Docusate Sodium (Colace) 100 mg Q12H PRN PO .CONSTIPATION Last administered on 04/24/19 20:53; Admin Dose 100 MG; Start 04/24/19 at 14:30 Magnesium Hydroxide (Milk Of Mag) 30 ml DAILY PRN PO .CONSTIPATION; Start 04/24/19 at 14:30 Famotidine (Pepcid) 20 mg Q12 PO Last administered on 04/26/19 08:14; Admin Dose 20 MG; Start 04/24/19 at 21:00 Lorazepam (Ativan) 0.5 mg Q6H PRN IV ANXIETY; Start 04/24/19 at 14:30 Albuterol/ Ipratropium (Duoneb) 3 ml Q4H RESP THERAPY PRN HHN SHORTNESS OF BREATH; Start 04/24/19 at 14:30 Nitroglycerin (Nitroglycerin (Sl Tab) 0.4 Mg) 1 tab Q5M PRN SL ANGINA Last administered on 04/25/19 10:28; Admin Dose 1 TAB; Start 04/24/19 at 14:30 Aspirin (Halfprin) 162 mg DAILY PO Last administered on 04/26/19 08:14; Admin Dose 162 MG; Start 04/25/19 at 09:00 Atorvastatin Calcium (Lipitor) 80 mg QHS PO Last administered on 04/25/19 20:19; Admin Dose 80 MG; Start 04/24/19 at 21:00 Carvedilol (Coreg) 25 mg BID PO Last administered on 04/26/19 08:14; Admin Dose 25 MG; Start 04/24/19 at 21:00 Clopidogrel Bisulfate (plaVIX) 75 mg DAILY PO Last administered on 04/26/19 08:14; Admin Dose 75 MG; Start 04/25/19 at 09:00 Lorazepam (Ativan) 0.5 mg HS PRN PO ANXIETY; Start 04/24/19 at 14:30 Senna (Senokot) 1 tab DAILY PO Last administered on 04/26/19 08:14; Admin Dose 1 TAB; Start 04/25/19 at 09:00 Lorazepam (Ativan) 1 mg Q6H PRN PO ANXIETY Last administered on 04/26/19 09:45; Admin Dose 1 MG; Start 04/24/19 at 15:00 Insulin Glargine (Lantus) 45 units BID SC Last administered on 04/26/19 08:18; Admin Dose 45 UNITS; Start 04/24/19 at 21:00 Miscellaneous Information 1 ea NOTE XX ; Start 04/24/19 at 15:00 Glucose (Glutose) 15 gm Q15M PRN PO DECREASED GLUCOSE; Start 04/24/19 at 15:00 Glucose (Glutose) 22.5 gm Q15M PRN PO DECREASED GLUCOSE; Start 04/24/19 at 15:00 Dextrose (D50w Syringe) 25 ml Q15M PRN IV DECREASED GLUCOSE; Start 04/24/19 at 15:00 Dextrose (D50w Syringe) 50 ml Q15M PRN IV DECREASED GLUCOSE; Start 04/24/19 at 15:00 Glucagon (Glucagen) 1 mg Q15M PRN IM DECREASED GLUCOSE; Start 04/24/19 at 15:00 Glucose (Glutose) 15 gm Q15M PRN BUCCAL DECREASED GLUCOSE; Start 04/24/19 at 15:00 Enoxaparin Sodium (Lovenox) 40 mg DAILY SC Last administered on 04/26/19 08:25; Admin Dose 40 MG; Start 04/26/19 at 09:00 Insulin Aspart (Novolog Insulin Pen) NOVOLOG *MILD* ALGORI... AC LUNCH DINNER SC Last administered on 04/26/19at 11:52; Admin Dose 1 UNIT; Start 04/26/19 at 11:20 Insulin Aspart (Novolog Insulin Pen) 6 unit WITH MEALS SC Last administered on 04/26/19at 11:52; Admin Dose 6 UNIT; Start 04/26/19 at 07:55 Losartan Potassium (Cozaar) 100 mg DAILY PO Last administered on 04/26/19at 08:14; Admin Dose 100 MG; Start 04/25/19 at 19:00 Spironolactone (Aldactone) 25 mg DAILY PO Last administered on 04/26/19at 08:14; Admin Dose 25 MG; Start 04/26/19 at 09:00 EZETIMIBE (Zetia) 10 mg QHS PO Last administered on 04/25/19at 20:18; Admin Dose 10 MG; Start 04/25/19 at 21:00 Hydrochlorothiazide (Hydrochlorothiazide) 25 mg DAILY PO ; Start 04/26/19 at 13 :30; Status UNV Amlodipine Besylate (Norvasc) 2.5 mg QHS PO ; Start 04/26/19 at 21:00 Assessment/Plan Hospital Course (Demo Recall) Chest pain ; probably due to anxiety /his severe hypertension : it has resolved now with negative troponins Coronary artery with history of multiple PCI and bypass surgery Ischemic cardiomyopathy Hypertension Severe peripheral vascular disease status post left BKA multiple revascularization of lower extremities Diabetes Dyslipidemia Recommendations: Continue with the Coreg. Patient used to be on losartan at home which is not here anymore and will resume it. Aldactone was added as per the last admission however he is no longer taking it. We will resume that as well Continue with high-dose statin. Zetia has been added as well for better management of his lipids Stump management and wound care as per internal medicine and consultants Diabetic management as per internal medicine Continue with Plavix will add hctz and norvasc dc plannign today RACHEL CALLAHAN MD [facility] RACHEL CALLAHAN MD Apr 26, 2019 13:13
[2019-04-26] MEDS ORDERED: HYDROCHLOROTHIAZIDE 25 MG TAB PO SCH (13:30)
[2019-04-26] MEDS ORDERED: LORA0.5T PO (13:58)
[2019-04-26] MEDS ORDERED: HYDR25TA6 PO (13:58)
[2019-04-26] MEDS ORDERED: LOSA100T15 PO (13:58)
[2019-04-26] MEDS ORDERED: SPIR25TA PO (13:58)
[2019-04-26] MEDS ORDERED: EZET10TA32 PO (13:58)
[2019-04-26] MEDS ORDERED: AMLO2.5T78 PO (13:58)
--- NOTE | 2019-04-26 14:02 | PDOCDIS ---
Discharge Instructions CONDITION [id number] Patient Condition: [id number] Stable HOME CARE INSTRUCTIONS: [id number] Diet Instructions: [id number] Low Fat /Cholesterol [id number] Special Diet: Xpxso9m Low carbohydrate FOLLOW UP/APPOINTMENTS Follow-up Plan Justin Borges MD Specialty: Interventional Cardiology Office Address [id number] [facility] [address] [place] [id number] Office OTHER ORDERS: Other Orders: 1. Take medications as per prescription. 2. Take a low-cholesterol, low carbohydrate diet. 3. Refrain from using tobacco. 4. Resume activities as tolerated. 5. Follow-up with your dye can operator within the next 2 weeks. TASHA WATERS NP Apr 26, 2019 14:02
[2019-04-26] MEDS: NITROGLYCERIN (SL) 0.4 MG TAB SL PRN ×2 (14:44→14:50)
--- NOTE | 2019-04-26 15:14 | DS ---
Date/Time of Note Date/Time of Note DATE: 04/26/19 TIME: 15:14 Discharge Summary Admission/Discharge Info Admit Date/Time Apr 24, 2019 at 09:15 Discharge Date/Time Discharge Diagnosis 1. Atypical Chest pain. 2. CAD status post multiple PCIs and CABG. 3. Diabetes mellitus type 2. Hemoglobin A1c 7.9. 4. Ischemic cardiomyopathy. Latest ejection fraction as per 2D echocardiogram on 02/20/2019 25 to 30%. 5. Dyslipidemia. 6. Severe peripheral vascular disease, status post left BKA. 7. Nicotine use. 8. Normocytic anemia. 9. Hypertension. 10. Anxiety disorder. Patient Condition: Stable Consults 1. Justin Borges MD, Cardiology. Procedures CXR IMPRESSION: 1. Stable mild cardiomegaly and aortic atherosclerosis. 2. No evidence of acute cardiopulmonary process. Hx of Present Illness This is a 63-year-old male with comorbidities including ischemic cardiomyopathy, CAD status post multiple PCIs and CABG, diabetes mellitus type 2, hypertension, and peripheral vascular disease status post left below-knee amputation, who came to the emergency room with a chief complaint of chest pain who was admitted to inpatient setting for further treatment and evaluation. Hospital Course Serial troponins were ordered. A cardiology consult was obtained. The patient's serial troponins remained negative. Etiology of the chest patient's chest pain is unclear. It could be possibly related to underlying hypertension that was uncontrolled. The patient also has underlying anxiety disorder with anxiety spells that was probably contributing to the patient's underlying chest pain. The patient was ruled out for any underlying ACS. The patient has a prior history of CAD and he is status post multiple PCIs and CABG. The patient was continued on dual antiplatelet therapy and high-dose statins. For unclear reasons, the patient was not taking antihypertensives as prescribed at home. The patient was resumed on ARBs along with beta-blockers. The patient was also added on calcium channel blockers, thiazide diuretic, and a potassium sparing diuretic. The patient has underlying cardiomyopathy with ejection fraction 25 to 30%. The patient was maintained on BBs, and aldosterone antagonist. The patient did not have any evidence of any acute exacerbation of underlying CHF. The patient was maintained on statins. The patient was also started on Zetia for optimal lipid control. The patient has a history of severe peripheral vascular disease and is status post left BKA. He was maintained on dual antiplatelet therapy and statins. The patient has outpatient surgical follow-up with the vascular surgeon in the near future. The patient has quit nicotine use for approximately 6-1/2 years. However, he resumed smoking. The patient was advised multiple times on the importance of staying away from the use of nicotine. The patient was maintained on PRN anxiolytics for his underlying anxiety disorder. The patient had a stable hospital course. The patient was cleared by cardiology to be discharged home. Discharge Instructions 1. Take medications as per prescription. 2. Take a low-cholesterol, low carbohydrate diet. 3. Refrain from using tobacco. 4. Resume activities as tolerated. 5. Follow-up with your energy and conservation technician within the next 2 weeks. The patient verbalized understanding of discharge instructions. At this time I would like to thank all the consultants for seeing the patient and providing clinical recommendations. The patient was seen in collaboration with Dr. Arvizu. [place] Meds Active Scripts Ezetimibe (Ezetimibe) 10 Mg Tablet, 10 MG PO QHS, #30 TAB Prov:TASHA WATERS NP 04/26/19 Spironolactone* (Aldactone*) 25 Mg Tablet, 25 MG PO DAILY, #30 TAB Prov:TASHA WATERS NP 04/26/19 Hydrochlorothiazide* (Hydrochlorothiazide*) 25 Mg Tab, 25 MG PO DAILY@0600, #30 TAB Prov:TASHA WATERS NP 04/26/19 Losartan Potassium* (Losartan Potassium*) 100 Mg Tablet, 100 MG PO DAILY, #30 TAB Prov:TASHA WATERS NP 04/26/19 Lorazepam* (Lorazepam*) 0.5 Mg Tablet, 0.5 MG PO HS PRN for ANXIETY, #10 TAB Prov:TASHA WATERS NP 04/26/19 Amlodipine Besylate* (Amlodipine Besylate*) 2.5 Mg Tablet, 2.5 MG PO DAILY for 30 Days, #30 TAB Prov:TASHA WATERS NP 04/26/19 Reported Medications Sennosides* (Senna Lax*) 8.6 Mg Tablet, 1 TAB PO DAILY, TAB 03/23/19 Insulin Lispro (Humalog) 100 Unit/1 Ml Cartridge, 0 SQ BID, EA 5-10 UNITS-SLIDING SCALE 03/23/19 Clopidogrel Bisulfate* (Clopidogrel Bisulfate*) 75 Mg Tablet, 75 MG PO DAILY, #30 TAB 5/22/19 Atorvastatin* (Atorvastatin*) 80 Mg Tablet, 80 MG PO QHS, #30 TAB 03/23/19 Metformin Hcl* (Metformin Hcl*) 1,000 Mg Tablet, 1000 MG PO WITH BREAKFAST DINN E, #60 TAB 03/23/19 Carvedilol* (Carvedilol*) 25 Mg Tablet, 25 MG PO BID, #60 TAB 03/23/19 Aspirin* (Aspirin* EC) 81 Mg Tablet.dr, 81 MG PO DAILY, TAB 03/23/19 Insulin Glargine,Hum.rec.anlog (Basaglar Kwikpen U-100) 100 Unit/1 Ml Insuln.pen, 45 UNIT SC BID, EA 03/23/19 Discontinued Reported Medications Furosemide* (Furosemide*) 40 Mg Tablet, 40 MG PO DAILY, TAB 03/23/19 Follow-up Plan Justin Borges MD Specialty: Interventional Cardiology Office Address [address] [place] [id number] Office Primary Care Provider Time spent on discharge: > 30 minutes Pending Labs Laboratory Tests Test 04/25/19 16:41 04/25/19 17:57 04/26/19 02:39 04/26/19 05:53 Bedside 332 283 101 Glucose mg/dL (70-220) mg/dL (70-220) mg/dL (70-220) White Blood 7.9 Count 10^3/ul (4.8-1 0.8) Red Blood 4.20 Count 10^6/ul (4.70- 6.10) Hemoglobin 11.0 g/dl (14.0-18. 0) Hematocrit 35.5 % (42.0-52.0) Mean 84.5 Corpuscular fl (82.0-101.0 Volume ) Mean 26.2 Corpuscular pg (29.0-33.0) Hemoglobin Mean 31.0 Corpuscular g/dl (32.0-37. Hemoglobin Conc 0) ent Red Cell 15.3 Distribution % (11.5-14.5) Width Platelet Count 194 10^3/UL (140-4 15) Mean Platelet 11.7 Volume fl (7.4-10.4) Immature 0.300 Granulocytes % % (0.001-0.429 ) Neutrophils % 59.3 % (39.0-77.0) Lymphocytes % 30.8 % (15.0-51.0) Monocytes % 7.5 % (0.0-11.0) Eosinophils % 1.5 % (0.0-7.0) Basophils % 0.6 % (0.0-2.0) Nucleated Red 0.0 Blood Cells % /100WBC (0.0-0 .0) Immature 0.020 Granulocytes # 10^3/ul (0.0-0 .031) Neutrophils # 4.7 10^3/ul (1.6-7 .5) Lymphocytes # 2.4 10^3/ul (0.8-2 .9) Monocytes # 0.6 10^3/ul (0.3-0 .9) Eosinophils # 0.1 10^3/ul (0.0-0 .5) Basophils # 0.1 10^3/ul (0.0-0 .1) Nucleated Red 0.0 Blood Cells # 10^3/ul (0.0-0 .0) Sodium Level 145 mmol/L (135-14 4) Potassium 4.0 Level mmol/L (3.5-5. 1) Chloride Level 109 mmol/L (97-110 ) Carbon Dioxide 27 Level mmol/L (21-31) Anion Gap 9 (5-13) Blood Urea 15 Nitrogen mg/dl (7-20) Creatinine 0.88 mg/dl (0.61-1. 24) Est Glomerular > 60 Filtrat mL/min (>60) Rate mL/min Glucose Level 100 mg/dl (70-220) Calcium Level 9.1 mg/dl (8.4-10. 2) Phosphorus 4.0 Level mg/dl (2.5-4.9 ) Magnesium 2.1 Level mg/dl (1.7-2.5 ) B-Type 1680 Natriuretic PG/ML (0-125) Peptide Test 04/26/19 07:47 04/26/19 11:44 Bedside 110 153 Glucose mg/dL (70-220) mg/dL (70-220) TASHA WATERS NP Apr 26, 2019 15:14
[2019-04-26] MEDS ORDERED: AMLODIPINE 2.5 MG TAB PO SCH (21:00)
== END 2019-04-26 17:59 | disposition home or self-care (01) | DRG 313 ==
LOC: E/R 06:47 → TEL 09:15
PROVIDERS: ADMIT Internal Medicine; ATTEND Internal Medicine
DX: R07.89 Other chest pain (principal); I25.5 Ischemic cardiomyopathy; E11.51 Type 2 diabetes mellitus with diabetic peripheral angiopathy without gangrene; F17.200 Nicotine dependence, unspecified, uncomplicated; D64.9 Anemia, unspecified; I10 Essential (primary) hypertension; I25.10 Atherosclerotic heart disease of native coronary artery without angina pectoris; E78.5 Hyperlipidemia, unspecified; F41.9 Anxiety disorder, unspecified; Z89.512 Acquired absence of left leg below knee; I25.2 Old myocardial infarction; Z95.1 Presence of aortocoronary bypass graft
CPT/HCPCS: 36415; 71045; 80048; 80061; 82550; 82553; 82962; 83036; 83735; 83880; 84100; 84439; 84443; 84484; 85025; 85610; 85730; 92610; 93005; 97162; 97166; J1650; J1815; J2270; J2405

== ENCOUNTER 2019-05-15 20:45 | Emergency (ER) | payer OTHER ==
[~2019-05-15] VITALS: Ht 175.3 cm; Wt 95.0 kg
[~2019-05-15 20:45] MED LIST changes: +EZET10TA32 PO; -FURO40TA4 PO; +HYDR25TA6 PO; +SPIR25TA PO
[2019-05-15 20:48] VITALS: Ht 175.3 cm; Wt 95.0 kg
[2019-05-15] MEDS ORDERED: NITROGLYCERIN 2% 1 GM OINT PKT TD STA (20:53)
[2019-05-15] MEDS ORDERED: ASPIRIN 81 MG TAB PO STA (20:53)
[2019-05-15] MEDS ORDERED: NITROGLYCERIN (SL) 0.4 MG TAB SL PRN (21:00)
[2019-05-15] MEDS ORDERED: ONDANSETRON 4 MG INJ IV PRN (22:30)
[2019-05-15] MEDS ORDERED: ACETAMINOPHEN 325 MG TAB PO PRN (22:30)
--- NOTE | 2019-05-15 22:48 | ERD ---
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 The patient was brought in by ambulance. He has midsternal chest pressure which he says is better now. Upon review of old medical record the patient has multiple visits to the emergency department with admissions. ROS All systems reviewed and are negative except as per history of present illness. Medications Home Meds Active Scripts Ezetimibe (Ezetimibe) 10 Mg Tablet, 10 MG PO QHS, #30 TAB Prov:TASHA WATERS NP 04/26/19 Spironolactone* (Aldactone*) 25 Mg Tablet, 25 MG PO DAILY, #30 TAB Prov:TASHA WATERS NP 04/26/19 Hydrochlorothiazide* (Hydrochlorothiazide*) 25 Mg Tab, 25 MG PO DAILY@0600, #30 TAB Prov:TASHA WATERS NP 04/26/19 Losartan Potassium* (Losartan Potassium*) 100 Mg Tablet, 100 MG PO DAILY, #30 TAB Prov:TASHA WATERS NP 04/26/19 Lorazepam* (Lorazepam*) 0.5 Mg Tablet, 0.5 MG PO HS PRN for ANXIETY, #10 TAB Prov:TASHA WATERS NP 04/26/19 Amlodipine Besylate* (Amlodipine Besylate*) 2.5 Mg Tablet, 2.5 MG PO DAILY for 30 Days, #30 TAB Prov:TASHA WATERS NP 04/26/19 Reported Medications Sennosides* (Senna Lax*) 8.6 Mg Tablet, 1 TAB PO DAILY, TAB 03/23/19 Insulin Lispro (Humalog) 100 Unit/1 Ml Cartridge, 0 SQ BID, EA 5-10 UNITS-SLIDING SCALE 03/23/19 Clopidogrel Bisulfate* (Clopidogrel Bisulfate*) 75 Mg Tablet, 75 MG PO DAILY, #30 TAB 03/23/19 Atorvastatin* (Atorvastatin*) 80 Mg Tablet, 80 MG PO QHS, #30 TAB 03/23/19 Metformin Hcl* (Metformin Hcl*) 1,000 Mg Tablet, 1000 MG PO WITH BREAKFAST DINNE, #60 TAB 03/23/19 Carvedilol* (Carvedilol*) 25 Mg Tablet, 25 MG PO BID, #60 TAB 03/23/19 Aspirin* (Aspirin* EC) 81 Mg Tablet.dr, 81 MG PO DAILY, TAB 03/23/19 Insulin Glargine,Hum.rec.anlog (Basaglar Crescenciopen U-100) 100 Unit/1 Ml Insuln.pen, 45 UNIT SC BID, EA 03/23/19 Allergies Allergies: Coded Allergies: No Known Allergy (Unverified , 04/24/19) PMhx/Soc History of Surgery: Yes (cabg, left bka) Anesthesia Reaction: No Hx Neurological Disorder: No Hx Respiratory Disorders: Yes (current smoker ) Hx Cardiac Disorders: Yes (htn, hlp, cad, mi, cabg, chf ) Hx Psychiatric Problems: Yes (anxiety, depression) Hx Alcohol Use: No Hx Substance Use: No Hx Tobacco Use: Yes Smoking Status: Current every day smoker FmHx Family History: coronary disease Physical Exam Vitals Vital Signs Date Temp Pulse Resp B/P (MAP) Pulse Ox O2 O2 Flow FiO2 Time Delivery Rate 05/15/19 98.9 75 19 144/82 96 20:48 (102) 05/15/19 98.9 76 18 149/81 96 Room Air 20:48 (103) Physical Exam Const: No acute distress Head: Atraumatic Eyes: Normal Conjunctiva ENT: Normal External Ears, Nose and Mouth. Neck: Full range of motion. No meningismus. Resp: Clear to auscultation bilaterally Cardio: Regular rate and rhythm, no murmurs Abd: Soft, non tender, non distended. Normal bowel sounds Skin: No petechiae or rashes Back: No midline or flank tenderness Ext: No cyanosis, or edema Neur: Awake and alert Psych: Normal Mood and Affect Result Diagram: 05/15/19211805/15/192118 Results 24 hrs Laboratory Tests Test 05/15/19 21:19 White Blood Count 11.4 10^3/ul Red Blood Count 4.39 10^6/ul Hemoglobin 11.9 g/dl Hematocrit 36.9 % Mean Corpuscular Volume 84.1 fl Mean Corpuscular Hemoglobin 27.1 pg Mean Corpuscular Hemoglobin Concent 32.2 g/dl Red Cell Distribution Width 14.6 % Platelet Count 207 10^3/UL Mean Platelet Volume 10.9 fl Immature Granulocytes % 0.300 % Neutrophils % 69.7 % Lymphocytes % 21.2 % Monocytes % 7.5 % Eosinophils % 1.0 % Basophils % 0.3 % Nucleated Red Blood Cells % 0.0 /100WBC Immature Granulocytes # 0.030 10^3/ul Neutrophils # 8.0 10^3/ul Lymphocytes # 2.4 10^3/ul Monocytes # 0.9 10^3/ul Eosinophils # 0.1 10^3/ul Basophils # 0.0 10^3/ul Nucleated Red Blood Cells # 0.0 10^3/ul Sodium Level 140 mmol/L Potassium Level 4.2 mmol/L Chloride Level 106 mmol/L Carbon Dioxide Level 25 mmol/L Anion Gap 9 Blood Urea Nitrogen 18 mg/dl Creatinine 0.92 mg/dl Est Glomerular Filtrat Rate mL/min > 60 mL/min Glucose Level 143 mg/dl Calcium Level 9.9 mg/dl Troponin I 0.013 ng/ml Current Medications Medications Dose Sig/Masha Start Time Status Last (Trade) Ordered Route PRN Stop Time Admin Dose Reason Admin Aspirin 162 mg ONCE STAT 05/15/19 DC 05/15/19 (Aspirin) PO 20:53 20:59 05/15/19 20:54 1 inch ONCE STAT 05/15/19 DC Nitroglycerin TD 20:53 05/15/19 20:54 (Nitroglyceri n 2% Oint) 1 tab Q5M UP TO 3 05/15/19 Nitroglycerin DOSES PRN 21:00 SL .CHEST (Nitroglyceri PAIN n (Sl Tab) 0.4 Mg) Ondansetron 4 mg ER BRIDGE 05/15/19 HCl (Zofran PRN IV 22:30 Inj) NAUSEA/VOMITI 05/16/19 22:29 NG 650 mg ER BRIDGE 05/15/19 Acetaminophen PRN PO 22:30 (Tylenol .MILD PAIN 05/16/19 22:29 Tab) 1-3 OR TEMP Procedures/MDM EKG read by me: Rate/Rhythm: Regular rate and rhythm at a rate of 73 Intervals: Normal Impression: No evidence of ischemia or arrhythmia Chest x-ray read by radiology. Patient is a 64-year-old male with multiple cardiac risk factors who presents with chest pain. He was given aspirin and nitroglycerin. I am concerned for acute coronary syndrome. I doubt pneumonia, pneumothorax, pulmonary embolism, or aortic dissection. The patient will be admitted to the care of Dr. Almanzar to telemetry bed. Departure Diagnosis: Primary Impression: Chest pain Chest pain type: unspecified Qualified Codes: R07.9 - Chest pain, unspecified Condition: KEVIN Lizama MD May 15, 2019 22:48
[2019-05-15 23:23] VITALS: BP 144/71; PULSE 69; RESP 16
== END 2019-05-15 23:34 | disposition left against medical advice (07) ==
LOC: E/R 20:45 → CANBEDREQ 23:46
DX: I11.0 Hypertensive heart disease with heart failure (principal); F17.210 Nicotine dependence, cigarettes, uncomplicated; I50.9 Heart failure, unspecified; I25.2 Old myocardial infarction; I25.10 Atherosclerotic heart disease of native coronary artery without angina pectoris; E11.9 Type 2 diabetes mellitus without complications; Z79.01 Long term (current) use of anticoagulants; Z79.4 Long term (current) use of insulin; Z79.82 Long term (current) use of aspirin; Z95.1 Presence of aortocoronary bypass graft
CPT/HCPCS: 71045; 80048; 84484; 85025; 93005; Z7502

== ENCOUNTER 2019-06-19 03:03 | Observation (INO) | payer OTHER ==
[~2019-06-19] VITALS: Ht 177.8 cm; Wt 88.8 kg
[~2019-06-19 03:03] MED LIST changes: +CLIN300C10 PO
[2019-06-19] MEDS ORDERED: DEXTROSE 50% 50 ML SYRINGE IV PRN ×2 (05:00)
[2019-06-19] MEDS ORDERED: ALBUTEROL/IPRATROPIUM (NEB) 3 ML AMP HHN PRN (05:00)
[2019-06-19] MEDS ORDERED: GLUCOSE GEL 15 GRAM TUBE BUCCAL PRN (05:00)
[2019-06-19] MEDS ORDERED: NACL 0.9% 3 ML SYG IV SCH (05:00)
[2019-06-19] MEDS ORDERED: ONDANSETRON 4 MG INJ IV PRN ×2 (05:00)
[2019-06-19] MEDS ORDERED: ACETAMINOPHEN 325 MG TAB PO PRN ×2 (05:00)
[2019-06-19] MEDS ORDERED: GLUCOSE GEL 15 GRAM TUBE PO PRN ×2 (05:00)
[2019-06-19] MEDS ORDERED: GLUCAGON 1 MG INJ IM PRN (05:00)
[2019-06-19] MEDS: HYDROCHLOROTHIAZIDE 25 MG TAB PO SCH (06:21)
[2019-06-19] MEDS: INSULIN ASPART [NOVOLOG] 3 ML PEN SC SCH ×7 (08:00→22:39)
[2019-06-19] MEDS ORDERED: HYDROmorphONE 1 MG/ML SYG ONE (08:25)
[2019-06-19] MEDS ORDERED: INSULIN GLARGINE [LANtus] 3 ML PEN SC SCH (09:00)
[2019-06-19] MEDS: morphine 4 MG/ML VIAL IV PRN ×3 (09:02→20:38)
[2019-06-19] MEDS: INSULIN GLARGINE [LANtus] 3 ML PEN SC SCH ×2 (11:41→22:34)
[2019-06-19] MEDS: LOSARTAN 50 MG TAB PO SCH (11:43)
[2019-06-19] MEDS: AMLODIPINE 2.5 MG TAB PO SCH (11:44)
[2019-06-19] MEDS: SENNA TAB PO SCH (11:44)
[2019-06-19] MEDS: SPIRONOLACTONE 25 MG TAB PO SCH (11:44)
[2019-06-19] MEDS: HEPARIN 5,000 UNIT/1 ML VIAL SC SCH ×2 (11:45→20:44)
[2019-06-19] MEDS: ASPIRIN (EC) 81 MG TAB PO SCH (11:47)
[2019-06-19] MEDS: LORAZEPAM 0.5 MG TAB PO PRN (11:47)
[2019-06-19] MEDS: CLOPIDOGREL 75 MG TAB PO SCH (11:47)
[2019-06-19 17:15] VITALS: Ht 177.8 cm; Wt 88.8 kg
[2019-06-19 17:19] VITALS: BP 124/60; PULSE 65; RESP 20
[2019-06-19 20:38] VITALS: BP 138/65; PULSE 64; RESP 18
[2019-06-19] MEDS: EZETIMIBE 10 MG TAB PO SCH (20:41)
[2019-06-19] MEDS: ATORVASTATIN 80 MG TAB PO SCH (20:42)
[2019-06-20 00:14] VITALS: BP 117/59; PULSE 60; RESP 18
[2019-06-20] MEDS: morphine 4 MG/ML VIAL IV PRN ×5 (02:00→20:22)
[2019-06-20] MEDS: ACCU-CHEK XX SCH (02:18)
[2019-06-20 03:44] VITALS: BP 114/58; PULSE 55; RESP 18
[2019-06-20] MEDS: HYDROCHLOROTHIAZIDE 25 MG TAB PO SCH (05:21)
[2019-06-20 07:19] VITALS: BP 114/56; PULSE 60; RESP 17
[2019-06-20] MEDS: INSULIN ASPART [NOVOLOG] 3 ML PEN SC SCH ×7 (07:31→20:25)
[2019-06-20] MEDS: NITROGLYCERIN (SL) 0.4 MG TAB SL PRN ×4 (07:32→17:05)
[2019-06-20] MEDS: ASPIRIN (EC) 81 MG TAB PO SCH (07:33)
[2019-06-20] MEDS: LOSARTAN 50 MG TAB PO SCH (07:33)
[2019-06-20] MEDS: SENNA TAB PO SCH (07:33)
[2019-06-20] MEDS: SPIRONOLACTONE 25 MG TAB PO SCH (07:33)
[2019-06-20] MEDS: AMLODIPINE 2.5 MG TAB PO SCH (07:33)
[2019-06-20] MEDS: CLOPIDOGREL 75 MG TAB PO SCH (07:33)
[2019-06-20] MEDS: HEPARIN 5,000 UNIT/1 ML VIAL SC SCH ×2 (07:39→20:38)
[2019-06-20] MEDS: INSULIN GLARGINE [LANtus] 3 ML PEN SC SCH ×2 (08:49→22:08)
[2019-06-20 11:34] VITALS: BP 102/58; PULSE 82; RESP 17
[2019-06-20 15:32] VITALS: BP 122/59; PULSE 62; RESP 17
[2019-06-20 20:00] VITALS: BP 138/63; PULSE 59; RESP 18
[2019-06-20] MEDS: EZETIMIBE 10 MG TAB PO SCH (20:30)
[2019-06-20] MEDS: ATORVASTATIN 80 MG TAB PO SCH (20:31)
[2019-06-20] MEDS: LORAZEPAM 0.5 MG TAB PO PRN (22:02)
[2019-06-21] VITALS: BP 126/64; PULSE 60; RESP 18
[2019-06-21] MEDS: morphine 4 MG/ML VIAL IV PRN ×2 (01:07→05:43)
[2019-06-21] MEDS: ACCU-CHEK XX SCH (01:37)
[2019-06-21 04:00] VITALS: BP 130/58; PULSE 58; RESP 20
[2019-06-21] MEDS: HYDROCHLOROTHIAZIDE 25 MG TAB PO SCH (05:43)
[2019-06-21 07:27] VITALS: BP 135/65; PULSE 71; RESP 17
[2019-06-21] MEDS: INSULIN ASPART [NOVOLOG] 3 ML PEN SC SCH ×2 (07:55→08:48)
[2019-06-21] MEDS: SPIRONOLACTONE 25 MG TAB PO SCH (08:07)
[2019-06-21] MEDS: CLOPIDOGREL 75 MG TAB PO SCH (08:07)
[2019-06-21] MEDS: SENNA TAB PO SCH (08:07)
[2019-06-21] MEDS: ASPIRIN (EC) 81 MG TAB PO SCH (08:07)
[2019-06-21] MEDS: LOSARTAN 50 MG TAB PO SCH (08:08)
[2019-06-21] MEDS: AMLODIPINE 2.5 MG TAB PO SCH (08:08)
[2019-06-21] MEDS: HEPARIN 5,000 UNIT/1 ML VIAL SC SCH (08:50)
[2019-06-21 11:37] VITALS: BP 115/56; PULSE 61; RESP 17
[2019-06-21] MEDS: INSULIN GLARGINE [LANtus] 3 ML PEN SC SCH (11:48)
== END 2019-06-21 12:08 | disposition home or self-care (01) ==
LOC: E/R 03:03 → TEL 04:41
PROVIDERS: ADMIT Internal Medicine; ATTEND Internal Medicine
DX: R07.9 Chest pain, unspecified (principal); I25.10 Atherosclerotic heart disease of native coronary artery without angina pectoris; Z95.1 Presence of aortocoronary bypass graft; Z95.5 Presence of coronary angioplasty implant and graft; I25.5 Ischemic cardiomyopathy; I11.0 Hypertensive heart disease with heart failure; I50.9 Heart failure, unspecified; E78.5 Hyperlipidemia, unspecified; E11.9 Type 2 diabetes mellitus without complications; I25.2 Old myocardial infarction; Z79.82 Long term (current) use of aspirin; Z79.4 Long term (current) use of insulin; Z89.512 Acquired absence of left leg below knee
CPT/HCPCS: 36415; 71045; 80053; 82550; 82553; 82962; 83036; 83690; 83735; 83880; 84484; 85025; 93005; 93306; J1644; J1815; J2270; J2405; Z7500; Z7502; Z7610; 99217; G0378; J1170

== ENCOUNTER 2019-06-21 16:34 | Emergency (ER) | payer OTHER ==
[~2019-06-21] VITALS: Ht 170.2 cm; Wt 94.0 kg
[2019-06-21 17:11] VITALS: Ht 170.2 cm; Wt 94.0 kg
[2019-06-21 18:51] VITALS: BP 148/71; PULSE 83; RESP 16
== END 2019-06-21 18:56 | disposition home or self-care (01) ==
LOC: E/R 16:34
DX: R00.2 Palpitations (principal); G89.29 Other chronic pain; F41.9 Anxiety disorder, unspecified; I11.0 Hypertensive heart disease with heart failure; I50.9 Heart failure, unspecified; I25.2 Old myocardial infarction; Z95.1 Presence of aortocoronary bypass graft; Z79.4 Long term (current) use of insulin; Z79.82 Long term (current) use of aspirin; Z79.02 Long term (current) use of antithrombotics/antiplatelets
CPT/HCPCS: 71045; 80048; 84484; 85025; 93005; Z7502